=== PATIENT | female | born 1955 | race Caucasian/White ===

== ENCOUNTER 2017-09-12 16:19 | Inpatient (IN) | payer MEDICARE, SELFPAY ==
[2017-09-12] MEDS: Menthol/Lanolin/Calamine/Znox 113 GM Tube 1 APPLIC TOPICAL (16:20)
[2017-09-12 16:21] VITALS: BP 127/67; PULSE 88; RESP 16; TEMP 36.6; O2SAT 98; BMI 50.8
[2017-09-12 17:16] LABS: Absolute Lymphocyte Count 1.17 X10^3/ul (0.83-4.51); Basophil# 0.05 X10^3/uL; Basophil% 0.5 % (0-1); Eosinophil# 0.85 X10^3/uL; Eosinophils% 8.3 % (0-5); Hematocrit 28.7 % (37-47); Lymphocyte # 1.17 X10^3/ul (4.0); Lymphocyte % 11.4 % (19-41); Mean Corp Hgb Conc 31.4 g/gl (32-36); Mean Corpuscular Hgb 26.2 pg (27.0-32.0); Mean Corpuscular Volume 83.4 fL (81-99); Mean Platelet Vol. 9.5 fl (6.2-12.0); Monocyte# 1.15 X10^3/uL; Monocyte% 11.2 % (0-10); Neutrophil # 7.02 X10^3/uL (2.7-7.7); Neutrophil % 68.4 % (47-70); POSITIVE COUNT NO; POSITIVE DIFFERENTIAL NO; POSITIVE MORPHOLOGY NO; Platelet Count 289 K/mm3 (150-450); RBC Distribution Width CV 14.9 % (11.6-14.6); RBC Distribution Width SD 44.1 fl (35.1-43.9); Red Blood Count 3.44 M/mm3 (4.2-5.4); White Blood Count 10.3 K/mm3 (4.4-11.0)
--- NOTE | 2017-09-12 17:20 | RAD_ITS ---
STUDY: X-RAY - RIGHT FOOT CLINICAL: Female, 61 years old. Diabetic foot ulcer. TECHNIQUE: 3 view(s) of the foot. COMPARISON: 03/20/2017 FINDINGS: The patient is status post amputation of the first toe. There is no evidence of fracture or dislocation. There are no definite radiographic findings of osteomyelitis. There is a stable plantar calcaneal spur. There is mild soft tissue swelling. RAD/Foot min 3 Views IMPRESSION: Status post amputation of the right first toe. No fracture or dislocation. No definite radiographic findings of osteomyelitis. If concern persists, consider further evaluation with MRI. Soft tissue swelling. Electronically Signed: Sonny Weber, at 17:39 EDT Tel , Service support ,
[2017-09-12 17:24] LABS: Anion Gap 9 (5-15); BUN 75 mg/dL (7-18); BUN/Creat Ratio 22.1 RATIO (10-20); Calcium,Total 9.7 mg/dL (8.5-10.1); Chloride 105 mmol/L (98-107); EST Glomerular Filtration Rate 15 mL/min (>60); Est Glom Filt Rate - Afr Amer 18 mL/min (>60); Estimated Creatinine Clearance 17.32 ml/min; Glucose 155 mg/dL (74-106); Potassium 5.6 mmol/L (3.5-5.1); Sodium Level 139 mmol/L (136-145)
[2017-09-12 18:11] LABS: Erythrocyte Sedimentation Rate 24 mm/hr (0-30)
[2017-09-12 18:25] VITALS: BP 133/59; PULSE 84; O2SAT 98
--- NOTE | 2017-09-12 18:32 | ED.VISSUMM ---
- ER Visit Summary Date of Service: 09/12/17 Chief Complaint: Right diabetic foot infection History of Present Illness: The patient is a 61 F of insulin-dependent diabetes and renal insufficiency. She has had a prior left below-knee amputation from a prior diabetic infection. She has no neuropathies. She states for the last 2 days she has had redness and swelling to the medial and underneath surface of her right foot. She has no sensation of the foot so she does not feel any pain. She denies any fever. Physical Examination: Well-appearing middle-aged female. Vital signs are stable afebrile. HEENT exam unremarkable. Lungs clear to auscultation bilaterally. Heart regular rate and rhythm no murmur. Abdomen soft and nontender no peritoneal signs. She is moving all 4 extremities. Her left lower extremity below the knee is amputated. Her right foot on the middle and underneath surface is red warm to touch boggy and swollen. She does not have any pain and has neuropathy and does not have any sensation. Her right great toe has been previously amputated. There is an open wound also to the medial aspect of the foot. There is no purulent discharge. There is no lymphangitic streaking. There is no septic joint. There is no necrotic skin. Neurologically she is awake and alert. No focal motor deficits. Test Results: CBC showed a white count 10. H&H of 9 and 28 which is her baseline chronic anemia. Her sedimentation rate was 24. Her elect lites showed a potassium of 5.6. Gap of 9. Her BUN and creatinine were 75 and 3.4 most recent creatinine was 1.7 this is acute on chronic renal insufficiency. X-ray of the right foot showed a prior amputated great toe but no obvious signs of osteomyelitis. Nor any gas gangrene. Read both by myself and radiologist. Emergency Department Course and Treatment: Patient has an obvious right foot diabetic infection. She was treated with IV Zosyn. And will need to be admitted. Treatment Plan: I spoke with the hospitalist who will admit the patient to the floor. Disposition: Admission Impression: Acute right diabetic foot infection Acute on chronic renal insufficiency History of insulin-dependent diabetes This note was generated with [employer] software. It may contain incorrect words, spelling, and punctuation that were not noted in review of the chart prior to signing ED Disposition - Plan for ED Patient: Chief Complaint: Wound Referrals: Leroy Marie MD [Primary Care Provider] -
--- NOTE | 2017-09-12 18:35 | ED.DCSUM_ITS ---
- ER Visit Summary Date of Service: 09/12/17 Chief Complaint: Right diabetic foot infection History of Present Illness: The patient is a 61 F of insulin-dependent diabetes and renal insufficiency. She has had a prior left below-knee amputation from a prior diabetic infection. She has no neuropathies. She states for the last 2 days she has had redness and swelling to the medial and underneath surface of her right foot. She has no sensation of the foot so she does not feel any pain. She denies any fever. Physical Examination: Well-appearing middle-aged female. Vital signs are stable afebrile. HEENT exam unremarkable. Lungs clear to auscultation bilaterally. Heart regular rate and rhythm no murmur. Abdomen soft and nontender no peritoneal signs. She is moving all 4 extremities. Her left lower extremity below the knee is amputated. Her right foot on the middle and underneath surface is red warm to touch boggy and swollen. She does not have any pain and has neuropathy and does not have any sensation. Her right great toe has been previously amputated. There is an open wound also to the medial aspect of the foot. There is no purulent discharge. There is no lymphangitic streaking. There is no septic joint. There is no necrotic skin. Neurologically she is awake and alert. No focal motor deficits. Test Results: CBC showed a white count 10. H&H of 9 and 28 which is her baseline chronic anemia. Her sedimentation rate was 24. Her elect lites showed a potassium of 5.6. Gap of 9. Her BUN and creatinine were 75 and 3.4 most recent creatinine was 1.7 this is acute on chronic renal insufficiency. X- ray of the right foot showed a prior amputated great toe but no obvious signs of osteomyelitis. Nor any gas gangrene. Read both by myself and radiologist. Emergency Department Course and Treatment: Patient has an obvious right foot diabetic infection. She was treated with IV Zosyn. And will need to be admitted. Treatment Plan: I spoke with the hospitalist who will admit the patient to the floor. Disposition: Admission Impression: Acute right diabetic foot infection Acute on chronic renal insufficiency History of insulin-dependent diabetes This note was generated with [employer] software. It may contain incorrect words, spelling, and punctuation that were not noted in review of the chart prior to signing ED Disposition - Plan for ED Patient: Chief Complaint: Wound Referrals: Leroy Marie MD [Primary Care Provider] -
[2017-09-12 18:43] VITALS: BP 133/59; PULSE 85; RESP 16; O2SAT 96
--- NOTE | 2017-09-12 18:48 | PCM.HP.STD ---
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 The patient is a 61 year old F with multiple medical comorbidities as mentioned above was referred from the custodial because of right foot infected ulcer with erythema and swelling. The patient had a history of peripheral neuropathies and she mentioned that over the last couple of days, the nursing staff at the custodial noticed that there is some redness and swelling at the bottom of the right foot. Today, a doctor from the wound care center saw the patient at the custodial and recommended to be transferred to emergency department for evaluation. She denied any right foot pain. She denies any fever chills. She had a history of type 2 diabetes mellitus has been on high doses of insulin and her sugar is not well controlled, most recent A1c was back in March, and it was 7.9. She had a history of stage III chronic kidney disease and her baseline creatinine has been around 1.5-2 mg/dL but her creatinine today is 3.40 which is worsened compared to her baseline. She has a history of left below-knee amputation secondary to left diabetic foot and leg infections. She was admitted back in March, for right foot cellulitis/bulla and there was no evidence of osteomyelitis at that time and she had no intervention or surgery at that time too. In the emergency department, her vital signs are stable. Her routine blood work was remarkable for chronic anemia, potassium is 5.6 and creatinine is 3.40. X-ray of the right foot showed soft tissue swelling, no acute findings, no evidence of osteomyelitis. She is being admitted for infected diabetic right foot ulcer/cellulitis acute on chronic renal failure and mild hyperkalemia. Past Medical History Past Medical History (Chronic Problems): Chronic Problems History of tobacco abuse (Chronic) HLD (hyperlipidemia) (Chronic) HTN (hypertension) (Chronic) Morbid obesity (Chronic) bmi 46 Noncompliance (Chronic) with diabetic therapy Personality disorder (Chronic) History of self-harm (Chronic) scratching and picking Self neglect (Chronic) Type 2 diabetes mellitus (Chronic) Bipolar disorder (Chronic) Anxiety (Chronic) 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 2 diabetes mellitus with diabetic polyneuropathy (Chronic) Allergies adhesive Allergy (Verified 09/12/17 16:21) Rash cefadroxil hydrate [From Duricef] Allergy (Verified 09/12/17 16:21) Rash cephalexin monohydrate [From Keflex] Allergy (Verified 09/12/17 16:21) Rash venom-honey bee [bee venom (honey bee)] Allergy (Verified 09/12/17 16:21) Rash Home Medications: Ambulatory Orders Medication Instructions Recorded Quetiapine Fumarate [Seroquel] 200 mg PO QHS 01/06/13 Ascorbic Acid [Vitamin C] 500 mg PO BIDCM #30 tablet 10/10/13 Multivitamins,Therapeutic 1 tablet PO DAILYCM #30 tablet 10/10/13 [Multivitamin] Calcium Citrate/Vitamin D3 1 each PO BID 01/21/15 [Calcium Citrate-Vit D3 Tablet] Ferrous Sulfate 65 mg PO BIDCM 01/21/15 Lisinopril [Zestril] 20 mg PO BID 03/05/16 Acetaminophen [Tylenol Tablet] 650 mg PO Q8 PRN 03/20/17 Bisacodyl 10 mg RC DAILY PRN PRN 03/20/17 Hydrocortisone [Anusol Hc] 25 mg RECTAL 4X/DAY PRN PRN 03/20/17 Insulin Glargine,Hum.rec.anlog 55 unit SC DAILY 03/20/17 [Lantus] Insulin Lispro [Humalog] See Protocol SQ ACHS 03/20/17 Magnesium Hydroxide [Milk Of 30 ml PO DAILY PRN PRN 03/20/17 Magnesia] Promethazine HCl [Promethegan] 25 mg RC Q6H PRN 03/20/17 Venlafaxine XR [Effexor Xr] 225 mg PO DAILY 03/20/17 Apixaban [Eliquis] 5 mg PO BID 09/12/17 Cholecalciferol (Vitamin D3) 2,000 unit PO DAILY 09/12/17 [Vitamin D3] Cilostazol [Pletal] 50 mg PO BIDAC 09/12/17 Cyclobenzaprine [Flexeril] 10 mg PO QHS PRN 09/12/17 Furosemide [Lasix] 20 mg PO DAILY 09/12/17 Guaifenesin [Robitussin] 10 ml PO Q6H PRN PRN 09/12/17 Hydroxyzine HCl 25 mg PO DAILY 09/12/17 Insulin Glargine,Hum.rec.anlog 40 unit SC QHS 09/12/17 [Lantus] Loperamide [Imodium] 2 mg PO PRN PRN MDD 4 tabs/day 09/12/17 Paroxetine HCl [Paxil] 20 mg PO DAILY 09/12/17 Pravastatin [Pravachol] 10 mg PO DAILY 09/12/17 Sodium Chloride [Saline Nasal 2 spray NS Q2H PRN 09/12/17 [place]] Zinc Oxide 1 applic TOPICAL TID 09/12/17 hydrOXYzine pamoate capsule 50 mg PO QHS 09/12/17 [Vistaril pamoate capsule] Surgical History: - - foot surgeries, right great toe amputation, left below the knee amputation Psychiatric History: Anxiety, Bipolar, - - Picking disorder [employer] History: No pertinent [employer] history [place]: [place] Smoking Status: Former smoker Alcohol: None Drugs: None - *Family History Maternal History Items: - - No heart disease Paternal History Items: No pertinent history Review of Systems Constitutional: Denies: Anorexia, Chills, Fever, Weakness Eyes: Denies: Blurred vision, Double vision, Drainage, Redness HEENT: Denies: Difficulty Hearing, Ear Pain, Eye Pain, Nasal Congestion, Sore Throat Cardiovascular: Denies: Chest Pain, Chest Pressure, Chest Tightness, Heaviness, Palpitations, Syncope Respiratory: Denies: Cough, Pleuritic Pain, Shortness of Breath, Sputum production, Wheezing Gastrointestinal: Denies: Abdominal Pain, Constipation, Diarrhea, Nausea, Vomiting Genitourinary: Denies: Dysuria, Frequency, Hematuria Musculoskeletal: Denies: Arm Pain, Back Pain, Foot Pain Skin: Denies: Dryness, Rash Neurological: Denies: Balance problems, Double vision, Change in Speech, Headaches, Numbness Psychiatric: Reports: Anxiety, Depression Endocrine: Denies: Change in Body Habitus, Polydipsia VTE Information - Inpt Only VTE Present on Admission: No VTE Mechan Device Prophylaxis: None VTE Pharm Prophylaxis ordered?: No - Physical Exam General: Alert, Oriented x3, Cooperative, No apparent distress HEENT: Atraumatic, PERRLA, EOMI, Normocephalic Oral: Moist Mucosa, No Gingival or Mucosal Lesions/ Ulcerations Neck: Supple, No JVD, Negative Carotid Bruits, Trachea Midline, Thyroid Normal Size and Texture Lungs: Clear to auscultation, No rhonchi, No wheeze, No rales, Diminished Cardiovascular: Regular rate, Regular Rhythm, Normal S1, Normal S2, PMI Normal Abdomen: Bowel Sounds Present, Soft, Non Tender, Non-Distended, No Hepato-splenomegaly, Obese Extremities: No clubbing, No cyanosis, Edema Skin: No rashes, Ulcer/ Wound, - - Right foot: There is and also on the plantar lateral aspect of the right foot measuring about 3 x 3 cm with exposed fat layer surrounded by erythema and swelling. Musculoskeletal: - - Status post below left knee amputation. Neurological: Cranial nerves II-XII grossly intact, Neuro grossly intact Psych/Mental Status: Normal Affect, Appropriate, Alert and oriented to time, place, person, mood and affect Vital Signs Temp Pulse Resp BP Pulse Ox 97.9 F 85 16 133/59 H 96 09/12/17 16:21 09/12/17 18:43 09/12/17 18:43 09/12/17 18:43 09/12/17 18:43 Oxygen Delivery Method Room Air Weight: 325 lb Body Mass Index (BMI) 50.8 Laboratory Tests Past 24 Hrs 09/12/17 09/12/17 16:50 16:50 WBC 10.3 RBC 3.44 L Hgb 9.0 L Hct 28.7 L MCV 83.4 MCH 26.2 L MCHC 31.4 L RDW 14.9 H RDW Differential 44.1 H Plt Count 289 MPV 9.5 Immature Gran % (Auto) 0.200 Neut % (Auto) 68.4 Lymph % (Auto) 11.4 L Payette % (Auto) 11.2 H Eos % (Auto) 8.3 H Baso % (Auto) 0.5 Absolute Neuts (auto) 7.0 Absolute Lymphs (auto) 1.17 Total Counted Not Reportable ESR 24 Sodium 139 Potassium 5.6 H Chloride 105 Carbon Dioxide 25.0 Anion Gap 9 BUN 75 H Creatinine 3.40 H Estim Creat Clear Calc 17.32 Est GFR (MDRD) Af Amer 18 L Est GFR (MDRD) Non-Af 15 L BUN/Creatinine Ratio 22.1 H Glucose 155 H Calcium 9.7 Clinical Impression(s) from Imaging Studies Foot X-Ray 09/12/17 17:20 IMPRESSION: Status post amputation of the right first toe. No fracture or dislocation. No definite radiographic findings of osteomyelitis. If concern persists, consider further evaluation with MRI. Soft tissue swelling. 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 #1 acute diabetic infected right foot ulcer/cellulitis: Vital signs are stable, no evidence of sepsis or severe sepsis. She is afebrile, no leukocytosis. Plan: Admit to MedSurg floor, cardiac monitoring, stat blood culture, wound culture, MRSA wound screen, start IV vancomycin and Zosyn, ESR and C-reactive protein, podiatry consult, repeat CBC and BMP tomorrow morning, PT OT evaluation and treatment. Patient is on Eliquis twice daily and she is not sure why she is on Eliquis, need to clarify with the custodial. #2 acute kidney injury on top of stage III chronic kidney disease: Baseline creatinine has been around 1.4-2 mg/dL. Admission creatinine is 3.40. Plan: IV fluids, input of the chart, hold Lasix and lisinopril, repeat BMP tomorrow morning. #3 mild hyperkalemia: Potassium is 5.6. Plan to perform an EKG, IV fluids with normal saline, repeat BMP tomorrow morning, hold lisinopril. #4 type 2 diabetes mellitus: ADA diet, Accu-Cheks, and systolic scale, continue home doses of Lantus. #5 hypertension: Blood pressure stable, hold Lasix and lisinopril, IV hydralazine as needed. #6 hyperlipidemia: Continue statins. #7 anxiety/bipolar disorder: Continue Paxil and Effexor. #8 chronic anemia: Baseline hemoglobin around 8-11 g/dL, admission hemoglobin is 9 g/dL, stable at baseline. #9 DVT prophylaxis: Subcu heparin. This note was generated with [employer] dictation software. It may contain incorrect words, spelling, and punctuation that were not noted in checking the note before signing. Code Visit Inpatient E&M: 01168 Init Hosp L3
--- NOTE | 2017-09-12 18:58 | HP.PCM_ITS ---
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 The patient is a 61 year old F with multiple medical comorbidities as mentioned above was referred from the snf because of right foot infected ulcer with erythema and swelling. The patient had a history of peripheral neuropathies and she mentioned that over the last couple of days, the nursing staff at the snf noticed that there is some redness and swelling at the bottom of the right foot. Today, a doctor from the wound care center saw the patient at the snf and recommended to be transferred to emergency department for evaluation. She denied any right foot pain. She denies any fever chills. She had a history of type 2 diabetes mellitus has been on high doses of insulin and her sugar is not well controlled, most recent A1c was back in March, and it was 7.9. She had a history of stage III chronic kidney disease and her baseline creatinine has been around 1.5-2 mg/dL but her creatinine today is 3.40 which is worsened compared to her baseline. She has a history of left below-knee amputation secondary to left diabetic foot and leg infections. She was admitted back in March, for right foot cellulitis/ bulla and there was no evidence of osteomyelitis at that time and she had no intervention or surgery at that time too. In the emergency department, her vital signs are stable. Her routine blood work was remarkable for chronic anemia, potassium is 5.6 and creatinine is 3.40. X-ray of the right foot showed soft tissue swelling, no acute findings, no evidence of osteomyelitis. She is being admitted for infected diabetic right foot ulcer/cellulitis acute on chronic renal failure and mild hyperkalemia. Past Medical History Past Medical History (Chronic Problems): Chronic Problems History of tobacco abuse (Chronic) HLD (hyperlipidemia) (Chronic) HTN (hypertension) (Chronic) Morbid obesity (Chronic) bmi 46 Noncompliance (Chronic) with diabetic therapy Personality disorder (Chronic) History of self-harm (Chronic) scratching and picking Self neglect (Chronic) Type 2 diabetes mellitus (Chronic) Bipolar disorder (Chronic) Anxiety (Chronic) 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 2 diabetes mellitus with diabetic polyneuropathy (Chronic) Allergies adhesive Allergy (Verified 09/12/17 16:21) Rash cefadroxil hydrate [From Duricef] Allergy (Verified 09/12/17 16:21) Rash cephalexin monohydrate [From Keflex] Allergy (Verified 09/12/17 16:21) Rash venom-honey bee [bee venom (honey bee)] Allergy (Verified 09/12/17 16:21) Rash Home Medications: Ambulatory Orders Medication Instructions Recorded Quetiapine Fumarate [Seroquel] 200 mg PO QHS 01/06/13 Ascorbic Acid [Vitamin C] 500 mg PO BIDCM #30 tablet 10/10/13 Multivitamins,Therapeutic 1 tablet PO DAILYCM #30 tablet 10/10/13 [Multivitamin] Calcium Citrate/Vitamin D3 1 each PO BID 01/21/15 [Calcium Citrate-Vit D3 Tablet] Ferrous Sulfate 65 mg PO BIDCM 01/21/15 Lisinopril [Zestril] 20 mg PO BID 03/05/16 Acetaminophen [Tylenol Tablet] 650 mg PO Q8 PRN 03/20/17 Bisacodyl 10 mg RC DAILY PRN PRN 03/20/17 Hydrocortisone [Anusol Hc] 25 mg RECTAL 4X/DAY PRN PRN 03/20/17 Insulin Glargine,Hum.rec.anlog 55 unit SC DAILY 03/20/17 [Lantus] Insulin Lispro [Humalog] See Protocol SQ ACHS 03/20/17 Magnesium Hydroxide [Milk Of 30 ml PO DAILY PRN PRN 03/20/17 Magnesia] Promethazine HCl [Promethegan] 25 mg RC Q6H PRN 03/20/17 Venlafaxine XR [Effexor Xr] 225 mg PO DAILY 03/20/17 Apixaban [Eliquis] 5 mg PO BID 09/12/17 Cholecalciferol (Vitamin D3) 2,000 unit PO DAILY 09/12/17 [Vitamin D3] Cilostazol [Pletal] 50 mg PO BIDAC 09/12/17 Cyclobenzaprine [Flexeril] 10 mg PO QHS PRN 09/12/17 Furosemide [Lasix] 20 mg PO DAILY 09/12/17 Guaifenesin [Robitussin] 10 ml PO Q6H PRN PRN 09/12/17 Hydroxyzine HCl 25 mg PO DAILY 09/12/17 Insulin Glargine,Hum.rec.anlog 40 unit SC QHS 09/12/17 [Lantus] Loperamide [Imodium] 2 mg PO PRN PRN MDD 4 tabs/day 09/12/17 Paroxetine HCl [Paxil] 20 mg PO DAILY 09/12/17 Pravastatin [Pravachol] 10 mg PO DAILY 09/12/17 Sodium Chloride [Saline Nasal 2 spray NS Q2H PRN 09/12/17 [place]] Zinc Oxide 1 applic TOPICAL TID 09/12/17 hydrOXYzine pamoate capsule 50 mg PO QHS 09/12/17 [Vistaril pamoate capsule] Surgical History: - - foot surgeries, right great toe amputation, left below the knee amputation Psychiatric History: Anxiety, Bipolar, - - Picking disorder 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 Lives: Longterm Smoking Status: Former smoker Alcohol: None Drugs: None - *Family History Maternal History Items: - - No heart disease Paternal History Items: No pertinent history Review of Systems Constitutional: Denies: Anorexia, Chills, Fever, Weakness Eyes: Denies: Blurred vision, Double vision, Drainage, Redness HEENT: Denies: Difficulty Hearing, Ear Pain, Eye Pain, Nasal Congestion, Sore Throat Cardiovascular: Denies: Chest Pain, Chest Pressure, Chest Tightness, Heaviness, Palpitations, Syncope Respiratory: Denies: Cough, Pleuritic Pain, Shortness of Breath, Sputum production, Wheezing Gastrointestinal: Denies: Abdominal Pain, Constipation, Diarrhea, Nausea, Vomiting Genitourinary: Denies: Dysuria, Frequency, Hematuria Musculoskeletal: Denies: Arm Pain, Back Pain, Foot Pain Skin: Denies: Dryness, Rash Neurological: Denies: Balance problems, Double vision, Change in Speech, Headaches, Numbness Psychiatric: Reports: Anxiety, Depression Endocrine: Denies: Change in Body Habitus, Polydipsia VTE Information - Inpt Only VTE Present on Admission: No VTE Mechan Device Prophylaxis: None VTE Pharm Prophylaxis ordered?: No - Physical Exam General: Alert, Oriented x3, Cooperative, No apparent distress HEENT: Atraumatic, PERRLA, EOMI, Normocephalic Oral: Moist Mucosa, No Gingival or Mucosal Lesions/ Ulcerations Neck: Supple, No JVD, Negative Carotid Bruits, Trachea Midline, Thyroid Normal Size and Texture Lungs: Clear to auscultation, No rhonchi, No wheeze, No rales, Diminished Cardiovascular: Regular rate, Regular Rhythm, Normal S1, Normal S2, PMI Normal Abdomen: Bowel Sounds Present, Soft, Non Tender, Non-Distended, No Hepato- splenomegaly, Obese Extremities: No clubbing, No cyanosis, Edema Skin: No rashes, Ulcer/ Wound, - - Right foot: There is and also on the plantar lateral aspect of the right foot measuring about 3 x 3 cm with exposed fat layer surrounded by erythema and swelling. Musculoskeletal: - - Status post below left knee amputation. Neurological: Cranial nerves II-XII grossly intact, Neuro grossly intact Psych/Mental Status: Normal Affect, Appropriate, Alert and oriented to time, place, person, mood and affect Vital Signs Temp Pulse Resp BP Pulse Ox 97.9 F 85 16 133/59 H 96 09/12/17 16:21 09/12/17 18:43 09/12/17 18:43 09/12/17 18:43 09/12/17 18:43 Oxygen Delivery Method Room Air Weight: 325 lb Body Mass Index (BMI) 50.8 Laboratory Tests Past 24 Hrs 09/12/17 09/12/17 16:50 16:50 WBC 10.3 RBC 3.44 L Hgb 9.0 L Hct 28.7 L MCV 83.4 MCH 26.2 L MCHC 31.4 L RDW 14.9 H RDW Differential 44.1 H Plt Count 289 MPV 9.5 Immature Gran % (Auto) 0.200 Neut % (Auto) 68.4 Lymph % (Auto) 11.4 L [place] % (Auto) 11.2 H Eos % (Auto) 8.3 H Baso % (Auto) 0.5 Absolute Neuts (auto) 7.0 Absolute Lymphs (auto) 1.17 Total Counted Not Reportable ESR 24 Sodium 139 Potassium 5.6 H Chloride 105 Carbon Dioxide 25.0 Anion Gap 9 BUN 75 H Creatinine 3.40 H Estim Creat Clear Calc 17.32 Est GFR (MDRD) Af Amer 18 L Est GFR (MDRD) Non-Af 15 L BUN/Creatinine Ratio 22.1 H Glucose 155 H Calcium 9.7 Clinical Impression(s) from Imaging Studies Foot X-Ray 09/12/17 17:20 IMPRESSION: Status post amputation of the right first toe. No fracture or dislocation. No definite radiographic findings of osteomyelitis. If concern persists, consider further evaluation with MRI. Soft tissue swelling. Electronically Signed: Sonny Weber, at 17:39 EDT Tel , Service support , Assessment/Plan All Active Problems MSSA (methicillin susceptible Staphylococcus aureus) (Resolved) Mycotic cystitis (Resolved) Osteomyelitis (Resolved) Osteomyelitis due to secondary diabetes (Resolved) This is a 61 years old female patient was referred from the snf by the wound care center for right foot diabetic infected ulcer with erythema and swelling and she is being admitted for diabetic infected right foot ulcer/ cellulitis as well as acute kidney injury double stage III chronic kidney disease and mild hyperkalemia. #1 acute diabetic infected right foot ulcer/cellulitis: Vital signs are stable, no evidence of sepsis or severe sepsis. She is afebrile, no leukocytosis. Plan : Admit to MedSurg floor, cardiac monitoring, stat blood culture, wound culture , MRSA wound screen, start IV vancomycin and Zosyn, ESR and C-reactive protein, podiatry consult, repeat CBC and BMP tomorrow morning, PT OT evaluation and treatment. Patient is on Eliquis twice daily and she is not sure why she is on Eliquis, need to clarify with the snf. #2 acute kidney injury on top of stage III chronic kidney disease: Baseline creatinine has been around 1.4-2 mg/dL. Admission creatinine is 3.40. Plan: IV fluids, input of the chart, hold Lasix and lisinopril, repeat BMP tomorrow morning. #3 mild hyperkalemia: Potassium is 5.6. Plan to perform an EKG, IV fluids with normal saline, repeat BMP tomorrow morning, hold lisinopril. #4 type 2 diabetes mellitus: ADA diet, Accu-Cheks, and systolic scale, continue home doses of Lantus. #5 hypertension: Blood pressure stable, hold Lasix and lisinopril, IV hydralazine as needed. #6 hyperlipidemia: Continue statins. #7 anxiety/bipolar disorder: Continue Paxil and Effexor. #8 chronic anemia: Baseline hemoglobin around 8-11 g/dL, admission hemoglobin is 9 g/dL, stable at baseline. #9 DVT prophylaxis: Subcu heparin. This note was generated with [employer] dictation software. It may contain incorrect words, spelling, and punctuation that were not noted in checking the note before signing. Code Visit Inpatient E&M: 23256 Init Hosp L3
--- NOTE | 2017-09-12 19:12 | EKG12_ITS ---
Test Reason : HYPERTENSION Blood Pressure : / mmHG Vent. Rate : 086 BPM Atrial Rate : 086 BPM P-R Int : 196 ms QRS Dur : 082 ms QT Int : 362 ms P-R-T Axes : 049 -01 158 degrees QTc Int : 433 ms Normal sinus rhythm Nonspecific ST and T wave abnormality Abnormal ECG When compared with ECG of 05-MAR-2016 13:46, No significant change was found Confirmed by LEONARD SHARMA ([id number]), editor index SIVA DOUGLAS ([id number]) on 09/23/2017 3:03:29 PM Referred By: LILIYA Confirmed By:LEONARD SHARMA
[2017-09-12 19:17] VITALS: BMI 53.7
[2017-09-12 19:24] VITALS: BP 117/52; PULSE 86; RESP 20; TEMP 36.7; O2SAT 100
[2017-09-12 19:34] VITALS: BMI 53.8
[2017-09-12] MEDS: 0.9% Normal Saline 1,000 ML 100 ML IV (20:26)
--- NOTE | 2017-09-12 20:46 | PCM.RX.CS ---
Consult Type of Consult: New start Suspected Infection: Skin/Soft tissue Labs: Sodium 139 mmol/L (136-145) 09/12/17 16:50 Potassium 5.6 mmol/L (3.5-5.1) H 09/12/17 16:50 Chloride 105 mmol/L (98-107) 09/12/17 16:50 Carbon Dioxide 25.0 mmol/L (21.0-32.0) 09/12/17 16:50 Anion Gap 9 (5-15) 09/12/17 16:50 BUN 75 mg/dL (7-18) H 09/12/17 16:50 Creatinine 3.40 mg/dL (0.55-1.02) H 09/12/17 16:50 Est GFR (MDRD) Af Amer 18 mL/min (>60) L 09/12/17 16:50 Est GFR (MDRD) Non-Af 15 mL/min (>60) L 09/12/17 16:50 BUN/Creatinine Ratio 22.1 RATIO (10-20) H 09/12/17 16:50 Glucose 155 mg/dL (74-106) H 09/12/17 16:50 Weight used for dosin.7 kg Estimated Creatinine Clearance: 17 ML/MIN Goal Trough: 10-15 mcg/mL Pharmacy Plan for Drug Dosing: Patient with cellulitis/ulcer of foot. Initial Cr 3.4 with CrCl ~17. Will give initial dose of 2000mg vancomycin x 1. Will follow with random vancomycin level in AM on 09.14.17 and order further vancomycin after level and renal status reviewed. Pharmacy Service will continue to monitor and adjust dosing as required. Follow-Up Labs: Trough Vancomycin - random level 0900 09.14.17
--- NOTE | 2017-09-12 21:48 | PCM.PROGNOTE ---
Patient Problems: Active and Suspected Problems Diabetic ulcer of right foot (Acute) Type 2 diabetes mellitus with diabetic polyneuropathy (Acute) Cellulitis of right foot (Acute) Subjective: This 61 year old female with multiple comorbidities was seen this evening resting bedside. She was consulted to podiatry for right lateral foot ulcer with some cellulitis. Patient has been being seen by wound care doctor at her assisted on a weekly basis and receiving daily dressing changes. She says her nurses the last couple of days have noticed some redness starting around the ulcer site and that she was sent to the ER today. She was then admitted to the floor. She has had a previous left BKA and previous amputation of her right hallux and partial amputation of her right 2nd and 3rd toes. Currently the patient denies any feelings of nausea, vomiting, fever, or chills. - Physical Exam General: Alert, Oriented x3, Cooperative, No apparent distress Extremities: Capillary Refill Less than 3 Seconds, No Calf Tenderness - negative papa and sanchez sign, Diminished Peripheral Pulses, Edema - right lower extremity edema appreciated Skin: Ulcer/ Wound - Ulcer appreciated to right lateral foot with fat layer exposed. The ulcer measures approx 2cm x 2cm. The base is mixture of fibrous and granular tissue with some surrounding hyperkeratotic tissue as well. Slight amount of adherent slough noted. There is no purulence appreciated. Scant amount of serosanguinous drainage. There is some surrounding erythema/cellulitis that is outlined. No significant increase in warmth appreciated to the area. Patient denies any pain. Musculoskeletal: - - Left BKA. Inverted right foot. Previous right hallux amp as well as partial right 2nd and 3rd toe amputations. No tenderness to ulcer site due to neuropathy Neurological: - - epicritic sensation grossly absent to lower extremity Psych/Mental Status: Normal Affect, Appropriate Vital Signs Temp Pulse Resp BP Pulse Ox 98.1 F 86 20 H 117/52 L 100 09/12/17 19:24 09/12/17 19:24 09/12/17 19:24 09/12/17 19:24 09/12/17 19:24 Oxygen Delivery Method Room Air Weight: 155.7 kg Body Mass Index (BMI) 53.7 Medical Necessity - Tobacco Use Smoking Status: Former smoker Assessment/Plan All Active Problems Diabetic ulcer of right foot (Acute) Type 2 diabetes mellitus with diabetic polyneuropathy (Acute) Cellulitis of right foot (Acute) MSSA (methicillin susceptible Staphylococcus aureus) (Resolved) Mycotic cystitis (Resolved) Osteomyelitis (Resolved) 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 Patient is afebrile. Her WBC is 10.3. ESR is 24 and CRP is 75.5. Wound cultures were taken and sent for aerobic, anaerobic, and mrsa pcr evaluation. Consider ID consult. Results are pending. Blood cultures are still pending. Right foot x-rays taken and results were read as soft tissue swelling, no definite radiographic findings of osteomyelitis and no soft tissue emphysema. Possible MRI if needed. LEAS studies were ordered and will follow for results. Ulcer site was cleansed and then dressed with aquacel ag, 4x4s, ABDs, and kerlix. Patient already has padded offloading boot with her from her assisted and this was applied. A pillow was placed under the patients ankle/calf in order to float the foot to keep pressure completely off of the ulcer site. Patient is to be non weight bearing to this foot with no pressure to the ulcer at all times. Podiatry will continue to follow while in house.
[2017-09-12 21:58] LABS: M R Staph aureus DNA By PCR Negative (Negative); Probe Check PASS; Specimen Processing Control PASS; Staph aureus DNA By PCR POSITIVE (Negative)
--- NOTE | 2017-09-12 21:58 | PN_ITS ---
Patient Problems: Active and Suspected Problems Diabetic ulcer of right foot (Acute) Type 2 diabetes mellitus with diabetic polyneuropathy (Acute) Cellulitis of right foot (Acute) Subjective: This 61 year old female with multiple comorbidities was seen this evening resting bedside. She was consulted to podiatry for right lateral foot ulcer with some cellulitis. Patient has been being seen by wound care doctor at her [facility] on a weekly basis and receiving daily dressing changes. She says her nurses the last couple of days have noticed some redness starting around the ulcer site and that she was sent to the ER today. She was then admitted to the floor. She has had a previous left BKA and previous amputation of her right hallux and partial amputation of her right 2nd and 3rd toes. Currently the patient denies any feelings of nausea, vomiting, fever, or chills. - Physical Exam General: Alert, Oriented x3, Cooperative, No apparent distress Extremities: Capillary Refill Less than 3 Seconds, No Calf Tenderness - negative papa and sanchez sign, Diminished Peripheral Pulses, Edema - right lower extremity edema appreciated Skin: Ulcer/ Wound - Ulcer appreciated to right lateral foot with fat layer exposed. The ulcer measures approx 2cm x 2cm. The base is mixture of fibrous and granular tissue with some surrounding hyperkeratotic tissue as well. Slight amount of adherent slough noted. There is no purulence appreciated. Scant amount of serosanguinous drainage. There is some surrounding erythema/ cellulitis that is outlined. No significant increase in warmth appreciated to the area. Patient denies any pain. Musculoskeletal: - - Left BKA. Inverted right foot. Previous right hallux amp as well as partial right 2nd and 3rd toe amputations. No tenderness to ulcer site due to neuropathy Neurological: - - epicritic sensation grossly absent to lower extremity Psych/Mental Status: Normal Affect, Appropriate Vital Signs Temp Pulse Resp BP Pulse Ox 98.1 F 86 20 H 117/52 L 100 09/12/17 19:24 09/12/17 19:24 09/12/17 19:24 09/12/17 19:24 09/12/17 19:24 Oxygen Delivery Method Room Air Weight: 155.7 kg Body Mass Index (BMI) 53.7 Medical Necessity - Tobacco Use Smoking Status: Former smoker Assessment/Plan All Active Problems Diabetic ulcer of right foot (Acute) Type 2 diabetes mellitus with diabetic polyneuropathy (Acute) Cellulitis of right foot (Acute) MSSA (methicillin susceptible Staphylococcus aureus) (Resolved) Mycotic cystitis (Resolved) Osteomyelitis (Resolved) 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 Patient is afebrile. Her WBC is 10.3. ESR is 24 and CRP is 75.5. Wound cultures were taken and sent for aerobic, anaerobic, and mrsa pcr evaluation. Consider ID consult. Results are pending. Blood cultures are still pending. Right foot x-rays taken and results were read as soft tissue swelling, no definite radiographic findings of osteomyelitis and no soft tissue emphysema. Possible MRI if needed. LEAS studies were ordered and will follow for results. Ulcer site was cleansed and then dressed with aquacel ag, 4x4s, ABDs, and kerlix. Patient already has padded offloading boot with her from her [facility] and this was applied. A pillow was placed under the patients ankle/calf in order to float the foot to keep pressure completely off of the ulcer site. Patient is to be non weight bearing to this foot with no pressure to the ulcer at all times. Podiatry will continue to follow while in house.
[2017-09-12 21:59] VITALS: PULSE 93
[2017-09-12] MEDS: Heparin Injection (Vial) 5,000 UNIT/ML VIAL 5000 UNIT SC (22:35)
[2017-09-12] MEDS: Pravastatin 20 MG Tablet 10 MG PO (22:41)
[2017-09-12] MEDS: QUEtiapine 100 MG Tablet 200 MG PO (22:41)
[2017-09-12] MEDS: hydrOXYzine PAM 25 MG Capsule 50 MG PO (22:42)
[2017-09-12] MEDS: Insulin Lispro 100 UNIT/ML INSULN.PEN SQ (22:47)
[2017-09-12 23:56] LABS: Potassium 5.5 mmol/L (3.5-5.1)
[2017-09-13] VITALS (12 sets, daily range): BP systolic 106–129; BP diastolic 53–67; PULSE 81–100; RESP 18; TEMP 36.8–37.1; O2SAT 92–98
[2017-09-13 05:53] LABS: Absolute Lymphocyte Count 0.61 X10^3/ul (0.83-4.51); Absolute Neutrophil Count 6.2 X10^3/uL (2.0-7.7); Basophil# 0.04 X10^3/uL; Basophil% 0.5 % (0-1); Eosinophil# 0.74 X10^3/uL; Eosinophils% 8.6 % (0-5); Hematocrit 26.1 % (37-47); Hemoglobin 8.2 g/dl (12.0-15.0); Lymphocyte # 0.61 X10^3/ul (4.0); Lymphocyte % 7.1 % (19-41); Mean Corp Hgb Conc 31.4 g/gl (32-36); Mean Corpuscular Hgb 26.4 pg (27.0-32.0); Mean Corpuscular Volume 83.9 fL (81-99); Mean Platelet Vol. 9.2 fl (6.2-12.0); Monocyte# 0.99 X10^3/uL; Monocyte% 11.6 % (0-10); Neutrophil # 6.18 X10^3/uL (2.7-7.7); Neutrophil % 72.1 % (47-70); Platelet Count 275 K/mm3 (150-450); RBC Distribution Width CV 14.8 % (11.6-14.6); RBC Distribution Width SD 43.8 fl (35.1-43.9); Red Blood Count 3.11 M/mm3 (4.2-5.4); White Blood Count 8.6 K/mm3 (4.4-11.0)
[2017-09-13 06:07] LABS: POSITIVE COUNT NO; POSITIVE DIFFERENTIAL NO; POSITIVE MORPHOLOGY NO
[2017-09-13 06:08] LABS: Anion Gap 7 (5-15); BUN 79 mg/dL (7-18); BUN/Creat Ratio 23.8 RATIO (10-20); Calcium,Total 9.1 mg/dL (8.5-10.1); Chloride 109 mmol/L (98-107); Creatinine, Serum 3.32 mg/dL (0.55-1.02); EST Glomerular Filtration Rate 15 mL/min (>60); Est Glom Filt Rate - Afr Amer 18 mL/min (>60); Estimated Creatinine Clearance 17.74 ml/min; Glucose 113 mg/dL (74-106); Potassium 5.4 mmol/L (3.5-5.1); Sodium Level 140 mmol/L (136-145)
[2017-09-13] MEDS: Heparin Injection (Vial) 5,000 UNIT/ML VIAL 5000 UNIT SC (06:25)
[2017-09-13] MEDS: Cilostazol 50 MG Tablet PO ×2 (06:27→17:33)
[2017-09-13] MEDS: Ferrous Sulfate 325 MG Tablet PO ×2 (08:15→17:33)
[2017-09-13] MEDS: 0.9% Normal Saline 1,000 ML 100 ML IV ×2 (09:29→10:00)
--- NOTE | 2017-09-13 09:34 | CASEMGMT ---
Social Work Note Pt is from [facility]. STEPHAN in to meet with pt. STEPHAN introduced self and role at [facility]. Pt is alert and orientated x4. Pt confirms that she is from [place] and her plan is to return there at discharge. STEPHAN placed a call to [facility] and spoke with Kayley ROTHMAN. 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 Kayley states that she will need to review pt's clinical information to determine if pt will need pre-cert. STEPHAN faxed available clinicals to Kayley at [facility]. Most likely, if pt requires skilled services she will need pre-cert. Plan: Return to [facility] skilled vs. nonskilled Anette Long GAS PLANT SPECIALIST, POWERTRAIN DESIGN ENGINEER
[2017-09-13] MEDS: Piperacil/Tazobactam 3.375 GM/50 ML ML IV ×2 (10:00→22:45)
[2017-09-13] MEDS: hydrOXYzine PAM 25 MG Capsule PO (10:01)
[2017-09-13] MEDS: Acetaminophen 325 MG Tablet 650 MG PO (10:10)
[2017-09-13] MEDS: Venlafaxine XR 75 MG Capsule 225 MG PO (10:10)
[2017-09-13] MEDS: Insulin Lispro 100 UNIT/ML INSULN.PEN SQ ×2 (11:41→22:43)
[2017-09-13 11:45] LABS: Bedside Glucose 178 mg/dL (70-110)
--- NOTE | 2017-09-13 11:57 | CASEMGMT ---
Social Work Note STEPHAN faxed PT/OT evaluation to Kayley ROTHMAN at [facility]. Per PT/OT evaluation no skilled therapy warranted at this time. Per Kayley, pt won't be able to return skilled due to PT/OT evaluation. Pt is able to return over the weekend, without pre-cert under pt's insurance. Green sheet on chart in the event pt is medically cleared and is able to return this weekend. Plan: Pt will return to [facility] under superintendent generating plant care Anette Long MEDICAL REFERRAL COORDINATOR, ADHESIVE BANDAGE MAKING OPERATOR
--- NOTE | 2017-09-13 16:10 | PCA ---
Pt. refused to be turned to side.
--- NOTE | 2017-09-13 16:41 | PN_ITS ---
Patient Problems: Active and Suspected Problems Cellulitis of right foot (Acute) Type 2 diabetes mellitus with diabetic polyneuropathy (Acute) Diabetic ulcer of right foot (Acute) Subjective: Patient was seen again resting bedside this evening for follow up of right lateral foot ulcer. She is alert and oriented. She has an appetite. She said she had no issues over the evening last night. She says her dressing started slipping down a little bit over the course of the day. Currently she denies any nausea, vomiting, fever, or chills. - Physical Exam General: Alert, Oriented x3, Cooperative, No apparent distress Extremities: Capillary Refill Less than 3 Seconds, No Calf Tenderness - negative papa and sanchez sign, Diminished Peripheral Pulses, Edema - right lower extremity edema noted Skin: Ulcer/ Wound - Ulcer appreciated to right lateral foot with fat layer exposed. The ulcer measures approx 2cm x 2cm. The base is mixture of fibrous and granular tissue with some surrounding hyperkeratotic tissue as well. Slight amount of adherent slough noted. Fibrotic plug to center. There is no purulence appreciated. Scant amount of serosanguinous drainage. There is some surrounding erythema/cellulitis that is outlined, this has slightly decresed since yesterday and is less intense in color as well. No significant increase in warmth appreciated to the area. Patient denies any pain. Musculoskeletal: - - Left BKA. Inverted right foot. Previous right hallux amp as well as partial right 2nd and 3rd toe amputations. No tenderness to ulcer site due to neuropathy Neurological: - - epicritic sensation grossly absent to lower extremity Psych/Mental Status: Normal Affect, Appropriate Vital Signs Temp Pulse Resp BP Pulse Ox 98.2 F 100 18 106/63 97 09/13/17 08:25 09/13/17 14:00 09/13/17 10:53 09/13/17 08:25 09/13/17 08:25 Oxygen Delivery Method Room Air Weight: 155.7 kg Body Mass Index (BMI) 53.7 Intake and Output for Last 24 Hours 09/11/17 09/12/17 09/13/17 23:59 23:59 23:59 Intake Total 3152 / 3152 Output Total 2240 / 2240 Balance 912 / 912 Laboratory Tests Past 24 Hrs 09/12/17 09/13/17 09/13/17 23:23 05:36 05:36 WBC 8.6 RBC 3.11 L Hgb 8.2 L Hct 26.1 L MCV 83.9 MCH 26.4 L MCHC 31.4 L RDW 14.8 H RDW Differential 43.8 Plt Count 275 MPV 9.2 Immature Gran % (Auto) 0.100 Neut % (Auto) 72.1 H Lymph % (Auto) 7.1 L Smyth % (Auto) 11.6 H Eos % (Auto) 8.6 H Baso % (Auto) 0.5 Absolute Neuts (auto) 6.2 Absolute Lymphs (auto) 0.61 L Total Counted Not Reportable Sodium 140 Potassium 5.5 H 5.4 H Chloride 109 H Carbon Dioxide 24.0 Anion Gap 7 BUN 79 H Creatinine 3.32 H Estim Creat Clear Calc 17.74 Est GFR (MDRD) Af Amer 18 L Est GFR (MDRD) Non-Af 15 L BUN/Creatinine Ratio 23.8 H Glucose 113 H Calcium 9.1 POC Glucose 09/13/17 11:38 POC Glucose 178 H Medical Necessity - Tobacco Use Smoking Status: Former smoker Assessment/Plan All Active Problems Cellulitis of right foot (Acute) Type 2 diabetes mellitus with diabetic polyneuropathy (Acute) Diabetic ulcer of right foot (Acute) MSSA (methicillin susceptible Staphylococcus aureus) (Resolved) Mycotic cystitis (Resolved) Osteomyelitis (Resolved) Osteomyelitis due to secondary diabetes (Resolved) Patient was carefully examined and evaluated bedside again this evening. Patient remains afebrile. Her WBC is down to 8.6 . ESR is 24 and CRP is 75.5 when checked evening. Wound cultures were taken and sent for aerobic, anaerobic, and mrsa pcr evaluation. MRSA pcr negative. Prelim wound cultures show gram negative galindo. Consider ID consult pending results. Blood cultures are still pending. Right foot x-rays taken and results were read as soft tissue swelling, no definite radiographic findings of osteomyelitis and no soft tissue emphysema. Possible MRI if needed. LEAS studies showed ARTI of 1.18 and triphasic DP and PT. Ulcer site was cleansed and then dressed with betadine to ulcer base, aquacel ag, 4x4s, ABDs, and kerlix. Patient already has padded offloading boot with her from her correction and this was applied. A pillow was placed under the patients ankle/calf in order to float the foot to keep pressure completely off of the ulcer site. Patient is to be non weight bearing to this foot with no pressure to the ulcer at all times. Podiatry will continue to follow while in house.
[2017-09-13 17:05] LABS: Bedside Glucose 120 mg/dL (70-110)
--- NOTE | 2017-09-13 17:21 | PCA ---
Took blood sugar for pts' nurse. Patient tolerated well.
--- NOTE | 2017-09-13 17:23 | PCM.PN.HOSP ---
Patient Problems: Active and Suspected Problems Cellulitis of right foot (Acute) Type 2 diabetes mellitus with diabetic polyneuropathy (Acute) Diabetic ulcer of right foot (Acute) Subjective: CC: Right diabetic foot infection. Objective: The patient denies any fever or chills , she denies pain in the right foot, acute events reported overnight. Vitals/I&O's: Vital Signs Temp Pulse Resp BP Pulse Ox 98.2 F 100 18 106/63 97 09/13/17 08:25 09/13/17 14:00 09/13/17 10:53 09/13/17 08:25 09/13/17 08:25 Oxygen Delivery Method Room Air Weight: 155.7 kg Body Mass Index (BMI) 53.7 Intake and Output for Last 24 Hours 09/11/17 09/12/17 09/13/17 23:59 23:59 23:59 Intake Total 3152 / 3152 Output Total 2240 / 2240 Balance 912 / 912 General: Alert, Oriented x3 HEENT: Atraumatic Neck: Supple Lungs: Clear to auscultation Cardiovascular: Regular rate, Normal S1 Abdomen: Bowel Sounds Present, Soft, Non Tender Musculoskeletal: - - s/p left BKA Laboratory Results 09/12/17 23:23: Potassium 5.5 H 09/13/17 05:36: WBC 8.6, RBC 3.11 L, Hgb 8.2 L, Hct 26.1 L, MCV 83.9, MCH 26.4 L, MCHC 31.4 L, RDW 14.8 H, RDW Differential 43.8, Plt Count 275, MPV 9.2, Immature Gran % (Auto) 0.100, Neut % (Auto) 72.1 H, Lymph % (Auto) 7.1 L, Schleicher % (Auto) 11.6 H, Eos % (Auto) 8.6 H, Baso % (Auto) 0.5, Absolute Neuts (auto) 6.2, Absolute Lymphs (auto) 0.61 L, Total Counted Not Reportable 09/13/17 05:36: Sodium 140, Potassium 5.4 H, Chloride 109 H, Carbon Dioxide 24.0, Anion Gap 7, BUN 79 H, Creatinine 3.32 H, Estim Creat Clear Calc 17.74, Est GFR (MDRD) Af Amer 18 L, Est GFR (MDRD) Non-Af 15 L, BUN/Creatinine Ratio 23.8 H, Glucose 113 H, Calcium 9.1 09/13/17 11:38: POC Glucose 178 H 09/13/17 17:02: POC Glucose 120 H Current Medications Acetaminophen (Tylenol) 650 mg PO Q6H PRN PRN PRN Reason: Mild Pain (scale 0-3)/T>100.7 Last Admin: 09/13/17 10:10 Dose: 650 mg Apixaban (Eliquis) 5 mg PO BID [facility] Bisacodyl (Dulcolax) 10 mg RECTAL DAILY PRN PRN PRN Reason: Constipation Cilostazol (Pletal) 50 mg PO BIDAC [facility] Last Admin: 09/13/17 06:27 Dose: 50 mg Cyclobenzaprine HCl (Flexeril) 10 mg PO QHS PRN PRN Reason: PAIN Ferrous Sulfate (Ferrous Sulfate) 325 mg PO BIDCM [facility] Last Admin: 09/13/17 08:15 Dose: 325 mg Hydroxyzine Pamoate (Vistaril Pamoate Capsule) 25 mg PO DAILY [facility] Last Admin: 09/13/17 10:01 Dose: 25 mg Hydroxyzine Pamoate (Vistaril Pamoate Capsule) 50 mg PO QHS [facility] Last Admin: 09/12/17 22:42 Dose: 50 mg Sodium Chloride () 1,000 mls @ 100 mls/hr IV .Q10H [facility] Last Admin: 09/13/17 10:00 Dose: 100 mls/hr Piperacillin Sod/Tazobactam Sod (Zosyn) 3.375 gm in 50 mls @ 12.5 mls/hr IV Q12 [facility] Last Admin: 09/13/17 10:00 Dose: 12.5 mls/hr Insulin Glargine (Lantus (Bkc)) 40 units SC QHS [facility] Last Admin: 09/12/17 22:38 Dose: 40 unit Insulin Glargine (Lantus (Bkc)) 55 units SC DAILY@0700 [facility] Insulin Human Lispro (Humalog Kwikpen (Bk)) 0 unit SQ ACHS [facility] PRN Reason: Protocol Last Admin: 09/13/17 11:41 Dose: 1 unit Magnesium Hydroxide (Milk Of Magnesia) 30 ml PO DAILY PRN PRN PRN Reason: Constipation Ondansetron HCl (Zofran) 4 mg IV Q8H PRN PRN PRN Reason: Nausea Pravastatin Sodium (Pravachol) 10 mg PO QHS [facility] Last Admin: 09/12/17 22:41 Dose: 10 mg Quetiapine Fumarate (Seroquel) 200 mg PO QHS [facility] Last Admin: 09/12/17 22:41 Dose: 200 mg Sodium Chloride () 5 - 30 ml IV UD PRN PRN Reason: SALINE FLUSH Venlafaxine HCl (Effexor Xr) 225 mg PO DAILY [facility] Last Admin: 09/13/17 10:10 Dose: 225 mg Medical Necessity - Tobacco Use Smoking Status: Former smoker Assessment/Plan All Active Problems Cellulitis of right foot (Acute) Type 2 diabetes mellitus with diabetic polyneuropathy (Acute) Diabetic ulcer of right foot (Acute) MSSA (methicillin susceptible Staphylococcus aureus) (Resolved) Mycotic cystitis (Resolved) Osteomyelitis (Resolved) 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 infected right foot ulcer/cellulitis; podiatry consulted to wound culture taken, will continue on IV vancomycin and Zosyn 2 . FARIDEH on stage III CKD; will monitor renal parameters closely and avoid potential nephrotoxic medications. 3 mild hyperkalemia; lisinopril has been discontinued, will repeat renal parameters in a.m. 4 type 2 diabetes mellitus; continue regular insulin sliding scale and Lantus. 5 hypertension; continue current medications. 6. Left BKA; secondary to left diabetic foot and leg infection 7. Chronic anticoagulation with no clear indication wound to obtain records from the detention and her PCP. 8. DVT prophylaxis; she is on Eliquis Code Visit Inpatient E&M: [id number] [facility] L3
--- NOTE | 2017-09-13 17:26 | PN_ITS ---
Patient Problems: Active and Suspected Problems Cellulitis of right foot (Acute) Type 2 diabetes mellitus with diabetic polyneuropathy (Acute) Diabetic ulcer of right foot (Acute) Subjective: CC: Right diabetic foot infection. Objective: The patient denies any fever or chills , she denies pain in the right foot, acute events reported overnight. Vitals/I&O's: Vital Signs Temp Pulse Resp BP Pulse Ox 98.2 F 100 18 106/63 97 09/13/17 08:25 09/13/17 14:00 09/13/17 10:53 09/13/17 08:25 09/13/17 08:25 Oxygen Delivery Method Room Air Weight: 155.7 kg Body Mass Index (BMI) 53.7 Intake and Output for Last 24 Hours 09/11/17 09/12/17 09/13/17 23:59 23:59 23:59 Intake Total 3152 / 3152 Output Total 2240 / 2240 Balance 912 / 912 General: Alert, Oriented x3 HEENT: Atraumatic Neck: Supple Lungs: Clear to auscultation Cardiovascular: Regular rate, Normal S1 Abdomen: Bowel Sounds Present, Soft, Non Tender Musculoskeletal: - - s/p left BKA Laboratory Results 09/12/17 23:23: Potassium 5.5 H 09/13/17 05:36: WBC 8.6, RBC 3.11 L, Hgb 8.2 L, Hct 26.1 L, MCV 83.9, MCH 26.4 L , MCHC 31.4 L, RDW 14.8 H, RDW Differential 43.8, Plt Count 275, MPV 9.2, Immature Gran % (Auto) 0.100, Neut % (Auto) 72.1 H, Lymph % (Auto) 7.1 L, Jewell % (Auto) 11.6 H, Eos % (Auto) 8.6 H, Baso % (Auto) 0.5, Absolute Neuts (auto) 6.2, Absolute Lymphs (auto) 0.61 L, Total Counted Not Reportable 09/13/17 05:36: Sodium 140, Potassium 5.4 H, Chloride 109 H, Carbon Dioxide 24.0 , Anion Gap 7, BUN 79 H, Creatinine 3.32 H, Estim Creat Clear Calc 17.74, Est GFR (MDRD) Af Amer 18 L, Est GFR (MDRD) Non-Af 15 L, BUN/Creatinine Ratio 23.8 H , Glucose 113 H, Calcium 9.1 09/13/17 11:38: POC Glucose 178 H 09/13/17 17:02: POC Glucose 120 H Current Medications Acetaminophen (Tylenol) 650 mg PO Q6H PRN PRN PRN Reason: Mild Pain (scale 0-3)/T>100.7 Last Admin: 09/13/17 10:10 Dose: 650 mg Apixaban (Eliquis) 5 mg PO BID [facility] Bisacodyl (Dulcolax) 10 mg RECTAL DAILY PRN PRN PRN Reason: Constipation Cilostazol (Pletal) 50 mg PO BIDAC [facility] Last Admin: 09/13/17 06:27 Dose: 50 mg Cyclobenzaprine HCl (Flexeril) 10 mg PO QHS PRN PRN Reason: PAIN Ferrous Sulfate (Ferrous Sulfate) 325 mg PO BIDCM [facility] Last Admin: 09/13/17 08:15 Dose: 325 mg Hydroxyzine Pamoate (Vistaril Pamoate Capsule) 25 mg PO DAILY [facility] Last Admin: 09/13/17 10:01 Dose: 25 mg Hydroxyzine Pamoate (Vistaril Pamoate Capsule) 50 mg PO QHS [facility] Last Admin: 09/12/17 22:42 Dose: 50 mg Sodium Chloride () 1,000 mls @ 100 mls/hr IV .Q10H [facility] Last Admin: 09/13/17 10:00 Dose: 100 mls/hr Piperacillin Sod/Tazobactam Sod (Zosyn) 3.375 gm in 50 mls @ 12.5 mls/hr IV Q12 [facility] Last Admin: 09/13/17 10:00 Dose: 12.5 mls/hr Insulin Glargine (Lantus (Bkc)) 40 units SC QHS [facility] Last Admin: 09/12/17 22:38 Dose: 40 unit Insulin Glargine (Lantus (Bkc)) 55 units SC DAILY@0700 [facility] Insulin Human Lispro (Humalog Kwikpen (Bk)) 0 unit SQ ACHS [facility] PRN Reason: Protocol Last Admin: 09/13/17 11:41 Dose: 1 unit Magnesium Hydroxide (Milk Of Magnesia) 30 ml PO DAILY PRN PRN PRN Reason: Constipation Ondansetron HCl (Zofran) 4 mg IV Q8H PRN PRN PRN Reason: Nausea Pravastatin Sodium (Pravachol) 10 mg PO QHS [facility] Last Admin: 09/12/17 22:41 Dose: 10 mg Quetiapine Fumarate (Seroquel) 200 mg PO QHS [facility] Last Admin: 09/12/17 22:41 Dose: 200 mg Sodium Chloride () 5 - 30 ml IV UD PRN PRN Reason: SALINE FLUSH Venlafaxine HCl (Effexor Xr) 225 mg PO DAILY [facility] Last Admin: 09/13/17 10:10 Dose: 225 mg Medical Necessity - Tobacco Use Smoking Status: Former smoker Assessment/Plan All Active Problems Cellulitis of right foot (Acute) Type 2 diabetes mellitus with diabetic polyneuropathy (Acute) Diabetic ulcer of right foot (Acute) MSSA (methicillin susceptible Staphylococcus aureus) (Resolved) Mycotic cystitis (Resolved) Osteomyelitis (Resolved) 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 infected right foot ulcer/cellulitis; podiatry consulted to wound culture taken, will continue on IV vancomycin and Zosyn 2 . FARIDEH on stage III CKD; will monitor renal parameters closely and avoid potential nephrotoxic medications. 3 mild hyperkalemia; lisinopril has been discontinued, will repeat renal parameters in a.m. 4 type 2 diabetes mellitus; continue regular insulin sliding scale and Lantus. 5 hypertension; continue current medications. 6. Left BKA; secondary to left diabetic foot and leg infection 7. Chronic anticoagulation with no clear indication wound to obtain records from the skilled nursing and her PCP. 8. DVT prophylaxis; she is on Eliquis Code Visit Inpatient E&M: [id number] [facility] L3
--- NOTE | 2017-09-13 20:37 | LEAS ---
Arterial Study - Arterial Study Arterial Study: Right lower extremity noninvasive arterial exam at rest Patient with a right foot ulceration Right PT and DP ankle-brachial indices at rest are 1.05 and 1.18 respectively. The right posterior tibial and dorsalis pedis Doppler waveforms are triphasic. Volume pulse recordings of the calf and ankle appear to be maintained. Thigh cuff could not be applied secondary to patient body habitus Patient with a history of a left below-knee amputation Impression Normal right lower extremity resting indices and waveforms ankle-brachial Doppler waveforms Rigo Edwards M.D., F.A.C.S.
[2017-09-13] MEDS: APIXABAN 5 MG TABLET PO (22:42)
[2017-09-13] MEDS: Menthol/Lanolin/Calamine/Znox 113 GM Tube 1 APPLIC TOPICAL (22:42)
[2017-09-13] MEDS: hydrOXYzine PAM 25 MG Capsule 50 MG PO (22:44)
[2017-09-13] MEDS: Pravastatin 20 MG Tablet 10 MG PO (22:44)
[2017-09-13] MEDS: QUEtiapine 100 MG Tablet 200 MG PO (22:45)
[2017-09-13 23:00] LABS: Bedside Glucose 163 mg/dL (70-110)
[2017-09-14] VITALS (7 sets, daily range): BP systolic 96–136; BP diastolic 58–80; PULSE 80–98; RESP 16–18; TEMP 36.4–37; O2SAT 93–99
[2017-09-14] MEDS: 0.9% Normal Saline 1,000 ML 100 ML IV ×3 (00:06→21:12)
[2017-09-14 08:34] LABS: Vancomycin, Random Level 14.5 ug/mL (0.0-15.0)
--- NOTE | 2017-09-14 08:45 | NURSING ---
pt requesting to have medications with breakfast- has not been delivered to patient yet. Will administer medications later with breakfast per pt request.
[2017-09-14] MEDS: Cilostazol 50 MG Tablet PO ×2 (10:15→16:49)
[2017-09-14] MEDS: Venlafaxine XR 75 MG Capsule 225 MG PO (10:15)
[2017-09-14] MEDS: Ferrous Sulfate 325 MG Tablet PO ×2 (10:15→18:38)
[2017-09-14] MEDS: hydrOXYzine PAM 25 MG Capsule PO (10:15)
[2017-09-14] MEDS: APIXABAN 5 MG TABLET PO ×2 (10:15→21:12)
[2017-09-14] MEDS: Menthol/Lanolin/Calamine/Znox 113 GM Tube 1 APPLIC TOPICAL ×3 (10:15→21:16)
[2017-09-14] MEDS: Piperacil/Tazobactam 3.375 GM/50 ML ML IV ×2 (10:26→22:30)
[2017-09-14 11:01] LABS: Bedside Glucose 107 mg/dL (70-110)
--- NOTE | 2017-09-14 11:34 | PCM.PROGNOTE ---
Patient Problems: Active and Suspected Problems Cellulitis of right foot (Acute) Type 2 diabetes mellitus with diabetic polyneuropathy (Acute) Diabetic ulcer of right foot (Acute) Subjective: Patient was seen again today resting comfortably in bed for right lateral foot ulcer. She again relates no issues over the evening. She says she still feels well and has had no complications. She was able to keep her dressing intact better this last evening. She continues to deny any feelings of nausea, vomiting, fever, chills, or shortness of breath. - Physical Exam General: Alert, Oriented x3, Cooperative, No apparent distress Extremities: Capillary Refill Less than 3 Seconds - to distal remaining digits of right foot, No Calf Tenderness - negative papa and sanchez sign, Diminished Peripheral Pulses - on palpation, Edema - lower extremity edema noted Skin: Ulcer/ Wound - Ulcer appreciated to right lateral foot with fat layer exposed. The ulcer measures approx 2cm x 2cm. The base is mixture of fibrous and granular tissue with some surrounding hyperkeratotic tissue as well. Slight amount of adherent slough noted. Fibrotic plug to center. Ulcer continues to dry up with betadine application. There is no purulence appreciated. Scant amount of serosanguinous drainage to bandage, but not appreciated to ulcer. There is some surrounding erythema/cellulitis that is outlined, this has slightly decresed since yesterday again and is less intense in color as well. No significant increase in warmth appreciated to the area. Patient denies any pain. Musculoskeletal: - - Left BKA. Inverted right foot. Previous right hallux amp as well as partial right 2nd and 3rd toe amputations. No tenderness to ulcer site due to neuropathy Neurological: - - epicritic sensation grossly absent to right lower extremity. Psych/Mental Status: Normal Affect, Appropriate Vital Signs Temp Pulse Resp BP Pulse Ox 98.2 F 81 16 96/63 99 09/14/17 08:28 09/14/17 08:28 09/14/17 08:28 09/14/17 08:28 09/14/17 08:28 Oxygen Delivery Method Room Air Weight: 155.7 kg Body Mass Index (BMI) 53.7 Intake and Output for Last 24 Hours 09/12/17 09/13/17 09/14/17 23:59 23:59 23:59 Intake Total 4152 / 4152 1590 / 1590 Output Total 2590 / 2590 1410 / 1410 Balance 1562 / 1562 180 / 180 Laboratory Tests Past 24 Hrs 09/14/17 07:32 Random Vancomycin 14.5 POC Glucose 09/14/17 09/13/17 09/13/17 10:53 22:33 17:02 POC Glucose 107 163 H 120 H 09/13/17 11:38 POC Glucose 178 H Medical Necessity - Tobacco Use Smoking Status: Former smoker Assessment/Plan All Active Problems Cellulitis of right foot (Acute) Type 2 diabetes mellitus with diabetic polyneuropathy (Acute) Diabetic ulcer of right foot (Acute) MSSA (methicillin susceptible Staphylococcus aureus) (Resolved) Mycotic cystitis (Resolved) Osteomyelitis (Resolved) Osteomyelitis due to secondary diabetes (Resolved) Ulcer with fat layer exposed to right lateral foot Cellulitis right foot-improving DM with neuropathy Patient was carefully examined and evaluated bedside again this evening. Patient remains afebrile. Her WBC is down to 8.6 yesterday . ESR is 24 and CRP is 75.5 when checked evening. Wound cultures were taken and sent for aerobic, anaerobic, and mrsa pcr evaluation. MRSA pcr negative. Prelim wound cultures show gram negative galindo, staph aureus, and possible enterococcus. Consider ID consult pending results. Blood cultures are still pending. Right foot x-rays taken and results were read as soft tissue swelling, no definite radiographic findings of osteomyelitis and no soft tissue emphysema. Possible MRI if needed. LEAS studies showed ARTI of 1.18 and triphasic DP and PT. Ulcer site was cleansed and then dressed with betadine to ulcer base, aquacel ag, 4x4s, ABDs, and kerlix. Patient already has padded offloading boot with her from her [place] [facility] and this was applied. A pillow was placed under the patients ankle/calf in order to float the foot to keep pressure completely off of the ulcer site. Patient is to be non weight bearing to this foot with no pressure to the ulcer at all times. If patient is discharged, she can return to her wound care doctor at her [place] [facility] who sees her weekly. She is also free to see our wound healing center as well if she prefers. Podiatry will continue to follow while in house.
--- NOTE | 2017-09-14 11:45 | PN_ITS ---
Patient Problems: Active and Suspected Problems Cellulitis of right foot (Acute) Type 2 diabetes mellitus with diabetic polyneuropathy (Acute) Diabetic ulcer of right foot (Acute) Subjective: Patient was seen again today resting comfortably in bed for right lateral foot ulcer. She again relates no issues over the evening. She says she still feels well and has had no complications. She was able to keep her dressing intact better this last evening. She continues to deny any feelings of nausea, vomiting , fever, chills, or shortness of breath. - Physical Exam General: Alert, Oriented x3, Cooperative, No apparent distress Extremities: Capillary Refill Less than 3 Seconds - to distal remaining digits of right foot, No Calf Tenderness - negative papa and sanchez sign, Diminished Peripheral Pulses - on palpation, Edema - lower extremity edema noted Skin: Ulcer/ Wound - Ulcer appreciated to right lateral foot with fat layer exposed. The ulcer measures approx 2cm x 2cm. The base is mixture of fibrous and granular tissue with some surrounding hyperkeratotic tissue as well. Slight amount of adherent slough noted. Fibrotic plug to center. Ulcer continues to dry up with betadine application. There is no purulence appreciated. Scant amount of serosanguinous drainage to bandage, but not appreciated to ulcer. There is some surrounding erythema/cellulitis that is outlined, this has slightly decresed since yesterday again and is less intense in color as well. No significant increase in warmth appreciated to the area. Patient denies any pain. Musculoskeletal: - - Left BKA. Inverted right foot. Previous right hallux amp as well as partial right 2nd and 3rd toe amputations. No tenderness to ulcer site due to neuropathy Neurological: - - epicritic sensation grossly absent to right lower extremity. Psych/Mental Status: Normal Affect, Appropriate Vital Signs Temp Pulse Resp BP Pulse Ox 98.2 F 81 16 96/63 99 09/14/17 08:28 09/14/17 08:28 09/14/17 08:28 09/14/17 08:28 09/14/17 08:28 Oxygen Delivery Method Room Air Weight: 155.7 kg Body Mass Index (BMI) 53.7 Intake and Output for Last 24 Hours 09/12/17 09/13/17 09/14/17 23:59 23:59 23:59 Intake Total 4152 / 4152 1590 / 1590 Output Total 2590 / 2590 1410 / 1410 Balance 1562 / 1562 180 / 180 Laboratory Tests Past 24 Hrs 09/14/17 07:32 Random Vancomycin 14.5 POC Glucose 09/14/17 09/13/17 09/13/17 10:53 22:33 17:02 POC Glucose 107 163 H 120 H 09/13/17 11:38 POC Glucose 178 H Medical Necessity - Tobacco Use Smoking Status: Former smoker Assessment/Plan All Active Problems Cellulitis of right foot (Acute) Type 2 diabetes mellitus with diabetic polyneuropathy (Acute) Diabetic ulcer of right foot (Acute) MSSA (methicillin susceptible Staphylococcus aureus) (Resolved) Mycotic cystitis (Resolved) Osteomyelitis (Resolved) Osteomyelitis due to secondary diabetes (Resolved) Ulcer with fat layer exposed to right lateral foot Cellulitis right foot-improving DM with neuropathy Patient was carefully examined and evaluated bedside again this evening. Patient remains afebrile. Her WBC is down to 8.6 yesterday . ESR is 24 and CRP is 75.5 when checked evening. Wound cultures were taken and sent for aerobic, anaerobic, and mrsa pcr evaluation. MRSA pcr negative. Prelim wound cultures show gram negative galindo, staph aureus, and possible enterococcus. Consider ID consult pending results. Blood cultures are still pending. Right foot x-rays taken and results were read as soft tissue swelling, no definite radiographic findings of osteomyelitis and no soft tissue emphysema. Possible MRI if needed. LEAS studies showed ARTI of 1.18 and triphasic DP and PT. Ulcer site was cleansed and then dressed with betadine to ulcer base, aquacel ag, 4x4s , ABDs, and kerlix. Patient already has padded offloading boot with her from her detention and this was applied. A pillow was placed under the patients ankle/calf in order to float the foot to keep pressure completely off of the ulcer site. Patient is to be non weight bearing to this foot with no pressure to the ulcer at all times. If patient is discharged, she can return to her wound care doctor at her [facility] who sees her weekly. She is also free to see our wound healing center as well if she prefers. Podiatry will continue to follow while in house.
--- NOTE | 2017-09-14 11:47 | NURSING ---
pt washed up this morning- refusing telemetry- states she doesn't have anything wrong with her heart. doctor to be notified.
--- NOTE | 2017-09-14 13:51 | PCM.PN.HOSP ---
Patient Problems: Active and Suspected Problems Cellulitis of right foot (Acute) Type 2 diabetes mellitus with diabetic polyneuropathy (Acute) Diabetic ulcer of right foot (Acute) Subjective: CC: Right diabetic foot infection. Objective: The patient denies any fever or chills , she denies pain in the right foot, acute events reported overnight. Vitals/I&O's: Vital Signs Temp Pulse Resp BP Pulse Ox 98.2 F 81 16 96/63 99 09/14/17 08:28 09/14/17 08:28 09/14/17 08:28 09/14/17 08:28 09/14/17 08:28 Oxygen Delivery Method Room Air Weight: 155.7 kg Body Mass Index (BMI) 53.7 Intake and Output for Last 24 Hours 09/12/17 09/13/17 09/14/17 23:59 23:59 23:59 Intake Total 4152 / 4152 2411 / 2411 Output Total 2590 / 2590 1860 / 1860 Balance 1562 / 1562 551 / 551 General: Alert, Oriented x3 HEENT: Atraumatic Oral: Moist Mucosa Neck: Supple Lungs: Clear to auscultation Cardiovascular: Regular rate, Normal S1 Extremities: No edema Neurological: Cranial nerves II-XII grossly intact, Motor Exam 5/5 strength throughout Laboratory Results 09/13/17 17:02: POC Glucose 120 H 09/13/17 22:33: POC Glucose 163 H 09/14/17 07:32: Random Vancomycin 14.5 09/14/17 10:53: POC Glucose 107 Current Medications Acetaminophen (Tylenol) 650 mg PO Q6H PRN PRN PRN Reason: Mild Pain (scale 0-3)/T>100.7 Last Admin: 09/13/17 10:10 Dose: 650 mg Apixaban (Eliquis) 5 mg PO BID [facility] Last Admin: 09/14/17 10:15 Dose: 5 mg Bisacodyl (Dulcolax) 10 mg RECTAL DAILY PRN PRN PRN Reason: Constipation Calamine/Phenol (Calmoseptine Ointment) 1 applic TOPICAL 4X/DAY [facility] PRN Reason: Protocol Last Admin: 09/14/17 10:15 Dose: 1 applicatio [facility] Admin: 06/16/18 10:15 Dose: 50 mg Cyclobenzaprine HCl (Flexeril) 10 mg PO QHS PRN PRN Reason: PAIN Ferrous Sulfate (Ferrous Sulfate) 325 mg PO BIDCM [facility] Last Admin: 09/14/17 10:15 Dose: 325 mg Hydroxyzine Pamoate (Vistaril Pamoate Capsule) 25 mg PO DAILY [facility] Last Admin: 09/14/17 10:15 Dose: 25 mg Hydroxyzine Pamoate (Vistaril Pamoate Capsule) 50 mg PO QHS [facility] Last Admin: 09/13/17 22:44 Dose: 50 mg Sodium Chloride () 1,000 mls @ 100 mls/hr IV .Q10H [facility] Last Admin: 09/14/17 10:26 Dose: 100 mls/hr Piperacillin Sod/Tazobactam Sod (Zosyn) 3.375 gm in 50 mls @ 12.5 mls/hr IV Q12 [facility] Last Admin: 09/14/17 10:26 Dose: 12.5 mls/hr Vancomycin HCl 2,000 mg/ (Sodium Chloride) 540 mls @ 260 mls/hr IV X1 ONE Stop: 09/14/17 23:04 Insulin Glargine (Lantus (Bkc)) 40 units SC QHS [facility] Last Admin: 09/13/17 22:43 Dose: 40 unit Insulin Glargine (Lantus (Bkc)) 55 units SC DAILY@0700 [facility] Last Admin: 09/14/17 10:16 Dose: 55 units Insulin Human Lispro (Humalog Kwikpen (Bkc)) 0 unit SQ ACHS [facility] PRN Reason: Protocol Last Admin: 09/14/17 10:54 Dose: Not Given Magnesium Hydroxide (Milk Of Magnesia) 30 ml PO DAILY PRN PRN PRN Reason: Constipation Ondansetron HCl (Zofran) 4 mg IV Q8H PRN PRN PRN Reason: Nausea Pravastatin Sodium (Pravachol) 10 mg PO QHS [facility] Last Admin: 09/13/17 22:44 Dose: 10 mg Quetiapine Fumarate (Seroquel) 200 mg PO QHS [facility] Last Admin: 09/13/17 22:45 Dose: 200 mg Sodium Chloride () 5 - 30 ml IV UD PRN PRN Reason: SALINE FLUSH Venlafaxine HCl (Effexor Xr) 225 mg PO DAILY [facility] Last Admin: 09/14/17 10:15 Dose: 225 mg Medical Necessity - Tobacco Use Smoking Status: Former smoker Assessment/Plan All Active Problems Cellulitis of right foot (Acute) Type 2 diabetes mellitus with diabetic polyneuropathy (Acute) Diabetic ulcer of right foot (Acute) MSSA (methicillin susceptible Staphylococcus aureus) (Resolved) Mycotic cystitis (Resolved) Osteomyelitis (Resolved) 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 infected right foot ulcer/cellulitis; wound culture growing negative rods, staph aureus and possible enterococcus will continue on IV vancomycin and Zosyn until final organisms identification is available. 2 . FARIDEH on stage III CKD; will monitor renal parameters closely and avoid potential nephrotoxic medications. 3 mild hyperkalemia; lisinopril has been discontinued, will repeat renal parameters in a.m. 4 type 2 diabetes mellitus; continue regular insulin sliding scale and Lantus. 5 hypertension; continue current medications. 6. Left BKA; secondary to left diabetic foot and leg infection 7. Chronic anticoagulation with no clear indication wound to obtain records from the sn[facility] and her PCP. 8. DVT prophylaxis; she is on Eliquis
--- NOTE | 2017-09-14 13:54 | PN_ITS ---
Patient Problems: Active and Suspected Problems Cellulitis of right foot (Acute) Type 2 diabetes mellitus with diabetic polyneuropathy (Acute) Diabetic ulcer of right foot (Acute) Subjective: CC: Right diabetic foot infection. Objective: The patient denies any fever or chills , she denies pain in the right foot, acute events reported overnight. Vitals/I&O's: Vital Signs Temp Pulse Resp BP Pulse Ox 98.2 F 81 16 96/63 99 09/14/17 08:28 09/14/17 08:28 09/14/17 08:28 09/14/17 08:28 09/14/17 08:28 Oxygen Delivery Method Room Air Weight: 155.7 kg Body Mass Index (BMI) 53.7 Intake and Output for Last 24 Hours 09/12/17 09/13/17 09/14/17 23:59 23:59 23:59 Intake Total 4152 / 4152 2411 / 2411 Output Total 2590 / 2590 1860 / 1860 Balance 1562 / 1562 551 / 551 General: Alert, Oriented x3 HEENT: Atraumatic Oral: Moist Mucosa Neck: Supple Lungs: Clear to auscultation Cardiovascular: Regular rate, Normal S1 Extremities: No edema Neurological: Cranial nerves II-XII grossly intact, Motor Exam 5/5 strength throughout Laboratory Results 09/13/17 17:02: POC Glucose 120 H 09/13/17 22:33: POC Glucose 163 H 09/14/17 07:32: Random Vancomycin 14.5 09/14/17 10:53: POC Glucose 107 Current Medications Acetaminophen (Tylenol) 650 mg PO Q6H PRN PRN PRN Reason: Mild Pain (scale 0-3)/T>100.7 Last Admin: 09/13/17 10:10 Dose: 650 mg Apixaban (Eliquis) 5 mg PO BID [facility] Last Admin: 09/14/17 10:15 Dose: 5 mg Bisacodyl (Dulcolax) 10 mg RECTAL DAILY PRN PRN PRN Reason: Constipation Calamine/Phenol (Calmoseptine Ointment) 1 applic TOPICAL 4X/DAY [facility] PRN Reason: Protocol Last Admin: 09/14/17 10:15 Dose: 1 applicatio [facility] Last Admin: 06/16/18 10:15 Dose: 50 mg Cyclobenzaprine HCl (Flexeril) 10 mg PO QHS PRN PRN Reason: PAIN Ferrous Sulfate (Ferrous Sulfate) 325 mg PO BIDCM [facility] Last Admin: 09/14/17 10:15 Dose: 325 mg Hydroxyzine Pamoate (Vistaril Pamoate Capsule) 25 mg PO DAILY [facility] Last Admin: 09/14/17 10:15 Dose: 25 mg Hydroxyzine Pamoate (Vistaril Pamoate Capsule) 50 mg PO QHS [facility] Last Admin: 09/13/17 22:44 Dose: 50 mg Sodium Chloride () 1,000 mls @ 100 mls/hr IV .Q10H [facility] Last Admin: 09/14/17 10:26 Dose: 100 mls/hr Piperacillin Sod/Tazobactam Sod (Zosyn) 3.375 gm in 50 mls @ 12.5 mls/hr IV Q12 [facility] Last Admin: 09/14/17 10:26 Dose: 12.5 mls/hr Vancomycin HCl 2,000 mg/ (Sodium Chloride) 540 mls @ 260 mls/hr IV X1 ONE Stop: 09/14/17 23:04 Insulin Glargine (Lantus (Bkc)) 40 units SC QHS [facility] Last Admin: 09/13/17 22:43 Dose: 40 unit Insulin Glargine (Lantus (Bkc)) 55 units SC DAILY@0700 [facility] Last Admin: 09/14/17 10:16 Dose: 55 units Insulin Human Lispro (Humalog Kwikpen (Bkc)) 0 unit SQ ACHS [facility] PRN Reason: Protocol Last Admin: 09/14/17 10:54 Dose: Not Given Magnesium Hydroxide (Milk Of Magnesia) 30 ml PO DAILY PRN PRN PRN Reason: Constipation Ondansetron HCl (Zofran) 4 mg IV Q8H PRN PRN PRN Reason: Nausea Pravastatin Sodium (Pravachol) 10 mg PO QHS [facility] Last Admin: 09/13/17 22:44 Dose: 10 mg Quetiapine Fumarate (Seroquel) 200 mg PO QHS [facility] Last Admin: 09/13/17 22:45 Dose: 200 mg Sodium Chloride () 5 - 30 ml IV UD PRN PRN Reason: SALINE FLUSH Venlafaxine HCl (Effexor Xr) 225 mg PO DAILY [facility] Last Admin: 09/14/17 10:15 Dose: 225 mg Medical Necessity - Tobacco Use Smoking Status: Former smoker Assessment/Plan All Active Problems Cellulitis of right foot (Acute) Type 2 diabetes mellitus with diabetic polyneuropathy (Acute) Diabetic ulcer of right foot (Acute) MSSA (methicillin susceptible Staphylococcus aureus) (Resolved) Mycotic cystitis (Resolved) Osteomyelitis (Resolved) 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 infected right foot ulcer/cellulitis; wound culture growing negative rods, staph aureus and possible enterococcus will continue on IV vancomycin and Zosyn until final organisms identification is available. 2 . FARIDEH on stage III CKD; will monitor renal parameters closely and avoid potential nephrotoxic medications. 3 mild hyperkalemia; lisinopril has been discontinued, will repeat renal parameters in a.m. 4 type 2 diabetes mellitus; continue regular insulin sliding scale and Lantus. 5 hypertension; continue current medications. 6. Left BKA; secondary to left diabetic foot and leg infection 7. Chronic anticoagulation with no clear indication wound to obtain records from the shelter and her PCP. 8. DVT prophylaxis; she is on Eliquis
--- NOTE | 2017-09-14 14:00 | PCM.RX.CS ---
Consult Pharmacy has been consulted to manage selected antiobiotic: Vancomycin Type of Consult: Follow-up Suspected Infection: Skin/Soft tissue Prior Doses of Antibiotics Received/Current Regimen: Patient received vancomycin 2gm iv x 1 on 09.12.17 @2099. Random level this AM 09.14.17 was 14.5 and within goal range (10-15mcg/ml) Renal function remains about same, Cr 3.3 with CrCl ~18. Will give vancomycin 2gm iv x 1 tonite at 2099 with recheck of random level 48hrs post dose. Review of random level and renal function will be done at that time with determination of further dosing. Labs: Sodium 140 mmol/L (136-145) 09/13/17 05:36 Potassium 5.4 mmol/L (3.5-5.1) H 09/13/17 05:36 Chloride 109 mmol/L (98-107) H 09/13/17 05:36 Carbon Dioxide 24.0 mmol/L (21.0-32.0) 09/13/17 05:36 Anion Gap 7 (5-15) 09/13/17 05:36 BUN 79 mg/dL (7-18) H 09/13/17 05:36 Creatinine 3.32 mg/dL (0.55-1.02) H 09/13/17 05:36 Est GFR (MDRD) Af Amer 18 mL/min (>60) L 09/13/17 05:36 Est GFR (MDRD) Non-Af 15 mL/min (>60) L 09/13/17 05:36 BUN/Creatinine Ratio 23.8 RATIO (10-20) H 09/13/17 05:36 Glucose 113 mg/dL (74-106) H 09/13/17 05:36 Random Vancomycin 14.5 ug/mL (0.0-15.0) 09/14/17 07:32 Weight used for dosin.7 kg Estimated Creatinine Clearance: 18ml/min Goal Trough: 10-15 mcg/mL Pharmacy Plan for Drug Dosing: Pharmacy Service will continue to monitor and adjust dosing as required. Follow-Up Labs: Trough Vancomycin - random level @[id number]
[2017-09-14 16:35] LABS: Bedside Glucose 73 mg/dL (70-110)
[2017-09-14] MEDS: Insulin Lispro 100 UNIT/ML INSULN.PEN SQ (16:48)
[2017-09-14 16:56] LABS: Bedside Glucose 152 mg/dL (70-110)
[2017-09-14] MEDS: Acetaminophen 325 MG Tablet 650 MG PO (21:02)
[2017-09-14] MEDS: QUEtiapine 100 MG Tablet 200 MG PO (21:10)
[2017-09-14] MEDS: hydrOXYzine PAM 25 MG Capsule 50 MG PO (21:11)
[2017-09-14] MEDS: Pravastatin 20 MG Tablet 10 MG PO (21:11)
[2017-09-14 21:26] LABS: Bedside Glucose 144 mg/dL (70-110)
[2017-09-15 02:00] VITALS: BP 92/51; PULSE 86; RESP 16; TEMP 36.4; O2SAT 94
[2017-09-15 06:29] VITALS: BP 93/53
[2017-09-15 06:35] LABS: Bedside Glucose 72 mg/dL (70-110)
[2017-09-15 07:55] VITALS: BP 92/57; PULSE 86; RESP 18; TEMP 36.5; O2SAT 95; O2SAT 98
[2017-09-15] MEDS: Cilostazol 50 MG Tablet PO ×2 (08:06→16:10)
[2017-09-15] MEDS: Ferrous Sulfate 325 MG Tablet PO ×2 (10:12→16:16)
[2017-09-15] MEDS: Menthol/Lanolin/Calamine/Znox 113 GM Tube 1 APPLIC TOPICAL ×3 (10:13→22:40)
[2017-09-15] MEDS: APIXABAN 5 MG TABLET PO ×2 (10:14→22:36)
[2017-09-15] MEDS: Piperacil/Tazobactam 3.375 GM/50 ML ML IV ×2 (10:14→22:34)
[2017-09-15] MEDS: hydrOXYzine PAM 25 MG Capsule PO (10:14)
[2017-09-15] MEDS: 0.9% Normal Saline 1,000 ML 100 ML IV (10:15)
--- NOTE | 2017-09-15 12:06 | PCM.PROGNOTE ---
Patient Problems: Active and Suspected Problems Cellulitis of right foot (Acute) Type 2 diabetes mellitus with diabetic polyneuropathy (Acute) Diabetic ulcer of right foot (Acute) Subjective: Patient was seen again today resting comfortably in bed for right lateral foot ulcer. Patient did well throughout the evening again. She says she still feels well and has had no complications again today. She continues to deny any feelings of nausea, vomiting, fever, chills, or shortness of breath. - Physical Exam General: Alert, Oriented x3, Cooperative, No apparent distress Extremities: Capillary Refill Less than 3 Seconds - to remaining distal digits of right foot, No Calf Tenderness, Diminished Peripheral Pulses, Edema - lower extremity edema Skin: Ulcer/ Wound - Ulcer appreciated to right lateral foot with fat layer exposed. The ulcer measures approx 2cm x 2cm. The base is mixture of fibrous and granular tissue. Slight amount of adherent slough noted. Fibrotic plug to center. Ulcer continues to dry up with betadine application. There is no purulence appreciated. Scant amount of serosanguinous drainage to bandage, but not appreciated to ulcer. Erythema continues to decrease in area and intensity. No significant increase in warmth appreciated to the area. Patient denies any pain. Musculoskeletal: - - Left BKA. Inverted right foot. Previous right hallux amp as well as partial right 2nd and 3rd toe amputations. No tenderness to ulcer site due to neuropathy Neurological: - - Epicritic sensation grossly absent right lower extremity Psych/Mental Status: Normal Affect, Appropriate Vital Signs Temp Pulse Resp BP Pulse Ox 97.7 F L 86 18 92/57 L 95 09/15/17 07:55 09/15/17 07:55 09/15/17 07:55 09/15/17 07:55 09/15/17 07:55 Oxygen Delivery Method Room Air Weight: 155.7 kg Body Mass Index (BMI) 53.7 Intake and Output for Last 24 Hours 09/13/17 09/14/17 09/15/17 23:59 23:59 23:59 Intake Total 4152 / 4152 2911 / 2911 3129 / 3129 Output Total 2590 / 2590 2460 / 2460 1400 / 1400 Balance 1562 / 1562 451 / 451 1729 / 1729 POC Glucose 09/15/17 09/14/17 09/14/17 06:26 21:15 16:45 POC Glucose 72 144 H 152 H 09/14/17 08:43 POC Glucose 73 Medical Necessity - Tobacco Use Smoking Status: Former smoker Assessment/Plan All Active Problems Cellulitis of right foot (Acute) Type 2 diabetes mellitus with diabetic polyneuropathy (Acute) Diabetic ulcer of right foot (Acute) MSSA (methicillin susceptible Staphylococcus aureus) (Resolved) Mycotic cystitis (Resolved) Osteomyelitis (Resolved) Osteomyelitis due to secondary diabetes (Resolved) Ulcer with fat layer exposed to right lateral foot Cellulitis right foot-improving DM with neuropathy Patient was carefully examined and evaluated bedside again this evening. Patient remains afebrile. Wound cultures were taken and sent for aerobic, anaerobic, and mrsa pcr evaluation. MRSA pcr negative. Prelim wound cultures show morganella morganii sp sobanii, staph aureus, and poss enterococcus. ID will see patient tomorrow. Blood cultures show no growth after 48 hours. Right foot x-rays taken and results were read as soft tissue swelling, no definite radiographic findings of osteomyelitis and no soft tissue emphysema. Possible MRI if needed. LEAS studies showed ARTI of 1.18 and triphasic DP and PT. Ulcer site was cleansed and then dressed with betadine to ulcer base, aquacel ag, 4x4s, ABDs, and kerlix again today. Patient already has padded offloading boot with her from her long-term and this was applied. A pillow was placed under the patients ankle/calf in order to float the foot to keep pressure completely off of the ulcer site. Patient is to be non weight bearing to this foot with no pressure to the ulcer at all times. If patient is discharged, she can return to her wound care doctor at her long-term who sees her weekly. She is also free to see our wound healing center as well if she prefers. Podiatry will continue to follow while in house.
[2017-09-15 12:11] LABS: Bedside Glucose 91 mg/dL (70-110)
--- NOTE | 2017-09-15 12:14 | PN_ITS ---
Patient Problems: Active and Suspected Problems Cellulitis of right foot (Acute) Type 2 diabetes mellitus with diabetic polyneuropathy (Acute) Diabetic ulcer of right foot (Acute) Subjective: Patient was seen again today resting comfortably in bed for right lateral foot ulcer. Patient did well throughout the evening again. She says she still feels well and has had no complications again today. She continues to deny any feelings of nausea, vomiting, fever, chills, or shortness of breath. - Physical Exam General: Alert, Oriented x3, Cooperative, No apparent distress Extremities: Capillary Refill Less than 3 Seconds - to remaining distal digits of right foot, No Calf Tenderness, Diminished Peripheral Pulses, Edema - lower extremity edema Skin: Ulcer/ Wound - Ulcer appreciated to right lateral foot with fat layer exposed. The ulcer measures approx 2cm x 2cm. The base is mixture of fibrous and granular tissue. Slight amount of adherent slough noted. Fibrotic plug to center. Ulcer continues to dry up with betadine application. There is no purulence appreciated. Scant amount of serosanguinous drainage to bandage, but not appreciated to ulcer. Erythema continues to decrease in area and intensity. No significant increase in warmth appreciated to the area. Patient denies any pain. Musculoskeletal: - - Left BKA. Inverted right foot. Previous right hallux amp as well as partial right 2nd and 3rd toe amputations. No tenderness to ulcer site due to neuropathy Neurological: - - Epicritic sensation grossly absent right lower extremity Psych/Mental Status: Normal Affect, Appropriate Vital Signs Temp Pulse Resp BP Pulse Ox 97.7 F L 86 18 92/57 L 95 09/15/17 07:55 09/15/17 07:55 09/15/17 07:55 09/15/17 07:55 09/15/17 07:55 Oxygen Delivery Method Room Air Weight: 155.7 kg Body Mass Index (BMI) 53.7 Intake and Output for Last 24 Hours 09/13/17 09/14/17 09/15/17 23:59 23:59 23:59 Intake Total 4152 / 4152 2911 / 2911 3129 / 3129 Output Total 2590 / 2590 2460 / 2460 1400 / 1400 Balance 1562 / 1562 451 / 451 1729 / 1729 POC Glucose 09/15/17 09/14/17 09/14/17 06:26 21:15 16:45 POC Glucose 72 144 H 152 H 09/14/17 08:43 POC Glucose 73 Medical Necessity - Tobacco Use Smoking Status: Former smoker Assessment/Plan All Active Problems Cellulitis of right foot (Acute) Type 2 diabetes mellitus with diabetic polyneuropathy (Acute) Diabetic ulcer of right foot (Acute) MSSA (methicillin susceptible Staphylococcus aureus) (Resolved) Mycotic cystitis (Resolved) Osteomyelitis (Resolved) Osteomyelitis due to secondary diabetes (Resolved) Ulcer with fat layer exposed to right lateral foot Cellulitis right foot-improving DM with neuropathy Patient was carefully examined and evaluated bedside again this evening. Patient remains afebrile. Wound cultures were taken and sent for aerobic, anaerobic, and mrsa pcr evaluation. MRSA pcr negative. Prelim wound cultures show morganella morganii sp sobanii, staph aureus, and poss enterococcus. ID will see patient tomorrow. Blood cultures show no growth after 48 hours. Right foot x-rays taken and results were read as soft tissue swelling, no definite radiographic findings of osteomyelitis and no soft tissue emphysema. Possible MRI if needed. LEAS studies showed ARTI of 1.18 and triphasic DP and PT. Ulcer site was cleansed and then dressed with betadine to ulcer base, aquacel ag, 4x4s , ABDs, and kerlix again today. Patient already has padded offloading boot with her from her care home and this was applied. A pillow was placed under the patients ankle/calf in order to float the foot to keep pressure completely off of the ulcer site. Patient is to be non weight bearing to this foot with no pressure to the ulcer at all times. If patient is discharged, she can return to her wound care doctor at her care home who sees her weekly. She is also free to see our wound healing center as well if she prefers. Podiatry will continue to follow while in house.
--- NOTE | 2017-09-15 12:43 | PN_ITS ---
Patient Problems: Active and Suspected Problems Cellulitis of right foot (Acute) Type 2 diabetes mellitus with diabetic polyneuropathy (Acute) Diabetic ulcer of right foot (Acute) Subjective: CC: Follow-up on infected right foot ulcer Objective: She is a 61 years old female shelter resident who was referred from wound center for infected right foot diabetic ulcer, she is found to have significant erythema and swelling , wound cultures grew staph aureus, Morganella Morgani and enterococcus. Today the patient denies any fever or chills. Vitals/I&O's: Vital Signs Temp Pulse Resp BP Pulse Ox 97.7 F L 86 18 92/57 L 95 09/15/17 07:55 09/15/17 07:55 09/15/17 07:55 09/15/17 07:55 09/15/17 07:55 Oxygen Delivery Method Room Air Weight: 155.7 kg Body Mass Index (BMI) 53.7 Intake and Output for Last 24 Hours 09/13/17 09/14/17 09/15/17 23:59 23:59 23:59 Intake Total 4152 / 4152 2911 / 2911 3129 / 3129 Output Total 2590 / 2590 2460 / 2460 1400 / 1400 Balance 1562 / 1562 451 / 451 1729 / 1729 General: Alert HEENT: Atraumatic Neck: Supple Lungs: Clear to auscultation Cardiovascular: Regular rate, Normal S1, Normal S2 Abdomen: Bowel Sounds Present, Soft, Non Tender Neurological: Cranial nerves II-XII grossly intact Psych/Mental Status: Normal Affect Laboratory Results 09/14/17 08:43: POC Glucose 73 09/14/17 16:45: POC Glucose 152 H 09/14/17 21:15: POC Glucose 144 H 09/15/17 06:26: POC Glucose 72 09/15/17 11:59: POC Glucose 91 Current Medications Acetaminophen (Tylenol) 650 mg PO Q6H PRN PRN PRN Reason: Mild Pain (scale 0-3)/T>100.7 Last Admin: 09/14/17 21:02 Dose: 650 mg Apixaban (Eliquis) 5 mg PO BID [facility] Last Admin: 09/15/17 10:14 Dose: 5 mg Bisacodyl (Dulcolax) 10 mg RECTAL DAILY PRN PRN PRN Reason: Constipation Calamine/Phenol (Calmoseptine Ointment) 1 applic TOPICAL 4X/DAY [facility] PRN Reason: Protocol Last Admin: 09/15/17 10:13 Dose: 1 applicatio Cilostazol (Pletal) 50 mg PO BIDAC [facility] Last Admin: 09/15/17 08:06 Dose: 50 mg Cyclobenzaprine HCl (Flexeril) 10 mg PO QHS PRN PRN Reason: PAIN Ferrous Sulfate (Ferrous Sulfate) 325 mg PO BIDCM [facility] Last Admin: 09/15/17 10:12 Dose: 325 mg Hydroxyzine Pamoate (Vistaril Pamoate Capsule) 25 mg PO DAILY [facility] Last Admin: 09/15/17 10:14 Dose: 25 mg Hydroxyzine Pamoate (Vistaril Pamoate Capsule) 50 mg PO QHS [facility] Last Admin: 09/14/17 21:11 Dose: 50 mg Sodium Chloride () 1,000 mls @ 100 mls/hr IV .Q10H [facility] Last Admin: 09/15/17 10:15 Dose: 100 mls/hr Piperacillin Sod/Tazobactam Sod (Zosyn) 3.375 gm in 50 mls @ 12.5 mls/hr IV Q12 [facility] Last Admin: 09/15/17 10:14 Dose: 12.5 mls/hr Insulin Glargine (Lantus (Bkc)) 40 units SC QHS [facility] Last Admin: 09/14/17 21:16 Dose: 40 unit Insulin Glargine (Lantus (Bkc)) 55 units SC DAILY@0700 [facility] Last Admin: 09/15/17 10:12 Dose: 55 units Insulin Human Lispro (Humalog Kwikpen (Bkc)) 0 unit SQ ACHS [facility] PRN Reason: Protocol Last Admin: 09/15/17 12:02 Dose: Not Given Magnesium Hydroxide (Milk Of Magnesia) 30 ml PO DAILY PRN PRN PRN Reason: Constipation Ondansetron HCl (Zofran) 4 mg IV Q8H PRN PRN PRN Reason: Nausea Pravastatin Sodium (Pravachol) 10 mg PO QHS [facility] Last Admin: 09/14/17 21:11 Dose: 10 mg Quetiapine Fumarate (Seroquel) 200 mg PO QHS [facility] Last Admin: 09/14/17 21:10 Dose: 200 mg Sodium Chloride () 5 - 30 ml IV UD PRN PRN Reason: SALINE FLUSH Venlafaxine HCl (Effexor Xr) 225 mg PO DAILY [facility] Last Admin: 09/14/17 10:15 Dose: 225 mg Medical Necessity - Tobacco Use Smoking Status: Former smoker Assessment/Plan All Active Problems Cellulitis of right foot (Acute) Type 2 diabetes mellitus with diabetic polyneuropathy (Acute) Diabetic ulcer of right foot (Acute) MSSA (methicillin susceptible Staphylococcus aureus) (Resolved) Mycotic cystitis (Resolved) Osteomyelitis (Resolved) Osteomyelitis due to secondary diabetes (Resolved) Microbiology Past 72 Hours 09/12/17 15:50 Wound Drainage - Toe Wound Culture - Preliminary Morganella morganii sp sibonii Staphylococcus aureus GPC Poss Enterococcus sp Foot X-Ray 09/12/17 17:20 IMPRESSION: Status post amputation of the right first toe. No fracture or dislocation. No definite radiographic findings of osteomyelitis. If concern persists, consider further evaluation with MRI. Soft tissue swelling. 1. Infected right foot ulcer/cellulitis; polymicrobial cultures with Morganella morganii, enterococcus and staphylococcal aureus, we will continue IV Zosyn and Vancomycin. 2 . FARIDEH on stage III CKD; will monitor renal parameters closely and avoid potential nephrotoxic medications. 3 mild hyperkalemia; lisinopril has been discontinued, will repeat renal parameters in a.m. 4 type 2 diabetes mellitus; continue regular insulin sliding scale and Lantus. 5 hypertension; continue current medications. 6. Left BKA; secondary to left diabetic foot and leg infection 7. Chronic anticoagulation with no clear indication will obtain records from the shelter and her PCP. 8. DVT prophylaxis; she is on Eliquis Code Visit Inpatient E&M: 26746 Subs Hosp L2
[2017-09-15 13:50] VITALS: BP 112/54; PULSE 81; RESP 16; TEMP 36.6; O2SAT 98
[2017-09-15 14:07] LABS: Anion Gap 9 (5-15); BUN 73 mg/dL (7-18); BUN/Creat Ratio 22.8 RATIO (10-20); Calcium,Total 8.4 mg/dL (8.5-10.1); Chloride 110 mmol/L (98-107); EST Glomerular Filtration Rate 16 mL/min (>60); Est Glom Filt Rate - Afr Amer 19 mL/min (>60); Estimated Creatinine Clearance 18.41 ml/min; Glucose 100 mg/dL (74-106); Potassium 5.1 mmol/L (3.5-5.1); Sodium Level 139 mmol/L (136-145)
[2017-09-15] MEDS: Venlafaxine XR 75 MG Capsule 225 MG PO (16:09)
[2017-09-15 16:26] LABS: Bedside Glucose 85 mg/dL (70-110)
[2017-09-15 20:30] VITALS: BP 128/70; PULSE 98; RESP 18; TEMP 36.9; O2SAT 98
[2017-09-15] MEDS: QUEtiapine 100 MG Tablet 200 MG PO (22:35)
[2017-09-15] MEDS: hydrOXYzine PAM 25 MG Capsule 50 MG PO (22:35)
[2017-09-15] MEDS: Pravastatin 20 MG Tablet 10 MG PO (22:36)
[2017-09-15 23:11] LABS: Bedside Glucose 133 mg/dL (70-110)
[2017-09-16 02:40] VITALS: BP 98/55; PULSE 86; RESP 16; TEMP 36.7; O2SAT 95
[2017-09-16 06:28] LABS: Anion Gap 9 (5-15); BUN 71 mg/dL (7-18); BUN/Creat Ratio 22.8 RATIO (10-20); Calcium,Total 8.3 mg/dL (8.5-10.1); Chloride 111 mmol/L (98-107); Creatinine, Serum 3.11 mg/dL (0.55-1.02); EST Glomerular Filtration Rate 16 mL/min (>60); Est Glom Filt Rate - Afr Amer 20 mL/min (>60); Estimated Creatinine Clearance 18.94 ml/min; Glucose 55 mg/dL (74-106); Potassium 4.9 mmol/L (3.5-5.1); Sodium Level 138 mmol/L (136-145)
[2017-09-16 06:48] VITALS: O2SAT 96
[2017-09-16 08:00] VITALS: BP 113/80; PULSE 85; RESP 16; TEMP 36.4; O2SAT 96
[2017-09-16] MEDS: Ferrous Sulfate 325 MG Tablet PO ×2 (08:05→16:43)
[2017-09-16] MEDS: Cilostazol 50 MG Tablet PO ×2 (08:06→16:43)
--- NOTE | 2017-09-16 08:14 | PCM.PN.HOSP ---
Subjective: Patient is a 61 year old lady with history of diabetes mellitus type 2, hypertension resident at an [facility] who presented with right foot erythema with swelling and assessment of infected right foot cellulitis made admitted to regular nursing floor for further management 09/16/2017: Patient had hypoglycemic episode this a.m. 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 SKIN: As described above Vitals/I&O's: Vital Signs Temp Pulse Resp BP Pulse Ox 97.6 F L 85 16 113/80 96 09/16/17 08:00 09/16/17 08:00 09/16/17 08:00 09/16/17 08:00 09/16/17 08:00 Oxygen Delivery Method Room Air Weight: 155.7 kg Body Mass Index (BMI) 53.7 Intake and Output for Last 24 Hours 09/14/17 09/15/17 09/16/17 23:59 23:59 23:59 Intake Total 2911 / 2911 3551.5 / 3551.5 698.1 / 698.1 Output Total 2460 / 2460 2525 / 2525 1450 / 1450 Balance 451 / 451 1026.5 / 1026.5 -751.9 / -751.9 Laboratory Results 09/15/17 11:59: POC Glucose 91 09/15/17 13:42: Sodium 139, Potassium 5.1, Chloride 110 H, Carbon Dioxide 20.0 L, Anion Gap 9, BUN 73 H, Creatinine 3.20 H, Estim Creat Clear Calc 18.41, Est GFR (MDRD) Af Amer 19 L, Est GFR (MDRD) Non-Af 16 L, BUN/Creatinine Ratio 22.8 H, Glucose 100, Calcium 8.4 L 09/15/17 16:14: POC Glucose 85 09/15/17 22:32: POC Glucose 133 H 09/16/17 05:40: Sodium 138, Potassium 4.9, Chloride 111 H, Carbon Dioxide 18.0 L, Anion Gap 9, BUN 71 H, Creatinine 3.11 H, Estim Creat Clear Calc 18.94, Est GFR (MDRD) Af Amer 20 L, Est GFR (MDRD) Non-Af 16 L, BUN/Creatinine Ratio 22.8 H, Glucose 55 L, Calcium 8.3 L Current Medications Acetaminophen (Tylenol) 650 mg PO Q6H PRN PRN PRN Reason: Mild Pain (scale 0-3)/T>100.7 Last Admin: 09/14/17 21:02 Dose: 650 mg Apixaban (Eliquis) 5 mg PO BID [facility] Last Admin: 09/15/17 22:36 Dose: 5 mg Bisacodyl (Dulcolax) 10 mg RECTAL DAILY PRN PRN PRN Reason: Constipation Calamine/Phenol (Calmoseptine Ointment) 1 applic TOPICAL 4X/DAY [facility] PRN Reason: Protocol Last Admin: 09/15/17 22:40 Dose: 1 applicatio Cilostazol (Pletal) 50 mg PO BIDAC [facility] Last Admin: 09/16/17 08:06 Dose: 50 mg Cyclobenzaprine HCl (Flexeril) 10 mg PO QHS PRN PRN Reason: PAIN Ferrous Sulfate (Ferrous Sulfate) 325 mg PO BIDCM [facility] Last Admin: 09/16/17 08:05 Dose: 325 mg Hydroxyzine Pamoate (Vistaril Pamoate Capsule) 25 mg PO DAILY [facility] Last Admin: 09/15/17 10:14 Dose: 25 mg Hydroxyzine Pamoate (Vistaril Pamoate Capsule) 50 mg PO QHS [facility] Last Admin: 09/15/17 22:35 Dose: 50 mg Piperacillin Sod/Tazobactam Sod (Zosyn) 3.375 gm in 50 mls @ 12.5 mls/hr IV Q12 [facility] Last Admin: 09/15/17 22:34 Dose: 12.5 mls/hr Insulin Glargine (Lantus (Bkc)) 40 units SC QHS [facility] Last Admin: 09/15/17 22:36 Dose: 40 unit Insulin Glargine (Lantus (Bkc)) 55 units SC DAILY@0700 [facility] Last Admin: 09/15/17 10:12 Dose: 55 units Insulin Human Lispro (Humalog Kwikpen (Bkc)) 0 unit SQ ACHS [facility] PRN Reason: Protocol Last Admin: 09/16/17 08:04 Dose: Not Given Magnesium Hydroxide (Milk Of Magnesia) 30 ml PO DAILY PRN PRN PRN Reason: Constipation Ondansetron HCl (Zofran) 4 mg IV Q8H PRN PRN PRN Reason: Nausea Pravastatin Sodium (Pravachol) 10 mg PO QHS [facility] Last Admin: 09/15/17 22:36 Dose: 10 mg Quetiapine Fumarate (Seroquel) 200 mg PO QHS [facility] Last Admin: 09/15/17 22:35 Dose: 200 mg Sodium Chloride () 5 - 30 ml IV UD PRN PRN Reason: SALINE FLUSH Venlafaxine HCl (Effexor Xr) 225 mg PO DAILY [facility] Last Admin: 09/15/17 16:09 Dose: 225 mg Medical Necessity - Tobacco Use Smoking Status: Former smoker Assessment/Plan All Active Problems Cellulitis of right foot (Acute) Type 2 diabetes mellitus with diabetic polyneuropathy (Acute) Diabetic ulcer of right foot (Acute) MSSA (methicillin susceptible Staphylococcus aureus) (Resolved) Mycotic cystitis (Resolved) Osteomyelitis (Resolved) Osteomyelitis due to secondary diabetes (Resolved) Patient is a 61 year old lady with history of diabetes mellitus type 2, hypertension resident at an [facility] who presented with right foot erythema with swelling and assessment of infected right foot cellulitis made admitted to regular nursing floor for further management 1. Polymicrobial(Morganella morganii, enterococcus and staphylococcal aureus final identification and sensitivities pending,)infected right foot ulcer/cellulitis; managed with IV Zosyn and Vancomycin. Consultation was placed to podiatry. Also did place consultation to infectious disease 2. Acute kidney injury secondary to above on fluids with monitoring of electrolytes and avoidance of nephrotoxic agents 3. Diabetes mellitus type 2 with complications including diabetic nephropathy and episodes of hypoglycemia did adjust patient insulin dose 4. Chronic kidney disease stage III baseline creatinine on the average 1.8. On admission was 3.4 ; did consult nephrology 5. Hypertension-blood pressure controlled, home medications continued with dose adjustment as needed 6. Anemia secondary to anemia of chronic disorder; monitoring H&H 7. Morbid obesity: With a BMI of 53.8 patient was counseled on weight reduction 8. Dyslipidemia-patient is on statin therapy, continued at home dose 9. History of left BKA 10. Right lower extremity DVT patient is on systemic anticoagulation with Eliquis 11. DVT Prophylaxis patient is on Eliquis 12. Depression patient is on SSRI Active Medications Acetaminophen (Tylenol) 650 mg PO Q6H PRN PRN PRN Reason: Mild Pain (scale 0-3)/T>100.7 Last Admin: 09/14/17 21:02 Dose: 650 mg Apixaban (Eliquis) 5 mg PO BID [facility] Last Admin: 09/15/17 22:36 Dose: 5 mg Bisacodyl (Dulcolax) 10 mg RECTAL DAILY PRN PRN PRN Reason: Constipation Calamine/Phenol (Calmoseptine Ointment) 1 applic TOPICAL 4X/DAY [facility] PRN Reason: Protocol Last Admin: 09/15/17 22:40 Dose: 1 applicatio Cilostazol (Pletal) 50 mg PO BIDAC [facility] Last Admin: 09/16/17 08:06 Dose: 50 mg Cyclobenzaprine HCl (Flexeril) 10 mg PO QHS PRN PRN Reason: PAIN Ferrous Sulfate (Ferrous Sulfate) 325 mg PO BIDCM [facility] Last Admin: 09/16/17 08:05 Dose: 325 mg Hydroxyzine Pamoate (Vistaril Pamoate Capsule) 25 mg PO DAILY [facility] Last Admin: 09/15/17 10:14 Dose: 25 mg Hydroxyzine Pamoate (Vistaril Pamoate Capsule) 50 mg PO QHS [facility] Last Admin: 09/15/17 22:35 Dose: 50 mg Piperacillin Sod/Tazobactam Sod (Zosyn) 3.375 gm in 50 mls @ 12.5 mls/hr IV Q12 [facility] Last Admin: 09/15/17 22:34 Dose: 12.5 mls/hr Insulin Glargine (Lantus (Bkc)) 40 units SC QHS [facility] Last Admin: 09/15/17 22:36 Dose: 40 unit Insulin Glargine (Lantus (Bkc)) 55 units SC DAILY@0700 [facility] Last Admin: 09/15/17 10:12 Dose: 55 units Insulin Human Lispro (Humalog Kwikpen (Bkc)) 0 unit SQ ACHS [facility] PRN Reason: Protocol Last Admin: 09/16/17 08:04 Dose: Not Given Magnesium Hydroxide (Milk Of Magnesia) 30 ml PO DAILY PRN PRN PRN Reason: Constipation Ondansetron HCl (Zofran) 4 mg IV Q8H PRN PRN PRN Reason: Nausea Pravastatin Sodium (Pravachol) 10 mg PO QHS [facility] Last Admin: 09/15/17 22:36 Dose: 10 mg Quetiapine Fumarate (Seroquel) 200 mg PO QHS [facility] Last Admin: 09/15/17 22:35 Dose: 200 mg Sodium Chloride () 5 - 30 ml IV UD PRN PRN Reason: SALINE FLUSH Venlafaxine HCl (Effexor Xr) 225 mg PO DAILY [facility] Last Admin: 09/15/17 16:09 Dose: 225 mg Clinical Impression(s) from Imaging Studies Foot X-Ray 09/12/17 17:20 IMPRESSION: Status post amputation of the right first toe. No fracture or dislocation. No definite radiographic findings of osteomyelitis. If concern persists, consider further evaluation with MRI. Soft tissue swelling. Electronically Signed: Sonny Weber, at 17:39 EDT Tel , Service support , Code Visit Inpatient E&M: 97451 Subs Hosp L3
[2017-09-16 08:25] LABS: Bedside Glucose 61 mg/dL (70-110)
[2017-09-16 08:26] LABS: Bedside Glucose 69 mg/dL (70-110)
[2017-09-16 08:26] LABS: Bedside Glucose 88 mg/dL (70-110)
[2017-09-16] MEDS: hydrOXYzine PAM 25 MG Capsule PO (10:15)
[2017-09-16] MEDS: Venlafaxine XR 75 MG Capsule 225 MG PO (10:15)
[2017-09-16] MEDS: APIXABAN 5 MG TABLET PO ×2 (10:16→22:57)
[2017-09-16] MEDS: Piperacil/Tazobactam 3.375 GM/50 ML ML IV ×2 (10:18→23:06)
[2017-09-16] MEDS: Menthol/Lanolin/Calamine/Znox 113 GM Tube 1 APPLIC TOPICAL ×3 (10:19→23:07)
[2017-09-16 11:30] LABS: Bedside Glucose 94 mg/dL (70-110)
--- NOTE | 2017-09-16 12:40 | PCA ---
Obtained blood sugar for nurse at 11am.
--- NOTE | 2017-09-16 13:31 | MRI_ITS ---
STUDY: MRI RIGHT FOOT REASON FOR EXAM: Infected right foot ulcer at the lateral foot, evaluate for osteomyelitis. TECHNIQUE: Standardized fat and water weighted pulse sequences were obtained in all 3 orthogonal planes. COMPARISON: Radiographs 09/12/2017 and MRI images 03/20/2017. FINDINGS: Normal talonavicular articulation. Normal calcaneocuboid articulation. Normal navicular-cuneiform articulations. Normal intercuneiform articulations. Normal first tarsometatarsal articulation. Normal Lisfranc ligament. Normal second and third tarsometatarsal articulations. Normal cuboid fourth and cuboid fifth tarsometatarsal articulation. There is amputation of the first digit at the level of the metatarsal diaphysis. There is bone edema of the head and distal half of the diaphysis of the fifth metatarsal (inversion recovery sagittal image 7) with mild decreased T1 bone marrow signal in the fifth metatarsal head and a small erosion of the plantar aspect of the metatarsal head (T1 sagittal image 7) suggestive of osteomyelitis. There is also bone edema of the base of the fifth proximal phalanx (inversion recovery sagittal image 9) with mild decreased T1 bone marrow signal (T1 sagittal image 9) also suggestive of osteomyelitis. There is a skin ulcer adjacent to the fifth metatarsophalangeal joint. There is edema and fluid in the dorsal subcutis adipose space with an ill-defined fluid collection in the dorsal subcutis adipose space of the forefoot (T2 coronal series 4 images 12-17), possibly representing a phlegmon. There is atrophy of the intrinsic muscles of the foot suggestive of peripheral neuropathy. MRI/Lower Ext/No Jt/w/o IMPRESSION: Signal alteration of the distal fifth metatarsal and fifth proximal phalangeal base, suggestive of osteomyelitis. Ill-defined fluid collection in the dorsal subcutis adipose space of the forefoot, possibly representing a phlegmon. Electronically Signed: Carlos Hairston MD at 8:29 EDT Tel , Service support ,
--- NOTE | 2017-09-16 13:56 | PCM.HP.ID ---
Problem List (1) Cellulitis of right foot Status: Acute Reason for Consult: R foot infection Consulted by: Dr. Lam History of Present Illness: The patient is a 61 year old F with DM neuropathy, CKD, and prior L BKA due to infection who presented with several days of R foot worsening ulceration and redness. No fever or chills. Some nausea. Redness was contained to her foot. Has had blisters on foot since 03/2017 but had been improving until the past week. Came to ED, started on vanc/zosyn, podiatry consulted. Overall feeling better. Cx (+) mssa. Vanc has been stopped. Full ROS performed and neg except as noted above. - Medical History Past Medical History (Chronic Problems): Chronic Problems History of tobacco abuse (Chronic) HLD (hyperlipidemia) (Chronic) HTN (hypertension) (Chronic) Morbid obesity (Chronic) bmi 46 Noncompliance (Chronic) with diabetic therapy Personality disorder (Chronic) History of self-harm (Chronic) scratching and picking Self neglect (Chronic) Type 2 diabetes mellitus (Chronic) Bipolar disorder (Chronic) Anxiety (Chronic) 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 2 diabetes mellitus with diabetic polyneuropathy (Chronic) Allergies/Adverse Reactions: Allergies adhesive Allergy (Verified 09/12/17 16:21) Rash cefadroxil hydrate [From Duricef] Allergy (Verified 09/12/17 16:21) Rash cephalexin monohydrate [From Keflex] Allergy (Verified 09/12/17 16:21) Rash venom-honey bee [bee venom (honey bee)] Allergy (Verified 09/12/17 16:21) Rash Home Medications: Ambulatory Orders Medication Instructions Recorded Quetiapine Fumarate [Seroquel] 200 mg PO QHS 01/06/13 Ascorbic Acid [Vitamin C] 500 mg PO BIDCM #30 tablet 10/10/13 Calcium Citrate/Vitamin D3 1 each PO BID 01/21/15 [Calcium Citrate-Vit D3 Tablet] Ferrous Sulfate 325 mg PO BIDCM 01/21/15 Acetaminophen [Tylenol Tablet] 650 mg PO Q4H PRN 03/20/17 Bisacodyl 10 mg RC DAILY PRN PRN 03/20/17 Hydrocortisone [Anusol Hc] 25 mg RECTAL 4X/DAY PRN PRN 03/20/17 Insulin Glargine,Hum.rec.anlog 55 unit SC DAILY 03/20/17 [Lantus] Insulin Lispro [Humalog] See Protocol SQ ACHS 03/20/17 Magnesium Hydroxide [Milk Of 30 ml PO DAILY PRN PRN 03/20/17 Magnesia] Promethazine HCl [Promethegan] 25 mg PO Q6H PRN 03/20/17 Venlafaxine XR [Effexor Xr] 225 mg PO DAILY 03/20/17 Acetaminophen [Tylenol Extra 500 mg PO Q8H PRN 09/12/17 Strength] Apixaban [Eliquis] 5 mg PO BID 09/12/17 Cholecalciferol (Vitamin D3) 2,000 unit PO DAILY 09/12/17 [Vitamin D3] Cilostazol [Pletal] 50 mg PO BIDAC 09/12/17 Cyclobenzaprine [Flexeril] 10 mg PO QHS PRN 09/12/17 Furosemide [Lasix] 20 mg PO DAILY 09/12/17 Guaifenesin Dm [Robitussin Dm] 10 ml PO Q6H PRN 09/12/17 Hydroxyzine HCl 25 mg PO DAILY 09/12/17 Insulin Glargine,Hum.rec.anlog 40 unit SC QHS 09/12/17 [Lantus] Loperamide [Imodium] 2 mg PO PRN PRN MDD 4 tabs/day 09/12/17 Metoprolol Tartrate [Lopressor 100 mg PO BID 09/12/17 (Beta Chary)] Multivitamins,Therapeutic 1 tablet PO DAILY 09/12/17 [Multivitamin] Paroxetine HCl [Paxil] 20 mg PO DAILY 09/12/17 Pravastatin [Pravachol] 10 mg PO DAILY 09/12/17 Sodium Chloride [Saline Nasal 2 spray NS Q2H PRN 09/12/17 [place]] Zinc Oxide 1 applic TOPICAL TID 09/12/17 hydrOXYzine pamoate capsule 50 mg PO QHS 09/12/17 [Vistaril pamoate capsule] - Social History SMOKING STATUS:: Former smoker Vital Signs Temp Pulse Resp BP Pulse Ox 97.6 F L 85 16 113/80 96 09/16/17 08:00 09/16/17 08:00 09/16/17 08:00 09/16/17 08:00 09/16/17 08:00 Oxygen Delivery Method Room Air Weight: 155.7 kg Body Mass Index (BMI) 53.7 Laboratory Tests Past 24 Hrs 09/15/17 09/16/17 13:42 05:40 Sodium 139 138 Potassium 5.1 4.9 Chloride 110 H 111 H Carbon Dioxide 20.0 L 18.0 L Anion Gap 9 9 BUN 73 H 71 H Creatinine 3.20 H 3.11 H Estim Creat Clear Calc 18.41 18.94 Est GFR (MDRD) Af Amer 19 L 20 L Est GFR (MDRD) Non-Af 16 L 16 L BUN/Creatinine Ratio 22.8 H 22.8 H Glucose 100 55 L Calcium 8.4 L 8.3 L - Other Studies Radiology: [] reviewed Other Studies: [] Route of nutrition/ use of supplements: [] Nutritional Intake: [] IV Site: [] Shay Catheter: [] - Physical Exam General: Alert, Oriented x3, Cooperative, No apparent distress HEENT: Atraumatic, PERRLA, EOMI Neck: Supple, No Nodes Lungs: Clear to auscultation, Normal air movement Cardiovascular: Regular rate, Regular Rhythm, No murmurs Abdomen: Bowel Sounds Present, Soft, Non Tender, Non-Distended Extremities: - - L BKA Skin: Ulcer/ Wound - R foot wrapped IV Site: Peripheral, without redness Musculoskeletal: No Tenderness to Palpation of Joints or Extremities Neurological: Cranial nerves II-XII grossly intact - Assessment/Plan Antibiotics: [] Assessment/Plan: [] R DM foot infection due to MSSA - h/o peripheral neuropathy and prior L BKA. Continue zosyn. Cxs with mssa, enterococcus, and morganella. Will order MRI noncontrast to look for osteo. Podiatry following. Will follow, thank you.
[2017-09-16 14:00] VITALS: BP 126/73; PULSE 90; RESP 18; TEMP 36.2; O2SAT 100
--- NOTE | 2017-09-16 15:43 | PCM.CONS.R ---
Consultation - Renal 09/16/17 PCP/ Referring MD: Requesting physician: Reynaldo Lam Primary care physician: Leroy Marie Reason for Consultation:: FARIDEH on CKD stage 3 - History of Present Illness History of Present Illness: The patient is a 61 year old morbidly obese F resident of [facility] with multiple medical comorbidities admitted on 09/12 for right lateral foot infection with erythema and swelling past several days noted by [facility] staff and wound doctor last . The patient has peripheral neuropathy with decreased sensation in her right foot. She denied any right foot pain. She states that her boot was twisted in bed. She is sedentary, bedridden requiring [facility] at the shelter. She is nonweightbearing since her last hospitalization for right foot infection March 2017. She denies any fever or chills. She did have nausea, vomiting, diarrhea prior to last week. She had a history of poorly controlled type 2 diabetes mellitus on high doses of insulin status post left BKA around 4 years ago due to infection. Her A1c in March, was 7.9. She had a history of chronic kidney disease stage III likely due to diabetes with urinalysis showing proteinuria in the past. She had a baseline creatinine of 1.5-1.8 mg/dL in 2015 and 2016. Creatinine on admit was 3.40 potassium of 5.6. Creatinine is down to 3.1 today with potassium 4.9. She has been requiring Salgado catheter to continuous drainage for the past several weeks after seen by urology for diabetic bladder with urinary frequency, urgency, incontinence. She denied any recent urinary tract infections. She has not been seen by nephrology in the past. X-ray of the right foot showed soft tissue swelling, no acute findings, no evidence of osteomyelitis. She has been treated with IV Zosyn. She has no fever or chills. White count was unremarkable. Blood pressure is low normal. She is not on antihypertensive medications. Her Lasix has been discontinued since admission. There is no IV contrast exposure during hospitalization. She denied heart disease, stroke, [place]. FH significant for diabetes in her mother, brother, sister, maternal uncle, paternal uncle and GF. CAD in mother, maternal aunt. Cancer of the spleen and ovary in grandmother. No FH for renal failure. - Allergies Allergies: Allergies adhesive Allergy (Verified 09/12/17 16:21) Rash cefadroxil hydrate [From Duricef] Allergy (Verified 09/12/17 16:21) Rash cephalexin monohydrate [From Keflex] Allergy (Verified 09/12/17 16:21) Rash venom-honey bee [bee venom (honey bee)] Allergy (Verified 09/12/17 16:21) Rash - Current Medications Current Medications: Current Medications Acetaminophen (Tylenol) 650 mg PO Q6H PRN PRN PRN Reason: Mild Pain (scale 0-3)/T>100.7 Last Admin: 09/14/17 21:02 Dose: 650 mg Apixaban (Eliquis) 5 mg PO BID [facility] Last Admin: 09/16/17 10:16 Dose: 5 mg Bisacodyl (Dulcolax) 10 mg RECTAL DAILY PRN PRN PRN Reason: Constipation Calamine/Phenol (Calmoseptine Ointment) 1 applic TOPICAL 4X/DAY [facility] PRN Reason: Protocol Last Admin: 09/16/17 10:19 Dose: 1 applicatio Cilostazol (Pletal) 50 mg PO BIDAC [facility] Last Admin: 09/16/17 08:06 Dose: 50 mg Cyclobenzaprine HCl (Flexeril) 10 mg PO QHS PRN PRN Reason: PAIN Ferrous Sulfate (Ferrous Sulfate) 325 mg PO BIDCM [facility] Last Admin: 09/16/17 08:05 Dose: 325 mg Hydroxyzine Pamoate (Vistaril Pamoate Capsule) 25 mg PO DAILY [facility] Last Admin: 09/16/17 10:15 Dose: 25 mg Hydroxyzine Pamoate (Vistaril Pamoate Capsule) 50 mg PO QHS [facility] Last Admin: 09/15/17 22:35 Dose: 50 mg Piperacillin Sod/Tazobactam Sod (Zosyn) 3.375 gm in 50 mls @ 12.5 mls/hr IV Q12 [facility] Last Admin: 09/16/17 10:18 Dose: 12.5 mls/hr Insulin Glargine (Lantus (Bkc)) 25 units SC DAILY@0700 [facility] Insulin Glargine (Lantus (Bkc)) 25 units SC QHS [facility] Insulin Human Lispro (Humalog Kwikpen (Bkc)) 0 unit SQ ACHS [facility] PRN Reason: Protocol Last Admin: 09/16/17 12:55 Dose: Not Given Magnesium Hydroxide (Milk Of Magnesia) 30 ml PO DAILY PRN PRN PRN Reason: Constipation Ondansetron HCl (Zofran) 4 mg IV Q8H PRN PRN PRN Reason: Nausea Pravastatin Sodium (Pravachol) 10 mg PO QHS [facility] Last Admin: 09/15/17 22:36 Dose: 10 mg Quetiapine Fumarate (Seroquel) 200 mg PO QHS [facility] Last Admin: 09/15/17 22:35 Dose: 200 mg Sodium Chloride () 5 - 30 ml IV UD PRN PRN Reason: SALINE FLUSH Venlafaxine HCl (Effexor Xr) 225 mg PO DAILY [facility] Last Admin: 09/16/17 10:15 Dose: 225 mg - Past Medical History Past Medical History (Chronic Problems): Chronic Problems History of tobacco abuse (Chronic) HLD (hyperlipidemia) (Chronic) HTN (hypertension) (Chronic) Morbid obesity (Chronic) bmi 46 Noncompliance (Chronic) with diabetic therapy Personality disorder (Chronic) History of self-harm (Chronic) scratching and picking Self neglect (Chronic) Type 2 diabetes mellitus (Chronic) Bipolar disorder (Chronic) Anxiety (Chronic) 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 2 diabetes mellitus with diabetic polyneuropathy (Chronic) - Past Surgical History Surgical History: - - foot surgeries, right great toe, partial 2nd, 3rd toe amputation, left below the knee amputation - Social History Smoking Status: Former smoker Alcohol: None Drugs: None - Family History Maternal History Items: Diabetes, Heart Disease, Hypertension Paternal History Items: No pertinent history Sibling History Items: Diabetes Review of Systems Constitutional: Reports: Weakness. Denies: Anorexia, Chills, Fever Eyes: Denies: Vision Change HEENT: Denies: Head Aches Cardiovascular: Reports: Edema - history on lasix. Denies: Chest Pain Respiratory: Denies: Cough, Shortness of Breath Gastrointestinal: Denies: Abdominal Pain, Constipation, Diarrhea, Nausea, Vomiting Genitourinary: Reports: Frequency, Incontinence, Urgency, - - indwelling salgado catheter. Denies: Dysuria Musculoskeletal: Reports: - - left BKA Skin: Reports: Lesions - on arm, poultry picker, Wounds - right lateral foot Neurological: Reports: - - nonwt bearing, generalized weakness Psychiatric: Reports: Anxiety, - - bipolar disease Endocrine: Reports: Polyuria. Denies: Heat/ Cold Intolerance, Polydipsia Hematologic/ Lymphatic: Reports: Anemia. Denies: Hx of blood clot - Physical Exam General: Alert, Oriented x3, Cooperative, No apparent distress, - - morbidly obese HEENT: Atraumatic, PERRLA, EOMI Oral: Moist Mucosa Neck: Supple Lungs: Clear to auscultation Cardiovascular: Regular rate Abdomen: Bowel Sounds Present, Soft, Non Tender, Non-Distended, Obese - super, - - suboptimal exam Extremities: No edema, - - left BKA, rt great toe amputation, partial 2nd, 3rd toe amputation. Rt foot wrapped Skin: Ulcer/ Wound - right foot, wrapped, - - dime sized coin lesions on lateral arm from picking Musculoskeletal: No Tenderness to Palpation of Joints or Extremities Neurological: Cranial nerves II-XII grossly intact Psych/Mental Status: Normal Affect, Appropriate, Alert and oriented to time, place, person, mood and affect Vital Signs Temp Pulse Resp BP Pulse Ox 97.6 F L 85 16 113/80 96 09/16/17 08:00 09/16/17 08:00 09/16/17 08:00 09/16/17 08:00 09/16/17 08:00 Oxygen Delivery Method Room Air Weight: 155.7 kg Body Mass Index (BMI) 53.7 Intake and Output for Last 24 Hours 09/14/17 09/15/17 09/16/17 23:59 23:59 23:59 Intake Total 2911 / 2911 3551.5 / 3551.5 698.1 / 698.1 Output Total 2460 / 2460 2525 / 2525 1450 / 1450 Balance 451 / 451 1026.5 / 1026.5 -751.9 / -751.9 Laboratory Tests Past 24 Hrs 09/16/17 05:40 Sodium 138 Potassium 4.9 Chloride 111 H Carbon Dioxide 18.0 L Anion Gap 9 BUN 71 H Creatinine 3.11 H Estim Creat Clear Calc 18.94 Est GFR (MDRD) Af Amer 20 L Est GFR (MDRD) Non-Af 16 L BUN/Creatinine Ratio 22.8 H Glucose 55 L Calcium 8.3 L POC Glucose 09/16/17 09/16/17 09/16/17 11:23 08:01 07:15 POC Glucose 94 88 69 L 09/16/17 09/15/1709/15/18 06:57 22:32 16:14 POC Glucose 61 L 133 H 85 Clinical Impression(s) from Imaging Studies Foot X-Ray 09/12/17 17:20 IMPRESSION: Status post amputation of the right first toe. No fracture or dislocation. No definite radiographic findings of osteomyelitis. If concern persists, consider further evaluation with MRI. Soft tissue swelling. Electronically Signed: Sonny Weber, at 17:39 EDT Tel , Service support , Assessment/Plan All Active Problems Cellulitis of right foot (Acute) Type 2 diabetes mellitus with diabetic polyneuropathy (Acute) Diabetic ulcer of right foot (Acute) MSSA (methicillin susceptible Staphylococcus aureus) (Resolved) Mycotic cystitis (Resolved) Osteomyelitis (Resolved) 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 Acute on chronic kidney disease stage III. Baseline creatinine 1.5-1.8 in 2015, 2017. Creatinine 1.73 during last hospitalization in March 2017. Creatinine on admission 3.4 improved to 3.1 eGFR 16cc/min today. No urgency to initiate dialysis. Agree with discontinuation of Lasix since she does not have significant edema. Acute kidney component likely due to recent hospitalization for cellulitis and hypotension. No recent IV contrast exposure. Check renal ultrasound. Recently seen by urology who suggested indwelling Salgado catheter for urinary incontinence. Avoid nephrotoxins, eg NSAIDs, iv contrast. Renal dose antibx. 2. CKD stage 3 due to Diabetic nephropathy with urinalysis showing proteinuria in 2016. Check renal ultrasound, urine protein creatinine ratio. Check FENA 3. DM2 with neuropathy, left BKA for infection. Hx noncompliance. Check hgbA1C 4. Rt foot cellulitis on iv antibx. Afebrile without leukocytosis. CRP 75.5 ESR 24. Follow vanco levels while on vanco. Last vanco 14.5 on 09/14. 5. Hyperkalemia resolved. Discussed high potassium foods to avoid. Follow low K diet 6. Super morbid obesity/sedentary 7. Bipolar disease primary service mgmt
--- NOTE | 2017-09-16 15:46 | CASEMGMT ---
Social Work Note SW faxed updated clinicals to Kayley at [facility]. Plan: Return to [facility] when medically cleared Anette Long PNEUMATIC TESTER MECHANIC, PLASTER PATTERN CASTER
--- NOTE | 2017-09-16 15:47 | PN_ITS ---
Subjective: Patient seen today for follow up on right foot. He has no new complaints. She just got back from MRI on the right foot. No fever or chills. - Physical Exam General: Alert, Oriented x3, Cooperative, No apparent distress Extremities: Capillary Refill Less than 3 Seconds, No Calf Tenderness, - - Ulceration plantar lateral 5th metatarsal head with fibrotic tissue, close to the bone, margins viable and intact, no undermining, cellulitis around the area is resolving and improving, there is no maloder, no visible abscess, no crepitus , no fluctuance present. Peripheral neuropathy present to the right foot, no evidence of acute ischemia - reviewed LEAS and patient with good arterial flow to right foot. Right hallux absent from previous surgery. Left BKA. Vital Signs Temp Pulse Resp BP Pulse Ox 97.6 F L 85 16 113/80 96 09/16/17 08:00 09/16/17 08:00 09/16/17 08:00 09/16/17 08:00 09/16/17 08:00 Oxygen Delivery Method Room Air Weight: 155.7 kg Body Mass Index (BMI) 53.7 Intake and Output for Last 24 Hours 09/14/17 09/15/17 09/16/17 23:59 23:59 23:59 Intake Total 2911 / 2911 3551.5 / 3551.5 698.1 / 698.1 Output Total 2460 / 2460 2525 / 2525 1450 / 1450 Balance 451 / 451 1026.5 / 1026.5 -751.9 / -751.9 Laboratory Tests Past 24 Hrs 09/16/17 05:40 Sodium 138 Potassium 4.9 Chloride 111 H Carbon Dioxide 18.0 L Anion Gap 9 BUN 71 H Creatinine 3.11 H Estim Creat Clear Calc 18.94 Est GFR (MDRD) Af Amer 20 L Est GFR (MDRD) Non-Af 16 L BUN/Creatinine Ratio 22.8 H Glucose 55 L Calcium 8.3 L POC Glucose 09/16/17 09/16/17 09/16/17 11:23 08:01 07:15 POC Glucose 94 88 69 L 09/16/17 09/15/17 09/15/17 06:57 22:32 16:14 POC Glucose 61 L 133 H 85 Medical Necessity - Tobacco Use Smoking Status: Former smoker Assessment/Plan All Active Problems Cellulitis of right foot (Acute) Type 2 diabetes mellitus with diabetic polyneuropathy (Acute) Diabetic ulcer of right foot (Acute) MSSA (methicillin susceptible Staphylococcus aureus) (Resolved) Mycotic cystitis (Resolved) Osteomyelitis (Resolved) Osteomyelitis due to secondary diabetes (Resolved) Ulcer with fat layer exposed to right lateral foot Cellulitis right foot-improving DM with neuropathy Cellulitis is improving. Continue with antibiotic therapy, ID following. MRI pending to assess for underlying osteomyelitis. Continue with local wound care - daily dressing changes with aquacel ag, 4x4s, ABDs, and kerlix. Continue with offloading at all times - continue with her padded offloading boot with her from her fpc. No weight to right foot. Will follow up on MRI. Podiatry will continue to follow.
--- NOTE | 2017-09-16 15:51 | CON.PCM_ITS ---
Consultation - Renal 09/16/17 PCP/ Referring MD: Requesting physician: Reynaldo Lam Primary care physician: Leroy Marie Reason for Consultation:: FARIDEH on CKD stage 3 - History of Present Illness History of Present Illness: The patient is a 61 year old morbidly obese F resident of [facility] with multiple medical comorbidities admitted on 09/12 for right lateral foot infection with erythema and swelling past several days noted by [facility] staff and wound doctor last . The patient has peripheral neuropathy with decreased sensation in her right foot. She denied any right foot pain. She states that her boot was twisted in bed. She is sedentary, bedridden requiring Tenzin lift at the correction. She is nonweightbearing since her last hospitalization for right foot infection March 2017. She denies any fever or chills. She did have nausea, vomiting, diarrhea prior to last week. She had a history of poorly controlled type 2 diabetes mellitus on high doses of insulin status post left BKA around 4 years ago due to infection. Her A1c in March, was 7.9. She had a history of chronic kidney disease stage III likely due to diabetes with urinalysis showing proteinuria in the past. She had a baseline creatinine of 1.5-1.8 mg/dL in 2015 and 2016. Creatinine on admit was 3.40 potassium of 5.6. Creatinine is down to 3.1 today with potassium 4.9. She has been requiring Salgado catheter to continuous drainage for the past several weeks after seen by urology for diabetic bladder with urinary frequency, urgency, incontinence. She denied any recent urinary tract infections. She has not been seen by nephrology in the past. X-ray of the right foot showed soft tissue swelling, no acute findings, no evidence of osteomyelitis. She has been treated with IV Zosyn. She has no fever or chills. White count was unremarkable. Blood pressure is low normal. She is not on antihypertensive medications. Her Lasix has been discontinued since admission. There is no IV contrast exposure during hospitalization. She denied heart disease, stroke, [place]. FH significant for diabetes in her mother , brother, sister, maternal uncle, paternal uncle and GF. CAD in mother, maternal aunt. Cancer of the spleen and ovary in grandmother. No FH for renal failure. - Allergies Allergies: Allergies adhesive Allergy (Verified 09/12/17 16:21) Rash cefadroxil hydrate [From Duricef] Allergy (Verified 09/12/17 16:21) Rash cephalexin monohydrate [From Keflex] Allergy (Verified 09/12/17 16:21) Rash venom-honey bee [bee venom (honey bee)] Allergy (Verified 09/12/17 16:21) Rash - Current Medications Current Medications: Current Medications Acetaminophen (Tylenol) 650 mg PO Q6H PRN PRN PRN Reason: Mild Pain (scale 0-3)/T>100.7 Last Admin: 09/14/17 21:02 Dose: 650 mg Apixaban (Eliquis) 5 mg PO BID [facility] Last Admin: 09/16/17 10:16 Dose: 5 mg Bisacodyl (Dulcolax) 10 mg RECTAL DAILY PRN PRN PRN Reason: Constipation Calamine/Phenol (Calmoseptine Ointment) 1 applic TOPICAL 4X/DAY [facility] PRN Reason: Protocol Last Admin: 09/16/17 10:19 Dose: 1 applicatio Cilostazol (Pletal) 50 mg PO BIDAC [facility] Last Admin: 09/16/17 08:06 Dose: 50 mg Cyclobenzaprine HCl (Flexeril) 10 mg PO QHS PRN PRN Reason: PAIN Ferrous Sulfate (Ferrous Sulfate) 325 mg PO BIDCM [facility] Last Admin: 09/16/17 08:05 Dose: 325 mg Hydroxyzine Pamoate (Vistaril Pamoate Capsule) 25 mg PO DAILY [facility] Last Admin: 09/16/17 10:15 Dose: 25 mg Hydroxyzine Pamoate (Vistaril Pamoate Capsule) 50 mg PO QHS [facility] Last Admin: 09/15/17 22:35 Dose: 50 mg Piperacillin Sod/Tazobactam Sod (Zosyn) 3.375 gm in 50 mls @ 12.5 mls/hr IV Q12 [facility] Last Admin: 09/16/17 10:18 Dose: 12.5 mls/hr Insulin Glargine (Lantus (Bkc)) 25 units SC DAILY@0700 [facility] Insulin Glargine (Lantus (Bkc)) 25 units SC QHS [facility] Insulin Human Lispro (Humalog Kwikpen (Bkc)) 0 unit SQ ACHS [facility] PRN Reason: Protocol Last Admin: 09/16/17 12:55 Dose: Not Given Magnesium Hydroxide (Milk Of Magnesia) 30 ml PO DAILY PRN PRN PRN Reason: Constipation Ondansetron HCl (Zofran) 4 mg IV Q8H PRN PRN PRN Reason: Nausea Pravastatin Sodium (Pravachol) 10 mg PO QHS [facility] Last Admin: 09/15/17 22:36 Dose: 10 mg Quetiapine Fumarate (Seroquel) 200 mg PO QHS [facility] Last Admin: 09/15/17 22:35 Dose: 200 mg Sodium Chloride () 5 - 30 ml IV UD PRN PRN Reason: SALINE FLUSH Venlafaxine HCl (Effexor Xr) 225 mg PO DAILY [facility] Last Admin: 09/16/17 10:15 Dose: 225 mg - Past Medical History Past Medical History (Chronic Problems): Chronic Problems History of tobacco abuse (Chronic) HLD (hyperlipidemia) (Chronic) HTN (hypertension) (Chronic) Morbid obesity (Chronic) bmi 46 Noncompliance (Chronic) with diabetic therapy Personality disorder (Chronic) History of self-harm (Chronic) scratching and picking Self neglect (Chronic) Type 2 diabetes mellitus (Chronic) Bipolar disorder (Chronic) Anxiety (Chronic) 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 2 diabetes mellitus with diabetic polyneuropathy (Chronic) - Past Surgical History Surgical History: - - foot surgeries, right great toe, partial 2nd, 3rd toe amputation, left below the knee amputation - Social History Smoking Status: Former smoker Alcohol: None Drugs: None - Family History Maternal History Items: Diabetes, Heart Disease, Hypertension Paternal History Items: No pertinent history Sibling History Items: Diabetes Review of Systems Constitutional: Reports: Weakness. Denies: Anorexia, Chills, Fever Eyes: Denies: Vision Change HEENT: Denies: Head Aches Cardiovascular: Reports: Edema - history on lasix. Denies: Chest Pain Respiratory: Denies: Cough, Shortness of Breath Gastrointestinal: Denies: Abdominal Pain, Constipation, Diarrhea, Nausea, Vomiting Genitourinary: Reports: Frequency, Incontinence, Urgency, - - indwelling salgado catheter. Denies: Dysuria Musculoskeletal: Reports: - - left BKA Skin: Reports: Lesions - on arm, poultry picker, Wounds - right lateral foot Neurological: Reports: - - nonwt bearing, generalized weakness Psychiatric: Reports: Anxiety, - - bipolar disease Endocrine: Reports: Polyuria. Denies: Heat/ Cold Intolerance, Polydipsia Hematologic/ Lymphatic: Reports: Anemia. Denies: Hx of blood clot - Physical Exam General: Alert, Oriented x3, Cooperative, No apparent distress, - - morbidly obese HEENT: Atraumatic, PERRLA, EOMI Oral: Moist Mucosa Neck: Supple Lungs: Clear to auscultation Cardiovascular: Regular rate Abdomen: Bowel Sounds Present, Soft, Non Tender, Non-Distended, Obese - super, - - suboptimal exam Extremities: No edema, - - left BKA, rt great toe amputation, partial 2nd, 3rd toe amputation. Rt foot wrapped Skin: Ulcer/ Wound - right foot, wrapped, - - dime sized coin lesions on lateral arm from picking Musculoskeletal: No Tenderness to Palpation of Joints or Extremities Neurological: Cranial nerves II-XII grossly intact Psych/Mental Status: Normal Affect, Appropriate, Alert and oriented to time, place, person, mood and affect Vital Signs Temp Pulse Resp BP Pulse Ox 97.6 F L 85 16 113/80 96 09/16/17 08:00 09/16/17 08:00 09/16/17 08:00 09/16/17 08:00 09/16/17 08:00 Oxygen Delivery Method Room Air Weight: 155.7 kg Body Mass Index (BMI) 53.7 Intake and Output for Last 24 Hours 09/14/17 09/15/17 09/16/17 23:59 23:59 23:59 Intake Total 2911 / 2911 3551.5 / 3551.5 698.1 / 698.1 Output Total 2460 / 2460 2525 / 2525 1450 / 1450 Balance 451 / 451 1026.5 / 1026.5 -751.9 / -751.9 Laboratory Tests Past 24 Hrs 09/16/17 05:40 Sodium 138 Potassium 4.9 Chloride 111 H Carbon Dioxide 18.0 L Anion Gap 9 BUN 71 H Creatinine 3.11 H Estim Creat Clear Calc 18.94 Est GFR (MDRD) Af Amer 20 L Est GFR (MDRD) Non-Af 16 L BUN/Creatinine Ratio 22.8 H Glucose 55 L Calcium 8.3 L POC Glucose 09/16/17 09/16/17 09/16/17 11:23 08:01 07:15 POC Glucose 94 88 69 L 09/16/17 09/15/1709/15/18 06:57 22:32 16:14 POC Glucose 61 L 133 H 85 Clinical Impression(s) from Imaging Studies Foot X-Ray 09/12/17 17:20 IMPRESSION: Status post amputation of the right first toe. No fracture or dislocation. No definite radiographic findings of osteomyelitis. If concern persists, consider further evaluation with MRI. Soft tissue swelling. Electronically Signed: Sonny Weber, at 17:39 EDT Tel , Service support , Assessment/Plan All Active Problems Cellulitis of right foot (Acute) Type 2 diabetes mellitus with diabetic polyneuropathy (Acute) Diabetic ulcer of right foot (Acute) MSSA (methicillin susceptible Staphylococcus aureus) (Resolved) Mycotic cystitis (Resolved) Osteomyelitis (Resolved) 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 Acute on chronic kidney disease stage III. Baseline creatinine 1.5-1.8 in 2015, 2017. Creatinine 1.73 during last hospitalization in March 2017. Creatinine on admission 3.4 improved to 3.1 eGFR 16cc/min today. No urgency to initiate dialysis. Agree with discontinuation of Lasix since she does not have significant edema. Acute kidney component likely due to recent hospitalization for cellulitis and hypotension. No recent IV contrast exposure. Check renal ultrasound. Recently seen by urology who suggested indwelling Salgado catheter for urinary incontinence. Avoid nephrotoxins, eg NSAIDs, iv contrast. Renal dose antibx. 2. CKD stage 3 due to Diabetic nephropathy with urinalysis showing proteinuria in 2016. Check renal ultrasound, urine protein creatinine ratio. Check FENA 3. DM2 with neuropathy, left BKA for infection. Hx noncompliance. Check hgbA1C 4. Rt foot cellulitis on iv antibx. Afebrile without leukocytosis. CRP 75.5 ESR 24. Follow vanco levels while on vanco. Last vanco 14.5 on 09/14. 5. Hyperkalemia resolved. Discussed high potassium foods to avoid. Follow low K diet 6. Super morbid obesity/sedentary 7. Bipolar disease primary service mgmt
--- NOTE | 2017-09-16 15:52 | US_ITS ---
STUDY: RENAL ULTRASOUND - COMPLETE REASON FOR EXAM: Female, 61 years old. Acute renal failure TECHNIQUE: Ultrasound evaluation of the kidneys was performed with real-time and static gill-scale imaging. COMPARISON: None. FINDINGS: Study is limited due to patient condition and body habitus. RIGHT KIDNEY: Normal location of the right kidney, which is normal in size. The right kidney measures 11.1 x 6.0 x 6.7 cm. There is a normal cortex of the right kidney. The renal cortex measures 1.5 cm. There is no right renal mass or cyst. There are no right renal calculi. There is no right hydronephrosis. DISTAL RIGHT URETER: There is non-visualization of the distal right ureter. There is no demonstrated right ureterovesical junction calculus. There is no demonstrated right ureteral jet. LEFT KIDNEY: Normal location of the left kidney, which is normal in size. The left kidney measures 12.1 x 5.2 x 6.1 cm. There is a normal cortex of the left kidney. The renal cortex measures 1.6 cm. There is no left renal mass. There is a 3.3 cm lateral simple renal cyst. There are no left renal calculi. There is no left hydronephrosis. DISTAL LEFT URETER: There is non-visualization of the distal left ureter. There is no demonstrated left ureterovesical junction calculus. There is no demonstrated left ureteral jet. BLADDER: There is a Shay catheter in place. Bladder is collapsed and not evaluated. US/Kidney and Bladder IMPRESSION: Exophytic left renal cyst. No renal stones or hydronephrosis. No cortical thinning. Electronically Signed: Luisito Ramirez DO at 21:09 EDT , Service support ,
[2017-09-16 16:25] LABS: Bedside Glucose 129 mg/dL (70-110)
[2017-09-16 17:28] LABS: Urine Sodium 95 mmol/L (Not Establ.)
[2017-09-16 17:36] LABS: Color, Urine Yellow (Yellow); Glucose, Dipstick Normal (Normal); Ketone-Dipstick Negative (Negative); Leukocyte Esterase-Dipstick 500 /ul (Negative); Nitrite-Dipstick Negative (Negative); Occult Blood-Urine 50 /ul (Negative); Protein-Dipstick 100 mg/dl (Negative); Specific Gravity, Urine 1.015 (1.002-1.030); Urine Bilirubin Dipstick Negative (Negative); Urine Clarity Sl. Cloudy (Clear); Urine Urobilinogen Normal (Normal)
[2017-09-16 18:29] LABS: Red Blood Cells-Urine 5-10 SEEN /hpf (0-5); White Blood Cells 25-50 SEEN /hpf (0-5)
[2017-09-16 18:34] LABS: Squamous Epithelial Cells - UA 5-10 SEEN /hpf (5-10)
[2017-09-16 18:42] LABS: Bacteria 2+ /hpf (None Seen)
[2017-09-16 18:43] LABS: Fine Granular Cast- Urine 0-5 SEEN /lpf (0-5); Hyaline Cast 0-5 SEEN /lpf (0-5); Mucous, Urine 1+ /hpf (<or=2+)
[2017-09-16 20:56] VITALS: BP 144/78; PULSE 91; RESP 18; TEMP 36.8; O2SAT 96
[2017-09-16 22:05] LABS: Vancomycin, Random Level 20.4 ug/mL (0.0-15.0)
--- NOTE | 2017-09-16 22:14 | PCM.RX.CS ---
Consult Pharmacy has been consulted to manage selected antiobiotic: Vancomycin Type of Consult: Follow-up Suspected Infection: Skin/Soft tissue Labs: Sodium 138 mmol/L (136-145) 09/16/17 05:40 Potassium 4.9 mmol/L (3.5-5.1) 09/16/17 05:40 Chloride 111 mmol/L (98-107) H 09/16/17 05:40 Carbon Dioxide 18.0 mmol/L (21.0-32.0) L 09/16/17 05:40 Anion Gap 9 (5-15) 09/16/17 05:40 BUN 71 mg/dL (7-18) H 09/16/17 05:40 Creatinine 3.11 mg/dL (0.55-1.02) H 09/16/17 05:40 Est GFR (MDRD) Af Amer 20 mL/min (>60) L 09/16/17 05:40 Est GFR (MDRD) Non-Af 16 mL/min (>60) L 09/16/17 05:40 BUN/Creatinine Ratio 22.8 RATIO (10-20) H 09/16/17 05:40 Glucose 55 mg/dL (74-106) L 09/16/17 05:40 Random Vancomycin 20.4 ug/mL (0.0-15.0) H 09/16/17 20:40 Weight used for dosin.7 kg Estimated Creatinine Clearance: 18.9 Goal Trough: 10-15 mcg/mL Pharmacy Plan for Drug Dosing: Random level drawn 09/16/17 @2040 was 20.4, therefore no additional dose given. Follow up random level to be drawn in am. Pharmacy Service will continue to monitor and adjust dosing as required. Follow-Up Labs: Trough Vancomycin Labs to be done on [date and time ordered]: 09/17/17 @0600
[2017-09-16] MEDS: hydrOXYzine PAM 25 MG Capsule 50 MG PO (22:56)
[2017-09-16] MEDS: 0.9% NaCl Peripheral Flush Adult/Peds IV (22:56)
[2017-09-16] MEDS: Pravastatin 20 MG Tablet 10 MG PO (22:57)
[2017-09-16] MEDS: QUEtiapine 100 MG Tablet 200 MG PO (22:57)
[2017-09-16 23:10] LABS: Bedside Glucose 129 mg/dL (70-110)
[2017-09-16 23:24] LABS: Protein, Urine (Random) 114.6 mg/dL (<11.9)
[2017-09-17 03:00] VITALS: BP 96/55; PULSE 70; RESP 16; TEMP 36.4; O2SAT 95
[2017-09-17 06:12] LABS: Hematocrit 24.6 % (37-47); Hemoglobin 7.9 g/dl (12.0-15.0); Mean Corp Hgb Conc 32.1 g/gl (32-36); Mean Corpuscular Hgb 26.9 pg (27.0-32.0); Mean Corpuscular Volume 83.7 fL (81-99); Mean Platelet Vol. 9.2 fl (6.2-12.0); Platelet Count 312 K/mm3 (150-450); RBC Distribution Width CV 14.9 % (11.6-14.6); RBC Distribution Width SD 44.3 fl (35.1-43.9); Red Blood Count 2.94 M/mm3 (4.2-5.4)
[2017-09-17 06:15] LABS: Scan Indicated on CBC? Y/N NO
[2017-09-17 06:20] LABS: Anion Gap 9 (5-15); BUN 71 mg/dL (7-18); BUN/Creat Ratio 23.4 RATIO (10-20); Calcium,Total 8.1 mg/dL (8.5-10.1); Chloride 113 mmol/L (98-107); Creatinine, Serum 3.04 mg/dL (0.55-1.02); EST Glomerular Filtration Rate 17 mL/min (>60); Est Glom Filt Rate - Afr Amer 20 mL/min (>60); Estimated Creatinine Clearance 19.38 ml/min; Glucose 123 mg/dL (74-106); Magnesium 2.1 mg/dL (1.6-2.6); Sodium Level 141 mmol/L (136-145)
[2017-09-17 06:23] LABS: Vancomycin, Random Level 19.3 ug/mL (0.0-15.0)
[2017-09-17 06:46] LABS: Bedside Glucose 81 mg/dL (70-110)
--- NOTE | 2017-09-17 07:23 | PCM.RX.CS ---
Consult Pharmacy has been consulted to manage selected antiobiotic: Vancomycin Type of Consult: Follow-up Suspected Infection: Skin/Soft tissue Prior Doses of Antibiotics Received/Current Regimen: Vancomycin 2000mg IV x1 on 09/12/17 at 2050, and 2000mg on 09/14/17 at 2100. Labs: Sodium 141 mmol/L (136-145) 09/17/17 05:25 Potassium 5.0 mmol/L (3.5-5.1) 09/17/17 05:25 Chloride 113 mmol/L (98-107) H 09/17/17 05:25 Carbon Dioxide 19.0 mmol/L (21.0-32.0) L 09/17/17 05:25 Anion Gap 9 (5-15) 09/17/17 05:25 BUN 71 mg/dL (7-18) H 09/17/17 05:25 Creatinine 3.04 mg/dL (0.55-1.02) H 09/17/17 05:25 Est GFR (MDRD) Af Amer 20 mL/min (>60) L 09/17/17 05:25 Est GFR (MDRD) Non-Af 17 mL/min (>60) L 09/17/17 05:25 BUN/Creatinine Ratio 23.4 RATIO (10-20) H 09/17/17 05:25 Glucose 123 mg/dL (74-106) H 09/17/17 05:25 Random Vancomycin 19.3 ug/mL (0.0-15.0) H 09/17/17 05:25 Weight used for dosin kg Estimated Creatinine Clearance: 19ml/min Goal Trough: 10-15 mcg/mL Pharmacy Plan for Drug Dosing: Pt's random level came back at 19.3 on 09/17/17 at 0525. Recommend holding Vancomycin for 09/17/17 and drawing another random level 09/18/17 at 0600 Pharmacy Service will continue to monitor and adjust dosing as required. Follow-Up Labs: Trough Vancomycin - random level 09/18/17 at 0600 Labs to be done on [date and time ordered]: random level 09/18/17 at 0600
[2017-09-17 07:52] LABS: Hemoglobin A1c 7.2 % (4.2-6.3)
[2017-09-17] MEDS: Cilostazol 50 MG Tablet PO ×2 (08:26→17:28)
[2017-09-17] MEDS: Ferrous Sulfate 325 MG Tablet PO ×2 (08:27→17:29)
--- NOTE | 2017-09-17 08:29 | PCM.PROGNOTE ---
Subjective: Patient seen today for follow up right foot ulceration, cellulitis, and possible osteomyelitis. Patient with no new complaints. No fever or chills. - Physical Exam General: Alert, Oriented x3, Cooperative, No apparent distress Extremities: Capillary Refill Less than 3 Seconds, No Calf Tenderness, - - Ulceration plantar lateral 5th metatarsal head with fibrotic tissue, close to the bone, margins viable and intact, no undermining, cellulitis around the area is resolving and improving, there is no maloder, no visible abscess, no crepitus, no fluctuance present. Peripheral neuropathy present to the right foot, no evidence of acute ischemia - reviewed LEAS and patient with good arterial flow to right foot. Right hallux absent from previous surgery. Left BKA. Vital Signs Temp Pulse Resp BP Pulse Ox 97.5 F L 70 16 96/55 L 95 09/17/17 03:00 09/17/17 03:00 09/17/17 03:00 09/17/17 03:00 09/17/17 03:00 Oxygen Delivery Method Room Air Weight: 155.7 kg Body Mass Index (BMI) 53.7 Intake and Output for Last 24 Hours 09/15/17 09/16/17 09/17/17 23:59 23:59 23:59 Intake Total 3551.5 / 3551.5 698.1 / 698.1 200 / 200 Output Total 2525 / 2525 1450 / 1450 1700 / 1700 Balance 1026.5 / 1026.5 -751.9 / -751.9 -1500 / -1500 Laboratory Tests Past 24 Hrs 09/16/17 09/16/17 09/16/17 16:40 16:40 16:40 WBC RBC Hgb Hct MCV MCH MCHC RDW RDW Differential Plt Count MPV Sodium Potassium Chloride Carbon Dioxide Anion Gap BUN Creatinine Estim Creat Clear Calc Est GFR (MDRD) Af Amer Est GFR (MDRD) Non-Af BUN/Creatinine Ratio Glucose Hemoglobin A1c Calcium Magnesium Urine Color Urine Clarity Urine pH Ur Specific [place] Urine Protein Urine Glucose (UA) Urine Ketones Urine Occult Blood Urine Nitrite Urine Bilirubin Urine Urobilinogen Ur Leukocyte Esterase Urine RBC Urine WBC Ur Squamous Epith Cells Urine Bacteria Hyaline Casts Fine Granular Casts Urine Mucus U Random Total Protein 114.6 H Ur Random Sodium 95 Urine Creatinine 32.00 Random Vancomycin 06/09/16/17 09/17/17 16:40 20:40 05:25 WBC RBC Hgb Hct MCV MCH MCHC RDW RDW Differential Plt Count MPV Sodium 141 Potassium 5.0 Chloride 113 H Carbon Dioxide 19.0 L Anion Gap 9 BUN 71 H Creatinine 3.04 H Estim Creat Clear Calc 19.38 Est GFR (MDRD) Af Amer 20 L Est GFR (MDRD) Non-Af 17 L BUN/Creatinine Ratio 23.4 H Glucose 123 H Hemoglobin A1c Calcium 8.1 L Magnesium 2.1 Urine Color Yellow Urine Clarity Sl. Cloudy Urine pH 5.0 Ur Specific [place] 1.015 Urine Protein 100 H Urine Glucose (UA) Normal Urine Ketones Negative Urine Occult Blood 50 H Urine Nitrite Negative Urine Bilirubin Negative Urine Urobilinogen Normal Ur Leukocyte Esterase 500 H Urine RBC 5-10 SEEN Urine WBC 25-50 SEEN Ur Squamous Epith Cells 5-10 SEEN Urine Bacteria 2+ Hyaline Casts 0-5 SEEN Fine Granular Casts 0-5 SEEN Urine Mucus 1+ U Random Total Protein Ur Random Sodium Urine Creatinine Random Vancomycin 20.4 H 09/17/17 09/17/17 09/17/17 05:25 05:25 05:25 WBC 9.0 RBC 2.94 L Hgb 7.9 L Hct 24.6 L MCV 83.7 MCH 26.9 L MCHC 32.1 RDW 14.9 H RDW Differential 44.3 H Plt Count 312 MPV 9.2 Sodium Potassium Chloride Carbon Dioxide Anion Gap BUN Creatinine Estim Creat Clear Calc Est GFR (MDRD) Af Amer Est GFR (MDRD) Non-Af BUN/Creatinine Ratio Glucose Hemoglobin A1c 7.2 H Calcium Magnesium Urine Color Urine Clarity Urine pH Ur Specific [place] Urine Protein Urine Glucose (UA) Urine Ketones Urine Occult Blood Urine Nitrite Urine Bilirubin Urine Urobilinogen Ur Leukocyte Esterase Urine RBC Urine WBC Ur Squamous Epith Cells Urine Bacteria Hyaline Casts Fine Granular Casts Urine Mucus U Random Total Protein Ur Random Sodium Urine Creatinine Random Vancomycin 19.3 H POC Glucose 09/17/17 09/16/17 09/16/17 06:36 22:52 16:19 POC Glucose 81 129 H 129 H 09/16/17 11:23 POC Glucose 94 Medical Necessity - Tobacco Use Smoking Status: Former smoker Assessment/Plan All Active Problems Cellulitis of right foot (Acute) Type 2 diabetes mellitus with diabetic polyneuropathy (Acute) Diabetic ulcer of right foot (Acute) MSSA (methicillin susceptible Staphylococcus aureus) (Resolved) Mycotic cystitis (Resolved) Osteomyelitis (Resolved) Osteomyelitis due to secondary diabetes (Resolved) Ulcer with fat layer exposed to right lateral foot Cellulitis right foot-improving - possible osteomyelitis DM with neuropathy Patient received right foot MRI yesterday afternoon. I did review the images and concern osteomyelitis 5th metatarsal, radiology also confirms findings a suggestive of osteomyelitis. Discussed options with patient, discussed surgical options vs nonsurgical. Will review with Infectious Disease. Continue with local wound care - dressing changes with aquacel ag, 4x4s, kerlix, and bere dressing. Continue with offloading at all times - continue with her padded offloading boot with her from her residential. No weight to right foot. Podiatry will continue to follow.
--- NOTE | 2017-09-17 08:32 | PN_ITS ---
Subjective: Patient seen today for follow up right foot ulceration, cellulitis, and possible osteomyelitis. Patient with no new complaints. No fever or chills. - Physical Exam General: Alert, Oriented x3, Cooperative, No apparent distress Extremities: Capillary Refill Less than 3 Seconds, No Calf Tenderness, - - Ulceration plantar lateral 5th metatarsal head with fibrotic tissue, close to the bone, margins viable and intact, no undermining, cellulitis around the area is resolving and improving, there is no maloder, no visible abscess, no crepitus , no fluctuance present. Peripheral neuropathy present to the right foot, no evidence of acute ischemia - reviewed LEAS and patient with good arterial flow to right foot. Right hallux absent from previous surgery. Left BKA. Vital Signs Temp Pulse Resp BP Pulse Ox 97.5 F L 70 16 96/55 L 95 09/17/17 03:00 09/17/17 03:00 09/17/17 03:00 09/17/17 03:00 09/17/17 03:00 Oxygen Delivery Method Room Air Weight: 155.7 kg Body Mass Index (BMI) 53.7 Intake and Output for Last 24 Hours 09/15/17 09/16/17 09/17/17 23:59 23:59 23:59 Intake Total 3551.5 / 3551.5 698.1 / 698.1 200 / 200 Output Total 2525 / 2525 1450 / 1450 1700 / 1700 Balance 1026.5 / 1026.5 -751.9 / -751.9 -1500 / -1500 Laboratory Tests Past 24 Hrs 09/16/17 09/16/17 09/16/17 16:40 16:40 16:40 WBC RBC Hgb Hct MCV MCH MCHC RDW RDW Differential Plt Count MPV Sodium Potassium Chloride Carbon Dioxide Anion Gap BUN Creatinine Estim Creat Clear Calc Est GFR (MDRD) Af Amer Est GFR (MDRD) Non-Af BUN/Creatinine Ratio Glucose Hemoglobin A1c Calcium Magnesium Urine Color Urine Clarity Urine pH Ur Specific [place] Urine Protein Urine Glucose (UA) Urine Ketones Urine Occult Blood Urine Nitrite Urine Bilirubin Urine Urobilinogen Ur Leukocyte Esterase Urine RBC Urine WBC Ur Squamous Epith Cells Urine Bacteria Hyaline Casts Fine Granular Casts Urine Mucus U Random Total Protein 114.6 H Ur Random Sodium 95 Urine Creatinine 32.00 Random Vancomycin 06/09/16/17 09/17/17 16:40 20:40 05:25 WBC RBC Hgb Hct MCV MCH MCHC RDW RDW Differential Plt Count MPV Sodium 141 Potassium 5.0 Chloride 113 H Carbon Dioxide 19.0 L Anion Gap 9 BUN 71 H Creatinine 3.04 H Estim Creat Clear Calc 19.38 Est GFR (MDRD) Af Amer 20 L Est GFR (MDRD) Non-Af 17 L BUN/Creatinine Ratio 23.4 H Glucose 123 H Hemoglobin A1c Calcium 8.1 L Magnesium 2.1 Urine Color Yellow Urine Clarity Sl. Cloudy Urine pH 5.0 Ur Specific [place] 1.015 Urine Protein 100 H Urine Glucose (UA) Normal Urine Ketones Negative Urine Occult Blood 50 H Urine Nitrite Negative Urine Bilirubin Negative Urine Urobilinogen Normal Ur Leukocyte Esterase 500 H Urine RBC 5-10 SEEN Urine WBC 25-50 SEEN Ur Squamous Epith Cells 5-10 SEEN Urine Bacteria 2+ Hyaline Casts 0-5 SEEN Fine Granular Casts 0-5 SEEN Urine Mucus 1+ U Random Total Protein Ur Random Sodium Urine Creatinine Random Vancomycin 20.4 H 09/17/17 09/17/17 09/17/17 05:25 05:25 05:25 WBC 9.0 RBC 2.94 L Hgb 7.9 L Hct 24.6 L MCV 83.7 MCH 26.9 L MCHC 32.1 RDW 14.9 H RDW Differential 44.3 H Plt Count 312 MPV 9.2 Sodium Potassium Chloride Carbon Dioxide Anion Gap BUN Creatinine Estim Creat Clear Calc Est GFR (MDRD) Af Amer Est GFR (MDRD) Non-Af BUN/Creatinine Ratio Glucose Hemoglobin A1c 7.2 H Calcium Magnesium Urine Color Urine Clarity Urine pH Ur Specific [place] Urine Protein Urine Glucose (UA) Urine Ketones Urine Occult Blood Urine Nitrite Urine Bilirubin Urine Urobilinogen Ur Leukocyte Esterase Urine RBC Urine WBC Ur Squamous Epith Cells Urine Bacteria Hyaline Casts Fine Granular Casts Urine Mucus U Random Total Protein Ur Random Sodium Urine Creatinine Random Vancomycin 19.3 H POC Glucose 09/17/17 09/16/17 09/16/17 06:36 22:52 16:19 POC Glucose 81 129 H 129 H 09/16/17 11:23 POC Glucose 94 Medical Necessity - Tobacco Use Smoking Status: Former smoker Assessment/Plan All Active Problems Cellulitis of right foot (Acute) Type 2 diabetes mellitus with diabetic polyneuropathy (Acute) Diabetic ulcer of right foot (Acute) MSSA (methicillin susceptible Staphylococcus aureus) (Resolved) Mycotic cystitis (Resolved) Osteomyelitis (Resolved) Osteomyelitis due to secondary diabetes (Resolved) Ulcer with fat layer exposed to right lateral foot Cellulitis right foot-improving - possible osteomyelitis DM with neuropathy Patient received right foot MRI yesterday afternoon. I did review the images and concern osteomyelitis 5th metatarsal, radiology also confirms findings a suggestive of osteomyelitis. Discussed options with patient, discussed surgical options vs nonsurgical. Will review with Infectious Disease. Continue with local wound care - dressing changes with aquacel ag, 4x4s, kerlix , and bere dressing. Continue with offloading at all times - continue with her padded offloading boot with her from her correction. No weight to right foot. Podiatry will continue to follow.
[2017-09-17 09:00] VITALS: BP 107/68; PULSE 81; RESP 18; TEMP 36.8; O2SAT 98
[2017-09-17] MEDS: Piperacil/Tazobactam 3.375 GM/50 ML ML IV ×2 (10:38→22:41)
[2017-09-17] MEDS: Venlafaxine XR 75 MG Capsule 225 MG PO (10:40)
[2017-09-17] MEDS: hydrOXYzine PAM 25 MG Capsule PO (10:40)
[2017-09-17] MEDS: Menthol/Lanolin/Calamine/Znox 113 GM Tube 1 APPLIC TOPICAL ×4 (10:41→20:49)
[2017-09-17] MEDS: APIXABAN 5 MG TABLET PO ×2 (10:41→20:48)
--- NOTE | 2017-09-17 10:44 | PCM.PN.ID ---
Subjective: No fever, feeling ok, no n/v/d. - Physical Exam General: Alert, Cooperative, No apparent distress Lungs: Clear to auscultation, Normal air movement Cardiovascular: Regular rate, Regular Rhythm Abdomen: Soft, Non Tender, Non-Distended Skin: Ulcer/ Wound - R foot wrapped Vital Signs Temp Pulse Resp BP Pulse Ox 97.5 F L 70 16 96/55 L 95 09/17/17 03:00 09/17/17 03:00 09/17/17 03:00 09/17/17 03:00 09/17/17 03:00 Oxygen Delivery Method Room Air Weight: 155.7 kg Body Mass Index (BMI) 53.7 Intake and Output for Last 24 Hours 09/15/17 09/16/17 09/17/17 23:59 23:59 23:59 Intake Total 3551.5 / 3551.5 698.1 / 698.1 200 / 200 Output Total 2525 / 2525 1450 / 1450 1700 / 1700 Balance 1026.5 / 1026.5 -751.9 / -751.9 -1500 / -1500 Laboratory Tests Past 24 Hrs 09/16/17 09/16/17 09/16/17 16:40 16:40 16:40 WBC RBC Hgb Hct MCV MCH MCHC RDW RDW Differential Plt Count MPV Sodium Potassium Chloride Carbon Dioxide Anion Gap BUN Creatinine Estim Creat Clear Calc Est GFR (MDRD) Af Amer Est GFR (MDRD) Non-Af BUN/Creatinine Ratio Glucose Hemoglobin A1c Calcium Magnesium Urine Color Urine Clarity Urine pH Ur Specific [place] Urine Protein Urine Glucose (UA) Urine Ketones Urine Occult Blood Urine Nitrite Urine Bilirubin Urine Urobilinogen Ur Leukocyte Esterase Urine RBC Urine WBC Ur Squamous Epith Cells Urine Bacteria Hyaline Casts Fine Granular Casts Urine Mucus U Random Total Protein 114.6 H Ur Random Sodium 95 Urine Creatinine 32.00 Random Vancomycin 09/16/17 09/16/17 09/17/17 16:40 20:40 05:25 WBC RBC Hgb Hct MCV MCH MCHC RDW RDW Differential Plt Count MPV Sodium 141 Potassium 5.0 Chloride 113 H Carbon Dioxide 19.0 L Anion Gap 9 BUN 71 H Creatinine 3.04 H Estim Creat Clear Calc 19.38 Est GFR (MDRD) Af Amer 20 L Est GFR (MDRD) Non-Af 17 L BUN/Creatinine Ratio 23.4 H Glucose 123 H Hemoglobin A1c Calcium 8.1 L Magnesium 2.1 Urine Color Yellow Urine Clarity Sl. Cloudy Urine pH 5.0 Ur Specific [place] 1.015 Urine Protein 100 H Urine Glucose (UA) Normal Urine Ketones Negative Urine Occult Blood 50 H Urine Nitrite Negative Urine Bilirubin Negative Urine Urobilinogen Normal Ur Leukocyte Esterase 500 H Urine RBC 5-10 SEEN Urine WBC 25-50 SEEN Ur Squamous Epith Cells 5-10 SEEN Urine Bacteria 2+ Hyaline Casts 0-5 SEEN Fine Granular Casts 0-5 SEEN Urine Mucus 1+ U Random Total Protein Ur Random Sodium Urine Creatinine Random Vancomycin 20.4 H 09/17/17 09/17/17 09/17/17 05:25 05:25 05:25 WBC 9.0 RBC 2.94 L Hgb 7.9 L Hct 24.6 L MCV 83.7 MCH 26.9 L MCHC 32.1 RDW 14.9 H RDW Differential 44.3 H Plt Count 312 MPV 9.2 Sodium Potassium Chloride Carbon Dioxide Anion Gap BUN Creatinine Estim Creat Clear Calc Est GFR (MDRD) Af Amer Est GFR (MDRD) Non-Af BUN/Creatinine Ratio Glucose Hemoglobin A1c 7.2 H Calcium Magnesium Urine Color Urine Clarity Urine pH Ur Specific [place] Urine Protein Urine Glucose (UA) Urine Ketones Urine Occult Blood Urine Nitrite Urine Bilirubin Urine Urobilinogen Ur Leukocyte Esterase Urine RBC Urine WBC Ur Squamous Epith Cells Urine Bacteria Hyaline Casts Fine Granular Casts Urine Mucus U Random Total Protein Ur Random Sodium Urine Creatinine Random Vancomycin 19.3 H POC Glucose 09/17/17 09/16/17 09/16/17 06:36 22:52 16:19 POC Glucose 81 129 H 129 H 09/16/17 11:23 POC Glucose 94 Medical Necessity - Tobacco Use Smoking Status: Former smoker Route of nutrition/ use of supplements: [] Nutritional Intake: [] IV Site: [] Shay Catheter: [] - Assessment/Plan Antibiotics: [] Assessment/Plan: [] R DM foot osteo due to MSSA - h/o peripheral neuropathy and prior L BKA. Continue zosyn. Cxs with mssa, enterococcus, and morganella. Will need 6-8 week course of iv abx. Given FARIDEH on CKD, would recommend central senior living catheter instead of a picc. Will follow, d/w Dr. Conde
[2017-09-17 12:26] LABS: Bedside Glucose 140 mg/dL (70-110)
[2017-09-17 12:33] LABS: Bedside Glucose 190 mg/dL (70-110)
--- NOTE | 2017-09-17 14:50 | PCM.PN.REN ---
Subjective: no nausea, vomiting, shortness of breath. Continued off lasix. Creatinine slightly improved. No uremic symptoms - Physical Exam General: Alert, Oriented x3, Cooperative, No apparent distress Lungs: Clear to auscultation Cardiovascular: Regular rate Abdomen: Bowel Sounds Present, Soft, Non Tender, Non-Distended, Obese Extremities: No edema, - - left BKA Skin: Ulcer/ Wound - rt foot Musculoskeletal: No Muscle Wasting Neurological: Cranial nerves II-XII grossly intact, - - no tremors Psych/Mental Status: Normal Affect, Appropriate, Alert and oriented to time, place, person, mood and affect Vital Signs Temp Pulse Resp BP Pulse Ox 98.3 F 81 18 107/68 98 09/17/17 09:00 09/17/17 09:00 09/17/17 09:00 09/17/17 09:00 09/17/17 09:00 Oxygen Delivery Method Room Air Weight: 155.7 kg Body Mass Index (BMI) 53.7 Intake and Output for Last 24 Hours 09/15/17 09/16/17 09/17/17 23:59 23:59 23:59 Intake Total 3551.5 / 3551.5 698.1 / 698.1 800 / 800 Output Total 2525 / 2525 1450 / 1450 2100 / 2100 Balance 1026.5 / 1026.5 -751.9 / -751.9 -1300 / -1300 Laboratory Tests Past 24 Hrs 09/16/17 09/16/17 09/16/17 16:40 16:40 16:40 WBC RBC Hgb Hct MCV MCH MCHC RDW RDW Differential Plt Count MPV Sodium Potassium Chloride Carbon Dioxide Anion Gap BUN Creatinine Estim Creat Clear Calc Est GFR (MDRD) Af Amer Est GFR (MDRD) Non-Af BUN/Creatinine Ratio Glucose Hemoglobin A1c Calcium Magnesium Urine Color Urine Clarity Urine pH Ur Specific [place] Urine Protein Urine Glucose (UA) Urine Ketones Urine Occult Blood Urine Nitrite Urine Bilirubin Urine Urobilinogen Ur Leukocyte Esterase Urine RBC Urine WBC Ur Squamous Epith Cells Urine Bacteria Hyaline Casts Fine Granular Casts Urine Mucus U Random Total Protein 114.6 H Ur Random Sodium 95 Urine Creatinine 32.00 Random Vancomycin 09/16/17 09/16/17 09/17/17 16:40 20:40 05:25 WBC RBC Hgb Hct MCV MCH MCHC RDW RDW Differential Plt Count MPV Sodium 141 Potassium 5.0 Chloride 113 H Carbon Dioxide 19.0 L Anion Gap 9 BUN 71 H Creatinine 3.04 H Estim Creat Clear Calc 19.38 Est GFR (MDRD) Af Amer 20 L Est GFR (MDRD) Non-Af 17 L BUN/Creatinine Ratio 23.4 H Glucose 123 H Hemoglobin A1c Calcium 8.1 L Magnesium 2.1 Urine Color Yellow Urine Clarity Sl. Cloudy Urine pH 5.0 Ur Specific [place] 1.015 Urine Protein 100 H Urine Glucose (UA) Normal Urine Ketones Negative Urine Occult Blood 50 H Urine Nitrite Negative Urine Bilirubin Negative Urine Urobilinogen Normal Ur Leukocyte Esterase 500 H Urine RBC 5-10 SEEN Urine WBC 25-50 SEEN Ur Squamous Epith Cells 5-10 SEEN Urine Bacteria 2+ Hyaline Casts 0-5 SEEN Fine Granular Casts 0-5 SEEN Urine Mucus 1+ U Random Total Protein Ur Random Sodium Urine Creatinine Random Vancomycin 20.4 H 09/17/17 09/17/17 09/17/17 05:25 05:25 05:25 WBC 9.0 RBC 2.94 L Hgb 7.9 L Hct 24.6 L MCV 83.7 MCH 26.9 L MCHC 32.1 RDW 14.9 H RDW Differential 44.3 H Plt Count 312 MPV 9.2 Sodium Potassium Chloride Carbon Dioxide Anion Gap BUN Creatinine Estim Creat Clear Calc Est GFR (MDRD) Af Amer Est GFR (MDRD) Non-Af BUN/Creatinine Ratio Glucose Hemoglobin A1c 7.2 H Calcium Magnesium Urine Color Urine Clarity Urine pH Ur Specific [place] Urine Protein Urine Glucose (UA) Urine Ketones Urine Occult Blood Urine Nitrite Urine Bilirubin Urine Urobilinogen Ur Leukocyte Esterase Urine RBC Urine WBC Ur Squamous Epith Cells Urine Bacteria Hyaline Casts Fine Granular Casts Urine Mucus U Random Total Protein Ur Random Sodium Urine Creatinine Random Vancomycin 19.3 H POC Glucose 09/17/17 09/17/17 09/16/17 12:19 06:36 22:52 POC Glucose 140 H 81 129 H 09/16/17 09/12/17 16:19 22:47 POC Glucose 129 H 190 H Medical Necessity - Tobacco Use Smoking Status: Former smoker Assessment/Plan All Active Problems Cellulitis of right foot (Acute) Type 2 diabetes mellitus with diabetic polyneuropathy (Acute) Diabetic ulcer of right foot (Acute) MSSA (methicillin susceptible Staphylococcus aureus) (Resolved) Mycotic cystitis (Resolved) Osteomyelitis (Resolved) 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 Acute on chronic kidney disease stage III. Baseline creatinine 1.5-1.8 in 2016, 2017. Creatinine 1.73 during last hospitalization in March 2017. Creatinine on admission 3.4 improved to 3.2 eGFR 17cc/min today. No urgency to initiate dialysis. Agree with discontinuation of Lasix. Has chronic indwelling Shay catheter for urinary incontinence. 2. CKD stage 3 due to Diabetic nephropathy with urinalysis showing proteinuria in 2016. renal ultrasound no hydro. urine protein creatinine ratio 3.56. suggest ARB when renal fxn back to baseline. FENA >1 3. DM2 with neuropathy, left BKA for infection. Hx noncompliance. Check hgbA1C 4. Rt foot cellulitis on iv antibx. Afebrile without leukocytosis. CRP 75.5 ESR 24. Ok for peripheral PICC. Prefer tunneled picc line but not available here. 5. Hyperkalemia resolved. Discussed high potassium foods to avoid. Follow low K diet 6. Super morbid obesity/sedentary 7. Bipolar disease primary service mgmt
[2017-09-17 15:25] VITALS: BP 123/73; PULSE 90; RESP 18; TEMP 37.2; O2SAT 98
[2017-09-17] MEDS: Insulin Lispro 100 UNIT/ML INSULN.PEN SQ ×2 (17:28→20:48)
[2017-09-17 17:35] LABS: Bedside Glucose 159 mg/dL (70-110)
--- NOTE | 2017-09-17 20:25 | PCM.PROGNOTE ---
Subjective: She is seen and examined today, the PICC line was inserted after I talked with nephrology concerning this procedure, infectious diseases recommended either a central line or PICC line today, I believe that it is not in the patient's best interest to go to a group home with a central line in place. Nephrology agreed that it was okay for PICC line placement. Patient will need to be on antibiotics for a minimum of 4 weeks according to ID for osteomyelitis of her right foot. - Physical Exam General: Alert, Oriented x3, Cooperative, No apparent distress, Well developed, Well nourished HEENT: Atraumatic, PERRLA, EOMI, Normocephalic Oral: Moist Mucosa Neck: Supple, No JVD, Negative Carotid Bruits, No Nuchal Rigidity, Trachea Midline, Thyroid Normal Size and Texture Lungs: Clear to auscultation, Normal air movement, No rhonchi, No wheeze Cardiovascular: Regular rate, Regular Rhythm, Normal S1, Normal S2, No murmurs, No Ectopic Activity, PMI Normal, No rub noted, No Gallop Abdomen: Bowel Sounds Present, Soft, Non Tender, Non-Distended, Obese Skin: Ulcer/ Wound - There is no ulceration noted on the plantar lateral aspect of the fifth metatarsal head with fibrotic tissue Neurological: Cranial nerves II-XII grossly intact, Neuro grossly intact Psych/Mental Status: Normal Affect, Appropriate, Alert and oriented to time, place, person, mood and affect Vital Signs Temp Pulse Resp BP Pulse Ox 98.9 F 90 18 123/73 H 98 09/17/17 15:25 09/17/17 15:25 09/17/17 15:25 09/17/17 15:25 09/17/17 15:25 Oxygen Delivery Method Room Air Weight: 155.7 kg Body Mass Index (BMI) 53.7 Intake and Output for Last 24 Hours 09/15/17 09/16/17 09/17/17 23:59 23:59 23:59 Intake Total 3551.5 / 3551.5 698.1 / 698.1 1550 / 1550 Output Total 2525 / 2525 1450 / 1450 3050 / 3050 Balance 1026.5 / 1026.5 -751.9 / -751.9 -1500 / -1500 Laboratory Tests Past 24 Hrs 09/16/17 09/16/17 09/17/17 16:40 20:40 05:25 WBC RBC Hgb Hct MCV MCH MCHC RDW RDW Differential Plt Count MPV Sodium 141 Potassium 5.0 Chloride 113 H Carbon Dioxide 19.0 L Anion Gap 9 BUN 71 H Creatinine 3.04 H Estim Creat Clear Calc 19.38 Est GFR (MDRD) Af Amer 20 L Est GFR (MDRD) Non-Af 17 L BUN/Creatinine Ratio 23.4 H Glucose 123 H Hemoglobin A1c Calcium 8.1 L Magnesium 2.1 U Random Total Protein 114.6 H Random Vancomycin 20.4 H 09/17/17 09/17/17 09/17/17 05:25 05:25 05:25 WBC 9.0 RBC 2.94 L Hgb 7.9 L Hct 24.6 L MCV 83.7 MCH 26.9 L MCHC 32.1 RDW 14.9 H RDW Differential 44.3 H Plt Count 312 MPV 9.2 Sodium Potassium Chloride Carbon Dioxide Anion Gap BUN Creatinine Estim Creat Clear Calc Est GFR (MDRD) Af Amer Est GFR (MDRD) Non-Af BUN/Creatinine Ratio Glucose Hemoglobin A1c 7.2 H Calcium Magnesium U Random Total Protein Random Vancomycin 19.3 H POC Glucose 09/17/17 09/17/17 09/17/17 17:25 12:19 06:36 POC Glucose 159 H 140 H 81 09/16/17 09/12/17 22:52 22:47 POC Glucose 129 H 190 H Medical Necessity - Tobacco Use Smoking Status: Former smoker Assessment/Plan All Active Problems Osteomyelitis of foot, right, acute (Acute) Cellulitis of right foot (Acute) Type 2 diabetes mellitus with diabetic polyneuropathy (Acute) Diabetic ulcer of right foot (Acute) MSSA (methicillin susceptible Staphylococcus aureus) (Resolved) Mycotic cystitis (Resolved) Osteomyelitis (Resolved) Osteomyelitis due to secondary diabetes (Resolved) #1 right foot osteomyelitis due to MSSA - patient had PICC line inserted today, antibiotics per infectious diseases #2 peripheral neuropathy secondary to type 2 diabetes #3 acute on chronic kidney failure #4 bipolar disorder #5 type 2 diabetes #6 morbid obesity #7 hypertension Code Visit Inpatient E&M: 46081 Subs Hosp L2
[2017-09-17 20:30] VITALS: BP 130/69; PULSE 94; RESP 18; TEMP 36.9; O2SAT 99
[2017-09-17] MEDS: hydrOXYzine PAM 25 MG Capsule 50 MG PO (20:48)
[2017-09-17] MEDS: Pravastatin 20 MG Tablet 10 MG PO (20:48)
[2017-09-17] MEDS: 0.9% NaCl Peripheral Flush Adult/Peds IV (22:41)
[2017-09-17] MEDS: QUEtiapine 100 MG Tablet 200 MG PO (22:41)
[2017-09-17 23:00] VITALS: BP 142/81; PULSE 92; RESP 18; TEMP 36.7; O2SAT 97
[2017-09-17 23:11] LABS: Bedside Glucose 188 mg/dL (70-110)
[2017-09-18 02:00] VITALS: RESP 18
--- NOTE | 2017-09-18 02:55 | NURSING ---
Noticed that pt had random Vanc level for this am. Pt is no longer on Vanc. I contacted Ernie in Pharmacy and he verified that pt is no longer receiving Vanc and will discontinue order for Vanc level.
[2017-09-18 05:14] LABS: Hematocrit 24.7 % (37-47); Hemoglobin 7.8 g/dl (12.0-15.0); Mean Corp Hgb Conc 31.6 g/gl (32-36); Mean Corpuscular Hgb 26.4 pg (27.0-32.0); Mean Corpuscular Volume 83.7 fL (81-99); Mean Platelet Vol. 8.8 fl (6.2-12.0); Platelet Count 316 K/mm3 (150-450); RBC Distribution Width CV 14.9 % (11.6-14.6); RBC Distribution Width SD 43.8 fl (35.1-43.9); Red Blood Count 2.95 M/mm3 (4.2-5.4); White Blood Count 10.1 K/mm3 (4.4-11.0)
[2017-09-18 05:17] LABS: Scan Indicated on CBC? Y/N NO
[2017-09-18 05:30] VITALS: BP 95/48; PULSE 86; RESP 18; TEMP 36.7; O2SAT 97
[2017-09-18] MEDS: 0.9% NaCl Peripheral Flush Adult/Peds IV ×3 (05:36→10:45)
[2017-09-18 05:40] LABS: Anion Gap 9 (5-15); BUN 75 mg/dL (7-18); BUN/Creat Ratio 25.2 RATIO (10-20); Chloride 112 mmol/L (98-107); Creatinine, Serum 2.98 mg/dL (0.55-1.02); EST Glomerular Filtration Rate 17 mL/min (>60); Est Glom Filt Rate - Afr Amer 21 mL/min (>60); Estimated Creatinine Clearance 19.77 ml/min; Glucose 150 mg/dL (74-106); Potassium 4.9 mmol/L (3.5-5.1); Sodium Level 141 mmol/L (136-145)
[2017-09-18 06:41] LABS: Bedside Glucose 133 mg/dL (70-110)
[2017-09-18 08:15] VITALS: BP 106/68; PULSE 82; RESP 16; TEMP 36.4; O2SAT 96
[2017-09-18] MEDS: Ferrous Sulfate 325 MG Tablet PO ×2 (08:28→16:53)
[2017-09-18] MEDS: Venlafaxine XR 75 MG Capsule 225 MG PO (08:29)
[2017-09-18] MEDS: hydrOXYzine PAM 25 MG Capsule PO (08:29)
[2017-09-18] MEDS: Cilostazol 50 MG Tablet PO ×2 (08:29→16:53)
[2017-09-18] MEDS: APIXABAN 5 MG TABLET PO (08:30)
[2017-09-18] MEDS: Menthol/Lanolin/Calamine/Znox 113 GM Tube 1 APPLIC TOPICAL (08:32)
--- NOTE | 2017-09-18 09:02 | CASEMGMT ---
Social Work Note STEPHAN spoke with Dr. Riley. Dr. Riley states that he will be discharging pt today. STEPHAN placed a call to Kayley ROTHMAN at [facility] and updated her that pt will be discharged today. Kayley asked this worker for updated clinicals on pt. STEPHAN faxed updated clinicals. STEPHAN will fax discharge paperwork when completed and set up transportation. Plan: Discharge to [facility] today Anette Long ORNAMENTAL METALWORK DESIGNER, PASTER OPERATOR
--- NOTE | 2017-09-18 09:09 | PCM.PN.REN ---
Subjective: denies foot pain, rt foot wrapped. No SOB - Physical Exam General: Alert, Oriented x3, Cooperative, No apparent distress Neck: Supple Lungs: Clear to auscultation Cardiovascular: Regular rate Abdomen: Bowel Sounds Present, Soft, Non Tender, Obese Extremities: Edema - trace Musculoskeletal: - - left BKA Psych/Mental Status: Alert and oriented to time, place, person, mood and affect Vital Signs Temp Pulse Resp BP Pulse Ox 97.6 F L 82 16 106/68 96 09/18/17 08:15 09/18/17 08:15 09/18/17 08:15 09/18/17 08:15 09/18/17 08:15 Oxygen Delivery Method Room Air Weight: 155.7 kg Body Mass Index (BMI) 53.7 Intake and Output for Last 24 Hours 09/16/17 09/17/17 09/18/17 23:59 23:59 23:59 Intake Total 698.1 / 698.1 2049 / 2049 Output Total 1450 / 1450 3900 / 3900 550 / 550 Balance -751.9 / -751.9 -1850 / -1850 -550 / -550 Laboratory Tests Past 24 Hrs 09/18/17 09/18/17 04:55 04:55 WBC 10.1 RBC 2.95 L Hgb 7.8 L Hct 24.7 L MCV 83.7 MCH 26.4 L MCHC 31.6 L RDW 14.9 H RDW Differential 43.8 Plt Count 316 MPV 8.8 Sodium 141 Potassium 4.9 Chloride 112 H Carbon Dioxide 20.0 L Anion Gap 9 BUN 75 H Creatinine 2.98 H Estim Creat Clear Calc 19.77 Est GFR (MDRD) Af Amer 21 L Est GFR (MDRD) Non-Af 17 L BUN/Creatinine Ratio 25.2 H Glucose 150 H Calcium 8.0 L POC Glucose 09/18/17 09/17/17 09/17/17 06:35 20:45 17:25 POC Glucose 133 H 188 H 159 H 09/17/17 09/12/17 12:19 22:47 POC Glucose 140 H 190 H Medical Necessity - Tobacco Use Smoking Status: Former smoker Assessment/Plan All Active Problems Cellulitis of right foot (Acute) Type 2 diabetes mellitus with diabetic polyneuropathy (Acute) Diabetic ulcer of right foot (Acute) MSSA (methicillin susceptible Staphylococcus aureus) (Resolved) Mycotic cystitis (Resolved) Osteomyelitis (Resolved) 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 Acute on chronic kidney disease stage III likely due to infection/ATN. Baseline creatinine 1.5-1.8 in 2016, 2017. Creatinine 1.73 during last hospitalization in March 2017. Creatinine on admission 3.4 improved to 2.98 today. No urgency to initiate dialysis. Has chronic indwelling Shay catheter for urinary incontinence. 2. CKD stage 3 due to Diabetic nephropathy with urinalysis showing proteinuria in 2016. urine protein creatinine ratio 3.56. suggest ARB when renal fxn back to baseline. 3. DM2 with neuropathy, left BKA for infection. Hx noncompliance. hgbA1C 7.2 4. Rt foot cellulitis on iv antibx. Afebrile without leukocytosis. CRP 75.5 ESR 24. Ok for peripheral PICC. Prefer tunneled picc line but not available here. 5. Hyperkalemia resolved. Follow low K diet 6. Super morbid obesity/sedentary
--- NOTE | 2017-09-18 09:23 | NURSING ---
pt given CT contrast and instructions on it reinforced. pt verbalized i can't i'm constantly puking discussed nausea medications given as well as reason for ct contrast. encouraged pt to attempt to drink as instructions. david richards needs. call light within reach.
--- NOTE | 2017-09-18 09:24 | PCA ---
PT REFUSED TURN PT STATED SHE KEEPS TELLING EVERYONE NO SHE DOES NOT WANT TO TURN, SHE IS FINE THE WAY SHE IS
--- NOTE | 2017-09-18 10:39 | CASEMGMT ---
Social Work Note SW received call from Edwina employee benefits administrator at [facility] stating that pt was approved for skilled at [facility]. Plan: Return to [facility] skilled Anette Long TECHNICAL ASSISTANCE CONSULTANT, ADVERTISEMENT COMPOSITOR
[2017-09-18] MEDS: Piperacil/Tazobactam 3.375 GM/50 ML ML IV (10:45)
[2017-09-18] MEDS: Insulin Lispro 100 UNIT/ML INSULN.PEN SQ ×2 (12:12→16:53)
[2017-09-18 12:21] LABS: Bedside Glucose 158 mg/dL (70-110)
--- NOTE | 2017-09-18 13:02 | PCA ---
pt refused turn
--- NOTE | 2017-09-18 13:48 | PCM.PN.ID ---
- Physical Exam General: Alert, Cooperative Lungs: Clear to auscultation, Normal air movement Cardiovascular: Regular rate, Regular Rhythm Abdomen: Soft, Non Tender, Non-Distended Skin: Ulcer/ Wound - R foot wrapped Vital Signs Temp Pulse Resp BP Pulse Ox 97.6 F L 82 16 106/68 96 09/18/17 08:15 09/18/17 08:15 09/18/17 08:15 09/18/17 08:15 09/18/17 08:15 Oxygen Delivery Method Room Air Weight: 155.7 kg Body Mass Index (BMI) 53.7 Intake and Output for Last 24 Hours 09/16/17 09/17/17 09/18/17 23:59 23:59 23:59 Intake Total 698.1 / 698.1 2049 Output Total 1450 / 1450 3900 / 3900 550 / 550 Balance -751.9 / -751.9 -1850 / -1850 -550 / -550 Laboratory Tests Past 24 Hrs 09/18/17 09/18/17 04:55 04:55 WBC 10.1 RBC 2.95 L Hgb 7.8 L Hct 24.7 L MCV 83.7 MCH 26.4 L MCHC 31.6 L RDW 14.9 H RDW Differential 43.8 Plt Count 316 MPV 8.8 Sodium 141 Potassium 4.9 Chloride 112 H Carbon Dioxide 20.0 L Anion Gap 9 BUN 75 H Creatinine 2.98 H Estim Creat Clear Calc 19.77 Est GFR (MDRD) Af Amer 21 L Est GFR (MDRD) Non-Af 17 L BUN/Creatinine Ratio 25.2 H Glucose 150 H Calcium 8.0 L POC Glucose 09/18/17 09/18/17 09/17/17 12:11 06:35 20:45 POC Glucose 158 H 133 H 188 H 09/17/17 17:25 POC Glucose 159 H Medical Necessity - Tobacco Use Smoking Status: Former smoker Route of nutrition/ use of supplements: [] Nutritional Intake: [] IV Site: [] Shay Catheter: [] - Assessment/Plan Antibiotics: [] Assessment/Plan: [] R DM foot osteo due to MSSA - h/o peripheral neuropathy and prior L BKA. Continue zosyn. Cxs with mssa, VRE, and morganella. Ok for d/c on 6 weeks of unasyn with stop date 10/24/17, weekly bmp, cbc, and esr. Will follow in 2-3 weeks at wound clinic if she is seeing podiatry there. Will follow, d/w Dr. Riley. Rx written.
[2017-09-18 15:14] VITALS: BP 124/70; PULSE 89; RESP 18; TEMP 36.1; O2SAT 99
--- NOTE | 2017-09-18 15:35 | CASEMGMT ---
Addendum entered by Anette Long 09/18/17 16:11: SW updated Inspector Balance Truing Sera that once Dr. Riley completes discharge paperwork they will need faxed to [facility]. Sera states understanding. Original Note: Addendum entered by Anette Long 09/18/17 15:41: Green sheet on pt's chart. Original Note: Social Work Note SW spoke with Dr. Riley who confirms that he will be discharging pt today. STEPHAN updated RN Merry that pt should be discharging today. STEPHAN set up transportation via cot through [place] for 6:00pm as this will allow Dr. Riley time to complete discharge paperwork. Transportation form in pt's chart. STEPHAN waiting for completed discharge paperwork. STEPHAN received call from Edwina at [facility] inquiring about discharge paperwork. STEPHAN informed Edwina that the doctor has confirmed that he will be discharging pt and that this worker or another staff member from [facility] will fax completed discharge paperwork when available. STEPHAN updated Edwina of transportation time. Edwina states understanding. STEPHAN completed convalescent 7000 in [place] with original in pt's chart. STEPHAN updated RN Merry of transportation time and Charge Nurse Eboni. Plan: Pt to discharge to [facility] under skilled with [facility] transporting via cot at 6:00pm. Completed discharge paperwork will be faxed to [facility] when available Anette Long EARLY INTERVENTION SPECIALIST, SPRAY STAINER
--- NOTE | 2017-09-18 16:10 | TREXTCAR_ITS ---
- Diet 09/12/17 18:42 Diet: 2000 loida Food consistency:: Regular Liquid Consistency:: Regular/Thin - Routine Orders/Code Status Routine Lab Work: BMP - in one week-send results to Dr. Gutierrez, - - fingerstick blood sugars ACQHS, coverage with Humalog SQ per protocol: 200-250: 5 units; 251 -300: 8 units; 301-350: 12 units; 351-400: 15 units - Wound(s) RIGHT FOOT Wound Type: Neuropathic/Diabetic Foot Ulcer Dressing Change: cleanse area with normal saline, apply Santyl to wound, cover with guaze and Kerlix, cover with VIRAL wrap daily right elbow Wound Type: Skin Tear left upper forearm Wound Type: Skin Tear abdomen Wound Type: picking right forearm Wound Type: Skin Tear underneath panis Wound Type: Pressure Injury right buttock Wound Type: Pressure Injury right buttock, distal Wound Type: Pressure Injury bilateral buttocks Wound Type: Pressure Injury - Therapies Weight Bearing: Non weight bearing Physical Therapy: Eval and Treat Occupational Therapy: Eval and Treat - Problem/Diagnosis (1) Osteomyelitis of foot, right, acute Status: Acute Current Visit: Yes (2) HLD (hyperlipidemia) Status: Chronic Current Visit: No (3) HTN (hypertension) Status: Chronic Current Visit: No (4) Morbid obesity Status: Chronic Comment: bmi 46 Current Visit: No (5) Bipolar disorder Status: Chronic Current Visit: No (6) CKD stage 3 secondary to diabetes Status: Chronic Current Visit: No (7) Type 2 diabetes mellitus with diabetic polyneuropathy Status: Chronic Current Visit: No - Allergies/Procedures Done in Hospital Allergies/Adverse Reactions: Allergies adhesive Allergy (Verified 09/12/17 16:21) Rash cefadroxil hydrate [From Duricef] Allergy (Verified 09/12/17 16:21) Rash cephalexin monohydrate [From Keflex] Allergy (Verified 09/12/17 16:21) Rash venom-honey bee [bee venom (honey bee)] Allergy (Verified 09/12/17 16:21) Rash Procedures: PICC line placement - Type of Care/Length of Stay Estimated LOS: Convalescent Care Less Than 30 days Type of Care Needed: Skilled Rehab Potential: Fair Prognosis: Fair - Additional Orders/Day of Discharge Additional Orders: stop date on antibiotics: 10/24/17 H&P will serve as current which was dated: 09/12/17 Day of Discharge: 09/18/17 - Dietary and Speech Recommendations Dietitian Recommendations/Changes: Recommend 2000 calorie-cardiac diet. Will continue to provide 1 scoop of beneprotein at meals for additional nutrients to aid in wound healing. - Follow Up Care Primary Care Physician: Leroy Marie MD [Primary Care Provider] - Please Follow Up With: Marisol Vail DPM When: in one week at wound center Please Follow Up With: Rigo Edwards MD When: at wound center in 2-3 weeks Please Follow Up With: Virginia Gutierrez DO When: in 1-2 weeks
[2017-09-18 17:01] LABS: Bedside Glucose 159 mg/dL (70-110)
--- NOTE | 2017-09-21 17:42 | PCM.DC.SUM ---
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 ( methicillin sensitive staph aureus) #2 Acute on chronic renal failure #3 hyperkalemia #4 type 2 diabetes #5 diabetic neuropathy #6 bipolar disorder #7 hypertension #8 anemia of chronic renal disease #9 chronic kidney disease stage III secondary to type 2 diabetes - Secondary Discharge Diagnosis Chronic Problems History of tobacco abuse (Chronic) HLD (hyperlipidemia) (Chronic) HTN (hypertension) (Chronic) Morbid obesity (Chronic) bmi 46 Noncompliance (Chronic) with diabetic therapy Personality disorder (Chronic) History of self-harm (Chronic) scratching and picking Self neglect (Chronic) Type 2 diabetes mellitus (Chronic) Bipolar disorder (Chronic) Anxiety (Chronic) 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 2 diabetes mellitus with diabetic polyneuropathy (Chronic) Hospital Course and Treatment Consultations 09/12/17 20:02 Consult: Onc/Wound/honey processor Routine Comment: Reason for Consult:: diabetic foot wound Operations: None Procedures: None Summary of Care Provided: The patient is a 61 year old F seen in the emergency room at [facility] with complaints of right foot redness and swelling. Patient has a long history of neuropathy from diabetes and type 2 diabetes. Examination in the ER showed her white count to be normal, hemoglobin was low at 9, potassium was elevated at 5.6, BUN and creatinine were 75 and 3.4 respectively. Patient had a history of chronic renal insufficiency but her creatinine in the emergency room was highly elevated over her baseline. X-ray of the right foot showed no obvious signs of osteomyelitis. Patient was admitted to [facility] 3 4 cellulitis of the right foot, she was placed on IV antibiotics and seen by infectious diseases, podiatry, the wound care nurse, and nephrology. Patient's labs were monitored, her creatinine declined during her hospital stay and her potassium corrected. Patient was felt to have osteomyelitis however in the right foot and a PICC line had to be inserted and arrangements were made for the patient to go to a correction facility for further care. On 09/18/17, patient was seen and examined felt in stable condition for discharge to an extended care facility. Home Medications: Medications to take at Discharge Quetiapine Fumarate [Seroquel] 200 mg PO QHS 01/06/13 Ascorbic Acid [Vitamin C] 500 mg PO BIDCM #30 tablet 10/10/13 Calcium Citrate/Vitamin D3 [Calcium Citrate-Vit D3 Tablet] 1 each PO BID 01/21/15 Ferrous Sulfate 325 mg PO BIDCM 01/21/15 Acetaminophen [Tylenol Tablet] 650 mg PO Q4H PRN 03/20/17 Bisacodyl 10 mg RC DAILY PRN PRN 03/20/17 Venlafaxine XR [Effexor Xr] 225 mg PO DAILY 03/20/17 Apixaban [Eliquis] 5 mg PO BID 09/12/17 Cholecalciferol (Vitamin D3) [Vitamin D3] 2,000 unit PO DAILY 09/12/17 Cilostazol [Pletal] 50 mg PO BIDAC 09/12/17 Cyclobenzaprine [Flexeril] 10 mg PO QHS PRN 09/12/17 Hydroxyzine HCl 25 mg PO DAILY 09/12/17 Multivitamins,Therapeutic [Multivitamin] 1 tablet PO DAILY 09/12/17 Pravastatin [Pravachol] 10 mg PO DAILY 09/12/17 hydrOXYzine pamoate capsule [Vistaril pamoate capsule] 50 mg PO QHS 09/12/17 Ampicillin/Sulbactam [Unasyn] 3 gm IV Q12 vial 09/18/17 Apixaban [Eliquis] 5 mg PO BID tablet 09/18/17 Collagenase [Santyl] 1 applic TOPICAL DAILY tube 09/18/17 Insulin Glargine [Lantus SoloStar Pen] 25 units SC DAILY@0700 pen 09/18/17 Insulin Glargine [Lantus SoloStar Pen] 25 units SC QHS pen 09/18/17 Menthol/Lanolin/Calamine/Znox [Calmoseptine Ointment] 1 applic TOPICAL 4X/DAY tube 09/18/17 hydrOXYzine pamoate capsule [Vistaril pamoate capsule] 25 mg PO DAILY capsule 09/18/17 hydrOXYzine pamoate capsule [Vistaril pamoate capsule] 50 mg PO QHS capsule 09/18/17 Primary Care Physician: Leroy Marie MD [Primary Care Provider] - Please Follow Up With: Marisol Vail DPM When: in one week at wound center Please Follow Up With: Rigo Edwards MD When: at wound center in 2-3 weeks Please Follow Up With: Virginia Gutierrez DO When: in 1-2 weeks Disposition: Group Home facility Minutes spent on discharge:: 32 Patient Condition:: Stable Medical Necessity - Tobacco Use Smoking Status: Former smoker Meaningful Use Info Meaningful Use Diagnoses (Choose all that apply): None applicable Code Visit Inpatient E&M: 63538 Disch Hosp
--- NOTE | 2017-09-21 17:48 | DS.PCM_ITS ---
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 ( methicillin sensitive staph aureus) #2 Acute on chronic renal failure #3 hyperkalemia #4 type 2 diabetes #5 diabetic neuropathy #6 bipolar disorder #7 hypertension #8 anemia of chronic renal disease #9 chronic kidney disease stage III secondary to type 2 diabetes - Secondary Discharge Diagnosis Chronic Problems History of tobacco abuse (Chronic) HLD (hyperlipidemia) (Chronic) HTN (hypertension) (Chronic) Morbid obesity (Chronic) bmi 46 Noncompliance (Chronic) with diabetic therapy Personality disorder (Chronic) History of self-harm (Chronic) scratching and picking Self neglect (Chronic) Type 2 diabetes mellitus (Chronic) Bipolar disorder (Chronic) Anxiety (Chronic) 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 2 diabetes mellitus with diabetic polyneuropathy (Chronic) Hospital Course and Treatment Consultations 09/12/17 20:02 Consult: Onc/Wound/girls swimming coach Routine Comment: Reason for Consult:: diabetic foot wound Operations: None Procedures: None Summary of Care Provided: The patient is a 61 year old F seen in the emergency room at [facility] with complaints of right foot redness and swelling. Patient has a long history of neuropathy from diabetes and type 2 diabetes. Examination in the ER showed her white count to be normal, hemoglobin was low at 9, potassium was elevated at 5.6, BUN and creatinine were 75 and 3.4 respectively. Patient had a history of chronic renal insufficiency but her creatinine in the emergency room was highly elevated over her baseline. X-ray of the right foot showed no obvious signs of osteomyelitis. Patient was admitted to [facility] 3 4 cellulitis of the right foot, she was placed on IV antibiotics and seen by infectious diseases, podiatry, the wound care nurse, and nephrology. Patient's labs were monitored, her creatinine declined during her hospital stay and her potassium corrected. Patient was felt to have osteomyelitis however in the right foot and a PICC line had to be inserted and arrangements were made for the patient to go to a long-term facility for further care. On 09/18/17, patient was seen and examined felt in stable condition for discharge to an extended care facility. Home Medications: Medications to take at Discharge Quetiapine Fumarate [Seroquel] 200 mg PO QHS 01/06/13 Ascorbic Acid [Vitamin C] 500 mg PO BIDCM #30 tablet 10/10/13 Calcium Citrate/Vitamin D3 [Calcium Citrate-Vit D3 Tablet] 1 each PO BID Ferrous Sulfate 325 mg PO BIDCM 01/21/15 Acetaminophen [Tylenol Tablet] 650 mg PO Q4H PRN 03/20/17 Bisacodyl 10 mg RC DAILY PRN PRN 03/20/17 Venlafaxine XR [Effexor Xr] 225 mg PO DAILY 03/20/17 Apixaban [Eliquis] 5 mg PO BID 09/12/17 Cholecalciferol (Vitamin D3) [Vitamin D3] 2,000 unit PO DAILY 09/12/17 Cilostazol [Pletal] 50 mg PO BIDAC 09/12/17 Cyclobenzaprine [Flexeril] 10 mg PO QHS PRN 09/12/17 Hydroxyzine HCl 25 mg PO DAILY 09/12/17 Multivitamins,Therapeutic [Multivitamin] 1 tablet PO DAILY 09/12/17 Pravastatin [Pravachol] 10 mg PO DAILY 09/12/17 hydrOXYzine pamoate capsule [Vistaril pamoate capsule] 50 mg PO QHS 09/12/17 Ampicillin/Sulbactam [Unasyn] 3 gm IV Q12 vial 09/18/17 Apixaban [Eliquis] 5 mg PO BID tablet 09/18/17 Collagenase [Santyl] 1 applic TOPICAL DAILY tube 09/18/17 Insulin Glargine [Lantus SoloStar Pen] 25 units SC DAILY@0700 pen 09/18/17 Insulin Glargine [Lantus SoloStar Pen] 25 units SC QHS pen 09/18/17 Menthol/Lanolin/Calamine/Znox [Calmoseptine Ointment] 1 applic TOPICAL 4X/DAY tube 09/18/17 hydrOXYzine pamoate capsule [Vistaril pamoate capsule] 25 mg PO DAILY capsule 09/18/17 hydrOXYzine pamoate capsule [Vistaril pamoate capsule] 50 mg PO QHS capsule Primary Care Physician: Leroy Marie MD [Primary Care Provider] - Please Follow Up With: Marisol Vail DPM When: in one week at wound center Please Follow Up With: Rigo Edwards MD When: at wound center in 2-3 weeks Please Follow Up With: Virginia Gutierrez DO When: in 1-2 weeks Disposition: Group Home facility Minutes spent on discharge:: 32 Patient Condition:: Stable Medical Necessity - Tobacco Use Smoking Status: Former smoker Meaningful Use Info Meaningful Use Diagnoses (Choose all that apply): None applicable Code Visit Inpatient E&M: 27874 Disch Hosp
== END 2017-09-18 19:20 | disposition skilled nursing facility (03) | DRG 638 ==
LOC: ED 17:19 → MS3 18:50
PROVIDERS: Internal Medicine; Internal Medicine Nephrology; Admitting Provider Hospitalist; Emergency Provider Emergency Medicine; Family Provider Family Medicine; PCP Family Medicine; Visit Provider Internal Medicine
DX: E11.621 Type 2 diabetes mellitus with foot ulcer (principal); L03.115 Cellulitis of right lower limb; Z68.43 Body mass index [BMI] 50.0-59.9, adult; M86.8X7 Other osteomyelitis, ankle and foot; L97.512 Non-pressure chronic ulcer of other part of right foot with fat layer exposed; E11.65 Type 2 diabetes mellitus with hyperglycemia; I12.9 Hypertensive chronic kidney disease with stage 1 through stage 4 chronic kidney disease, or unspecified chronic kidney disease; E11.22 Type 2 diabetes mellitus with diabetic chronic kidney disease; N18.3 Chronic kidney disease, stage 3 (moderate); Z89.512 Acquired absence of left leg below knee; E87.5 Hyperkalemia; Z79.4 Long term (current) use of insulin; E11.628 Type 2 diabetes mellitus with other skin complications; E78.5 Hyperlipidemia, unspecified; E11.42 Type 2 diabetes mellitus with diabetic polyneuropathy; Z89.411 Acquired absence of right great toe; Z89.421 Acquired absence of other right toe(s); Z87.891 Personal history of nicotine dependence; B95.2 Enterococcus as the cause of diseases classified elsewhere; B95.61 Methicillin susceptible Staphylococcus aureus infection as the cause of diseases classified elsewhere; E66.01 Morbid (severe) obesity due to excess calories; B96.89 Other specified bacterial agents as the cause of diseases classified elsewhere; F31.9 Bipolar disorder, unspecified; E11.69 Type 2 diabetes mellitus with other specified complication; N17.0 Acute kidney failure with tubular necrosis
CPT/HCPCS: 36415; 36569; 73630; 73718; 76770; 80048; 80202; 81001; 82570; 82962; 83036; 83735; 84132; 84156; 84300; 85025; 85027; 85652; 86140; 87040; 87070; 87075; 87077; 87186; 87205; 87640; 93005; 93923; 97802; 99285; J7030; J7040; A4216

== ENCOUNTER 2017-12-06 12:44 | Inpatient (IN) | payer MEDICARE, SELFPAY ==
[2017-12-06] VITALS (9 sets, daily range): BP systolic 115–129; BP diastolic 56–79; PULSE 101–105; RESP 13–20; TEMP 36.8–37.3; O2SAT 96–100; BMI 59.3; BMI 57.7; BMI 57.8
--- NOTE | 2017-12-06 13:01 | EKG12_ITS ---
Test Reason : MENTAL CHANGE Blood Pressure : / mmHG Vent. Rate : 102 BPM Atrial Rate : 102 BPM P-R Int : 162 ms QRS Dur : 086 ms QT Int : 332 ms P-R-T Axes : 042 004 165 degrees QTc Int : 432 ms Sinus tachycardia Nonspecific ST and T wave abnormality Abnormal ECG Confirmed by LEONARD SHARMA ([id number]), scientific publications editor VITOR OSULLIVAN ([id number]) on 12/10/2017 2:28:14 PM Referred By: MADELYN Confirmed By:LEONARD SHARMA
[2017-12-06 14:02] LABS: Absolute Lymphocyte Count 1.74 X10^3/ul (0.83-4.51); Absolute Neutrophil Count 25.6 X10^3/uL (2.0-7.7); Basophil# 0.02 X10^3/uL; Basophil% 0.1 % (0-1); Eosinophil# 0.22 X10^3/uL; Eosinophils% 0.8 % (0-5); Hematocrit 27.6 % (37-47); Hemoglobin 8.9 g/dl (12.0-15.0); International Normalized Ratio 2.5; Lymphocyte # 1.74 X10^3/ul (4.0); Lymphocyte % 6.2 % (19-41); Mean Corp Hgb Conc 32.2 g/gl (32-36); Mean Corpuscular Hgb 25.6 pg (27.0-32.0); Mean Corpuscular Volume 79.5 fL (81-99); Mean Platelet Vol. 9.1 fl (6.2-12.0); Monocyte# 0.26 X10^3/uL; Monocyte% 0.9 % (0-10); Neutrophil # 25.64 X10^3/uL (2.7-7.7); Neutrophil % 91.7 % (47-70); Platelet Count 231 K/mm3 (150-450); RBC Distribution Width CV 14.5 % (11.6-14.6); RBC Distribution Width SD 41.9 fl (35.1-43.9); Red Blood Count 3.47 M/mm3 (4.2-5.4)
[2017-12-06 14:03] LABS: Partial Thromboplast Time 64.2 Seconds (24.1-36.2)
[2017-12-06 14:04] LABS: Differential Indicated SCAN CRITERIA MET; POSITIVE COUNT NO; POSITIVE DIFFERENTIAL YES; POSITIVE MORPHOLOGY NO
[2017-12-06 14:11] LABS: ALB/GLOB Ratio 0.4 RATIO (0.9-2.4); AST(SGOT) 25 U/L (15-37); Alanine Aminotransfer ALT/SGPT 35 U/L (13-56); Albumin, Serum 1.8 g/dL (3.2-5.0); Alkaline Phosphatase 146 U/L (45-117); Anion Gap 11 (5-15); BUN 61 mg/dL (7-18); BUN/Creat Ratio 24.1 RATIO (10-20); Calcium,Total 8.7 mg/dL (8.5-10.1); Chloride 102 mmol/L (98-107); Creatinine, Serum 2.53 mg/dL (0.55-1.02); EST Glomerular Filtration Rate 21 mL/min (>60); Est Glom Filt Rate - Afr Amer 25 mL/min (>60); Globulin 4.8 g/dL (2.2-4.2); Glucose 109 mg/dL (74-106); Potassium 4.3 mmol/L (3.5-5.1); Protein, Total 6.6 g/dL (6.4-8.2); Sodium Level 133 mmol/L (136-145)
[2017-12-06 14:13] LABS: Color, Urine Yellow (Yellow); Glucose, Dipstick Normal (Normal); Ketone-Dipstick Negative (Negative); Leukocyte Esterase-Dipstick 500 /ul (Negative); Nitrite-Dipstick Negative (Negative); Occult Blood-Urine 250 /ul (Negative); Protein-Dipstick 100 mg/dl (Negative); Specific Gravity, Urine 1.015 (1.002-1.030); Urine Bilirubin Dipstick Negative (Negative); Urine Clarity Sl. Cloudy (Clear); Urine Urobilinogen Normal (Normal)
[2017-12-06 14:16] LABS: Lactic Acid 0.9 mmol/L (0.4-2.0)
[2017-12-06 14:22] LABS: Red Blood Cells-Urine 5-10 SEEN /hpf (0-5); White Blood Cells 10-25 SEEN /hpf (0-5)
[2017-12-06 14:24] LABS: Bacteria 2+ /hpf (None Seen); Mucous, Urine 1+ /hpf (<or=2+); Squamous Epithelial Cells - UA 0-5 SEEN /hpf (5-10)
--- NOTE | 2017-12-06 15:17 | NURSING ---
MED SURG UTI, SEPSIS SLOAN
[2017-12-06] MEDS: Ciprofloxacin 400 MG/200 ML BAG 200 MG IV (15:24)
--- NOTE | 2017-12-06 16:03 | CASEMGMT ---
Addendum entered by Amber Zambrano 12/07/17 10:22: Green sheet is on chart with instructions if patient is discharged back to [facility] over the weekend. Plan: d/c back to [facility] under intermediate level of care. Amber PILLAI Original Note: Patient is from [facility]. STEPHAN called Edwina at [facility] and if patient is ready over the weekend she can return. Amber COLEMAN MSW
[2017-12-06] MEDS: 0.9% Normal Saline 1,000 ML 125 ML IV (16:30)
[2017-12-06 16:41] LABS: Bedside Glucose 103 mg/dL (70-110)
--- NOTE | 2017-12-06 16:43 | PCM.HP.STD ---
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 She states that she just doesn't feel well. She is very tearful. She states that she aches all over and has had intermittent fevers and chills all week. She thinks that she was started on an antibiotic as an outpatient but does not know what she took. She has a salgado that was changed on 12/01/2017. In the ER she appears to have a UTI and sepsis. She is unsure how long she has had foleys in. She has severe pain in the perineal region and anything that touches this area morgan. Urine contaminates this area and causes severe burning. She does not think the salgado is causing any discomfort at all. She has chronic wounds from self picking all over her body. She does not have sob or cough. No abdominal pain. She is bedbound an unable to get up on her own. [] Past Medical History Past Medical History (Chronic Problems): Chronic Problems Type 2 diabetes mellitus with diabetic polyneuropathy (Chronic) History of tobacco abuse (Chronic) HLD (hyperlipidemia) (Chronic) HTN (hypertension) (Chronic) Morbid obesity (Chronic) bmi 46 Noncompliance (Chronic) with diabetic therapy Personality disorder (Chronic) History of self-harm (Chronic) scratching and picking Self neglect (Chronic) Type 2 diabetes mellitus (Chronic) Bipolar disorder (Chronic) Anxiety (Chronic) 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 2 diabetes mellitus with diabetic polyneuropathy (Chronic) Allergies adhesive Allergy (Verified 12/06/17 12:50) Rash cefadroxil hydrate [From Duricef] Allergy (Verified 12/06/17 12:50) Rash cephalexin monohydrate [From Keflex] Allergy (Verified 12/06/17 12:50) Rash venom-honey bee [bee venom (honey bee)] Allergy (Verified 12/06/17 12:50) Rash Home Medications: Ambulatory Orders Medication Instructions Recorded Ascorbic Acid [Vitamin C] 500 mg PO BIDCM #30 tablet 10/10/13 Ferrous Sulfate 325 mg PO BIDCM 01/21/15 Acetaminophen [Tylenol Tablet] 650 mg PO Q4H PRN 03/20/17 Bisacodyl 10 mg RC DAILY PRN PRN 03/20/17 Cholecalciferol (Vitamin D3) 2,000 unit PO DAILY 09/12/17 [Vitamin D3] Cilostazol [Pletal] 50 mg PO BIDAC 09/12/17 Hydroxyzine HCl 25 mg PO DAILY 09/12/17 Multivitamins,Therapeutic 1 tablet PO DAILY 09/12/17 [Multivitamin] Apixaban [Eliquis] 5 mg PO BID tablet 09/18/17 Calcium Carbonate/Vitamin D3 1 tab PO BID 12/06/17 [Calcium 600-Vit D3 200 Tablet] Epoetin Carlos Eduardo [Procrit] 10,000 unit SQ QWEEK PRN 12/06/17 Guaifenesin Dm [Robitussin Dm] 10 ml PO Q6H PRN PRN 12/06/17 Hydroxyzine Pamoate [Vistaril] 50 mg PO QHS 12/06/17 Insulin Glargine,Hum.rec.anlog 40 unit SQ QHS 12/06/17 [Basaglar Kwikpen U-100] Insulin Glargine,Hum.rec.anlog 55 unit SQ DAILY 12/06/17 [Basaglar Kwikpen U-100] L. Acidophilus/Pectin, Campbell 1 cap PO DAILY 12/06/17 [Acidophilus Capsule] Magnesium Hydroxide [Milk Of 30 ml PO DAILY PRN PRN 12/06/17 Magnesia] Nystatin Powder [Mycostatin Powder] 1 applic TOPICAL BID 12/06/17 Paroxetine HCl [Paxil] 20 mg PO DAILY 12/06/17 Pravastatin Sodium [Pravachol] 10 mg PO QHS 12/06/17 Pyridoxine HCl [Vitamin B-6] 100 mg PO DAILY 12/06/17 Quetiapine Fumarate [Seroquel] 200 mg PO DAILY 12/06/17 Venlafaxine HCl [Venlafaxine HCl 225 mg PO DAILY 12/06/17 ER] Surgical History: no surgical history, - - foot surgeries, right great toe, partial 2nd, 3rd toe amputation, left below the knee amputation Psychiatric History: No pertinent psych hx 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 Denies: Weight Change HEENT: Denies: Head Aches, Sinus Congestion, Sinus Drainage Cardiovascular: Denies: Chest Pain, Palpitations Respiratory: Denies: Cough, Shortness of Breath, Shortness of breath at rest, Shortness of breath upon exertion, Sputum production Gastrointestinal: Denies: Abdominal Pain, Diarrhea, Nausea, Vomiting Genitourinary: Denies: Dysuria, Hesitancy, Urgency Musculoskeletal: Denies: Joint Pain, Joint Tenderness Skin: Reports: Rash, Wounds Neurological: Denies: Numbness, Tingling, Focal weakness Psychiatric: Reports: Anxiety, Depression. Denies: Homicidal Ideations, Suicidal Ideations Hematologic/ Lymphatic: Denies: Easy Bruising, Easy Bleeding VTE Information - Inpt Only VTE Present on Admission: No VTE Mechan Device Prophylaxis: None VTE Pharm Prophylaxis ordered?: Yes Patient Problems: Active and Suspected Problems UTI (urinary tract infection) (Acute) Sepsis (Acute) - Physical Exam General: Alert, Oriented x3, Cooperative HEENT: Atraumatic, PERRLA, EOMI, Normocephalic Neck: Supple, No JVD, Negative Carotid Bruits Lungs: Clear to auscultation, Normal air movement Cardiovascular: Regular rate, No murmurs Abdomen: Bowel Sounds Present, Soft, Non Tender, Obese Extremities: No edema, Capillary Refill Less than 3 Seconds, - - s/p left bka, right foot dressed Skin: No rashes, No breakdown, - Musculoskeletal: No Tenderness to Palpation of Joints or Extremities Neurological: Cranial nerves II-XII grossly intact Psych/Mental Status: Anxious, Alert and oriented to time, place, person, mood and affect Vital Signs Temp Pulse Resp BP Pulse Ox 98.3 F 101 H 17 129/79 H 96 12/06/17 15:23 12/06/17 15:06 12/06/17 15:06 12/06/17 14:13 12/06/17 14:13 Weight: 368 lb 13.334 oz Body Mass Index (BMI) 57.7 POC Glucose 12/06/17 16:16 POC Glucose 103 Assessment/Plan All Active Problems Osteomyelitis of foot, right, acute (Acute) UTI (urinary tract infection) (Acute) Sepsis (Acute) Cellulitis of right foot (Acute) Diabetic ulcer of right foot (Acute) MSSA (methicillin susceptible Staphylococcus aureus) (Resolved) Mycotic cystitis (Resolved) Osteomyelitis (Resolved) 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 Acute sepsis 2/2 UTI 2/2 chronic indwelling salgado - + leukocytosis, tachy, afebrile, lactate negative. Salgado last changed 12/01. Change salgado. Start cipro and wait for cultures. 2. Chronic wounds - wound care consult. Some self inflicted. Perineal wounds worsened with urinary contamination. 3. CKDIV - does not appear to be above baseline 4. DMt2 - continue insulin + SSI 5. PVD - on pletal. 6. Bipolar disorder - continue home meds DVT ppx: on eliquis DC planning: return to snf when appropriate This patient was seen by Adolfo Duong PA-C under the supervision of Doctor May. <Milo Olvera F - Last Filed: 12/06/17 21:40> History of Present Illness The patient is a 62 year old F [] Past Medical History Allergies adhesive Allergy (Verified 12/06/17 12:50) Rash cefadroxil hydrate [From Duricef] Allergy (Verified 12/06/17 12:50) Rash cephalexin monohydrate [From Keflex] Allergy (Verified 12/06/17 12:50) Rash venom-honey bee [bee venom (honey bee)] Allergy (Verified 12/06/17 12:50) Rash - Physical Exam Vital Signs Temp Pulse Resp BP Pulse Ox 99.1 F 105 H 18 115/69 97 12/06/17 16:20 12/06/17 16:20 12/06/17 16:20 12/06/17 16:20 12/06/17 16:20 Oxygen Delivery Method Room Air Weight: 368 lb 13.334 oz Body Mass Index (BMI) 57.7 Intake and Output for Last 24 Hours 12/04/17 12/05/17 12/06/17 23:59 23:59 23:59 Intake Total 623 / 623 Output Total 360 / 360 Balance 263 / 263 POC Glucose 12/06/17 16:16 POC Glucose 103 Assessment/Plan Addendum: Dr. Olvera I personally examined the patient and reviewed the chart. I agree with the above. Mrs. Delgado is a 8-year-old female with a history of chronic wounds due to her picking, CKD 4, diabetes, PVD, bipolar disorder, who presents with a few day history of not feeling well. She has a chronic Salgado that was last changed on December 01. In the ER she was found to have an elevated white count and was tachycardic however she was also afebrile and a lactic acid was negative. Her UA was significant for a UTI and given her allergies she was started on Cipro twice daily in the ER. General: Alert, Oriented x3, Cooperative HEENT: Atraumatic, EOMI, Normocephalic Neck: Supple, No JVD, Negative Carotid Bruits Lungs: Clear to auscultation, Normal air movement Cardiovascular: Regular rate, No murmurs Abdomen: Bowel Sounds Present, Soft, Non Tender, Obese Extremities: No edema, Capillary Refill Less than 3 Seconds, - - s/p left bka, right foot dressed Skin: multiple areas of excoriations that are bleeding or scabbed. Musculoskeletal: No Tenderness to Palpation of Joints or Extremities Neurological: Cranial nerves II-XII grossly intact Psych/Mental Status: Anxious, Alert and oriented to time, place, person, mood and affect 1. Sepsis secondary to UTI - IVF@125 and c/w the cipro BID - Monitor QT with seroquel and cipro - Await sensitivities - She did have her salgado changed today - UTI is complicated by her uncontrolled DM, will try for a tighter controlled blood glucose Code Visit Inpatient E&M: 41953 Init Hosp L3
--- NOTE | 2017-12-06 16:58 | ED.VISSUMM ---
- ER Visit Summary Date of Service: 12/06/17 Chief Complaint: Questionable sepsis History of Present Illness: The patient is a 62 F who states she was sent here from her halfway to rule out sepsis. For the past 4 days she has been dealing with sweats and chills. She was diagnosed with a UTI at the halfway. She has no had no documented fevers. Mental status was changed according to the halfway. Patient does not believe that she has had an altered mental status. She has an indwelling Shay catheter due to decreased mobilization. Physical Examination: Vital signs are reviewed. HEENT exam unremarkable. Heart is tachycardic and regular rhythm without murmurs. Lungs are clear to auscultation. Abdomen soft nontender. She does have a Shay catheter in place. She has a left lower extremity below-knee amputation. Neurologic exam is normal. Test Results: EKG is sinus rhythm with no ST changes. Chest x-ray reveals cardiomegaly. White blood cell count 28,000, hemoglobin 8.9. INR 2.5. She has 10-25 white blood cells in her urine. Emergency Department Course and Treatment: Patient is normotensive. Her lactate was 0.9 which is normal. Patient was started on IV ciprofloxacin for the UTI and sepsis. She will be admitted to the hospital Treatment Plan: [] Disposition: Admit Impression: UTI, sepsis This note was generated with [employer] dictation software. It may contain incorrect words, spelling, and punctuation that were not noted in review of the chart prior to signing ED Disposition - Plan for ED Patient: Disposition: Acute Care Hospital [facility] Chief Complaint: Mental Status Change
[2017-12-06 23:51] LABS: Bedside Glucose 113 mg/dL (70-110)
--- NOTE | 2017-12-07 01:20 | NURSING ---
Walked into pts room to find her 'picking'/digging into her open abdominal wounds. Visible scabs underneath her finger nails. Blood dripping on the right side of bed. Pts dressing, which covered this area, was placed on the bedside table. When asked about pts actions she irritably stated I'm a fiber picker. This nurse, along with three other nurses proceeded to clean and reposition pt. ABD dressing with paper tape place over lower abdomen. Topped with a chux pad tucked underneath abd. Left pt in bed covered with blankets. Will continue to monitor.
[2017-12-07 03:50] VITALS: BP 98/52; PULSE 97; RESP 16; TEMP 36.6; O2SAT 100
[2017-12-07] MEDS: Acetaminophen 325 MG Tablet 650 MG PO (03:58)
[2017-12-07] MEDS: 0.9% Normal Saline 1,000 ML 125 ML IV (03:59)
[2017-12-07 07:06] LABS: Bedside Glucose 95 mg/dL (70-110)
[2017-12-07 07:31] LABS: Anion Gap 14 (5-15); BUN 61 mg/dL (7-18); BUN/Creat Ratio 23.7 RATIO (10-20); Calcium,Total 8.3 mg/dL (8.5-10.1); Chloride 102 mmol/L (98-107); Creatinine, Serum 2.57 mg/dL (0.55-1.02); EST Glomerular Filtration Rate 20 mL/min (>60); Est Glom Filt Rate - Afr Amer 25 mL/min (>60); Estimated Creatinine Clearance 22.64 ml/min; Glucose 83 mg/dL (74-106); Potassium 3.9 mmol/L (3.5-5.1); Sodium Level 132 mmol/L (136-145)
[2017-12-07 07:32] LABS: Absolute Lymphocyte Count 2.43 X10^3/ul (0.83-4.51); Absolute Neutrophil Count 27.2 X10^3/uL (2.0-7.7); Basophil# 0.02 X10^3/uL; Basophil% 0.1 % (0-1); Eosinophils% 0.7 % (0-5); Hematocrit 25.3 % (37-47); Hemoglobin 8.2 g/dl (12.0-15.0); Lymphocyte # 2.43 X10^3/ul (4.0); Mean Corp Hgb Conc 32.4 g/gl (32-36); Mean Corpuscular Hgb 25.5 pg (27.0-32.0); Mean Corpuscular Volume 78.8 fL (81-99); Mean Platelet Vol. 9.4 fl (6.2-12.0); Monocyte# 0.26 X10^3/uL; Monocyte% 0.9 % (0-10); Neutrophil # 27.24 X10^3/uL (2.7-7.7); Neutrophil % 89.9 % (47-70); Platelet Count 235 K/mm3 (150-450); RBC Distribution Width CV 14.6 % (11.6-14.6); RBC Distribution Width SD 42.1 fl (35.1-43.9); Red Blood Count 3.21 M/mm3 (4.2-5.4)
[2017-12-07 07:34] LABS: POSITIVE COUNT YES; POSITIVE DIFFERENTIAL YES; POSITIVE MORPHOLOGY YES
[2017-12-07 07:35] VITALS: O2SAT 98
[2017-12-07 07:35] LABS: Differential Indicated SCAN CRITERIA MET; White Blood Count 30.3 K/mm3 (4.4-11.0)
[2017-12-07] MEDS: Multivitamins,Therapeutic Tablet 1 TABLET PO (08:57)
[2017-12-07] MEDS: Calcium Carb/Vitamin D 1 TABLET Tablet PO (08:57)
[2017-12-07] MEDS: Ascorbic Acid 500 MG Tablet PO (08:57)
[2017-12-07] MEDS: Cilostazol 50 MG Tablet PO ×2 (08:57→16:37)
[2017-12-07] MEDS: Ferrous Sulfate 325 MG Tablet PO (08:57)
[2017-12-07 09:56] VITALS: BP 107/62; PULSE 93; RESP 16; TEMP 36.4; O2SAT 100
[2017-12-07] MEDS: proCHLORPERazine 5 MG Tablet PO (11:24)
[2017-12-07] MEDS: Venlafaxine XR 75 MG Capsule 225 MG PO (11:28)
[2017-12-07] MEDS: hydrOXYzine PAM 25 MG Capsule PO (11:28)
[2017-12-07] MEDS: APIXABAN 5 MG TABLET PO ×2 (11:28→22:47)
[2017-12-07] MEDS: QUEtiapine 100 MG Tablet 200 MG PO (11:28)
[2017-12-07] MEDS: Nystatin Powder 15gm Bottle 1 APPLIC TOPICAL ×2 (11:29→22:43)
[2017-12-07 11:51] LABS: Bedside Glucose 90 mg/dL (70-110)
--- NOTE | 2017-12-07 12:40 | PN_ITS ---
<Adolfo Duong - Last Filed: 12/07/17 12:37> Patient Problems: Active and Suspected Problems UTI (urinary tract infection) (Acute) Sepsis (Acute) Subjective: Pt complaining of nausea without vomiting this AM. No fever or chills overnight. No abdominal pain. Salgado cath changed yesterday. No dizziness/LH. - Physical Exam General: Alert, Oriented x3, Cooperative HEENT: Atraumatic, PERRLA, EOMI, Normocephalic Neck: Supple, No JVD, Negative Carotid Bruits Lungs: Clear to auscultation, Normal air movement Cardiovascular: Regular rate, No murmurs Abdomen: Bowel Sounds Present, Soft, Non Tender, - - chronic wounds unchanged Extremities: No edema, Capillary Refill Less than 3 Seconds Skin: No rashes, No breakdown Musculoskeletal: No Tenderness to Palpation of Joints or Extremities Neurological: Cranial nerves II-XII grossly intact Psych/Mental Status: Normal Affect, Appropriate, Alert and oriented to time, place, person, mood and affect Vital Signs Temp Pulse Resp BP Pulse Ox 97.6 F L 93 16 107/62 100 12/07/17 09:56 12/07/17 09:56 12/07/17 09:56 12/07/17 09:56 12/07/17 09:56 Oxygen Flow Rate (L/min) 2 Oxygen Delivery Method Nasal Cannula Weight: 368 lb 13.334 oz Body Mass Index (BMI) 57.7 Intake and Output for Last 24 Hours 12/05/17 12/06/17 12/07/17 23:59 23:59 23:59 Intake Total 623 / 623 1619 / 1619 Output Total 360 / 360 175 / 175 Balance 263 / 263 1444 / 1444 Laboratory Tests Past 24 Hrs 12/07/17 12/07/17 06:15 06:15 WBC 30.3 H* RBC 3.21 L Hgb 8.2 L Hct 25.3 L MCV 78.8 L MCH 25.5 L MCHC 32.4 RDW 14.6 RDW Differential 42.1 Plt Count 235 MPV 9.4 Immature Gran % (Auto) 0.400 Neut % (Auto) 89.9 H Lymph % (Auto) 8.0 L Weakley % (Auto) 0.9 Eos % (Auto) 0.7 Baso % (Auto) 0.1 Absolute Neuts (auto) 27.2 H Absolute Lymphs (auto) 2.43 Total Counted Not Reportable Differential Comment Pending Diff Path Review May foll Sodium 132 L Potassium 3.9 Chloride 102 Carbon Dioxide 16.0 L Anion Gap 14 BUN 61 H Creatinine 2.57 H Estim Creat Clear Calc 22.64 Est GFR (MDRD) Af Amer 25 L Est GFR (MDRD) Non-Af 20 L BUN/Creatinine Ratio 23.7 H Glucose 83 Calcium 8.3 L POC Glucose 12/07/17 12/07/17 12/06/17 11:23 06:53 23:43 POC Glucose 90 95 113 H 12/06/17 16:16 POC Glucose 103 Medical Necessity - Tobacco Use Smoking Status: Former smoker Tobacco Use: Non-smoker Assessment/Plan All Active Problems Osteomyelitis of foot, right, acute (Acute) UTI (urinary tract infection) (Acute) Sepsis (Acute) Cellulitis of right foot (Acute) Diabetic ulcer of right foot (Acute) MSSA (methicillin susceptible Staphylococcus aureus) (Resolved) Mycotic cystitis (Resolved) Osteomyelitis (Resolved) 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 Acute sepsis 2/2 UTI 2/2 chronic indwelling salgado - prelim culture possibly enterococcus. Continue cipro and wait for final. Afebrile, + leukocytosis. Salgado changed yesterday. 2. Chronic wounds - wound care consulted. Some self inflicted. Perineal wounds worsened with urinary contamination. 3. CKDIV - does not appear to be above baseline 4. DMt2 - continue insulin + SSI 5. PVD - on pletal. 6. Bipolar disorder - continue home meds DVT ppx: on eliquis DC planning: return to snf when appropriate This patient was seen by Adolfo Duong PA-C under the supervision of Doctor Luca. <Isac Segovia - Last Filed: 12/07/17 15:08> Subjective: I agree with above note. Patient had nausea but no vomiting. No fever after admission - Physical Exam General: Alert, Oriented x3, Cooperative HEENT: Atraumatic, PERRLA, EOMI, Normocephalic Neck: Supple, No JVD, Negative Carotid Bruits Lungs: Clear to auscultation, Normal air movement Cardiovascular: Regular rate, No murmurs Abdomen: Bowel Sounds Present, Soft, Non Tender, - Extremities: No edema, Capillary Refill Less than 3 Seconds Skin: No rashes, No breakdown Musculoskeletal: No Tenderness to Palpation of Joints or Extremities Neurological: Cranial nerves II-XII grossly intact Psych/Mental Status: Normal Affect, Appropriate Vital Signs Temp Pulse Resp BP Pulse Ox 97.6 F L 93 16 107/62 100 12/07/17 09:56 12/07/17 09:56 12/07/17 09:56 12/07/17 09:56 12/07/17 09:56 Oxygen Flow Rate (L/min) 2 Oxygen Delivery Method Nasal Cannula Weight: 368 lb 13.334 oz Body Mass Index (BMI) 57.7 Intake and Output for Last 24 Hours 12/05/17 12/06/17 12/07/17 23:59 23:59 23:59 Intake Total 623 / 623 2324 / 2324 Output Total 360 / 360 350 / 350 Balance 263 / 263 1973 / 1973 Laboratory Tests Past 24 Hrs 12/07/17 12/07/17 06:15 06:15 WBC 30.3 H* RBC 3.21 L Hgb 8.2 L Hct 25.3 L MCV 78.8 L MCH 25.5 L MCHC 32.4 RDW 14.6 RDW Differential 42.1 Plt Count 235 MPV 9.4 Immature Gran % (Auto) 0.400 Neut % (Auto) 89.9 H Lymph % (Auto) 8.0 L Weakley % (Auto) 0.9 Eos % (Auto) 0.7 Baso % (Auto) 0.1 Absolute Neuts (auto) 27.2 H Absolute Lymphs (auto) 2.43 Total Counted Not Reportable Differential Comment SCANNED Diff Path Review July Sodium 132 L Potassium 3.9 Chloride 102 Carbon Dioxide 16.0 L Anion Gap 14 BUN 61 H Creatinine 2.57 H Estim Creat Clear Calc 22.64 Est GFR (MDRD) Af Amer 25 L Est GFR (MDRD) Non-Af 20 L BUN/Creatinine Ratio 23.7 H Glucose 83 Calcium 8.3 L POC Glucose 12/07/17 12/07/17 12/06/17 11:23 06:53 23:43 POC Glucose 90 95 113 H 12/06/17 16:16 POC Glucose 103 Assessment/Plan This patient was seen in conjunction with Adolfo AGUILERA. I have independently interviewed and examined the patient and reviewed pertinent history, examination findings, laboratory and plan of management. I have reviewed the note and agree with the documented findings with the few additional points. In brief, patient is admitted for sepsis secondary to complicated UTI with chronic indwelling Salgado catheter. Urine culture shows gram-positive cocci 11, 000-25,000 most probably contaminated or partially treated range. Previous urine culture of 09/12/2017 shows VRE, staph aureus and Morganella morganii. Based on [facility] antibiogram started on vancomycin. I have discussed my assessment with Adolfo AGUILERA and orders have been reviewed. Code Visit Inpatient E&M: 01007 Subs Hosp L3
[2017-12-07 14:10] LABS: Differential Comment SCANNED
--- NOTE | 2017-12-07 16:12 | NURSING ---
mepilex x2 replaced to coccyx after pericare provided as incont. stool and repositioned x3-4 assist w/ squirrel worker
[2017-12-07 16:27] VITALS: BP 118/61; PULSE 93; RESP 20; TEMP 36.6; O2SAT 98
[2017-12-07] MEDS: 0.9% NaCl IVPB Med Flush (250 mL) 15 ML IV (16:31)
[2017-12-07] MEDS: 0.9% NaCl Peripheral Flush Adult/Peds IV (16:32)
[2017-12-07 16:45] LABS: Bedside Glucose 85 mg/dL (70-110)
[2017-12-07 22:00] VITALS: BP 103/58; PULSE 103; RESP 16; TEMP 36.9; O2SAT 100
[2017-12-07] MEDS: Glucerna Shake 120 ML LIQUID PO (22:47)
[2017-12-07] MEDS: Pravastatin 20 MG Tablet 10 MG PO (22:49)
[2017-12-07] MEDS: hydrOXYzine PAM 25 MG Capsule 50 MG PO (22:50)
[2017-12-07 23:00] VITALS: PULSE 103; O2SAT 100
[2017-12-07 23:01] LABS: Bedside Glucose 111 mg/dL (70-110)
[2017-12-08 04:00] VITALS: BP 101/55; PULSE 68; RESP 16; TEMP 37; O2SAT 100
[2017-12-08 06:42] LABS: Anion Gap 14 (5-15); BUN 66 mg/dL (7-18); BUN/Creat Ratio 25.9 RATIO (10-20); Calcium,Total 8.3 mg/dL (8.5-10.1); Chloride 102 mmol/L (98-107); Creatinine, Serum 2.55 mg/dL (0.55-1.02); EST Glomerular Filtration Rate 20 mL/min (>60); Est Glom Filt Rate - Afr Amer 25 mL/min (>60); Estimated Creatinine Clearance 22.81 ml/min; Glucose 94 mg/dL (74-106); Potassium 4.3 mmol/L (3.5-5.1); Sodium Level 134 mmol/L (136-145)
[2017-12-08 07:11] LABS: Bedside Glucose 106 mg/dL (70-110)
[2017-12-08 07:18] LABS: Absolute Lymphocyte Count 0.86 X10^3/ul (0.83-4.51); Basophil# 0.04 X10^3/uL; Basophil% 0.1 % (0-1); Eosinophil# 0.36 X10^3/uL; Eosinophils% 1.1 % (0-5); Hematocrit 26.3 % (37-47); Hemoglobin 8.4 g/dl (12.0-15.0); Lymphocyte # 0.86 X10^3/ul (4.0); Lymphocyte % 2.5 % (19-41); Mean Corp Hgb Conc 31.9 g/gl (32-36); Mean Corpuscular Hgb 25.5 pg (27.0-32.0); Mean Corpuscular Volume 79.7 fL (81-99); Mean Platelet Vol. 9.2 fl (6.2-12.0); Monocyte# 1.58 X10^3/uL; Monocyte% 4.6 % (0-10); Neutrophil # 30.96 X10^3/uL (2.7-7.7); Neutrophil % 90.9 % (47-70); Platelet Count 279 K/mm3 (150-450); RBC Distribution Width CV 14.9 % (11.6-14.6); RBC Distribution Width SD 43.5 fl (35.1-43.9); White Blood Count 34.1 K/mm3 (4.4-11.0)
[2017-12-08 07:23] LABS: Differential Indicated SCAN CRITERIA MET; POSITIVE COUNT YES; POSITIVE DIFFERENTIAL YES; POSITIVE MORPHOLOGY YES
[2017-12-08 07:48] VITALS: O2SAT 100
[2017-12-08] MEDS: Cilostazol 50 MG Tablet PO ×2 (08:38→16:51)
[2017-12-08] MEDS: Ferrous Sulfate 325 MG Tablet PO ×2 (08:39→16:51)
[2017-12-08] MEDS: Venlafaxine XR 75 MG Capsule 225 MG PO (08:40)
[2017-12-08] MEDS: QUEtiapine 100 MG Tablet 200 MG PO (08:40)
[2017-12-08] MEDS: hydrOXYzine PAM 25 MG Capsule PO (08:41)
[2017-12-08] MEDS: Pyridoxine HCl 100 MG Tablet PO (08:41)
[2017-12-08] MEDS: APIXABAN 5 MG TABLET PO ×2 (08:42→23:18)
[2017-12-08 08:49] VITALS: BP 113/61; PULSE 106; RESP 20; TEMP 37.1; O2SAT 98
[2017-12-08] MEDS: Nystatin Powder 15gm Bottle 1 APPLIC TOPICAL ×2 (10:40→23:18)
[2017-12-08 11:40] LABS: Bedside Glucose 115 mg/dL (70-110)
--- NOTE | 2017-12-08 12:49 | PCM.PROGNOTE ---
<Adolfo Duong - Last Filed: 12/08/17 12:49> Patient Problems: Active and Suspected Problems UTI (urinary tract infection) (Acute) Sepsis (Acute) Subjective: pt overall not improved. She has continued to pick at her chronic wounds. she feels weak/tired. She denies fever/chills. No SOB, cough. - Physical Exam General: Alert, Oriented x3, Cooperative HEENT: Atraumatic, PERRLA, EOMI, Normocephalic Neck: Supple, No JVD, Negative Carotid Bruits Lungs: Clear to auscultation, Normal air movement Cardiovascular: Regular rate, No murmurs Abdomen: Bowel Sounds Present, Soft, Non Tender, Obese Extremities: No edema, Capillary Refill Less than 3 Seconds, - - all over excoriations, picking. Do not appear infected. LLE s/p BKA does not look infected. Right charcot foot examined, no infectious process appreciated. Skin: No rashes, No breakdown Musculoskeletal: No Tenderness to Palpation of Joints or Extremities Neurological: Cranial nerves II-XII grossly intact Psych/Mental Status: Normal Affect, Appropriate, Alert and oriented to time, place, person, mood and affect Vital Signs Temp Pulse Resp BP Pulse Ox 98.7 F 106 H 20 H 113/61 98 12/08/17 08:49 12/08/17 08:49 12/08/17 08:49 12/08/17 08:49 12/08/17 08:49 Oxygen Flow Rate (L/min) 2 Oxygen Delivery Method Nasal Cannula Weight: 368 lb 13.334 oz Body Mass Index (BMI) 57.7 Intake and Output for Last 24 Hours 12/06/17 12/07/17 12/08/17 23:59 23:59 23:59 Intake Total 623 / 623 2544 / 2544 240 / 240 Output Total 360 / 360 450 / 450 250 / 250 Balance 263 / 263 2094 / 2094 -10 / -10 Laboratory Tests Past 24 Hrs 12/07/17 12/08/17 12/08/17 06:15 05:25 05:25 WBC 34.1 H* RBC 3.30 L Hgb 8.4 L Hct 26.3 L MCV 79.7 L MCH 25.5 L MCHC 31.9 L RDW 14.9 H RDW Differential 43.5 Plt Count 279 MPV 9.2 Immature Gran % (Auto) 0.800 Neut % (Auto) 90.9 H Lymph % (Auto) 2.5 L [place] % (Auto) 4.6 Eos % (Auto) 1.1 Baso % (Auto) 0.1 Absolute Neuts (auto) 31.0 H Absolute Lymphs (auto) 0.86 Total Counted Not Reportable Differential Comment SCANNED Diff Path Review May foll Sodium 134 L Potassium 4.3 Chloride 102 Carbon Dioxide 18.0 L Anion Gap 14 BUN 66 H Creatinine 2.55 H Estim Creat Clear Calc 22.81 Est GFR (MDRD) Af Amer 25 L Est GFR (MDRD) Non-Af 20 L BUN/Creatinine Ratio 25.9 H Glucose 94 Calcium 8.3 L POC Glucose 12/08/17 12/08/17 12/07/17 11:25 07:07 22:46 POC Glucose 115 H 106 111 H 12/07/17 16:21 POC Glucose 85 Medical Necessity - Tobacco Use Smoking Status: Former smoker Tobacco Use: Non-smoker Assessment/Plan All Active Problems Osteomyelitis of foot, right, acute (Acute) UTI (urinary tract infection) (Acute) Sepsis (Acute) Cellulitis of right foot (Acute) Diabetic ulcer of right foot (Acute) MSSA (methicillin susceptible Staphylococcus aureus) (Resolved) Mycotic cystitis (Resolved) Osteomyelitis (Resolved) 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 Acute sepsis 2/2 UTI 2/2 chronic indwelling salgado - culture with Enterococcus, not VRE, on unasyn - pt tolerating. Leukocytosis continues to rise despite antibiotic therapy. -follow blood cultures -ID consulted -Oncology consulted as their is concern that there may be a noninfectious etiology complicating this. -inspected other wounds, they do not appear acutely inflamed, however we could not get to her back, she is unable to roll. 2. Chronic wounds - wound care consulted. Some self inflicted. Perineal wounds worsened with urinary contamination. -these do not appear infected 3. CKDIV - does not appear to be above baseline 4. DMt2 - continue insulin + SSI 5. PVD - on pletal. 6. Bipolar disorder - continue home meds 7. Severe debility, deconditioning - pt refused PT. She has had a prior panniculectomy. May need to see plastics again for severe obesity and chronic wounds. DVT ppx: on eliquis DC planning: return to snf when appropriate This patient was seen by Adolfo Duong PA-C under the supervision of Doctor Luca. <Isac Segovia - Last Filed: 12/08/17 13:52> Subjective: Seen and examined with Adolfo AGUILERA. Agree with above documentation. She has continual speaking habit and she has follow-up wound on abdomen, and chest and thigh. - Physical Exam General: Alert, Oriented x3, Cooperative HEENT: Atraumatic, PERRLA, EOMI, Normocephalic Neck: Supple, No JVD, Negative Carotid Bruits Lungs: Clear to auscultation, Diminished Cardiovascular: Regular rate, Normal S1, Normal S2, No murmurs Abdomen: Bowel Sounds Present, Soft, Non Tender Extremities: No edema, Capillary Refill Less than 3 Seconds, - Skin: No rashes, No breakdown Musculoskeletal: No Tenderness to Palpation of Joints or Extremities, Arthritic Changes, Muscle Wasting, - - Extremities and abdomen has fat panniculus. Muscle atrophy of shoulder and pelvic girdle. Neurological: Cranial nerves II-XII grossly intact Psych/Mental Status: Normal Affect, Appropriate Vital Signs Temp Pulse Resp BP Pulse Ox 98.7 F 106 H 20 H 113/61 98 12/08/17 08:49 12/08/17 08:49 12/08/17 08:49 12/08/17 08:49 12/08/17 08:49 Oxygen Flow Rate (L/min) 2 Oxygen Delivery Method Nasal Cannula Weight: 368 lb 13.334 oz Body Mass Index (BMI) 57.7 Intake and Output for Last 24 Hours 12/06/17 12/07/17 12/08/17 23:59 23:59 23:59 Intake Total 623 / 623 2544 / 2544 240 / 240 Output Total 360 / 360 450 / 450 250 / 250 Balance 263 / 263 2094 / 2094 -10 / -10 Laboratory Tests Past 24 Hrs 12/07/17 12/08/17 12/08/17 06:15 05:25 05:25 WBC 34.1 H* RBC 3.30 L Hgb 8.4 L Hct 26.3 L MCV 79.7 L MCH 25.5 L MCHC 31.9 L RDW 14.9 H RDW Differential 43.5 Plt Count 279 MPV 9.2 Immature Gran % (Auto) 0.800 Neut % (Auto) 90.9 H Lymph % (Auto) 2.5 L [place] % (Auto) 4.6 Eos % (Auto) 1.1 Baso % (Auto) 0.1 Absolute Neuts (auto) 31.0 H Absolute Lymphs (auto) 0.86 Total Counted Not Reportable Differential Comment SCANNED Diff Path Review May foll Sodium 134 L Potassium 4.3 Chloride 102 Carbon Dioxide 18.0 L Anion Gap 14 BUN 66 H Creatinine 2.55 H Estim Creat Clear Calc 22.81 Est GFR (MDRD) Af Amer 25 L Est GFR (MDRD) Non-Af 20 L BUN/Creatinine Ratio 25.9 H Glucose 94 Calcium 8.3 L POC Glucose 12/08/17 12/08/17 12/07/17 11:25 07:07 22:46 POC Glucose 115 H 106 111 H 12/07/17 16:21 POC Glucose 85 Assessment/Plan This patient was seen in conjunction with Adolfo AGUILERA. I have independently interviewed and examined the patient and reviewed pertinent history, examination findings, laboratory and plan of management. I have reviewed the note and agree with the documented findings with the few additional points. In brief, patient is admitted for sepsis secondary to complicated UTI with chronic indwelling Salgado catheter. Urine culture shows gram-positive cocci 11,000-25,000 most probably contaminated or partially treated range. Previous urine culture of 09/12/2017 shows VRE, staph aureus and Morganella morganii. Into best on antibiotic sensitivity, patient started on Unasyn. Patient is tolerating well. Later on it can be switched to amoxicillin. Patient continues to have leukocytosis and is getting worse even though she is on broad-spectrum antibiotic Unasyn, suspect noninfectious cause. Patient needs wound care, therefore wound care nurse consult, ID consult and hematology consult. I have discussed my assessment with Adolfo AGUILERA and orders have been reviewed. Code Visit Inpatient E&M: 40186 Subs Hosp L3
[2017-12-08 16:43] VITALS: BP 115/61; PULSE 101; RESP 18; TEMP 37.1; O2SAT 100
[2017-12-08] MEDS: Insulin Lispro 100 UNIT/ML INSULN.PEN SQ (16:56)
[2017-12-08 17:06] LABS: Bedside Glucose 152 mg/dL (70-110)
[2017-12-08 22:00] VITALS: BP 117/68; PULSE 98; RESP 16; TEMP 37.1; O2SAT 100
[2017-12-08] MEDS: Pravastatin 20 MG Tablet 10 MG PO (23:18)
[2017-12-08] MEDS: hydrOXYzine PAM 25 MG Capsule 50 MG PO (23:18)
[2017-12-08] MEDS: Glucerna Shake 120 ML LIQUID PO (23:19)
[2017-12-08 23:46] LABS: Bedside Glucose 149 mg/dL (70-110)
[2017-12-09 04:00] VITALS: BP 109/71; PULSE 95; RESP 16; TEMP 37.1; O2SAT 100
[2017-12-09 06:38] LABS: Absolute Lymphocyte Count 1.11 X10^3/ul (0.83-4.51); Absolute Neutrophil Count 34.6 X10^3/uL (2.0-7.7); Basophil# 0.05 X10^3/uL; Basophil% 0.1 % (0-1); Eosinophils% 1.5 % (0-5); Hematocrit 24.7 % (37-47); Lymphocyte # 1.11 X10^3/ul (4.0); Lymphocyte % 2.8 % (19-41); Mean Corp Hgb Conc 32.4 g/gl (32-36); Mean Corpuscular Hgb 25.7 pg (27.0-32.0); Mean Corpuscular Volume 79.4 fL (81-99); Mean Platelet Vol. 9.2 fl (6.2-12.0); Monocyte# 2.35 X10^3/uL; Neutrophil # 34.59 X10^3/uL (2.7-7.7); Neutrophil % 88.6 % (47-70); Platelet Count 329 K/mm3 (150-450); RBC Distribution Width CV 15.2 % (11.6-14.6); RBC Distribution Width SD 44.6 fl (35.1-43.9); Red Blood Count 3.11 M/mm3 (4.2-5.4)
[2017-12-09 06:43] LABS: Anion Gap 14 (5-15); BUN 73 mg/dL (7-18); BUN/Creat Ratio 25.2 RATIO (10-20); Calcium,Total 8.4 mg/dL (8.5-10.1); Chloride 102 mmol/L (98-107); EST Glomerular Filtration Rate 18 mL/min (>60); Est Glom Filt Rate - Afr Amer 21 mL/min (>60); Estimated Creatinine Clearance 20.06 ml/min; Glucose 136 mg/dL (74-106); Potassium 4.2 mmol/L (3.5-5.1); Sodium Level 133 mmol/L (136-145)
[2017-12-09 06:57] LABS: Differential Indicated SCAN CRITERIA MET; POSITIVE COUNT YES; POSITIVE DIFFERENTIAL YES; POSITIVE MORPHOLOGY YES; White Blood Count 39.1 K/mm3 (4.4-11.0)
[2017-12-09 07:25] LABS: Differential Comment SCANNED
[2017-12-09 07:51] LABS: Bedside Glucose 135 mg/dL (70-110)
[2017-12-09 07:57] VITALS: O2SAT 97
[2017-12-09] MEDS: Ferrous Sulfate 325 MG Tablet PO ×2 (08:41→17:01)
[2017-12-09] MEDS: Cilostazol 50 MG Tablet PO ×2 (08:41→20:32)
[2017-12-09] MEDS: Calcium Carb/Vitamin D 1 TABLET Tablet PO ×2 (08:42→17:01)
[2017-12-09] MEDS: Multivitamins,Therapeutic Tablet 1 TABLET PO (08:42)
[2017-12-09] MEDS: Ascorbic Acid 500 MG Tablet PO ×2 (08:43→17:01)
[2017-12-09] MEDS: Nystatin Powder 15gm Bottle 1 APPLIC TOPICAL ×2 (09:01→23:39)
[2017-12-09] MEDS: Glucerna Shake 120 ML LIQUID PO ×3 (09:01→17:01)
[2017-12-09] MEDS: QUEtiapine 100 MG Tablet 200 MG PO (09:02)
[2017-12-09] MEDS: Venlafaxine XR 75 MG Capsule 225 MG PO (09:02)
[2017-12-09] MEDS: APIXABAN 5 MG TABLET PO ×2 (09:02→23:43)
[2017-12-09] MEDS: Pyridoxine HCl 100 MG Tablet PO (09:03)
[2017-12-09] MEDS: hydrOXYzine PAM 25 MG Capsule PO (09:03)
[2017-12-09] MEDS: 0.9% Normal Saline 1,000 ML 100 ML IV ×2 (09:07→20:10)
--- NOTE | 2017-12-09 10:08 | NURSING ---
wound photo: abdomen
--- NOTE | 2017-12-09 10:34 | CASEMGMT ---
Addendum entered by Anette Long 12/09/17 11:28: SW updated Edwina at [facility] of this. Original Note: Social Work Note Physician states that pt is not ready for discharge today. Pt is able to return to [facility] when medically cleared. Green sheet is on chart. Plan: Return to [facility] when medically cleared Anette Long VACUUM TECHNICIAN, PRINT W[employer]
--- NOTE | 2017-12-09 11:05 | RAD_ITS ---
STUDY: X-RAY CHEST REASON FOR EXAM: Female, 62 years old. Increased short of breath TECHNIQUE: Single AP portable view of the chest. COMPARISON: December 06, 2017 FINDINGS: There is an elevated right hemidiaphragm. The lungs are clear and expanded. There is no demonstrated pleural abnormality. There is mild cardiac enlargement. Normal mediastinum and dayana. Normal visualized pulmonary arteries. Normal visualized aortic arch and descending thoracic aorta. Normal visualized thoracic spine. Normal visualized ribs, clavicles, and shoulders. There is no demonstrated abnormality of the visualized soft tissue structures of the upper abdomen. RAD/Chest 1 View (Portable) IMPRESSION: There has been no change since the prior study. Electronically Signed: Pb Vazquez MD at 16:47 EDT , Service support ,
[2017-12-09 11:55] VITALS: BP 108/68; PULSE 94; RESP 16; TEMP 36.9
[2017-12-09 12:07] VITALS: BP 110/73; PULSE 94; RESP 16; TEMP 37
[2017-12-09 12:16] LABS: Bedside Glucose 132 mg/dL (70-110)
--- NOTE | 2017-12-09 13:39 | CON.PCM_ITS ---
Reason for Consult: Marked leukocytosis Consulted by: Dr. Zheng History of Present Illness: The patient is a 62 year old F [] This is a 62-year-old white female with multiple comorbidities including morbid obesity, chronic skin disorder with some skin breakdown in her groin area as well as a chronic Shay catheter who was admitted from an extended care facility. She is currently alert but generally weak denies any cardiopulmonary distress. She is somewhat of a vague historian, she was placed on Unasyn for concern a urinary tract infection. Blood cultures were obtained as well as a urine culture blood cultures so far remain negative. Urine culture grew Enterococcus faecalis. She states that she recently was diagnosed with C. difficile disease but unfortunately cannot get that information through the records from the extended care facility. She states that she has loose stools. Interestingly she does have a marked leukocytosis. 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) Allergies/Adverse Reactions: Allergies adhesive Allergy (Verified 12/06/17 12:50) Rash cefadroxil hydrate [From Duricef] Allergy (Verified 12/06/17 12:50) Rash cephalexin monohydrate [From Keflex] Allergy (Verified 12/06/17 12:50) Rash venom-honey bee [bee venom (honey bee)] Allergy (Verified 12/06/17 12:50) Rash Home Medications: Ambulatory Orders Medication Instructions Recorded Ascorbic Acid [Vitamin C] 500 mg PO BIDCM #30 tablet 10/10/13 Ferrous Sulfate 325 mg PO BIDCM 01/21/15 Acetaminophen [Tylenol Tablet] 650 mg PO Q4H PRN 03/20/17 Bisacodyl 10 mg RC DAILY PRN PRN 03/20/17 Cholecalciferol (Vitamin D3) 2,000 unit PO DAILY 09/12/17 [Vitamin D3] Cilostazol [Pletal] 50 mg PO BIDAC 09/12/17 Hydroxyzine HCl 25 mg PO DAILY 09/12/17 Multivitamins,Therapeutic 1 tablet PO DAILY 09/12/17 [Multivitamin] Apixaban [Eliquis] 5 mg PO BID tablet 09/18/17 Calcium Carbonate/Vitamin D3 1 tab PO BID 12/06/17 [Calcium 600-Vit D3 200 Tablet] Epoetin Carlos Eduardo [Procrit] 10,000 unit SQ QWEEK PRN 12/06/17 Guaifenesin Dm [Robitussin Dm] 10 ml PO Q6H PRN PRN 12/06/17 Hydroxyzine Pamoate [Vistaril] 50 mg PO QHS 12/06/17 Insulin Glargine,Hum.rec.anlog 40 unit SQ QHS 12/06/17 [Basaglar Kwikpen U-100] Insulin Glargine,Hum.rec.anlog 55 unit SQ DAILY 12/06/17 [Basaglar Kwikpen U-100] L. Acidophilus/Pectin, [place] 1 cap PO DAILY 12/06/17 [Acidophilus Capsule] Magnesium Hydroxide [Milk Of 30 ml PO DAILY PRN PRN 12/06/17 Magnesia] Nystatin Powder [Mycostatin Powder] 1 applic TOPICAL BID 12/06/17 Paroxetine HCl [Paxil] 20 mg PO DAILY 12/06/17 Pravastatin Sodium [Pravachol] 10 mg PO QHS 12/06/17 Pyridoxine HCl [Vitamin B-6] 100 mg PO DAILY 12/06/17 Quetiapine Fumarate [Seroquel] 200 mg PO DAILY 12/06/17 Venlafaxine HCl [Venlafaxine HCl 225 mg PO DAILY 12/06/17 ER] - Social History SMOKING STATUS:: Former smoker Vital Signs Temp Pulse Resp BP Pulse Ox 98.6 F 94 16 110/73 97 12/09/17 12:07 12/09/17 12:07 12/09/17 12:07 12/09/17 12:07 12/09/17 07:57 Oxygen Flow Rate (L/min) 2 Oxygen Delivery Method Nasal Cannula Weight: 167.3 kg Body Mass Index (BMI) 57.7 Laboratory Tests Past 24 Hrs 12/09/17 12/09/17 05:50 05:50 WBC 39.1 H* RBC 3.11 L Hgb 8.0 L Hct 24.7 L MCV 79.4 L MCH 25.7 L MCHC 32.4 RDW 15.2 H RDW Differential 44.6 H Plt Count 329 MPV 9.2 Immature Gran % (Auto) 1.000 H Neut % (Auto) 88.6 H Lymph % (Auto) 2.8 L [place] % (Auto) 6.0 Eos % (Auto) 1.5 Baso % (Auto) 0.1 Absolute Neuts (auto) 34.6 H Absolute Lymphs (auto) 1.11 Total Counted Not Reportable Differential Comment SCANNED Diff Path Review May foll Sodium 133 L Potassium 4.2 Chloride 102 Carbon Dioxide 17.0 L Anion Gap 14 BUN 73 H Creatinine 2.90 H Estim Creat Clear Calc 20.06 Est GFR (MDRD) Af Amer 21 L Est GFR (MDRD) Non-Af 18 L BUN/Creatinine Ratio 25.2 H Glucose 136 H Calcium 8.4 L - Other Studies Radiology: [] Other Studies: [] Route of nutrition/ use of supplements: [] Nutritional Intake: [] IV Site: [] Shay Catheter: [] Alert chronically ill-appearing lungs are clear heart exam S1-S2 abdomen is obese but soft Shay catheter in place she does have some skin changes chronic skin changes in her abdominal area as well as in her arms - Assessment/Plan Antibiotics: [] Assessment/Plan: [] Active and Suspected Problems UTI (urinary tract infection) (Acute) Sepsis (Acute) Marked leukocytosis. Of concern is C. difficile disease she is from an extended care facility. At this point I would empirically start oral vancomycin 125 mg 4 times daily obtain a stool study for C. difficile and also obtain blood work for tomorrow. She does have evidence of renal disease.
[2017-12-09 13:44] LABS: Pathologist Review Reviewed
[2017-12-09 13:57] LABS: Pathologist Review Reviewed
[2017-12-09 14:03] LABS: Pathologist Review Reviewed
--- NOTE | 2017-12-09 14:14 | PN_ITS ---
<Adolfo Duong - Last Filed: 12/09/17 14:10> Patient Problems: Active and Suspected Problems UTI (urinary tract infection) (Acute) Sepsis (Acute) Neutrophilic leukocytosis (Acute) Subjective: Pt resting comfortably in bed. She complains of pain in her chronic scratching wounds. She denies back pain. She denies fever or chills. Denies SOB/Cough/ salgado discomfort/abdominal pain/nausea/vomiting. - Physical Exam General: Alert, Oriented x3, Cooperative HEENT: Atraumatic, PERRLA, EOMI, Normocephalic Neck: Supple, No JVD, Negative Carotid Bruits Lungs: Clear to auscultation, Normal air movement Cardiovascular: Regular rate, No murmurs Abdomen: Bowel Sounds Present, Soft, Non Tender Extremities: No edema, Capillary Refill Less than 3 Seconds Skin: No rashes, No breakdown Musculoskeletal: No Tenderness to Palpation of Joints or Extremities Neurological: Cranial nerves II-XII grossly intact Psych/Mental Status: Normal Affect, Appropriate, Alert and oriented to time, place, person, mood and affect Vital Signs Temp Pulse Resp BP Pulse Ox 98.6 F 94 16 110/73 97 12/09/17 12:07 12/09/17 12:07 12/09/17 12:07 12/09/17 12:07 12/09/17 07:57 Oxygen Flow Rate (L/min) 2 Oxygen Delivery Method Nasal Cannula Weight: 368 lb 13.334 oz Body Mass Index (BMI) 57.7 Intake and Output for Last 24 Hours 12/07/17 12/08/17 12/09/17 23:59 23:59 23:59 Intake Total 2544 / 2544 1099 / 1099 Output Total 450 / 450 525 / 525 340 / 340 Balance 2094 / 2094 574 / 574 -340 / -340 Laboratory Tests Past 24 Hrs 12/07/17 12/08/17 12/09/17 06:15 05:25 05:50 WBC 39.1 H* RBC 3.11 L Hgb 8.0 L Hct 24.7 L MCV 79.4 L MCH 25.7 L MCHC 32.4 RDW 15.2 H RDW Differential 44.6 H Plt Count 329 MPV 9.2 Immature Gran % (Auto) 1.000 H Neut % (Auto) 88.6 H Lymph % (Auto) 2.8 L [place] % (Auto) 6.0 Eos % (Auto) 1.5 Baso % (Auto) 0.1 Absolute Neuts (auto) 34.6 H Absolute Lymphs (auto) 1.11 Total Counted Not Reportable Differential Comment SCANNED Diff Path Review Reviewed Reviewed Reviewed Sodium Potassium Chloride Carbon Dioxide Anion Gap BUN Creatinine Estim Creat Clear Calc Est GFR (MDRD) Af Amer Est GFR (MDRD) Non-Af BUN/Creatinine Ratio Glucose Calcium 12/09/17 05:50 WBC RBC Hgb Hct MCV MCH MCHC RDW RDW Differential Plt Count MPV Immature Gran % (Auto) Neut % (Auto) Lymph % (Auto) [place] % (Auto) Eos % (Auto) Baso % (Auto) Absolute Neuts (auto) Absolute Lymphs (auto) Total Counted Differential Comment Diff Path Review Sodium 133 L Potassium 4.2 Chloride 102 Carbon Dioxide 17.0 L Anion Gap 14 BUN 73 H Creatinine 2.90 H Estim Creat Clear Calc 20.06 Est GFR (MDRD) Af Amer 21 L Est GFR (MDRD) Non-Af 18 L BUN/Creatinine Ratio 25.2 H Glucose 136 H Calcium 8.4 L POC Glucose 12/09/17 12/09/17 12/08/17 12:12 07:02 23:31 POC Glucose 132 H 135 H 149 H 12/08/17 16:38 POC Glucose 152 H Medical Necessity - Tobacco Use Smoking Status: Former smoker Tobacco Use: Non-smoker Assessment/Plan All Active Problems Osteomyelitis of foot, right, acute (Acute) UTI (urinary tract infection) (Acute) Sepsis (Acute) Neutrophilic leukocytosis (Acute) Cellulitis of right foot (Acute) Diabetic ulcer of right foot (Acute) MSSA (methicillin susceptible Staphylococcus aureus) (Resolved) Mycotic cystitis (Resolved) Osteomyelitis (Resolved) 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 Acute sepsis 2/2 UTI 2/2 chronic indwelling salgado - culture with Enterococcus , not VRE, on unasyn - pt tolerating. Leukocytosis continues to rise despite antibiotic therapy. -follow blood cultures -ID consulted, will wait for final recommendation. -Oncology consult - d/w Dr. Garcia - leukocytosis likely reactive. -inspected other wounds, they do not appear acutely inflamed, however we could not get to her back, she is unable to roll. 2. Chronic wounds - wound care consulted. Some self inflicted. Perineal wounds worsened with urinary contamination. -these do not appear infected 3. CKDIV - may be somewhat above baseline will provide gentle IV fluids with normal saline. Monitor sodium. 4. DMt2 - continue insulin + SSI. Controlled. 5. PVD - on pletal. 6. Bipolar disorder - continue home meds 7. Severe debility, deconditioning - pt refused PT. She has had a prior panniculectomy. May need to see plastics again for severe obesity and chronic wounds. DVT ppx: on eliquis DC planning: return to snf when appropriate This patient was seen by Adolfo Duong PA-C under the supervision of Doctor May. <Milo Olvera F - Last Filed: 12/09/17 15:46> - Physical Exam Vital Signs Temp Pulse Resp BP Pulse Ox 98.6 F 94 16 110/73 97 12/09/17 12:07 12/09/17 12:07 12/09/17 12:07 12/09/17 12:07 12/09/17 07:57 Oxygen Flow Rate (L/min) 2 Oxygen Delivery Method Nasal Cannula Weight: 368 lb 13.334 oz Body Mass Index (BMI) 57.7 Intake and Output for Last 24 Hours 12/07/17 12/08/17 12/09/17 23:59 23:59 23:59 Intake Total 2544 / 2544 1099 / 1099 Output Total 450 / 450 525 / 525 340 / 340 Balance 2094 / 2094 574 / 574 -340 / -340 Laboratory Tests Past 24 Hrs 12/07/17 12/08/17 12/09/17 06:15 05:25 05:50 WBC 39.1 H* RBC 3.11 L Hgb 8.0 L Hct 24.7 L MCV 79.4 L MCH 25.7 L MCHC 32.4 RDW 15.2 H RDW Differential 44.6 H Plt Count 329 MPV 9.2 Immature Gran % (Auto) 1.000 H Neut % (Auto) 88.6 H Lymph % (Auto) 2.8 L [place] % (Auto) 6.0 Eos % (Auto) 1.5 Baso % (Auto) 0.1 Absolute Neuts (auto) 34.6 H Absolute Lymphs (auto) 1.11 Total Counted Not Reportable Differential Comment SCANNED Diff Path Review Reviewed Reviewed Reviewed Sodium Potassium Chloride Carbon Dioxide Anion Gap BUN Creatinine Estim Creat Clear Calc Est GFR (MDRD) Af Amer Est GFR (MDRD) Non-Af BUN/Creatinine Ratio Glucose Calcium 12/09/17 05:50 WBC RBC Hgb Hct MCV MCH MCHC RDW RDW Differential Plt Count MPV Immature Gran % (Auto) Neut % (Auto) Lymph % (Auto) [place] % (Auto) Eos % (Auto) Baso % (Auto) Absolute Neuts (auto) Absolute Lymphs (auto) Total Counted Differential Comment Diff Path Review Sodium 133 L Potassium 4.2 Chloride 102 Carbon Dioxide 17.0 L Anion Gap 14 BUN 73 H Creatinine 2.90 H Estim Creat Clear Calc 20.06 Est GFR (MDRD) Af Amer 21 L Est GFR (MDRD) Non-Af 18 L BUN/Creatinine Ratio 25.2 H Glucose 136 H Calcium 8.4 L POC Glucose 12/09/17 12/09/17 12/08/17 12:12 07:02 23:31 POC Glucose 132 H 135 H 149 H 12/08/17 16:38 POC Glucose 152 H Assessment/Plan Addendum: Dr. Olvera I personally examined the patient and reviewed the chart. I agree with the above.Her UTI is very likely secondary to her chronic salgado. C/w unasyn and ID gave a dose of PO vanc for the possibility of C. diff and PCR was ordered if she has a loose stool. Her other chronic wounds appear normal and not infected. appreciate both oncology and ID recs. F/u iron studies. Code Visit Inpatient E&M: 37516 Subs Hosp L2
--- NOTE | 2017-12-09 14:21 | ONC.CONS.INP ---
Subjective Date of Service:: 12/09/17 Chief Complaint: Leukocytosis History of Present Illness: Ms. Dianne Delgado is a 62-year-old white female with multiple comorbidities including morbid obesity,poorly controlled DM, bipolar disorder, and chronic skin disorder with some skin breakdown in her groin area as well as a chronic Shay catheter who was admitted 12/06/17 from an [facility], [place] for management of UTI (enterococcus faecalis), sepsis. Blood cultures were obtained and thus far remain negative. Consult requested as she does exhibit marked leukocytosis. Upon interview, patient denies any pain at this time. Further denies dysphagia, night sweats, lumps/bumps under her arms, groin, breast masses she may have noted while bathing. C/o chronic non productive cough, although is laying nearly supine. Hesitant to let me examine her as the nurses just changed her dressings and she doesn't want anything messed up. To her knowledge, she has not used lithium in the management of bipolar disorder. Smoked 2 packs/day from age [age]. Cannot recall if she has ever undergone routine screenings such as mammograms or colonoscopy. Family history positive for maternal aunt with a form of leukemia. 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 2 diabetes mellitus with diabetic polyneuropathy (Chronic) Past Medical/Surgical History: Past Medical History - Most Recent Inpatient Visit Past Medical History Start: 12/06/17 15:38 Text: Status: Complete Freq: ONCE Protocol: Document 12/06/17 17:55 [facility] (Rec: 12/06/17 17:58 [facility] [id number]) BMI Required to complete PMH What is Patient's BMI 57.8 Past Medical History Unable History Recalled Yes Query Text:Pt Unable/Family Not Present Neurologic Medical History Hx Stroke/TIA No Hx Dementia/Alzheimer's No Hx Parkinson's Disease No Hx Seizures No Hx Multiple Sclerosis No Hx Migraines Yes: IN THE PAST Cardiac Medical History VTE Present on Admission No Hx of Deep Vein Thrombosis/VTE/PE No Hx Hypertension Yes: ON LISINOPRIL Hx Chest Pain/Angina No Hx Heart Attack No Hx Cardiac Surgery/Stents/Etc. No Hx Heart Failure No Hx Pacemaker/AICD No Hx Irregular Heartbeat and/or Afib No Hx Anticoagulant Therapy Yes: Eliquis Query Text:(Coumadin, Aspirin, Plavix, Xarelto, etc.) Hx Pain in Legs when Walking/Leg Cramps No Respiratory Medical History Hx COPD No Hx Emphysema No Hx Smoking Yes Smoking Status Former smoker Tobacco Use Non-smoker Hx Smoking Cessation Counseling No Hx Smoking Exposure No Hx Tobacco Use in last 12 months No Hx of Pipe Smoking No Hx Sleep Apnea No CPAP No BIPAP No Do you snore loudly (louder than talking No or can be heard through closed doors)? Do you often feel tired/ fatigued/ No sleepy during daytime? Has anyone observed you stop breathing No during sleep? STOP Results Negative GI Medical History Hx Ulcer No Hx Hepatitis No Hx Cirrhosis No Hx GI Bleed No Hx Unplanned Weight Loss No Genitourinary Medical History Indwelling Catheter in Place on Arrival/ Yes Admission Hx Renal Disease Yes: CKD stage 3 Hx Dialysis No Musculoskeletal History Hx Arthritis Yes Hx Rheumatoid Arthritis No Endocrine Medical History Hx Diabetes Yes: ON INSULIN Hx Thyroid Disease No Hematologic Medical History Patient unable to answer at this time ( Yes ie. confused, unresponsive etc...) Psycho/Social Medical History Hx Depression Yes Hx Anxiety Yes Hx Behavior Disorder Yes: bipolar depression, personality disorder Hx Alcohol Use No Hx Substance Use No Other Medical History Hx Blood Disorders No Hx Anemia Yes Hx Cancer No Hx Drug Resistant Organism No Wound/Pressure Injury Present on Arrival Yes /Admission Query Text:If yes, chart assessment in Shift/Clinical Findings Central Line/PICC/VAD Present on Arrival No /Admission Methicillin Resistant Staphylococcus aureus Screening Active MRSA No Risk for Readmission Number of Risk Factors 6 At Risk for Readmission Patient is At Risk For Readmission Patient is eligible for Call Back Y Maternal Family History: Diabetes, Heart Disease, Hypertension Paternal Family History: - - epilepsy Sibling Family History: Diabetes - Social History Lives: Alone Smoking Status: Former smoker Tobacco Use: Non-smoker Alcohol: None Drugs: None Allergies/Adverse Reactions: Allergy/AdvReac Type Severity Reaction Status Date / Time adhesive Allergy Rash Verified 12/06/17 12:50 cefadroxil hydrate Allergy Rash Verified 12/06/17 12:50 [From Duricef] cephalexin monohydrate Allergy Rash Verified 12/06/17 12:50 [From Keflex] venom-honey bee Allergy Rash Verified 12/06/17 12:50 [bee venom (honey bee)] Review of Systems Constitutional:: Denies: Fever, Sweats, Weight loss, Appetite change, Chills Cardiovascular:: Reports: Shortness of breath. Denies: Chest pain, Palpitations, Orthopnea, PND Respiratory: Reports: Cough. Denies: Hemoptysis, Shortness of Breath, Wheezing Gastrointestinal:: Denies: Abdominal pain, Nausea, Vomiting, Diarrhea, Constipation, Melena, Hematochezia Genitourinary: Denies: Dysuria, Hematuria, Urinary frequency, Flank pain Musculoskeletal:: Denies: Back pain, Myalgia, Arthralgia Skin: Reports: Wounds. Denies: Rash, Skin Changes Neurological:: Denies: Headache, Dizziness, Visual changes, Tinnitus, Hearing loss Psychiatric: Denies: Anxiety, Depression, Homicidal Ideations, Suicidal Ideations Vital Signs Height 5 ft 7 in Weight: 368 lb 13.334 oz Weight in Pounds 368.8 lbs Pulse Ox 97 Temperature 98.6 F Pulse Rate 94 Respiratory Rate 16 Blood Pressure [BP] 110/73 Blood Pressure 109/71 Blood Pressure Position Semi-Fowlers - Physical Exam General: Alert, Oriented x3, No apparent distress, Non-Cooperative HEENT: Atraumatic, Normocephalic Oropharynx:: Negative for: Dry mucosa, Ulcerated lesions Neck:: Supple, Trachea midline. Negative for: JVD, bilateral Cardiac:: Regular rate, Regular rhythm, Normal S1, Normal S2. Negative for: Murmur Lungs: Clear to auscultation, Excusion symmetrical. Negative for: Rhonchi, Wheezes Abdomen:: Bowel sounds x 4, Soft, Non-tender, Non-distended, Obese. Negative for: Hepatosplenomegaly - difficult to discern d/t large body habitus Extremities:: - - LLE BKA. Negative for: Cyanosis, Edema Neurological: Neuro grossly intact Skin:: Lesions - Multiple lesions in various stages of healing scattered BUE Lower abdomen covered with multiple ABDs. Negative for: Rash, Petechiae, Ecchymosis Psychiatric:: Appropriate affect, Euthymic Lymphatics:: Negative for: Cervical lymphadenopathy, Supraclavicular lymphadenopathy, Axillary lymphadenopathy Breast:: No abnormalities noted Laboratory Data: Laboratory Tests 12/09/17 12/09/17 12/09/17 Range/Units 12:12 07:02 05:50 WBC (4.4-11.0) K/mm3 RBC (4.2-5.4) M/mm3 Hgb (12.0-15.0) g/dl Hct (37-47) % MCV (81-99) fL MCH (27.0-32.0) pg MCHC (32-36) g/gl RDW (11.6-14.6) % RDW Differential (35.1-43.9) fl Plt Count (150-450) K/mm3 MPV (6.2-12.0) fl Immature Gran % (Auto) (0.0-0.9) % Neut % (Auto) (47-70) % Lymph % (Auto) (19-41) % [place] % (Auto) (0-10) % Eos % (Auto) (0-5) % Baso % (Auto) (0-1) % Absolute Neuts (auto) (2.0-7.7) X10^3/uL Absolute Lymphs (auto) (0.83-4.51) X10^3/ul Total Counted Differential Comment Diff Path Review Sodium 133 L (136-145) mmol/L Potassium 4.2 (3.5-5.1) mmol/L Chloride 102 (98-107) mmol/L Carbon Dioxide 17.0 L (21.0-32.0) mmol/L Anion Gap 14 (5-15) BUN 73 H (7-18) mg/dL Creatinine 2.90 H (0.55-1.02) mg/dL Estim Creat Clear Calc 20.06 ml/min Est GFR (MDRD) Af Amer 21 L (>60) mL/min Est GFR (MDRD) Non-Af 18 L (>60) mL/min BUN/Creatinine Ratio 25.2 H (10-20) RATIO Glucose 136 H (74-106) mg/dL Calcium 8.4 L (8.5-10.1) mg/dL POC Glucose 132 H 135 H (70-110) mg/dL 12/09/17 12/08/17 12/08/17 Range/Units 05:50 23:31 16:38 WBC 39.1 H* (4.4-11.0) K/mm3 RBC 3.11 L (4.2-5.4) M/mm3 Hgb 8.0 L (12.0-15.0) g/dl Hct 24.7 L (37-47) % MCV 79.4 L (81-99) fL MCH 25.7 L (27.0-32.0) pg MCHC 32.4 (32-36) g/gl RDW 15.2 H (11.6-14.6) % RDW Differential 44.6 H (35.1-43.9) fl Plt Count 329 (150-450) K/mm3 MPV 9.2 (6.2-12.0) fl Immature Gran % (Auto) 1.000 H (0.0-0.9) % Neut % (Auto) 88.6 H (47-70) % Lymph % (Auto) 2.8 L (19-41) % [place] % (Auto) 6.0 (0-10) % Eos % (Auto) 1.5 (0-5) % Baso % (Auto) 0.1 (0-1) % Absolute Neuts (auto) 34.6 H (2.0-7.7) X10^3/uL Absolute Lymphs (auto) 1.11 (0.83-4.51) X10^3/ul Total Counted Not Reportable Differential Comment SCANNED Diff Path Review Reviewed Sodium (136-145) mmol/L Potassium (3.5-5.1) mmol/L Chloride (98-107) mmol/L Carbon Dioxide (21.0-32.0) mmol/L Anion Gap (5-15) BUN (7-18) mg/dL Creatinine (0.55-1.02) mg/dL Estim Creat Clear Calc ml/min Est GFR (MDRD) Af Amer (>60) mL/min Est GFR (MDRD) Non-Af (>60) mL/min BUN/Creatinine Ratio (10-20) RATIO Glucose (74-106) mg/dL Calcium (8.5-10.1) mg/dL POC Glucose 149 H 152 H (70-110) mg/dL 12/08/17 12/07/17 Range/Units 05:25 06:15 WBC (4.4-11.0) K/mm3 RBC (4.2-5.4) M/mm3 Hgb (12.0-15.0) g/dl Hct (37-47) % MCV (81-99) fL MCH (27.0-32.0) pg MCHC (32-36) g/gl RDW (11.6-14.6) % RDW Differential (35.1-43.9) fl Plt Count (150-450) K/mm3 MPV (6.2-12.0) fl Immature Gran % (Auto) (0.0-0.9) % Neut % (Auto) (47-70) % Lymph % (Auto) (19-41) % [place] % (Auto) (0-10) % Eos % (Auto) (0-5) % Baso % (Auto) (0-1) % Absolute Neuts (auto) (2.0-7.7) X10^3/uL Absolute Lymphs (auto) (0.83-4.51) X10^3/ul Total Counted Differential Comment Diff Path Review Reviewed Reviewed Sodium (136-145) mmol/L Potassium (3.5-5.1) mmol/L Chloride (98-107) mmol/L Carbon Dioxide (21.0-32.0) mmol/L Anion Gap (5-15) BUN (7-18) mg/dL Creatinine (0.55-1.02) mg/dL Estim Creat Clear Calc ml/min Est GFR (MDRD) Af Amer (>60) mL/min Est GFR (MDRD) Non-Af (>60) mL/min BUN/Creatinine Ratio (10-20) RATIO Glucose (74-106) mg/dL Calcium (8.5-10.1) mg/dL POC Glucose (70-110) mg/dL Diagnostic Data: 12/06/17 STUDY: X-RAY CHEST REASON FOR EXAM: Female, 62 years old. Mental status changes. TECHNIQUE: Single AP portable view of the chest. COMPARISON: Comparison is made with prior study dated December 05, 2015. FINDINGS: The lungs are clear and expanded. There is no demonstrated pleural abnormality. Cardiomegaly. Normal mediastinum and dayana. Normal visualized pulmonary arteries. Normal visualized aortic arch and descending thoracic aorta. Normal visualized thoracic spine. Normal visualized ribs, clavicles, and shoulders. There is no demonstrated abnormality of the visualized soft tissue structures of the upper abdomen. RAD/Chest 1 View (Portable) IMPRESSION: Cardiomegaly. Assessment and Plan 1. Leukocytosis, neutrophilic- as evidenced by WBC 39.1, ANC 34.6. Likely reactive as WBC were WNL until this acute episode of infection beginning November 2017. Would not plan further work up until active infection is resolved. Although will continue to follow CBC. 2. Anemia of chronic kidney disease- Cr 2.9. Hgb 8. Iron studies ordered. In the event she is deficient, she may benefit from dose of Venofer. 3. Chronic cough- CXR obtained 12/06/17 showed no mediastinal adenopathy or pleural abnormality otherwise. Sary Randolph, MSN, [employer], AOCNP Medications: Prescriptions This Visit Medication Instructions Recorded Calcium Carbonate/Vitamin D3 1 tab PO BID 12/06/17 [Calcium 600-Vit D3 200 Tablet] Epoetin Carlos Eduardo [Procrit] 10,000 unit SQ QWEEK PRN 12/06/17 Guaifenesin Dm [Robitussin Dm] 10 ml PO Q6H PRN PRN 12/06/17 Hydroxyzine Pamoate [Vistaril] 50 mg PO QHS 12/06/17 Insulin Glargine,Hum.rec.anlog 40 unit SQ QHS 12/06/17 [Basaglar Kwikpen U-100] Insulin Glargine,Hum.rec.anlog 55 unit SQ DAILY 12/06/17 [Basaglar Kwikpen U-100] L. Acidophilus/Pectin, Shepherd 1 cap PO DAILY 12/06/17 [Acidophilus Capsule] Magnesium Hydroxide [Milk Of 30 ml PO DAILY PRN PRN 12/06/17 Magnesia] Nystatin Powder [Mycostatin Powder] 1 applic TOPICAL BID 12/06/17 Paroxetine HCl [Paxil] 20 mg PO DAILY 12/06/17 Pravastatin Sodium [Pravachol] 10 mg PO QHS 12/06/17 Pyridoxine HCl [Vitamin B-6] 100 mg PO DAILY 12/06/17 Quetiapine Fumarate [Seroquel] 200 mg PO DAILY 12/06/17 Venlafaxine HCl [Venlafaxine HCl 225 mg PO DAILY 12/06/17 ER] Medications Added to Medication List This Visit Category Date Time Status 0.9% Normal Saline 1,000 ml Med 12/09/17 08:45 Active IV 100 mls/hr Primary Care Provider: Leroy Marie Referring Provider: - Problem List (1) Neutrophilic leukocytosis Status: Acute
--- NOTE | 2017-12-09 14:28 | CON.PCM_ITS ---
Subjective Date of Service:: 12/09/17 Chief Complaint: Leukocytosis History of Present Illness: Ms. Dianne Delgado is a 62-year-old white female with multiple comorbidities including morbid obesity,poorly controlled DM, bipolar disorder, and chronic skin disorder with some skin breakdown in her groin area as well as a chronic Shay catheter who was [facility] 12/06/17 [facility] [place] for management of UTI (enterococcus faecalis), sepsis. Blood cultures were obtained and thus far remain negative. Consult requested as she does exhibit marked leukocytosis. Upon interview, patient denies any pain at this time. Further denies dysphagia, night sweats, lumps/bumps under her arms, groin, breast masses she may have noted while bathing. C/o chronic non productive cough, although is laying nearly supine. Hesitant to let me examine her as the nurses just changed her dressings and she doesn't want anything messed up. To her knowledge, she has not used lithium in the management of bipolar disorder. Smoked 2 packs/day from age [age]. Cannot recall if she has ever undergone routine screenings such as mammograms or colonoscopy. Family history positive for maternal aunt with a form of leukemia. 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 2 diabetes mellitus with diabetic polyneuropathy (Chronic) Past Medical/Surgical History: Past Medical History - Most Recent Inpatient Visit Past Medical History Start: 12/06/17 15: 38 Text: Status: Complete Freq: ONCE Protocol: Document 12/06/17 17:55 [facility] (Rec: 12/06/17 17:58 [facility] [id number]) BMI Required to complete PMH What is Patient's BMI 57.8 Past Medical History Unable History Recalled Yes Query Text:Pt Unable/Family Not Present Neurologic Medical History Hx Stroke/TIA No Hx Dementia/Alzheimer's No Hx Parkinson's Disease No Hx Seizures No Hx Multiple Sclerosis No Hx Migraines Yes: IN THE PAST Cardiac Medical History VTE Present on Admission No Hx of Deep Vein Thrombosis/VTE/PE No Hx Hypertension Yes: ON LISINOPRIL Hx Chest Pain/Angina No Hx Heart Attack No Hx Cardiac Surgery/Stents/Etc. No Hx Heart Failure No Hx Pacemaker/AICD No Hx Irregular Heartbeat and/or Afib No Hx Anticoagulant Therapy Yes: Eliquis Query Text:(Coumadin, Aspirin, Plavix, Xarelto, etc.) Hx Pain in Legs when Walking/Leg Cramps No Respiratory Medical History Hx COPD No Hx Emphysema No Hx Smoking Yes Smoking Status Former smoker Tobacco Use Non-smoker Hx Smoking Cessation Counseling No Hx Smoking Exposure No Hx Tobacco Use in last 12 months No Hx of Pipe Smoking No Hx Sleep Apnea No CPAP No BIPAP No Do you snore loudly (louder than talking No or can be heard through closed doors)? Do you often feel tired/ fatigued/ No sleepy during daytime? Has anyone observed you stop breathing No during sleep? STOP Results Negative GI Medical History Hx Ulcer No Hx Hepatitis No Hx Cirrhosis No Hx GI Bleed No Hx Unplanned Weight Loss No Genitourinary Medical History Indwelling Catheter in Place on Arrival/ Yes Admission Hx Renal Disease Yes: CKD stage 3 Hx Dialysis No Musculoskeletal History Hx Arthritis Yes Hx Rheumatoid Arthritis No Endocrine Medical History Hx Diabetes Yes: ON INSULIN Hx Thyroid Disease No Hematologic Medical History Patient unable to answer at this time ( Yes ie. confused, unresponsive etc...) Psycho/Social Medical History Hx Depression Yes Hx Anxiety Yes Hx Behavior Disorder Yes: bipolar depression, personality disorder Hx Alcohol Use No Hx Substance Use No Other Medical History Hx Blood Disorders No Hx Anemia Yes Hx Cancer No Hx Drug Resistant Organism No Wound/Pressure Injury Present on Arrival Yes /Admission Query Text:If yes, chart assessment in Shift/Clinical Findings Central Line/PICC/VAD Present on Arrival No /Admission Methicillin Resistant Staphylococcus aureus Screening Active MRSA No Risk for Readmission Number of Risk Factors 6 At Risk for Readmission Patient is At Risk For Readmission Patient is eligible for Call Back Y Maternal Family History: Diabetes, Heart Disease, Hypertension Paternal Family History: - - epilepsy Sibling Family History: Diabetes - Social History Lives: Alone Smoking Status: Former smoker Tobacco Use: Non-smoker Alcohol: None Drugs: None Allergies/Adverse Reactions: Allergy/AdvReac Type Severity Reaction Status Date / Time adhesive Allergy Rash Verified 12/06/17 12:50 cefadroxil hydrate Allergy Rash Verified 12/06/17 12:50 [From Duricef] cephalexin monohydrate Allergy Rash Verified 12/06/17 12:50 [From Keflex] venom-honey bee Allergy Rash Verified 12/06/17 12:50 [bee venom (honey bee)] Review of Systems Constitutional:: Denies: Fever, Sweats, Weight loss, Appetite change, Chills Cardiovascular:: Reports: Shortness of breath. Denies: Chest pain, Palpitations , Orthopnea, PND Respiratory: Reports: Cough. Denies: Hemoptysis, Shortness of Breath, Wheezing Gastrointestinal:: Denies: Abdominal pain, Nausea, Vomiting, Diarrhea, Constipation, Melena, Hematochezia Genitourinary: Denies: Dysuria, Hematuria, Urinary frequency, Flank pain Musculoskeletal:: Denies: Back pain, Myalgia, Arthralgia Skin: Reports: Wounds. Denies: Rash, Skin Changes Neurological:: Denies: Headache, Dizziness, Visual changes, Tinnitus, Hearing loss Psychiatric: Denies: Anxiety, Depression, Homicidal Ideations, Suicidal Ideations Vital Signs Height 5 ft 7 in Weight: 368 lb 13.334 oz Weight in Pounds 368.8 lbs Pulse Ox 97 Temperature 98.6 F Pulse Rate 94 Respiratory Rate 16 Blood Pressure [BP] 110/73 Blood Pressure 109/71 Blood Pressure Position Semi-Fowlers - Physical Exam General: Alert, Oriented x3, No apparent distress, Non-Cooperative HEENT: Atraumatic, Normocephalic Oropharynx:: Negative for: Dry mucosa, Ulcerated lesions Neck:: Supple, Trachea midline. Negative for: JVD, bilateral Cardiac:: Regular rate, Regular rhythm, Normal S1, Normal S2. Negative for: Murmur Lungs: Clear to auscultation, Excusion symmetrical. Negative for: Rhonchi, Wheezes Abdomen:: Bowel sounds x 4, Soft, Non-tender, Non-distended, Obese. Negative for: Hepatosplenomegaly - difficult to discern d/t large body habitus Extremities:: - - LLE BKA. Negative for: Cyanosis, Edema Neurological: Neuro grossly intact Skin:: Lesions - Multiple lesions in various stages of healing scattered BUE Lower abdomen covered with multiple ABDs. Negative for: Rash, Petechiae, Ecchymosis Psychiatric:: Appropriate affect, Euthymic Lymphatics:: Negative for: Cervical lymphadenopathy, Supraclavicular lymphadenopathy, Axillary lymphadenopathy Breast:: No abnormalities noted Laboratory Data: Laboratory Tests 3 12/09/17 12/09/17 12/09/17 Range/Units 12:12 07:02 05:50 WBC (4.4-11.0) K/mm3 RBC (4.2-5.4) M/mm3 Hgb (12.0-15.0) g/dl Hct (37-47) % MCV (81-99) fL MCH (27.0-32.0) pg MCHC (32-36) g/gl RDW (11.6-14.6) % RDW Differential (35.1-43.9) fl Plt Count (150-450) K/mm3 MPV (6.2-12.0) fl Immature Gran % (Auto) (0.0-0.9) % Neut % (Auto) (47-70) % Lymph % (Auto) (19-41) % [place] % (Auto) (0-10) % Eos % (Auto) (0-5) % Baso % (Auto) (0-1) % Absolute Neuts (auto) (2.0-7.7) X10^3/uL Absolute Lymphs (auto) (0.83-4.51) X10^3/ul Total Counted Differential Comment Diff Path Review Sodium 133 L (136-145) mmol/L Potassium 4.2 (3.5-5.1) mmol/L Chloride 102 (98-107) mmol/L Carbon Dioxide 17.0 L (21.0-32.0) mmol/L Anion Gap 14 (5-15) BUN 73 H (7-18) mg/dL Creatinine 2.90 H (0.55-1.02) mg/dL Estim Creat Clear Calc 20.06 ml/min Est GFR (MDRD) Af Amer 21 L (>60) mL/min Est GFR (MDRD) Non-Af 18 L (>60) mL/min BUN/Creatinine Ratio 25.2 H (10-20) RATIO Glucose 136 H (74-106) mg/dL Calcium 8.4 L (8.5-10.1) mg/dL POC Glucose 132 H 135 H (70-110) mg/dL 3 12/09/17 12/08/17 12/08/17 Range/Units 05:50 23:31 16:38 WBC 39.1 H* (4.4-11.0) K/mm3 RBC 3.11 L (4.2-5.4) M/mm3 Hgb 8.0 L (12.0-15.0) g/dl Hct 24.7 L (37-47) % MCV 79.4 L (81-99) fL MCH 25.7 L (27.0-32.0) pg MCHC 32.4 (32-36) g/gl RDW 15.2 H (11.6-14.6) % RDW Differential 44.6 H (35.1-43.9) fl Plt Count 329 (150-450) K/mm3 MPV 9.2 (6.2-12.0) fl Immature Gran % (Auto) 1.000 H (0.0-0.9) % Neut % (Auto) 88.6 H (47-70) % Lymph % (Auto) 2.8 L (19-41) % [place] % (Auto) 6.0 (0-10) % Eos % (Auto) 1.5 (0-5) % Baso % (Auto) 0.1 (0-1) % Absolute Neuts (auto) 34.6 H (2.0-7.7) X10^3/uL Absolute Lymphs (auto) 1.11 (0.83-4.51) X10^3/ul Total Counted Not Reportable Differential Comment SCANNED Diff Path Review Reviewed Sodium (136-145) mmol/L Potassium (3.5-5.1) mmol/L Chloride (98-107) mmol/L Carbon Dioxide (21.0-32.0) mmol/L Anion Gap (5-15) BUN (7-18) mg/dL Creatinine (0.55-1.02) mg/dL Estim Creat Clear Calc ml/min Est GFR (MDRD) Af Amer (>60) mL/min Est GFR (MDRD) Non-Af (>60) mL/min BUN/Creatinine Ratio (10-20) RATIO Glucose (74-106) mg/dL Calcium (8.5-10.1) mg/dL POC Glucose 149 H 152 H (70-110) mg/dL 3 12/08/17 12/07/17 Range/Units 05:25 06:15 WBC (4.4-11.0) K/mm3 RBC (4.2-5.4) M/mm3 Hgb (12.0-15.0) g/dl Hct (37-47) % MCV (81-99) fL MCH (27.0-32.0) pg MCHC (32-36) g/gl RDW (11.6-14.6) % RDW Differential (35.1-43.9) fl Plt Count (150-450) K/mm3 MPV (6.2-12.0) fl Immature Gran % (Auto) (0.0-0.9) % Neut % (Auto) (47-70) % Lymph % (Auto) (19-41) % [place] % (Auto) (0-10) % Eos % (Auto) (0-5) % Baso % (Auto) (0-1) % Absolute Neuts (auto) (2.0-7.7) X10^3/uL Absolute Lymphs (auto) (0.83-4.51) X10^3/ul Total Counted Differential Comment Diff Path Review Reviewed Reviewed Sodium (136-145) mmol/L Potassium (3.5-5.1) mmol/L Chloride (98-107) mmol/L Carbon Dioxide (21.0-32.0) mmol/L Anion Gap (5-15) BUN (7-18) mg/dL Creatinine (0.55-1.02) mg/dL Estim Creat Clear Calc ml/min Est GFR (MDRD) Af Amer (>60) mL/min Est GFR (MDRD) Non-Af (>60) mL/min BUN/Creatinine Ratio (10-20) RATIO Glucose (74-106) mg/dL Calcium (8.5-10.1) mg/dL POC Glucose (70-110) mg/dL Diagnostic Data: 12/06/17 STUDY: X-RAY CHEST REASON FOR EXAM: Female, 62 years old. Mental status changes. TECHNIQUE: Single AP portable view of the chest. COMPARISON: Comparison is made with prior study dated December 05, 2015. FINDINGS: The lungs are clear and expanded. There is no demonstrated pleural abnormality. Cardiomegaly. Normal mediastinum and dayana. Normal visualized pulmonary arteries. Normal visualized aortic arch and descending thoracic aorta. Normal visualized thoracic spine. Normal visualized ribs, clavicles, and shoulders. There is no demonstrated abnormality of the visualized soft tissue structures of the upper abdomen. RAD/Chest 1 View (Portable) IMPRESSION: Cardiomegaly. Assessment and Plan 1. Leukocytosis, neutrophilic- as evidenced by WBC 39.1, ANC 34.6. Likely reactive as WBC were WNL until this acute episode of infection beginning November 2017. Would not plan further work up until active infection is resolved. Although will continue to follow CBC. 2. Anemia of chronic kidney disease- Cr 2.9. Hgb 8. Iron studies ordered. In the event she is deficient, she may benefit from dose of Venofer. 3. Chronic cough- CXR obtained 12/06/17 showed no mediastinal adenopathy or pleural abnormality otherwise. Sary Randolph, MSN, [employer], AOCNP Medications: Prescriptions This Visit Medication Instructions Recorded Calcium Carbonate/Vitamin D3 1 tab PO BID 12/06/17 [Calcium 600-Vit D3 200 Tablet] Epoetin Carlos Eduardo [Procrit] 10,000 unit SQ QWEEK PRN 12/06/17 Guaifenesin Dm [Robitussin Dm] 10 ml PO Q6H PRN PRN 12/06/17 Hydroxyzine Pamoate [Vistaril] 50 mg PO QHS 12/06/17 Insulin Glargine,Hum.rec.anlog 40 unit SQ QHS 12/06/17 [Basaglar Kwikpen U-100] Insulin Glargine,Hum.rec.anlog 55 unit SQ DAILY 12/06/17 [Basaglar Kwikpen U-100] L. Acidophilus/Pectin, [place] 1 cap PO DAILY 12/06/17 [Acidophilus Capsule] Magnesium Hydroxide [Milk Of 30 ml PO DAILY PRN PRN 12/06/17 Magnesia] Nystatin Powder [Mycostatin Powder] 1 applic TOPICAL BID 12/06/17 Paroxetine HCl [Paxil] 20 mg PO DAILY 12/06/17 Pravastatin Sodium [Pravachol] 10 mg PO QHS 12/06/17 Pyridoxine HCl [Vitamin B-6] 100 mg PO DAILY 12/06/17 Quetiapine Fumarate [Seroquel] 200 mg PO DAILY 12/06/17 Venlafaxine HCl [Venlafaxine HCl 225 mg PO DAILY 12/06/17 ER] Medications Added to Medication List This Visit Category Date Time Status 0.9% Normal Saline 1,000 ml Med 12/09/17 08:45 Active IV 100 mls/hr Primary Care Provider: Leroy Marie Referring Provider: - Problem List (1) Neutrophilic leukocytosis Status: Acute
[2017-12-09 15:50] VITALS: BP 110/70; PULSE 96; RESP 16; TEMP 36.7; O2SAT 98
[2017-12-09 16:01] LABS: Bedside Glucose 146 mg/dL (70-110)
[2017-12-09 16:47] LABS: Ferritin 1003 ng/mL (8-252); Iron 35 ug/dL (50-170); Iron Binding Capacity,Total 287 ug/dL (250-450); PERCENT IRON SATURATION 12.2 % (15.0-55.0)
[2017-12-09 21:18] VITALS: BP 112/58; PULSE 100; RESP 20; TEMP 37.1; O2SAT 97
[2017-12-09] MEDS: hydrOXYzine PAM 25 MG Capsule 50 MG PO (23:42)
[2017-12-09] MEDS: Pravastatin 20 MG Tablet 10 MG PO (23:42)
[2017-12-10 02:26] LABS: Bedside Glucose 148 mg/dL (70-110)
[2017-12-10 03:50] VITALS: BP 110/56; PULSE 98; RESP 18; TEMP 36.6; O2SAT 94
[2017-12-10 06:07] LABS: Hematocrit 24.8 % (37-47); Mean Corp Hgb Conc 32.3 g/gl (32-36); Mean Corpuscular Hgb 25.5 pg (27.0-32.0); Mean Platelet Vol. 8.8 fl (6.2-12.0); Platelet Count 363 K/mm3 (150-450); RBC Distribution Width CV 15.4 % (11.6-14.6); RBC Distribution Width SD 44.4 fl (35.1-43.9); Red Blood Count 3.14 M/mm3 (4.2-5.4)
[2017-12-10 06:12] LABS: ALB/GLOB Ratio 0.3 RATIO (0.9-2.4); AST(SGOT) 89 U/L (15-37); Alanine Aminotransfer ALT/SGPT 83 U/L (13-56); Albumin, Serum 1.5 g/dL (3.2-5.0); Alkaline Phosphatase 681 U/L (45-117); Anion Gap 13 (5-15); BUN 81 mg/dL (7-18); BUN/Creat Ratio 27.2 RATIO (10-20); Calcium,Total 8.3 mg/dL (8.5-10.1); Chloride 104 mmol/L (98-107); Creatinine, Serum 2.98 mg/dL (0.55-1.02); Differential Indicated MANUAL DIFF; EST Glomerular Filtration Rate 17 mL/min (>60); Est Glom Filt Rate - Afr Amer 21 mL/min (>60); Estimated Creatinine Clearance 19.52 ml/min; Glucose 104 mg/dL (74-106); POSITIVE COUNT YES; POSITIVE DIFFERENTIAL NO; POSITIVE MORPHOLOGY YES; Potassium 4.3 mmol/L (3.5-5.1); Protein, Total 6.5 g/dL (6.4-8.2); Sodium Level 135 mmol/L (136-145)
[2017-12-10 06:14] LABS: White Blood Count 38.9 K/mm3 (4.4-11.0)
[2017-12-10 06:52] VITALS: BP 119/67; PULSE 105; RESP 20; TEMP 37.2; O2SAT 95
[2017-12-10 07:10] LABS: Bedside Glucose 97 mg/dL (70-110)
[2017-12-10 07:25] LABS: Anisocytosis 1+; Eosinophil 1 % (0-5); Hypochromasia 1+; Lymphocyte 2 % (19-41); Microcytosis 1+; Monocyte 4 % (0-10); Neutrophil-Band 3 % (0-5); Neutrophil-Segmented 90 % (47-70); Platelet Estimate ADEQUATE (ADEQ); Platelet Morphology LARGE; Total Cells Counted 100 (MANUAL DIFF)
[2017-12-10 07:27] LABS: Absolute Lymphocyte Count 0.78 X10^3/ul (0.83-4.51); Absolute Neutrophil Count 36.2 X10^3/uL (2.0-7.7)
[2017-12-10] MEDS: 0.9% Normal Saline 1,000 ML 100 ML IV ×2 (08:15→19:20)
[2017-12-10] MEDS: Cilostazol 50 MG Tablet PO ×2 (08:15→17:45)
[2017-12-10] MEDS: Multivitamins,Therapeutic Tablet 1 TABLET PO (08:16)
[2017-12-10] MEDS: Ascorbic Acid 500 MG Tablet PO ×2 (08:17→17:46)
[2017-12-10] MEDS: Calcium Carb/Vitamin D 1 TABLET Tablet PO ×2 (08:17→17:45)
[2017-12-10] MEDS: Ferrous Sulfate 325 MG Tablet PO ×2 (08:19→17:45)
--- NOTE | 2017-12-10 08:50 | NURSING ---
wound photo: buttocks
[2017-12-10] MEDS: hydrOXYzine PAM 25 MG Capsule PO (10:35)
[2017-12-10] MEDS: Pyridoxine HCl 100 MG Tablet PO (10:35)
[2017-12-10] MEDS: QUEtiapine 100 MG Tablet 200 MG PO (10:35)
[2017-12-10] MEDS: Venlafaxine XR 75 MG Capsule 225 MG PO (10:35)
[2017-12-10] MEDS: APIXABAN 5 MG TABLET PO ×2 (10:35→22:37)
[2017-12-10] MEDS: Glucerna Shake 120 ML LIQUID PO ×2 (10:36→17:46)
[2017-12-10] MEDS: Nystatin Powder 15gm Bottle 1 APPLIC TOPICAL ×2 (10:37→22:37)
[2017-12-10 11:20] VITALS: O2SAT 95
[2017-12-10 12:00] VITALS: BP 114/67; PULSE 94; RESP 20; TEMP 36.8; O2SAT 95
[2017-12-10 12:25] LABS: Bedside Glucose 72 mg/dL (70-110)
--- NOTE | 2017-12-10 12:48 | ONC.PN.INPT ---
- Problem List (1) Neutrophilic leukocytosis Status: Acute (2) Anemia in chronic kidney disease Status: Acute Qualifiers: Chronic kidney disease stage: unspecified stage Qualified Code(s): N18.9 - Chronic kidney disease, unspecified; D63.1 - Anemia in chronic kidney disease Subjective Date of Service:: 12/10/17 Leukocytosis, anemia of chronic kidney disease Ms. Dianne Delgado is a 62-year-old white female with multiple comorbidities including morbid obesity,poorly controlled DM, bipolar disorder, and chronic skin disorder with some skin breakdown in her groin area as well as a chronic Shay catheter who was admitted 12/06/17 from an [facility] care facility, [place] for management of UTI (enterococcus faecalis), sepsis. Blood cultures were obtained and thus far remain negative. Consult requested as she exhibited marked leukocytosis. To her knowledge, she has not used lithium in the management of bipolar disorder. Smoked 2 packs/day from age [age]. Cannot recall if she has ever undergone routine screenings such as mammograms or colonoscopy. Family history positive for maternal aunt with a form of leukemia. Patient verbalizes she does not want to be examined nor interviewed. She c/o being tired and requests to be left alone. 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 2 diabetes mellitus with diabetic polyneuropathy (Chronic) Past Medical History - Most Recent Inpatient Visit Past Medical History Start: 12/06/17 15:38 Text: Status: Complete Freq: ONCE Protocol: Document 12/06/17 17:55 [facility] (Rec: 12/06/17 17:58 [facility] [id number]) BMI Required to complete PMH What is Patient's BMI 57.8 Past Medical History Unable History Recalled Yes Query Text:Pt Unable/Family Not Present Neurologic Medical History Hx Stroke/TIA No Hx Dementia/Alzheimer's No Hx Parkinson's Disease No Hx Seizures No Hx Multiple Sclerosis No Hx Migraines Yes: IN THE PAST Cardiac Medical History VTE Present on Admission No Hx of Deep Vein Thrombosis/VTE/PE No Hx Hypertension Yes: ON LISINOPRIL Hx Chest Pain/Angina No Hx Heart Attack No Hx Cardiac Surgery/Stents/Etc. No Hx Heart Failure No Hx Pacemaker/AICD No Hx Irregular Heartbeat and/or Afib No Hx Anticoagulant Therapy Yes: Eliquis Query Text:(Coumadin, Aspirin, Plavix, Xarelto, etc.) Hx Pain in Legs when Walking/Leg Cramps No Respiratory Medical History Hx COPD No Hx Emphysema No Hx Smoking Yes Smoking Status Former smoker Tobacco Use Non-smoker Hx Smoking Cessation Counseling No Hx Smoking Exposure No Hx Tobacco Use in last 12 months No Hx of Pipe Smoking No Hx Sleep Apnea No CPAP No BIPAP No Do you snore loudly (louder than talking No or can be heard through closed doors)? Do you often feel tired/ fatigued/ No sleepy during daytime? Has anyone observed you stop breathing No during sleep? STOP Results Negative GI Medical History Hx Ulcer No Hx Hepatitis No Hx Cirrhosis No Hx GI Bleed No Hx Unplanned Weight Loss No Genitourinary Medical History Indwelling Catheter in Place on Arrival/ Yes Admission Hx Renal Disease Yes: CKD stage 3 Hx Dialysis No Musculoskeletal History Hx Arthritis Yes Hx Rheumatoid Arthritis No Endocrine Medical History Hx Diabetes Yes: ON INSULIN Hx Thyroid Disease No Hematologic Medical History Patient unable to answer at this time ( Yes ie. confused, unresponsive etc...) Psycho/Social Medical History Hx Depression Yes Hx Anxiety Yes Hx Behavior Disorder Yes: bipolar depression, personality disorder Hx Alcohol Use No Hx Substance Use No Other Medical History Hx Blood Disorders No Hx Anemia Yes Hx Cancer No Hx Drug Resistant Organism No Wound/Pressure Injury Present on Arrival Yes /Admission Query Text:If yes, chart assessment in Shift/Clinical Findings Central Line/PICC/VAD Present on Arrival No /Admission Methicillin Resistant Staphylococcus aureus Screening Active MRSA No Risk for Readmission Number of Risk Factors 6 At Risk for Readmission Patient is At Risk For Readmission Patient is eligible for Call Back Y Maternal Family History: Diabetes, Heart Disease, Hypertension Paternal Family History: - - epilepsy Sibling Family History: Diabetes - Social History Lives: Alone Smoking Status: Former smoker Tobacco Use: Non-smoker Alcohol: None Drugs: None Review of Systems Constitutional:: Reports: - - Refused ROS Vital Signs Height 5 ft 7 in Weight: 368 lb 13.334 oz Weight in Pounds 368.8 lbs Pulse Ox 95 Temperature 99.0 F Pulse Rate 105 Respiratory Rate 20 Blood Pressure [BP] 110/73 Blood Pressure 119/67 Blood Pressure Position Semi-Fowlers - Physical Exam General: - - Refused exam Laboratory Data: Laboratory Tests 12/10/17 12/10/17 12/10/17 Range/Units 12:00 06:47 05:04 WBC 38.9 H* (4.4-11.0) K/mm3 RBC 3.14 L (4.2-5.4) M/mm3 Hgb 8.0 L (12.0-15.0) g/dl Hct 24.8 L (37-47) % MCV 79.0 L (81-99) fL MCH 25.5 L (27.0-32.0) pg MCHC 32.3 (32-36) g/gl RDW 15.4 H (11.6-14.6) % RDW Differential 44.4 H (35.1-43.9) fl Plt Count 363 (150-450) K/mm3 MPV 8.8 (6.2-12.0) fl Neut % (Auto) Not Reportable Absolute Neuts (auto) 36.2 H (2.0-7.7) X10^3/uL Absolute Lymphs (auto) 0.78 L (0.83-4.51) X10^3/ul Total Counted 100 (MANUAL DIFF) Neutrophils % (Manual) 90 H (47-70) % Band Neutrophils % 3 (0-5) % Lymphocytes % (Manual) 2 L (19-41) % Monocytes % (Manual) 4 (0-10) % Eosinophils % (Manual) 1 (0-5) % Diff Path Review May foll Platelet Estimate ADEQUATE (ADEQ) Plt Morphology Comment LARGE Hypochromasia 1+ Anisocytosis 1+ Microcytosis 1+ Sodium (136-145) mmol/L Potassium (3.5-5.1) mmol/L Chloride (98-107) mmol/L Carbon Dioxide (21.0-32.0) mmol/L Anion Gap (5-15) BUN (7-18) mg/dL Creatinine (0.55-1.02) mg/dL Estim Creat Clear Calc ml/min Est GFR (MDRD) Af Amer (>60) mL/min Est GFR (MDRD) Non-Af (>60) mL/min BUN/Creatinine Ratio (10-20) RATIO Glucose (74-106) mg/dL Calcium (8.5-10.1) mg/dL Iron (50-170) ug/dL TIBC (250-450) ug/dL Iron Saturation (15.0-55.0) % Ferritin (8-252) ng/mL Total Bilirubin (0.20-1.00) mg/dL AST (15-37) U/L ALT (13-56) U/L Alkaline Phosphatase (45-117) U/L Total Protein (6.4-8.2) g/dL Albumin (3.2-5.0) g/dL Globulin (2.2-4.2) g/dL Albumin/Globulin Ratio (0.9-2.4) RATIO POC Glucose 72 97 (70-110) mg/dL 12/10/17 12/09/17 12/09/17 Range/Units 05:04 23:35 15:42 WBC (4.4-11.0) K/mm3 RBC (4.2-5.4) M/mm3 Hgb (12.0-15.0) g/dl Hct (37-47) % MCV (81-99) fL MCH (27.0-32.0) pg MCHC (32-36) g/gl RDW (11.6-14.6) % RDW Differential (35.1-43.9) fl Plt Count (150-450) K/mm3 MPV (6.2-12.0) fl Neut % (Auto) Absolute Neuts (auto) (2.0-7.7) X10^3/uL Absolute Lymphs (auto) (0.83-4.51) X10^3/ul Total Counted (MANUAL DIFF) Neutrophils % (Manual) (47-70) % Band Neutrophils % (0-5) % Lymphocytes % (Manual) (19-41) % Monocytes % (Manual) (0-10) % Eosinophils % (Manual) (0-5) % Diff Path Review Platelet Estimate (ADEQ) Plt Morphology Comment Hypochromasia Anisocytosis Microcytosis Sodium 135 L (136-145) mmol/L Potassium 4.3 (3.5-5.1) mmol/L Chloride 104 (98-107) mmol/L Carbon Dioxide 18.0 L (21.0-32.0) mmol/L Anion Gap 13 (5-15) BUN 81 H (7-18) mg/dL Creatinine 2.98 H (0.55-1.02) mg/dL Estim Creat Clear Calc 19.52 ml/min Est GFR (MDRD) Af Amer 21 L (>60) mL/min Est GFR (MDRD) Non-Af 17 L (>60) mL/min BUN/Creatinine Ratio 27.2 H (10-20) RATIO Glucose 104 (74-106) mg/dL Calcium 8.3 L (8.5-10.1) mg/dL Iron (50-170) ug/dL TIBC (250-450) ug/dL Iron Saturation (15.0-55.0) % Ferritin (8-252) ng/mL Total Bilirubin 0.40 (0.20-1.00) mg/dL AST 89 H (15-37) U/L ALT 83 H (13-56) U/L Alkaline Phosphatase 681 H (45-117) U/L Total Protein 6.5 (6.4-8.2) g/dL Albumin 1.5 L (3.2-5.0) g/dL Globulin 5.0 H (2.2-4.2) g/dL Albumin/Globulin Ratio 0.3 L (0.9-2.4) RATIO POC Glucose 148 H 146 H (70-110) mg/dL 12/09/17 12/09/17 12/08/17 Range/Units 05:50 05:50 05:25 WBC (4.4-11.0) K/mm3 RBC (4.2-5.4) M/mm3 Hgb (12.0-15.0) g/dl Hct (37-47) % MCV (81-99) fL MCH (27.0-32.0) pg MCHC (32-36) g/gl RDW (11.6-14.6) % RDW Differential (35.1-43.9) fl Plt Count (150-450) K/mm3 MPV (6.2-12.0) fl Neut % (Auto) Absolute Neuts (auto) (2.0-7.7) X10^3/uL Absolute Lymphs (auto) (0.83-4.51) X10^3/ul Total Counted (MANUAL DIFF) Neutrophils % (Manual) (47-70) % Band Neutrophils % (0-5) % Lymphocytes % (Manual) (19-41) % Monocytes % (Manual) (0-10) % Eosinophils % (Manual) (0-5) % Diff Path Review Reviewed Reviewed Platelet Estimate (ADEQ) Plt Morphology Comment Hypochromasia Anisocytosis Microcytosis Sodium (136-145) mmol/L Potassium (3.5-5.1) mmol/L Chloride (98-107) mmol/L Carbon Dioxide (21.0-32.0) mmol/L Anion Gap (5-15) BUN (7-18) mg/dL Creatinine (0.55-1.02) mg/dL Estim Creat Clear Calc ml/min Est GFR (MDRD) Af Amer (>60) mL/min Est GFR (MDRD) Non-Af (>60) mL/min BUN/Creatinine Ratio (10-20) RATIO Glucose (74-106) mg/dL Calcium (8.5-10.1) mg/dL Iron 35 L (50-170) ug/dL TIBC 287 (250-450) ug/dL Iron Saturation 12.2 L (15.0-55.0) % Ferritin 1003 H (8-252) ng/mL Total Bilirubin (0.20-1.00) mg/dL AST (15-37) U/L ALT (13-56) U/L Alkaline Phosphatase (45-117) U/L Total Protein (6.4-8.2) g/dL Albumin (3.2-5.0) g/dL Globulin (2.2-4.2) g/dL Albumin/Globulin Ratio (0.9-2.4) RATIO POC Glucose (70-110) mg/dL 12/07/17 Range/Units 06:15 WBC (4.4-11.0) K/mm3 RBC (4.2-5.4) M/mm3 Hgb (12.0-15.0) g/dl Hct (37-47) % MCV (81-99) fL MCH (27.0-32.0) pg MCHC (32-36) g/gl RDW (11.6-14.6) % RDW Differential (35.1-43.9) fl Plt Count (150-450) K/mm3 MPV (6.2-12.0) fl Neut % (Auto) Absolute Neuts (auto) (2.0-7.7) X10^3/uL Absolute Lymphs (auto) (0.83-4.51) X10^3/ul Total Counted (MANUAL DIFF) Neutrophils % (Manual) (47-70) % Band Neutrophils % (0-5) % Lymphocytes % (Manual) (19-41) % Monocytes % (Manual) (0-10) % Eosinophils % (Manual) (0-5) % Diff Path Review Reviewed Platelet Estimate (ADEQ) Plt Morphology Comment Hypochromasia Anisocytosis Microcytosis Sodium (136-145) mmol/L Potassium (3.5-5.1) mmol/L Chloride (98-107) mmol/L Carbon Dioxide (21.0-32.0) mmol/L Anion Gap (5-15) BUN (7-18) mg/dL Creatinine (0.55-1.02) mg/dL Estim Creat Clear Calc ml/min Est GFR (MDRD) Af Amer (>60) mL/min Est GFR (MDRD) Non-Af (>60) mL/min BUN/Creatinine Ratio (10-20) RATIO Glucose (74-106) mg/dL Calcium (8.5-10.1) mg/dL Iron (50-170) ug/dL TIBC (250-450) ug/dL Iron Saturation (15.0-55.0) % Ferritin (8-252) ng/mL Total Bilirubin (0.20-1.00) mg/dL AST (15-37) U/L ALT (13-56) U/L Alkaline Phosphatase (45-117) U/L Total Protein (6.4-8.2) g/dL Albumin (3.2-5.0) g/dL Globulin (2.2-4.2) g/dL Albumin/Globulin Ratio (0.9-2.4) RATIO POC Glucose (70-110) mg/dL Diagnostic Data: Diagnostic Data Chest X-Ray 12/09/17 11:05 IMPRESSION: There has been no change since the prior study. Electronically Signed: Pb Vazquez MD at 16:47 EDT , Service support , Assessment and Plan 1. Leukocytosis, neutrophilic- as evidenced by WBC 38.9, today. Likely reactive as WBC were WNL until this acute episode of infection beginning November 2017. Would not plan further work up until active infection is resolved. 2. Anemia of chronic kidney disease- Cr 2.98. Hgb 8. Iron studies show she is deficient as evidenced by saturation of 12.2%. Ferritin >1000 although this too is likely reactive. Patient would potentially benefit from IV Venofer. However, patient refused stating I don't want any more tubes. I explained to her Venofer could obviate the need for PRBC transfusion, improve her current state of fatigue, would be administered via the IV she already has in place and would not involve more tubes to which she responded How many times do I have to tell you I don't want it? 3. Chronic cough- CXR obtained 12/06/17 showed no mediastinal adenopathy or pleural abnormality otherwise. Plan to sign off case as patient is disinterested in interventions proposed by hematology at this time. Thank you for including [facility] in her care. If leukocytosis worsens outside the context of present infection or there are new hematologic issues to address, we will be happy to attend to them in the future. Sary Randolph, FREDDIE, CLEARANCE COORDINATOR-C, AOCNP Medications: Prescriptions This Visit Medication Instructions Recorded Calcium Carbonate/Vitamin D3 1 tab PO BID 12/06/17 [Calcium 600-Vit D3 200 Tablet] Epoetin Carlos Eduardo [Procrit] 10,000 unit SQ QWEEK PRN 12/06/17 Guaifenesin Dm [Robitussin Dm] 10 ml PO Q6H PRN PRN 12/06/17 Hydroxyzine Pamoate [Vistaril] 50 mg PO QHS 12/06/17 Insulin Glargine,Hum.rec.anlog 40 unit SQ QHS 12/06/17 [Basaglar Kwikpen U-100] Insulin Glargine,Hum.rec.anlog 55 unit SQ DAILY 12/06/17 [Basaglar Kwikpen U-100] L. Acidophilus/Pectin, Sandy 1 cap PO DAILY 12/06/17 [Acidophilus Capsule] Magnesium Hydroxide [Milk Of 30 ml PO DAILY PRN PRN 12/06/17 Magnesia] Nystatin Powder [Mycostatin Powder] 1 applic TOPICAL BID 12/06/17 Paroxetine HCl [Paxil] 20 mg PO DAILY 12/06/17 Pravastatin Sodium [Pravachol] 10 mg PO QHS 12/06/17 Pyridoxine HCl [Vitamin B-6] 100 mg PO DAILY 12/06/17 Quetiapine Fumarate [Seroquel] 200 mg PO DAILY 12/06/17 Venlafaxine HCl [Venlafaxine HCl 225 mg PO DAILY 12/06/17 ER] Primary Care Provider: Leroy Marie Referring Provider:
--- NOTE | 2017-12-10 12:52 | PN_ITS ---
- Problem List (1) Neutrophilic leukocytosis Status: Acute (2) Anemia in chronic kidney disease Status: Acute Qualifiers: Chronic kidney disease stage: unspecified stage Qualified Code(s): N18.9 - Chronic kidney disease, unspecified; D63.1 - Anemia in chronic kidney disease Subjective Date of Service:: 12/10/17 Leukocytosis, anemia of chronic kidney disease Ms. Dianne Delgado is a 62-year-old white female with multiple comorbidities including morbid obesity,poorly controlled DM, bipolar disorder, and chronic skin disorder with some skin breakdown in her groin area as well as a chronic Shay catheter who was admitted 12/06/17 from an [facility] care facility, [place] for management of UTI (enterococcus faecalis), sepsis. Blood cultures were obtained and thus far remain negative. Consult requested as she exhibited marked leukocytosis. To her knowledge, she has not used lithium in the management of bipolar disorder. Smoked 2 packs/day from age [age]. Cannot recall if she has ever undergone routine screenings such as mammograms or colonoscopy. Family history positive for maternal aunt with a form of leukemia. Patient verbalizes she does not want to be examined nor interviewed. She c/o being tired and requests to be left alone. 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 2 diabetes mellitus with diabetic polyneuropathy (Chronic) Past Medical History - Most Recent Inpatient Visit Past Medical History Start: 12/06/17 15: 38 Text: Status: Complete Freq: ONCE Protocol: Document 12/06/17 17:55 [facility] (Rec: 12/06/17 17:58 [facility] [id number]) BMI Required to complete PMH What is Patient's BMI 57.8 Past Medical History Unable History Recalled Yes Query Text:Pt Unable/Family Not Present Neurologic Medical History Hx Stroke/TIA No Hx Dementia/Alzheimer's No Hx Parkinson's Disease No Hx Seizures No Hx Multiple Sclerosis No Hx Migraines Yes: IN THE PAST Cardiac Medical History VTE Present on Admission No Hx of Deep Vein Thrombosis/VTE/PE No Hx Hypertension Yes: ON LISINOPRIL Hx Chest Pain/Angina No Hx Heart Attack No Hx Cardiac Surgery/Stents/Etc. No Hx Heart Failure No Hx Pacemaker/AICD No Hx Irregular Heartbeat and/or Afib No Hx Anticoagulant Therapy Yes: Eliquis Query Text:(Coumadin, Aspirin, Plavix, Xarelto, etc.) Hx Pain in Legs when Walking/Leg Cramps No Respiratory Medical History Hx COPD No Hx Emphysema No Hx Smoking Yes Smoking Status Former smoker Tobacco Use Non-smoker Hx Smoking Cessation Counseling No Hx Smoking Exposure No Hx Tobacco Use in last 12 months No Hx of Pipe Smoking No Hx Sleep Apnea No CPAP No BIPAP No Do you snore loudly (louder than talking No or can be heard through closed doors)? Do you often feel tired/ fatigued/ No sleepy during daytime? Has anyone observed you stop breathing No during sleep? STOP Results Negative GI Medical History Hx Ulcer No Hx Hepatitis No Hx Cirrhosis No Hx GI Bleed No Hx Unplanned Weight Loss No Genitourinary Medical History Indwelling Catheter in Place on Arrival/ Yes Admission Hx Renal Disease Yes: CKD stage 3 Hx Dialysis No Musculoskeletal History Hx Arthritis Yes Hx Rheumatoid Arthritis No Endocrine Medical History Hx Diabetes Yes: ON INSULIN Hx Thyroid Disease No Hematologic Medical History Patient unable to answer at this time ( Yes ie. confused, unresponsive etc...) Psycho/Social Medical History Hx Depression Yes Hx Anxiety Yes Hx Behavior Disorder Yes: bipolar depression, personality disorder Hx Alcohol Use No Hx Substance Use No Other Medical History Hx Blood Disorders No Hx Anemia Yes Hx Cancer No Hx Drug Resistant Organism No Wound/Pressure Injury Present on Arrival Yes /Admission Query Text:If yes, chart assessment in Shift/Clinical Findings Central Line/PICC/VAD Present on Arrival No /Admission Methicillin Resistant Staphylococcus aureus Screening Active MRSA No Risk for Readmission Number of Risk Factors 6 At Risk for Readmission Patient is At Risk For Readmission Patient is eligible for Call Back Y Maternal Family History: Diabetes, Heart Disease, Hypertension Paternal Family History: - - epilepsy Sibling Family History: Diabetes - Social History Lives: Alone Smoking Status: Former smoker Tobacco Use: Non-smoker Alcohol: None Drugs: None Review of Systems Constitutional:: Reports: - - Refused ROS Vital Signs Height 5 ft 7 in Weight: 368 lb 13.334 oz Weight in Pounds 368.8 lbs Pulse Ox 95 Temperature 99.0 F Pulse Rate 105 Respiratory Rate 20 Blood Pressure [BP] 110/73 Blood Pressure 119/67 Blood Pressure Position Semi-Fowlers - Physical Exam General: - - Refused exam Laboratory Data: Laboratory Tests 3 12/10/17 12/10/17 12/10/17 Range/Units 12:00 06:47 05:04 WBC 38.9 H* (4.4-11.0) K/mm3 RBC 3.14 L (4.2-5.4) M/mm3 Hgb 8.0 L (12.0-15.0) g/dl Hct 24.8 L (37-47) % MCV 79.0 L (81-99) fL MCH 25.5 L (27.0-32.0) pg MCHC 32.3 (32-36) g/gl RDW 15.4 H (11.6-14.6) % RDW Differential 44.4 H (35.1-43.9) fl Plt Count 363 (150-450) K/mm3 MPV 8.8 (6.2-12.0) fl Neut % (Auto) Not Reportable Absolute Neuts (auto) 36.2 H (2.0-7.7) X10^3/uL Absolute Lymphs (auto) 0.78 L (0.83-4.51) X10^3/ul Total Counted 100 (MANUAL DIFF) Neutrophils % (Manual) 90 H (47-70) % Band Neutrophils % 3 (0-5) % Lymphocytes % (Manual) 2 L (19-41) % Monocytes % (Manual) 4 (0-10) % Eosinophils % (Manual) 1 (0-5) % Diff Path Review May foll Platelet Estimate ADEQUATE (ADEQ) Plt Morphology Comment LARGE Hypochromasia 1+ Anisocytosis 1+ Microcytosis 1+ Sodium (136-145) mmol/L Potassium (3.5-5.1) mmol/L Chloride (98-107) mmol/L Carbon Dioxide (21.0-32.0) mmol/L Anion Gap (5-15) BUN (7-18) mg/dL Creatinine (0.55-1.02) mg/dL Estim Creat Clear Calc ml/min Est GFR (MDRD) Af Amer (>60) mL/min Est GFR (MDRD) Non-Af (>60) mL/min BUN/Creatinine Ratio (10-20) RATIO Glucose (74-106) mg/dL Calcium (8.5-10.1) mg/dL Iron (50-170) ug/dL TIBC (250-450) ug/dL Iron Saturation (15.0-55.0) % Ferritin (8-252) ng/mL Total Bilirubin (0.20-1.00) mg/dL AST (15-37) U/L ALT (13-56) U/L Alkaline Phosphatase (45-117) U/L Total Protein (6.4-8.2) g/dL Albumin (3.2-5.0) g/dL Globulin (2.2-4.2) g/dL Albumin/Globulin Ratio (0.9-2.4) RATIO POC Glucose 72 97 (70-110) mg/dL 3 12/10/17 12/09/17 12/09/17 Range/Units 05:04 23:35 15:42 WBC (4.4-11.0) K/mm3 RBC (4.2-5.4) M/mm3 Hgb (12.0-15.0) g/dl Hct (37-47) % MCV (81-99) fL MCH (27.0-32.0) pg MCHC (32-36) g/gl RDW (11.6-14.6) % RDW Differential (35.1-43.9) fl Plt Count (150-450) K/mm3 MPV (6.2-12.0) fl Neut % (Auto) Absolute Neuts (auto) (2.0-7.7) X10^3/uL Absolute Lymphs (auto) (0.83-4.51) X10^3/ul Total Counted (MANUAL DIFF) Neutrophils % (Manual) (47-70) % Band Neutrophils % (0-5) % Lymphocytes % (Manual) (19-41) % Monocytes % (Manual) (0-10) % Eosinophils % (Manual) (0-5) % Diff Path Review Platelet Estimate (ADEQ) Plt Morphology Comment Hypochromasia Anisocytosis Microcytosis Sodium 135 L (136-145) mmol/L Potassium 4.3 (3.5-5.1) mmol/L Chloride 104 (98-107) mmol/L Carbon Dioxide 18.0 L (21.0-32.0) mmol/L Anion Gap 13 (5-15) BUN 81 H (7-18) mg/dL Creatinine 2.98 H (0.55-1.02) mg/dL Estim Creat Clear Calc 19.52 ml/min Est GFR (MDRD) Af Amer 21 L (>60) mL/min Est GFR (MDRD) Non-Af 17 L (>60) mL/min BUN/Creatinine Ratio 27.2 H (10-20) RATIO Glucose 104 (74-106) mg/dL Calcium 8.3 L (8.5-10.1) mg/dL Iron (50-170) ug/dL TIBC (250-450) ug/dL Iron Saturation (15.0-55.0) % Ferritin (8-252) ng/mL Total Bilirubin 0.40 (0.20-1.00) mg/dL AST 89 H (15-37) U/L ALT 83 H (13-56) U/L Alkaline Phosphatase 681 H (45-117) U/L Total Protein 6.5 (6.4-8.2) g/dL Albumin 1.5 L (3.2-5.0) g/dL Globulin 5.0 H (2.2-4.2) g/dL Albumin/Globulin Ratio 0.3 L (0.9-2.4) RATIO POC Glucose 148 H 146 H (70-110) mg/dL 3 12/09/17 12/09/17 12/08/17 Range/Units 05:50 05:50 05:25 WBC (4.4-11.0) K/mm3 RBC (4.2-5.4) M/mm3 Hgb (12.0-15.0) g/dl Hct (37-47) % MCV (81-99) fL MCH (27.0-32.0) pg MCHC (32-36) g/gl RDW (11.6-14.6) % RDW Differential (35.1-43.9) fl Plt Count (150-450) K/mm3 MPV (6.2-12.0) fl Neut % (Auto) Absolute Neuts (auto) (2.0-7.7) X10^3/uL Absolute Lymphs (auto) (0.83-4.51) X10^3/ul Total Counted (MANUAL DIFF) Neutrophils % (Manual) (47-70) % Band Neutrophils % (0-5) % Lymphocytes % (Manual) (19-41) % Monocytes % (Manual) (0-10) % Eosinophils % (Manual) (0-5) % Diff Path Review Reviewed Reviewed Platelet Estimate (ADEQ) Plt Morphology Comment Hypochromasia Anisocytosis Microcytosis Sodium (136-145) mmol/L Potassium (3.5-5.1) mmol/L Chloride (98-107) mmol/L Carbon Dioxide (21.0-32.0) mmol/L Anion Gap (5-15) BUN (7-18) mg/dL Creatinine (0.55-1.02) mg/dL Estim Creat Clear Calc ml/min Est GFR (MDRD) Af Amer (>60) mL/min Est GFR (MDRD) Non-Af (>60) mL/min BUN/Creatinine Ratio (10-20) RATIO Glucose (74-106) mg/dL Calcium (8.5-10.1) mg/dL Iron 35 L (50-170) ug/dL TIBC 287 (250-450) ug/dL Iron Saturation 12.2 L (15.0-55.0) % Ferritin 1003 H (8-252) ng/mL Total Bilirubin (0.20-1.00) mg/dL AST (15-37) U/L ALT (13-56) U/L Alkaline Phosphatase (45-117) U/L Total Protein (6.4-8.2) g/dL Albumin (3.2-5.0) g/dL Globulin (2.2-4.2) g/dL Albumin/Globulin Ratio (0.9-2.4) RATIO POC Glucose (70-110) mg/dL 3 12/07/17 Range/Units 06:15 WBC (4.4-11.0) K/mm3 RBC (4.2-5.4) M/mm3 Hgb (12.0-15.0) g/dl Hct (37-47) % MCV (81-99) fL MCH (27.0-32.0) pg MCHC (32-36) g/gl RDW (11.6-14.6) % RDW Differential (35.1-43.9) fl Plt Count (150-450) K/mm3 MPV (6.2-12.0) fl Neut % (Auto) Absolute Neuts (auto) (2.0-7.7) X10^3/uL Absolute Lymphs (auto) (0.83-4.51) X10^3/ul Total Counted (MANUAL DIFF) Neutrophils % (Manual) (47-70) % Band Neutrophils % (0-5) % Lymphocytes % (Manual) (19-41) % Monocytes % (Manual) (0-10) % Eosinophils % (Manual) (0-5) % Diff Path Review Reviewed Platelet Estimate (ADEQ) Plt Morphology Comment Hypochromasia Anisocytosis Microcytosis Sodium (136-145) mmol/L Potassium (3.5-5.1) mmol/L Chloride (98-107) mmol/L Carbon Dioxide (21.0-32.0) mmol/L Anion Gap (5-15) BUN (7-18) mg/dL Creatinine (0.55-1.02) mg/dL Estim Creat Clear Calc ml/min Est GFR (MDRD) Af Amer (>60) mL/min Est GFR (MDRD) Non-Af (>60) mL/min BUN/Creatinine Ratio (10-20) RATIO Glucose (74-106) mg/dL Calcium (8.5-10.1) mg/dL Iron (50-170) ug/dL TIBC (250-450) ug/dL Iron Saturation (15.0-55.0) % Ferritin (8-252) ng/mL Total Bilirubin (0.20-1.00) mg/dL AST (15-37) U/L ALT (13-56) U/L Alkaline Phosphatase (45-117) U/L Total Protein (6.4-8.2) g/dL Albumin (3.2-5.0) g/dL Globulin (2.2-4.2) g/dL Albumin/Globulin Ratio (0.9-2.4) RATIO POC Glucose (70-110) mg/dL Diagnostic Data: Diagnostic Data Chest X-Ray 12/09/17 11:05 IMPRESSION: There has been no change since the prior study. Electronically Signed: Pb Vazquez MD at 16:47 EDT , Service support , Assessment and Plan 1. Leukocytosis, neutrophilic- as evidenced by WBC 38.9, today. Likely reactive as WBC were WNL until this acute episode of infection beginning November 2017. Would not plan further work up until active infection is resolved. 2. Anemia of chronic kidney disease- Cr 2.98. Hgb 8. Iron studies show she is deficient as evidenced by saturation of 12.2%. Ferritin >1000 although this too is likely reactive. Patient would potentially benefit from IV Venofer. However, patient refused stating I don't want any more tubes. I explained to her Venofer could obviate the need for PRBC transfusion, improve her current state of fatigue, would be administered via the IV she already has in place and would not involve more tubes to which she responded How many times do I have to tell you I don't want it? 3. Chronic cough- CXR obtained 12/06/17 showed no mediastinal adenopathy or pleural abnormality otherwise. Plan to sign off case as patient is disinterested in interventions proposed by hematology at this time. Thank you for including [facility] in her care. If leukocytosis worsens outside the context of present infection or there are new hematologic issues to address, we will be happy to attend to them in the future. Sary Randolph, FREDDIE, WELDING INSTRUCTOR-C, AOCNP Medications: Prescriptions This Visit Medication Instructions Recorded Calcium Carbonate/Vitamin D3 1 tab PO BID 12/06/17 [Calcium 600-Vit D3 200 Tablet] Epoetin Carlos Eduardo [Procrit] 10,000 unit SQ QWEEK PRN 12/06/17 Guaifenesin Dm [Robitussin Dm] 10 ml PO Q6H PRN PRN 12/06/17 Hydroxyzine Pamoate [Vistaril] 50 mg PO QHS 12/06/17 Insulin Glargine,Hum.rec.anlog 40 unit SQ QHS 12/06/17 [Basaglar Kwikpen U-100] Insulin Glargine,Hum.rec.anlog 55 unit SQ DAILY 12/06/17 [Basaglar Kwikpen U-100] L. Acidophilus/Pectin, [place] 1 cap PO DAILY 12/06/17 [Acidophilus Capsule] Magnesium Hydroxide [Milk Of 30 ml PO DAILY PRN PRN 12/06/17 Magnesia] Nystatin Powder [Mycostatin Powder] 1 applic TOPICAL BID 12/06/17 Paroxetine HCl [Paxil] 20 mg PO DAILY 12/06/17 Pravastatin Sodium [Pravachol] 10 mg PO QHS 12/06/17 Pyridoxine HCl [Vitamin B-6] 100 mg PO DAILY 12/06/17 Quetiapine Fumarate [Seroquel] 200 mg PO DAILY 12/06/17 Venlafaxine HCl [Venlafaxine HCl 225 mg PO DAILY 12/06/17 ER] Primary Care Provider: Leroy Marie Referring Provider:
--- NOTE | 2017-12-10 13:19 | US_ITS ---
STUDY: ABDOMINAL ULTRASOUND - RIGHT UPPER QUADRANT REASON FOR VISIT: Female, 62 years old. Elevated LFTs TECHNIQUE: Ultrasound evaluation of the right upper quadrant was performed with real-time and static weiss-scale imaging. TECHNICAL QUALITY: Adequate. COMPARISON: None. FINDINGS: Liver: The liver measures 19.2 cm. There is fatty echogenicity of the liver. The bile ducts are within normal limits. There is hepatic color flow. The direction of portal flow is hepatopetal. There is no demonstrated mass lesion. Gallbladder: Normal distended gallbladder. The gallbladder wall measures 3 mm. There is a negative sonographic Frazier's sign. There is trace pericholecystic fluid. There are no gallstones. Gallbladder sludge. Common Bile Duct (C.B.D.): The common bile duct measures 7 mm. Pancreas: Negative visualization of the pancreas. Right Kidney: Normal size of the right kidney. The right kidney measures 11.7 x 6.3 x 6.8 cm. Normal renal cortex. The right cortex measures 1.1 cm. There is no demonstrated renal mass or cyst. There is no right hydronephrosis. US/Abdomen Limited IMPRESSION: Fatty enlarged liver. Gallbladder sludge and trace pericholecystic fluid. Borderline common bile duct. Electronically Signed: Chad Bolton DO at 21:23 EDT Tel [phone], Service support ,
--- NOTE | 2017-12-10 13:23 | PCM.PN.ID ---
Patient Problems: Active and Suspected Problems UTI (urinary tract infection) (Acute) Sepsis (Acute) Neutrophilic leukocytosis (Acute) Subjective: Patient states of nausea when taken some of her medications. No abdominal pain. States of loose stools but no diarrhea. Cardiopulmonary status stable. No fevers. Currently on Unasyn and oral vancomycin. Objective: Alert does not appear toxic lungs are clear heart exam S1-S2 abdomen is obese but soft no focal tenderness. Shay catheter is in place - Physical Exam Vital Signs Temp Pulse Resp BP Pulse Ox 99.0 F 105 H 20 H 119/67 95 12/10/17 06:52 12/10/17 06:52 12/10/17 06:52 12/10/17 06:52 12/10/17 11:20 Oxygen Flow Rate (L/min) 2 Oxygen Delivery Method Nasal Cannula Weight: 167.3 kg Body Mass Index (BMI) 57.7 Intake and Output for Last 24 Hours 12/08/17 12/09/17 12/10/17 23:59 23:59 23:59 Intake Total 1099 / 1099 1456 / 1456 700 / 700 Output Total 525 / 525 540 / 540 125 / 125 Balance 574 / 574 916 / 916 575 / 575 Laboratory Tests Past 24 Hrs 12/07/17 12/08/17 12/09/17 06:15 05:25 05:50 WBC RBC Hgb Hct MCV MCH MCHC RDW RDW Differential Plt Count MPV Neut % (Auto) Absolute Neuts (auto) Absolute Lymphs (auto) Total Counted Neutrophils % (Manual) Band Neutrophils % Lymphocytes % (Manual) Monocytes % (Manual) Eosinophils % (Manual) Diff Path Review Reviewed Reviewed Reviewed Platelet Estimate Plt Morphology Comment Hypochromasia Anisocytosis Microcytosis Sodium Potassium Chloride Carbon Dioxide Anion Gap BUN Creatinine Estim Creat Clear Calc Est GFR (MDRD) Af Amer Est GFR (MDRD) Non-Af BUN/Creatinine Ratio Glucose Calcium Iron TIBC Iron Saturation Ferritin Total Bilirubin AST ALT Alkaline Phosphatase Total Protein Albumin Globulin Albumin/Globulin Ratio 12/09/17 12/10/17 12/10/17 05:50 05:04 05:04 WBC 38.9 H* RBC 3.14 L Hgb 8.0 L Hct 24.8 L MCV 79.0 L MCH 25.5 L MCHC 32.3 RDW 15.4 H RDW Differential 44.4 H Plt Count 363 MPV 8.8 Neut % (Auto) Not Reportable Absolute Neuts (auto) 36.2 H Absolute Lymphs (auto) 0.78 L Total Counted 100 Neutrophils % (Manual) 90 H Band Neutrophils % 3 Lymphocytes % (Manual) 2 L Monocytes % (Manual) 4 Eosinophils % (Manual) 1 Diff Path Review May foll Platelet Estimate ADEQUATE Plt Morphology Comment LARGE Hypochromasia 1+ Anisocytosis 1+ Microcytosis 1+ Sodium 135 L Potassium 4.3 Chloride 104 Carbon Dioxide 18.0 L Anion Gap 13 BUN 81 H Creatinine 2.98 H Estim Creat Clear Calc 19.52 Est GFR (MDRD) Af Amer 21 L Est GFR (MDRD) Non-Af 17 L BUN/Creatinine Ratio 27.2 H Glucose 104 Calcium 8.3 L Iron 35 L TIBC 287 Iron Saturation 12.2 L Ferritin 1003 H Total Bilirubin 0.40 AST 89 H ALT 83 H Alkaline Phosphatase 681 H Total Protein 6.5 Albumin 1.5 L Globulin 5.0 H Albumin/Globulin Ratio 0.3 L POC Glucose 12/10/17 12/10/17 12/09/17 12:00 06:47 23:35 POC Glucose 72 97 148 H 12/09/17 15:42 POC Glucose 146 H Medical Necessity - Tobacco Use Smoking Status: Former smoker Tobacco Use: Non-smoker Route of nutrition/ use of supplements: [] Nutritional Intake: [] IV Site: [] Shay Catheter: [] - Assessment/Plan Marked leukocytosis with renal insufficiency. Etiology of her marked leukocytosis unclear. Her blood cultures remain negative. Of concern is her elevated liver function tests and alkaline phosphatase. I will order right upper quadrant ultrasound and also repeat blood work for the morning.
[2017-12-10 15:16] LABS: Pathologist Review Reviewed
--- NOTE | 2017-12-10 15:16 | PN_ITS ---
<Adolfo Duong - Last Filed: 12/10/17 15:12> Patient Problems: Active and Suspected Problems UTI (urinary tract infection) (Acute) Sepsis (Acute) Neutrophilic leukocytosis (Acute) Subjective: Pts only complaint today is her chronic wounds hurting, but states overall these have improved since admission. No fever/chills. No diarrhea. No WILLIS, dizziness. No discomfort with cath. - Physical Exam General: Alert, Oriented x3, Cooperative HEENT: Atraumatic, PERRLA, EOMI, Normocephalic Neck: Supple, No JVD, Negative Carotid Bruits Lungs: Clear to auscultation, Normal air movement Cardiovascular: Regular rate, No murmurs Abdomen: Bowel Sounds Present, Soft, Non Tender, Obese Extremities: No edema, Capillary Refill Less than 3 Seconds Skin: No rashes, No breakdown Musculoskeletal: No Tenderness to Palpation of Joints or Extremities Neurological: Cranial nerves II-XII grossly intact Psych/Mental Status: Normal Affect, Appropriate, Alert and oriented to time, place, person, mood and affect Vital Signs Temp Pulse Resp BP Pulse Ox 98.2 F 94 20 H 114/67 95 12/10/17 12:00 12/10/17 12:00 12/10/17 12:00 12/10/17 12:00 12/10/17 12:00 Oxygen Flow Rate (L/min) 2 Oxygen Delivery Method Nasal Cannula Weight: 368 lb 13.334 oz Body Mass Index (BMI) 57.7 Intake and Output for Last 24 Hours 12/08/17 12/09/17 12/10/17 23:59 23:59 23:59 Intake Total 1099 / 1099 1456 / 1456 1869 / 1869 Output Total 525 / 525 540 / 540 325 / 325 Balance 574 / 574 916 / 916 1544 / 1544 Laboratory Tests Past 24 Hrs 12/09/17 12/10/17 12/10/17 05:50 05:04 05:04 WBC 38.9 H* RBC 3.14 L Hgb 8.0 L Hct 24.8 L MCV 79.0 L MCH 25.5 L MCHC 32.3 RDW 15.4 H RDW Differential 44.4 H Plt Count 363 MPV 8.8 Neut % (Auto) Not Reportable Absolute Neuts (auto) 36.2 H Absolute Lymphs (auto) 0.78 L Total Counted 100 Neutrophils % (Manual) 90 H Band Neutrophils % 3 Lymphocytes % (Manual) 2 L Monocytes % (Manual) 4 Eosinophils % (Manual) 1 Diff Path Review May foll Platelet Estimate ADEQUATE Plt Morphology Comment LARGE Hypochromasia 1+ Anisocytosis 1+ Microcytosis 1+ Sodium 135 L Potassium 4.3 Chloride 104 Carbon Dioxide 18.0 L Anion Gap 13 BUN 81 H Creatinine 2.98 H Estim Creat Clear Calc 19.52 Est GFR (MDRD) Af Amer 21 L Est GFR (MDRD) Non-Af 17 L BUN/Creatinine Ratio 27.2 H Glucose 104 Calcium 8.3 L Iron 35 L TIBC 287 Iron Saturation 12.2 L Ferritin 1003 H Total Bilirubin 0.40 AST 89 H ALT 83 H Alkaline Phosphatase 681 H Total Protein 6.5 Albumin 1.5 L Globulin 5.0 H Albumin/Globulin Ratio 0.3 L POC Glucose 12/10/17 12/10/17 12/09/17 12:00 06:47 23:35 POC Glucose 72 97 148 H 12/09/17 15:42 POC Glucose 146 H Medical Necessity - Tobacco Use Smoking Status: Former smoker Tobacco Use: Non-smoker Assessment/Plan All Active Problems Anemia in chronic kidney disease (Acute) Osteomyelitis of foot, right, acute (Acute) UTI (urinary tract infection) (Acute) Sepsis (Acute) Neutrophilic leukocytosis (Acute) Cellulitis of right foot (Acute) Diabetic ulcer of right foot (Acute) MSSA (methicillin susceptible Staphylococcus aureus) (Resolved) Mycotic cystitis (Resolved) Osteomyelitis (Resolved) 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 Acute sepsis 2/2 UTI 2/2 chronic indwelling salgado - culture with Enterococcus , not VRE, on unasyn - pt tolerating. Leukocytosis continues to rise despite antibiotic therapy. -blood cultures negative. -ID consulted, will wait for final recommendation. -Oncology consult - leukocytosis likely reactive. Onc signing off. -Check Stool for Cdiff, hx of cdiff. Empiric po vanco 2. Chronic wounds - wound care consulted. Some self inflicted. Perineal wounds worsened with urinary contamination. -these do not appear infected 3. CKDIV - may be somewhat above baseline will provide gentle IV fluids with normal saline. Monitor sodium. 4. DMt2 - continue insulin + SSI. Controlled. 5. PVD - on pletal. 6. Bipolar disorder - continue home meds 7. Severe debility, deconditioning - pt refused PT. She has had a prior panniculectomy. May need to see plastics again for severe obesity and chronic wounds. 8. Chronic anemia - stable. Iron/sat low, normal TIBC, high ferritin (?acute reactant). Pt refused venofer unfortunately. DVT ppx: on eliquis DC planning: return to snf when appropriate This patient was seen by Adolfo Duong PA-C under the supervision of Doctor May. <Milo Olvera F - Last Filed: 12/10/17 15:41> - Physical Exam Vital Signs Temp Pulse Resp BP Pulse Ox 98.2 F 94 20 H 114/67 95 12/10/17 12:00 12/10/17 12:00 12/10/17 12:00 12/10/17 12:00 12/10/17 12:00 Oxygen Flow Rate (L/min) 2 Oxygen Delivery Method Nasal Cannula Weight: 368 lb 13.334 oz Body Mass Index (BMI) 57.7 Intake and Output for Last 24 Hours 12/08/17 12/09/17 12/10/17 23:59 23:59 23:59 Intake Total 1099 / 1099 1456 / 1456 1869 / 1869 Output Total 525 / 525 540 / 540 325 / 325 Balance 574 / 574 916 / 916 1544 / 1544 Laboratory Tests Past 24 Hrs 12/09/17 12/10/17 12/10/17 05:50 05:04 05:04 WBC 38.9 H* RBC 3.14 L Hgb 8.0 L Hct 24.8 L MCV 79.0 L MCH 25.5 L MCHC 32.3 RDW 15.4 H RDW Differential 44.4 H Plt Count 363 MPV 8.8 Neut % (Auto) Not Reportable Absolute Neuts (auto) 36.2 H Absolute Lymphs (auto) 0.78 L Total Counted 100 Neutrophils % (Manual) 90 H Band Neutrophils % 3 Lymphocytes % (Manual) 2 L Monocytes % (Manual) 4 Eosinophils % (Manual) 1 Diff Path Review Reviewed Platelet Estimate ADEQUATE Plt Morphology Comment LARGE Hypochromasia 1+ Anisocytosis 1+ Microcytosis 1+ Sodium 135 L Potassium 4.3 Chloride 104 Carbon Dioxide 18.0 L Anion Gap 13 BUN 81 H Creatinine 2.98 H Estim Creat Clear Calc 19.52 Est GFR (MDRD) Af Amer 21 L Est GFR (MDRD) Non-Af 17 L BUN/Creatinine Ratio 27.2 H Glucose 104 Calcium 8.3 L Iron 35 L TIBC 287 Iron Saturation 12.2 L Ferritin 1003 H Total Bilirubin 0.40 AST 89 H ALT 83 H Alkaline Phosphatase 681 H Total Protein 6.5 Albumin 1.5 L Globulin 5.0 H Albumin/Globulin Ratio 0.3 L POC Glucose 12/10/17 12/10/17 12/09/17 12:00 06:47 23:35 POC Glucose 72 97 148 H 12/09/17 15:42 POC Glucose 146 H Code Visit Addendum: Dr. Olvera I personally examined the patient and reviewed the chart. I agree with the above. Unsure as to why her WBC continues to rise. Appreciate ID recommendations. C. diff pending but given institutionalization, empirically treated with PO vanc. WBC is down slightly today, hopefully can DC to SNF soon. Inpatient E&M: 43092 Subs Hosp L2
[2017-12-10 17:50] LABS: Bedside Glucose 63 mg/dL (70-110)
[2017-12-10 18:02] VITALS: BP 115/55; PULSE 98; RESP 20; TEMP 36.8; O2SAT 92
[2017-12-10 18:35] LABS: Bedside Glucose 83 mg/dL (70-110)
[2017-12-10] MEDS: Pravastatin 20 MG Tablet 10 MG PO (22:36)
[2017-12-10] MEDS: hydrOXYzine PAM 25 MG Capsule 50 MG PO (22:37)
[2017-12-10] MEDS: NYSTATIN 500,000 UNIT/5 ML UDC 500000 UNIT PO (22:37)
[2017-12-10 22:50] VITALS: BP 139/84; PULSE 99; RESP 20; TEMP 36.5; O2SAT 99
[2017-12-10 23:15] LABS: Bedside Glucose 76 mg/dL (70-110)
[2017-12-10 23:40] LABS: Bedside Glucose 76 mg/dL (70-110)
--- NOTE | 2017-12-11 03:02 | NURSING ---
While rounding found patient's gown bloody, nurse asked patient why her gown was bloody. Patient replied, I picked my scabs, and you can't stop me, I have been doing it since I was [age] years old. Nurse found the whole abdominal dressing pulled off, the wounds were bleeding. Fingers bloody.
[2017-12-11 03:06] LABS: Bedside Glucose 102 mg/dL (70-110)
[2017-12-11 04:44] VITALS: BP 115/64; PULSE 97; RESP 18; TEMP 36.8; O2SAT 94
[2017-12-11 06:41] LABS: ALB/GLOB Ratio 0.2 RATIO (0.9-2.4); AST(SGOT) 116 U/L (15-37); Alanine Aminotransfer ALT/SGPT 91 U/L (13-56); Albumin, Serum 1.3 g/dL (3.2-5.0); Alkaline Phosphatase 751 U/L (45-117); Anion Gap 15 (5-15); BUN 79 mg/dL (7-18); BUN/Creat Ratio 27.5 RATIO (10-20); Calcium,Total 8.1 mg/dL (8.5-10.1); Chloride 106 mmol/L (98-107); Creatinine, Serum 2.87 mg/dL (0.55-1.02); EST Glomerular Filtration Rate 18 mL/min (>60); Est Glom Filt Rate - Afr Amer 22 mL/min (>60); Estimated Creatinine Clearance 20.27 ml/min; Globulin 5.4 g/dL (2.2-4.2); Glucose 81 mg/dL (74-106); Potassium 4.1 mmol/L (3.5-5.1); Protein, Total 6.7 g/dL (6.4-8.2); Sodium Level 135 mmol/L (136-145)
[2017-12-11 06:50] LABS: Absolute Lymphocyte Count 1.67 X10^3/ul (0.83-4.51); Absolute Neutrophil Count 27.1 X10^3/uL (2.0-7.7); Basophil# 0.07 X10^3/uL; Basophil% 0.2 % (0-1); Eosinophils% 1.3 % (0-5); Hematocrit 25.4 % (37-47); Lymphocyte # 1.67 X10^3/ul (4.0); Lymphocyte % 5.4 % (19-41); Mean Corp Hgb Conc 31.5 g/gl (32-36); Mean Corpuscular Hgb 25.5 pg (27.0-32.0); Mean Corpuscular Volume 80.9 fL (81-99); Mean Platelet Vol. 8.8 fl (6.2-12.0); Monocyte# 1.12 X10^3/uL; Monocyte% 3.6 % (0-10); Neutrophil # 27.14 X10^3/uL (2.7-7.7); Neutrophil % 87.5 % (47-70); Platelet Count 351 K/mm3 (150-450); RBC Distribution Width CV 15.6 % (11.6-14.6); RBC Distribution Width SD 46.7 fl (35.1-43.9); Red Blood Count 3.14 M/mm3 (4.2-5.4)
[2017-12-11 06:54] LABS: Differential Indicated SCAN CRITERIA MET; POSITIVE COUNT YES; POSITIVE DIFFERENTIAL YES; POSITIVE MORPHOLOGY YES
[2017-12-11 07:10] LABS: Differential Comment SCAN; Platelet Estimate ADEQUATE (ADEQ); Platelet Morphology LARGE
[2017-12-11 07:21] LABS: Bedside Glucose 76 mg/dL (70-110)
[2017-12-11 10:13] VITALS: BP 120/64; PULSE 94; RESP 18; TEMP 36.8; O2SAT 99
[2017-12-11 11:00] LABS: Bedside Glucose 77 mg/dL (70-110)
--- NOTE | 2017-12-11 11:03 | PCM.TXEXTCAR ---
- Routine Orders/Code Status Suppository Type: Dulcolax 10mg Suppository Frequency: Daily PRN O2 Frequency: PRN Routine Lab Work: CBC - 3 days, BMP - 3 days Code Status: Full Code - Wound(s) generalized Wound Type: scabs coccyx and buttocks Wound Type: combination of moisture related open areas/shearing Dressing Change: Mepilex abdomen picking scabs Wound Type: non healing wounds from picking Dressing Change: Adaptic - Therapies Physical Therapy: Eval and Treat Occupational Therapy: Eval and Treat - Problem/Diagnosis (1) UTI (urinary tract infection) Status: Acute Current Visit: Yes (2) Sepsis Status: Acute Current Visit: Yes (3) Type 2 diabetes mellitus with diabetic polyneuropathy Status: Chronic Current Visit: No (4) History of tobacco abuse Status: Chronic Current Visit: No (5) HLD (hyperlipidemia) Status: Chronic Current Visit: No (6) HTN (hypertension) Status: Chronic Current Visit: No (7) Morbid obesity Status: Chronic Comment: bmi 46 Current Visit: No (8) History of self-harm Status: Chronic Comment: scratching and picking Current Visit: No (9) Type 2 diabetes mellitus Status: Chronic Current Visit: No (10) Bipolar disorder Status: Chronic Current Visit: No (11) Anxiety Status: Chronic Current Visit: No (12) CKD stage 3 secondary to diabetes Status: Chronic Current Visit: No (13) Iron deficiency anemia Status: Chronic Current Visit: Yes - Allergies/Procedures Done in Hospital Allergies/Adverse Reactions: Allergies adhesive Allergy (Verified 12/06/17 12:50) Rash cefadroxil hydrate [From Duricef] Allergy (Verified 12/06/17 12:50) Rash cephalexin monohydrate [From Keflex] Allergy (Verified 12/06/17 12:50) Rash venom-honey bee [bee venom (honey bee)] Allergy (Verified 12/06/17 12:50) Rash Procedures: None - Type of Care/Length of Stay Estimated LOS: Convalescent Care Less Than 30 days Type of Care Needed: Skilled Rehab Potential: Fair Prognosis: Fair - Additional Orders/Day of Discharge Additional Orders: daily wound care. routine salgado changes. Day of Discharge: 12/11/17 - Dietary and Speech Recommendations Dietitian Recommendations/Changes: Rec diet change to 1800 calorie controlled, cardiac, low sodium. Rec Yunier BID for wound healing. Suspect pt will refuse Glucerna ONS as she has during previous admissions; will leave ordered and provide 1 scoop Beneprotein w/ meals as pt is usually more accepting of. - Follow Up Care Primary Care Physician: Leroy Marie MD [Primary Care Provider] - Please follow up with your Primary Care Physician in: 1-2 weeks
--- NOTE | 2017-12-11 11:34 | PCM.DC.SUM ---
Discharge Date and Diagnosis - Problem List Patient Problems: Active and Suspected Problems UTI (urinary tract infection) (Acute) Sepsis (Acute) Neutrophilic leukocytosis (Acute) Date of Admission: 12/06/17 Date of Discharge: 12/11/17 - Primary Discharge Diagnosis Active and Suspected Problems Acute sepsis 2/2 Acute CAUTI Chronic nonhealing wounds, self inflicted Morbid obesity Debility with inability to ambulate Iron deficiency anemia Elevated LFTs, likely 2/2 fatty liver disease CKD stage IV with normal anion gap metabolic acidosis Bipolar disorder - Secondary Discharge Diagnosis Chronic Problems Iron deficiency anemia (Chronic) Type 2 diabetes mellitus with diabetic polyneuropathy (Chronic) History of tobacco abuse (Chronic) HLD (hyperlipidemia) (Chronic) HTN (hypertension) (Chronic) Morbid obesity (Chronic) bmi 46 Noncompliance (Chronic) with diabetic therapy Personality disorder (Chronic) History of self-harm (Chronic) scratching and picking Self neglect (Chronic) Type 2 diabetes mellitus (Chronic) Bipolar disorder (Chronic) Anxiety (Chronic) 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 2 diabetes mellitus with diabetic polyneuropathy (Chronic) Hospital Course and Treatment Imaging Results: RAD/Chest 1 View (Portable) IMPRESSION: Cardiomegaly. RAD/Chest 1 View (Portable) IMPRESSION: There has been no change since the prior study. US/Abdomen Limited IMPRESSION: Fatty enlarged liver. Gallbladder sludge and trace pericholecystic fluid. Borderline common bile duct. Consultations 12/06/17 16:57 Consult: Onc/Wound/automation technologist Routine Comment: Operations: None Procedures: None Summary of Care Provided: Physical exam on day of discharge: General: Resting comfortably NAD Psych: A/Ox3 normal affect HEENT: PEARRLA AT NC Neck: Supple NT CV: RRR no m/t/r/g/h Resp: CTA no adventitious sounds appreciated Abd: [id number] Soft NT no guarding or rigidity, abdominal wounds are dressed appropriately. Morbid obesity. Ext: DP2+= no edema Skin: W/D normal turgor Lymph/Heme: No active bleeding or adenopathy Neuro: CN2-12 intact Salgado, draining clear yellow Hospital course: The patient is a 62 year old F with a hx of CKDIV, debility, SNF resident, Morbid obesity, DMt2, bipolar disorder, anxiety, tobacco abuse, HTN, Chronic wounds, prior osteo with prior amputations hx VRE, who presented to the ER from SNF with generalized malaise. She had taken an unspecified abx for uti with no relief. In the ER she appeared to be septic with UTI. She has a chronic salgado for the purpose of keeping urine out of her perineal wounds. This was changed at admission. She was started on Rocephin and admitted to [facility]. She had a dramatic elevation in her WBC count and ID and oncology were consulted. This was presumed to be 2/2 reactive change from infection. Blood cultures were negative. Urine showed enterococcus, not VRE. She was placed on unasyn. She had recently been dx'd with cdiff so ID placed on her vancomycin empirically to cover for this. Discontinued by attending. She began to have improvement in her WBC count. Oncology recommended Venofer in addition to her oral iron for iron deficiency anemia, however she declined this. She had some elevations in her LFTs, ultrasound showed fatty liver changes. Nonspecific gallbladder changes and symptoms were not significant for acute cholecystitis. Her gap was trending up so she was placed on oral bicarb. She will need to see a patriot missile air defense artillery as an outpatient in 1-2 weeks, rec dr. Gutierrez unless patient has already established care elsewhere. Please also follow up with PCP in 1-2 weeks. She requires 3 more days of oral amoxicillin, 6 doses. Continue routine Salgado care and Salgado changes as directed. Continue wound care as directed. She needs aggressive physical therapy. This patient was seen by Adolfo Duong PA-C under the supervision of Doctor Dolores. [] Discharge Diet: Low fat/ Low Cholesterol, 1800 Calorie Control Diet, 2000 mg Sodium Diet Discharge Activity: Return to Normal Activity Home Medications: Medications to take at Discharge Ascorbic Acid [Vitamin C] 500 mg PO BIDCM #30 tablet 10/10/13 Ferrous Sulfate 325 mg PO BIDCM 01/21/15 Acetaminophen [Tylenol Tablet] 650 mg PO Q4H PRN 03/20/17 Bisacodyl 10 mg RC DAILY PRN PRN 03/20/17 Cholecalciferol (Vitamin D3) [Vitamin D3] 2,000 unit PO DAILY 09/12/17 Cilostazol [Pletal] 50 mg PO BIDAC 09/12/17 Hydroxyzine HCl 25 mg PO DAILY 09/12/17 Multivitamins,Therapeutic [Multivitamin] 1 tablet PO DAILY 09/12/17 Apixaban [Eliquis] 5 mg PO BID tablet 09/18/17 Calcium Carbonate/Vitamin D3 [Calcium 600-Vit D3 200 Tablet] 1 tab PO BID 12/06/17 Epoetin Carlos Eduardo [Procrit] 10,000 unit SQ QWEEK PRN 12/06/17 Guaifenesin Dm [Robitussin Dm] 10 ml PO Q6H PRN PRN 12/06/17 Hydroxyzine Pamoate [Vistaril] 50 mg PO QHS 12/06/17 Insulin Glargine,Hum.rec.anlog [Basaglar Kwikpen U-100] 40 unit SQ QHS 12/06/17 Insulin Glargine,Hum.rec.anlog [Basaglar Kwikpen U-100] 55 unit SQ DAILY 12/06/17 L. Acidophilus/Pectin, Teller [Acidophilus Capsule] 1 cap PO DAILY 12/06/17 Magnesium Hydroxide [Milk Of Magnesia] 30 ml PO DAILY PRN PRN 12/06/17 Nystatin Powder [Mycostatin Powder] 1 applic TOPICAL BID 12/06/17 Paroxetine HCl [Paxil] 20 mg PO DAILY 12/06/17 Pravastatin Sodium [Pravachol] 10 mg PO QHS 12/06/17 Pyridoxine HCl [Vitamin B-6] 100 mg PO DAILY 12/06/17 Quetiapine Fumarate [Seroquel] 200 mg PO DAILY 12/06/17 Venlafaxine HCl [Venlafaxine HCl ER] 225 mg PO DAILY 12/06/17 Amoxicillin 500 mg PO BID #6 tab 12/11/17 Menthol/Lanolin/Calamine/Znox [Calmoseptine Ointment] 1 applic TOPICAL TID PRN PRN tube 12/11/17 Nystatin 500,000 unit PO 4X/DAY udc 12/11/17 Vancomcyin 125mg/5mL PO Liquid 125 mg PO Q6 14 Days po.syringe 12/11/17 Following Prescrptions Were Given to Patient: Amoxicillin 500 mg PO BID #6 tab Vancomcyin 125mg/5mL PO Liquid 125 mg PO Q6 14 Days po.syringe Primary Care Physician: Leroy Marie MD [Primary Care Provider] - Please follow up with your Primary Care Physician in: 1-2 weeks Disposition: [facility] facility Minutes spent on discharge:: 35 Patient Condition:: Stable Medical Necessity - Tobacco Use Smoking Status: Former smoker Tobacco Use: Non-smoker Meaningful Use Info Meaningful Use Diagnoses (Choose all that apply): None applicable
--- NOTE | 2017-12-11 11:47 | DS.PCM_ITS ---
Discharge Date and Diagnosis - Problem List Patient Problems: Active and Suspected Problems UTI (urinary tract infection) (Acute) Sepsis (Acute) Neutrophilic leukocytosis (Acute) Date of Admission: 12/06/17 Date of Discharge: 12/11/17 - Primary Discharge Diagnosis Active and Suspected Problems Acute sepsis 2/2 Acute CAUTI Chronic nonhealing wounds, self inflicted Morbid obesity Debility with inability to ambulate Iron deficiency anemia Elevated LFTs, likely 2/2 fatty liver disease CKD stage IV with normal anion gap metabolic acidosis Bipolar disorder - Secondary Discharge Diagnosis Chronic Problems Iron deficiency anemia (Chronic) Type 2 diabetes mellitus with diabetic polyneuropathy (Chronic) History of tobacco abuse (Chronic) HLD (hyperlipidemia) (Chronic) HTN (hypertension) (Chronic) Morbid obesity (Chronic) bmi 46 Noncompliance (Chronic) with diabetic therapy Personality disorder (Chronic) History of self-harm (Chronic) scratching and picking Self neglect (Chronic) Type 2 diabetes mellitus (Chronic) Bipolar disorder (Chronic) Anxiety (Chronic) 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 2 diabetes mellitus with diabetic polyneuropathy (Chronic) Hospital Course and Treatment Imaging Results: RAD/Chest 1 View (Portable) IMPRESSION: Cardiomegaly. RAD/Chest 1 View (Portable) IMPRESSION: There has been no change since the prior study. US/Abdomen Limited IMPRESSION: Fatty enlarged liver. Gallbladder sludge and trace pericholecystic fluid. Borderline common bile duct. Consultations 12/06/17 16:57 Consult: Onc/Wound/gate cutter Routine Comment: Operations: None Procedures: None Summary of Care Provided: Physical exam on day of discharge: General: Resting comfortably NAD Psych: A/Ox3 normal affect HEENT: PEARRLA AT NC Neck: Supple NT CV: RRR no m/t/r/g/h Resp: CTA no adventitious sounds appreciated Abd: [id number] Soft NT no guarding or rigidity, abdominal wounds are dressed appropriately. Morbid obesity. Ext: DP2+= no edema Skin: W/D normal turgor Lymph/Heme: No active bleeding or adenopathy Neuro: CN2-12 intact Salgado, draining clear yellow Hospital course: The patient is a 62 year old F with a hx of CKDIV, debility, SNF resident, Morbid obesity, DMt2, bipolar disorder, anxiety, tobacco abuse, HTN, Chronic wounds, prior osteo with prior amputations hx VRE, who presented to the ER from SNF with generalized malaise. She had taken an unspecified abx for uti with no relief. In the ER she appeared to be septic with UTI. She has a chronic salgado for the purpose of keeping urine out of her perineal wounds. This was changed at admission. She was started on Rocephin and admitted to [facility]. She had a dramatic elevation in her WBC count and ID and oncology were consulted. This was presumed to be 2/2 reactive change from infection. Blood cultures were negative. Urine showed enterococcus, not VRE. She was placed on unasyn. She had recently been dx'd with cdiff so ID placed on her vancomycin empirically to cover for this. Discontinued by attending. She began to have improvement in her WBC count. Oncology recommended Venofer in addition to her oral iron for iron deficiency anemia, however she declined this. She had some elevations in her LFTs, ultrasound showed fatty liver changes. Nonspecific gallbladder changes and symptoms were not significant for acute cholecystitis. Her gap was trending up so she was placed on oral bicarb. She will need to see a capsule machine operator as an outpatient in 1-2 weeks, rec dr. Gutierrez unless patient has already established care elsewhere. Please also follow up with PCP in 1-2 weeks. She requires 3 more days of oral amoxicillin, 6 doses. Continue routine Salgado care and Salgado changes as directed. Continue wound care as directed. She needs aggressive physical therapy. This patient was seen by Adolfo Duong PA-C under the supervision of Doctor Dolores. [] Discharge Diet: Low fat/ Low Cholesterol, 1800 Calorie Control Diet, 2000 mg Sodium Diet Discharge Activity: Return to Normal Activity Home Medications: Medications to take at Discharge Ascorbic Acid [Vitamin C] 500 mg PO BIDCM #30 tablet 10/10/13 Ferrous Sulfate 325 mg PO BIDCM 01/21/15 Acetaminophen [Tylenol Tablet] 650 mg PO Q4H PRN 03/20/17 Bisacodyl 10 mg RC DAILY PRN PRN 03/20/17 Cholecalciferol (Vitamin D3) [Vitamin D3] 2,000 unit PO DAILY 09/12/17 Cilostazol [Pletal] 50 mg PO BIDAC 09/12/17 Hydroxyzine HCl 25 mg PO DAILY 09/12/17 Multivitamins,Therapeutic [Multivitamin] 1 tablet PO DAILY 09/12/17 Apixaban [Eliquis] 5 mg PO BID tablet 09/18/17 Calcium Carbonate/Vitamin D3 [Calcium 600-Vit D3 200 Tablet] 1 tab PO BID Epoetin Carlos Eduardo [Procrit] 10,000 unit SQ QWEEK PRN 12/06/17 Guaifenesin Dm [Robitussin Dm] 10 ml PO Q6H PRN PRN 12/06/17 Hydroxyzine Pamoate [Vistaril] 50 mg PO QHS 12/06/17 Insulin Glargine,Hum.rec.anlog [Basaglar Kwikpen U-100] 40 unit SQ QHS 12/06/17 Insulin Glargine,Hum.rec.anlog [Basaglar Kwikpen U-100] 55 unit SQ DAILY L. Acidophilus/Pectin, Kleberg [Acidophilus Capsule] 1 cap PO DAILY 12/06/17 Magnesium Hydroxide [Milk Of Magnesia] 30 ml PO DAILY PRN PRN 12/06/17 Nystatin Powder [Mycostatin Powder] 1 applic TOPICAL BID 12/06/17 Paroxetine HCl [Paxil] 20 mg PO DAILY 12/06/17 Pravastatin Sodium [Pravachol] 10 mg PO QHS 12/06/17 Pyridoxine HCl [Vitamin B-6] 100 mg PO DAILY 12/06/17 Quetiapine Fumarate [Seroquel] 200 mg PO DAILY 12/06/17 Venlafaxine HCl [Venlafaxine HCl ER] 225 mg PO DAILY 12/06/17 Amoxicillin 500 mg PO BID #6 tab 12/11/17 Menthol/Lanolin/Calamine/Znox [Calmoseptine Ointment] 1 applic TOPICAL TID PRN PRN tube 12/11/17 Nystatin 500,000 unit PO 4X/DAY udc 12/11/17 Vancomcyin 125mg/5mL PO Liquid 125 mg PO Q6 14 Days po.syringe 12/11/17 Following Prescrptions Were Given to Patient: Amoxicillin 500 mg PO BID #6 tab Vancomcyin 125mg/5mL PO Liquid 125 mg PO Q6 14 Days po.syringe Primary Care Physician: Leroy Marie MD [Primary Care Provider] - Please follow up with your Primary Care Physician in: 1-2 weeks Disposition: Intermediate facility Minutes spent on discharge:: 35 Patient Condition:: Stable Medical Necessity - Tobacco Use Smoking Status: Former smoker Tobacco Use: Non-smoker Meaningful Use Info Meaningful Use Diagnoses (Choose all that apply): None applicable
[2017-12-11] MEDS: Ferrous Sulfate 325 MG Tablet PO ×2 (11:58→18:04)
[2017-12-11] MEDS: AMOXICILLIN 500 MG CAPSULE PO (11:58)
[2017-12-11] MEDS: QUEtiapine 100 MG Tablet 200 MG PO (11:58)
[2017-12-11] MEDS: Venlafaxine XR 75 MG Capsule 225 MG PO (11:59)
[2017-12-11] MEDS: APIXABAN 5 MG TABLET PO (11:59)
[2017-12-11] MEDS: Nystatin Powder 15gm Bottle 1 APPLIC TOPICAL (12:00)
--- NOTE | 2017-12-11 12:21 | PCM.PN.ID ---
Patient Problems: Active and Suspected Problems UTI (urinary tract infection) (Acute) Sepsis (Acute) Neutrophilic leukocytosis (Acute) Subjective: Feeling ok, no fever, mild abd soreness, no new rash - Physical Exam General: Alert, Cooperative, No apparent distress Lungs: Clear to auscultation, Normal air movement Cardiovascular: Regular rate, Regular Rhythm Abdomen: Soft, Non Tender, Non-Distended Extremities: Edema Skin: Rash Present Vital Signs Temp Pulse Resp BP Pulse Ox 98.2 F 94 18 120/64 99 12/11/17 10:13 12/11/17 10:13 12/11/17 10:13 12/11/17 10:13 12/11/17 10:13 Oxygen Flow Rate (L/min) 2 Oxygen Delivery Method Room Air Weight: 167.3 kg Body Mass Index (BMI) 57.7 Intake and Output for Last 24 Hours 12/09/17 12/10/17 12/11/17 23:59 23:59 23:59 Intake Total 1456 / 1456 3203 / 3203 1332 / 1332 Output Total 540 / 540 625 / 625 575 / 575 Balance 916 / 916 2578 / 2578 757 / 757 Laboratory Tests Past 24 Hrs 12/10/17 12/11/17 12/11/17 05:04 05:16 05:16 WBC 31.0 H* RBC 3.14 L Hgb 8.0 L Hct 25.4 L MCV 80.9 L MCH 25.5 L MCHC 31.5 L RDW 15.6 H RDW Differential 46.7 H Plt Count 351 MPV 8.8 Immature Gran % (Auto) 2.000 H Neut % (Auto) 87.5 H Lymph % (Auto) 5.4 L [place] % (Auto) 3.6 Eos % (Auto) 1.3 Baso % (Auto) 0.2 Absolute Neuts (auto) 27.1 H Absolute Lymphs (auto) 1.67 Total Counted Not Reportable Differential Comment SCAN Diff Path Review Reviewed May foll Platelet Estimate ADEQUATE Plt Morphology Comment LARGE Sodium 135 L Potassium 4.1 Chloride 106 Carbon Dioxide 14.0 L Anion Gap 15 BUN 79 H Creatinine 2.87 H Estim Creat Clear Calc 20.27 Est GFR (MDRD) Af Amer 22 L Est GFR (MDRD) Non-Af 18 L BUN/Creatinine Ratio 27.5 H Glucose 81 Calcium 8.1 L Phosphorus Total Bilirubin 0.40 AST 116 H ALT 91 H Alkaline Phosphatase 751 H Total Protein 6.7 Albumin 1.3 L Globulin 5.4 H Albumin/Globulin Ratio 0.2 L PTH Intact 12/11/17 12/11/17 05:16 05:16 WBC RBC Hgb Hct MCV MCH MCHC RDW RDW Differential Plt Count MPV Immature Gran % (Auto) Neut % (Auto) Lymph % (Auto) [place] % (Auto) Eos % (Auto) Baso % (Auto) Absolute Neuts (auto) Absolute Lymphs (auto) Total Counted Differential Comment Diff Path Review Platelet Estimate Plt Morphology Comment Sodium Potassium Chloride Carbon Dioxide Anion Gap BUN Creatinine Estim Creat Clear Calc Est GFR (MDRD) Af Amer Est GFR (MDRD) Non-Af BUN/Creatinine Ratio Glucose Calcium Phosphorus Pending Total Bilirubin AST ALT Alkaline Phosphatase Total Protein Albumin Globulin Albumin/Globulin Ratio PTH Intact Pending POC Glucose 12/11/17 12/11/17 12/11/17 10:52 07:08 02:52 POC Glucose 77 76 102 12/10/17 12/10/17 12/10/17 23:14 20:29 18:33 POC Glucose 76 76 83 12/10/17 12/10/17 17:40 12:00 POC Glucose 63 L 72 Medical Necessity - Tobacco Use Smoking Status: Former smoker Tobacco Use: Non-smoker Route of nutrition/ use of supplements: [] Nutritional Intake: [] IV Site: [] Shay Catheter: [] - Assessment/Plan Antibiotics: [] Assessment/Plan: [] Active and Suspected Problems UTI (urinary tract infection) (Acute) Sepsis (Acute) Neutrophilic leukocytosis (Acute) enterococcal complicated uti - amoxicillin for 3 more days cdiff diarrhea - po vanc for 14 more days Will follow, ok for d/c to facility, d/w primary team
[2017-12-11 12:29] LABS: Phosphorus 2.2 mg/dL (2.5-4.9)
[2017-12-11 12:31] LABS: PTHIN 60.5 pg/mL (18.4-80.1)
--- NOTE | 2017-12-11 15:54 | NURSING ---
Report called to [facility] at this time- notified of 1829 departure from [facility]. Also notified of order for f/u with nephrology in 1-2 weeks- understanding verbalized.
[2017-12-11 16:15] VITALS: BP 103/58; PULSE 93; RESP 18; TEMP 36.6; O2SAT 98
[2017-12-11] MEDS: Cilostazol 50 MG Tablet PO (16:31)
--- NOTE | 2017-12-11 16:50 | PCM.DC ---
- Discharge Diagnoses Current Active Problems: Current Active and Chronic Problems Iron deficiency anemia (Chronic) UTI (urinary tract infection) (Acute) Sepsis (Acute) Neutrophilic leukocytosis (Acute) Discharge Activity: Return to Normal Activity Allergies/Adverse Reactions: Allergies adhesive Allergy (Verified 12/06/17 12:50) Rash cefadroxil hydrate [From Duricef] Allergy (Verified 12/06/17 12:50) Rash cephalexin monohydrate [From Keflex] Allergy (Verified 12/06/17 12:50) Rash venom-honey bee [bee venom (honey bee)] Allergy (Verified 12/06/17 12:50) Rash Medications to take at Discharge Ascorbic Acid [Vitamin C] 500 mg PO BIDCM #30 tablet 10/10/13 Ferrous Sulfate 325 mg PO BIDCM 01/21/15 Acetaminophen [Tylenol Tablet] 650 mg PO Q4H PRN 03/20/17 Bisacodyl 10 mg RC DAILY PRN PRN 03/20/17 Cilostazol [Pletal] 50 mg PO BIDAC 09/12/17 Multivitamins,Therapeutic [Multivitamin] 1 tablet PO DAILY 09/12/17 Apixaban [Eliquis] 5 mg PO BID tablet 09/18/17 Epoetin Carlos Eduardo [Procrit] 10,000 unit SQ QWEEK PRN 12/06/17 Insulin Glargine,Hum.rec.anlog [Basaglar Kwikpen U-100] 40 unit SQ QHS 12/06/17 Insulin Glargine,Hum.rec.anlog [Basaglar Kwikpen U-100] 55 unit SQ DAILY 12/06/17 L. Acidophilus/Pectin, [place] [Acidophilus Capsule] 1 cap PO DAILY 12/06/17 Magnesium Hydroxide [Milk Of Magnesia] 30 ml PO DAILY PRN PRN 12/06/17 Nystatin Powder [Mycostatin Powder] 1 applic TOPICAL BID 12/06/17 Pravastatin Sodium [Pravachol] 10 mg PO QHS 12/06/17 Pyridoxine HCl [Vitamin B-6] 100 mg PO DAILY 12/06/17 Quetiapine Fumarate [Seroquel] 200 mg PO DAILY 12/06/17 Venlafaxine HCl [Venlafaxine HCl ER] 225 mg PO DAILY 12/06/17 Amoxicillin 500 mg PO BID #6 tab 12/11/17 Calcitriol [Rocaltrol] 0.25 mcg PO DAILY 30 Days capsule 12/11/17 Calcium Carbonate [Tums] 500 mg PO TIDCM 30 Days tablet 12/11/17 Insulin Lispro [Humalog KwikPen] See Protocol SQ ACHS insuln.pen 12/11/17 Menthol/Lanolin/Calamine/Znox [Calmoseptine Ointment] 1 applic TOPICAL TID PRN PRN tube 12/11/17 Sodium Bicarbonate 1,300 mg PO TID 30 Days tablet 12/11/17 Vancomcyin 125mg/5mL PO Liquid 125 mg PO Q6 14 Days po.syringe 12/11/17 The following prescriptions were given: Calcitriol [Rocaltrol] 0.25 mcg PO DAILY 30 Days capsule Vancomcyin 125mg/5mL PO Liquid 125 mg PO Q6 14 Days po.syringe Amoxicillin 500 mg PO BID #6 tab Calcium Carbonate [Tums] 500 mg PO TIDCM 30 Days tablet Sodium Bicarbonate 1,300 mg PO TID 30 Days tablet Primary Care Physician: Leroy Marie MD [Primary Care Provider] - Please follow up with your Primary Care Physician in: 1-2 weeks Test Results: Test results from this visit will be discussed in further detail at your follow-up appointment, if applicable. Proposed Discharge Date: 12/11/17
--- NOTE | 2017-12-11 16:57 | CASEMGMT ---
Social Work Note Pt is being discharged today. STEPHAN faxed completed discharge paperwork to [facility] including transfer to extended care facility, signed medication list and any scripts. Originals on SNF folder and copy on pt's chart. STEPHAN set up transportation through [facility] via bariatric cot for 6:30pm. Transportation form on SNF folder and copy on pt's chart. [facility] in [place] is not needed to be completed as pt is from nursing home side at [facility] and is returning to nursing home side. STEPHAN updated JALIL Rhodes, litigation legal secretary and placed a call to [facility] to update on transportation time. Plan: Pt to discharge to [facility] today via bariatric cot through [facility] at 6:30pm Anette Long BRAILLE TEACHER, GRANULATOR MACHINE OPERATOR
[2017-12-11 17:01] LABS: Bedside Glucose 82 mg/dL (70-110)
[2017-12-11] MEDS: Sodium Bicarbonate 650 MG Tablet 1300 MG PO (18:04)
[2017-12-11] MEDS: Calcium Carbonate 500 MG Tablet PO (18:04)
[2017-12-12 14:18] LABS: Pathologist Review Reviewed
== END 2017-12-11 19:31 | disposition intermediate care facility (04) | DRG 699 ==
LOC: ED 13:02 → MS3 15:31
PROVIDERS: Internal Medicine; Internal Medicine Infectious Disease; Nurse Practitioner Family; Physician Assistant; Admitting Provider Family Medicine; Emergency Provider Emergency Medicine; Family Provider Family Medicine; PCP Family Medicine; Visit Provider Internal Medicine
DX: T83.511A Infection and inflammatory reaction due to indwelling urethral catheter, initial encounter (principal); Z68.43 Body mass index [BMI] 50.0-59.9, adult; N18.4 Chronic kidney disease, stage 4 (severe); N39.0 Urinary tract infection, site not specified; E11.42 Type 2 diabetes mellitus with diabetic polyneuropathy; E78.5 Hyperlipidemia, unspecified; E66.01 Morbid (severe) obesity due to excess calories; Y84.6 Urinary catheterization as the cause of abnormal reaction of the patient, or of later complication, without mention of misadventure at the time of the procedure; F31.9 Bipolar disorder, unspecified; E11.22 Type 2 diabetes mellitus with diabetic chronic kidney disease; D50.9 Iron deficiency anemia, unspecified; B95.2 Enterococcus as the cause of diseases classified elsewhere; Z89.512 Acquired absence of left leg below knee; Z79.4 Long term (current) use of insulin; Z87.891 Personal history of nicotine dependence; Z91.5 Personal history of self-harm; I12.9 Hypertensive chronic kidney disease with stage 1 through stage 4 chronic kidney disease, or unspecified chronic kidney disease
CPT/HCPCS: 36415; 71045; 76705; 80048; 80053; 81001; 82728; 82962; 83540; 83550; 83605; 83970; 84100; 85025; 85610; 85730; 87040; 87077; 87086; 87088; 87186; 93005; 97802; 99284; J7030; J7050; A4216; J0295; J0744

== ENCOUNTER → 2017-12-19 09:25 | Outpatient (CLI) | payer MEDICARE, SELFPAY ==
[2017-12-19 09:32] VITALS: BP 105/61; PULSE 95; RESP 16; TEMP 36.4; O2SAT 98; BMI 54.8
[2017-12-19 10:31] VITALS: BP 103/57; PULSE 87; RESP 16; TEMP 37.1; O2SAT 91
[2017-12-19 11:31] VITALS: BP 103/68; PULSE 85; RESP 16; TEMP 35.5; O2SAT 96
[2017-12-19 13:08] VITALS: BP 121/66; PULSE 87; RESP 18; TEMP 36.1; O2SAT 97
--- NOTE | 2017-12-19 14:44 | NURSING ---
PT SLEEPING IN BED, REPORT CALLED TO MICHAEL NURSE AT [facility]. WAITING ON TRANSPORTATION BACK TO [facility].
== END ==
PROVIDERS: Family Provider Family Medicine; PCP Family Medicine
DX: D64.9 Anemia, unspecified (principal)
CPT/HCPCS: 36430; 86850; 86900; 86920; 86922; J7040; P9016; A4216

== ENCOUNTER 2018-01-27 01:35 | Emergency (ER) | payer MEDICARE, SELFPAY ==
[2018-01-27 01:37] VITALS: BP 104/65; PULSE 103; RESP 20; TEMP 37.3; O2SAT 84; BMI 55.7
--- NOTE | 2018-01-27 01:51 | EKG12_ITS ---
Test Reason : EKG CHANGES Blood Pressure : / mmHG Vent. Rate : 103 BPM Atrial Rate : 103 BPM P-R Int : 170 ms QRS Dur : 084 ms QT Int : 304 ms P-R-T Axes : 035 -01 167 degrees QTc Int : [address] & T wave abnormality, consider lateral ischemia Poor R wave progression Abnormal ECG Confirmed by CONY SAN, ANNA MARIE ([id number]), graphic editor VITOR OSULLIVAN ([id number] on 01/28/2018 10:30:31 AM Referred By: DR PINO Confirmed By:ANNA MARIE DONNELLY MD
--- NOTE | 2018-01-27 01:54 | ED.VISSUMM ---
- ER Visit Summary Date of Service: 01/27/18 Chief Complaint: Per care home facility patient was combative History of Present Illness: The patient is a 62 F history of diabetes, hypertension, anemia, chronic renal insufficiency, obesity, OCD and bipolar disorder. Prior left below the knee amputation. Patient is currently being treated for urinary tract infection. Is on IV antibiotics at the care home. Reportedly tonight she has had hallucinations and they want her sent in for evaluation. They will assist and she was combative. Per the squad they said the patient was cooperative the entire time and had stable vital signs. Physical Examination: Well-appearing older female. Vital signs are currently stable except for hypoxia.. She is afebrile. Her pulse ox is reportedly 84% on nasal cannula O2. Consistent with hypoxia. She currently is in no distress. She is awake and alert. She answers questions and follows commands. Currently she is calm and not combative. HEENT exam unremarkable. Moist mucous membranes. Neck nontender. Lungs clear to auscultation bilaterally. Heart regular rhythm rate about 100-105 no murmur. Abdomen is obese but soft. She has excoriations on her abdominal wall. She is moving all 4 extremities. She has a left below the knee amputation. Right heel is well-padded. Neurologically she is awake. She does answer questions and follows commands. All 4 extremities. She does know the month, year and president. Her speech is not slurred. Test Results: Chest x-ray shows chronic changes no acute process. Cardiomegaly. Read both by myself and the radiologist. EKG shows a sinus tachycardia rate of 103. No change from her prior EKG in November. CBC showed a white count 11.4. Hemoglobin 7.5. For the last month that hemoglobin is been running between 7.5 and 8.4. Chemistries are unremarkable gap of 9. BUN of 40 creatinine 2.15. Previously the creatinine was 2.8. Emergency Department Course and Treatment: Elderly female with multiple chronic conditions currently being treated for UTI. She will receive IV fluids. Treatment Plan: Patient is doing well on repeat exam at 03 20 6 AM. She is comfortable being discharged back to the care home. She has not had any melena. She denies any black stool. I spoke to [facility] staff about discharging back to their facility. Disposition: Discharge Impression: Combative at the care home resolved History of UTI currently being treated with IV antibiotics Chronic anemia with a hemoglobin of 7.5 History of renal insufficiency This note was generated with [employer] dictation software. It may contain incorrect words, spelling, and punctuation that were not noted in review of the chart prior to signing ED Disposition - Plan for ED Patient: Chief Complaint: General Illness Referrals: Leroy Marie MD [Primary Care Provider] -
--- NOTE | 2018-01-27 01:58 | ED.DCSUM_ITS ---
- ER Visit Summary Date of Service: 01/27/18 Chief Complaint: Per [facility] facility patient was combative History of Present Illness: The patient is a 62 F history of diabetes, hypertension, anemia, chronic renal insufficiency, obesity, OCD and bipolar disorder. Prior left below the knee amputation. Patient is currently being treated for urinary tract infection. [facility]. Reportedly tonight she has had hallucinations and they want her sent in for evaluation. They will assist and she was combative. Per the squad they said the patient was cooperative the entire time and had stable vital signs. Physical Examination: Well-appearing older female. Vital signs are currently stable except for hypoxia.. She is afebrile. Her pulse ox is reportedly 84% on nasal cannula O2. Consistent with hypoxia. She currently is in no distress. She is awake and alert. She answers questions and follows commands. Currently she is calm and not combative. HEENT exam unremarkable. Moist mucous membranes. Neck nontender. Lungs clear to auscultation bilaterally. Heart regular rhythm rate about 100-105 no murmur. Abdomen is obese but soft. She has excoriations on her abdominal wall. She is moving all 4 extremities. She has a left below the knee amputation. Right heel is well-padded. Neurologically she is awake. She does answer questions and follows commands. All 4 extremities. She does know the month, year and president. Her speech is not slurred. Test Results: Chest x-ray shows chronic changes no acute process. Cardiomegaly. Read both by myself and the radiologist. EKG shows a sinus tachycardia rate of 103. No change from her prior EKG in November. CBC showed a white count 11.4. Hemoglobin 7.5. For the last month that hemoglobin is been running between 7.5 and 8.4. Chemistries are unremarkable gap of 9. BUN of 40 creatinine 2.15. Previously the creatinine was 2.8. Emergency Department Course and Treatment: Elderly female with multiple chronic conditions currently being treated for UTI. She will receive IV fluids. Treatment Plan: Patient is doing well on repeat exam at 03 20 6 AM. She is comfortable [facility]. She has not had any melena. She denies any black stool. I spoke to [facility] staff about discharging back to their facility. Disposition: Discharge Impression: Combative at the [facility] resolved History of UTI currently being treated with IV antibiotics Chronic anemia with a hemoglobin of 7.5 History of renal insufficiency This note was generated with [employer] dictation software. It may contain incorrect words, spelling, and punctuation that were not noted in review of the chart prior to signing ED Disposition - Plan for ED Patient: Chief Complaint: General Illness Referrals: Leroy Marie MD [Primary Care Provider] -
--- NOTE | 2018-01-27 02:00 | RAD_ITS ---
STUDY: X-RAY CHEST REASON FOR EXAM: Female, 62 years old. MS changes, generalized illness, cough TECHNIQUE: Single AP portable view of the chest. 2 images Limited penetration and positioning. There is obesity, the entirety of soft tissue is not imaged. COMPARISON: 12/09/2017 FINDINGS: Continued low lung volume, cardiac enlargement, right mediastinum as on previous examination. Increase of opacification/interstitial prominent in the left lung compared to the previous exam. There is no demonstrated pleural abnormality. Normal size heart. Normal mediastinum and dayana. Normal visualized pulmonary arteries. Normal visualized aortic arch and descending thoracic aorta. The spine and upper abdominal soft tissues are obscured. RAD/Chest 1 View (Portable) IMPRESSION: Infiltrating the left lung possible. Stable cardiomegaly and widened mediastinum, morbid obesity and low lung volume. Electronically Signed: Marie Pozo MD at 2:52 EDT , Service support ,
[2018-01-27 02:14] VITALS: PULSE 103; RESP 18; O2SAT 94
[2018-01-27] MEDS: 0.9% Normal Saline 1,000 ML 1000 ML IV (02:15)
[2018-01-27 02:18] LABS: Anion Gap 9 (5-15); BUN 40 mg/dL (7-18); BUN/Creat Ratio 18.6 RATIO (10-20); Calcium,Total 9.9 mg/dL (8.5-10.1); Chloride 101 mmol/L (98-107); Creatinine, Serum 2.15 mg/dL (0.55-1.02); EST Glomerular Filtration Rate 25 mL/min (>60); Est Glom Filt Rate - Afr Amer 30 mL/min (>60); Estimated Creatinine Clearance 27.06 ml/min; Glucose 185 mg/dL (74-106); Sodium Level 136 mmol/L (136-145)
[2018-01-27 02:21] LABS: Absolute Lymphocyte Count 0.82 X10^3/ul (0.83-4.51); Absolute Neutrophil Count 9.1 X10^3/uL (2.0-7.7); Basophil# 0.05 X10^3/uL; Basophil% 0.4 % (0-1); Eosinophil# 0.42 X10^3/uL; Eosinophils% 3.7 % (0-5); Hematocrit 24.4 % (37-47); Hemoglobin 7.5 g/dl (12.0-15.0); Lymphocyte # 0.82 X10^3/ul (4.0); Lymphocyte % 7.2 % (19-41); Mean Corp Hgb Conc 30.7 g/gl (32-36); Mean Corpuscular Hgb 25.3 pg (27.0-32.0); Mean Corpuscular Volume 82.4 fL (81-99); Mean Platelet Vol. 8.8 fl (6.2-12.0); Monocyte# 0.93 X10^3/uL; Monocyte% 8.2 % (0-10); Neutrophil # 9.11 X10^3/uL (2.7-7.7); Platelet Count 383 K/mm3 (150-450); RBC Distribution Width SD 43.7 fl (35.1-43.9); Red Blood Count 2.96 M/mm3 (4.2-5.4); White Blood Count 11.4 K/mm3 (4.4-11.0)
[2018-01-27 02:22] LABS: POSITIVE COUNT NO; POSITIVE DIFFERENTIAL NO; POSITIVE MORPHOLOGY NO
[2018-01-27 03:21] LABS: Bacteria 0 SEEN /hpf (None Seen); Mucous, Urine 0 SEEN /hpf (<or=2+); Squamous Epithelial Cells - UA 0 SEEN /hpf (5-10)
[2018-01-27 03:30] VITALS: BP 122/62; PULSE 98; RESP 18; O2SAT 98
--- NOTE | 2018-01-27 03:31 | ED.DEP ---
ED Disposition - Plan for ED Patient: Disposition: Home or Assisted Living Chief Complaint: General Illness Referrals: Leroy Marie MD [Primary Care Provider] - 1 Day Additional Instructions: Continue current therapy for her UTI. Follow-up with Dr. Leroy Marie about her anemia. For the last month her hemoglobin has been running between 7.5 and 8.4. Currently it is 7.5
--- NOTE | 2018-01-27 03:39 | ED.RN ---
pt presented with a 22g iv in right wrist. pt is being discharged and will leave with right wrist iv in place.
[2018-01-27 03:47] LABS: Color, Urine Brown (Yellow); Glucose, Dipstick Normal (Normal); Ketone-Dipstick 5 mg/dl (Negative); Leukocyte Esterase-Dipstick 500 /ul (Negative); Nitrite-Dipstick Positive (Negative); Occult Blood-Urine 250 /ul (Negative); Protein-Dipstick 100 mg/dl (Negative); Specific Gravity, Urine 1.025 (1.002-1.030); Urine Bilirubin Dipstick Negative (Negative); Urine Clarity Cloudy (Clear); Urine Urobilinogen 1 mg/dl (Normal)
[2018-01-27 03:48] LABS: Fine Granular Cast- Urine 0-5 SEEN /lpf (0-5); Red Blood Cells-Urine > 100 SEEN /hpf (0-5); White Blood Cells >100 SEEN /hpf (0-5)
[2018-01-27 03:49] LABS: Calcium Oxalate Crystals Ur 1+ /hpf (<or=2+); Hyaline Cast 0-5 SEEN /lpf (0-5)
[2018-01-27 04:20] VITALS: BP 94/68; PULSE 98; RESP 20; O2SAT 96
--- NOTE | 2018-01-27 04:28 | ED.RN ---
Dr. Hood already spoke with danyel about pt's discharge. this rn called danyel to notify then the pt will not be transported until 9am.
[2018-01-27 06:46] VITALS: BP 107/65; PULSE 96; RESP 19; O2SAT 100
[2018-01-27 09:29] VITALS: BP 105/69; PULSE 95; RESP 18; TEMP 36.7; O2SAT 100
== END 2018-01-27 09:30 | disposition skilled nursing facility (03) ==
PROVIDERS: Emergency Provider Emergency Medicine; Family Provider Family Medicine; PCP Family Medicine
DX: N39.0 Urinary tract infection, site not specified (principal); R44.3 Hallucinations, unspecified; R09.02 Hypoxemia; D64.9 Anemia, unspecified; I12.9 Hypertensive chronic kidney disease with stage 1 through stage 4 chronic kidney disease, or unspecified chronic kidney disease; E11.22 Type 2 diabetes mellitus with diabetic chronic kidney disease; N18.9 Chronic kidney disease, unspecified; F42.9 Obsessive-compulsive disorder, unspecified; F31.9 Bipolar disorder, unspecified; E66.9 Obesity, unspecified; Z79.01 Long term (current) use of anticoagulants; Z79.4 Long term (current) use of insulin; Z79.899 Other long term (current) drug therapy; Z89.512 Acquired absence of left leg below knee
CPT/HCPCS: 71045; 80048; 81001; 85025; 93005; 99285; J7030; A4216

== ENCOUNTER → 2018-01-28 08:58 | Outpatient (CLI) | payer MEDICARE, SELFPAY ==
[2018-01-28] VITALS (7 sets, daily range): BP systolic 118–148; BP diastolic 64–87; PULSE 61–106; RESP 16–18; TEMP 35.8–36.9; O2SAT 98–99
[2018-01-28] MEDS: Furosemide 20 MG/2 ML VIAL IV (11:59)
== END ==
PROVIDERS: Family Provider Family Medicine; PCP Family Medicine; Referring Provider Nurse Practitioner Adult Health; Visit Provider Nurse Practitioner Adult Health
DX: D64.9 Anemia, unspecified (principal); N18.9 Chronic kidney disease, unspecified
CPT/HCPCS: 36415; 36430; 86850; 86900; 86920; 86922; J7040; P9016; A4216; J1940

== ENCOUNTER → 2018-04-15 15:02 | Outpatient (CLI) | payer MEDICARE, SELFPAY ==
[2018-04-15 15:07] VITALS: BP 148/94; PULSE 90; RESP 16; TEMP 35.9; O2SAT 93
== END ==
PROVIDERS: Family Provider Family Medicine; PCP Family Medicine; Referring Provider Internal Medicine Hematology & Oncology; Visit Provider Internal Medicine Hematology & Oncology
DX: D50.9 Iron deficiency anemia, unspecified (principal); K90.9 Intestinal malabsorption, unspecified
CPT/HCPCS: 96365; J1756; J7050; A4216

== ENCOUNTER → 2018-04-18 14:45 | Outpatient (CLI) | payer MEDICARE, SELFPAY ==
[2018-04-18 14:56] VITALS: BP 119/90; PULSE 93; RESP 18; TEMP 36.6; O2SAT 98; BMI 47.0
== END ==
PROVIDERS: Family Provider Family Medicine; PCP Family Medicine; Referring Provider Internal Medicine Hematology & Oncology; Visit Provider Internal Medicine Hematology & Oncology
DX: D50.9 Iron deficiency anemia, unspecified (principal); K90.9 Intestinal malabsorption, unspecified
CPT/HCPCS: 96365; J1756; J7050; A4216

== ENCOUNTER → 2018-04-22 14:17 | Outpatient (CLI) | payer MEDICARE, SELFPAY ==
[2018-04-18 14:56] VITALS: BMI 47.0
[2018-04-22 15:07] VITALS: BP 116/59; PULSE 89; RESP 16; TEMP 36.4; O2SAT 96
[2018-04-22 15:08] VITALS: BP 116/59; PULSE 89; RESP 16; TEMP 36.4; O2SAT 96; BMI 47.0
== END ==
PROVIDERS: Family Provider Family Medicine; PCP Family Medicine; Referring Provider Internal Medicine Hematology & Oncology; Visit Provider Internal Medicine Hematology & Oncology
DX: D50.9 Iron deficiency anemia, unspecified (principal); K90.9 Intestinal malabsorption, unspecified
CPT/HCPCS: 96365; J1756; J7050

== ENCOUNTER → 2018-04-25 14:08 | Outpatient (CLI) | payer MEDICARE, SELFPAY ==
[2018-04-22 15:08] VITALS: BMI 47.0
[2018-04-25 14:20] VITALS: BP 114/71; PULSE 93; RESP 16; TEMP 36.2; O2SAT 97; BMI 47.0
== END ==
PROVIDERS: Family Provider Family Medicine; PCP Family Medicine; Referring Provider Internal Medicine Hematology & Oncology; Visit Provider Internal Medicine Hematology & Oncology
DX: D50.9 Iron deficiency anemia, unspecified (principal); K90.9 Intestinal malabsorption, unspecified
CPT/HCPCS: 96365; J1756; J7050; A4216

== ENCOUNTER → 2018-04-29 13:58 | Outpatient (CLI) | payer MEDICARE, SELFPAY ==
[2018-04-25 14:20] VITALS: BMI 47.0
[2018-04-29 14:57] VITALS: BP 113/64; PULSE 93; RESP 18; TEMP 36.8; O2SAT 98; BMI 47.0
== END ==
PROVIDERS: Family Provider Family Medicine; PCP Family Medicine; Referring Provider Internal Medicine Hematology & Oncology; Visit Provider Internal Medicine Hematology & Oncology
DX: D50.9 Iron deficiency anemia, unspecified (principal); K90.9 Intestinal malabsorption, unspecified
CPT/HCPCS: 96365; J1756; J7050; A4216

== ENCOUNTER → 2018-05-23 12:54 | Outpatient (CLI) | payer MEDICARE, SELFPAY ==
[2018-04-29 14:57] VITALS: BMI 47.0
[2018-05-23 13:14] VITALS: BP 123/73; PULSE 88; RESP 16; TEMP 36.1; O2SAT 98; BMI 47.0
== END ==
PROVIDERS: Family Provider Family Medicine; PCP Family Medicine; Referring Provider Internal Medicine Hematology & Oncology; Visit Provider Internal Medicine Hematology & Oncology
DX: D50.9 Iron deficiency anemia, unspecified (principal); N18.4 Chronic kidney disease, stage 4 (severe); K90.9 Intestinal malabsorption, unspecified
CPT/HCPCS: 96365; J1756; J7050; A4216

== ENCOUNTER 2018-05-28 12:42 | Inpatient (IN) | payer MEDICARE, SELFPAY ==
[2018-05-23 13:14] VITALS: BMI 47.0
[2018-05-28] VITALS (8 sets, daily range): BP systolic 93–120; BP diastolic 57–70; PULSE 86–90; RESP 14–22; TEMP 36.3–36.7; O2SAT 99–100; BMI 46.2; BMI 43.8; BMI 43.9
--- NOTE | 2018-05-28 12:58 | EKG12_ITS ---
Test Reason : DYSRHYTHMIA Blood Pressure : / mmHG Vent. Rate : 087 BPM Atrial Rate : 087 BPM P-R Int : 144 ms QRS Dur : 086 ms QT Int : 360 ms P-R-T Axes : 031 014 182 degrees QTc Int : 433 ms Normal sinus rhythm with sinus arrhythmia Nonspecific ST and T wave abnormality Abnormal ECG Confirmed by SANDY SAN, THIEN ([id number]), clinical editor SIVA DOUGLAS ([id number] on 05/29/2018 3:40:38 PM Referred By: Lexii Abdi Confirmed By:THIEN DELGADO MD
[2018-05-28 14:19] LABS: Absolute Lymphocyte Count 1.11 X10^3/ul (0.83-4.51); Absolute Neutrophil Count 7.7 X10^3/uL (2.0-7.7); Basophil# 0.05 X10^3/uL; Basophil% 0.5 % (0-1); Eosinophil# 0.36 X10^3/uL; Eosinophils% 3.6 % (0-5); Hematocrit 28.8 % (37-47); Hemoglobin 8.6 g/dl (12.0-15.0); Lymphocyte # 1.11 X10^3/ul (4.0); Lymphocyte % 10.9 % (19-41); Mean Corp Hgb Conc 29.9 g/gl (32-36); Mean Corpuscular Hgb 24.9 pg (27.0-32.0); Mean Corpuscular Volume 83.2 fL (81-99); Mean Platelet Vol. 8.6 fl (6.2-12.0); Monocyte# 0.94 X10^3/uL; Monocyte% 9.3 % (0-10); Neutrophil # 7.66 X10^3/uL (2.7-7.7); Neutrophil % 75.5 % (47-70); Platelet Count 313 K/mm3 (150-450); RBC Distribution Width CV 16.2 % (11.6-14.6); RBC Distribution Width SD 49.1 fl (35.1-43.9); Red Blood Count 3.46 M/mm3 (4.2-5.4); White Blood Count 10.1 K/mm3 (4.4-11.0)
[2018-05-28] MEDS: 0.9% Normal Saline 1,000 ML 150 ML IV (14:19)
[2018-05-28 14:20] LABS: POSITIVE COUNT NO; POSITIVE DIFFERENTIAL NO; POSITIVE MORPHOLOGY NO
[2018-05-28 14:35] LABS: ALB/GLOB Ratio 0.4 RATIO (0.9-2.4); AST(SGOT) 10 U/L (15-37); Alanine Aminotransfer ALT/SGPT 18 U/L (13-56); Albumin, Serum 1.9 g/dL (3.2-5.0); Alkaline Phosphatase 96 U/L (45-117); Anion Gap 7 (5-15); BUN 43 mg/dL (7-18); BUN/Creat Ratio 15.9 RATIO (10-20); Chloride 106 mmol/L (98-107); EST Glomerular Filtration Rate 19 mL/min (>60); Est Glom Filt Rate - Afr Amer 23 mL/min (>60); Estimated Creatinine Clearance 21.55 ml/min; Globulin 4.5 g/dL (2.2-4.2); Glucose 69 mg/dL (74-106); Lipase 36 U/L (73-393); Potassium 3.9 mmol/L (3.5-5.1); Protein, Total 6.4 g/dL (6.4-8.2); Sodium Level 140 mmol/L (136-145)
[2018-05-28 14:41] LABS: Lactic Acid 0.7 mmol/L (0.4-2.0)
[2018-05-28 15:06] LABS: Mucous, Urine 0 SEEN /hpf (<or=2+); Red Blood Cells-Urine 0 SEEN /hpf (0-5); Squamous Epithelial Cells - UA 0 SEEN /hpf (5-10)
[2018-05-28 15:08] LABS: Color, Urine Yellow (Yellow); Glucose, Dipstick Normal (Normal); Ketone-Dipstick Negative (Negative); Leukocyte Esterase-Dipstick 500 /ul (Negative); Nitrite-Dipstick Negative (Negative); Occult Blood-Urine 150 /ul (Negative); Protein-Dipstick 30 mg/dl (Negative); Specific Gravity, Urine 1.015 (1.002-1.030); Urine Bilirubin Dipstick Negative (Negative); Urine Clarity Cloudy (Clear); Urine Urobilinogen Normal (Normal)
[2018-05-28 15:14] LABS: White Blood Cells 50-100 SEEN /hpf (0-5)
[2018-05-28 15:15] LABS: Amorphous Sediment 3+; Bacteria 2+ /hpf (None Seen)
--- NOTE | 2018-05-28 15:50 | ED.VISSUMM ---
- ER Visit Summary Date of Service: 05/28/18 Chief Complaint: [Nausea vomiting and diarrhea] History of Present Illness: The patient is a 62 F [[facility] with complaint of vomiting and diarrhea for last 3 days. Patient also complaining of feeling lightheaded and dizzy. Patient does have a history of anemia however she missed her last iron infusion. Patient has an indwelling Shay catheter. Patient denies any fevers. She denies any abdominal pain. She denies any chest pain or shortness of breath. Patient has a history of diabetes, hypertension, high cholesterol, UTIs and sepsis, bipolar disorder, and chronic kidney disease.] Physical Examination: [HEENT-PERRLA, EOMI. Cranial nerves II through XII grossly intact. TMs clear. Mucous membranes dry. No adenopathy. Cardiovascular-regular rate and rhythm without murmur or ectopy Lungs-clear to auscultation, chest wall stable without crepitus or subcu emphysema Abdomen-normoactive bowel sounds, soft, nontender, no rebound or rigidity, no peritoneal signs. Evaluation of the skin on the abdomen reveals multiple excoriated areas of skin were patient has been scratching. No significant cellulitis noted. Extremities-intact ?4, normal range of motion, normal pulses, atraumatic] Test Results: [EKG obtained on arrival shows sinus rhythm with a ventricular rate of [address] changes noted. When compared with prior EKG from December 2017 no significant changes were noted. CBC with differential obtained showed a white count of 10.1, hemoglobin 8.6, hematocrit 29, platelets 313. History is were unremarkable. BUN was 43 and creatinine 2.7. Troponin was less than 0.015. Urinalysis was positive for 500 leukocyte esterase with +3 bacteria and 50-100 WBCs.] Emergency Department Course and Treatment: Culture of the urine was sent and patient was started on ciprofloxacin IV as she has allergies to cephalosporins. Patient was given antiemetics and a liter normal same fluid bolus] Treatment Plan: [Admit for IV fluids antiemetics and antibiotics.] Disposition: [Admit] Impression: [Gastroenteritis UTI Dehydration] This note was generated with [employer] dictation software. It may contain incorrect words, spelling, and punctuation that were not noted in review of the chart prior to signing ED Disposition - Plan for ED Patient: Referrals: Leroy Marie MD [Primary Care Provider] -
--- NOTE | 2018-05-28 15:53 | ED.RN ---
PT WITH MULTIPLE ABDOMINAL WOUNDS, FROM PICKING AT HER SKIN. WOUND ON PELVIS FROM DRIANED ABSCESS. FOUL SMELLING SKIN.
--- NOTE | 2018-05-28 15:55 | ED.DCSUM_ITS ---
- ER Visit Summary Date of Service: 05/28/18 Chief Complaint: [Nausea vomiting and diarrhea] History of Present Illness: The patient is a 62 F [[facility] with complaint of vomiting and diarrhea for last 3 days. Patient also complaining of feeling lightheaded and dizzy. Patient does have a history of anemia however she missed her last iron infusion. Patient has an indwelling Shay catheter. Patient denies any fevers. She denies any abdominal pain. She denies any chest pain or shortness of breath. Patient has a history of diabetes, hypertension, high cholesterol, UTIs and sepsis, bipolar disorder, and chronic kidney disease.] Physical Examination: [HEENT-PERRLA, EOMI. Cranial nerves II through XII grossly intact. TMs clear. Mucous membranes dry. No adenopathy. Cardiovascular-regular rate and rhythm without murmur or ectopy Lungs-clear to auscultation, chest wall stable without crepitus or subcu emphysema Abdomen-normoactive bowel sounds, soft, nontender, no rebound or rigidity, no peritoneal signs. Evaluation of the skin on the abdomen reveals multiple excoriated areas of skin were patient has been scratching. No significant cellulitis noted. Extremities-intact ?4, normal range of motion, normal pulses, atraumatic] Test Results: [EKG obtained on arrival shows sinus rhythm with a ventricular rate of [address] changes noted. When compared with prior EKG from December 2017 no significant changes were noted. CBC with differential obtained showed a white count of 10.1, hemoglobin 8.6, hematocrit 29, platelets 313. History is were unremarkable. BUN was 43 and creatinine 2.7. Troponin was less than 0.015. Urinalysis was positive for 500 leukocyte esterase with +3 bacteria and 50-100 WBCs.] Emergency Department Course and Treatment: Culture of the urine was sent and patient was started on ciprofloxacin IV as she has allergies to cephalosporins. Patient was given antiemetics and a liter normal same fluid bolus] Treatment Plan: [Admit for IV fluids antiemetics and antibiotics.] Disposition: [Admit] Impression: [Gastroenteritis UTI Dehydration] This note was generated with [employer] dictation software. It may contain incorrect words, spelling, and punctuation that were not noted in review of the chart prior to signing ED Disposition - Plan for ED Patient: Referrals: Leroy Marie MD [Primary Care Provider] -
[2018-05-28] MEDS: Ciprofloxacin 400 MG/200 ML BAG 200 MG IV (16:04)
--- NOTE | 2018-05-28 16:37 | PCM.HP.STD ---
Problem List (1) Gastroenteritis Status: Acute (2) UTI (urinary tract infection) Status: Acute (3) Anxiety Status: Chronic (4) Bipolar disorder Status: Chronic (5) CKD stage 3 secondary to diabetes Status: Chronic (6) HLD (hyperlipidemia) Status: Chronic (7) HTN (hypertension) Status: Chronic (8) History of self-harm Status: Chronic Comment: scratching and picking (9) History of tobacco abuse Status: Chronic (10) Iron deficiency anemia Status: Chronic (11) Morbid obesity Status: Chronic Comment: bmi 46 (12) Personality disorder Status: Chronic (13) Self neglect Status: Chronic (14) Type 2 diabetes mellitus with diabetic polyneuropathy Status: Chronic (15) Chronic respiratory failure with hypoxia Status: Chronic History of Present Illness Date of Admission: 05/28/18 Chief Complaint: N/V/D/Adbominal pain The patient is a 62 year old F with pmhx of multidrug resistant UTI, DMt2, chronic iron def. 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 She was recently here for a UTI at that time with multiple resistances, she was treated with Unasyn per ID with transition to augmentin at [place]. She has had N/V/D multiple times daily since saturday. She feels vertigo described as the room spinning. She has a chronic catheter as noted above, she cannot remember when it was last changed. She does appear to have a UTI per her UA also suprapubic abdominal pain. No fevers or chills. No cough or SOB. On chronic O2 with no increased demand. She was given cipro in the ER however noting past resistance to it will switch to unasyn at admission and wait for cultures. [] Past Medical History Past Medical History (Chronic Problems): Chronic Problems Iron deficiency anemia (Chronic) Chronic respiratory failure with hypoxia (Chronic) Type 2 diabetes mellitus with diabetic polyneuropathy (Chronic) History of tobacco abuse (Chronic) HLD (hyperlipidemia) (Chronic) HTN (hypertension) (Chronic) Morbid obesity (Chronic) bmi 46 Noncompliance (Chronic) with diabetic therapy Personality disorder (Chronic) History of self-harm (Chronic) scratching and picking Self neglect (Chronic) Type 2 diabetes mellitus (Chronic) Bipolar disorder (Chronic) Anxiety (Chronic) 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 2 diabetes mellitus with diabetic polyneuropathy (Chronic) Allergies adhesive Allergy (Verified 05/28/18 12:50) Rash cefadroxil hydrate [From Duricef] Allergy (Verified 05/28/18 12:50) Rash cephalexin monohydrate [From Keflex] Allergy (Verified 05/28/18 12:50) Rash venom-honey bee [bee venom (honey bee)] Allergy (Verified 05/28/18 12:50) Rash Home Medications: Ambulatory Orders Medication Instructions Recorded Apixaban [Eliquis] 5 mg PO BID 05/28/18 Ascorbic Acid [Vitamin C] 500 mg PO BID 05/28/18 Bisacodyl [Biscolax] 10 mg RC DAILY PRN PRN 05/28/18 Calcium Carbonate [Tums] 500 mg PO TIDCM 05/28/18 Calcium Carbonate/Vitamin D3 1 each PO DAILY 05/28/18 [Calcium 600-Vit D3 200 Tablet] Cholecalciferol (Vitamin D3) 2,000 unit PO DAILY 05/28/18 [Vitamin D3] Cilostazol [Pletal] 50 mg PO BIDAC 05/28/18 Ferrous Sulfate 325 mg PO BID 05/28/18 Hydroxyzine Pamoate [Vistaril] 25 mg PO DAILY 05/28/18 Hydroxyzine Pamoate [Vistaril] 50 mg PO QHS 05/28/18 Insulin Glargine [Lantus (BKC)] 30 units SC DAILY 05/28/18 Insulin Glargine [Lantus (BKC)] 30 units SC QHS 05/28/18 Lactobacillus Acidophilus 1 each PO DAILY 05/28/18 [Acidophilus] Multivitamin [Multivitamins] 1 each PO DAILY 05/28/18 Nystatin Powder [Mycostatin Powder] 1 applic TOPICAL BID 05/28/18 Paroxetine HCl [Paxil] 40 mg PO DAILY 05/28/18 Pravastatin [Pravachol] 10 mg PO QHS 05/28/18 Pyridoxine HCl [Vitamin B-6] 100 mg PO DAILY 05/28/18 Quetiapine Fumarate [Seroquel] 200 mg PO DAILY 05/28/18 Venlafaxine XR [Effexor Xr] 225 mg PO DAILY 05/28/18 Surgical History: no surgical history, - - foot surgeries, right great toe, partial 2nd, 3rd toe amputation, left below the knee amputation Psychiatric History: No pertinent psych hx APPLE CHECKER History: No pertinent APPLE CHECKER history Smoking Status: Former smoker - *Family History Maternal History Items: Diabetes, Heart Disease, Hypertension Paternal History Items: - - epilepsy Sibling History Items: Diabetes Review of Systems Constitutional: Denies: Chills, Fever, Weight Change HEENT: Denies: Head Aches, Sinus Congestion, Sinus Drainage Cardiovascular: Denies: Chest Pain, Palpitations Respiratory: Denies: Cough, Shortness of breath at rest, Sputum production Gastrointestinal: Reports: Abdominal Pain, Diarrhea, Nausea, Vomiting Genitourinary: Denies: Dysuria Musculoskeletal: Denies: Joint Pain, Joint Tenderness Skin: Denies: Rash, Wounds Neurological: Denies: Numbness, Tingling, Focal weakness Psychiatric: Denies: Anxiety, Depression, Homicidal Ideations, Suicidal Ideations Hematologic/ Lymphatic: Denies: Easy Bruising, Easy Bleeding VTE Information - Inpt Only VTE Present on Admission: No VTE Mechan Device Prophylaxis: None VTE Pharm Prophylaxis ordered?: Yes Patient Problems: Active and Suspected Problems Gastroenteritis (Acute) - Physical Exam General: Alert, Oriented x3, Cooperative HEENT: Atraumatic, PERRLA, EOMI, Normocephalic Neck: Supple, No JVD, Negative Carotid Bruits Lungs: Clear to auscultation, Normal air movement Cardiovascular: Regular rate, No murmurs Abdomen: Bowel Sounds Present, Soft, Obese, Tender - suprapubic Extremities: No edema, Capillary Refill Less than 3 Seconds Skin: - - chronic wounds noted. Musculoskeletal: No Tenderness to Palpation of Joints or Extremities Neurological: Cranial nerves II-XII grossly intact Psych/Mental Status: Normal Affect, Appropriate Vital Signs Temp Pulse Resp BP Pulse Ox 97.9 F 89 22 H 118/69 99 05/28/18 16:04 05/28/18 16:04 05/28/18 16:04 05/28/18 16:04 05/28/18 16:04 Oxygen Flow Rate (L/min) 3 Oxygen Delivery Method Room Air Weight: 294 lb 15.656 oz Body Mass Index (BMI) 46.2 Microbiology Past 72 Hours 05/28/18 13:30 C. difficile DNA Amplification - Final Stool Laboratory Tests Past 24 Hrs 05/28/18 05/28/18 05/28/18 14:07 14:07 14:07 WBC 10.1 RBC 3.46 L Hgb 8.6 L Hct 28.8 L MCV 83.2 MCH 24.9 L MCHC 29.9 L RDW 16.2 H RDW Differential 49.1 H Plt Count 313 MPV 8.6 Immature Gran % (Auto) 0.200 Neut % (Auto) 75.5 H Lymph % (Auto) 10.9 L [place] % (Auto) 9.3 Eos % (Auto) 3.6 Baso % (Auto) 0.5 Absolute Neuts (auto) 7.7 Absolute Lymphs (auto) 1.11 Total Counted Not Reportable Sodium 140 Potassium 3.9 Chloride 106 Carbon Dioxide 27.0 Anion Gap 7 BUN 43 H Creatinine 2.70 H Estim Creat Clear Calc 21.55 Est GFR (MDRD) Af Amer 23 L Est GFR (MDRD) Non-Af 19 L BUN/Creatinine Ratio 15.9 Glucose 69 L Lactic Acid 0.7 Calcium 10.0 Total Bilirubin 0.30 AST 10 L ALT 18 Alkaline Phosphatase 96 Troponin I < 0.015 Total Protein 6.4 Albumin 1.9 L Globulin 4.5 H Albumin/Globulin Ratio 0.4 L Lipase 36 L Urine Color Urine Clarity Urine pH Ur Specific [place] Urine Protein Urine Glucose (UA) Urine Ketones Urine Occult Blood Urine Nitrite Urine Bilirubin Urine Urobilinogen Ur Leukocyte Esterase Urine RBC Urine WBC Ur Squamous Epith Cells Amorphous Sediment Urine Bacteria Urine Mucus 05/28/18 14:55 WBC RBC Hgb Hct MCV MCH MCHC RDW RDW Differential Plt Count MPV Immature Gran % (Auto) Neut % (Auto) Lymph % (Auto) [place] % (Auto) Eos % (Auto) Baso % (Auto) Absolute Neuts (auto) Absolute Lymphs (auto) Total Counted Sodium Potassium Chloride Carbon Dioxide Anion Gap BUN Creatinine Estim Creat Clear Calc Est GFR (MDRD) Af Amer Est GFR (MDRD) Non-Af BUN/Creatinine Ratio Glucose Lactic Acid Calcium Total Bilirubin AST ALT Alkaline Phosphatase Troponin I Total Protein Albumin Globulin Albumin/Globulin Ratio Lipase Urine Color Yellow Urine Clarity Cloudy Urine pH 8.0 Ur Specific [place] 1.015 Urine Protein 30 H Urine Glucose (UA) Normal Urine Ketones Negative Urine Occult Blood 150 H Urine Nitrite Negative Urine Bilirubin Negative Urine Urobilinogen Normal Ur Leukocyte Esterase 500 H Urine RBC 0 SEEN Urine WBC 50-100 SEEN Ur Squamous Epith Cells 0 SEEN Amorphous Sediment 3+ Urine Bacteria 2+ Urine Mucus 0 SEEN Assessment/Plan All Active Problems Gastroenteritis (Acute) Anemia in chronic kidney disease (Acute) Osteomyelitis of foot, right, acute (Acute) UTI (urinary tract infection) (Acute) Sepsis (Acute) Neutrophilic leukocytosis (Acute) Cellulitis of right foot (Acute) Diabetic ulcer of right foot (Acute) MSSA (methicillin susceptible Staphylococcus aureus) (Resolved) Mycotic cystitis (Resolved) Osteomyelitis (Resolved) 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 Acute gastroenteritis - hx cdiff - supportive care, send stool for cdiff check is negative, pending enteric panel. IV fluids. 2. Acute CAUTI - + UA and chronic catheter for chronic incontinence. Change catheter. Provide unasyn, as noted prior cultures enterococcus faecalis resistant to cipro susceptible to unasyn, and wait for repeat cultures. 3. DMt2 with Morbid Obesity - dietary eval, SSI + lantus BID 4. Chronic wounds 2/2 picking / self harm - wound care consult 5. Bipolar disorder - home meds 6. PVD - pletal 7. Severe debility - bedbound permanenent SNF member. PTOT. 8. Chronic anemia - iron def. On outpatient venofer infusions. DVT ppx: yony PATTERSON planning : return to [facility] This patient was seen by Adolfo Duong PA-C under the supervision of Doctor Trinidad.
--- NOTE | 2018-05-28 16:50 | ED.RN ---
[facility] NOTIFIED OF PT ADMISSION.
--- NOTE | 2018-05-28 17:17 | CASEMGMT ---
RN CM Assessment Introduced role of RN CM to patient. Patient is alert, oriented but forgetful and able to participate in RN CM Assessment. Care providers, pharmacy, and demographics verified. Presentation: Admitted for UTI, Gastroenteritis. CC: N/V/D, Abd Pain. PCP: Dr Leroy Pimentel, LIME VAT TENDER- Milli Lakhani Preferred Pharmacy: Gets meds filled at facility, Cannot recall pharmacy name they use. [facility] [facility] Prescription Benefit: Yes LNOK: Allie Delgado Living Arrangements: Lives at [facility] for the past couple years. Bed Bound and Total Care. Transportation: Ambulance DME: Bedbound DC PLAN: Back to [facility]. No anticipated additional needs identified. Luisito Desai RNCM
[2018-05-28 17:45] LABS: Bedside Glucose 59 mg/dL (70-110)
[2018-05-28 20:26] LABS: Bedside Glucose 171 mg/dL (70-110)
[2018-05-28] MEDS: APIXABAN 5 MG TABLET PO (21:33)
[2018-05-28 21:50] LABS: Bedside Glucose 154 mg/dL (70-110)
[2018-05-28] MEDS: 0.9% Normal Saline 1,000 ML 125 ML IV (22:36)
--- NOTE | 2018-05-29 02:05 | NURSING ---
Pt. refusing to have chronic Shay Catheter changed. This nurse spoke to Franki the pt's nurse at [facility] and he said the last documented Shay Cath change was 05/08/2018.
[2018-05-29] MEDS: Ondansetron ODT 4 MG Tablet PO (03:14)
[2018-05-29 03:19] VITALS: BP 109/61; PULSE 89; RESP 18; TEMP 36.6; O2SAT 98
[2018-05-29 03:51] LABS: Bedside Glucose 77 mg/dL (70-110)
[2018-05-29 03:51] LABS: Bedside Glucose 58 mg/dL (70-110)
[2018-05-29 03:51] LABS: Bedside Glucose 102 mg/dL (70-110)
[2018-05-29] MEDS: 0.9% Normal Saline 1,000 ML 125 ML IV (06:27)
[2018-05-29 06:37] LABS: Absolute Lymphocyte Count 0.89 X10^3/ul (0.83-4.51); Basophil# 0.05 X10^3/uL; Basophil% 0.5 % (0-1); Eosinophil# 0.36 X10^3/uL; Eosinophils% 3.9 % (0-5); Hematocrit 29.3 % (37-47); Hemoglobin 8.5 g/dl (12.0-15.0); Lymphocyte # 0.89 X10^3/ul (4.0); Lymphocyte % 9.5 % (19-41); Mean Corpuscular Hgb 24.7 pg (27.0-32.0); Mean Corpuscular Volume 85.2 fL (81-99); Mean Platelet Vol. 9.3 fl (6.2-12.0); Monocyte# 1.02 X10^3/uL; Monocyte% 10.9 % (0-10); Platelet Count 366 K/mm3 (150-450); RBC Distribution Width SD 48.2 fl (35.1-43.9); Red Blood Count 3.44 M/mm3 (4.2-5.4); White Blood Count 9.3 K/mm3 (4.4-11.0)
[2018-05-29 06:38] LABS: POSITIVE COUNT NO; POSITIVE DIFFERENTIAL NO; POSITIVE MORPHOLOGY NO
[2018-05-29 06:46] LABS: Bedside Glucose 70 mg/dL (70-110)
[2018-05-29 07:07] LABS: Anion Gap 6 (5-15); BUN 43 mg/dL (7-18); BUN/Creat Ratio 16.8 RATIO (10-20); Calcium,Total 9.4 mg/dL (8.5-10.1); Chloride 108 mmol/L (98-107); Creatinine, Serum 2.56 mg/dL (0.55-1.02); EST Glomerular Filtration Rate 20 mL/min (>60); Est Glom Filt Rate - Afr Amer 25 mL/min (>60); Estimated Creatinine Clearance 22.73 ml/min; Glucose 63 mg/dL (74-106); Potassium 4.2 mmol/L (3.5-5.1); Sodium Level 142 mmol/L (136-145)
[2018-05-29 08:00] VITALS: BP 113/68; PULSE 90; RESP 16; TEMP 36.4; O2SAT 99
[2018-05-29] MEDS: APIXABAN 5 MG TABLET PO ×2 (09:07→22:11)
[2018-05-29] MEDS: QUEtiapine 100 MG Tablet 200 MG PO (09:07)
[2018-05-29] MEDS: Paroxetine 20 MG Tablet 40 MG PO (09:07)
[2018-05-29] MEDS: Venlafaxine XR 75 MG Capsule 225 MG PO (09:07)
[2018-05-29] MEDS: hydrOXYzine PAM 25 MG Capsule PO (09:08)
--- NOTE | 2018-05-29 09:41 | CASEMGMT ---
SW called [facility], spoke w/Salome. She confirms pt is a mailing jogger resident, will let this SW know if precert is needed prior to pt returning. STEPHAN faxed clinical updates to [facility]. RAMY Montelongo, CHAMPION OF SUSTAINABLE DESIGN
--- NOTE | 2018-05-29 09:42 | CASEMGMT ---
Addendum entered by Taniya Miranda 05/29/18 09:55: Salome at [facility] faxed over POA for Health Care form for pt, that included the missing page stating pt's sister Trish is POA. SW placed in paper chart to be scanned in at discharge. RAMY Montelongo, HOTEL NIGHT AUDITOR Original Note: LW/POA for finances and POA for medical all in the echart. SW printed, one page is missing for medical POA that states pt's sister as POA--pt had reported to admitting RN her sister is POA. SW called [facility] and asked for them to fax over any documentation they may have in their charts for medical POA. SW place LW and financial POA in e-chart. RAMY Montelongo, HOTEL NIGHT AUDITOR
--- NOTE | 2018-05-29 09:54 | NURSING ---
wound photo: abdomen
--- NOTE | 2018-05-29 09:55 | NURSING ---
wound photo: abdomen
--- NOTE | 2018-05-29 10:01 | PN_ITS ---
Patient Problems: Active and Suspected Problems Gastroenteritis (Acute) Subjective: Unasyn day #2 Flagyl day #2 The patient is a 62-year-old female with a past medical history of chronic renal failure stage III, hyperlipidemia, iron deficiency anemia, positive history of Clostridium difficile colitis, tobacco dependence, morbid obesity, history of self-inflicted injuries, diabetic peripheral polyneuropathy, hypertension, chronic debility, self-neglect, diabetes mellitus type 2, personality disorder and anxiety who presented to the emergency department at [facility] on 05/28/2018 complaining of nausea/vomiting/diarrhea with abdominal and suprapubic pain. Vital signs of presentation to the emergency room were temperature 97.7, pulse rate 90, blood pressure 105/66, respiratory rate 14 and she was 100% saturated on a 3 L nasal cannula. White blood cell count was 10.1 with 75.5% neutrophils. Hemoglobin is 8.6 with an MCV of 83.2 and an RDW of 16.2. Electrolytes are unremarkable and the BUN is 43 with a creatinine of 2.7 which is within her baseline. The estimated creatinine clearance is 21.55 which now classifies her stage IV chronic renal failure. Lactic acid was 0.7. LFTs were unremarkable. Albumin is low at 1.9. UA had 50-100 WBCs per high-power field with 2+ bacteria...catheterized specimen. Clostridium difficile was negative. She was admitted to the hospital with a CAUTI and started on Unasyn. The salgado was changed. ] All events of the past 24 hours of been reviewed. She has been afebrile since admission. Vital signs are stable. All lab was personally reviewed. The white blood cell count today is 9.3 with 75% neutrophils. Hemoglobin is stable at 8.5 and the platelets are within normal limits. The creatinine today is 2.56, down from 2.7 at admission. Urine culture is pending. Blood sugars have been on the low side since admission. - Physical Exam General: Alert, Oriented x3, Cooperative, No apparent distress HEENT: Atraumatic, PERRLA Oral: Dry Mucosa Lungs: Clear to auscultation - anterior and lateral Cardiovascular: Regular rate, Regular Rhythm, Normal S1, Normal S2 Abdomen: Soft, Non Tender, Non-Distended, Obese, - - non-healing wounds of the abdominal wall......greenish, malodorous DC, no periowund erythema, no purulent DC....suspect pseudomonas colonization Extremities: No cyanosis Skin: Ulcer/ Wound - see the pictures of the abdominal wall wounds in [place] Lauren note Neurological: Cranial nerves II-XII grossly intact, Neuro grossly intact Psych/Mental Status: Normal Affect, Appropriate Vital Signs Temp Pulse Resp BP Pulse Ox 98 F 89 18 109/61 98 05/29/18 03:19 05/29/18 03:19 05/29/18 03:19 05/29/18 03:19 05/29/18 03:19 Oxygen Flow Rate (L/min) 2 Oxygen Delivery Method Nasal Cannula Weight: 279 lb 15.793 oz Body Mass Index (BMI) 43.8 Intake and Output for Last 24 Hours 05/27/18 05/28/18 05/29/18 23:59 23:59 23:59 Intake Total 365 / 365 2353 / 2353 Output Total 650 / 650 Balance 365 / 365 1703 / 1703 Microbiology Past 72 Hours 05/28/18 13:30 C. difficile DNA Amplification - Final Stool Laboratory Tests Past 24 Hrs 05/28/18 05/28/18 05/28/18 14:07 14:07 14:07 WBC 10.1 RBC 3.46 L Hgb 8.6 L Hct 28.8 L MCV 83.2 MCH 24.9 L MCHC 29.9 L RDW 16.2 H RDW Differential 49.1 H Plt Count 313 MPV 8.6 Immature Gran % (Auto) 0.200 Neut % (Auto) 75.5 H Lymph % (Auto) 10.9 L [place] % (Auto) 9.3 Eos % (Auto) 3.6 Baso % (Auto) 0.5 Absolute Neuts (auto) 7.7 Absolute Lymphs (auto) 1.11 Total Counted Not Reportable Sodium 140 Potassium 3.9 Chloride 106 Carbon Dioxide 27.0 Anion Gap 7 BUN 43 H Creatinine 2.70 H Estim Creat Clear Calc 21.55 Est GFR (MDRD) Af Amer 23 L Est GFR (MDRD) Non-Af 19 L BUN/Creatinine Ratio 15.9 Glucose 69 L Lactic Acid 0.7 Calcium 10.0 Total Bilirubin 0.30 AST 10 L ALT 18 Alkaline Phosphatase 96 Troponin I < 0.015 Total Protein 6.4 Albumin 1.9 L Globulin 4.5 H Albumin/Globulin Ratio 0.4 L Lipase 36 L Urine Color Urine Clarity Urine pH Ur Specific [place] Urine Protein Urine Glucose (UA) Urine Ketones Urine Occult Blood Urine Nitrite Urine Bilirubin Urine Urobilinogen Ur Leukocyte Esterase Urine RBC Urine WBC Ur Squamous Epith Cells Amorphous Sediment Urine Bacteria Urine Mucus 05/28/18 05/29/18 05/29/18 14:55 06:10 06:10 WBC 9.3 RBC 3.44 L Hgb 8.5 L Hct 29.3 L MCV 85.2 MCH 24.7 L MCHC 29.0 L RDW 16.0 H RDW Differential 48.2 H Plt Count 366 MPV 9.3 Immature Gran % (Auto) 0.200 Neut % (Auto) 75.0 H Lymph % (Auto) 9.5 L [place] % (Auto) 10.9 H Eos % (Auto) 3.9 Baso % (Auto) 0.5 Absolute Neuts (auto) 7.0 Absolute Lymphs (auto) 0.89 Total Counted Not Reportable Sodium 142 Potassium 4.2 Chloride 108 H Carbon Dioxide 28.0 Anion Gap 6 BUN 43 H Creatinine 2.56 H Estim Creat Clear Calc 22.73 Est GFR (MDRD) Af Amer 25 L Est GFR (MDRD) Non-Af 20 L BUN/Creatinine Ratio 16.8 Glucose 63 L Lactic Acid Calcium 9.4 Total Bilirubin AST ALT Alkaline Phosphatase Troponin I Total Protein Albumin Globulin Albumin/Globulin Ratio Lipase Urine Color Yellow Urine Clarity Cloudy Urine pH 8.0 Ur Specific [place] 1.015 Urine Protein 30 H Urine Glucose (UA) Normal Urine Ketones Negative Urine Occult Blood 150 H Urine Nitrite Negative Urine Bilirubin Negative Urine Urobilinogen Normal Ur Leukocyte Esterase 500 H Urine RBC 0 SEEN Urine WBC 50-100 SEEN Ur Squamous Epith Cells 0 SEEN Amorphous Sediment 3+ Urine Bacteria 2+ Urine Mucus 0 SEEN POC Glucose 05/29/18 05/29/18 05/29/18 06:31 03:46 03:27 POC Glucose 70 102 77 05/29/18 05/28/18 05/28/18 03:10 21:35 20:08 POC Glucose 58 L 154 H 171 H 05/28/18 17:38 POC Glucose 59 L Medical Necessity - Tobacco Use Smoking Status: Former smoker Tobacco Use: Cigarettes Assessment/Plan All Active Problems Gastroenteritis (Acute) Anemia in chronic kidney disease (Acute) Osteomyelitis of foot, right, acute (Acute) UTI (urinary tract infection) (Acute) Sepsis (Acute) Neutrophilic leukocytosis (Acute) Cellulitis of right foot (Acute) Diabetic ulcer of right foot (Acute) MSSA (methicillin susceptible Staphylococcus aureus) (Resolved) Mycotic cystitis (Resolved) Osteomyelitis (Resolved) Osteomyelitis due to secondary diabetes (Resolved) Impressions 1. complicated UTI - chronic salgado 2. non-healing wounds of the abdominal wall 3. morbid obesity 4. Stage 4 CRF 5. HTN 6. Diabetes mellitus type 2 7. Hyperlipidemia 8. Self-inflicted injury 9. History of iron deficiency anemia -has required iron infusions in the past and the MCV is down to 83 and the RDW is increasing. 10. Anxiety/depression/bipolar disorder/personality disorder 11. Nausea and diarrhea-positive history of Clostridium difficile but the C. difficile on the stool is negative. Enteric pathogen panel is pending. Discontinue Flagyl-the C. difficile is negative Change the Lantus to 22 units subcu twice daily and continue the sliding insulin scale. Check a magnesium, phosphorus, hemoglobin A1c Continue Unasyn pending results of the urine culture No blood cultures were drawn at admission. Enteric pathogen panel is pending. Wound culture and PCR for MRSA Start quarter percent acetic acid wet-to-dry dressings twice daily Start D5 half-normal saline at 75 cc/h Recheck lab in the a.m. Iron sucrose 200 mg IV today. Yunier BID MV daily and Vitamin C for wound healing Code Visit Inpatient E&M: [id number] [facility] Hosp L3
[2018-05-29 10:17] LABS: Magnesium 2.2 mg/dL (1.6-2.6); Phosphorus 3.8 mg/dL (2.5-4.9)
[2018-05-29] MEDS: Dext 5%-0.45% NS 1,000 ML 100 ML IV ×2 (11:52→22:12)
[2018-05-29 12:00] LABS: Bedside Glucose 72 mg/dL (70-110)
[2018-05-29] MEDS: Glucerna Shake 120 ML LIQUID PO ×2 (14:54→17:50)
[2018-05-29 14:55] VITALS: BP 89/47; PULSE 80; RESP 16; TEMP 36.3; O2SAT 99
--- NOTE | 2018-05-29 16:07 | CHAPLAIN ---
patient is sleeping and this senior portfolio manager did not waken her
[2018-05-29 16:45] VITALS: BP 95/58
[2018-05-29 16:51] LABS: Bedside Glucose 120 mg/dL (70-110)
[2018-05-29 17:07] LABS: M R Staph aureus DNA By PCR Negative (Negative); Probe Check PASS; Specimen Processing Control PASS; Staph aureus DNA By PCR NEGATIVE (Negative)
[2018-05-29] MEDS: Cilostazol 50 MG Tablet PO (17:50)
[2018-05-29] MEDS: Ferrous Sulfate 325 MG Tablet PO (17:50)
[2018-05-29 22:04] VITALS: BP 95/52; PULSE 89; RESP 16; TEMP 36.6; O2SAT 98
[2018-05-29] MEDS: hydrOXYzine PAM 25 MG Capsule 50 MG PO (22:11)
[2018-05-29] MEDS: Ascorbic Acid 500 MG Tablet PO (22:11)
[2018-05-29] MEDS: Pravastatin 20 MG Tablet 10 MG PO (22:11)
[2018-05-29] MEDS: ACETIC ACID 1,000 ML IRRIG.SOLN IR (22:13)
[2018-05-29 22:40] LABS: Bedside Glucose 143 mg/dL (70-110)
[2018-05-30 03:46] VITALS: BP 91/59; PULSE 86; RESP 16; TEMP 36.4; O2SAT 100
[2018-05-30 05:40] LABS: Hematocrit 30.1 % (37-47); Hemoglobin 8.9 g/dl (12.0-15.0); Mean Corp Hgb Conc 29.6 g/gl (32-36); Mean Corpuscular Volume 84.6 fL (81-99); Mean Platelet Vol. 9.3 fl (6.2-12.0); Platelet Count 354 K/mm3 (150-450); RBC Distribution Width CV 16.1 % (11.6-14.6); RBC Distribution Width SD 48.2 fl (35.1-43.9); Red Blood Count 3.56 M/mm3 (4.2-5.4); White Blood Count 7.1 K/mm3 (4.4-11.0)
[2018-05-30 05:44] LABS: Anion Gap 8 (5-15); BUN 47 mg/dL (7-18); BUN/Creat Ratio 17.6 RATIO (10-20); Calcium,Total 9.1 mg/dL (8.5-10.1); Chloride 109 mmol/L (98-107); Creatinine, Serum 2.67 mg/dL (0.55-1.02); EST Glomerular Filtration Rate 19 mL/min (>60); Est Glom Filt Rate - Afr Amer 23 mL/min (>60); Estimated Creatinine Clearance 21.79 ml/min; Glucose 72 mg/dL (74-106); Magnesium 2.1 mg/dL (1.6-2.6); Phosphorus 3.6 mg/dL (2.5-4.9); Potassium 4.1 mmol/L (3.5-5.1); Sodium Level 140 mmol/L (136-145)
[2018-05-30 05:55] LABS: Scan Indicated on CBC? Y/N NO
[2018-05-30] MEDS: Cilostazol 50 MG Tablet PO ×2 (06:31→17:16)
[2018-05-30] MEDS: Dext 5%-0.45% NS 1,000 ML 100 ML IV (06:32)
[2018-05-30 07:26] LABS: Bedside Glucose 128 mg/dL (70-110)
[2018-05-30 07:26] LABS: Bedside Glucose 64 mg/dL (70-110)
--- NOTE | 2018-05-30 07:37 | PCM.PROGNOTE ---
Patient Problems: Active and Suspected Problems Gastroenteritis (Acute) Subjective: Day #3 Unasyn All events of the past 24 hours have been reviewed. Blood pressures have been on the low side and over the past 24 hours have ranged from 89/47 to 120/70. Pulse ox is 98-100% on 2 L. Fluid balance since admission is positive for thousand 564. All lab was personally reviewed. White blood cell count today is 7.1, down from 9.3 yesterday. Hemoglobin is stable at 8.9 and platelets are within normal limits. The creatinine is 2.67, up from 2.56 yesterday. Mag and fossa are within normal limits. PCR on the wound drainage from yesterday is negative for staph aureus and negative for MRSA. Fasting blood sugar today was 64. Urine culture is growing 3 different gram-negative rods. Enteric pathogen panel was negative. Wound culture is pending. The Gram stain on the wound culture showed 3+ white blood cells and preliminary culture is positive for 2 different gram-negative galindo. She states she gets lightheaded if she turns over in bed but otherwise she has no complaints today. Objective: - Physical Exam General: Alert, Oriented x3, Cooperative, No apparent distress, pale HEENT: Atraumatic, PERRLA Oral: Dry Mucosa Lungs: Clear to auscultation - anterior and lateral, not tachypneic, no conversational dyspnea Cardiovascular: Regular rate, Regular Rhythm, Normal S1, Normal S2 Abdomen: Soft, Non Tender, Non-Distended, Obese, - - non-healing wounds of the abdominal wall......greenish, malodorous DC, no periowund erythema, no purulent DC....suspect pseudomonas colonization Extremities: No cyanosis Skin: Ulcer/ Wound - see the pictures of the abdominal wall wounds in [place] Lauren note Neurological: Cranial nerves II-XII grossly intact, Neuro grossly intact Psych/Mental Status: Normal Affect, Appropriate - Physical Exam Vital Signs Temp Pulse Resp BP Pulse Ox 97.6 F L 86 16 91/59 L 100 05/30/18 03:46 05/30/18 03:46 05/30/18 03:46 05/30/18 03:46 05/30/18 03:46 Oxygen Flow Rate (L/min) 2 Oxygen Delivery Method Nasal Cannula Weight: 279 lb 15.793 oz Body Mass Index (BMI) 43.8 Intake and Output for Last 24 Hours 05/28/18 05/29/18 05/30/18 23:59 23:59 23:59 Intake Total 365 / 365 4455 / 4455 1694 / 1694 Output Total 1150 / 1150 800 / 800 Balance 365 / 365 3305 / 3305 894 / 894 Microbiology Past 72 Hours 05/29/18 09:35 Gram Stain - Final Wound Drainage - Aerobic & Anaerobic Swabs 05/28/18 14:55 Urine Culture - Preliminary Urine Catheter - Catheter Gram negative galindo Gram negative galindo#2 GNR lactose medical transcription 05/28/18 13:30 Enteric Bacteriology - Final Stool 05/28/18 13:30 C. difficile DNA Amplification - Final Stool Laboratory Tests Past 24 Hrs 05/29/18 05/29/18 05/29/18 06:10 06:10 09:35 WBC RBC Hgb Hct MCV MCH MCHC RDW RDW Differential Plt Count MPV Sodium Potassium Chloride Carbon Dioxide Anion Gap BUN Creatinine Estim Creat Clear Calc Est GFR (MDRD) Af Amer Est GFR (MDRD) Non-Af BUN/Creatinine Ratio Glucose Hemoglobin A1c 6.0 Calcium Phosphorus 3.8 Magnesium 2.2 S.aureus Protein A PCR NEGATIVE MRSA (PCR) Negative 05/30/18 05/30/18 05:16 05:16 WBC 7.1 RBC 3.56 L Hgb 8.9 L Hct 30.1 L MCV 84.6 MCH 25.0 L MCHC 29.6 L RDW 16.1 H RDW Differential 48.2 H Plt Count 354 MPV 9.3 Sodium 140 Potassium 4.1 Chloride 109 H Carbon Dioxide 23.0 Anion Gap 8 BUN 47 H Creatinine 2.67 H Estim Creat Clear Calc 21.79 Est GFR (MDRD) Af Amer 23 L Est GFR (MDRD) Non-Af 19 L BUN/Creatinine Ratio 17.6 Glucose 72 L Hemoglobin A1c Calcium 9.1 Phosphorus 3.6 Magnesium 2.1 S.aureus Protein A PCR MRSA (PCR) POC Glucose 05/30/18 05/30/18 05/29/18 06:43 06:28 22:08 POC Glucose 128 H 64 L 143 H 05/29/18 05/29/18 16:45 11:49 POC Glucose 120 H 72 Medical Necessity - Tobacco Use Smoking Status: Former smoker Tobacco Use: Cigarettes Assessment/Plan All Active Problems Gastroenteritis (Acute) Anemia in chronic kidney disease (Acute) Osteomyelitis of foot, right, acute (Acute) UTI (urinary tract infection) (Acute) Sepsis (Acute) Neutrophilic leukocytosis (Acute) Cellulitis of right foot (Acute) Diabetic ulcer of right foot (Acute) MSSA (methicillin susceptible Staphylococcus aureus) (Resolved) Mycotic cystitis (Resolved) Osteomyelitis (Resolved) Osteomyelitis due to secondary diabetes (Resolved) Impressions 1. complicated UTI - chronic salgado 2. non-healing wounds of the abdominal wall 3. morbid obesity 4. Stage 4 CRF 5. HTN 6. Diabetes mellitus type 2 7. Hyperlipidemia 8. Self-inflicted injury 9. History of iron deficiency anemia -has required iron infusions in the past and the MCV is down to 83 and the RDW is increasing. - given 200 mg iron Sucrose.......she was to get Iron Infusion by Dr. Newton this week but was in the hospital so we gave it to her here yesterday.....talked with Dr. Newton's office and explained we gave the dose 10. Anxiety/depression/bipolar disorder/personality disorder 11. Nausea and diarrhea-positive history of Clostridium difficile but the C. difficile on the stool is negative. Enteric pathogen panel is pending. Change the insulin to 20 units in the AM and 18 units at HS DC the IV fluids Continue sliding scale insulin coverage-medium scale Code Visit Inpatient E&M: 67460 Subs Hosp L2
[2018-05-30] MEDS: ACETIC ACID 1,000 ML IRRIG.SOLN IR ×2 (08:57→22:43)
[2018-05-30] MEDS: 0.9% NaCl Peripheral Flush Adult/Peds IV ×3 (08:58→22:44)
[2018-05-30] MEDS: Multivitamins,Therapeutic Tablet 1 TABLET PO (08:58)
[2018-05-30] MEDS: Calcium Carb/Vitamin D 1 TABLET Tablet PO (08:58)
[2018-05-30] MEDS: Ferrous Sulfate 325 MG Tablet PO ×2 (08:58→17:16)
[2018-05-30 09:03] VITALS: BP 98/57; PULSE 86; RESP 18; TEMP 36.7; O2SAT 100
[2018-05-30] MEDS: Pyridoxine HCl 50 MG Tablet 100 MG PO (09:56)
[2018-05-30] MEDS: Ascorbic Acid 500 MG Tablet PO ×2 (09:56→22:43)
[2018-05-30] MEDS: Glucerna Shake 120 ML LIQUID PO ×4 (09:56→22:42)
[2018-05-30] MEDS: Paroxetine 20 MG Tablet 40 MG PO (09:56)
[2018-05-30] MEDS: QUEtiapine 100 MG Tablet 200 MG PO (09:56)
[2018-05-30] MEDS: Venlafaxine XR 75 MG Capsule 225 MG PO (09:56)
[2018-05-30] MEDS: APIXABAN 5 MG TABLET PO ×2 (09:57→22:43)
--- NOTE | 2018-05-30 10:21 | CASEMGMT ---
Addendum entered by Taniya Miranda 05/30/18 12:53: SW spoke w/PT and OT, pt declined to participated. STEPHAN let Salome at [facility] know that pt declined to participate in therapy at this time. They will not be able to try to skill her without therapy evaluations. Pt can still return on the weekend if able however. RAMY Montelongo, STRUCTURAL MANAGER Original Note: Addendum entered by Taniya Miranda 05/30/18 10:58: SW spoke w/Salome from [facility], she states pt can come back any time on the weekend. They will try to skill pt when she returns, so SW will fax PT/OT evaluations once completed. This will not hold up the discharge however. SW asked for an alternate number for sister, Salome passed on a second number. SW attempted to call, it is a wrong number. SW did try to call pt's sister again on the original number ([phone]), however still not able to leave a voice mail. SW placed green sheet on chart with transport form in event pt can be discharged on the weekend. RAMY Montelongo, STRUCTURAL MANAGER Original Note: Addendum entered by Taniya Miranda 05/30/18 10:36: SW did speak w/pt, pt explained to SW she has been bed bound at the assisted and has not been getting therapy recently. SW explained that therapy will be coming in to see her today. SW asked if she has spoken w/her sister, she states she has not since being here and does not have her number. SW explained can call and if SW reaches her will transfer her to pt's room. STEPHAN called pt's sister, however her voice mail is not set up. SW let pt know this, and did write down the number for pt's sister and her friend, gave the numbers to her. RAMY Montelongo, STRUCTURAL MANAGER Original Note: It does not appear that pt will be ready for discharge today. STEPHAN called Salome at [facility] to ask if pt can return on the weekend. She will call this SW back, updates faxed. RAMY Montelongo, STRUCTURAL MANAGER
[2018-05-30] MEDS: hydrOXYzine PAM 25 MG Capsule PO (12:13)
[2018-05-30 12:25] LABS: Bedside Glucose 112 mg/dL (70-110)
[2018-05-30 13:46] VITALS: BP 107/61; PULSE 92; RESP 16; TEMP 36.7; O2SAT 99
[2018-05-30 18:46] LABS: Bedside Glucose 156 mg/dL (70-110)
[2018-05-30 22:40] VITALS: BP 119/65; PULSE 99; RESP 18; TEMP 36.7; O2SAT 100
[2018-05-30] MEDS: Pravastatin 20 MG Tablet 10 MG PO (22:42)
[2018-05-30] MEDS: hydrOXYzine PAM 25 MG Capsule 50 MG PO (22:42)
[2018-05-30 23:01] LABS: Bedside Glucose 105 mg/dL (70-110)
[2018-05-30 23:20] VITALS: RESP 18
[2018-05-31 06:31] VITALS: BP 115/68; PULSE 96; RESP 16; TEMP 36.4; O2SAT 100
--- NOTE | 2018-05-31 06:32 | NURSING ---
BG 51 AT THIS TIME, CRANBERRY JUICE GIVEN- PATIENT DID NOT WANT OJ. BREAKFAST ORDERED.
[2018-05-31] MEDS: Cilostazol 50 MG Tablet PO ×2 (06:33→18:03)
[2018-05-31 06:55] LABS: Bedside Glucose 94 mg/dL (70-110)
[2018-05-31 06:55] LABS: Bedside Glucose 51 mg/dL (70-110)
[2018-05-31 07:45] VITALS: O2SAT 99
[2018-05-31 07:53] VITALS: BP 112/56; PULSE 90; RESP 18; TEMP 36.6; O2SAT 100
[2018-05-31] MEDS: Calcium Carbonate 500 MG Tablet PO ×3 (08:00→18:02)
[2018-05-31] MEDS: Calcium Carb/Vitamin D 1 TABLET Tablet PO (08:00)
[2018-05-31] MEDS: Ascorbic Acid 500 MG Tablet PO (08:01)
[2018-05-31] MEDS: Multivitamins,Therapeutic Tablet 1 TABLET PO (08:14)
[2018-05-31] MEDS: Ferrous Sulfate 325 MG Tablet PO ×2 (08:14→18:02)
[2018-05-31] MEDS: QUEtiapine 100 MG Tablet 200 MG PO (08:15)
[2018-05-31] MEDS: Venlafaxine XR 75 MG Capsule 225 MG PO (08:15)
[2018-05-31] MEDS: Glucerna Shake 120 ML LIQUID PO ×4 (08:15→21:41)
[2018-05-31] MEDS: Paroxetine 20 MG Tablet 40 MG PO (08:15)
[2018-05-31] MEDS: APIXABAN 5 MG TABLET PO ×2 (08:15→21:38)
[2018-05-31] MEDS: Pyridoxine HCl 50 MG Tablet 100 MG PO (08:16)
[2018-05-31] MEDS: hydrOXYzine PAM 25 MG Capsule PO (08:16)
[2018-05-31] MEDS: ACETIC ACID 1,000 ML IRRIG.SOLN IR ×2 (10:54→21:46)
[2018-05-31] MEDS: 0.9% NaCl Peripheral Flush Adult/Peds IV ×2 (11:05→21:39)
--- NOTE | 2018-05-31 11:06 | PN_ITS ---
Patient Problems: Active and Suspected Problems Gastroenteritis (Acute) Subjective: Day #4 Unasyn All events of the past 24 hours of been reviewed. Afebrile since admission Vital signs are stable 100% saturated on a 2 L nasal cannula Good oral intake. Fluid balance on 05/30/2018 was +1384. Fasting blood sugar was once again low. Culture of the urine grew Proteus mirabilis, Providencia stuartii and E. coli. The Proteus is resistant to bacillin, Unasyn, cefazolin, fluoroquinolones. It is sensitive to cefepime, imipenem and Zosyn. [place] she is susceptible to Unasyn but resistant to ampicillin, cefazolin, gentamicin and intermediately sensitive to francisco quinolones. It is susceptible to Zosyn as well. The E. coli is pansensitive. The wound culture is still pending and is growing 2 different gram-negative rods-I suspect she is colonized with Pseudomonas and I do not believe the wounds are infected. She is currently doing acetic acid wet-to-dry dressings. Objective: - Physical Exam General: Alert, Oriented x3, Cooperative, No apparent distress, pale HEENT: Atraumatic, PERRLA Oral: Dry Mucosa Lungs: Clear to auscultation - anterior and lateral, not tachypneic, no con versational dyspnea Cardiovascular: Regular rate, Regular Rhythm, Normal S1, Normal S2 Abdomen: Soft, Non Tender, Non-Distended, Obese, - - non-healing wounds of the abdominal wall......greenish, malodorous DC, no periwound erythema, no purulent DC. of the abdominal wall but, there is an abscess on the left side of the mons pubis that tunnels and has gill green purulent DC ...suspect pseudomonas colonization/infection Extremities: No cyanosis Skin: Ulcer/ Wound - see the pictures of the abdominal wall wounds in [place] Xin note Neurological: Cranial nerves II-XII grossly intact, Neuro grossly intact Psych/Mental Status: Normal Affect, Appropriate - Physical Exam Vital Signs Temp Pulse Resp BP Pulse Ox 97.9 F 90 18 112/56 L 100 05/31/18 07:53 05/31/18 07:53 05/31/18 07:53 05/31/18 07:53 05/31/18 07:53 Oxygen Flow Rate (L/min) 2 Oxygen Delivery Method Nasal Cannula Weight: 279 lb 15.793 oz Body Mass Index (BMI) 43.8 Intake and Output for Last 24 Hours 05/29/18 05/30/18 05/31/18 23:59 23:59 23:59 Intake Total 4455 / 4455 3534 / 3534 120 / 120 Output Total 1150 / 1150 2150 / 2150 550 / 550 Balance 3305 / 3305 1384 / 1384 -430 / -430 Microbiology Past 72 Hours 05/29/18 09:35 Gram Stain - Final Wound Drainage - Aerobic & Anaerobic Swabs Wound Culture - Preliminary Gram negative galindo Gram negative galindo#2 Anaerobic Culture - Preliminary Checking for anaerobes, further studies to follow. 05/28/18 14:55 Urine Culture - Final Urine Catheter - Catheter Proteus mirabilis Providencia stuartii Escherichia coli 05/28/18 13:30 Enteric Bacteriology - Final Stool 05/28/18 13:30 C. difficile DNA Amplification - Final Stool POC Glucose 05/31/18 05/31/18 05/30/18 06:49 06:27 22:45 POC Glucose 94 51 L 105 05/30/18 05/30/18 17:13 12:10 POC Glucose 156 H 112 H Medical Necessity - Tobacco Use Smoking Status: Former smoker Tobacco Use: Cigarettes Assessment/Plan All Active Problems Gastroenteritis (Acute) Anemia in chronic kidney disease (Acute) Osteomyelitis of foot, right, acute (Acute) UTI (urinary tract infection) (Acute) Sepsis (Acute) Neutrophilic leukocytosis (Acute) Cellulitis of right foot (Acute) Diabetic ulcer of right foot (Acute) MSSA (methicillin susceptible Staphylococcus aureus) (Resolved) Mycotic cystitis (Resolved) Osteomyelitis (Resolved) Osteomyelitis due to secondary diabetes (Resolved) Impressions 1. complicated UTI - chronic salgado 2. non-healing wounds of the abdominal wall 3. morbid obesity 4. Stage 4 CRF 5. HTN 6. Diabetes mellitus type 2 7. Hyperlipidemia 8. Self-inflicted injury 9. History of iron deficiency anemia -has required iron infusions in the past and the MCV is down to 83 and the RDW is increasing. - given 200 mg iron Sucrose.......she was to get Iron Infusion by Dr. Newton this week but was in the hospital so we gave it to her here yesterday.....talked with Dr. Newton's office and explained we gave the dose 10. Anxiety/depression/bipolar disorder/personality disorder 11. Nausea and diarrhea-positive history of Clostridium difficile but the C. difficile on the stool is negative. Enteric pathogen panel is pending. Adjust the insulin Continue Zosyn await the results of the wound culture continue the acetic acid W-D dressings Recheck lab in the AM Code Visit Inpatient E&M: 35199 Subs Hosp L2
[2018-05-31 11:21] LABS: Bedside Glucose 117 mg/dL (70-110)
[2018-05-31 14:00] VITALS: BP 90/40; PULSE 88; RESP 18; TEMP 36.6; O2SAT 97
[2018-05-31 16:25] LABS: Bedside Glucose 113 mg/dL (70-110)
[2018-05-31 20:00] VITALS: BP 109/56; PULSE 95; RESP 16; TEMP 36.4; O2SAT 97
[2018-05-31] MEDS: Pravastatin 20 MG Tablet 10 MG PO (21:38)
[2018-05-31] MEDS: hydrOXYzine PAM 25 MG Capsule 50 MG PO (21:38)
[2018-05-31 22:25] LABS: Bedside Glucose 140 mg/dL (70-110)
--- NOTE | 2018-06-01 02:59 | NURSING ---
rounded on pt to take v/s. pt removed drsg to abdomen and picked her wounds. found adaptic and tissue with blood on the floor. educated pt regarding risk for getting more infection. pt states she cant help it. picking her wounds calms her down and helping her sleep. changed drsg to abdomen.
[2018-06-01 05:52] LABS: Absolute Lymphocyte Count 0.77 X10^3/ul (0.83-4.51); Absolute Neutrophil Count 7.2 X10^3/uL (2.0-7.7); Basophil# 0.05 X10^3/uL; Basophil% 0.5 % (0-1); Eosinophil# 0.44 X10^3/uL; Eosinophils% 4.7 % (0-5); Hemoglobin 8.1 g/dl (12.0-15.0); Lymphocyte # 0.77 X10^3/ul (4.0); Lymphocyte % 8.2 % (19-41); Mean Corpuscular Hgb 25.5 pg (27.0-32.0); Mean Corpuscular Volume 84.9 fL (81-99); Mean Platelet Vol. 9.4 fl (6.2-12.0); Monocyte# 0.93 X10^3/uL; Monocyte% 9.9 % (0-10); Neutrophil # 7.19 X10^3/uL (2.7-7.7); Neutrophil % 76.5 % (47-70); Platelet Count 355 K/mm3 (150-450); RBC Distribution Width CV 16.1 % (11.6-14.6); RBC Distribution Width SD 48.1 fl (35.1-43.9); Red Blood Count 3.18 M/mm3 (4.2-5.4); White Blood Count 9.4 K/mm3 (4.4-11.0)
[2018-06-01 06:09] LABS: Anion Gap 9 (5-15); BUN 69 mg/dL (7-18); BUN/Creat Ratio 24.3 RATIO (10-20); Calcium,Total 8.6 mg/dL (8.5-10.1); Chloride 109 mmol/L (98-107); Creatinine, Serum 2.84 mg/dL (0.55-1.02); EST Glomerular Filtration Rate 18 mL/min (>60); Est Glom Filt Rate - Afr Amer 22 mL/min (>60); Estimated Creatinine Clearance 20.49 ml/min; Glucose 96 mg/dL (74-106); Potassium 4.5 mmol/L (3.5-5.1); Sodium Level 143 mmol/L (136-145)
[2018-06-01 06:36] LABS: POSITIVE COUNT NO; POSITIVE DIFFERENTIAL NO; POSITIVE MORPHOLOGY NO
[2018-06-01] MEDS: Cilostazol 50 MG Tablet PO ×2 (06:38→16:45)
[2018-06-01 06:45] LABS: Bedside Glucose 89 mg/dL (70-110)
[2018-06-01 07:42] VITALS: O2SAT 97
--- NOTE | 2018-06-01 07:57 | PCM.PROGNOTE ---
Patient Problems: Active and Suspected Problems Gastroenteritis (Acute) Subjective: Day #2 Zosyn-day #5 antibiotics but until 06-17 she was on an antibiotic that the urine bacteria is resistant to. The patient is a 62-year-old female with a past medical history of chronic renal failure stage III, hyperlipidemia, iron deficiency anemia, positive history of Clostridium difficile colitis, tobacco dependence, morbid obesity, history of self-inflicted injuries, diabetic peripheral polyneuropathy, hypertension, chronic debility, self-neglect, diabetes mellitus type 2, personality disorder and anxiety who presented to the emergency department at [facility] on 05/28[facility]2018 complaining of nausea/vomiting/diarrhea with abdominal and suprapubic pain. Workup in the emergency room was positive for a catheter associated UTI and she was started on Unasyn. The Salgado catheter was changed. She also has chronic wounds on her abdomen which are colonized with no sign of infection. The urine culture grew Proteus mirabilis, Providencia stuartii and E. coli. the wound culture is growing 2 different strains of Providencia. All events of the past 24 hours been reviewed. Afebrile since admission. Blood pressures have improved She is 97% saturated on 1 L nasal cannula with a respiratory rate of 16-18. Fluid balance on 05/31/2018 was -445. Fluid balance overnight was -600. Fluid balance since admission is positive for thousand. Lab: White blood cell count today is 9.4 with 76% neutrophils. Hemoglobin is 8.1 and platelets are 355,000. MCV is 84.9 and she is known to have iron deficiency anemia and receives intravenous iron from Dr. Topete as an outpatient. She was given iron sucrose 200 mg during this admission. BMP today shows sodium of 143, potassium 4.5, BUN is 69 and her creatinine is 2.84 which is up from 2.7 at admission but is still within her baseline. Continues to c/o vertigo associated with nausea......on hydroxyzine twice daily with no relief. Denies abd pain now. No nausea and oral intake is good. - Physical Exam General: Alert, Cooperative, - - keeping her eyes closed to stop the spinning......gets vertigo associated with nausea whenever she is turned in bed HEENT: Atraumatic, PERRLA, EOMI, Normocephalic Oral: Moist Mucosa Neck: Supple Lungs: Clear to auscultation, Diminished Cardiovascular: Regular rate, Regular Rhythm, Normal S1, Normal S2, No Gallop Abdomen: Bowel Sounds Present, Soft, Non Tender, Obese Extremities: No cyanosis, - - Status post left lower extremity amputation Skin: Ulcer/ Wound - the wounds over the anterior abd wall are superficial and have no amarilis-wound erythema and no purulent DC.....no evidence infection. The wound over the left mons pubis is large and it tracks superior and down 4.8 cm....when I inserted the Q tip into the tract a large amount of gill green pus malodorous pus came out., - Psych/Mental Status: Appropriate Vital Signs Temp Pulse Resp BP Pulse Ox 97.6 F L 95 16 109/56 L 97 05/31/18 20:00 05/31/18 20:00 05/31/18 20:00 05/31/18 20:00 05/31/18 20:00 Oxygen Flow Rate (L/min) 1 Oxygen Delivery Method Nasal Cannula Weight: 279 lb 15.793 oz Body Mass Index (BMI) 43.8 Intake and Output for Last 24 Hours 05/30/18 05/31/18 06/01/18 23:59 23:59 23:59 Intake Total 3534 / 3534 1480 / 1480 300 / 300 Output Total 2150 / 2150 1925 / 1925 900 / 900 Balance 1384 / 1384 -445 / -445 -600 / -600 Microbiology Past 72 Hours 05/29/18 09:35 Gram Stain - Final Wound Drainage - Aerobic & Anaerobic Swabs Wound Culture - Preliminary Gram negative galindo Gram negative galindo#2 Anaerobic Culture - Preliminary Checking for anaerobes, further studies to follow. 05/28/18 14:55 Urine Culture - Final Urine Catheter - Catheter Proteus mirabilis Providencia stuartii Escherichia coli 05/28/18 13:30 Enteric Bacteriology - Final Stool Laboratory Tests Past 24 Hrs 06/01/18 06/01/18 05:05 05:05 WBC 9.4 RBC 3.18 L Hgb 8.1 L Hct 27.0 L MCV 84.9 MCH 25.5 L MCHC 30.0 L RDW 16.1 H RDW Differential 48.1 H Plt Count 355 MPV 9.4 Immature Gran % (Auto) 0.200 Neut % (Auto) 76.5 H Lymph % (Auto) 8.2 L [place] % (Auto) 9.9 Eos % (Auto) 4.7 Baso % (Auto) 0.5 Absolute Neuts (auto) 7.2 Absolute Lymphs (auto) 0.77 L Total Counted Not Reportable Sodium 143 Potassium 4.5 Chloride 109 H Carbon Dioxide 25.0 Anion Gap 9 BUN 69 H Creatinine 2.84 H Estim Creat Clear Calc 20.49 Est GFR (MDRD) Af Amer 22 L Est GFR (MDRD) Non-Af 18 L BUN/Creatinine Ratio 24.3 H Glucose 96 Calcium 8.6 POC Glucose 06/01/18 05/31/18 05/31/18 06:35 21:36 16:18 POC Glucose 89 140 H 113 H 05/31/18 11:02 POC Glucose 117 H Medical Necessity - Tobacco Use Smoking Status: Former smoker Tobacco Use: Cigarettes Assessment/Plan All Active Problems Gastroenteritis (Acute) Anemia in chronic kidney disease (Acute) Osteomyelitis of foot, right, acute (Acute) UTI (urinary tract infection) (Acute) Sepsis (Acute) Neutrophilic leukocytosis (Acute) Cellulitis of right foot (Acute) Diabetic ulcer of right foot (Acute) MSSA (methicillin susceptible Staphylococcus aureus) (Resolved) Mycotic cystitis (Resolved) Osteomyelitis (Resolved) Osteomyelitis due to secondary diabetes (Resolved) Impressions 1. complicated UTI - chronic salgado 2. non-healing wounds of the abdominal wall and an abscess of the left mons pubis 3. morbid obesity 4. Stage 4 CRF 5. HTN 6. Diabetes mellitus type 2 7. Hyperlipidemia 8. Self-inflicted injury 9. History of iron deficiency anemia -has required iron infusions in the past and the MCV is down to 83 and the RDW is increasing. - given 200 mg iron Sucrose.......she was to get Iron Infusion by Dr. Newton this week but was in the hospital so we gave it to her here yesterday.....talked with Dr. Newton's office and explained we gave the dose 10. Anxiety/depression/bipolar disorder/personality disorder 11. Nausea and diarrhea-positive history of Clostridium difficile but the C. difficile on the stool is negative. Enteric pathogen panel is negative. Diarrhea has resolved. 12. Vertigo with nausea BS's are now well controlled with no hypoglycemia Continue Zosyn. I am concerned they may be a fistulous tract from the abscess over the mons pubis to the bladder since she is growing the same strain of Providencia stuartii. they are both multidrug-resistant but sensitive to Zosyn. Start Lasix 40 mg p.o. daily due to chronic renal failure and she is 4 L up since admission Consult Dr. Peters regarding abscess over the mons pubis and possible fistulous tract to the bladder Continue wound care with quarter percent acetic acid wet-to-dry dressings on the abscess Maintain good blood sugar control DC Vistaril and try Valium 2 mg p.o. every 8 hours for vertigo. If the vertigo fails to improve will consider CT scan of the brain to rule out CVA. no other neurologic complaints Code Visit Inpatient E&M: 56492 Subs Hosp L2
[2018-06-01 08:21] VITALS: BP 106/62; PULSE 96; RESP 18; TEMP 36.4; O2SAT 97
[2018-06-01] MEDS: Ferrous Sulfate 325 MG Tablet PO ×2 (08:50→16:45)
[2018-06-01] MEDS: Calcium Carb/Vitamin D 1 TABLET Tablet PO (08:51)
[2018-06-01] MEDS: APIXABAN 5 MG TABLET PO ×2 (08:51→21:23)
[2018-06-01] MEDS: Multivitamins,Therapeutic Tablet 1 TABLET PO (08:51)
[2018-06-01] MEDS: Calcium Carbonate 500 MG Tablet PO ×2 (08:51→16:45)
[2018-06-01] MEDS: Venlafaxine XR 75 MG Capsule 225 MG PO (08:51)
[2018-06-01] MEDS: Glucerna Shake 120 ML LIQUID PO ×3 (08:51→21:26)
[2018-06-01] MEDS: Paroxetine 20 MG Tablet 40 MG PO (08:52)
[2018-06-01] MEDS: Pyridoxine HCl 50 MG Tablet 100 MG PO (08:53)
[2018-06-01] MEDS: QUEtiapine 100 MG Tablet 200 MG PO (08:53)
[2018-06-01] MEDS: Ascorbic Acid 500 MG Tablet PO ×2 (08:53→21:23)
[2018-06-01] MEDS: hydrOXYzine PAM 25 MG Capsule PO (08:53)
[2018-06-01] MEDS: Furosemide 40 MG Tablet PO (08:57)
[2018-06-01 11:35] LABS: Bedside Glucose 160 mg/dL (70-110)
[2018-06-01] MEDS: diazePAM 2 MG Tablet PO ×3 (11:35→21:23)
[2018-06-01] MEDS: Ondansetron ODT 4 MG Tablet PO (11:35)
[2018-06-01] MEDS: ACETIC ACID 1,000 ML IRRIG.SOLN IR ×2 (11:36→21:24)
[2018-06-01] MEDS: Insulin Lispro 100 UNIT/ML INSULN.PEN SC ×2 (11:40→16:44)
--- NOTE | 2018-06-01 11:46 | CT_ITS ---
STUDY: CT ABDOMEN AND PELVIS WITHOUT CONTRAST REASON FOR EXAM: Female, 62 years old. Suprapubic abdominal pain, chronic kidney disease RADIATION DOSAGE (If Supplied By Facility): CTDIvol = ( 34.45 ) mGy, DLP = ( 2144.49 ) mGycm TECHNIQUE: Transaxial images were obtained from the dome of the diaphragm to the symphysis pubis without oral contrast, and without intravenous contrast. Sagittal and coronal images were reconstructed. Individualized dose optimization techniques were used for this CT. COMPARISON: 04/27/2016 FINDINGS: Mild atelectasis in the lung bases. The visualized portions of the heart are within normal limits. Normal liver. Normal gallbladder and extrahepatic biliary system. Normal spleen. Normal pancreas. Normal bilateral adrenal glands. Bilateral renal calcifications are new since the prior study, larger and more numerous on the right side of the left. The largest calcification on the right side measures up to 1.2 cm and fills a posterior mid calyx with extension of calculi through the infundibulum into the renal pelvis. No cony calyceal dilation/hydronephrosis. However, there is mild degree of hydroureter (mid and distal) with several calculi measuring up to 6 mm (axial image [id number]) extending to just above the UVJ. There are also multiple calculi of the right dependent portion of the urinary urinary bladder measuring up to 4 mm. The left kidney is nondilated with only a few scattered small calcifications measuring 2 and 3 mm. There is a simple cyst of the inferior, posterior left kidney. Normal visualized stomach. Normal small intestine. No colon wall thickening. There is moderate fecal retention including the rectal vault. There is non-visualization of the appendix. There is diffuse atherosclerotic calcification of the abdominal aorta, without a demonstrated aneurysm. Normal inferior vena cava. Normal retroperitoneum. Shay catheter is noted within the urinary bladder. Normal visualized uterus. There are surgical clips in the lower anterior abdominal wall. Nonspecific body wall edema of the upper lateral abdomen noted. There are diffuse degenerative changes of the visualized lumbar spine. CT/Abdomen/Pel W ORAL Cont Only IMPRESSION: 1. Extensive right urinary tract calculi (central right kidney/near [place], distal right ureter, urinary bladder) with mild hydroureter. 2. Nonobstructing left renal calculi. 3. Simple left renal cyst. 4. Fecal retention including rectal vault. 5. Atelectasis in the lung bases. Electronically Signed: Rogelio Scott MD at 16:10 EST , Service support ,
[2018-06-01 13:50] VITALS: BP 103/58; PULSE 91; RESP 18; TEMP 36.4; O2SAT 97
[2018-06-01 16:56] LABS: Bedside Glucose 185 mg/dL (70-110)
[2018-06-01 21:00] VITALS: BP 116/61; PULSE 67; RESP 18; TEMP 36.7
[2018-06-01] MEDS: Pravastatin 20 MG Tablet 10 MG PO (21:23)
[2018-06-01 22:45] LABS: Bedside Glucose 171 mg/dL (70-110)
[2018-06-02 04:00] VITALS: BP 114/68; PULSE 95; RESP 18; TEMP 36.6; O2SAT 99
--- NOTE | 2018-06-02 05:55 | US_ITS ---
STUDY: SUPERFICIAL ULTRASOUND - ABSCESS OF LT MONS PUBIS REASON FOR EXAM: Female, 62 years old. ABSCESS OF LT MONS PUBIS TECHNIQUE: A superficial ultrasound was performed with real-time and static weiss-scale imaging. COMPARISON: CT scan of 06/01/2018. FINDINGS: Exam is significantly limited because of patient size. Ultrasound was performed in the area of the skin wound, and of the sinus tract was noted, but no focal fluid collection or definite abscess. US/Other Unlisted US Procedure IMPRESSION: Exam limited by patient size. No definite abscess or focal fluid collection. Note that the CT scan also does not show focal fluid collection. Electronically Signed: Kendall Carolina MD at 14:39 EST , Service support ,
[2018-06-02] MEDS: diazePAM 2 MG Tablet PO ×3 (06:23→21:29)
[2018-06-02 06:36] LABS: Bedside Glucose 99 mg/dL (70-110)
[2018-06-02] MEDS: Cilostazol 50 MG Tablet PO ×2 (06:38→17:40)
[2018-06-02 08:13] VITALS: O2SAT 99
[2018-06-02 10:00] VITALS: BP 94/51; PULSE 97; RESP 16; TEMP 36.8; O2SAT 100
--- NOTE | 2018-06-02 10:07 | NURSING ---
wound photo: abdomen
--- NOTE | 2018-06-02 10:08 | NURSING ---
wound photo: left lower abdomen
[2018-06-02] MEDS: Glucerna Shake 120 ML LIQUID PO ×3 (10:16→21:28)
[2018-06-02] MEDS: Ascorbic Acid 500 MG Tablet PO ×2 (10:17→21:29)
[2018-06-02] MEDS: Paroxetine 20 MG Tablet 40 MG PO (10:17)
[2018-06-02] MEDS: Ferrous Sulfate 325 MG Tablet PO ×2 (10:17→17:40)
[2018-06-02] MEDS: Pyridoxine HCl 50 MG Tablet 100 MG PO (10:17)
[2018-06-02] MEDS: Venlafaxine XR 75 MG Capsule 225 MG PO (10:17)
[2018-06-02] MEDS: Calcium Carbonate 500 MG Tablet PO ×3 (10:18→17:40)
[2018-06-02] MEDS: QUEtiapine 100 MG Tablet 200 MG PO (10:18)
[2018-06-02] MEDS: Multivitamins,Therapeutic Tablet 1 TABLET PO (10:18)
[2018-06-02] MEDS: ACETIC ACID 1,000 ML IRRIG.SOLN IR ×2 (10:19→22:05)
[2018-06-02] MEDS: APIXABAN 5 MG TABLET PO (10:19)
--- NOTE | 2018-06-02 10:25 | PCM.PN.HOSP ---
Patient Problems: Active and Suspected Problems Gastroenteritis (Acute) Subjective: Doing better than when she came in, wound is feeling better since it has been drained Vitals/I&O's: Vital Signs Temp Pulse Resp BP Pulse Ox 98.2 F 97 16 94/51 L 100 06/02/18 10:00 06/02/18 10:00 06/02/18 10:00 06/02/18 10:00 06/02/18 10:00 Oxygen Flow Rate (L/min) 1 Oxygen Delivery Method Nasal Cannula Weight: 279 lb 15.793 oz Body Mass Index (BMI) 43.8 Intake and Output for Last 24 Hours 05/31/18 06/01/18 06/02/18 23:59 23:59 23:59 Intake Total 1480 / 1480 1860 / 1860 894 / 894 Output Total 1925 / 1925 2200 / 2200 1600 / 1600 Balance -445 / -445 -340 / -340 -706 / -706 General: Alert, Oriented x3, Cooperative, No apparent distress HEENT: Atraumatic, EOMI, Normocephalic Oral: Moist Mucosa Neck: Supple, No JVD, Trachea Midline Lungs: Clear to auscultation, Normal air movement, No rhonchi, No wheeze, Diminished Cardiovascular: Regular rate, Regular Rhythm, Normal S1, Normal S2, No murmurs Abdomen: Soft, Non Tender, Non-Distended, No Hepato-splenomegaly Extremities: Edema Skin: - - Multiple areas of picking wounds as well as excoriations, packed abscess in her left pubis Neurological: Neuro grossly intact, Sensory exam intact to light touch and pain Psych/Mental Status: Normal Affect, Appropriate Microbiology Past 72 Hours 05/29/18 09:35 Wound Drainage - Aerobic & Anaerobic Swabs Gram Stain - Final 05/29/18 09:35 Wound Drainage - Aerobic & Anaerobic Swabs Wound Culture - Preliminary Proteus mirabilis Proteus mirabilis#2 05/29/18 09:35 Wound Drainage - Aerobic & Anaerobic Swabs Anaerobic Culture - Preliminary Checking for anaerobes, further studies to follow. 05/28/18 14:55 Urine Catheter - Catheter Urine Culture - Final Proteus mirabilis Providencia stuartii Escherichia coli Laboratory Results 06/01/18 11:32: POC Glucose 160 H 06/01/18 16:43: POC Glucose 185 H 06/01/18 21:20: POC Glucose 171 H 06/02/18 06:21: POC Glucose 99 Current Medications Acetaminophen (Tylenol) 650 mg PO Q6H PRN PRN PRN Reason: PAIN Acetic Acid (Acetic Acid) 0 ml IR BID [facility] Last Admin: 06/02/18 10:19 Dose: 1,000 ml Albuterol Sulfate (Ventolin Aerosols) 2.5 mg INHALATION Q6H PRN PRN PRN Reason: SOB &/OR WHEEZING Apixaban (Eliquis) 5 mg PO BID [facility] Last Admin: 06/02/18 10:19 Dose: 5 mg Ascorbic Acid (Vitamin C) 500 mg PO BID [facility] Last Admin: 06/02/18 10:17 Dose: 500 mg Bisacodyl (Dulcolax) 10 mg RECTAL DAILY PRN PRN PRN Reason: Constipation Calcium Carbonate (Tums) 500 mg PO TIDCM [facility] Last Admin: 06/02/18 10:18 Dose: 500 mg Calcium/Vitamin D (Os-Ha 500mg + D) [facility] Last Admin: 06/01/18 08:51 Dose: 1 tablet Cholecalciferol (Vitamin D) 1,000 unit PO DAILY [facility] Last Admin: 06/02/18 10:18 Dose: 1,000 unit Cilostazol (Pletal) 50 mg PO BIDAC [facility] Last Admin: 06/02/18 06:38 Dose: 50 mg Diazepam (Valium) 2 mg PO Q8H [facility] Stop: 06/07/18 14:01 Last Admin: 06/02/18 06:23 Dose: 2 mg Ferrous Sulfate (Ferrous Sulfate) 325 mg PO BIDCM [facility] Last Admin: 06/02/18 10:17 Dose: 325 mg Furosemide (Lasix) 40 mg PO DAILY [facility] Last Admin: 06/01/18 08:57 Dose: 40 mg Sodium Chloride () 250 mls @ 15 mls/hr IV .[id number] PRN PRN Reason: SALINE FLUSH Piperacillin Sod/Tazobactam (Sod 3.375 gm/ Sodium Chloride) 50 mls @ 12.5 mls/hr IV Q8 [facility] Last Admin: 06/02/18 06:24 Dose: 12.5 mls/hr Insulin Glargine (Lantus (Bkc)) 15 units SC QHS [facility] Last Admin: 06/01/18 21:23 Dose: 15 u Insulin Glargine (Lantus (Bkc)) 15 units SC QAM [facility] Last Admin: 06/02/18 10:19 Dose: 15 units Insulin Human Lispro (Humalog Kwikpen (Bkc)) 0 unit SC TIDAC [facility]; Protocol Last Admin: 06/02/18 06:25 Dose: Not Given Lactobacillus Acidophilus (Acidophilus) 1 tablet PO TID [facility] Last Admin: 06/02/18 06:24 Dose: 1 tablet Multivitamins ([facility]ivitamin) [facility] Last Admin: 06/02/18 10:18 Dose: 1 tablet Nutritional Formula (Yunier - [place] Flavor) 1 packet PO BIDCM [facility] Last Admin: 06/02/18 10:18 Dose: 1 packet Nutritional Formula (Lactose Free) (Glucerna Shake) 120 ml PO 4X/DAY [facility] Last Admin: 06/02/18 10:16 Dose: 120 ml Nystatin (Mycostatin Powder) 1 applic TOPICAL BID [facility]; Protocol Last Admin: 06/02/18 10:15 Dose: Not Given Ondansetron HCl (Zofran Odt) 4 mg PO Q6H PRN PRN PRN Reason: NAUSEA Last Admin: 06/01/18 11:35 Dose: 4 mg Paroxetine HCl (Paxil) 40 mg PO DAILY [facility] Last Admin: 06/02/18 10:17 Dose: 40 mg Pravastatin Sodium (Pravachol) 10 mg PO QHS [facility] Last Admin: 06/01/18 21:23 Dose: 10 mg Pyridoxine HCl (Vitamin B-6) 100 mg PO DAILY [facility] Last Admin: 06/02/18 10:17 Dose: 100 mg Quetiapine Fumarate (Seroquel) 200 mg PO DAILY [facility] Last Admin: 06/02/18 10:18 Dose: 200 mg Sodium Chloride () 5 - 15 ml IV UD PRN PRN Reason: SALINE FLUSH Last Admin: 05/31/18 21:39 Dose: 10 ml Venlafaxine HCl (Effexor Xr) 225 mg PO DAILY [facility] Last Admin: 06/02/18 10:17 Dose: 225 mg Medical Necessity - Tobacco Use Smoking Status: Former smoker Tobacco Use: Cigarettes Assessment/Plan All Active Problems Gastroenteritis (Acute) Anemia in chronic kidney disease (Acute) Osteomyelitis of foot, right, acute (Acute) UTI (urinary tract infection) (Acute) Sepsis (Acute) Neutrophilic leukocytosis (Acute) Cellulitis of right foot (Acute) Diabetic ulcer of right foot (Acute) MSSA (methicillin susceptible Staphylococcus aureus) (Resolved) Mycotic cystitis (Resolved) Osteomyelitis (Resolved) 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 Nonhealing wound of abdominal wall with an abscess of the left pubis/chronic wounds -Bacterial cultures with Proteus and E. coli sensitive to Zosyn, will continue -Dr. 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 HTN/HLD/CKD 4/chronic Shay/PVD/iron deficiency anemia -Urine culture with multiple drugs as well though this is anticipated given she has a chronic Shay -We will continue with Lasix 40 mg p.o. for edema in the setting of her CKD -Blood pressures are controlled and stable -Continue with pravastatin -Continue with Pletal -Has needed blood transfusions and iron transfusions in the past, will continue with p.o. iron supplementation. 3. IDDM 2/morbid obesity -Continue with home insulin regimen as well as sliding scale insulin will monitor blood sugars -Counseled on diet and exercise for obesity 4. Anxiety/depression/personality disorder/bipolar -Currently stable -continue with Seroquel, Effexor, Valium, Paxil DVT: Will hold Eliquis in the face of possible surgery, c/w heparin Code Visit Inpatient E&M: [id number] Subs Hosp L2
--- NOTE | 2018-06-02 10:29 | PN_ITS ---
Patient Problems: Active and Suspected Problems Gastroenteritis (Acute) Subjective: Doing better than when she came in, wound is feeling better since it has been drained Vitals/I&O's: Vital Signs Temp Pulse Resp BP Pulse Ox 98.2 F 97 16 94/51 L 100 06/02/18 10:00 06/02/18 10:00 06/02/18 10:00 06/02/18 10:00 06/02/18 10:00 Oxygen Flow Rate (L/min) 1 Oxygen Delivery Method Nasal Cannula Weight: 279 lb 15.793 oz Body Mass Index (BMI) 43.8 Intake and Output for Last 24 Hours 05/31/18 06/01/18 06/02/18 23:59 23:59 23:59 Intake Total 1480 / 1480 1860 / 1860 894 / 894 Output Total 1925 / 1925 2200 / 2200 1600 / 1600 Balance -445 / -445 -340 / -340 -706 / -706 General: Alert, Oriented x3, Cooperative, No apparent distress HEENT: Atraumatic, EOMI, Normocephalic Oral: Moist Mucosa Neck: Supple, No JVD, Trachea Midline Lungs: Clear to auscultation, Normal air movement, No rhonchi, No wheeze, Diminished Cardiovascular: Regular rate, Regular Rhythm, Normal S1, Normal S2, No murmurs Abdomen: Soft, Non Tender, Non-Distended, No Hepato-splenomegaly Extremities: Edema Skin: - - Multiple areas of picking wounds as well as excoriations, packed abscess in her left pubis Neurological: Neuro grossly intact, Sensory exam intact to light touch and pain Psych/Mental Status: Normal Affect, Appropriate Microbiology Past 72 Hours 05/29/18 09:35 Wound Drainage - Aerobic & Anaerobic Swabs Gram Stain - Final 05/29/18 09:35 Wound Drainage - Aerobic & Anaerobic Swabs Wound Culture - Preliminary Proteus mirabilis Proteus mirabilis#2 05/29/18 09:35 Wound Drainage - Aerobic & Anaerobic Swabs Anaerobic Culture - Preliminary Checking for anaerobes, further studies to follow. 05/28/18 14:55 Urine Catheter - Catheter Urine Culture - Final Proteus mirabilis Providencia stuartii Escherichia coli Laboratory Results 06/01/18 11:32: POC Glucose 160 H 06/01/18 16:43: POC Glucose 185 H 06/01/18 21:20: POC Glucose 171 H 06/02/18 06:21: POC Glucose 99 Current Medications Acetaminophen (Tylenol) 650 mg PO Q6H PRN PRN PRN Reason: PAIN Acetic Acid (Acetic Acid) 0 ml IR BID [facility] Last Admin: 06/02/18 10:19 Dose: 1,000 ml Albuterol Sulfate (Ventolin Aerosols) 2.5 mg INHALATION Q6H PRN PRN PRN Reason: SOB &/OR WHEEZING Apixaban (Eliquis) 5 mg PO BID [facility] Last Admin: 06/02/18 10:19 Dose: 5 mg Ascorbic Acid (Vitamin C) 500 mg PO BID [facility] Last Admin: 06/02/18 10:17 Dose: 500 mg Bisacodyl (Dulcolax) 10 mg RECTAL DAILY PRN PRN PRN Reason: Constipation Calcium Carbonate (Tums) 500 mg PO TIDCM [facility] Last Admin: 06/02/18 10:18 Dose: 500 mg Calcium/Vitamin D (Os-Ha 500mg + D) [facility] Last Admin: 06/01/18 08:51 Dose: 1 tablet Cholecalciferol (Vitamin D) 1,000 unit PO DAILY [facility] Last Admin: 06/02/18 10:18 Dose: 1,000 unit Cilostazol (Pletal) 50 mg PO BIDAC [facility] Last Admin: 06/02/18 06:38 Dose: 50 mg Diazepam (Valium) 2 mg PO Q8H [facility] Stop: 06/07/18 14:01 Last Admin: 06/02/18 06:23 Dose: 2 mg Ferrous Sulfate (Ferrous Sulfate) 325 mg PO BIDCM [facility] Last Admin: 06/02/18 10:17 Dose: 325 mg Furosemide (Lasix) 40 mg PO DAILY [facility] Last Admin: 06/01/18 08:57 Dose: 40 mg Sodium Chloride () 250 mls @ 15 mls/hr IV .[id number] PRN PRN Reason: SALINE FLUSH Piperacillin Sod/Tazobactam (Sod 3.375 gm/ Sodium Chloride) 50 mls @ 12.5 mls/hr IV Q8 [facility] Last Admin: 06/02/18 06:24 Dose: 12.5 mls/hr Insulin Glargine (Lantus (Bkc)) 15 units SC QHS [facility] Last Admin: 06/01/18 21:23 Dose: 15 u Insulin Glargine (Lantus (Bkc)) 15 units SC QAM [facility] Last Admin: 06/02/18 10:19 Dose: 15 units Insulin Human Lispro (Humalog Kwikpen (Bkc)) 0 unit SC TIDAC [facility]; Protocol Last Admin: 06/02/18 06:25 Dose: Not Given Lactobacillus Acidophilus (Acidophilus) 1 tablet PO TID [facility] Last Admin: 06/02/18 06:24 Dose: 1 tablet Multivitamins (Multivitamin) [facility] Last Admin: 06/02/18 10:18 Dose: 1 tablet Nutritional Formula (Yunier - [place] Flavor) 1 packet PO BIDCM [facility] Last Admin: 06/02/18 10:18 Dose: 1 packet Nutritional Formula (Lactose Free) (Glucerna Shake) 120 ml PO 4X/DAY [facility] Last Admin: 06/02/18 10:16 Dose: 120 ml Nystatin (Mycostatin Powder) 1 applic TOPICAL BID [facility]; Protocol Last Admin: 06/02/18 10:15 Dose: Not Given Ondansetron HCl (Zofran Odt) 4 mg PO Q6H PRN PRN PRN Reason: NAUSEA Last Admin: 06/01/18 11:35 Dose: 4 mg Paroxetine HCl (Paxil) 40 mg PO DAILY [facility] Last Admin: 06/02/18 10:17 Dose: 40 mg Pravastatin Sodium (Pravachol) 10 mg PO QHS [facility] Last Admin: 06/01/18 21:23 Dose: 10 mg Pyridoxine HCl (Vitamin B-6) 100 mg PO DAILY [facility] Last Admin: 06/02/18 10:17 Dose: 100 mg Quetiapine Fumarate (Seroquel) 200 mg PO DAILY [facility] Last Admin: 06/02/18 10:18 Dose: 200 mg Sodium Chloride () 5 - 15 ml IV UD PRN PRN Reason: SALINE FLUSH Last Admin: 05/31/18 21:39 Dose: 10 ml Venlafaxine HCl (Effexor Xr) 225 mg PO DAILY [facility] Last Admin: 06/02/18 10:17 Dose: 225 mg Medical Necessity - Tobacco Use Smoking Status: Former smoker Tobacco Use: Cigarettes Assessment/Plan All Active Problems Gastroenteritis (Acute) Anemia in chronic kidney disease (Acute) Osteomyelitis of foot, right, acute (Acute) UTI (urinary tract infection) (Acute) Sepsis (Acute) Neutrophilic leukocytosis (Acute) Cellulitis of right foot (Acute) Diabetic ulcer of right foot (Acute) MSSA (methicillin susceptible Staphylococcus aureus) (Resolved) Mycotic cystitis (Resolved) Osteomyelitis (Resolved) 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 Nonhealing wound of abdominal wall with an abscess of the left pubis/chronic wounds -Bacterial cultures with Proteus and E. coli sensitive to Zosyn, will continue -Dr. 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 HTN/HLD/CKD 4/chronic Shay/PVD/iron deficiency anemia -Urine culture with multiple drugs as well though this is anticipated given she has a chronic Shay -We will continue with Lasix 40 mg p.o. for edema in the setting of her CKD -Blood pressures are controlled and stable -Continue with pravastatin -Continue with Pletal -Has needed blood transfusions and iron transfusions in the past, will continue with p.o. iron supplementation. 3. IDDM 2/morbid obesity -Continue with home insulin regimen as well as sliding scale insulin will monitor blood sugars -Counseled on diet and exercise for obesity 4. Anxiety/depression/personality disorder/bipolar -Currently stable -continue with Seroquel, Effexor, Valium, Paxil DVT: Will hold Eliquis in the face of possible surgery, c/w heparin Code Visit Inpatient E&M: [id number] Subs Hosp L2
[2018-06-02 11:23] VITALS: BP 92/49; PULSE 96; RESP 18; TEMP 36.9; O2SAT 99
[2018-06-02] MEDS: Calcium Carb/Vitamin D 1 TABLET Tablet PO (11:25)
[2018-06-02] MEDS: Ondansetron ODT 4 MG Tablet PO ×2 (11:28→22:12)
[2018-06-02 11:55] LABS: Bedside Glucose 132 mg/dL (70-110)
--- NOTE | 2018-06-02 12:13 | NURSING ---
1130: patient's blood sugar 50. gave 4 oz oj at this time. 1200 patient's blood sugar still low at 58. patient requests sprite. Will send physician a message regarding recurrent hypoglycemia.
--- NOTE | 2018-06-02 13:00 | NURSING ---
patient off unit for u/s.
--- NOTE | 2018-06-02 13:24 | CHAPLAIN ---
Type of Pastoral Visit _x__ Initial Visit ___ Follow-up Visit ___ On-call Visit ___ General Patient Visit ___ Spiritual Assessment ___ Family Conference ___ Bereavement ___ Rapid Response ___ Code Blue ___ Other (describe below) Pastoral Care Referral From ___ Patient ___ Family ___ Nurse ___ Physician ___ Board Operator ___ Cooling Tower Operator ___ Other (describe below) Sacrament/Intervention ___ Active listening ___ Anointing ___ Restorationist ___ Bereavement ___ Communion ___ Diana exploration ___ ___ Life review ___ Prayer ___ Reconciliation ___ Sacrament of Sick ___ Supportive presence ___ Wedding ___ Other (describe below) Pastoral Comments patient declined having a visit at this time; pt said just say a prayer for me
--- NOTE | 2018-06-02 13:30 | CASEMGMT ---
Social Work Note Pt is not discharging today. SW faxed updated clinicals to [facility]. SW placed a call to Edwina at [facility] and updated her. 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
[2018-06-02] MEDS: 0.9% NaCl Peripheral Flush Adult/Peds IV (13:53)
--- NOTE | 2018-06-02 13:54 | CON.PCM_ITS ---
Reason for Consult Date of Consultation: 06/02/18 Reason for Consultation: Nonhealing abdominal wall and pubic abscess ulcers. REFERRING PHYSICIAN: Dr. Olvera. PEDIATRIC CARE COORDINATOR: Dr. Dillard. History of Present Illness: The patient is a 62 year old F who presented to the ED on 05/28/18 because of nausea, vomiting, and diarrhea. She was started on Ciprofloxacin as she was noted to have a UTI. Initial WBC was 10.1 and is now 9.4. Initial Hgb was 8.6 and is now 8.1. Initial BUN/Creat was 43/2.7 and is now 69/2.84. Urine culture showed Proteus mirabilis, Providencia stuartii, and E. coli. She was noted to have nonhealing abdominal wall and pubic area abscess ulcers that were cultured. It showed Proteus mirabilis, Bacteroides, vulgatus, and Bacteroides ovatus. Her antibiotics have since been changed to Zosyn. Wound care was started with Acetic Acid dressing changes. CT Abdomen was done which showed kidney stones. Patient is diabetic and has a large abdominal panniculus with panniculitis that is complicating her nonhealing abscess ulcers. I was asked to evaluate this patient for surgical options for treatment. Of note is the patient has a history of chronic picking of her skin which aggravates her skin ulcers and leads to recurrent infections. Her HgbA1c was 6.0. Past Medical History Past Medical History (Chronic Problems): Chronic Problems Intertrigo (Chronic) abdominal wall skin crease intertrigo Panniculitis (Chronic) Abdominal panniculus (Chronic) Iron deficiency anemia (Chronic) Chronic respiratory failure with hypoxia (Chronic) Type 2 diabetes mellitus with diabetic polyneuropathy (Chronic) History of tobacco abuse (Chronic) HLD (hyperlipidemia) (Chronic) HTN (hypertension) (Chronic) Morbid obesity (Chronic) bmi 46 Noncompliance (Chronic) with diabetic therapy Personality disorder (Chronic) History of self-harm (Chronic) scratching and picking Self neglect (Chronic) Type 2 diabetes mellitus (Chronic) Bipolar disorder (Chronic) Anxiety (Chronic) 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 2 diabetes mellitus with diabetic polyneuropathy (Chronic) Allergies adhesive Allergy (Verified 05/28/18 12:50) Rash cefadroxil hydrate [From Duricef] Allergy (Verified 05/28/18 12:50) Rash cephalexin monohydrate [From Keflex] Allergy (Verified 05/28/18 12:50) Rash venom-honey bee [bee venom (honey bee)] Allergy (Verified 05/28/18 12:50) Rash Current Medications Acetaminophen (Tylenol) 650 mg PO Q6H PRN Acetic Acid (Acetic Acid) 0 ml IR BID [facility] Albuterol Sulfate (Ventolin Aerosols) 2.5 mg INHALATION Q6H PRN Ascorbic Acid (Vitamin C) 500 mg PO BID [facility] Bisacodyl (Dulcolax) 10 mg RECTAL DAILY PRN Calcium Carbonate (Tums) 500 mg PO TIDCM [facility] Calcium/Vitamin D (Os-Ha 500mg + D) 1 tablet PO DAILYCM [facility] Cholecalciferol (Vitamin D) 1,000 unit PO DAILY [facility] Cilostazol (Pletal) 50 mg PO BIDAC [facility] Diazepam (Valium) 2 mg PO Q8H [facility] Ferrous Sulfate (Ferrous Sulfate) 325 mg PO BIDCM [facility] Furosemide (Lasix) 40 mg PO DAILY [facility] Heparin Sodium (Porcine) (Heparin Na) 5,000 unit SC Q12 [facility] Piperacillin Sod/Tazobactam (Sod 3.375 gm/ Sodium Chloride) 50 mls @ 12.5 mls/hr IV Q8 [facility] Insulin Glargine (Lantus (Bkc)) 15 units SC QHS [facility] Insulin Glargine (Lantus (Bkc)) 15 units SC QAM [facility] Insulin Human Lispro (Humalog Kwikpen (Bkc)) 0 unit SC TIDAC [facility]; Protocol Lactobacillus Acidophilus (Acidophilus) 1 tablet PO TID [facility] Multivitamins (Multivitamin) 1 tablet PO DAILYCM [facility] Nutritional Formula (Yunier - [place] Flavor) 1 packet PO BIDCM [facility] Nutritional Formula (Lactose Free) (Glucerna Shake) 120 ml PO 4X/DAY [facility] Nystatin (Mycostatin Powder) 1 applic TOPICAL BID [facility]; Protocol Ondansetron HCl (Zofran Odt) 4 mg PO Q6H PRN Paroxetine HCl (Paxil) 40 mg PO DAILY [facility] Pravastatin Sodium (Pravachol) 10 mg PO QHS [facility] Pyridoxine HCl (Vitamin B-6) 100 mg PO DAILY [facility] Quetiapine Fumarate (Seroquel) 200 mg PO DAILY [facility] Venlafaxine HCl (Effexor Xr) 225 mg PO DAILY [facility] Home Medications: Ambulatory Orders Medication Instructions Recorded Apixaban [Eliquis] 5 mg PO BID 05/28/18 Ascorbic Acid [Vitamin C] 500 mg PO BID 05/28/18 Calcium Carbonate [Tums] 500 mg PO TIDCM 05/28/18 Calcium Carbonate/Vitamin D3 1 each PO BID 05/28/18 [Calcium 600-Vit D3 200 Tablet] Cholecalciferol (VIT D3) [Vitamin 2,000 unit PO DAILY 05/28/18 D3] Cilostazol [Pletal] 50 mg PO BIDAC 05/28/18 Ferrous Sulfate 325 mg PO BID 05/28/18 Hydroxyzine Pamoate [Vistaril] 50 mg PO QHS 05/28/18 Insulin Glargine,Hum.rec.anlog 30 unit SQ BID 05/28/18 [Basaglar Kwikpen U-100] Lactobacillus Acidophilus 1 each PO DAILY 05/28/18 [Acidophilus] Loperamide HCl [Imodium A-D] 4 mg PO PRN PRN 05/28/18 Meclizine HCl 25 mg PO PRN PRN 05/28/18 Multivitamin [Multivitamins] 1 each PO DAILY 05/28/18 Paroxetine HCl [Paxil] 40 mg PO DAILY 05/28/18 Pravastatin Sodium 10 mg PO DAILY 05/28/18 Pyridoxine HCl [Vitamin B6] 100 mg PO DAILY 05/28/18 Quetiapine Fumarate [Seroquel] 200 mg PO DAILY 05/28/18 Venlafaxine HCl [Venlafaxine HCl 225 mg PO DAILY 05/28/18 ER] hydrOXYzine pamoate capsule 25 mg PO DAILY 05/28/18 [Vistaril pamoate capsule] Bisacodyl [Dulcolax] 10 mg RECTAL DAILY PRN PRN suppos. 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 HEENT: Eyes: + LH/vertigious. No visual loss, blurred vision, double vision or yellow sclerae. Ears, Nose, Throat: No hearing loss, sneezing, congestion, runny nose or sore throat. SKIN: No rash or itching, lesions, wounds. CARDIOVASCULAR: No chest pain, chest pressure or chest discomfort, palpitations, edema, orthopnea, syncopal events. RESPIRATORY: No shortness of breath, cough or sputum, wheezing, hemoptysis. GASTROINTESTINAL: + anorexia, nausea, vomiting, diarrhea, abdominal pain, No melena, BRBPR. GENITOURINARY: + Suprapubic TTP, chronic suprapubic in place. Unable to discern dysuria, frequency, urgency or retention. NEUROLOGICAL: No headache, dizziness, syncope, paralysis, ataxia, numbness or tingling in the extremities, focal weakness, change in bowel or bladder control, seizure. MUSCULOSKELETAL: + muscle, back pain, joint pain/stiffness. HEMATOLOGIC: + anemia, bleeding or bruising. LYMPHATICS: No enlarged nodes. No history of splenectomy. PSYCHIATRIC: + history of depression or anxiety. ENDOCRINOLOGIC: No reports of sweating, cold or heat intolerance. No polyuria or polydipsia. ALLERGIES: No history of asthma, hives, eczema or rhinitis. - Physical Exam General: awake, alert, oriented x 3. Skin: normal color, turgor, no icterus, cyanosis, chronic skin wounds with picking history. HEENT: EOMI, PERRLA. Lungs: Breath sounds, diminished bilaterally. No wheezing. Heart: Regular rate and rhythm. Abdomen: soft, morbidly obese. Large abdominal panniculus present. Some abdominal wall skin crease intertrigo noted. Nondistended. Multiple ulcerations noted on her abdominal wall from chronic picking. Has a draining abscess in the pubic area. Areas are tender to palpation. Extremities: no cyanosis, clubbing, Bilateral lower extremity edema. chronic picking wounds present. Neurological: cranial nerves II-XII grossly normal. Psychiatric: affect appears fatigued, mildly lethargic, no acute evidence of depressive or anxiety feelings. Vital Signs Temp Pulse Resp BP Pulse Ox 98.4 F 96 18 92/49 L 99 06/02/18 11:23 06/02/18 11:23 06/02/18 11:23 06/02/18 11:23 06/02/18 11:23 Oxygen Flow Rate (L/min) 1 Oxygen Delivery Method Nasal Cannula Weight: 279 lb 15.793 oz Body Mass Index (BMI) 43.8 Intake and Output for Last 24 Hours 05/31/18 06/01/18 06/02/18 23:59 23:59 23:59 Intake Total 1480 / 1480 1860 / 1860 1167 / 1167 Output Total 1925 / 1925 2200 / 2200 2150 / 2150 Balance -445 / -445 -340 / -340 -983 / -983 Microbiology Past 72 Hours 05/29/18 09:35 Gram Stain - Final Wound Drainage - Aerobic & Anaerobic Swabs Wound Culture - Preliminary Proteus mirabilis Proteus mirabilis#2 Gram positive galindo Anaerobic Culture - Preliminary Checking for anaerobes, further studies to follow. 05/28/18 14:55 Urine Culture - Final Urine Catheter - Catheter Proteus mirabilis Providencia stuartii Escherichia coli POC Glucose 06/02/18 06/02/18 06/01/18 11:20 06:21 21:20 POC Glucose 132 H 99 171 H 06/01/18 16:43 POC Glucose 185 H Assessment/Plan All Active Problems Ulcer of abdomen wall with fat layer exposed (Acute) Abdominal wall abscess (Acute) Ulceration, vulva (Acute) Vulvar abscess (Acute) Gastroenteritis (Acute) Anemia in chronic kidney disease (Acute) Osteomyelitis of foot, right, acute (Acute) UTI (urinary tract infection) (Acute) Sepsis (Acute) Neutrophilic leukocytosis (Acute) Cellulitis of right foot (Acute) Diabetic ulcer of right foot (Acute) MSSA (methicillin susceptible Staphylococcus aureus) (Resolved) Mycotic cystitis (Resolved) Osteomyelitis (Resolved) 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 Nonhealing abdominal wall and pubic abscess ulcers. 2. Diabetes mellitus. 3. Abdominal panniculus with panniculitis. 4. Obesity. 5. Abdominal wall skin crease intertrigo. 6. UTI. 7. Anemia of chronic disease. CT reviewed. Abdominal wall and pubic abscesses do not appear to have intra- abdominal involvement. Recent wound culture shows Proteus mirabilis, Bacteroides vulgatus, and Bacteroides ovatus. Recent urine culture shows Proteus mirabilis, Providencia stuartii, and E. coli. She is currently on Zosyn. With her diabetes mellitus, obesity and large abdominal panniculus and associated panniculitis, she is at increased risk for developing a necrotizing soft tissue infection. Recommend incision and drainage of these abscess ulcers with debridement of skin and subcutaneous tissue and possible fascia for necrotizing soft tissue infection. With the involvement of the mons pubis area, a partial vulvectomy may be necessary as well. Will leave the wounds open initially and proceed with wound care with the VAC. Will send tissue to Pathology for analysis to rule out carcinoma and to Microbiology for culture. A positive culture may necessitate antibiotic modification. She came from [place] so at discharge she will return there. She can [facility]. If there is a plateau in the healing process, can proceed with delayed closure with skin grafting. Her HgbA1c is 6.0 so would be able to proceed with the elective skin grafting if necessary. Anticipate increased metabolic demands from the infection and from the surgery. Will check a Prealbumin and encourage nutritional supplementation with protein to help the healing process. Ultimately she will need a large portion of her abdominal panniculus excised. Difficult to do all at once because of the degree of bleeding that is usually present. Also the patient has chronic issues with picking at her skin which only aggravates the recurrent infections. So too large of a wound initially in this patient may be problematic. So a more limited debridement would be test to see how well she can tolerate the wound care before proceeding with additional debridement. Patient was informed of the risks and complications of the procedure including alternatives to surgery. These were discussed with the patient personally. Patient voices understanding and wishes to proceed. Surgery will be done under general anesthesia. Her Hgb is 8.1. Will type and cross for PRBC for surgery. Will transfuse perioperatively as I anticipate a moderate amount of blood loss with the surgery. Code Visit Inpatient E&M: 89539 Init Hosp L2 - ICD-10 - L02.11, N76.4, L98.492, N76.6, E11.9, E65, M79.3, E66.01, L30.4, N39.0, N18.9
[2018-06-02 13:58] VITALS: BP 103/55; PULSE 96; RESP 18; TEMP 36.7; O2SAT 97
[2018-06-02 17:35] LABS: Bedside Glucose 152 mg/dL (70-110)
[2018-06-02] MEDS: Insulin Lispro 100 UNIT/ML INSULN.PEN SC (17:41)
[2018-06-02] MEDS: Heparin Injection (Vial) 5,000 UNIT/ML VIAL 5000 UNIT SC (21:28)
[2018-06-02] MEDS: Pravastatin 20 MG Tablet 10 MG PO (21:28)
[2018-06-02 22:00] VITALS: BP 106/53; PULSE 95; RESP 18; TEMP 36.4; O2SAT 100
[2018-06-02 23:10] LABS: Bedside Glucose 169 mg/dL (70-110)
[2018-06-03] VITALS (21 sets, daily range): BP systolic 107–133; BP diastolic 56–85; PULSE 84–99; RESP 16–20; TEMP 36.2–37; O2SAT 93–100; BMI 43.8
[2018-06-03] MEDS: diazePAM 2 MG Tablet PO ×2 (06:39→21:43)
[2018-06-03] MEDS: Cilostazol 50 MG Tablet PO (06:40)
[2018-06-03 06:55] LABS: Bedside Glucose 137 mg/dL (70-110)
--- NOTE | 2018-06-03 08:34 | NURSING ---
Plan is for patient to go to surgery today with Dr Dillard for surgical debridement of the abdomen. Pt will most likely need a wound VAC post op. will continue to follow. will leave dressing in place since patient is going to surgery.
[2018-06-03 08:55] LABS: Absolute Lymphocyte Count 0.93 X10^3/ul (0.83-4.51); Absolute Neutrophil Count 8.3 X10^3/uL (2.0-7.7); Basophil# 0.06 X10^3/uL; Basophil% 0.6 % (0-1); Eosinophil# 0.39 X10^3/uL; Eosinophils% 3.7 % (0-5); Hematocrit 32.4 % (37-47); Hemoglobin 10.2 g/dl (12.0-15.0); International Normalized Ratio 1.4; Lymphocyte # 0.93 X10^3/ul (4.0); Lymphocyte % 8.7 % (19-41); Mean Corp Hgb Conc 31.5 g/gl (32-36); Mean Corpuscular Volume 82.4 fL (81-99); Monocyte# 0.97 X10^3/uL; Monocyte% 9.1 % (0-10); Neutrophil # 8.26 X10^3/uL (2.7-7.7); Neutrophil % 77.6 % (47-70); Partial Thromboplast Time 31.8 Seconds (24.1-36.2); Platelet Count 300 K/mm3 (150-450); Prothrombin Time (Protime)PT. 16.7 SECONDS (11.7-14.9); RBC Distribution Width CV 16.4 % (11.6-14.6); RBC Distribution Width SD 49.5 fl (35.1-43.9); Red Blood Count 3.93 M/mm3 (4.2-5.4); White Blood Count 10.6 K/mm3 (4.4-11.0)
[2018-06-03 08:58] LABS: POSITIVE COUNT NO; POSITIVE DIFFERENTIAL NO; POSITIVE MORPHOLOGY NO
[2018-06-03 09:10] LABS: Anion Gap 10 (5-15); BUN 73 mg/dL (7-18); BUN/Creat Ratio 30.2 RATIO (10-20); Calcium,Total 8.9 mg/dL (8.5-10.1); Chloride 105 mmol/L (98-107); Creatinine, Serum 2.42 mg/dL (0.55-1.02); EST Glomerular Filtration Rate 22 mL/min (>60); Est Glom Filt Rate - Afr Amer 26 mL/min (>60); Estimated Creatinine Clearance 24.04 ml/min; Glucose 127 mg/dL (74-106); Potassium 4.5 mmol/L (3.5-5.1); Prealbumin 18.2 mg/dL (20.0-40.0); Sodium Level 138 mmol/L (136-145)
--- NOTE | 2018-06-03 09:58 | PCM.PN.HOSP ---
Patient Problems: Active and Suspected Problems Gastroenteritis (Acute) Subjective: Complaining of abdominal cramping pain, and says that she feels like she is severely constipated even though she had a bowel movement overnight and this morning. Vitals/I&O's: Vital Signs Temp Pulse Resp BP Pulse Ox 97.8 F 97 20 H 121/66 H 93 06/03/18 07:49 06/03/18 07:49 06/03/18 07:49 06/03/18 07:49 06/03/18 08:12 Oxygen Flow Rate (L/min) 1 Oxygen Delivery Method Nasal Cannula Weight: 279 lb 15.793 oz Body Mass Index (BMI) 43.8 Intake and Output for Last 24 Hours 06/01/18 06/02/18 06/03/18 23:59 23:59 23:59 Intake Total 1860 / 1860 2043.6 / 2043.6 1477 / 1477 Output Total 2200 / 2200 2800 / 2800 1300 / 1300 Balance -340 / -340 -756.4 / -756.4 177 / 177 General: Alert, Oriented x3, Cooperative, No apparent distress HEENT: Atraumatic, EOMI, Normocephalic Oral: Moist Mucosa Neck: Supple, No JVD, Trachea Midline Lungs: Clear to auscultation, Normal air movement, No rhonchi, No wheeze, Diminished Cardiovascular: Regular rate, Regular Rhythm, Normal S1, Normal S2, No murmurs Abdomen: Soft, Non Tender, Non-Distended, No Hepato-splenomegaly Extremities: Edema Skin: - - Multiple areas of picking wounds as well as excoriations, packed abscess in her left pubis Neurological: Neuro grossly intact, Sensory exam intact to light touch and pain Psych/Mental Status: Normal Affect, Appropriate Microbiology Past 72 Hours 05/29/18 09:35 Wound Drainage - Aerobic & Anaerobic Swabs Gram Stain - Final 05/29/18 09:35 Wound Drainage - Aerobic & Anaerobic Swabs Wound Culture - Final Proteus mirabilis Proteus mirabilis#2 Corynebacterium striatum 05/29/18 09:35 Wound Drainage - Aerobic & Anaerobic Swabs Anaerobic Culture - Final Bacteroides vulgatus Bacteroides ovatus 05/28/18 14:55 Urine Catheter - Catheter Urine Culture - Final Proteus mirabilis Providencia stuartii Escherichia coli Laboratory Results 06/02/18 11:20: POC Glucose 132 H 06/02/18 17:29: POC Glucose 152 H 06/02/18 21:27: POC Glucose 169 H 06/02/18 22:45: Blood Type O POSITIVE, Antibody Screen NEGATIVE, Crossmatch See Detail 06/03/18 06:42: POC Glucose 137 H 06/03/18 08:26: WBC 10.6, RBC 3.93 L, Hgb 10.2 L, Hct 32.4 L, MCV 82.4, MCH 26.0 L, MCHC 31.5 L, RDW 16.4 H, RDW Differential 49.5 H, Plt Count 300, MPV 9.0, Immature Gran % (Auto) 0.300, Neut % (Auto) 77.6 H, Lymph % (Auto) 8.7 L, [place] % (Auto) 9.1, Eos % (Auto) 3.7, Baso % (Auto) 0.6, Absolute Neuts (auto) 8.3 H, Absolute Lymphs (auto) 0.93, Total Counted Not Reportable 06/03/18 08:26: Sodium 138, Potassium 4.5, Chloride 105, Carbon Dioxide 23.0, Anion Gap 10, BUN 73 H, Creatinine 2.42 H, Estim Creat Clear Calc 24.04, Est GFR (MDRD) Af Amer 26 L, Est GFR (MDRD) Non-Af 22 L, BUN/Creatinine Ratio 30.2 H, Glucose 127 H, Calcium 8.9, Prealbumin 18.2 L 06/03/18 08:26: PT 16.7 H, INR 1.4, APTT 31.8 Current Medications Acetaminophen (Tylenol) 650 mg PO Q6H PRN PRN PRN Reason: PAIN Acetic Acid (Acetic Acid) 0 ml IR BID [facility] Last Admin: 06/02/18 22:05 Dose: 1,000 ml Albuterol Sulfate (Ventolin Aerosols) 2.5 mg INHALATION Q6H PRN PRN PRN Reason: SOB &/OR WHEEZING Ascorbic Acid (Vitamin C) 500 mg PO BID [facility] Last Admin: 06/02/18 21:29 Dose: 500 mg Bisacodyl (Dulcolax) 10 mg RECTAL DAILY PRN PRN PRN Reason: Constipation Calcium Carbonate (Tums) 500 mg PO TIDCM [facility] Last Admin: 06/02/18 17:40 Dose: 500 mg Calcium/Vitamin D (Os-Ha 500mg + D) 1 tablet PO DAILYCM [facility] Last Admin: 06/02/18 11:25 Dose: 1 tablet Cholecalciferol (Vitamin D) 1,000 unit PO DAILY [facility] Last Admin: 06/02/18 10:18 Dose: 1,000 unit Cilostazol (Pletal) 50 mg PO BIDAC [facility] Last Admin: 06/03/18 06:40 Dose: 50 mg Diazepam (Valium) 2 mg PO Q8H [facility] Stop: 06/07/18 14:01 Last Admin: 06/03/18 06:39 Dose: 2 mg Ferrous Sulfate (Ferrous Sulfate) 325 mg PO BIDCM [facility] Last Admin: 06/02/18 17:40 Dose: 325 mg Furosemide (Lasix) 40 mg PO DAILY [facility] Last Admin: 06/02/18 11:42 Dose: Not Given Sodium Chloride () 250 mls @ 15 mls/hr IV .[id number] PRN PRN Reason: SALINE FLUSH Piperacillin Sod/Tazobactam (Sod 3.375 gm/ Sodium Chloride) 50 mls @ 12.5 mls/hr IV Q8 [facility] Last Admin: 06/03/18 07:48 Dose: 12.5 mls/hr Insulin Glargine (Lantus (Bkc)) 15 units SC QHS [facility] Last Admin: 06/02/18 21:28 Dose: 15 u Insulin Glargine (Lantus (Bkc)) 15 units SC QAM [facility] Last Admin: 06/02/18 10:19 Dose: 15 units Insulin Human Lispro (Humalog Kwikpen (Bkc)) 0 unit SC TIDAC [facility]; Protocol Last Admin: 06/03/18 06:43 Dose: Not Given Lactobacillus Acidophilus (Acidophilus) 1 tablet PO TID [facility] Last Admin: 06/03/18 06:40 Dose: 1 tablet Multivitamins ([facility]amin) [facility] Last Admin: 06/02/18 10:18 Dose: 1 tablet Nutritional Formula (Yunier - [place] Flavor) 1 packet PO BIDCM [facility] Last Admin: 06/02/18 17:40 Dose: 1 packet Nutritional Formula (Lactose Free) (Glucerna Shake) 120 ml PO 4X/DAY [facility] Last Admin: 06/02/18 21:28 Dose: 120 ml Nystatin (Mycostatin Powder) 1 applic TOPICAL BID [facility]; Protocol Last Admin: 06/02/18 22:22 Dose: Not Given Ondansetron HCl (Zofran Odt) 4 mg PO Q6H PRN PRN PRN Reason: NAUSEA Last Admin: 06/02/18 22:12 Dose: 4 mg Paroxetine HCl (Paxil) 40 mg PO DAILY [facility] Last Admin: 06/02/18 10:17 Dose: 40 mg Pravastatin Sodium (Pravachol) 10 mg PO QHS [facility] Last Admin: 06/02/18 21:28 Dose: 10 mg Pyridoxine HCl (Vitamin B-6) 100 mg PO DAILY [facility] Last Admin: 06/02/18 10:17 Dose: 100 mg Quetiapine Fumarate (Seroquel) 200 mg PO DAILY [facility] Last Admin: 06/02/18 10:18 Dose: 200 mg Sodium Chloride () 5 - 15 ml IV UD PRN PRN Reason: SALINE FLUSH Last Admin: 06/02/18 13:53 Dose: 10 ml Venlafaxine HCl (Effexor Xr) 225 mg PO DAILY [facility] Last Admin: 06/02/18 10:17 Dose: 225 mg Medical Necessity - Tobacco Use Smoking Status: Former smoker Tobacco Use: Cigarettes Assessment/Plan All Active Problems Gastroenteritis (Acute) Anemia in chronic kidney disease (Acute) Osteomyelitis of foot, right, acute (Acute) UTI (urinary tract infection) (Acute) Sepsis (Acute) Neutrophilic leukocytosis (Acute) Cellulitis of right foot (Acute) Diabetic ulcer of right foot (Acute) MSSA (methicillin susceptible Staphylococcus aureus) (Resolved) Mycotic cystitis (Resolved) Osteomyelitis (Resolved) 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 Nonhealing wound of abdominal wall with an abscess of the left pubis/chronic wounds/diarrhea -Bacterial cultures with Proteus and E. coli sensitive to Zosyn, will continue -Dr. 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 difficile given antibiotic use 2. HTN/HLD/CKD 4/chronic Shay/PVD/iron deficiency anemia -Urine culture with multiple drugs as well though this is anticipated given she has a chronic Shay -We will continue with Lasix 40 mg p.o. for edema -Blood pressures are controlled and stable -Continue with pravastatin -Continue with Pletal -Has needed blood transfusions and iron transfusions in the past, will continue with p.o. iron supplementation. 3. IDDM 2/morbid obesity -Continue with home insulin regimen as well as sliding scale insulin will monitor blood sugars -Counseled on diet and exercise for obesity 4. Anxiety/depression/personality disorder/bipolar -Currently stable -continue with Seroquel, Effexor, Valium, Paxil DVT: Will hold Eliquis in the face of possible surgery, c/w heparin Code Visit Inpatient E&M: 85200 Subs Hosp L2
--- NOTE | 2018-06-03 11:59 | CASEMGMT ---
Social Work Note Per notes, pt is scheduled to have surgery with Dr. Dillard today. Pt is not discharging today. SW placed a call to Salome at [facility] and updated her on this. SW faxed updated clinicals. Plan: Return to [facility] once medically cleared Anette Long TELEPHONE ORDER DISPATCHER, DYE BOARDING MACHINE OPERATOR
[2018-06-03 13:31] LABS: Bedside Glucose 134 mg/dL (70-110)
--- NOTE | 2018-06-03 14:30 | TISS_PTH ---
PATIENT: ALKA JENSEN LOC: [facility]3 U#:[id number] AGE/SX: 62/F ROOM: MS317 RE05/28/[address]: Dr. Milo Olvera MD : [id number] BED: 1 DIS: 06/04/2018 SPEC #: [id number] RECD: 06/04/18 09:29 STATUS: SARAH MANASA #: [id number] LAZARA: 06/03/18 14:[address]: Sb Dillard DEPT: SURGICAL PATHOLOGY RECD BY: Juvenal Velazquez ENTERED: 06/04/18 12:52 SP TYPE: Tissue Bx [facility] DR: MD Dr. Dany Sandra MD Dr. Nicholas F Kotsonis, MD Dr. Paul Nielsen, MD Tissues: Abdomen, NOS Procedures: Surgery Specimen Level IV HEADER OPERATION: Debridement abdominal wall, pubic abscess PRE-OP DIAGNOSIS: Nonhealing abdominal wall and pubic abscesses TISSUE SUBMITTED: Abdominal wall and mons pubis MICROSCOPIC DIAGNOSIS Skin and soft tissue of abdominal wall and mons pubis, excision: Ulceration with associated acute and chronic inflammation and granulation. Abscess of subcutaneous tissue with abundant bacterial colonies. AM:cherise 06/06/18 MICROSCOPIC DESCRIPTION Slides are reviewed. GROSS DESCRIPTION Received in fixative is one container labeled with the patient's name and designated abdominal wall and mons pubis. The specimen consists of an irregular fragment of elliott-pink skin with attached yellow fatty tissue measuring 18 x 14 x 5.5 cm. The cutaneous surface displays three areas of ulceration ranging in size form 3 cm to 7.5 cm. Serial sections do not reveal mass lesion. Mild Disabilities Teacher sections are submitted in three cassettes. / AM:cherise 06/05/18 TC:2 [facility]: [id number]
--- NOTE | 2018-06-03 16:22 | PCM.OPRPT ---
Report of Operation Date of Procedure: 06/03/18 Pre-Operative Diagnosis: 1. Nonhealing abdominal wall and pubic abscess ulcers. 2. Diabetes mellitus. 3. Abdominal panniculus with panniculitis. 4. Obesity. 5. Abdominal wall skin crease intertrigo. 6. UTI. 7. Anemia of chronic disease. Post-Operative Diagnosis: Same. Surgery/Procedure Performed:: 1. Surgical preparation lower anterior abdominal wall with incision and drainage and excisional debridement nonhealing abscess ulcer and skin and subcutaneous tissue for necrotizing soft tissue infection (450 cm2). 2. Surgical preparation vulva (mons pubis, left genitocrural area up to labia) with partial vulvectomy including deep subcutaneous tissue. Description of Surgical Findings:: The patient is a 62 year old F who presented to the ED on 05/28/18 because of nausea, vomiting, and diarrhea. She was started on Ciprofloxacin as she was noted to have a UTI. Initial WBC was 10.1 and is now 9.4. Initial Hgb was 8.6 and is now 8.1. Initial BUN/Creat was 43/2.7 and is now 69/2.84. Urine culture showed Proteus mirabilis, Providencia stuartii, and E. coli. She was noted to have nonhealing abdominal wall and pubic area abscess ulcers that were cultured. It showed Proteus mirabilis, Bacteroides, vulgatus, and Bacteroides ovatus. Her antibiotics have since been changed to Zosyn. Wound care was started with Acetic Acid dressing changes. CT Abdomen was done which showed kidney stones. Patient is diabetic and has a large abdominal panniculus with panniculitis that is complicating her nonhealing abscess ulcers. I was asked to evaluate this patient for surgical options for treatment. Of note is the patient has a history of chronic picking of her skin which aggravates her skin ulcers and leads to recurrent infections. Her HgbA1c was 6.0. Patient was informed of the risks and complications of the procedure including alternatives to surgery. These were discussed with the patient personally. Patient voices understanding and wishes to proceed. Size of defect lower anterior abdominal wall and mons pubis with left labial extension - 30 x 15 x 4 cm. subassembly assembler: None Type of Anesthesia:: General Specimen's removed: Nonhealing abscess ulcers lower anterior abdominal wall and mons pubis with labial extension to Pathology and Microbiology. Drains: None. Estimated Blood Loss (mL): 350 ml. Description of Procedure: Patient was taken to OR in supine position and was placed under general anesthesia. The lower anterior abdominal wall and vulval areas were prepped and draped in the usual fashion. SCD's were placed for DVT prophylaxis. Perioperative antibiotics were given intravenously. I started out in the mons pubis area where the abscess ulcer was located with incision and drainage. Some pus was seen. A lot of fat necrosis was present. The necrotizing soft tissue extended into the left genitocrural area extending up to the labial area. This necrotizing soft tissue was excised as a partial vulvectomy down into the deep subcutaneous tissue. Hemostasis was obtained with electrocautery. The wound was irrigated with saline. I then proceeded with incision and drainage of the abscess ulcer in the lower anterior abdominal wall. Some pus was seen. A lot of fat necrosis was present. The necrotizing soft tissue extended to the fascia. This necrotizing soft tissue infection in the lower anterior abdominal wall was excised. Hemostasis was obtained with electrocautery. The wound was irrigated with saline. Both wounds were combined into one larger wound as the intervening skin bridge was also excised to make the wound care a little easier with the VAC. Some of the tissue was sent to Microbiology for culture and to Pathology for analysis to rule out carcinoma. A positive culture may necessitate antibiotic modification. The size of the defect after excision of these necrotizing soft tissue infections was 30 x 15 x 4 cm. There was a fair amount of blood loss from the excision, approximately 350 ml. Will check a Hgb postop. The wound was dressed with Mepitel nonadherent dressing followed by Kerlix gauze and Betadine followed by dry Kerlix gauze and ABD pads for a compression dressing. Patient tolerated the procedure well and was sent to PACU in satisfactory condition. Patient will be sent upstairs for continued postop care. The VAC will be applied tomorrow. Grafts/Implants Used: None. - Complications None. - Admit VTE Documentation VTE Present on Admission: No VTE Mechan Device Prophylaxis: SCD's VTE Pharm Prophylaxis ordered?: Yes Code Visit Surgery Charges CPT - 64683 ICD-10 - L02.11, L98.492, M79.89, E11.9, E65, M79.3, E66.01, L30.4 91658 N76.4, N76.6, M79.89, E11.9, E66.01
--- NOTE | 2018-06-03 16:25 | OP.PCM_ITS ---
Report of Operation Date of Procedure: 06/03/18 Pre-Operative Diagnosis: 1. Nonhealing abdominal wall and pubic abscess ulcers. 2. Diabetes mellitus. 3. Abdominal panniculus with panniculitis. 4. Obesity. 5. Abdominal wall skin crease intertrigo. 6. UTI. 7. Anemia of chronic disease. Post-Operative Diagnosis: Same. Surgery/Procedure Performed:: 1. Surgical preparation lower anterior abdominal wall with incision and drainage and excisional debridement nonhealing abscess ulcer and skin and subcutaneous tissue for necrotizing soft tissue infection (450 cm2). 2. Surgical preparation vulva (mons pubis, left genitocrural area up to labia) with partial vulvectomy including deep subcutaneous tissue. Description of Surgical Findings:: The patient is a 62 year old F who presented to the ED on 05/28/18 because of nausea, vomiting, and diarrhea. She was started on Ciprofloxacin as she was noted to have a UTI. Initial WBC was 10.1 and is now 9.4. Initial Hgb was 8.6 and is now 8.1. Initial BUN/Creat was 43/2.7 and is now 69/2.84. Urine culture showed Proteus mirabilis, Providencia stuartii, and E. coli. She was noted to have nonhealing abdominal wall and pubic area abscess ulcers that were cultured. It showed Proteus mirabilis, Bacteroides, vulgatus, and Bacteroides ovatus. Her antibiotics have since been changed to Zosyn. Wound care was started with Acetic Acid dressing changes. CT Abdomen was done which showed kidney stones. Patient is diabetic and has a large abdominal panniculus with panniculitis that is complicating her nonhealing abscess ulcers. I was asked to evaluate this patient for surgical options for treatment. Of note is the patient has a history of chronic picking of her skin which aggravates her skin ulcers and leads to recurrent infections. Her HgbA1c was 6.0. Patient was informed of the risks and complications of the procedure including alternatives to surgery. These were discussed with the patient personally. Patient voices understanding and wishes to proceed. Size of defect lower anterior abdominal wall and mons pubis with left labial extension - 30 x 15 x 4 cm. tabular typist: None Type of Anesthesia:: General Specimen's removed: Nonhealing abscess ulcers lower anterior abdominal wall and mons pubis with labial extension to Pathology and Microbiology. Drains: None. Estimated Blood Loss (mL): 350 ml. Description of Procedure: Patient was taken to OR in supine position and was placed under general an esthesia. The lower anterior abdominal wall and vulval areas were prepped and draped in the usual fashion. SCD's were placed for DVT prophylaxis. Perioperative antibiotics were given intravenously. I started out in the mons pubis area where the abscess ulcer was located with incision and drainage. Some pus was seen. A lot of fat necrosis was present. The necrotizing soft tissue extended into the left genitocrural area extending up to the labial area. This necrotizing soft tissue was excised as a partial vulvectomy down into the deep subcutaneous tissue. Hemostasis was obtained with electrocautery. The wound was irrigated with saline. I then proceeded with incision and drainage of the abscess ulcer in the lower anterior abdominal wall. Some pus was seen. A lot of fat necrosis was present. The necrotizing soft tissue extended to the fascia. This necrotizing soft tissue infection in the lower anterior abdominal wall was excised. Hemostasis was obtained with electrocautery. The wound was irrigated with saline. Both wounds were combined into one larger wound as the intervening skin bridge was also excised to make the wound care a little easier with the VAC. Some of the tissue was sent to Microbiology for culture and to Pathology for analysis to rule out carcinoma. A positive culture may necessitate antibiotic modification. The size of the defect after excision of these necrotizing soft tissue infections was 30 x 15 x 4 cm. There was a fair amount of blood loss from the excision, approximately 350 ml. Will check a Hgb postop. The wound was dressed with Mepitel nonadherent dressing followed by Kerlix gauze and Betadine followed by dry Kerlix gauze and ABD pads for a compression dressing. Patient tolerated the procedure well and was sent to PACU in satisfactory condition. Patient will be sent upstairs for continued postop care. The VAC will be applied tomorrow. Grafts/Implants Used: None. - Complications None. - Admit VTE Documentation VTE Present on Admission: No VTE Mechan Device Prophylaxis: SCD's VTE Pharm Prophylaxis ordered?: Yes Code Visit Surgery Charges CPT - 53371 ICD-10 - L02.11, L98.492, M79.89, E11.9, E65, M79.3, E66.01, L30.4 19013 N76.4, N76.6, M79.89, E11.9, E66.01
[2018-06-03 16:35] LABS: Bedside Glucose 122 mg/dL (70-110)
[2018-06-03] MEDS: HYDROmorphone 1 MG/ML Syringe IV (21:43)
[2018-06-03] MEDS: Ondansetron ODT 4 MG Tablet PO (21:43)
[2018-06-03] MEDS: Pravastatin 20 MG Tablet 10 MG PO (21:43)
[2018-06-03] MEDS: Ascorbic Acid 500 MG Tablet PO (21:44)
[2018-06-03] MEDS: Glucerna Shake 120 ML LIQUID PO (21:44)
[2018-06-03] MEDS: Nystatin Powder 15gm Bottle 1 APPLIC TOPICAL (21:54)
--- NOTE | 2018-06-04 00:05 | NURSING ---
pt inc of a large amt of loose stool, abd dressing pulled off on the left side of the wound, also abd's saturaed with serous drainage wound reinforced w abd's and retaped
[2018-06-04 00:11] LABS: Bedside Glucose 232 mg/dL (70-110)
[2018-06-04 04:00] VITALS: PULSE 83; RESP 16; O2SAT 98
[2018-06-04] MEDS: diazePAM 2 MG Tablet PO ×2 (06:19→14:36)
--- NOTE | 2018-06-04 06:41 | NURSING ---
dressing fell out of the pts abd wound when turning during inc care, inc of loose stool, buttocks red and sore, excoriated open area packed with kerlex wet to dry and covered w abd pads
[2018-06-04 06:56] VITALS: O2SAT 97
[2018-06-04 07:36] LABS: Bedside Glucose 78 mg/dL (70-110)
[2018-06-04 08:10] VITALS: BP 108/69; PULSE 73; RESP 16; TEMP 36.7; O2SAT 100
[2018-06-04] MEDS: Cilostazol 50 MG Tablet PO (08:20)
[2018-06-04] MEDS: Multivitamins,Therapeutic Tablet 1 TABLET PO (08:20)
[2018-06-04] MEDS: Ferrous Sulfate 325 MG Tablet PO (08:20)
[2018-06-04] MEDS: Calcium Carb/Vitamin D 1 TABLET Tablet PO (08:21)
[2018-06-04] MEDS: Venlafaxine XR 75 MG Capsule 225 MG PO (08:22)
--- NOTE | 2018-06-04 09:26 | PCM.TXEXTCAR ---
- Diet 06/03/18 16:40 Diet: Regular Diet Is pt able to select menu?: No - Routine Orders/Code Status Code Status: Full Code - Wound(s) Left Lower abdomen Wound Type: open wound s/p I&D cyst Dressing Change: acetic acid moistened gauze left lower abodomen #2 Wound Type: scabbed over wound from picking Left ABD fold Wound Type: Scabbed over ABD fold with small open area Right ABD Wound Type: Several scabbed and open areas abdomen (generalized) Wound Type: scattered open areas from chronic picking Dressing Change: Adaptic abdomen/pubis Wound Type: Surgical Incision - Therapies Physical Therapy: Eval and Treat Occupational Therapy: Eval and Treat - Allergies/Procedures Done in Hospital Allergies/Adverse Reactions: Allergies adhesive Allergy (Verified 05/28/18 12:50) Rash cefadroxil hydrate [From Duricef] Allergy (Verified 05/28/18 12:50) Rash cephalexin monohydrate [From Keflex] Allergy (Verified 05/28/18 12:50) Rash venom-honey bee [bee venom (honey bee)] Allergy (Verified 05/28/18 12:50) Rash - Type of Care/Length of Stay Estimated LOS: More Than 30 Days Type of Care Needed: Skilled Rehab Potential: Good Prognosis: Good - Additional Orders/Day of Discharge Day of Discharge: 06/04/18 - Dietary and Speech Recommendations Dietitian Recommendations/Changes: Continue 1800 calorie, cardiac diet. Continue Yunier 1 packet BID and ONS medpass for wound healing. - Follow Up Care Primary Care Physician: Leroy Marie MD [Primary Care Provider] - Please follow up with your Primary Care Physician in: 3-5 days
--- NOTE | 2018-06-04 09:30 | PCM.DC.SUM ---
Discharge Date and Diagnosis - Problem List Patient Problems: Active and Suspected Problems Gastroenteritis (Acute) Date of Admission: 05/28/18 Date of Discharge: 06/04/18 - Primary Discharge Diagnosis Active and Suspected Problems Gastroenteritis (Acute) - Secondary Discharge Diagnosis Chronic Problems Iron deficiency anemia (Chronic) Chronic respiratory failure with hypoxia (Chronic) Type 2 diabetes mellitus with diabetic polyneuropathy (Chronic) History of tobacco abuse (Chronic) HLD (hyperlipidemia) (Chronic) HTN (hypertension) (Chronic) Morbid obesity (Chronic) bmi 46 Noncompliance (Chronic) with diabetic therapy Personality disorder (Chronic) History of self-harm (Chronic) scratching and picking Self neglect (Chronic) Type 2 diabetes mellitus (Chronic) Bipolar disorder (Chronic) Anxiety (Chronic) 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 Extensive right urinary tract calculi (central right kidney/near staghorn, distal right ureter, urinary bladder) with mild hydroureter. 2. Nonobstructing left renal calculi. 3. Simple left renal cyst. 4. Fecal retention including rectal vault. 5. Atelectasis in the lung bases. Soft Tissue US: IMPRESSION: Exam limited by patient size. No definite abscess or focal fluid collection. Note that the CT scan also does not show focal fluid collection. Consultations 05/28/18 16:27 Consult: Onc/Wound/head of sales and marketing Routine Comment: Surgery Operations: None Procedures: None Summary of Care Provided: Per HPI: The patient is a 62 year old F with pmhx of multidrug resistant UTI, DMt2, chronic iron def. 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 She was recently here for a UTI at that time with multiple resistances, she was treated with Unasyn per ID with transition to augmentin at [place]. She has had N/V/D multiple times daily since saturday. She feels vertigo described as the room spinning. She has a chronic catheter as noted above, she cannot remember when it was last changed. She does appear to have a UTI per her UA also suprapubic abdominal pain. No fevers or chills. No cough or SOB. On chronic O2 with no increased demand. She was given cipro in the ER however noting past resistance to it will switch to unasyn at admission and wait for cultures. Hospital Course: 1. Viral gastroenteritis/nonhealing wound of abdominal wall with an abscess of the left pubis/chronic [id number]-old female who is a resident at home presenting with initially nausea, vomiting and diarrhea. She was found to have multiple excoriations over her arms legs and abdomen secondary to her picking. But she was also found to have an area of redness in her left pubis was evaluated by surgery and she was taken to the operating room yesterday for debridement and washout. She will need to have a wound VAC placed. Of note she is has a history of multiple urinary tract infections with multidrug-resistant, her Salgado is chronic and therefore not necessarily needing to be treated and when she is symptomatic. However she is growing similar organisms in her pubic abscess as she is in her urine and is unsure as to which one colonized the other. She was initially started on Unasyn and Cipro though 1 of the organisms that she is growing is found to be resistant to both of those antibiotics therefore she was transitioned to Zosyn and will need another 6 days of IV Zosyn to complete therapy. She will have a PICC line placed today prior to discharge to the facility. 2. HTN/HLD/CKD 4/chronic Salgado/PVD/iron deficiency anemia-she was continued on all of her home medications during her stay, she was started on Lasix because of edema given the IV fluids she had received. She is currently only 3 L positive and denies any shortness of breath therefore her Lasix was discontinued given her renal failure and can be restarted at the intermediate as needed. She also has a history of iron deficiency anemia and she was given a dose of iron sucrose while she was here, generally she is to go to Dr. Bill office where she gets it however they were notified that it was given here so any further doses should be confirmed with Dr. Topete's office. 3. Her other medical diagnoses were evaluated and her home medications were continued where appropriate Patient Problems: Active and Suspected Problems Gastroenteritis (Acute) Objective: General: Alert, Oriented x3, Cooperative, No apparent distress HEENT: Atraumatic, EOMI, Normocephalic Oral: Moist Mucosa Neck: Supple, No JVD, Trachea Midline Lungs: Clear to auscultation, Normal air movement, No rhonchi, No wheeze, Diminished Cardiovascular: Regular rate, Regular Rhythm, Normal S1, Normal S2, No murmurs Abdomen: Soft, Non Tender, Non-Distended, No Hepato-splenomegaly Extremities: Edema Skin: - - Multiple areas of picking wounds as well as excoriations, Incision dressing in place Neurological: Neuro grossly intact, Sensory exam intact to light touch and pain Psych/Mental Status: Normal Affect, Appropriate - Physical Exam Vital Signs Temp Pulse Resp BP Pulse Ox 98.6 F 83 16 108/60 97 06/03/18 21:27 06/04/18 04:00 06/04/18 04:00 06/03/18 21:27 06/04/18 06:56 Oxygen Flow Rate (L/min) 2 Oxygen Delivery Method Nasal Cannula Weight: 279 lb 15.793 oz Body Mass Index (BMI) 43.8 Finger Stick Blood Glucose 122 Intake and Output for Last 24 Hours 06/02/18 06/03/18 06/04/18 23:59 23:59 23:59 Intake Total 2043.6 / 2043.6 2197 / 2197 Output Total 2800 / 2800 1999 / 1999 550 / 550 Balance -756.4 / -756.4 197 / 197 -550 / -550 Microbiology Past 72 Hours 05/29/18 09:35 Gram Stain - Final Wound Drainage - Aerobic & Anaerobic Swabs Wound Culture - Final Proteus mirabilis Proteus mirabilis#2 Corynebacterium striatum Anaerobic Culture - Final Bacteroides vulgatus Bacteroides ovatus POC Glucose 06/04/18 06/03/18 06/03/18 07:18 21:54 16:30 POC Glucose 78 232 H 122 H 06/03/18 13:25 POC Glucose 134 H Home Medications: Medications to take at Discharge Apixaban [Eliquis] 5 mg PO BID 05/28/18 Ascorbic Acid [Vitamin C] 500 mg PO BID 05/28/18 Calcium Carbonate [Tums] 500 mg PO TIDCM 05/28/18 Calcium Carbonate/Vitamin D3 [Calcium 600-Vit D3 200 Tablet] 1 each PO BID 05/28/18 Cholecalciferol (VIT D3) [Vitamin D3] 2,000 unit PO DAILY 05/28/18 Cilostazol [Pletal] 50 mg PO BIDAC 05/28/18 Ferrous Sulfate 325 mg PO BID 05/28/18 Hydroxyzine Pamoate [Vistaril] 50 mg PO QHS 05/28/18 Insulin Glargine,Hum.rec.anlog [Basaglar Kwikpen U-100] 30 unit SQ BID 05/28/18 Lactobacillus Acidophilus [Acidophilus] 1 each PO DAILY 05/28/18 Loperamide HCl [Imodium A-D] 4 mg PO PRN PRN 05/28/18 Meclizine HCl 25 mg PO PRN PRN 05/28/18 Multivitamin [Multivitamins] 1 each PO DAILY 05/28/18 Paroxetine HCl [Paxil] 40 mg PO DAILY 05/28/18 Pravastatin Sodium 10 mg PO DAILY 05/28/18 Pyridoxine HCl [Vitamin B6] 100 mg PO DAILY 05/28/18 Quetiapine Fumarate [Seroquel] 200 mg PO DAILY 05/28/18 Venlafaxine HCl [Venlafaxine HCl ER] 225 mg PO DAILY 05/28/18 hydrOXYzine pamoate capsule [Vistaril pamoate capsule] 25 mg PO DAILY 05/28/18 Bisacodyl [Dulcolax] 10 mg RECTAL DAILY PRN PRN suppos. 06/04/18 Piperacil/Tazobactam [Zosyn] 3.375 gm IV Q8 6 Days vial 06/04/18 Primary Care Physician: Leroy Marie MD [Primary Care Provider] - Please follow up with your Primary Care Physician in: 3-5 days Disposition: Care Home facility Minutes spent on discharge:: 35 Patient Condition:: Stable Medical Necessity - Tobacco Use Smoking Status: Former smoker Tobacco Use: Cigarettes Meaningful Use Info Meaningful Use Diagnoses (Choose all that apply): None applicable Code Visit Inpatient E&M: 29518 Disch Hosp
--- NOTE | 2018-06-04 09:43 | DS.PCM_ITS ---
Discharge Date and Diagnosis - Problem List Patient Problems: Active and Suspected Problems Gastroenteritis (Acute) Date of Admission: 05/28/18 Date of Discharge: 06/04/18 - Primary Discharge Diagnosis Active and Suspected Problems Gastroenteritis (Acute) - Secondary Discharge Diagnosis Chronic Problems Iron deficiency anemia (Chronic) Chronic respiratory failure with hypoxia (Chronic) Type 2 diabetes mellitus with diabetic polyneuropathy (Chronic) History of tobacco abuse (Chronic) HLD (hyperlipidemia) (Chronic) HTN (hypertension) (Chronic) Morbid obesity (Chronic) bmi 46 Noncompliance (Chronic) with diabetic therapy Personality disorder (Chronic) History of self-harm (Chronic) scratching and picking Self neglect (Chronic) Type 2 diabetes mellitus (Chronic) Bipolar disorder (Chronic) Anxiety (Chronic) 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 Extensive right urinary tract calculi (central right kidney/near staghorn, distal right ureter, urinary bladder) with mild hydroureter. 2. Nonobstructing left renal calculi. 3. Simple left renal cyst. 4. Fecal retention including rectal vault. 5. Atelectasis in the lung bases. Soft Tissue US: IMPRESSION: Exam limited by patient size. No definite abscess or focal fluid collection. Note that the CT scan also does not show focal fluid collection. Consultations 05/28/18 16:27 Consult: Onc/Wound/dock clerk Routine Comment: Surgery Operations: None Procedures: None Summary of Care Provided: Per HPI: The patient is a 62 year old F with pmhx of multidrug resistant UTI, DMt2, chronic iron def. 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 She was recently here for a UTI at that time with multiple resistances, she was treated with Unasyn per ID with transition to augmentin at [place]. She has had N/V/D multiple times daily since saturday. She feels vertigo described as the room spinning. She has a chronic catheter as noted above, she cannot remember when it was last changed. She does appear to have a UTI per her UA also suprapubic abdominal pain. No fevers or chills. No cough or SOB. On chronic O2 with no increased demand. She was given cipro in the ER however noting past resistance to it will switch to unasyn at admission and wait for cultures. Hospital Course: 1. Viral gastroenteritis/nonhealing wound of abdominal wall with an abscess of the left pubis/chronic [id number]-old female who is a resident at home presenting with initially nausea, vomiting and diarrhea. She was found to have multiple excoriations over her arms legs and abdomen secondary to her picking. But she was also found to have an area of redness in her left pubis was evaluated by surgery and she was taken to the operating room yesterday for debridement and washout. She will need to have a wound VAC placed. Of note she is has a history of multiple urinary tract infections with multidrug-resistant, her Salgado is chronic and therefore not necessarily needing to be treated and when she is symptomatic. However she is growing similar organisms in her pubic abscess as she is in her urine and is unsure as to which one colonized the other. She was initially started on Unasyn and Cipro though 1 of the organisms that she is growing is found to be resistant to both of those antibiotics therefore she was transitioned to Zosyn and will need another 6 days of IV Zosyn to complete therapy. She will have a PICC line placed today prior to discharge to the facility. 2. HTN/HLD/CKD 4/chronic Salgado/PVD/iron deficiency anemia-she was continued on all of her home medications during her stay, she was started on Lasix because of edema given the IV fluids she had received. She is currently only 3 L positive and denies any shortness of breath therefore her Lasix was discontinued given her renal failure and can be restarted at the long term as needed. She also has a history of iron deficiency anemia and she was given a dose of iron sucrose while she was here, generally she is to go to Dr. Bill office where she gets it however they were notified that it was given here so any further doses should be confirmed with Dr. Topete's office. 3. Her other medical diagnoses were evaluated and her home medications were continued where appropriate Patient Problems: Active and Suspected Problems Gastroenteritis (Acute) Objective: General: Alert, Oriented x3, Cooperative, No apparent distress HEENT: Atraumatic, EOMI, Normocephalic Oral: Moist Mucosa Neck: Supple, No JVD, Trachea Midline Lungs: Clear to auscultation, Normal air movement, No rhonchi, No wheeze, Diminished Cardiovascular: Regular rate, Regular Rhythm, Normal S1, Normal S2, No murmurs Abdomen: Soft, Non Tender, Non-Distended, No Hepato-splenomegaly Extremities: Edema Skin: - - Multiple areas of picking wounds as well as excoriations, Incision dressing in place Neurological: Neuro grossly intact, Sensory exam intact to light touch and pain Psych/Mental Status: Normal Affect, Appropriate - Physical Exam Vital Signs Temp Pulse Resp BP Pulse Ox 98.6 F 83 16 108/60 97 06/03/18 21:27 06/04/18 04:00 06/04/18 04:00 06/03/18 21:27 06/04/18 06:56 Oxygen Flow Rate (L/min) 2 Oxygen Delivery Method Nasal Cannula Weight: 279 lb 15.793 oz Body Mass Index (BMI) 43.8 Finger Stick Blood Glucose 122 Intake and Output for Last 24 Hours 06/02/18 06/03/18 06/04/18 23:59 23:59 23:59 Intake Total 2043.6 / 2043.6 2197 / 2197 Output Total 2800 / 2800 1999 / 1999 550 / 550 Balance -756.4 / -756.4 197 / 197 -550 / -550 Microbiology Past 72 Hours 05/29/18 09:35 Gram Stain - Final Wound Drainage - Aerobic & Anaerobic Swabs Wound Culture - Final Proteus mirabilis Proteus mirabilis#2 Corynebacterium striatum Anaerobic Culture - Final Bacteroides vulgatus Bacteroides ovatus POC Glucose 06/04/18 06/03/18 06/03/18 07:18 21:54 16:30 POC Glucose 78 232 H 122 H 06/03/18 13:25 POC Glucose 134 H Home Medications: Medications to take at Discharge Apixaban [Eliquis] 5 mg PO BID 05/28/18 Ascorbic Acid [Vitamin C] 500 mg PO BID 05/28/18 Calcium Carbonate [Tums] 500 mg PO TIDCM 05/28/18 Calcium Carbonate/Vitamin D3 [Calcium 600-Vit D3 200 Tablet] 1 each PO BID 05/28/18 Cholecalciferol (VIT D3) [Vitamin D3] 2,000 unit PO DAILY 05/28/18 Cilostazol [Pletal] 50 mg PO BIDAC 05/28/18 Ferrous Sulfate 325 mg PO BID 05/28/18 Hydroxyzine Pamoate [Vistaril] 50 mg PO QHS 05/28/18 Insulin Glargine,Hum.rec.anlog [Basaglar Kwikpen U-100] 30 unit SQ BID 05/28/18 Lactobacillus Acidophilus [Acidophilus] 1 each PO DAILY 05/28/18 Loperamide HCl [Imodium A-D] 4 mg PO PRN PRN 05/28/18 Meclizine HCl 25 mg PO PRN PRN 05/28/18 Multivitamin [Multivitamins] 1 each PO DAILY 05/28/18 Paroxetine HCl [Paxil] 40 mg PO DAILY 05/28/18 Pravastatin Sodium 10 mg PO DAILY 05/28/18 Pyridoxine HCl [Vitamin B6] 100 mg PO DAILY 05/28/18 Quetiapine Fumarate [Seroquel] 200 mg PO DAILY 05/28/18 Venlafaxine HCl [Venlafaxine HCl ER] 225 mg PO DAILY 05/28/18 hydrOXYzine pamoate capsule [Vistaril pamoate capsule] 25 mg PO DAILY 05/28/18 Bisacodyl [Dulcolax] 10 mg RECTAL DAILY PRN PRN suppos. 06/04/18 Piperacil/Tazobactam [Zosyn] 3.375 gm IV Q8 6 Days vial 06/04/18 Primary Care Physician: Leroy Marie MD [Primary Care Provider] - Please follow up with your Primary Care Physician in: 3-5 days Disposition: Long-Term facility Minutes spent on discharge:: 35 Patient Condition:: Stable Medical Necessity - Tobacco Use Smoking Status: Former smoker Tobacco Use: Cigarettes Meaningful Use Info Meaningful Use Diagnoses (Choose all that apply): None applicable Code Visit Inpatient E&M: 38893 Disch Hosp
[2018-06-04] MEDS: QUEtiapine 100 MG Tablet 200 MG PO (10:38)
[2018-06-04] MEDS: Pyridoxine HCl 50 MG Tablet 100 MG PO (10:38)
[2018-06-04] MEDS: Ascorbic Acid 500 MG Tablet PO (10:39)
[2018-06-04] MEDS: Furosemide 40 MG Tablet PO (10:39)
[2018-06-04] MEDS: Paroxetine 20 MG Tablet 40 MG PO (10:40)
[2018-06-04] MEDS: Glucerna Shake 120 ML LIQUID PO ×2 (10:41→14:36)
--- NOTE | 2018-06-04 11:04 | CASEMGMT ---
Social Work Note Pt is able to discharge today. Pt is scheduled to have PICC line placed today and will be able to discharge once PICC line is placed. SW placed a call to Salome at [facility] and updated her that pt will be getting wound vac, PICC Line and IV Zosyn at discharge and will be discharged today once PICC line is placed. SW to arrange for discharge once PICC Line is placed. Plan: Discharge to [facility] today Anette Long CARTON CATCHER, HOOKER LASTER
--- NOTE | 2018-06-04 11:50 | NURSING ---
manager biologics called, RN will be here between [phone] for PICC line placement.
--- NOTE | 2018-06-04 12:06 | NURSING ---
wound photo: left lower abdomen
--- NOTE | 2018-06-04 12:07 | NURSING ---
wound photo: abdomen
[2018-06-04 12:26] LABS: Bedside Glucose 116 mg/dL (70-110)
--- NOTE | 2018-06-04 13:48 | CASEMGMT ---
Social Work Note SW faxed Wound vac information, DR. Dillard operative report and Wound Nurse documentation to [facility]. STEPHAN will fax PICC line information when available. Anette Long EDUCATIONAL ADVISER, FIRER WATERTENDER
[2018-06-04 14:13] LABS: Hematocrit 30.3 % (37-47); Hemoglobin 9.3 g/dl (12.0-15.0); Mean Corp Hgb Conc 30.7 g/gl (32-36); Mean Corpuscular Hgb 26.1 pg (27.0-32.0); Mean Corpuscular Volume 85.1 fL (81-99); Mean Platelet Vol. 9.4 fl (6.2-12.0); Platelet Count 292 K/mm3 (150-450); RBC Distribution Width CV 16.6 % (11.6-14.6); Red Blood Count 3.56 M/mm3 (4.2-5.4)
[2018-06-04 14:16] LABS: Scan Indicated on CBC? Y/N NO
[2018-06-04 14:30] VITALS: BP 99/55; PULSE 95; RESP 18; TEMP 36.6; O2SAT 96
--- NOTE | 2018-06-04 14:30 | CASEMGMT ---
Social Work Note PICC Line has been placed. STEPHAN spoke with RN who confirms pt is medically able to discharge. STEHPAN faxed completed discharge paperwork to Salome at [facility] including transfer to extended care facility, signed medication list and any scripts. Originals in SNF folder and copy on pt's chart. STEPHAN completed [facility] in [place]. Original in SNF folder and copy on pt's chart. STEPHAN arranged transportation through [facility] via cot for 15:30pm. Transportation form on SNF folder and copy on pt's chart. This worker did inform [facility] that pt is 279 pounds when arranging transportation. RN, pt and Salome at [facility] updated on discharge time. Pt denied wanting this worker to call any family or friends of her discharge. At 15:00 this worker received call from Vargas at [facility] stating he wasn't made aware that pt is 300+ pounds. STEPHAN informed Vargas that when this worker arranged for transportation, this worker informed the dispatcher of pt's weight. Vargas states that pt will need bariatric cot and will need additional grapple crew leader and won't be able to hop picker pt till around 18:00. RN, pt and Salome at [facility] updated on different transportation time. Plan: Pt to discharge to [facility] with [facility] transportation via cot at 18:00 Anette Long MSW, SHOE STICKS REPAIRER
[2018-06-04] MEDS: Menthol/Lanolin/Calamine/Znox 113 GM Tube 1 APPLIC TOPICAL (14:36)
--- NOTE | 2018-06-04 15:23 | NURSING ---
report called to Lucy Hermosillo
[2018-06-04 18:06] LABS: Bedside Glucose 149 mg/dL (70-110)
== END 2018-06-04 18:04 | disposition skilled nursing facility (03) | DRG 357 ==
LOC: ED 14:02 → MS2 16:31 → MS3 06-03 16:40
PROVIDERS: Anesthesiology; Internal Medicine; Physician Assistant; Surgery; Admitting Provider Family Medicine; Emergency Provider Emergency Medicine; Family Provider Family Medicine; PCP Family Medicine; Referring Provider Family Medicine; Visit Provider Family Medicine
PROC: 0JB80ZZ Excision of Abdomen Subcutaneous Tissue and Fascia, Open Approach (ICD-10-PCS; principal; 2018-06-03 14:20)
DX: A08.4 Viral intestinal infection, unspecified (principal); T83.511A Infection and inflammatory reaction due to indwelling urethral catheter, initial encounter; L02.215 Cutaneous abscess of perineum; L02.211 Cutaneous abscess of abdominal wall; J96.11 Chronic respiratory failure with hypoxia; Z68.41 Body mass index [BMI] 40.0-44.9, adult; N39.0 Urinary tract infection, site not specified; N18.4 Chronic kidney disease, stage 4 (severe); Z74.01 Bed confinement status; D50.9 Iron deficiency anemia, unspecified; E66.01 Morbid (severe) obesity due to excess calories; E11.42 Type 2 diabetes mellitus with diabetic polyneuropathy; R53.81 Other malaise; F31.9 Bipolar disorder, unspecified; Z99.81 Dependence on supplemental oxygen; M79.3 Panniculitis, unspecified; L30.4 Erythema intertrigo; I12.9 Hypertensive chronic kidney disease with stage 1 through stage 4 chronic kidney disease, or unspecified chronic kidney disease; E11.22 Type 2 diabetes mellitus with diabetic chronic kidney disease; I73.9 Peripheral vascular disease, unspecified; E78.5 Hyperlipidemia, unspecified; Z79.4 Long term (current) use of insulin; Z87.891 Personal history of nicotine dependence; Z87.440 Personal history of urinary (tract) infections; Z91.5 Personal history of self-harm; F41.9 Anxiety disorder, unspecified
CPT/HCPCS: 36415; 36569; 74176; 76999; 80048; 80053; 81001; 82962; 83036; 83605; 83690; 83735; 84100; 84134; 84484; 85025; 85027; 85610; 85730; 86850; 86900; 86920; 86921; 86922; 87070; 87075; 87077; 87086; 87102; 87186; 87205; 87206; 87493; 87506; 87640; 88305; 93005; 97802; 99285; J1756; J7030; J7040; P9016; P9040; A4216; J0290; J0744; J2405; J7799

== ENCOUNTER 2018-06-10 09:21 | Inpatient (IN) | payer MEDICARE, MEDICAID, SELFPAY ==
[2018-06-03 11:38] VITALS: BMI 43.8
[2018-06-10] VITALS (9 sets, daily range): BP systolic 113–127; BP diastolic 72–88; PULSE 89–100; RESP 15–224; TEMP 36.1–36.9; O2SAT 92–99; BMI 52.6; BMI 52.7
--- NOTE | 2018-06-10 09:33 | RAD_ITS ---
STUDY: X-RAY - ABDOMEN/PELVIS REASON FOR EXAM: Female, 62 years old. NG tube placement. TECHNIQUE: Two AP supine views of the abdomen and pelvis. COMPARISON: None. FINDINGS: Normal visualized lung bases. The tip of the nasogastric tube is in the distal portion of the stomach. RAD/Abdomen Single View (Portable) IMPRESSION: The tip of the nasogastric tube is in the distal portion of the stomach. Electronically Signed: Abdirizak Courtney, at 11:54 EDT , Service support ,
--- NOTE | 2018-06-10 09:43 | ED.VISSUMM ---
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 She presents from a group home facility today after vomiting coffee-ground emesis multiple times and having diarrhea as well. Physical Examination: She is in moderate distress. Mucous membranes are dry. There is dried dark emesis on her face. Neck is supple. She is tachycardic. Abdomen reveals multiple scars and excoriations but is nontender. Test Results: Her hemoglobin has dropped since her last visit. Thick acid within normal limits. Chemistries fairly unremarkable Emergency Department Course and Treatment: She is having coffee-ground emesis. Hemoglobin has dropped slightly. She did not take any of her anxiety medications so she did ask for anxiety medication here. She was given 2 mg of Versed intravenously. NG tube was placed. She had 4-500 cc of dark emesis in the suction canister that was Gastroccult positive. She has no localized abdominal tenderness and no evidence of necrotizing fasciitis. I discussed the case with Dr. Cueva who recommended holding her anticoagulants for 24-48 hours prior to endoscopy. Vital signs have remained within normal limits. I do feel she meets criteria for full admission. I spoke with the hospitalist and she was admitted to the PCU. Treatment Plan: Admit to PCU Disposition: Full admission Impression: Initial encounter acute upper GI bleed This note was generated with [employer] dictation software. It may contain incorrect words, spelling, and punctuation that were not noted in review of the chart prior to signing ED Disposition - Plan for ED Patient:
[2018-06-10] MEDS: 0.9% Normal Saline 1,000 ML 1000 ML IV (10:10)
[2018-06-10] MEDS: Ondansetron 4 MG/2 ML Vial IV (10:10)
[2018-06-10] MEDS: Midazolam 2 MG/2 ML Syringe IV (10:15)
[2018-06-10 10:42] LABS: Absolute Lymphocyte Count 0.69 X10^3/ul (0.83-4.51); Absolute Neutrophil Count 19.8 X10^3/uL (2.0-7.7); Basophil# 0.05 X10^3/uL; Basophil% 0.2 % (0-1); Eosinophil# 0.03 X10^3/uL; Eosinophils% 0.1 % (0-5); Hematocrit 27.2 % (37-47); Hemoglobin 8.6 g/dl (12.0-15.0); Lymphocyte # 0.69 X10^3/ul (4.0); Lymphocyte % 3.2 % (19-41); Mean Corp Hgb Conc 31.6 g/gl (32-36); Mean Corpuscular Hgb 26.3 pg (27.0-32.0); Mean Corpuscular Volume 83.2 fL (81-99); Mean Platelet Vol. 9.2 fl (6.2-12.0); Monocyte# 0.69 X10^3/uL; Monocyte% 3.2 % (0-10); Neutrophil % 92.9 % (47-70); Platelet Count 332 K/mm3 (150-450); RBC Distribution Width CV 17.4 % (11.6-14.6); RBC Distribution Width SD 53.3 fl (35.1-43.9); Red Blood Count 3.27 M/mm3 (4.2-5.4); White Blood Count 21.3 K/mm3 (4.4-11.0)
[2018-06-10 10:43] LABS: POSITIVE COUNT NO; POSITIVE DIFFERENTIAL NO; POSITIVE MORPHOLOGY NO
[2018-06-10 10:46] LABS: Mucous, Urine 0 SEEN /hpf (<or=2+)
[2018-06-10 10:51] LABS: International Normalized Ratio 1.6; Prothrombin Time (Protime)PT. 18.9 SECONDS (11.7-14.9)
[2018-06-10 10:54] LABS: AST(SGOT) 14 U/L (15-37); Alanine Aminotransfer ALT/SGPT 23 U/L (13-56); Albumin, Serum 1.9 g/dL (3.2-5.0); Alkaline Phosphatase 114 U/L (45-117); Anion Gap 16 (5-15); BUN 44 mg/dL (7-18); Bilirubin, Direct 0.13 mg/dL (0.00-0.30); Calcium,Total 8.6 mg/dL (8.5-10.1); Chloride 107 mmol/L (98-107); EST Glomerular Filtration Rate 24 mL/min (>60); Est Glom Filt Rate - Afr Amer 29 mL/min (>60); Estimated Creatinine Clearance 22.49 ml/min; Globulin 4.8 g/dL (2.2-4.2); Glucose 191 mg/dL (74-106); Lipase 45 U/L (73-393); Potassium 3.6 mmol/L (3.5-5.1); Protein, Total 6.7 g/dL (6.4-8.2); Sodium Level 142 mmol/L (136-145)
[2018-06-10 10:56] LABS: Color, Urine Yellow (Yellow); Glucose, Dipstick Normal (Normal); Ketone-Dipstick 15 mg/dl (Negative); Leukocyte Esterase-Dipstick 500 /ul (Negative); Nitrite-Dipstick Negative (Negative); Occult Blood-Urine 50 /ul (Negative); Protein-Dipstick 100 mg/dl (Negative); Specific Gravity, Urine 1.025 (1.002-1.030); Urine Bilirubin Dipstick Negative (Negative); Urine Clarity Sl. Cloudy (Clear); Urine Urobilinogen Normal (Normal)
[2018-06-10 11:13] LABS: Amorphous Sediment 1+; Bacteria 1+ /hpf (None Seen); Red Blood Cells-Urine 0-5 SEEN /hpf (0-5); White Blood Cells 25-50 SEEN /hpf (0-5)
[2018-06-10 11:14] LABS: Squamous Epithelial Cells - UA 0-5 SEEN /hpf (5-10)
[2018-06-10] MEDS: Morphine 4 MG/ML Syringe IV (11:59)
[2018-06-10 12:29] LABS: Lactic Acid 1.2 mmol/L (0.4-2.0)
--- NOTE | 2018-06-10 13:35 | CM.ED ---
Social Work Note Attempted to see pt twice. Staff in providing care. Pt to be sent to floor shortly and requesting that admitting physician hurry up so she can go to my room. Pt is from [facility] locally. SW on assigned unit to assist with discharge planning. Kayley Cruz, WRINGER OPERATOR, [place]
--- NOTE | 2018-06-10 14:02 | HP.PCM_ITS ---
Problem List (1) GI bleed Status: Acute (2) Necrotizing soft tissue infection Status: Acute (3) Intertrigo Status: Chronic Comment: abdominal wall skin crease intertrigo (4) Panniculitis Status: Chronic (5) Abdominal panniculus Status: Chronic (6) Ulcer of abdomen wall with fat layer exposed Status: Acute (7) Abdominal wall abscess Status: Acute (8) Ulceration, vulva Status: Acute (9) Vulvar abscess Status: Acute (10) Iron deficiency anemia Status: Chronic (11) Chronic respiratory failure with hypoxia Status: Chronic (12) Gastroenteritis Status: Acute (13) Anemia in chronic kidney disease Status: Acute Qualifiers: (14) Osteomyelitis of foot, right, acute Status: Acute (15) UTI (urinary tract infection) Status: Acute (16) Sepsis Status: Acute (17) Neutrophilic leukocytosis Status: Acute (18) Cellulitis of right foot Status: Acute (19) Type 2 diabetes mellitus with diabetic polyneuropathy Status: Chronic (20) Diabetic ulcer of right foot Status: Acute (21) History of tobacco abuse Status: Chronic (22) HLD (hyperlipidemia) Status: Chronic (23) HTN (hypertension) Status: Chronic (24) Morbid obesity Status: Chronic Comment: bmi 46 (25) Noncompliance Status: Chronic Comment: with diabetic therapy (26) Personality disorder Status: Chronic (27) History of self-harm Status: Chronic Comment: scratching and picking (28) Self neglect Status: Chronic (29) Type 2 diabetes mellitus Status: Chronic (30) Bipolar disorder Status: Chronic (31) Anxiety Status: Chronic (32) CKD stage 3 secondary to diabetes Status: Chronic (33) Type 2 diabetes mellitus with diabetic polyneuropathy Status: Chronic History of Present Illness Date of Admission: 06/10/18 Chief Complaint: GI bleed The patient is a 62 year old F with multiple comorbidities with recent hospitalization from 05/28/2018 to 06/04/2018 for nonhealing wound infection of abdominal wall with abscess of mons pubis and vulva status post abdominal wound debridement and partial vulvectomy was sent from half-way for coffee ground emesis multiple times and diarrhea for few days. Patient does not remember her color of the stool but she is on iron tablet. She has been vomiting for a few days and her H&H was low in [facility]. H&H 7.7/24.1 from 05/05/2018 until 05/12/2018. As per the patient, she was transfused PRBC and had iron infusion there. In ED, heart rate was 100/min, blood pressure 116/88, pulse ox 96% on room air. NG tube was placed. There is also dried dark emesis formed on the face. NG tube was placed. H&H are 8.6/27.2. Patient has leukocytosis 21.3 thousand, last 1 11,000 on 06/04. Patient is on IV Zosyn every 8 hourly at the time of discharge on 06/04 and and completion date today 06/10. Patient has a scar in the abdominal wall of chronic nonhealing wound and dressing in mid abdomen pelvic region. Patient also has chronic indwelling Salgado catheter with pus flecks. She has left BKA. Patient is also on Eliquis. [] Past Medical History Past Medical History (Chronic Problems): Chronic Problems Intertrigo (Chronic) abdominal wall skin crease intertrigo Panniculitis (Chronic) Abdominal panniculus (Chronic) Iron deficiency anemia (Chronic) Chronic respiratory failure with hypoxia (Chronic) Type 2 diabetes mellitus with diabetic polyneuropathy (Chronic) History of tobacco abuse (Chronic) HLD (hyperlipidemia) (Chronic) HTN (hypertension) (Chronic) Morbid obesity (Chronic) bmi 46 Noncompliance (Chronic) with diabetic therapy Personality disorder (Chronic) History of self-harm (Chronic) scratching and picking Self neglect (Chronic) Type 2 diabetes mellitus (Chronic) Bipolar disorder (Chronic) Anxiety (Chronic) 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 2 diabetes mellitus with diabetic polyneuropathy (Chronic) Allergies adhesive Allergy (Verified 06/10/18 10:52) Rash cefadroxil hydrate [From Duricef] Allergy (Verified 06/10/18 10:52) Rash cephalexin monohydrate [From Keflex] Allergy (Verified 06/10/18 10:52) Rash venom-honey bee [bee venom (honey bee)] Allergy (Verified 06/10/18 10:52) Rash Home Medications: Ambulatory Orders Medication Instructions Recorded Apixaban [Eliquis] 5 mg PO BID 05/28/18 Ascorbic Acid [Vitamin C] 500 mg PO BID 05/28/18 Calcium Carbonate [Tums] 500 mg PO TIDCM 05/28/18 Calcium Carbonate/Vitamin D3 1 each PO BID 05/28/18 [Calcium 600-Vit D3 200 Tablet] Cholecalciferol (VIT D3) [Vitamin 2,000 unit PO DAILY 05/28/18 D3] Cilostazol [Pletal] 50 mg PO BIDAC 05/28/18 Ferrous Sulfate 325 mg PO BID 05/28/18 Hydroxyzine Pamoate [Vistaril] 50 mg PO QHS 05/28/18 Insulin Glargine,Hum.rec.anlog 30 unit SQ BID 05/28/18 [Basaglar Kwikpen U-100] Lactobacillus Acidophilus 1 each PO DAILY 05/28/18 [Acidophilus] Loperamide HCl [Imodium A-D] 4 mg PO PRN PRN 05/28/18 Meclizine HCl 25 mg PO PRN PRN 05/28/18 Multivitamin [Multivitamins] 1 each PO DAILY 05/28/18 Paroxetine HCl [Paxil] 40 mg PO DAILY 05/28/18 Pravastatin Sodium 10 mg PO DAILY 05/28/18 Pyridoxine HCl [Vitamin B6] 100 mg PO DAILY 05/28/18 Quetiapine Fumarate [Seroquel] 200 mg PO DAILY 05/28/18 Venlafaxine HCl [Venlafaxine HCl 225 mg PO DAILY 05/28/18 ER] hydrOXYzine pamoate capsule 25 mg PO DAILY 05/28/18 [Vistaril pamoate capsule] Bisacodyl [Dulcolax] 10 mg RECTAL DAILY PRN PRN suppos. 06/04/18 Acetaminophen 1,000 mg PO Q8H PRN PRN 06/10/18 Acetaminophen 650 mg PO Q6H PRN PRN 06/10/18 Argin/Glut/Cahmb/Collag/Mv-Min 1 each PO BID 06/10/18 [Yunier Packet] Guaifenesin Dm [Robitussin Dm] 10 ml PO Q6H PRN PRN 06/10/18 Magnesium Hydroxide [Milk Of 30 ml PO DAILY PRN PRN 06/10/18 Magnesia] Nystatin Powder [Mycostatin Powder] 1 applic TOPICAL BID 06/10/18 Ondansetron [Zofran Odt] 4 mg PO Q6H PRN PRN 06/10/18 Piperacillin Sodium/Tazobactam 3.375 gm IV TID 06/10/18 [Zosyn 3.375 Gram Vial] Sodium Phosphate,Gray-Dibasic 133 ml RC PRN PRN 06/10/18 [Enema Ready To Use] Surgical History: no surgical history, - - foot surgeries, right great toe, partial 2nd, 3rd toe amputation, left below the knee amputation Psychiatric History: No pertinent psych hx [employer] History: No pertinent [employer] history Smoking Status: Former smoker - *Family History Maternal History Items: Diabetes, Heart Disease, Hypertension Paternal History Items: - - epilepsy Sibling History Items: Diabetes Review of Systems Constitutional: Denies: Chills, Fever, Weight Change HEENT: Denies: Head Aches, Sinus Congestion, Sinus Drainage Cardiovascular: Denies: Chest Pain, Palpitations Respiratory: Reports: Shortness of breath upon exertion. Denies: Cough, Shor tness of breath at rest, Sputum production Gastrointestinal: Reports: Nausea. Denies: Abdominal Pain, Vomiting Genitourinary: Reports: Incontinence, - - indwelling salgado catheter. Denies: Dysuria Musculoskeletal: Reports: Joint Pain, Joint swelling, Muscle pain. Denies: Joint Tenderness Skin: Denies: Rash, Wounds Neurological: Reports: Balance problems, Incoordination. Denies: Focal weakness, Numbness, Tingling Psychiatric: Reports: Anxiety, Depression. Denies: Homicidal Ideations, Suicidal Ideations Hematologic/ Lymphatic: Denies: Easy Bruising, Easy Bleeding Unable to obtain accurate/complete ROS d/t: Patient smoked confused and has bipolar disorder VTE Information - Inpt Only VTE Present on Admission: No VTE Mechan Device Prophylaxis: SCD's Reason prophylaxis not ordered:: Medical Contraindication - GI bleed Patient Problems: Active and Suspected Problems GI bleed (Acute) - Physical Exam General: Oriented x3, Lethargic, - - No apparent pain HEENT: Atraumatic, PERRLA, EOMI, Normocephalic Oral: Dry Mucosa Neck: Supple, No JVD, Trachea Midline Lungs: No rhonchi, No wheeze, No rales, Diminished - Air entry is diminished in both lungs Cardiovascular: Regular rate, Regular Rhythm, Normal S1, Normal S2, No murmurs Abdomen: Bowel Sounds Present, Soft, Non Tender, Non-Distended, - - Indwelling Salgado catheter present with pus flecks. Extremities: Capillary Refill Less than 3 Seconds, Edema Skin: Ulcer/ Wound - Multiple chronic wounds over abdominal wall. Musculoskeletal: Arthritic Changes, Muscle Wasting Lymphatic: No Cervical, Supraclavicular, or Inguinal Adenopathy Neurological: Cranial nerves II-XII grossly intact, Neuro grossly intact, - - Diabetic neuropathy. Left BKA Vital Signs Temp Pulse Resp BP Pulse Ox 98.5 F 93 19 H 127/72 H 97 06/10/18 09:41 06/10/18 13:49 06/10/18 13:49 06/10/18 13:49 06/10/18 13:49 Weight: 297 lb Body Mass Index (BMI) 52.6 Finger Stick Blood Glucose 122 Microbiology Past 72 Hours 06/10/18 10:35 Gastric Occult Blood - Final Vomitus Occult Blood Positive Laboratory Tests Past 24 Hrs 06/10/18 06/10/18 06/10/18 10:30 10:30 10:30 WBC 21.3 H RBC 3.27 L Hgb 8.6 L Hct 27.2 L MCV 83.2 MCH 26.3 L MCHC 31.6 L RDW 17.4 H RDW Differential 53.3 H Plt Count 332 MPV 9.2 Immature Gran % (Auto) 0.400 Neut % (Auto) 92.9 H Lymph % (Auto) 3.2 L Gray % (Auto) 3.2 Eos % (Auto) 0.1 Baso % (Auto) 0.2 Absolute Neuts (auto) 19.8 H Absolute Lymphs (auto) 0.69 L Total Counted Not Reportable PT 18.9 H INR 1.6 Sodium 142 Potassium 3.6 Chloride 107 Carbon Dioxide 19.0 L Anion Gap 16 H BUN 44 H Creatinine 2.20 H Estim Creat Clear Calc 22.49 Est GFR (MDRD) Af Amer 29 L Est GFR (MDRD) Non-Af 24 L BUN/Creatinine Ratio 20.0 Glucose 191 H Lactic Acid Calcium 8.6 Total Bilirubin 0.50 Direct Bilirubin 0.13 AST 14 L ALT 23 Alkaline Phosphatase 114 Total Protein 6.7 Albumin 1.9 L Globulin 4.8 H Lipase 45 L Urine Color Urine Clarity Urine pH Ur Specific [place] Urine Protein Urine Glucose (UA) Urine Ketones Urine Occult Blood Urine Nitrite Urine Bilirubin Urine Urobilinogen Ur Leukocyte Esterase Urine RBC Urine WBC Ur Squamous Epith Cells Amorphous Sediment Urine Bacteria Urine Mucus 06/10/18 06/10/18 10:35 11:38 WBC RBC Hgb Hct MCV MCH MCHC RDW RDW Differential Plt Count MPV Immature Gran % (Auto) Neut % (Auto) Lymph % (Auto) Gray % (Auto) Eos % (Auto) Baso % (Auto) Absolute Neuts (auto) Absolute Lymphs (auto) Total Counted PT INR Sodium Potassium Chloride Carbon Dioxide Anion Gap BUN Creatinine Estim Creat Clear Calc Est GFR (MDRD) Af Amer Est GFR (MDRD) Non-Af BUN/Creatinine Ratio Glucose Lactic Acid 1.2 Calcium Total Bilirubin Direct Bilirubin AST ALT Alkaline Phosphatase Total Protein Albumin Globulin Lipase Urine Color Yellow Urine Clarity Sl. Cloudy Urine pH 6.0 Ur Specific [place] 1.025 Urine Protein 100 H Urine Glucose (UA) Normal Urine Ketones 15 H Urine Occult Blood 50 H Urine Nitrite Negative Urine Bilirubin Negative Urine Urobilinogen Normal Ur Leukocyte Esterase 500 H Urine RBC 0-5 SEEN Urine WBC 25-50 SEEN Ur Squamous Epith Cells 0-5 SEEN Amorphous Sediment 1+ Urine Bacteria 1+ Urine Mucus 0 SEEN Assessment/Plan All Active Problems GI bleed (Acute) Necrotizing soft tissue infection (Acute) Ulcer of abdomen wall with fat layer exposed (Acute) Abdominal wall abscess (Acute) Ulceration, vulva (Acute) Vulvar abscess (Acute) Gastroenteritis (Acute) Anemia in chronic kidney disease (Acute) Osteomyelitis of foot, right, acute (Acute) UTI (urinary tract infection) (Acute) Sepsis (Acute) Neutrophilic leukocytosis (Acute) Cellulitis of right foot (Acute) Diabetic ulcer of right foot (Acute) MSSA (methicillin susceptible Staphylococcus aureus) (Resolved) Mycotic cystitis (Resolved) Osteomyelitis (Resolved) Osteomyelitis due to secondary diabetes (Resolved) The patient is a 62 year old F with multiple comorbidities with recent hospitalization from 05/28/2018 to 06/04/2018 for nonhealing wound infection of abdominal wall with abscess of mons pubis and vulva status post abdominal wound debridement and partial vulvectomy was sent from half-way for coffee ground emesis multiple times, nausea and diarrhea for few days. Patient does not remember her color of the stool but she is on iron tablet. She has been vomiting for a few days and her H&H was low in [facility]. H&H 7.7/24.1 from 05/05/2018 until 05/12/2018. As per the patient, she was transfused PRBC and had iron infusion there. Patient complain of mild epigastric discomfort but no deep pain. In ED, heart rate was 100/min, blood pressure 116/88, pulse ox 96% on room air. NG tube was placed. There is also dried dark emesis formed on the face. NG tube was placed. H&H are 8.6/27.2. Patient has leukocytosis 21.3 thousand, last 1 11,000 on 06/04. Patient is on IV Zosyn every 8 hourly at the time of discharge on 06/04 and and completion date today 06/10. Patient has a scar in the abdominal wall of chronic nonhealing wound and dressing in mid abdomen pelvic region. Patient also has chronic indwelling Salgado catheter with pus flecks. She has left BKA. Patient is also on Eliquis although exact etiology unclear; most probably DVT prophylaxis but she is on 5 mg twice daily therapeutic dose patient denies previous history of DVT/PE. Previous EKG shows normal sinus rhythm.; 1. Acute anemia of blood loss from GI bleed probably from Eliquis or GI lesion/gastritis/ ulcer: Patient is being admitted in PCU. H&H every 6 hourly. IV fluid normal saline to maintain blood pressure. Started on Protonix IV drip after total of 80 mg IV bolus. Stop Eliquis. ER physician consulted Dr. Cueva and advised to hold Eliquis for at least 24 hours before scope. 2. Acute anemia of blood loss on chronic anemia: Group and crossmatch. IV iron infusion ordered. 3. Chronic abdominal wound infection and mons pubis/vulvar ulcer status post partial vulvectomy on 06/03/2018: Continue the antibiotic. We will check a stool for C. difficile. 4. Diabetes mellitus type 2: Accu-Chek before meals and at bedtime and cover with NovoLog sliding scale. Last A1c was 6.5 on 05/14 as per the half-way pa per Multiple comorbidities including CKD stage IV, chronic recurrent UTI with Proteus mirabilis, wound infection including MRSA, Proteus mirabilis, bacteroids, diabetic nephropathy, neuropathy and peripheral arterial disease, diabetic ulcer with osteomyelitis status post left BKA 5. Chronic hypoxic respiratory failure: Continue oxygen to keep pulse ox 90%. Psychiatric comorbidities: Bipolar disorder, anxiety and depression and personality disorder: Home medication reconciliation done. End of life goals/advance directive: Patient is discussed about different options including full code, DNR CCA and DNR CC in the presence of her sister. As per the sister and patient she does not want artificial life support including intubation, ventilator and/chest compression. Patient is DNR CC Arrest. Total time spent in [id number] encounter in discussion of advanced directive 18 minutes. Code Visit Inpatient E&M: 37808 Init Hosp L3
--- NOTE | 2018-06-10 14:38 | EKG12_ITS ---
Test Reason : CP ADMIT Blood Pressure : / mmHG Vent. Rate : 089 BPM Atrial Rate : 089 BPM P-R Int : 174 ms QRS Dur : 092 ms QT Int : 340 ms P-R-T Axes : 008 -04 168 degrees QTc Int : 413 ms Normal sinus rhythm with sinus arrhythmia Possible Anterolateral infarct , age undetermined Abnormal ECG When compared with ECG of 28-MAY-2018 13:08, Borderline criteria for Anterior infarct are now Present Borderline criteria for Anterolateral infarct are now Present Confirmed by LEONARD SHARMA ([id number]), editor sound SIVA DOUGLAS ([id number]) on 06/16/2018 5:11:57 PM Referred By: Isac Segovia Confirmed By:LEONARD SHARMA
[2018-06-10] MEDS: 0.9% Normal Saline 1,000 ML 100 ML IV (15:00)
[2018-06-10 15:30] LABS: Hematocrit 27.8 % (37-47); Hemoglobin 8.4 g/dl (12.0-15.0)
[2018-06-10 18:45] LABS: Bedside Glucose 158 mg/dL (70-110)
[2018-06-10 21:06] LABS: Hematocrit 25.8 % (37-47); Hemoglobin 8.3 g/dl (12.0-15.0)
[2018-06-10] MEDS: Nystatin Powder 15gm Bottle 1 APPLIC TOPICAL (23:14)
[2018-06-11] VITALS (11 sets, daily range): BP systolic 108–126; BP diastolic 66–77; PULSE 91–96; RESP 15–18; TEMP 36.6–37.2; O2SAT 92–100
[2018-06-11 00:25] LABS: Bedside Glucose 132 mg/dL (70-110)
[2018-06-11 02:30] LABS: Bedside Glucose 141 mg/dL (70-110)
[2018-06-11 03:34] LABS: Absolute Lymphocyte Count 1.21 X10^3/ul (0.83-4.51); Absolute Neutrophil Count 17.7 X10^3/uL (2.0-7.7); Basophil# 0.11 X10^3/uL; Basophil% 0.5 % (0-1); Eosinophil# 0.19 X10^3/uL; Eosinophils% 0.9 % (0-5); Hematocrit 30.1 % (37-47); Hemoglobin 9.3 g/dl (12.0-15.0); Lymphocyte # 1.21 X10^3/ul (4.0); Lymphocyte % 5.8 % (19-41); Mean Corp Hgb Conc 30.9 g/gl (32-36); Mean Corpuscular Hgb 26.1 pg (27.0-32.0); Mean Corpuscular Volume 84.6 fL (81-99); Mean Platelet Vol. 9.5 fl (6.2-12.0); Monocyte# 1.47 X10^3/uL; Monocyte% 7.1 % (0-10); Neutrophil # 17.72 X10^3/uL (2.7-7.7); Neutrophil % 85.3 % (47-70); Platelet Count 404 K/mm3 (150-450); RBC Distribution Width CV 17.4 % (11.6-14.6); RBC Distribution Width SD 52.4 fl (35.1-43.9); Red Blood Count 3.56 M/mm3 (4.2-5.4); White Blood Count 20.8 K/mm3 (4.4-11.0)
[2018-06-11 03:47] LABS: Anion Gap 14 (5-15); BUN 41 mg/dL (7-18); BUN/Creat Ratio 19.5 RATIO (10-20); Calcium,Total 8.8 mg/dL (8.5-10.1); Chloride 111 mmol/L (98-107); EST Glomerular Filtration Rate 26 mL/min (>60); Est Glom Filt Rate - Afr Amer 31 mL/min (>60); Estimated Creatinine Clearance 22.53 ml/min; Glucose 143 mg/dL (74-106); Potassium 3.5 mmol/L (3.5-5.1); Sodium Level 143 mmol/L (136-145)
[2018-06-11 03:48] LABS: POSITIVE COUNT NO; POSITIVE DIFFERENTIAL NO; POSITIVE MORPHOLOGY NO
[2018-06-11 06:55] LABS: Bedside Glucose 132 mg/dL (70-110)
--- NOTE | 2018-06-11 09:04 | PCM.CONS.GEN ---
Problem List (1) GI bleed Status: Acute Qualifiers: GI bleed type/associated pathology: gastrointestinal hemorrhage with hematemesis Qualified Code(s): K92.0 - Hematemesis Reason for Consult Date of Consultation: 06/11/18 Reason for Consultation: GI bleed History of Present Illness: The patient is a 62 year old F admitted with upper GI bleed. The patient reports that she always has dark stools because she is on iron supplementation but yesterday but a few days ago she began to have vomiting and vomited coffee-ground emesis. She presented to the emergency room yesterday and placed and there was dark coffee-ground material aspirated from the stomach. She is not complaining of any abdominal pain this morning only nausea. Past Medical History Past Medical History (Chronic Problems): Chronic Problems Intertrigo (Chronic) abdominal wall skin crease intertrigo Panniculitis (Chronic) Abdominal panniculus (Chronic) Iron deficiency anemia (Chronic) Chronic respiratory failure with hypoxia (Chronic) Type 2 diabetes mellitus with diabetic polyneuropathy (Chronic) History of tobacco abuse (Chronic) HLD (hyperlipidemia) (Chronic) HTN (hypertension) (Chronic) Morbid obesity (Chronic) bmi 46 Noncompliance (Chronic) with diabetic therapy Personality disorder (Chronic) History of self-harm (Chronic) scratching and picking Self neglect (Chronic) Type 2 diabetes mellitus (Chronic) Bipolar disorder (Chronic) Anxiety (Chronic) 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 2 diabetes mellitus with diabetic polyneuropathy (Chronic) Allergies adhesive Allergy (Verified 06/10/18 10:52) Rash cefadroxil hydrate [From Duricef] Allergy (Verified 06/10/18 10:52) Rash cephalexin monohydrate [From Keflex] Allergy (Verified 06/10/18 10:52) Rash venom-honey bee [bee venom (honey bee)] Allergy (Verified 06/10/18 10:52) Rash Home Medications: Ambulatory Orders Medication Instructions Recorded Apixaban [Eliquis] 5 mg PO BID 05/28/18 Ascorbic Acid [Vitamin C] 500 mg PO BID 05/28/18 Calcium Carbonate [Tums] 500 mg PO TIDCM 05/28/18 Calcium Carbonate/Vitamin D3 1 each PO BID 05/28/18 [Calcium 600-Vit D3 200 Tablet] Cholecalciferol (VIT D3) [Vitamin 2,000 unit PO DAILY 05/28/18 D3] Cilostazol [Pletal] 50 mg PO BIDAC 05/28/18 Ferrous Sulfate 325 mg PO BID 05/28/18 Hydroxyzine Pamoate [Vistaril] 50 mg PO QHS 05/28/18 Insulin Glargine,Hum.rec.anlog 30 unit SQ BID 05/28/18 [Basaglar Kwikpen U-100] Lactobacillus Acidophilus 1 each PO DAILY 05/28/18 [Acidophilus] Loperamide HCl [Imodium A-D] 4 mg PO PRN PRN 05/28/18 Meclizine HCl 25 mg PO PRN PRN 05/28/18 Multivitamin [Multivitamins] 1 each PO DAILY 05/28/18 Paroxetine HCl [Paxil] 40 mg PO DAILY 05/28/18 Pravastatin Sodium 10 mg PO DAILY 05/28/18 Pyridoxine HCl [Vitamin B6] 100 mg PO DAILY 05/28/18 Quetiapine Fumarate [Seroquel] 200 mg PO DAILY 05/28/18 Venlafaxine HCl [Venlafaxine HCl 225 mg PO DAILY 05/28/18 ER] hydrOXYzine pamoate capsule 25 mg PO DAILY 05/28/18 [Vistaril pamoate capsule] Bisacodyl [Dulcolax] 10 mg RECTAL DAILY PRN PRN suppos. 06/04/18 Acetaminophen 1,000 mg PO Q8H PRN PRN 06/10/18 Acetaminophen 650 mg PO Q6H PRN PRN 06/10/18 Argin/Glut/Cahmb/Collag/Mv-Min 1 each PO BID 06/10/18 [Yunier Packet] Guaifenesin Dm [Robitussin Dm] 10 ml PO Q6H PRN PRN 06/10/18 Magnesium Hydroxide [Milk Of 30 ml PO DAILY PRN PRN 06/10/18 Magnesia] Nystatin Powder [Mycostatin Powder] 1 applic TOPICAL BID 06/10/18 Ondansetron [Zofran Odt] 4 mg PO Q6H PRN PRN 06/10/18 Piperacillin Sodium/Tazobactam 3.375 gm IV TID 06/10/18 [Zosyn 3.375 Gram Vial] Sodium Phosphate,[place]-Dibasic 133 ml RC PRN PRN 06/10/18 [Enema Ready To Use] Surgical History: - - Multiple panniculectomy is for necrotizing soft tissue infection Psychiatric History: No pertinent psych hx INDIAN NANNY History: No pertinent INDIAN NANNY history Smoking Status: Former smoker - *Family History Maternal History Items: Diabetes, Heart Disease, Hypertension Paternal History Items: - - epilepsy Sibling History Items: Diabetes Review of Systems Constitutional: Denies: Fever HEENT: Denies: Difficulty Swallowing Respiratory: Denies: Cough Gastrointestinal: Reports: Hematemesis, Nausea, Melena, Vomiting. Denies: Abdominal Pain Genitourinary: Reports: - - Indwelling Shay Patient Problems: Active and Suspected Problems GI bleed (Acute) - Physical Exam General: Alert, Cooperative Neck: No JVD Lungs: Normal air movement Abdomen: Soft, - - Patient has a large dressing in place from panniculectomy Neurological: Cranial nerves II-XII grossly intact Psych/Mental Status: Normal Affect Vital Signs Temp Pulse Resp BP Pulse Ox 97.9 F 96 18 121/77 H 94 06/11/18 02:11 06/11/18 07:37 06/11/18 02:11 06/11/18 02:11 06/11/18 02:11 Oxygen Delivery Method Room Air Weight: 297 lb 2.93 oz Body Mass Index (BMI) 52.6 Finger Stick Blood Glucose 122 Intake and Output for Last 24 Hours 06/09/18 06/10/18 06/11/18 23:59 23:59 23:59 Intake Total 838 / 838 Output Total 750 / 750 525 / 525 Balance -750 / -750 313 / 313 Microbiology Past 72 Hours 06/10/18 10:35 Gastric Occult Blood - Final Vomitus Occult Blood Positive Laboratory Tests Past 24 Hrs 06/10/18 06/10/18 06/10/18 10:30 10:30 10:30 WBC 21.3 H RBC 3.27 L Hgb 8.6 L Hct 27.2 L MCV 83.2 MCH 26.3 L MCHC 31.6 L RDW 17.4 H RDW Differential 53.3 H Plt Count 332 MPV 9.2 Immature Gran % (Auto) 0.400 Neut % (Auto) 92.9 H Lymph % (Auto) 3.2 L [place] % (Auto) 3.2 Eos % (Auto) 0.1 Baso % (Auto) 0.2 Absolute Neuts (auto) 19.8 H Absolute Lymphs (auto) 0.69 L Total Counted Not Reportable PT 18.9 H INR 1.6 Sodium 142 Potassium 3.6 Chloride 107 Carbon Dioxide 19.0 L Anion Gap 16 H BUN 44 H Creatinine 2.20 H Estim Creat Clear Calc 22.49 Est GFR (MDRD) Af Amer 29 L Est GFR (MDRD) Non-Af 24 L BUN/Creatinine Ratio 20.0 Glucose 191 H Lactic Acid Calcium 8.6 Total Bilirubin 0.50 Direct Bilirubin 0.13 AST 14 L ALT 23 Alkaline Phosphatase 114 Total Protein 6.7 Albumin 1.9 L Globulin 4.8 H Lipase 45 L Urine Color Urine Clarity Urine pH Ur Specific [place] Urine Protein Urine Glucose (UA) Urine Ketones Urine Occult Blood Urine Nitrite Urine Bilirubin Urine Urobilinogen Ur Leukocyte Esterase Urine RBC Urine WBC Ur Squamous Epith Cells Amorphous Sediment Urine Bacteria Urine Mucus 06/10/18 06/10/18 06/10/18 10:35 11:38 15:15 WBC RBC Hgb 8.4 L Hct 27.8 L MCV MCH MCHC RDW RDW Differential Plt Count MPV Immature Gran % (Auto) Neut % (Auto) Lymph % (Auto) [place] % (Auto) Eos % (Auto) Baso % (Auto) Absolute Neuts (auto) Absolute Lymphs (auto) Total Counted PT INR Sodium Potassium Chloride Carbon Dioxide Anion Gap BUN Creatinine Estim Creat Clear Calc Est GFR (MDRD) Af Amer Est GFR (MDRD) Non-Af BUN/Creatinine Ratio Glucose Lactic Acid 1.2 Calcium Total Bilirubin Direct Bilirubin AST ALT Alkaline Phosphatase Total Protein Albumin Globulin Lipase Urine Color Yellow Urine Clarity Sl. Cloudy Urine pH 6.0 Ur Specific [place] 1.025 Urine Protein 100 H Urine Glucose (UA) Normal Urine Ketones 15 H Urine Occult Blood 50 H Urine Nitrite Negative Urine Bilirubin Negative Urine Urobilinogen Normal Ur Leukocyte Esterase 500 H Urine RBC 0-5 SEEN Urine WBC 25-50 SEEN Ur Squamous Epith Cells 0-5 SEEN Amorphous Sediment 1+ Urine Bacteria 1+ Urine Mucus 0 SEEN 06/10/18 06/11/18 06/11/18 20:50 03:24 03:24 WBC 20.8 H RBC 3.56 L Hgb 8.3 L 9.3 L Hct 25.8 L 30.1 L MCV 84.6 MCH 26.1 L MCHC 30.9 L RDW 17.4 H RDW Differential 52.4 H Plt Count 404 MPV 9.5 Immature Gran % (Auto) 0.400 Neut % (Auto) 85.3 H Lymph % (Auto) 5.8 L [place] % (Auto) 7.1 Eos % (Auto) 0.9 Baso % (Auto) 0.5 Absolute Neuts (auto) 17.7 H Absolute Lymphs (auto) 1.21 Total Counted Not Reportable PT INR Sodium 143 Potassium 3.5 Chloride 111 H Carbon Dioxide 18.0 L Anion Gap 14 BUN 41 H Creatinine 2.10 H Estim Creat Clear Calc 22.53 Est GFR (MDRD) Af Amer 31 L Est GFR (MDRD) Non-Af 26 L BUN/Creatinine Ratio 19.5 Glucose 143 H Lactic Acid Calcium 8.8 Total Bilirubin Direct Bilirubin AST ALT Alkaline Phosphatase Total Protein Albumin Globulin Lipase Urine Color Urine Clarity Urine pH Ur Specific [place] Urine Protein Urine Glucose (UA) Urine Ketones Urine Occult Blood Urine Nitrite Urine Bilirubin Urine Urobilinogen Ur Leukocyte Esterase Urine RBC Urine WBC Ur Squamous Epith Cells Amorphous Sediment Urine Bacteria Urine Mucus POC Glucose 06/11/18 06/11/18 06/10/18 06:03 02:27 23:26 POC Glucose 132 H 141 H 132 H 06/10/18 18:39 POC Glucose 158 H Clinical Impression(s) from Imaging Studies KUB X-Ray 06/10/18 09:33 IMPRESSION: The tip of the nasogastric tube is in the distal portion of the stomach. Electronically Signed: Abdirizak Courtney, at 11:54 EDT , Service support , Assessment/Plan All Active Problems GI bleed (Acute) Necrotizing soft tissue infection (Acute) Ulcer of abdomen wall with fat layer exposed (Acute) Abdominal wall abscess (Acute) Ulceration, vulva (Acute) Vulvar abscess (Acute) Gastroenteritis (Acute) Anemia in chronic kidney disease (Acute) Osteomyelitis of foot, right, acute (Acute) UTI (urinary tract infection) (Acute) Sepsis (Acute) Neutrophilic leukocytosis (Acute) Cellulitis of right foot (Acute) Diabetic ulcer of right foot (Acute) MSSA (methicillin susceptible Staphylococcus aureus) (Resolved) Mycotic cystitis (Resolved) Osteomyelitis (Resolved) Osteomyelitis due to secondary diabetes (Resolved) 62-year-old female with upper GI bleed 1. Patient has NG in place with coffee-ground aspirate. Continue PPI and n.p.o. with NG tube suction. Continue to hold anticoagulation. The Eliquis has been held for 24 hours and I will take her tomorrow for EGD to evaluate for upper GI bleeding. If this does not show source of bleeding I will take her for colonoscopy the next day. Alfonzo Cueva MD Pager: [facility] [address] [place] [address], [address] [place] [address] Office:
--- NOTE | 2018-06-11 09:07 | CON.PCM_ITS ---
Problem List (1) GI bleed Status: Acute Qualifiers: GI bleed type/associated pathology: gastrointestinal hemorrhage with hematemesis Qualified Code(s): K92.0 - Hematemesis Reason for Consult Date of Consultation: 06/11/18 Reason for Consultation: GI bleed History of Present Illness: The patient is a 62 year old F admitted with upper GI bleed. The patient reports that she always has dark stools because she is on iron supplementation but yesterday but a few days ago she began to have vomiting and vomited coffee- ground emesis. She presented to the emergency room yesterday and placed and there was dark coffee-ground material aspirated from the stomach. She is not complaining of any abdominal pain this morning only nausea. Past Medical History Past Medical History (Chronic Problems): Chronic Problems Intertrigo (Chronic) abdominal wall skin crease intertrigo Panniculitis (Chronic) Abdominal panniculus (Chronic) Iron deficiency anemia (Chronic) Chronic respiratory failure with hypoxia (Chronic) Type 2 diabetes mellitus with diabetic polyneuropathy (Chronic) History of tobacco abuse (Chronic) HLD (hyperlipidemia) (Chronic) HTN (hypertension) (Chronic) Morbid obesity (Chronic) bmi 46 Noncompliance (Chronic) with diabetic therapy Personality disorder (Chronic) History of self-harm (Chronic) scratching and picking Self neglect (Chronic) Type 2 diabetes mellitus (Chronic) Bipolar disorder (Chronic) Anxiety (Chronic) 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 2 diabetes mellitus with diabetic polyneuropathy (Chronic) Allergies adhesive Allergy (Verified 06/10/18 10:52) Rash cefadroxil hydrate [From Duricef] Allergy (Verified 06/10/18 10:52) Rash cephalexin monohydrate [From Keflex] Allergy (Verified 06/10/18 10:52) Rash venom-honey bee [bee venom (honey bee)] Allergy (Verified 06/10/18 10:52) Rash Home Medications: Ambulatory Orders Medication Instructions Recorded Apixaban [Eliquis] 5 mg PO BID 05/28/18 Ascorbic Acid [Vitamin C] 500 mg PO BID 05/28/18 Calcium Carbonate [Tums] 500 mg PO TIDCM 05/28/18 Calcium Carbonate/Vitamin D3 1 each PO BID 05/28/18 [Calcium 600-Vit D3 200 Tablet] Cholecalciferol (VIT D3) [Vitamin 2,000 unit PO DAILY 05/28/18 D3] Cilostazol [Pletal] 50 mg PO BIDAC 05/28/18 Ferrous Sulfate 325 mg PO BID 05/28/18 Hydroxyzine Pamoate [Vistaril] 50 mg PO QHS 05/28/18 Insulin Glargine,Hum.rec.anlog 30 unit SQ BID 05/28/18 [Basaglar Kwikpen U-100] Lactobacillus Acidophilus 1 each PO DAILY 05/28/18 [Acidophilus] Loperamide HCl [Imodium A-D] 4 mg PO PRN PRN 05/28/18 Meclizine HCl 25 mg PO PRN PRN 05/28/18 Multivitamin [Multivitamins] 1 each PO DAILY 05/28/18 Paroxetine HCl [Paxil] 40 mg PO DAILY 05/28/18 Pravastatin Sodium 10 mg PO DAILY 05/28/18 Pyridoxine HCl [Vitamin B6] 100 mg PO DAILY 05/28/18 Quetiapine Fumarate [Seroquel] 200 mg PO DAILY 05/28/18 Venlafaxine HCl [Venlafaxine HCl 225 mg PO DAILY 05/28/18 ER] hydrOXYzine pamoate capsule 25 mg PO DAILY 05/28/18 [Vistaril pamoate capsule] Bisacodyl [Dulcolax] 10 mg RECTAL DAILY PRN PRN suppos. 06/04/18 Acetaminophen 1,000 mg PO Q8H PRN PRN 06/10/18 Acetaminophen 650 mg PO Q6H PRN PRN 06/10/18 Argin/Glut/Cahmb/Collag/Mv-Min 1 each PO BID 06/10/18 [Yunier Packet] Guaifenesin Dm [Robitussin Dm] 10 ml PO Q6H PRN PRN 06/10/18 Magnesium Hydroxide [Milk Of 30 ml PO DAILY PRN PRN 06/10/18 Magnesia] Nystatin Powder [Mycostatin Powder] 1 applic TOPICAL BID 06/10/18 Ondansetron [Zofran Odt] 4 mg PO Q6H PRN PRN 06/10/18 Piperacillin Sodium/Tazobactam 3.375 gm IV TID 06/10/18 [Zosyn 3.375 Gram Vial] Sodium Phosphate,[place]-Dibasic 133 ml RC PRN PRN 06/10/18 [Enema Ready To Use] Surgical History: - - Multiple panniculectomy is for necrotizing soft tissue infection Psychiatric History: No pertinent psych hx 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 Denies: Abdominal Pain Genitourinary: Reports: - - Indwelling Shay Patient Problems: Active and Suspected Problems GI bleed (Acute) - Physical Exam General: Alert, Cooperative Neck: No JVD Lungs: Normal air movement Abdomen: Soft, - - Patient has a large dressing in place from panniculectomy Neurological: Cranial nerves II-XII grossly intact Psych/Mental Status: Normal Affect Vital Signs Temp Pulse Resp BP Pulse Ox 97.9 F 96 18 121/77 H 94 06/11/18 02:11 06/11/18 07:37 06/11/18 02:11 06/11/18 02:11 06/11/18 02:11 Oxygen Delivery Method Room Air Weight: 297 lb 2.93 oz Body Mass Index (BMI) 52.6 Finger Stick Blood Glucose 122 Intake and Output for Last 24 Hours 06/09/18 06/10/18 06/11/18 23:59 23:59 23:59 Intake Total 838 / 838 Output Total 750 / 750 525 / 525 Balance -750 / -750 313 / 313 Microbiology Past 72 Hours 06/10/18 10:35 Gastric Occult Blood - Final Vomitus Occult Blood Positive Laboratory Tests Past 24 Hrs 06/10/18 06/10/18 06/10/18 10:30 10:30 10:30 WBC 21.3 H RBC 3.27 L Hgb 8.6 L Hct 27.2 L MCV 83.2 MCH 26.3 L MCHC 31.6 L RDW 17.4 H RDW Differential 53.3 H Plt Count 332 MPV 9.2 Immature Gran % (Auto) 0.400 Neut % (Auto) 92.9 H Lymph % (Auto) 3.2 L [place] % (Auto) 3.2 Eos % (Auto) 0.1 Baso % (Auto) 0.2 Absolute Neuts (auto) 19.8 H Absolute Lymphs (auto) 0.69 L Total Counted Not Reportable PT 18.9 H INR 1.6 Sodium 142 Potassium 3.6 Chloride 107 Carbon Dioxide 19.0 L Anion Gap 16 H BUN 44 H Creatinine 2.20 H Estim Creat Clear Calc 22.49 Est GFR (MDRD) Af Amer 29 L Est GFR (MDRD) Non-Af 24 L BUN/Creatinine Ratio 20.0 Glucose 191 H Lactic Acid Calcium 8.6 Total Bilirubin 0.50 Direct Bilirubin 0.13 AST 14 L ALT 23 Alkaline Phosphatase 114 Total Protein 6.7 Albumin 1.9 L Globulin 4.8 H Lipase 45 L Urine Color Urine Clarity Urine pH Ur Specific [place] Urine Protein Urine Glucose (UA) Urine Ketones Urine Occult Blood Urine Nitrite Urine Bilirubin Urine Urobilinogen Ur Leukocyte Esterase Urine RBC Urine WBC Ur Squamous Epith Cells Amorphous Sediment Urine Bacteria Urine Mucus 06/10/18 06/10/18 06/10/18 10:35 11:38 15:15 WBC RBC Hgb 8.4 L Hct 27.8 L MCV MCH MCHC RDW RDW Differential Plt Count MPV Immature Gran % (Auto) Neut % (Auto) Lymph % (Auto) [place] % (Auto) Eos % (Auto) Baso % (Auto) Absolute Neuts (auto) Absolute Lymphs (auto) Total Counted PT INR Sodium Potassium Chloride Carbon Dioxide Anion Gap BUN Creatinine Estim Creat Clear Calc Est GFR (MDRD) Af Amer Est GFR (MDRD) Non-Af BUN/Creatinine Ratio Glucose Lactic Acid 1.2 Calcium Total Bilirubin Direct Bilirubin AST ALT Alkaline Phosphatase Total Protein Albumin Globulin Lipase Urine Color Yellow Urine Clarity Sl. Cloudy Urine pH 6.0 Ur Specific [place] 1.025 Urine Protein 100 H Urine Glucose (UA) Normal Urine Ketones 15 H Urine Occult Blood 50 H Urine Nitrite Negative Urine Bilirubin Negative Urine Urobilinogen Normal Ur Leukocyte Esterase 500 H Urine RBC 0-5 SEEN Urine WBC 25-50 SEEN Ur Squamous Epith Cells 0-5 SEEN Amorphous Sediment 1+ Urine Bacteria 1+ Urine Mucus 0 SEEN 06/10/18 06/11/18 06/11/18 20:50 03:24 03:24 WBC 20.8 H RBC 3.56 L Hgb 8.3 L 9.3 L Hct 25.8 L 30.1 L MCV 84.6 MCH 26.1 L MCHC 30.9 L RDW 17.4 H RDW Differential 52.4 H Plt Count 404 MPV 9.5 Immature Gran % (Auto) 0.400 Neut % (Auto) 85.3 H Lymph % (Auto) 5.8 L [place] % (Auto) 7.1 Eos % (Auto) 0.9 Baso % (Auto) 0.5 Absolute Neuts (auto) 17.7 H Absolute Lymphs (auto) 1.21 Total Counted Not Reportable PT INR Sodium 143 Potassium 3.5 Chloride 111 H Carbon Dioxide 18.0 L Anion Gap 14 BUN 41 H Creatinine 2.10 H Estim Creat Clear Calc 22.53 Est GFR (MDRD) Af Amer 31 L Est GFR (MDRD) Non-Af 26 L BUN/Creatinine Ratio 19.5 Glucose 143 H Lactic Acid Calcium 8.8 Total Bilirubin Direct Bilirubin AST ALT Alkaline Phosphatase Total Protein Albumin Globulin Lipase Urine Color Urine Clarity Urine pH Ur Specific [place] Urine Protein Urine Glucose (UA) Urine Ketones Urine Occult Blood Urine Nitrite Urine Bilirubin Urine Urobilinogen Ur Leukocyte Esterase Urine RBC Urine WBC Ur Squamous Epith Cells Amorphous Sediment Urine Bacteria Urine Mucus POC Glucose 06/11/18 06/11/18 06/10/18 06:03 02:27 23:26 POC Glucose 132 H 141 H 132 H 06/10/18 18:39 POC Glucose 158 H Clinical Impression(s) from Imaging Studies KUB X-Ray 06/10/18 09:33 IMPRESSION: The tip of the nasogastric tube is in the distal portion of the stomach. Electronically Signed: Abdirizak Courtney, at 11:54 EDT , Service support , Assessment/Plan All Active Problems GI bleed (Acute) Necrotizing soft tissue infection (Acute) Ulcer of abdomen wall with fat layer exposed (Acute) Abdominal wall abscess (Acute) Ulceration, vulva (Acute) Vulvar abscess (Acute) Gastroenteritis (Acute) Anemia in chronic kidney disease (Acute) Osteomyelitis of foot, right, acute (Acute) UTI (urinary tract infection) (Acute) Sepsis (Acute) Neutrophilic leukocytosis (Acute) Cellulitis of right foot (Acute) Diabetic ulcer of right foot (Acute) MSSA (methicillin susceptible Staphylococcus aureus) (Resolved) Mycotic cystitis (Resolved) Osteomyelitis (Resolved) Osteomyelitis due to secondary diabetes (Resolved) 62-year-old female with upper GI bleed 1. Patient has NG in place with coffee-ground aspirate. Continue PPI and n.p.o. with NG tube suction. Continue to hold anticoagulation. The Eliquis has been held for 24 hours and I will take her tomorrow for EGD to evaluate for upper GI bleeding. If this does not show source of bleeding I will take her for colonoscopy the next day. Alfonzo Cueva MD Pager: [facility] [address] [place] [address], [address] [place] [address] Office:
[2018-06-11] MEDS: Ondansetron 4 MG/2 ML Vial IV (09:48)
[2018-06-11] MEDS: 0.9% Normal Saline 1,000 ML 100 ML IV ×2 (09:48→20:00)
[2018-06-11] MEDS: Nystatin Powder 15gm Bottle 1 APPLIC TOPICAL ×2 (09:49→22:44)
--- NOTE | 2018-06-11 10:15 | NURSING ---
Was asked to see patient for wounds to abdomen. pt is known to this nurse. was just discharged from Med Surg last week. Pt is nauseated at this time and does not want this nurse to assess abdomen at this time. informed patient that this nurse will come back later and assess wounds and most likely apply a wound VAC to the left lower abdominal wound. pt very agitated at this time.
[2018-06-11 11:01] LABS: Bedside Glucose 133 mg/dL (70-110)
--- NOTE | 2018-06-11 13:37 | PCM.PN.HOSP ---
Patient Problems: Active and Suspected Problems GI bleed (Acute) Subjective: Patient seen and examined. She was admitted with a complaint of coffee-ground emesis and diarrhea. Hemoglobin was noted to be 7.7 in her half-way and she says she was transfused with blood and had an transfusion there. She has been admitted for upper GI bleed. Patient was very upset this morning because she said she was still vomiting and had severe nausea and went to the EGD to be done today instead of tomorrow. She was generally very upset at how ill she had pain for the past few months, with her having had cellulitis needing debridement and she thinks it has not been healing well. Review of systems otherwise negative. Labs and vitals reviewed. Vitals/I&O's: Vital Signs Temp Pulse Resp BP Pulse Ox 98 F 94 15 108/72 100 06/11/18 09:35 06/11/18 12:22 06/11/18 09:35 06/11/18 09:35 06/11/18 11:58 Oxygen Delivery Method Room Air Weight: 297 lb 2.93 oz Body Mass Index (BMI) 52.6 Finger Stick Blood Glucose 122 Intake and Output for Last 24 Hours 06/09/18 06/10/18 06/11/18 23:59 23:59 23:59 Intake Total 1696 / 1696 Output Total 750 / 750 800 / 800 Balance -750 / -750 896 / 896 General: Alert, Oriented x3, Cooperative, - - very distressed and tearful HEENT: Atraumatic, PERRLA, EOMI, Normocephalic, - - NG tube in place draining bilious fluid Oral: Dry Mucosa Neck: Supple, No JVD, Negative Carotid Bruits Lungs: Clear to auscultation, Normal air movement, No rhonchi, No wheeze, No rales Cardiovascular: Regular rate, Regular Rhythm, Normal S1, Normal S2, No murmurs Abdomen: Bowel Sounds Present, Soft, Non-Distended, - - mild tenderness in lower abdomen, where over area of wound dressing. Extremities: No clubbing, No cyanosis, No edema, - - left BKA. Skin: - - clean dressing over lower abdominal wall and suprapubic area. Musculoskeletal: No Tenderness to Palpation of Joints or Extremities Lymphatic: No Cervical, Supraclavicular, or Inguinal Adenopathy Neurological: Cranial nerves II-XII grossly intact Psych/Mental Status: Agitated, Alert and oriented to time, place, person, mood and affect Microbiology Past 72 Hours 06/10/18 10:35 Vomitus Gastric Occult Blood - Final Occult Blood Positive Laboratory Results 06/10/18 15:15: Hgb 8.4 L, Hct 27.8 L 06/10/18 18:39: POC Glucose 158 H 06/10/18 20:50: Hgb 8.3 L, Hct 25.8 L 06/10/18 23:26: POC Glucose 132 H 06/11/18 02:27: POC Glucose 141 H 06/11/18 03:24: WBC 20.8 H, RBC 3.56 L, Hgb 9.3 L, Hct 30.1 L, MCV 84.6, MCH 26.1 L, MCHC 30.9 L, RDW 17.4 H, RDW Differential 52.4 H, Plt Count 404, MPV 9.5, Immature Gran % (Auto) 0.400, Neut % (Auto) 85.3 H, Lymph % (Auto) 5.8 L, [place] % (Auto) 7.1, Eos % (Auto) 0.9, Baso % (Auto) 0.5, Absolute Neuts (auto) 17.7 H, Absolute Lymphs (auto) 1.21, Total Counted Not Reportable 06/11/18 03:24: Sodium 143, Potassium 3.5, Chloride 111 H, Carbon Dioxide 18.0 L, Anion Gap 14, BUN 41 H, Creatinine 2.10 H, Estim Creat Clear Calc 22.53, Est GFR (MDRD) Af Amer 31 L, Est GFR (MDRD) Non-Af 26 L, BUN/Creatinine Ratio 19.5, Glucose 143 H, Calcium 8.8 06/11/18 06:03: POC Glucose 132 H 06/11/18 09:50: POC Glucose 133 H Diagnostic Data KUB X-Ray 06/10/18 09:33 IMPRESSION: The tip of the nasogastric tube is in the distal portion of the stomach. Electronically Signed: Abdirizak Courtney, at 11:54 EDT , Service support , Current Medications Acetaminophen (Tylenol) 650 mg PO Q6H PRN PRN PRN Reason: FEVER Bisacodyl (Dulcolax) 10 mg RECTAL DAILY PRN PRN PRN Reason: Constipation Dextrose (D50w Syringe) 0 gm IV X1 PRN; Protocol PRN Reason: Hypoglycemia Glucagon () 1 mg IM .X1 PRN PRN Reason: Hypoglycemia Sodium Chloride () 1,000 mls @ 100 mls/hr IV .Q10H [facility] Last Admin: 06/11/18 09:48 Dose: 100 mls/hr Pantoprazole Sodium 80 mg/ (Sodium Chloride) 100 mls @ 10 mls/hr CONT INF Q10H [facility] Last Admin: 06/11/18 02:21 Dose: 10 mls/hr Piperacillin Sod/Tazobactam (Sod 3.375 gm/ Sodium Chloride) 50 mls @ 12.5 mls/hr IV Q8 [facility] Last Admin: 06/11/18 06:06 Dose: 12.5 mls/hr Insulin Human Lispro (Humalog Kwikpen (Bkc)) 0 unit SQ Q4 [facility]; Protocol Last Admin: 06/11/18 09:51 Dose: Not Given Morphine Sulfate () 2 mg IV Q3H PRN PRN PRN Reason: SEVERE PAIN (6-10/10) Nystatin (Mycostatin Powder) 1 applic TOPICAL BID [facility]; Protocol Last Admin: 06/11/18 09:49 Dose: 1 applicatio Ondansetron HCl (Zofran) 4 mg IV Q8H PRN PRN PRN Reason: NAUSEA Last Admin: 06/11/18 09:48 Dose: 4 mg Sodium Chloride () 5 - 15 ml IV UD PRN PRN Reason: SALINE FLUSH Medical Necessity - Tobacco Use Smoking Status: Former smoker Assessment/Plan All Active Problems GI bleed (Acute) Necrotizing soft tissue infection (Acute) Ulcer of abdomen wall with fat layer exposed (Acute) Abdominal wall abscess (Acute) Ulceration, vulva (Acute) Vulvar abscess (Acute) Gastroenteritis (Acute) Anemia in chronic kidney disease (Acute) Osteomyelitis of foot, right, acute (Acute) UTI (urinary tract infection) (Acute) Sepsis (Acute) Neutrophilic leukocytosis (Acute) Cellulitis of right foot (Acute) Diabetic ulcer of right foot (Acute) MSSA (methicillin susceptible Staphylococcus aureus) (Resolved) Mycotic cystitis (Resolved) Osteomyelitis (Resolved) Osteomyelitis due to secondary diabetes (Resolved) a. Acute blood loss anemia due to UGI bleed admitted with coffee ground emesis Hb today is 9.3. Still complains of nausea nd vomiting on IV protonix drip eliquis on hold currently. Has NG tube in place General surgery on board. For EGD tomorrow on account of her having been on Eliquis. 2. Upper GI bleed possibly from Eliquis or peptic ulcer disease as under 1. 3. Chronic abdominal wound infection s/p partial vulvectomy adn debridement Currently on antibiotics. Will continue.\ 4. Diabetes mellitus with diabetes neuropathy: Accu-Cheks AC at bedtime. Insulin sliding scale. s/p left BKA o.a of diabetic foot ulcer with osteomyelitis 5. CKD stage 3: Creatinine is 2.1 with a GFR of 31. Will monitor. 6. Chronic hypoxic respiratory failure: Titrate oxygen to maintain saturation above 92%. 7. Bipolar disorder, anxiety and depression: on Venlafaxine and seroquel DVT prophylaxis; SCDs CODE STATUS: DNR CCA Code Visit Inpatient E&M: 31291 Subs Hosp L3
--- NOTE | 2018-06-11 13:42 | PN_ITS ---
Patient Problems: Active and Suspected Problems GI bleed (Acute) Subjective: Patient seen and examined. She was admitted with a complaint of coffee-ground emesis and diarrhea. Hemoglobin was noted to be 7.7 in her [facility] and she says she was transfused with blood and had an transfusion there. She has been admitted for upper GI bleed. Patient was very upset this morning because she said she was still vomiting and had severe nausea and went to the EGD to be done today instead of tomorrow. She was generally very upset at how ill she had pain for the past few months, with her having had cellulitis needing debridement and she thinks it has not been healing well. Review of systems otherwise negative. Labs and vitals reviewed. Vitals/I&O's: Vital Signs Temp Pulse Resp BP Pulse Ox 98 F 94 15 108/72 100 06/11/18 09:35 06/11/18 12:22 06/11/18 09:35 06/11/18 09:35 06/11/18 11:58 Oxygen Delivery Method Room Air Weight: 297 lb 2.93 oz Body Mass Index (BMI) 52.6 Finger Stick Blood Glucose 122 Intake and Output for Last 24 Hours 06/09/18 06/10/18 06/11/18 23:59 23:59 23:59 Intake Total 1696 / 1696 Output Total 750 / 750 800 / 800 Balance -750 / -750 896 / 896 General: Alert, Oriented x3, Cooperative, - - very distressed and tearful HEENT: Atraumatic, PERRLA, EOMI, Normocephalic, - - NG tube in place draining bilious fluid Oral: Dry Mucosa Neck: Supple, No JVD, Negative Carotid Bruits Lungs: Clear to auscultation, Normal air movement, No rhonchi, No wheeze, No rales Cardiovascular: Regular rate, Regular Rhythm, Normal S1, Normal S2, No murmurs Abdomen: Bowel Sounds Present, Soft, Non-Distended, - - mild tenderness in lower abdomen, where over area of wound dressing. Extremities: No clubbing, No cyanosis, No edema, - - left BKA. Skin: - - clean dressing over lower abdominal wall and suprapubic area. Musculoskeletal: No Tenderness to Palpation of Joints or Extremities Lymphatic: No Cervical, Supraclavicular, or Inguinal Adenopathy Neurological: Cranial nerves II-XII grossly intact Psych/Mental Status: Agitated, Alert and oriented to time, place, person, mood and affect Microbiology Past 72 Hours 06/10/18 10:35 Vomitus Gastric Occult Blood - Final Occult Blood Positive Laboratory Results 06/10/18 15:15: Hgb 8.4 L, Hct 27.8 L 06/10/18 18:39: POC Glucose 158 H 06/10/18 20:50: Hgb 8.3 L, Hct 25.8 L 06/10/18 23:26: POC Glucose 132 H 06/11/18 02:27: POC Glucose 141 H 06/11/18 03:24: WBC 20.8 H, RBC 3.56 L, Hgb 9.3 L, Hct 30.1 L, MCV 84.6, MCH 26.1 L, MCHC 30.9 L, RDW 17.4 H, RDW Differential 52.4 H, Plt Count 404, MPV 9.5, Immature Gran % (Auto) 0.400, Neut % (Auto) 85.3 H, Lymph % (Auto) 5.8 L, [place] % (Auto) 7.1, Eos % (Auto) 0.9, Baso % (Auto) 0.5, Absolute Neuts (auto) 17.7 H, Absolute Lymphs (auto) 1.21, Total Counted Not Reportable 06/11/18 03:24: Sodium 143, Potassium 3.5, Chloride 111 H, Carbon Dioxide 18.0 L , Anion Gap 14, BUN 41 H, Creatinine 2.10 H, Estim Creat Clear Calc 22.53, Est GFR (MDRD) Af Amer 31 L, Est GFR (MDRD) Non-Af 26 L, BUN/Creatinine Ratio 19.5, Glucose 143 H, Calcium 8.8 06/11/18 06:03: POC Glucose 132 H 06/11/18 09:50: POC Glucose 133 H Diagnostic Data KUB X-Ray 06/10/18 09:33 IMPRESSION: The tip of the nasogastric tube is in the distal portion of the stomach. Electronically Signed: Abdirizak Courtney, at 11:54 EDT , Service support , Current Medications Acetaminophen (Tylenol) 650 mg PO Q6H PRN PRN PRN Reason: FEVER Bisacodyl (Dulcolax) 10 mg RECTAL DAILY PRN PRN PRN Reason: Constipation Dextrose (D50w Syringe) 0 gm IV X1 PRN; Protocol PRN Reason: Hypoglycemia Glucagon () 1 mg IM .X1 PRN PRN Reason: Hypoglycemia Sodium Chloride () 1,000 mls @ 100 mls/hr IV .Q10H [facility] Last Admin: 06/11/18 09:48 Dose: 100 mls/hr Pantoprazole Sodium 80 mg/ (Sodium Chloride) 100 mls @ 10 mls/hr CONT INF Q10H [facility] Last Admin: 06/11/18 02:21 Dose: 10 mls/hr Piperacillin Sod/Tazobactam (Sod 3.375 gm/ Sodium Chloride) 50 mls @ 12.5 mls/hr IV Q8 [facility] Last Admin: 06/11/18 06:06 Dose: 12.5 mls/hr Insulin Human Lispro (Humalog Kwikpen (Bkc)) 0 unit SQ Q4 [facility]; Protocol Last Admin: 06/11/18 09:51 Dose: Not Given Morphine Sulfate () 2 mg IV Q3H PRN PRN PRN Reason: SEVERE PAIN (6-10/10) Nystatin (Mycostatin Powder) 1 applic TOPICAL BID [facility]; Protocol Last Admin: 06/11/18 09:49 Dose: 1 applicatio Ondansetron HCl (Zofran) 4 mg IV Q8H PRN PRN PRN Reason: NAUSEA Last Admin: 06/11/18 09:48 Dose: 4 mg Sodium Chloride () 5 - 15 ml IV UD PRN PRN Reason: SALINE FLUSH Medical Necessity - Tobacco Use Smoking Status: Former smoker Assessment/Plan All Active Problems GI bleed (Acute) Necrotizing soft tissue infection (Acute) Ulcer of abdomen wall with fat layer exposed (Acute) Abdominal wall abscess (Acute) Ulceration, vulva (Acute) Vulvar abscess (Acute) Gastroenteritis (Acute) Anemia in chronic kidney disease (Acute) Osteomyelitis of foot, right, acute (Acute) UTI (urinary tract infection) (Acute) Sepsis (Acute) Neutrophilic leukocytosis (Acute) Cellulitis of right foot (Acute) Diabetic ulcer of right foot (Acute) MSSA (methicillin susceptible Staphylococcus aureus) (Resolved) Mycotic cystitis (Resolved) Osteomyelitis (Resolved) Osteomyelitis due to secondary diabetes (Resolved) a. Acute blood loss anemia due to UGI bleed * admitted with coffee ground emesis * Hb today is 9.3. Still complains of nausea nd vomiting * on IV protonix drip * eliquis on hold currently. Has NG tube in place * General surgery on board. For EGD tomorrow on account of her having been on Eliquis. * 2. Upper GI bleed possibly from Eliquis or peptic ulcer disease * as under 1. * 3. Chronic abdominal wound infection s/p partial vulvectomy adn debridement * Currently on antibiotics. Will continue.\ * * 4. Diabetes mellitus with diabetes neuropathy: * Accu-Cheks AC at bedtime. Insulin sliding scale. * s/p left BKA o.a of diabetic foot ulcer with osteomyelitis 5. CKD stage 3: Creatinine is 2.1 with a GFR of 31. Will monitor. 6. Chronic hypoxic respiratory failure: Titrate oxygen to maintain saturation above 92%. 7. Bipolar disorder, anxiety and depression: on Venlafaxine and seroquel DVT prophylaxis; SCDs CODE STATUS: DNR CCA Code Visit Inpatient E&M: 26322 Subs Hosp L3
[2018-06-11] MEDS: 0.9% NaCl Peripheral Flush Adult/Peds IV (14:02)
[2018-06-11] MEDS: Morphine 2 MG/ML Syringe IV (14:03)
[2018-06-11 14:20] LABS: Bedside Glucose 116 mg/dL (70-110)
--- NOTE | 2018-06-11 15:13 | CASEMGMT ---
STEPHAN faxed updates to [facility]. Amber [employer]NAGEMENT
--- NOTE | 2018-06-11 15:45 | NURSING ---
wound photo: left lower abdomen
--- NOTE | 2018-06-11 15:46 | NURSING ---
wound photo: abdomen
[2018-06-11 18:31] LABS: Bedside Glucose 108 mg/dL (70-110)
[2018-06-11 23:06] LABS: Bedside Glucose 117 mg/dL (70-110)
[2018-06-12] VITALS (15 sets, daily range): BP systolic 106–137; BP diastolic 52–83; PULSE 70–98; RESP 16–20; TEMP 36–36.7; O2SAT 92–100
[2018-06-12 03:36] LABS: Bedside Glucose 118 mg/dL (70-110)
[2018-06-12] MEDS: Ondansetron 4 MG/2 ML Vial IV (06:01)
[2018-06-12] MEDS: 0.9% Normal Saline 1,000 ML 100 ML IV ×2 (06:05→13:20)
[2018-06-12 06:13] LABS: Absolute Lymphocyte Count 1.24 X10^3/ul (0.83-4.51); Absolute Neutrophil Count 11.5 X10^3/uL (2.0-7.7); Basophil# 0.09 X10^3/uL; Basophil% 0.6 % (0-1); Eosinophil# 0.44 X10^3/uL; Eosinophils% 3.1 % (0-5); Lymphocyte # 1.24 X10^3/ul (4.0); Lymphocyte % 8.7 % (19-41); Mean Corp Hgb Conc 29.6 g/gl (32-36); Mean Corpuscular Hgb 25.5 pg (27.0-32.0); Mean Platelet Vol. 9.1 fl (6.2-12.0); Monocyte# 0.97 X10^3/uL; Monocyte% 6.8 % (0-10); Neutrophil # 11.48 X10^3/uL (2.7-7.7); Neutrophil % 80.5 % (47-70); Platelet Count 402 K/mm3 (150-450); RBC Distribution Width CV 17.5 % (11.6-14.6); RBC Distribution Width SD 53.4 fl (35.1-43.9); Red Blood Count 3.14 M/mm3 (4.2-5.4); White Blood Count 14.3 K/mm3 (4.4-11.0)
[2018-06-12 06:19] LABS: POSITIVE COUNT NO; POSITIVE DIFFERENTIAL NO; POSITIVE MORPHOLOGY NO
[2018-06-12 06:30] LABS: Anion Gap 10 (5-15); BUN 39 mg/dL (7-18); BUN/Creat Ratio 18.5 RATIO (10-20); Calcium,Total 8.6 mg/dL (8.5-10.1); Chloride 115 mmol/L (98-107); Creatinine, Serum 2.11 mg/dL (0.55-1.02); EST Glomerular Filtration Rate 25 mL/min (>60); Est Glom Filt Rate - Afr Amer 31 mL/min (>60); Estimated Creatinine Clearance 23.45 ml/min; Glucose 125 mg/dL (74-106); Potassium 4.1 mmol/L (3.5-5.1); Sodium Level 145 mmol/L (136-145)
[2018-06-12 06:40] LABS: Bedside Glucose 113 mg/dL (70-110)
--- NOTE | 2018-06-12 10:00 | EGD_PTH ---
PATIENT: ALKA JENSEN LOC: PCU U#:[id number] AGE/SX: 62/F ROOM: [facility] RE06/10/[address]: Dr. Inés Colunga MD : [id number] BED: 1 DIS: 06/14/2018 SPEC #: [id number] RECD: 06/12/18 11:45 STATUS: SARAH MANASA #: [id number] LAZARA: 06/12/18 10:[address]: Alfonzo Cueva DEPT: SURGICAL PATHOLOGY RECD BY: Juvenal Velazquez ENTERED: 06/12/18 13:25 SP TYPE: EGD BIOPSY OTHR DR: MD Dr. Isac Kelley MD Dr. Paul Nielsen, MD Tissues: Gastric mucous membrane Procedures: PAS Fungus (control) Special Stain Group II Special Stain Group I Surgery Specimen Level IV Alcian Blue/PAS (control) HEADER OPERATION: EGD (MAC) PRE-OP DIAGNOSIS: Upper GI bleed TISSUE SUBMITTED: GE junction biopsy MICROSCOPIC DIAGNOSIS GE junction, biopsy: Fragments of gastroesophageal mucosa with acute and chronic inflammation, changes consistent with gastroesophageal disease. Intestinal metaplasia (goblet cell metaplasia) is not identified. Special stain for fungi is negative for organisms; matched control is appropriate. BETH:cherise 06/13/18 COMMENT Alcian blue/PAS stain with matched control is used in the evaluation of the specimen. MICROSCOPIC DESCRIPTION Slides are reviewed. GROSS DESCRIPTION Received in fixative is one container labeled with the patient's name and designated GE junction. The specimen consists of multiple irregular fragments of light elliott soft tissue that in aggregate measure 1 x 0.3 x 0.1 cm. The specimen is totally submitted in one cassette. / AM:cherise 06/12/18 TC:2 CPT: 88972, 70771, 98556
--- NOTE | 2018-06-12 10:00 | NURSING ---
report called to jelly gerber rn
--- NOTE | 2018-06-12 11:05 | PCM.PN.HOSP ---
Patient Problems: Active and Suspected Problems GI bleed (Acute) Subjective: Patient seen and examined. She had an uneventful night. Review of systems otherwise negative. Labs and vitals reviewed. She is to have EGD today. She did not have any coffee-ground emesis overnight. NG tube draining clear fluid today. Vitals/I&O's: Vital Signs Temp Pulse Resp BP Pulse Ox 98.1 F 92 18 118/61 99 06/12/18 06:13 06/12/18 07:31 06/12/18 06:13 06/12/18 06:13 06/12/18 06:13 Oxygen Delivery Method Room Air Weight: 297 lb 2.93 oz Body Mass Index (BMI) 52.6 Finger Stick Blood Glucose 122 Intake and Output for Last 24 Hours 06/10/18 06/11/18 06/12/18 23:59 23:59 23:59 Intake Total 3131 / 3131 879 / 879 Output Total 750 / 750 1260 / 1260 225 / 225 Balance -750 / -750 1871 / 1871 654 / 654 General: Alert, Oriented x3, Cooperative, HEENT: Atraumatic, PERRLA, EOMI, Normocephalic, - - NG tube in place draining bilious fluid Oral: Dry Mucosa Neck: Supple, No JVD, Negative Carotid Bruits Lungs: Clear to auscultation, Normal air movement, No rhonchi, No wheeze, No rales Cardiovascular: Regular rate, Regular Rhythm, Normal S1, Normal S2, No murmurs Abdomen: Bowel Sounds Present, Soft, Non-Distended, - - mild tenderness in lower abdomen, where over area of wound dressing. Extremities: No clubbing, No cyanosis, No edema, - - left BKA. Skin: - - clean dressing over lower abdominal wall and suprapubic area. Musculoskeletal: No Tenderness to Palpation of Joints or Extremities Lymphatic: No Cervical, Supraclavicular, or Inguinal Adenopathy Neurological: Cranial nerves II-XII grossly intact Psych/Mental Status: Agitated, Alert and oriented to time, place, person, mood and affect Microbiology Past 72 Hours 06/10/18 10:35 Vomitus Gastric Occult Blood - Final Occult Blood Positive Laboratory Results 06/11/18 14:02: POC Glucose 116 H 06/11/18 18:25: POC Glucose 108 06/11/18 22:48: POC Glucose 117 H 06/12/18 03:32: POC Glucose 118 H 06/12/18 05:45: WBC 14.3 H, RBC 3.14 L, Hgb 8.0 L, Hct 27.0 L, MCV 86.0, MCH 25.5 L, MCHC 29.6 L, RDW 17.5 H, RDW Differential 53.4 H, Plt Count 402, MPV 9.1, Immature Gran % (Auto) 0.300, Neut % (Auto) 80.5 H, Lymph % (Auto) 8.7 L, [place] % (Auto) 6.8, Eos % (Auto) 3.1, Baso % (Auto) 0.6, Absolute Neuts (auto) 11.5 H, Absolute Lymphs (auto) 1.24, Total Counted Not Reportable 06/12/18 05:45: Sodium 145, Potassium 4.1, Chloride 115 H, Carbon Dioxide 20.0 L, Anion Gap 10, BUN 39 H, Creatinine 2.11 H, Estim Creat Clear Calc 23.45, Est GFR (MDRD) Af Amer 31 L, Est GFR (MDRD) Non-Af 25 L, BUN/Creatinine Ratio 18.5, Glucose 125 H, Calcium 8.6 06/12/18 05:58: POC Glucose 113 H Current Medications Acetaminophen (Tylenol) 650 mg PO Q6H PRN PRN PRN Reason: FEVER Bisacodyl (Dulcolax) 10 mg RECTAL DAILY PRN PRN PRN Reason: Constipation Dextrose (D50w Syringe) 0 gm IV X1 PRN; Protocol PRN Reason: Hypoglycemia Glucagon () 1 mg IM .X1 PRN PRN Reason: Hypoglycemia Sodium Chloride () 1,000 mls @ 100 mls/hr IV .Q10H [facility] Last Admin: 06/12/18 06:05 Dose: 100 mls/hr Piperacillin Sod/Tazobactam (Sod 3.375 gm/ Sodium Chloride) 50 mls @ 12.5 mls/hr IV Q8 [facility] Last Admin: 06/12/18 06:06 Dose: 12.5 mls/hr Pantoprazole Sodium 40 mg/ (Sodium Chloride) 110 mls @ 330 mls/hr IV Q12 [facility] Insulin Human Lispro (Humalog Kwikpen (Bkc)) 0 unit SQ Q4 [facility]; Protocol Last Admin: 06/12/18 06:19 Dose: Not Given Morphine Sulfate () 2 mg IV Q3H PRN PRN PRN Reason: SEVERE PAIN (6-10/10) Last Admin: 06/11/18 14:03 Dose: 2 mg Nystatin (Mycostatin Powder) 1 applic TOPICAL BID [facility]; Protocol Last Admin: 06/11/18 22:44 Dose: 1 applicatio Ondansetron HCl (Zofran) 4 mg IV Q8H PRN PRN PRN Reason: NAUSEA Last Admin: 06/12/18 06:01 Dose: 4 mg Sodium Chloride () 5 - 15 ml IV UD PRN PRN Reason: SALINE FLUSH Last Admin: 06/11/18 14:02 Dose: 10 ml Medical Necessity - Tobacco Use Smoking Status: Former smoker Assessment/Plan All Active Problems GI bleed (Acute) Necrotizing soft tissue infection (Acute) Ulcer of abdomen wall with fat layer exposed (Acute) Abdominal wall abscess (Acute) Ulceration, vulva (Acute) Vulvar abscess (Acute) Gastroenteritis (Acute) Anemia in chronic kidney disease (Acute) Osteomyelitis of foot, right, acute (Acute) UTI (urinary tract infection) (Acute) Sepsis (Acute) Neutrophilic leukocytosis (Acute) Cellulitis of right foot (Acute) Diabetic ulcer of right foot (Acute) MSSA (methicillin susceptible Staphylococcus aureus) (Resolved) Mycotic cystitis (Resolved) Osteomyelitis (Resolved) 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 Acute blood loss anemia due to UGI bleed admitted with coffee ground emesis Hb today is 8. on IV protonix drip; will switch to PO protonix 40mg bid. eliquis on hold currently. for EGD today- showed lesion at the GE junction. Biopsies done. to keep off blood thinners for now until pathology report is back for further management to be determined. 2. Upper GI bleed possibly from Eliquis or peptic ulcer disease as under 1. 3. Chronic abdominal wound infection s/p partial vulvectomy and debridement Currently on antibiotics. Will continue. white cell count is down to 14.3 today. 4. Diabetes mellitus with diabetes neuropathy: Accu-Cheks AC at bedtime. Insulin sliding scale. s/p left BKA o.a of diabetic foot ulcer with osteomyelitis 5. CKD stage 3: Creatinine is 2.11 with a GFR of 31. Will monitor. 6. Chronic hypoxic respiratory failure: Titrate oxygen to maintain saturation above 92%. 7. Non anion gap metabolic acidosis anion gap today is 10, bicarb is 20. likely due to CKD. WIll monitor 8. Bipolar disorder, anxiety and depression: on Venlafaxine and seroquel DVT prophylaxis; SCDs CODE STATUS: DNR CCA Code Visit Inpatient E&M: 13706 Subs Hosp L3
--- NOTE | 2018-06-12 11:11 | PN_ITS ---
Patient Problems: Active and Suspected Problems GI bleed (Acute) Subjective: Patient seen and examined. She had an uneventful night. Review of systems otherwise negative. Labs and vitals reviewed. She is to have EGD today. She did not have any coffee-ground emesis overnight. NG tube draining clear fluid today. Vitals/I&O's: Vital Signs Temp Pulse Resp BP Pulse Ox 98.1 F 92 18 118/61 99 06/12/18 06:13 06/12/18 07:31 06/12/18 06:13 06/12/18 06:13 06/12/18 06:13 Oxygen Delivery Method Room Air Weight: 297 lb 2.93 oz Body Mass Index (BMI) 52.6 Finger Stick Blood Glucose 122 Intake and Output for Last 24 Hours 06/10/18 06/11/18 06/12/18 23:59 23:59 23:59 Intake Total 3131 / 3131 879 / 879 Output Total 750 / 750 1260 / 1260 225 / 225 Balance -750 / -750 1871 / 1871 654 / 654 General: Alert, Oriented x3, Cooperative, HEENT: Atraumatic, PERRLA, EOMI, Normocephalic, - - NG tube in place draining bilious fluid Oral: Dry Mucosa Neck: Supple, No JVD, Negative Carotid Bruits Lungs: Clear to auscultation, Normal air movement, No rhonchi, No wheeze, No rales Cardiovascular: Regular rate, Regular Rhythm, Normal S1, Normal S2, No murmurs Abdomen: Bowel Sounds Present, Soft, Non-Distended, - - mild tenderness in lower abdomen, where over area of wound dressing. Extremities: No clubbing, No cyanosis, No edema, - - left BKA. Skin: - - clean dressing over lower abdominal wall and suprapubic area. Musculoskeletal: No Tenderness to Palpation of Joints or Extremities Lymphatic: No Cervical, Supraclavicular, or Inguinal Adenopathy Neurological: Cranial nerves II-XII grossly intact Psych/Mental Status: Agitated, Alert and oriented to time, place, person, mood and affect Microbiology Past 72 Hours 06/10/18 10:35 Vomitus Gastric Occult Blood - Final Occult Blood Positive Laboratory Results 06/11/18 14:02: POC Glucose 116 H 06/11/18 18:25: POC Glucose 108 06/11/18 22:48: POC Glucose 117 H 06/12/18 03:32: POC Glucose 118 H 06/12/18 05:45: WBC 14.3 H, RBC 3.14 L, Hgb 8.0 L, Hct 27.0 L, MCV 86.0, MCH 25.5 L, MCHC 29.6 L, RDW 17.5 H, RDW Differential 53.4 H, Plt Count 402, MPV 9.1, Immature Gran % (Auto) 0.300, Neut % (Auto) 80.5 H, Lymph % (Auto) 8.7 L, [place] % (Auto) 6.8, Eos % (Auto) 3.1, Baso % (Auto) 0.6, Absolute Neuts (auto) 11.5 H, Absolute Lymphs (auto) 1.24, Total Counted Not Reportable 06/12/18 05:45: Sodium 145, Potassium 4.1, Chloride 115 H, Carbon Dioxide 20.0 L , Anion Gap 10, BUN 39 H, Creatinine 2.11 H, Estim Creat Clear Calc 23.45, Est GFR (MDRD) Af Amer 31 L, Est GFR (MDRD) Non-Af 25 L, BUN/Creatinine Ratio 18.5, Glucose 125 H, Calcium 8.6 06/12/18 05:58: POC Glucose 113 H Current Medications Acetaminophen (Tylenol) 650 mg PO Q6H PRN PRN PRN Reason: FEVER Bisacodyl (Dulcolax) 10 mg RECTAL DAILY PRN PRN PRN Reason: Constipation Dextrose (D50w Syringe) 0 gm IV X1 PRN; Protocol PRN Reason: Hypoglycemia Glucagon () 1 mg IM .X1 PRN PRN Reason: Hypoglycemia Sodium Chloride () 1,000 mls @ 100 mls/hr IV .Q10H [facility] Last Admin: 06/12/18 06:05 Dose: 100 mls/hr Piperacillin Sod/Tazobactam (Sod 3.375 gm/ Sodium Chloride) 50 mls @ 12.5 mls/hr IV Q8 [facility] Last Admin: 06/12/18 06:06 Dose: 12.5 mls/hr Pantoprazole Sodium 40 mg/ (Sodium Chloride) 110 mls @ 330 mls/hr IV Q12 [facility] Insulin Human Lispro (Humalog Kwikpen (Bkc)) 0 unit SQ Q4 [facility]; Protocol Last Admin: 06/12/18 06:19 Dose: Not Given Morphine Sulfate () 2 mg IV Q3H PRN PRN PRN Reason: SEVERE PAIN (6-10/10) Last Admin: 06/11/18 14:03 Dose: 2 mg Nystatin (Mycostatin Powder) 1 applic TOPICAL BID [facility]; Protocol Last Admin: 06/11/18 22:44 Dose: 1 applicatio Ondansetron HCl (Zofran) 4 mg IV Q8H PRN PRN PRN Reason: NAUSEA Last Admin: 06/12/18 06:01 Dose: 4 mg Sodium Chloride () 5 - 15 ml IV UD PRN PRN Reason: SALINE FLUSH Last Admin: 06/11/18 14:02 Dose: 10 ml Medical Necessity - Tobacco Use Smoking Status: Former smoker Assessment/Plan All Active Problems GI bleed (Acute) Necrotizing soft tissue infection (Acute) Ulcer of abdomen wall with fat layer exposed (Acute) Abdominal wall abscess (Acute) Ulceration, vulva (Acute) Vulvar abscess (Acute) Gastroenteritis (Acute) Anemia in chronic kidney disease (Acute) Osteomyelitis of foot, right, acute (Acute) UTI (urinary tract infection) (Acute) Sepsis (Acute) Neutrophilic leukocytosis (Acute) Cellulitis of right foot (Acute) Diabetic ulcer of right foot (Acute) MSSA (methicillin susceptible Staphylococcus aureus) (Resolved) Mycotic cystitis (Resolved) Osteomyelitis (Resolved) 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 Acute blood loss anemia due to UGI bleed * admitted with coffee ground emesis * Hb today is 8. * on IV protonix drip; will switch to PO protonix 40mg bid. * eliquis on hold currently. * for EGD today- showed lesion at the GE junction. Biopsies done. * to keep off blood thinners for now until pathology report is back for further management to be determined. * 2. Upper GI bleed possibly from Eliquis or peptic ulcer disease * as under 1. * 3. Chronic abdominal wound infection s/p partial vulvectomy and debridement * Currently on antibiotics. Will continue. * white cell count is down to 14.3 today. * 4. Diabetes mellitus with diabetes neuropathy: * Accu-Cheks AC at bedtime. Insulin sliding scale. * s/p left BKA o.a of diabetic foot ulcer with osteomyelitis 5. CKD stage 3: * Creatinine is 2.11 with a GFR of 31. Will monitor. 6. Chronic hypoxic respiratory failure: Titrate oxygen to maintain saturation above 92%. 7. Non anion gap metabolic acidosis * anion gap today is 10, bicarb is 20. * likely due to CKD. WIll monitor * 8. Bipolar disorder, anxiety and depression: on Venlafaxine and seroquel DVT prophylaxis; SCDs CODE STATUS: DNR CCA Code Visit Inpatient E&M: 12223 Subs Hosp L3
--- NOTE | 2018-06-12 11:23 | OP.ENDO_ITS ---
06/12/2018 Leroy Marie MD [address] [id number] Re : Upper GI endoscopy procedure for Dianne Delgado Dear Dr. Marie This procedure was performed on May. My impressions and recommendations are as follows: Impressions : - Normal stomach. - Normal examined duodenum. - Esophageal mucosal variant. Biopsied. Recommendations : - Await pathology results. - Return patient to [facility] for ongoing care. - Clear liquid diet and advance - Continue to hold blood thinners - Continue present medications. My findings are described in the full procedure note, which is enclosed. If I can be of further assistance, please feel free to contact me at Doctor phone number(s): , Work: . Sincerely, Alfonzo Cueva MD 06/12/2018 11:22:47 AM This report has been signed electronically.
--- NOTE | 2018-06-12 11:24 | PN_ITS ---
Progress Note Patient had EGD this morning. NG was removed. Patient had a friable soft tissue lesion at the GE junction. This was biopsied with cold forceps. Oozing seemed to settle down at the end of the case and there was minimal active bleeding at the end of the surgery. I would start her on a clear liquid diet and she can advance to a soft diet today. I would not start her blood thinners back up. Await pathology. Patient had no ulcers or duodenal blood. Alfonzo Cueva MD Pager: [facility] [address] [place] [address] [address] [place] [address] Office:
[2018-06-12] MEDS: Nystatin Powder 15gm Bottle 1 APPLIC TOPICAL ×2 (13:18→21:23)
[2018-06-12 13:40] LABS: Bedside Glucose 107 mg/dL (70-110)
[2018-06-12 18:36] LABS: Bedside Glucose 154 mg/dL (70-110)
[2018-06-12] MEDS: Morphine 2 MG/ML Syringe IV (21:34)
[2018-06-12] MEDS: 0.9% NaCl Peripheral Flush Adult/Peds IV (21:34)
[2018-06-12] MEDS: Insulin Lispro 100 UNIT/ML INSULN.PEN SQ (21:35)
[2018-06-12 21:55] LABS: Bedside Glucose 199 mg/dL (70-110)
[2018-06-13] VITALS (12 sets, daily range): BP systolic 116–118; BP diastolic 65–79; PULSE 76–142; RESP 16–18; TEMP 36.3–36.9; O2SAT 95–98
[2018-06-13] MEDS: 0.9% Normal Saline 1,000 ML 100 ML IV (00:02)
[2018-06-13] MEDS: Insulin Lispro 100 UNIT/ML INSULN.PEN SQ ×5 (02:46→21:03)
[2018-06-13 03:01] LABS: Bedside Glucose 151 mg/dL (70-110)
[2018-06-13] MEDS: 0.9% NaCl Peripheral Flush Adult/Peds IV ×2 (04:59→05:00)
[2018-06-13 05:26] LABS: Absolute Lymphocyte Count 1.24 X10^3/ul (0.83-4.51); Absolute Neutrophil Count 11.3 X10^3/uL (2.0-7.7); Basophil# 0.11 X10^3/uL; Basophil% 0.8 % (0-1); Eosinophil# 0.47 X10^3/uL; Eosinophils% 3.3 % (0-5); Hematocrit 25.7 % (37-47); Lymphocyte # 1.24 X10^3/ul (4.0); Lymphocyte % 8.7 % (19-41); Mean Corp Hgb Conc 31.1 g/gl (32-36); Mean Corpuscular Volume 83.4 fL (81-99); Mean Platelet Vol. 8.7 fl (6.2-12.0); Monocyte# 1.05 X10^3/uL; Monocyte% 7.4 % (0-10); Neutrophil # 11.32 X10^3/uL (2.7-7.7); Neutrophil % 79.2 % (47-70); Platelet Count 390 K/mm3 (150-450); RBC Distribution Width CV 17.9 % (11.6-14.6); RBC Distribution Width SD 54.6 fl (35.1-43.9); Red Blood Count 3.08 M/mm3 (4.2-5.4); White Blood Count 14.3 K/mm3 (4.4-11.0)
[2018-06-13 05:29] LABS: Anion Gap 10 (5-15); BUN 34 mg/dL (7-18); Calcium,Total 8.2 mg/dL (8.5-10.1); Chloride 117 mmol/L (98-107); Creatinine, Serum 2.13 mg/dL (0.55-1.02); EST Glomerular Filtration Rate 25 mL/min (>60); Est Glom Filt Rate - Afr Amer 30 mL/min (>60); Estimated Creatinine Clearance 23.23 ml/min; Glucose 158 mg/dL (74-106); Sodium Level 147 mmol/L (136-145)
[2018-06-13 05:32] LABS: POSITIVE COUNT NO; POSITIVE DIFFERENTIAL NO; POSITIVE MORPHOLOGY NO
[2018-06-13 05:56] LABS: Bedside Glucose 152 mg/dL (70-110)
--- NOTE | 2018-06-13 07:46 | PCM.PN.SRG ---
Patient Problems: Active and Suspected Problems GI bleed (Acute) Subjective: Patient had no bloody emesis overnight. - Physical Exam General: Alert, Oriented x3 Cardiovascular: Regular rate, Regular Rhythm Abdomen: Soft, Non-Distended, Tender Vital Signs Temp Pulse Resp BP Pulse Ox 98.4 F 89 18 118/65 95 06/13/18 03:00 06/13/18 03:23 06/13/18 03:00 06/13/18 03:00 06/13/18 07:31 Oxygen Delivery Method Room Air Weight: 307 lb 5.19 oz Body Mass Index (BMI) 52.6 Finger Stick Blood Glucose 122 Intake and Output for Last 24 Hours 06/11/18 06/12/18 06/13/18 23:59 23:59 23:59 Intake Total 3131 / 3131 3776 / 3776 1378 / 1378 Output Total 1260 / 1260 850 / 850 200 / 200 Balance 1871 / 1871 2926 / 2926 1178 / 1178 Microbiology Past 72 Hours 06/10/18 11:45 Blood Culture - Preliminary Blood Culture (Wb) #2 - Anticubital Right No growth in 48 hours. 06/10/18 11:38 Blood Culture - Preliminary Blood Culture (Wb) #2 - Anticubital Left No growth in 48 hours. 06/10/18 10:35 Gastric Occult Blood - Final Vomitus Occult Blood Positive Laboratory Tests Past 24 Hrs 06/13/18 06/13/18 04:55 04:55 WBC 14.3 H RBC 3.08 L Hgb 8.0 L Hct 25.7 L MCV 83.4 MCH 26.0 L MCHC 31.1 L RDW 17.9 H RDW Differential 54.6 H Plt Count 390 MPV 8.7 Immature Gran % (Auto) 0.600 Neut % (Auto) 79.2 H Lymph % (Auto) 8.7 L [place] % (Auto) 7.4 Eos % (Auto) 3.3 Baso % (Auto) 0.8 Absolute Neuts (auto) 11.3 H Absolute Lymphs (auto) 1.24 Total Counted Not Reportable Sodium 147 H Potassium 3.0 L Chloride 117 H Carbon Dioxide 20.0 L Anion Gap 10 BUN 34 H Creatinine 2.13 H Estim Creat Clear Calc 23.23 Est GFR (MDRD) Af Amer 30 L Est GFR (MDRD) Non-Af 25 L BUN/Creatinine Ratio 16.0 Glucose 158 H Calcium 8.2 L POC Glucose 06/13/18 06/13/18 06/12/18 05:40 02:44 21:19 POC Glucose 152 H 151 H 199 H 06/12/18 06/12/18 18:22 13:27 POC Glucose 154 H 107 Medical Necessity - Tobacco Use Smoking Status: Former smoker Assessment/Plan All Active Problems GI bleed (Acute) Necrotizing soft tissue infection (Acute) Ulcer of abdomen wall with fat layer exposed (Acute) Abdominal wall abscess (Acute) Ulceration, vulva (Acute) Vulvar abscess (Acute) Gastroenteritis (Acute) Anemia in chronic kidney disease (Acute) Osteomyelitis of foot, right, acute (Acute) UTI (urinary tract infection) (Acute) Sepsis (Acute) Neutrophilic leukocytosis (Acute) Cellulitis of right foot (Acute) Diabetic ulcer of right foot (Acute) MSSA (methicillin susceptible Staphylococcus aureus) (Resolved) Mycotic cystitis (Resolved) Osteomyelitis (Resolved) Osteomyelitis due to secondary diabetes (Resolved) 62-year-old female upper GI bleed 1. Patient had a small soft tissue mass at the GE junction which is likely the cause of her upper GI bleed. I would advance her diet to a soft diet but keep her off of her blood thinners. 2. Await pathology Alfonzo Cueva MD Pager: [facility] [address] [place] [address], [address] [place] [phone] Office:
[2018-06-13 10:36] LABS: Bedside Glucose 159 mg/dL (70-110)
--- NOTE | 2018-06-13 14:04 | PCM.PN.HOSP ---
Patient Problems: Active and Suspected Problems GI bleed (Acute) Subjective: Patient seen and examined. She complains of feeling tired and wanting to sleep. She denies any chest pain, palpitations or dizziness, abdominal pain, diarrhea vomiting. She denies any coffee-ground emesis overnight. Labs and vitals reviewed. Dysphagia junction for which biopsies were taken. Vitals/I&O's: Vital Signs Temp Pulse Resp BP Pulse Ox 98.1 F 76 17 118/75 97 06/13/18 09:00 06/13/18 09:00 06/13/18 09:00 06/13/18 09:00 06/13/18 09:00 Oxygen Delivery Method Room Air Weight: 307 lb 5.19 oz Body Mass Index (BMI) 52.6 Finger Stick Blood Glucose 122 Intake and Output for Last 24 Hours 06/11/18 06/12/18 06/13/18 23:59 23:59 23:59 Intake Total 3131 / 3131 3776 / 3776 2388.3 / 2388.3 Output Total 1260 / 1260 850 / 850 300 / 300 Balance 1871 / 1871 2926 / 2926 2088.3 / 2088.3 General: Alert, Oriented x3, Cooperative, HEENT: Atraumatic, PERRLA, EOMI, Normocephalic, NG tube is out. Oral: Dry Mucosa Neck: Supple, No JVD, Negative Carotid Bruits Lungs: Clear to auscultation, Normal air movement, No rhonchi, No wheeze, No rales Cardiovascular: Regular rate, Regular Rhythm, Normal S1, Normal S2, No murmurs Abdomen: Bowel Sounds Present, Soft, Non-Distended, - - mild tenderness in lower abdomen, where over area of wound dressing. Extremities: No clubbing, No cyanosis, No edema, - - left BKA. Skin: - - clean dressing over lower abdominal wall and suprapubic area. Musculoskeletal: No Tenderness to Palpation of Joints or Extremities Lymphatic: No Cervical, Supraclavicular, or Inguinal Adenopathy Neurological: Cranial nerves II-XII grossly intact Psych/Mental Status: Agitated, Alert and oriented to time, place, person, mood and affect Microbiology Past 72 Hours 06/13/18 07:50 Stool Stool Lactoferrin - Final 06/10/18 11:45 Blood Culture (Wb) #2 - Anticubital Right Blood Culture - Preliminary No growth in 48 hours. 06/10/18 11:38 Blood Culture (Wb) #2 - Anticubital Left Blood Culture - Preliminary No growth in 48 hours. 06/10/18 10:35 Vomitus Gastric Occult Blood - Final Occult Blood Positive Laboratory Results 06/12/18 18:22: POC Glucose 154 H 06/12/18 21:19: POC Glucose 199 H 06/13/18 02:44: POC Glucose 151 H 06/13/18 04:55: WBC 14.3 H, RBC 3.08 L, Hgb 8.0 L, Hct 25.7 L, MCV 83.4, MCH 26.0 L, MCHC 31.1 L, RDW 17.9 H, RDW Differential 54.6 H, Plt Count 390, MPV 8.7, Immature Gran % (Auto) 0.600, Neut % (Auto) 79.2 H, Lymph % (Auto) 8.7 L, [place] % (Auto) 7.4, Eos % (Auto) 3.3, Baso % (Auto) 0.8, Absolute Neuts (auto) 11.3 H, Absolute Lymphs (auto) 1.24, Total Counted Not Reportable 06/13/18 04:55: Sodium 147 H, Potassium 3.0 L, Chloride 117 H, Carbon Dioxide 20.0 L, Anion Gap 10, BUN 34 H, Creatinine 2.13 H, Estim Creat Clear Calc 23.23, Est GFR (MDRD) Af Amer 30 L, Est GFR (MDRD) Non-Af 25 L, BUN/Creatinine Ratio 16.0, Glucose 158 H, Calcium 8.2 L 06/13/18 05:40: POC Glucose 152 H 06/13/18 10:22: POC Glucose 159 H Current Medications Acetaminophen (Tylenol) 650 mg PO Q6H PRN PRN PRN Reason: FEVER Bisacodyl (Dulcolax) 10 mg RECTAL DAILY PRN PRN PRN Reason: Constipation Dextrose (D50w Syringe) 0 gm IV X1 PRN; Protocol PRN Reason: Hypoglycemia Glucagon () 1 mg IM .X1 PRN PRN Reason: Hypoglycemia Piperacillin Sod/Tazobactam (Sod 3.375 gm/ Sodium Chloride) 50 mls @ 12.5 mls/hr IV Q8 [facility] Last Admin: 06/13/18 05:41 Dose: 12.5 mls/hr Pantoprazole Sodium 40 mg/ (Sodium Chloride) 110 mls @ 330 mls/hr IV Q12 [facility] Last Admin: 06/13/18 10:14 Dose: 330 mls/hr Insulin Human Lispro (Humalog Kwikpen (Bkc)) 0 unit SQ Q4 [facility]; Protocol Last Admin: 06/13/18 10:23 Dose: 2 u Morphine Sulfate () 2 mg IV Q3H PRN PRN PRN Reason: SEVERE PAIN (6-10/10) Last Admin: 06/12/18 21:34 Dose: 2 mg Nystatin (Mycostatin Powder) 1 applic TOPICAL BID [facility]; Protocol Last Admin: 06/13/18 10:13 Dose: Not Given Ondansetron HCl (Zofran) 4 mg IV Q8H PRN PRN PRN Reason: NAUSEA Last Admin: 06/12/18 06:01 Dose: 4 mg Sodium Chloride () 5 - 15 ml IV UD PRN PRN Reason: SALINE FLUSH Last Admin: 06/13/18 05:00 Dose: 10 ml Medical Necessity - Tobacco Use Smoking Status: Former smoker Assessment/Plan All Active Problems GI bleed (Acute) Necrotizing soft tissue infection (Acute) Ulcer of abdomen wall with fat layer exposed (Acute) Abdominal wall abscess (Acute) Ulceration, vulva (Acute) Vulvar abscess (Acute) Gastroenteritis (Acute) Anemia in chronic kidney disease (Acute) Osteomyelitis of foot, right, acute (Acute) UTI (urinary tract infection) (Acute) Sepsis (Acute) Neutrophilic leukocytosis (Acute) Cellulitis of right foot (Acute) Diabetic ulcer of right foot (Acute) MSSA (methicillin susceptible Staphylococcus aureus) (Resolved) Mycotic cystitis (Resolved) Osteomyelitis (Resolved) 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 Acute blood loss anemia due to UGI bleed Hb today is 8 s/p EGD which showed lesion in her GE junction biopsies taken on IV protonix 40mg bid eliquis remains on hold advanced to soft diet today per general surgery general surgery on board 2. Upper GI bleed as under 1. 3. Chronic abdominal wound infection s/p partial vulvectomy and debridement Currently on antibiotics- IV zosyn white cell count is stll 14.3 today. 4. [place].lem[place]: K is 3 today. Will replace and monitor. 5. Diabetes mellitus with diabetes neuropathy: Accu-Cheks AC at bedtime. Insulin sliding scale. s/p left BKA o.a of diabetic foot ulcer with osteomyelitis 6. CKD stage 3: Creatinine is 2.11 with a GFR of 31. Will monitor. 7. Chronic hypoxic respiratory failure: Titrate oxygen to maintain saturation above 92%. 8. Non anion gap metabolic acidosis anion gap today is 10, bicarb is still 20. likely due to CKD. WIll monitor 9. Bipolar disorder, anxiety and depression: on Venlafaxine and seroquel DVT prophylaxis; SCDs CODE STATUS: DNR CCA Code Visit Inpatient E&M: 20209 Subs Hosp L3
--- NOTE | 2018-06-13 14:11 | PN_ITS ---
Patient Problems: Active and Suspected Problems GI bleed (Acute) Subjective: Patient seen and examined. She complains of feeling tired and wanting to sleep. She denies any chest pain, palpitations or dizziness, abdominal pain, diarrhea vomiting. She denies any coffee-ground emesis overnight. Labs and vitals reviewed. Dysphagia junction for which biopsies were taken. Vitals/I&O's: Vital Signs Temp Pulse Resp BP Pulse Ox 98.1 F 76 17 118/75 97 06/13/18 09:00 06/13/18 09:00 06/13/18 09:00 06/13/18 09:00 06/13/18 09:00 Oxygen Delivery Method Room Air Weight: 307 lb 5.19 oz Body Mass Index (BMI) 52.6 Finger Stick Blood Glucose 122 Intake and Output for Last 24 Hours 06/11/18 06/12/18 06/13/18 23:59 23:59 23:59 Intake Total 3131 / 3131 3776 / 3776 2388.3 / 2388.3 Output Total 1260 / 1260 850 / 850 300 / 300 Balance 1871 / 1871 2926 / 2926 2088.3 / 2088.3 General: Alert, Oriented x3, Cooperative, HEENT: Atraumatic, PERRLA, EOMI, Normocephalic, NG tube is out. Oral: Dry Mucosa Neck: Supple, No JVD, Negative Carotid Bruits Lungs: Clear to auscultation, Normal air movement, No rhonchi, No wheeze, No rales Cardiovascular: Regular rate, Regular Rhythm, Normal S1, Normal S2, No murmurs Abdomen: Bowel Sounds Present, Soft, Non-Distended, - - mild tenderness in lower abdomen, where over area of wound dressing. Extremities: No clubbing, No cyanosis, No edema, - - left BKA. Skin: - - clean dressing over lower abdominal wall and suprapubic area. Musculoskeletal: No Tenderness to Palpation of Joints or Extremities Lymphatic: No Cervical, Supraclavicular, or Inguinal Adenopathy Neurological: Cranial nerves II-XII grossly intact Psych/Mental Status: Agitated, Alert and oriented to time, place, person, mood and affect Microbiology Past 72 Hours 06/13/18 07:50 Stool Stool Lactoferrin - Final 06/10/18 11:45 Blood Culture (Wb) #2 - Anticubital Right Blood Culture - Preliminary No growth in 48 hours. 06/10/18 11:38 Blood Culture (Wb) #2 - Anticubital Left Blood Culture - Preliminary No growth in 48 hours. 06/10/18 10:35 Vomitus Gastric Occult Blood - Final Occult Blood Positive Laboratory Results 06/12/18 18:22: POC Glucose 154 H 06/12/18 21:19: POC Glucose 199 H 06/13/18 02:44: POC Glucose 151 H 06/13/18 04:55: WBC 14.3 H, RBC 3.08 L, Hgb 8.0 L, Hct 25.7 L, MCV 83.4, MCH 26.0 L, MCHC 31.1 L, RDW 17.9 H, RDW Differential 54.6 H, Plt Count 390, MPV 8.7, Immature Gran % (Auto) 0.600, Neut % (Auto) 79.2 H, Lymph % (Auto) 8.7 L, [place] % (Auto) 7.4, Eos % (Auto) 3.3, Baso % (Auto) 0.8, Absolute Neuts (auto) 11.3 H, Absolute Lymphs (auto) 1.24, Total Counted Not Reportable 06/13/18 04:55: Sodium 147 H, Potassium 3.0 L, Chloride 117 H, Carbon Dioxide 20.0 L, Anion Gap 10, BUN 34 H, Creatinine 2.13 H, Estim Creat Clear Calc 23.23, Est GFR (MDRD) Af Amer 30 L, Est GFR (MDRD) Non-Af 25 L, BUN/Creatinine Ratio 16.0, Glucose 158 H, Calcium 8.2 L 06/13/18 05:40: POC Glucose 152 H 06/13/18 10:22: POC Glucose 159 H Current Medications Acetaminophen (Tylenol) 650 mg PO Q6H PRN PRN PRN Reason: FEVER Bisacodyl (Dulcolax) 10 mg RECTAL DAILY PRN PRN PRN Reason: Constipation Dextrose (D50w Syringe) 0 gm IV X1 [facility]; Protocol PRN Reason: Hypoglycemia Glucagon () 1 mg IM .X1 PRN PRN Reason: Hypoglycemia Piperacillin Sod/Tazobactam (Sod 3.375 gm/ Sodium Chloride) 50 mls @ 12.5 mls/hr IV Q8 [facility] Last Admin: 06/13/18 05:41 Dose: 12.5 mls/hr Pantoprazole Sodium 40 mg/ (Sodium Chloride) 110 mls @ 330 mls/hr IV Q12 [facility] Last Admin: 06/13/18 10:14 Dose: 330 mls/hr Insulin Human Lispro (Humalog Kwikpen (Bkc)) 0 unit SQ Q4 [facility]; Protocol Last Admin: 06/13/18 10:23 Dose: 2 u Morphine Sulfate () 2 mg IV Q3H PRN PRN PRN Reason: SEVERE PAIN (6-10/10) Last Admin: 06/12/18 21:34 Dose: 2 mg Nystatin (Mycostatin Powder) 1 applic TOPICAL BID [facility]; Protocol Last Admin: 06/13/18 10:13 Dose: Not Given Ondansetron HCl (Zofran) 4 mg IV Q8H PRN PRN PRN Reason: NAUSEA Last Admin: 06/12/18 06:01 Dose: 4 mg Sodium Chloride () 5 - 15 ml IV UD PRN PRN Reason: SALINE FLUSH Last Admin: 06/13/18 05:00 Dose: 10 ml Medical Necessity - Tobacco Use Smoking Status: Former smoker Assessment/Plan All Active Problems GI bleed (Acute) Necrotizing soft tissue infection (Acute) Ulcer of abdomen wall with fat layer exposed (Acute) Abdominal wall abscess (Acute) Ulceration, vulva (Acute) Vulvar abscess (Acute) Gastroenteritis (Acute) Anemia in chronic kidney disease (Acute) Osteomyelitis of foot, right, acute (Acute) UTI (urinary tract infection) (Acute) Sepsis (Acute) Neutrophilic leukocytosis (Acute) Cellulitis of right foot (Acute) Diabetic ulcer of right foot (Acute) MSSA (methicillin susceptible Staphylococcus aureus) (Resolved) Mycotic cystitis (Resolved) Osteomyelitis (Resolved) 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 Acute blood loss anemia due to UGI bleed * Hb today is 8 * s/p EGD which showed lesion in her GE junction * biopsies taken * on IV protonix 40mg bid * eliquis remains on hold * advanced to soft diet today per general surgery * general surgery on board * 2. Upper GI bleed * as under 1. * 3. Chronic abdominal wound infection s/p partial vulvectomy and debridement * Currently on antibiotics- IV zosyn * white cell count is stll 14.3 today. * 4. [place].lem[place]: K is 3 today. Will replace and monitor. 5. Diabetes mellitus with diabetes neuropathy: * Accu-Cheks AC at bedtime. Insulin sliding scale. * s/p left BKA o.a of diabetic foot ulcer with osteomyelitis 6. CKD stage 3: * Creatinine is 2.11 with a GFR of 31. Will monitor. 7. Chronic hypoxic respiratory failure: Titrate oxygen to maintain saturation above 92%. 8. Non anion gap metabolic acidosis * anion gap today is 10, bicarb is still 20. * likely due to CKD. WIll monitor * 9. Bipolar disorder, anxiety and depression: on Venlafaxine and seroquel DVT prophylaxis; SCDs CODE STATUS: DNR CCA Code Visit Inpatient E&M: 10423 Subs Hosp L3
--- NOTE | 2018-06-13 15:41 | NURSING ---
Called [facility] per Dr. Colunga's request to confirm when antibiotics were to be stopped. Per nurse there, patient's antibiotics were started on 06/04/2018 and were to stop on 06/10/2018.
--- NOTE | 2018-06-13 15:43 | CASEMGMT ---
Patient can return to [facility] when ready. Green sheet on chart. Amber COLEMAN MSW
[2018-06-13 16:10] LABS: Bedside Glucose 147 mg/dL (70-110)
[2018-06-13 18:36] LABS: Bedside Glucose 188 mg/dL (70-110)
[2018-06-13 19:05] LABS: Magnesium 2.1 mg/dL (1.6-2.6); Potassium 3.3 mmol/L (3.5-5.1)
[2018-06-13 21:21] LABS: Bedside Glucose 160 mg/dL (70-110)
[2018-06-14] VITALS (7 sets, daily range): BP systolic 108–113; BP diastolic 62–68; PULSE 90–99; RESP 18–20; TEMP 36.4; O2SAT 95–100
[2018-06-14 01:56] LABS: Bedside Glucose 127 mg/dL (70-110)
[2018-06-14 05:21] LABS: Bedside Glucose 132 mg/dL (70-110)
[2018-06-14] MEDS: 0.9% NaCl Peripheral Flush Adult/Peds IV (06:00)
[2018-06-14 08:19] LABS: Absolute Lymphocyte Count 1.03 X10^3/ul (0.83-4.51); Absolute Neutrophil Count 12.2 X10^3/uL (2.0-7.7); Basophil# 0.11 X10^3/uL; Basophil% 0.8 % (0-1); Eosinophil# 0.34 X10^3/uL; Eosinophils% 2.3 % (0-5); Hematocrit 27.1 % (37-47); Hemoglobin 8.4 g/dl (12.0-15.0); Lymphocyte # 1.03 X10^3/ul (4.0); Mean Corpuscular Hgb 26.3 pg (27.0-32.0); Mean Corpuscular Volume 84.7 fL (81-99); Mean Platelet Vol. 8.9 fl (6.2-12.0); Monocyte# 0.91 X10^3/uL; Monocyte% 6.2 % (0-10); Neutrophil # 12.17 X10^3/uL (2.7-7.7); Neutrophil % 83.3 % (47-70); POSITIVE COUNT NO; POSITIVE DIFFERENTIAL NO; POSITIVE MORPHOLOGY NO; Platelet Count 421 K/mm3 (150-450); RBC Distribution Width CV 18.5 % (11.6-14.6); RBC Distribution Width SD 55.8 fl (35.1-43.9); White Blood Count 14.6 K/mm3 (4.4-11.0)
[2018-06-14 08:40] LABS: Anion Gap 10 (5-15); BUN 35 mg/dL (7-18); BUN/Creat Ratio 16.4 RATIO (10-20); Calcium,Total 8.7 mg/dL (8.5-10.1); Chloride 116 mmol/L (98-107); Creatinine, Serum 2.13 mg/dL (0.55-1.02); EST Glomerular Filtration Rate 25 mL/min (>60); Est Glom Filt Rate - Afr Amer 30 mL/min (>60); Estimated Creatinine Clearance 23.23 ml/min; Glucose 143 mg/dL (74-106); Potassium 3.7 mmol/L (3.5-5.1); Sodium Level 145 mmol/L (136-145)
--- NOTE | 2018-06-14 10:06 | PCM.PN.SRG ---
Subjective: Patient's hemoglobin is stable at 8.4, patient denies any hematemesis - Physical Exam General: Alert, Oriented x3, Cooperative, No apparent distress HEENT: Atraumatic Lungs: Normal air movement Abdomen: Soft, Obese, - - Lower abdominal wound VAC in place Vital Signs Temp Pulse Resp BP Pulse Ox 97.6 F L 90 20 H 113/62 95 06/14/18 08:00 06/14/18 08:00 06/14/18 08:00 06/14/18 08:00 06/14/18 08:06 Oxygen Delivery Method Room Air Weight: 307 lb 5.19 oz Body Mass Index (BMI) 52.6 Finger Stick Blood Glucose 122 Intake and Output for Last 24 Hours 06/12/18 06/13/18 06/14/18 23:59 23:59 23:59 Intake Total 3776 / 3776 3228.3 / 3228.3 240 / 240 Output Total 850 / 850 875 / 875 150 / 150 Balance 2926 / 2926 2353.3 / 2353.3 90 / 90 Microbiology Past 72 Hours 06/13/18 07:50 Stool Lactoferrin - Final Stool 06/10/18 11:45 Blood Culture - Preliminary Blood Culture (Wb) #2 - Anticubital Right No growth in 48 hours. 06/10/18 11:38 Blood Culture - Preliminary Blood Culture (Wb) #2 - Anticubital Left No growth in 48 hours. Laboratory Tests Past 24 Hrs 06/13/18 06/14/18 06/14/18 18:40 07:00 07:00 WBC 14.6 H RBC 3.20 L Hgb 8.4 L Hct 27.1 L MCV 84.7 MCH 26.3 L MCHC 31.0 L RDW 18.5 H RDW Differential 55.8 H Plt Count 421 MPV 8.9 Immature Gran % (Auto) 0.400 Neut % (Auto) 83.3 H Lymph % (Auto) 7.0 L [place] % (Auto) 6.2 Eos % (Auto) 2.3 Baso % (Auto) 0.8 Absolute Neuts (auto) 12.2 H Absolute Lymphs (auto) 1.03 Total Counted Not Reportable Sodium 145 Potassium 3.3 L 3.7 Chloride 116 H Carbon Dioxide 19.0 L Anion Gap 10 BUN 35 H Creatinine 2.13 H Estim Creat Clear Calc 23.23 Est GFR (MDRD) Af Amer 30 L Est GFR (MDRD) Non-Af 25 L BUN/Creatinine Ratio 16.4 Glucose 143 H Calcium 8.7 Magnesium 2.1 POC Glucose 06/14/18 06/14/18 06/13/18 05:12 01:44 21:02 POC Glucose 132 H 127 H 160 H 06/13/18 06/13/18 06/13/18 18:11 15:51 10:22 POC Glucose 188 H 147 H 159 H Medical Necessity - Tobacco Use Smoking Status: Former smoker Assessment/Plan All Active Problems GI bleed (Acute) Necrotizing soft tissue infection (Acute) Ulcer of abdomen wall with fat layer exposed (Acute) Abdominal wall abscess (Acute) Ulceration, vulva (Acute) Vulvar abscess (Acute) Gastroenteritis (Acute) Anemia in chronic kidney disease (Acute) Osteomyelitis of foot, right, acute (Acute) UTI (urinary tract infection) (Acute) Sepsis (Acute) Neutrophilic leukocytosis (Acute) Cellulitis of right foot (Acute) Diabetic ulcer of right foot (Acute) MSSA (methicillin susceptible Staphylococcus aureus) (Resolved) Mycotic cystitis (Resolved) Osteomyelitis (Resolved) 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 Patient's hemoglobin is stable at 8.4 recommend continuing off anticoagulation. Patient's biopsy only showed acute and chronic inflammation patient follow-up with Dr. Cueva as an outpatient. Devi Juarez M.D. Pager: [phone] [facility] [address] [place] [address], [facility], [address] [place] [address] Office: [phone] Code Visit Inpatient E&M: 16467 Subs Hosp L1
[2018-06-14] MEDS: Venlafaxine XR 75 MG Capsule 225 MG PO (10:13)
[2018-06-14] MEDS: Paroxetine 20 MG Tablet 40 MG PO (10:14)
[2018-06-14] MEDS: QUEtiapine 100 MG Tablet 200 MG PO (10:15)
[2018-06-14] MEDS: Acetaminophen 325 MG Tablet 650 MG PO (10:25)
[2018-06-14 10:46] LABS: Bedside Glucose 166 mg/dL (70-110)
--- NOTE | 2018-06-14 11:06 | PCM.TXEXTCAR ---
- Diet 06/12/18 11:24 Diet: Clear Liquid Is pt able to select menu?: No Diet Comments: advance to soft diet. Advance to: Regular - Routine Orders/Code Status Enema Type: Fleetz Enema Frequency: Daily PRN Suppository Type: Dulcolax 10mg Suppository Frequency: Daily PRN O2 Frequency: PRN Keep PO Greater than or Equal to (%): 90 Code Status: DNRCC-A - Wound(s) Lower mid abdomen Wound Type: Abscess Right lower abdomen Wound Type: scattered open areas from picking Dressing Change: Adaptic left lower abdomen Wound Type: open surgical wound s/p I&D Dressing Change: KCI wound VAC - Therapies Weight Bearing: Weight bearing as tolerated Physical Therapy: Eval and Treat Occupational Therapy: Eval and Treat - Allergies/Procedures Done in Hospital Allergies/Adverse Reactions: Allergies adhesive Allergy (Verified 06/10/18 10:52) Rash cefadroxil hydrate [From Duricef] Allergy (Verified 06/10/18 10:52) Rash cephalexin monohydrate [From Keflex] Allergy (Verified 06/10/18 10:52) Rash venom-honey bee [bee venom (honey bee)] Allergy (Verified 06/10/18 10:52) Rash Procedures: EGD - Type of Care/Length of Stay Estimated LOS: More Than 30 Days Type of Care Needed: Skilled Rehab Potential: Fair Prognosis: Fair - Additional Orders/Day of Discharge Additional Orders: Eliquis discontinued o/a of UGI bleed Day of Discharge: 06/14/18 - Dietary and Speech Recommendations Dietitian Recommendations/Changes: Recommend advance to cardiac/1800 calorie controlled diet as medically indicated. Will monitor wt trends and make recommendations as appropriate d/t wt gain x 1 wk and poor appetite? - Follow Up Care Primary Care Physician: Leroy Marie MD [Primary Care Provider] - Please follow up with your Primary Care Physician in: one week Please Follow Up With: Alfonzo Cueva MD When: one week
--- NOTE | 2018-06-14 11:09 | PCM.DC.SUM ---
Discharge Date and Diagnosis Date of Admission: 06/10/18 Date of Discharge: 06/14/18 - Primary Discharge Diagnosis Active and Suspected Problems Upper GI bleed (Acute) acute blood loss anemia - Secondary Discharge Diagnosis Chronic Problems Intertrigo (Chronic) abdominal wall skin crease intertrigo Panniculitis (Chronic) Abdominal panniculus (Chronic) Iron deficiency anemia (Chronic) Chronic respiratory failure with hypoxia (Chronic) Type 2 diabetes mellitus with diabetic polyneuropathy (Chronic) History of tobacco abuse (Chronic) HLD (hyperlipidemia) (Chronic) HTN (hypertension) (Chronic) Morbid obesity (Chronic) bmi 46 Noncompliance (Chronic) with diabetic therapy Personality disorder (Chronic) History of self-harm (Chronic) scratching and picking Self neglect (Chronic) Type 2 diabetes mellitus (Chronic) Bipolar disorder (Chronic) Anxiety (Chronic) 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 Electronically Signed: Abdirizak Courtney, at 11:54 EDT , Service support , Consultations 06/10/18 16:45 Consult: Onc/Wound/director of officiating Routine Comment: General surgery- Dr Cueva Operations: None Procedures: EGD Summary of Care Provided: The patient is a 62 year old F with an extensive past medical history as listed. She had been recently admitted from [address] [place] [address] for nonhealing wound infection of the abdominal wall with abscess of mons pubis and vulva status post abdominal wound debridement and partial vulvectomy. She was admitted from her residential with a complaint of coffee-ground emesis multiple times as well as diarrhea. She could not tell the color of her stool. Her hemoglobin was noted to be low in the residential and states was around 7.7 so she was transfused 1 unit of blood and had blood transfusions done there as well. She was admitted and managed for upper GI bleed. General surgery was consulted. She was continued on IV Zosyn which was to be stopped on the 10 of June for the abdominal abscess. She was also managed for acute blood loss anemia. She had been on Eliquis and Eliquis was held during this admission. She had EGD on 06/12/2018 which showed a friable soft tissue lesion at the gastroesophageal junction which was biopsied. Biopsy only showed acute and chronic inflammation characteristic of gastroesophageal disease but showed no intestinal metaplasia. She remained stable. Eliquis was discontinued completely and she said that she had been on it for a clot but it turned out she never had a clot and so she was not even sure why she had still been on. She was also put on p.o. Protonix. She is to follow-up with her primary care doctor and general surgeon in 1 week. She also had wound VAC placed over the wound by the wound care nurses follow-up with her. Hb at discharge was 8.4 Patient seen and examined prior to discharge. She had no complaints and felt well. Review of systems otherwise negative. Upper GI bleed and repair. Labs and vitals reviewed. Home medication reviewed and reconciled. o/e: Vital Signs Height 5 ft 3 in Weight: 307 lb 5.19 oz Weight in Pounds 307.3 lbs Pulse Ox 95 Temperature 97.6 F Pulse Rate 99 Respiratory Rate 20 Blood Pressure 113/62 Blood Pressure Position Semi-Fowlers [] General: Alert, Oriented x3, Cooperative, HEENT: Atraumatic, PERRLA, EOMI, Normocephalic, NG tube is out. Oral: Dry Mucosa Neck: Supple, No JVD, Negative Carotid Bruits Lungs: Clear to auscultation, Normal air movement, No rhonchi, No wheeze, No rales Cardiovascular: Regular rate, Regular Rhythm, Normal S1, Normal S2, No murmurs Abdomen: Bowel Sounds Present, Soft, Non-Distended, - - wound vac over abdominal wound Extremities: No clubbing, No cyanosis, No edema, - - left BKA. Skin: - - clean dressing over lower abdominal wall and suprapubic area. Musculoskeletal: No Tenderness to Palpation of Joints or Extremities Lymphatic: No Cervical, Supraclavicular, or Inguinal Adenopathy Neurological: Cranial nerves II-XII grossly intact Psych/Mental Status: Agitated, Alert and oriented to time, place, person, mood and affect Plan as above. - Physical Exam Vital Signs Temp Pulse Resp BP Pulse Ox 97.6 F L 99 20 H 113/62 95 03/16/19 08:00 06/14/18 10:42 06/14/18 08:00 06/14/18 08:00 06/14/18 08:06 Oxygen Delivery Method Room Air Weight: 307 lb 5.19 oz Body Mass Index (BMI) 52.6 Finger Stick Blood Glucose 122 Intake and Output for Last 24 Hours 06/12/18 06/13/18 06/14/18 23:59 23:59 23:59 Intake Total 3776 / 3776 3228.3 / 3228.3 240 / 240 Output Total 850 / 850 875 / 875 150 / 150 Balance 2926 / 2926 2353.3 / 2353.3 90 / 90 Microbiology Past 72 Hours 06/13/18 07:50 Stool Lactoferrin - Final Stool 06/10/18 11:45 Blood Culture - Preliminary Blood Culture (Wb) #2 - Anticubital Right No growth in 48 hours. 06/10/18 11:38 Blood Culture - Preliminary Blood Culture (Wb) #2 - Anticubital Left No growth in 48 hours. Laboratory Tests Past 24 Hrs 06/13/18 06/14/18 06/14/18 18:40 07:00 07:00 WBC 14.6 H RBC 3.20 L Hgb 8.4 L Hct 27.1 L MCV 84.7 MCH 26.3 L MCHC 31.0 L RDW 18.5 H RDW Differential 55.8 H Plt Count 421 MPV 8.9 Immature Gran % (Auto) 0.400 Neut % (Auto) 83.3 H Lymph % (Auto) 7.0 L [place] % (Auto) 6.2 Eos % (Auto) 2.3 Baso % (Auto) 0.8 Absolute Neuts (auto) 12.2 H Absolute Lymphs (auto) 1.03 Total Counted Not Reportable Sodium 145 Potassium 3.3 L 3.7 Chloride 116 H Carbon Dioxide 19.0 L Anion Gap 10 BUN 35 H Creatinine 2.13 H Estim Creat Clear Calc 23.23 Est GFR (MDRD) Af Amer 30 L Est GFR (MDRD) Non-Af 25 L BUN/Creatinine Ratio 16.4 Glucose 143 H Calcium 8.7 Magnesium 2.1 POC Glucose 06/14/18 06/14/18 06/14/18 10:28 05:12 01:44 POC Glucose 166 H 132 H 127 H 03/15/19 03/15/19 03/15/19 21:02 18:11 15:51 POC Glucose 160 H 188 H 147 H Home Medications: Medications to take at Discharge Ascorbic Acid [Vitamin C] 500 mg PO BID 05/28/18 Calcium Carbonate [Tums] 500 mg PO TIDCM 05/28/18 Calcium Carbonate/Vitamin D3 [Calcium 600-Vit D3 200 Tablet] 1 each PO BID 05/28/18 Cholecalciferol (VIT D3) [Vitamin D3] 2,000 unit PO DAILY 05/28/18 Cilostazol [Pletal] 50 mg PO BIDAC 05/28/18 Ferrous Sulfate 325 mg PO BID 05/28/18 Hydroxyzine Pamoate [Vistaril] 50 mg PO QHS 05/28/18 Insulin Glargine,Hum.rec.anlog [Basaglar Kwikpen U-100] 30 unit SQ BID 05/28/18 Lactobacillus Acidophilus [Acidophilus] 1 each PO DAILY 05/28/18 Loperamide HCl [Imodium A-D] 4 mg PO PRN PRN 05/28/18 Meclizine HCl 25 mg PO PRN PRN 05/28/18 Multivitamin [Multivitamins] 1 each PO DAILY 05/28/18 Paroxetine HCl [Paxil] 40 mg PO DAILY 05/28/18 Pravastatin Sodium 10 mg PO DAILY 05/28/18 Pyridoxine HCl [Vitamin B6] 100 mg PO DAILY 05/28/18 Quetiapine Fumarate [Seroquel] 200 mg PO DAILY 05/28/18 Venlafaxine HCl [Venlafaxine HCl ER] 225 mg PO DAILY 05/28/18 hydrOXYzine pamoate capsule [Vistaril pamoate capsule] 25 mg PO DAILY 05/28/18 Bisacodyl [Dulcolax] 10 mg RECTAL DAILY PRN PRN suppos. 06/04/18 Acetaminophen 1,000 mg PO Q8H PRN PRN 06/10/18 Acetaminophen 650 mg PO Q6H PRN PRN 06/10/18 Argin/Glut/Cahmb/Collag/Mv-Min [Yunier Packet] 1 each PO BID 06/10/18 Guaifenesin Dm [Robitussin Dm] 10 ml PO Q6H PRN PRN 06/10/18 Magnesium Hydroxide [Milk Of Magnesia] 30 ml PO DAILY PRN PRN 06/10/18 Nystatin Powder [Mycostatin Powder] 1 applic TOPICAL BID 06/10/18 Ondansetron [Zofran Odt] 4 mg PO Q6H PRN PRN 06/10/18 Sodium Phosphate,[place]-Dibasic [Enema Ready To Use] 133 ml RC PRN PRN 06/10/18 Pantoprazole Sodium [Protonix] 40 mg PO DAILY #30 tab 06/14/18 Following Prescrptions Were Given to Patient: Pantoprazole Sodium [Protonix] 40 mg PO DAILY #30 tab Primary Care Physician: Leroy Marie MD [Primary Care Provider] - Please follow up with your Primary Care Physician in: one week Please Follow Up With: Alfonzo Cueva MD When: one week Disposition: Senior Care facility Minutes spent on discharge:: 45 Patient Condition:: Stable Medical Necessity - Tobacco Use Smoking Status: Former smoker Meaningful Use Info Meaningful Use Diagnoses (Choose all that apply): None applicable Code Visit Inpatient E&M: 71785 Disch Hosp
--- NOTE | 2018-06-14 11:38 | NURSING ---
Report called to Viv JIMENES at [facility] to be discharged today.
--- NOTE | 2018-06-14 11:50 | PCA ---
Faxed discharge paperwork to [facility]. Set up transportation with [facility]. Attempted to reach her sister Dianne several times, phone keep saying no voicemail set up and there was no answer. Notified Lucy, listed as person to notify and she stated she would text the sister and let her know of discharge plans.
--- NOTE | 2018-06-14 13:22 | NURSING ---
student nurse charting reviewed
== END 2018-06-14 13:21 | disposition skilled nursing facility (03) | DRG 378 ==
LOC: ED 10:13 → PCU 13:34
PROVIDERS: Surgery; Admitting Provider Internal Medicine; Emergency Provider Emergency Medicine; Family Provider Family Medicine; PCP Family Medicine; Referring Provider Internal Medicine; Visit Provider Student in an Organized Health Care Education/Training Program
PROC: 0DJ08ZZ Inspection of Upper Intestinal Tract, Via Natural or Artificial Opening Endoscopic (ICD-10-PCS; CPT 43235; principal; 2018-06-12 09:55)
DX: K92.2 Gastrointestinal hemorrhage, unspecified (principal); D62 Acute posthemorrhagic anemia; J96.11 Chronic respiratory failure with hypoxia; Z68.43 Body mass index [BMI] 50.0-59.9, adult; Z66 Do not resuscitate; E66.01 Morbid (severe) obesity due to excess calories; E11.42 Type 2 diabetes mellitus with diabetic polyneuropathy; I12.9 Hypertensive chronic kidney disease with stage 1 through stage 4 chronic kidney disease, or unspecified chronic kidney disease; E11.22 Type 2 diabetes mellitus with diabetic chronic kidney disease; N18.3 Chronic kidney disease, stage 3 (moderate); E78.5 Hyperlipidemia, unspecified; Z91.5 Personal history of self-harm; Z89.512 Acquired absence of left leg below knee; Z79.01 Long term (current) use of anticoagulants; Z87.891 Personal history of nicotine dependence
CPT/HCPCS: 36415; 74018; 80048; 80076; 81001; 82271; 82962; 83605; 83630; 83690; 83735; 84132; 85014; 85018; 85025; 85610; 87040; 87506; 88305; 88312; 88313; 93005; 97802; 99285; J1756; J7030; J7040; A4216; J2405

== ENCOUNTER 2018-07-21 10:37 | Outpatient (RCR) | payer MEDICARE, MEDICAID, SELFPAY ==
[2018-06-10 14:52] VITALS: BMI 52.6
--- NOTE | 2018-07-21 13:27 | WC ---
patient arrived at the wound center via private transport from [facility]. Pt arrived in a wheelchair, and complained of intense back and hip pain. Pt's wounds were unable to be assessed due to the inability to transfer patient into a bed from the wheelchair, and patient stated she was unable to transfer without a blake lift. Pt stated her pain was too much to remain at the wound center and asked her transport to take her back to the nursing facility. Pt and staff member advised to have patient arrive via cart for the next assessment.
== END 2018-07-29 23:59 ==
LOC: WC 10:37
PROVIDERS: Family Provider Family Medicine; PCP Family Medicine; Visit Provider Surgery
DX: Z09 Encounter for follow-up examination after completed treatment for conditions other than malignant neoplasm (principal)

== ENCOUNTER 2018-07-25 11:32 | Emergency (ER) | payer MEDICARE, MEDICAID, SELFPAY ==
[2018-06-10 14:52] VITALS: BMI 52.6
[2018-07-25 11:35] VITALS: BP 116/83; PULSE 96; RESP 16; TEMP 36.9; O2SAT 99; BMI 47.0
[2018-07-25 12:38] LABS: Absolute Lymphocyte Count 1.48 X10^3/ul (0.83-4.51); Absolute Neutrophil Count 8.5 X10^3/uL (2.0-7.7); Basophil# 0.04 X10^3/uL; Basophil% 0.4 % (0-1); Eosinophils% 2.6 % (0-5); Hematocrit 30.7 % (37-47); Hemoglobin 9.7 g/dl (12.0-15.0); Lymphocyte # 1.48 X10^3/ul (4.0); Mean Corp Hgb Conc 31.6 g/gl (32-36); Mean Corpuscular Hgb 26.1 pg (27.0-32.0); Mean Corpuscular Volume 82.7 fL (81-99); Monocyte# 1.03 X10^3/uL; Neutrophil # 8.54 X10^3/uL (2.7-7.7); Neutrophil % 74.9 % (47-70); POSITIVE COUNT NO; POSITIVE DIFFERENTIAL NO; POSITIVE MORPHOLOGY NO; Platelet Count 351 K/mm3 (150-450); RBC Distribution Width CV 16.8 % (11.6-14.6); RBC Distribution Width SD 51.2 fl (35.1-43.9); Red Blood Count 3.71 M/mm3 (4.2-5.4); White Blood Count 11.4 K/mm3 (4.4-11.0)
[2018-07-25 12:48] LABS: Anion Gap 5 (5-15); BUN 39 mg/dL (7-18); BUN/Creat Ratio 19.8 RATIO (10-20); Calcium,Total 9.3 mg/dL (8.5-10.1); Chloride 107 mmol/L (98-107); Creatinine, Serum 1.97 mg/dL (0.55-1.02); EST Glomerular Filtration Rate 27 mL/min (>60); Est Glom Filt Rate - Afr Amer 33 mL/min (>60); Estimated Creatinine Clearance 29.53 ml/min; Glucose 120 mg/dL (74-106); Potassium 4.2 mmol/L (3.5-5.1); Sodium Level 140 mmol/L (136-145)
[2018-07-25 13:47] VITALS: BP 109/69; PULSE 99; RESP 16; O2SAT 100
[2018-07-25 14:12] LABS: Mucous, Urine 0 SEEN /hpf (<or=2+); Squamous Epithelial Cells - UA 0 SEEN /hpf (5-10)
[2018-07-25 14:15] LABS: Color, Urine Yellow (Yellow); Glucose, Dipstick Normal (Normal); Ketone-Dipstick Negative (Negative); Leukocyte Esterase-Dipstick 500 /ul (Negative); Nitrite-Dipstick Positive (Negative); Occult Blood-Urine 50 /ul (Negative); Protein-Dipstick 100 mg/dl (Negative); Urine Bilirubin Dipstick Negative (Negative); Urine Clarity Sl. Cloudy (Clear); Urine Urobilinogen Normal (Normal); Urine pH 6.5 (5.0 - 8.0)
[2018-07-25 14:29] LABS: Bacteria 4+ /hpf (None Seen); Red Blood Cells-Urine 10-25 SEEN /hpf (0-5); White Blood Cells >100 SEEN /hpf (0-5)
[2018-07-25 14:30] LABS: Amorphous Sediment 1+
[2018-07-25 15:17] VITALS: BP 116/69; PULSE 100; RESP 16; O2SAT 99
--- NOTE | 2018-07-25 15:54 | ED.DCSUM_ITS ---
- ER Visit Summary Date of Service: 07/25/18 Chief Complaint: Low blood pressure History of Present Illness: The patient is a 62 F sent in from [place]. Patient claims of vertigo but states has been improving recently. She is a chronic lower abdominal wound and was recently seen at the wound center with patient does not remember what was said. Per nurse practitioner at the [facility] blood pressure was low this morning so she was sent to the ED. Apparently diastolic readings were in the 40s. Physical Examination: Blood pressure is 116/83, temperature 98.5, heart rate 96, respiratory rate 16, pulse ox 99% on 2 L nasal cannula. Patient is lying in bed no acute distress. Heart is regular rate and rhythm. Lung sounds are clear. Abdomen is soft with mild lower abdominal tenderness. There is a 25 x 10 cm lower abdominal wound with packing in place. Wound edges are clean with no sign of acute infection. She has multiple scabbed lesions to the abdominal wall as well without sign of acute infection. Test Results: CBC was a white count 11.4 with normal differential. Hemoglobin is 9.7 which is improved when compared to her recent hospitalization. Chemistry studies reveal BUN of 39 and creatinine 1.97. This is improved from her baseline. Urinalysis is positive for nitrites, grade 100 white cells, 4+ bacteria. Patient does have a chronic indwelling Shay catheter. Blood and urine cultures were sent. Emergency Department Course and Treatment: Patient has remained stable while here in the emergency room. Systolic blood pressures are in the 1 teens and 120s. Diastolic readings are in the 70s and 80s. I spoke with the patient's primary care physician. He advised that she can be sent back to the [facility]. We will await urine culture before treating her urine as this is likely chronic contamination from her indwelling catheter. Treatment Plan: [] Disposition: Discharge Impression: Hypotension, improved This note was generated with [employer] dictation software. It may contain incorrect words, spelling, and punctuation that were not noted in review of the chart prior to signing ED Disposition - Plan for ED Patient: Disposition: Home or Assisted Living Instructions: ED Hypotension All Causes Referrals: Leroy Marie MD [Primary Care Provider] - 3-5 Days
--- NOTE | 2018-07-25 16:11 | ED.RN ---
called report to Lucy sahu at [facility] to inform of pt's return and that urine culture was sent.
[2018-07-25 16:40] VITALS: BP 103/73
== END 2018-07-25 16:43 | disposition home or self-care (01) ==
PROVIDERS: Emergency Provider Emergency Medicine; Family Provider Family Medicine; PCP Family Medicine
DX: I95.9 Hypotension, unspecified (principal); I13.10 Hypertensive heart and chronic kidney disease without heart failure, with stage 1 through stage 4 chronic kidney disease, or unspecified chronic kidney disease; E11.22 Type 2 diabetes mellitus with diabetic chronic kidney disease; N18.9 Chronic kidney disease, unspecified; S31.109A Unspecified open wound of abdominal wall, unspecified quadrant without penetration into peritoneal cavity, initial encounter; X58.XXXA Exposure to other specified factors, initial encounter; Y93.9 Activity, unspecified; Y92.9 Unspecified place or not applicable; Y99.9 Unspecified external cause status; F31.9 Bipolar disorder, unspecified; E66.9 Obesity, unspecified; Z79.4 Long term (current) use of insulin; Z79.899 Other long term (current) drug therapy; Z87.39 Personal history of other diseases of the musculoskeletal system and connective tissue; Z87.891 Personal history of nicotine dependence
CPT/HCPCS: 36415; 80048; 81001; 85025; 87040; 87077; 87086; 87088; 87186; 99285; A4216

== ENCOUNTER → 2018-07-29 | Outpatient (CLI) | payer MEDICARE, MEDICAID, SELFPAY ==
[2018-06-10 14:52] VITALS: BMI 52.6
[2018-07-25 11:35] VITALS: BMI 47.0
[2018-07-29 13:36] VITALS: BP 100/64; PULSE 102; RESP 16; TEMP 36.2; O2SAT 97; BMI 42.3
== END | disposition home or self-care (01) ==
PROVIDERS: Family Provider Family Medicine; PCP Family Medicine; Referring Provider Nurse Practitioner Adult Health; Visit Provider Nurse Practitioner Adult Health
DX: D50.9 Iron deficiency anemia, unspecified (principal); N18.3 Chronic kidney disease, stage 3 (moderate)
CPT/HCPCS: 96365; J1756; J7050; A4216

== ENCOUNTER → 2018-08-01 13:09 | Outpatient (CLI) | payer MEDICARE, MEDICAID, SELFPAY ==
[2018-06-10 14:52] VITALS: BMI 52.6
[2018-07-30 01:56] VITALS: BMI 52.6
[2018-08-01 13:41] VITALS: BP 99/64; PULSE 86; RESP 16; TEMP 36.2; O2SAT 99; BMI 46.5
== END ==
PROVIDERS: Family Provider Family Medicine; PCP Family Medicine; Referring Provider Nurse Practitioner Adult Health; Visit Provider Nurse Practitioner Adult Health
DX: D50.9 Iron deficiency anemia, unspecified (principal); N18.3 Chronic kidney disease, stage 3 (moderate)
CPT/HCPCS: 96365; J1756; J7050; A4216

== ENCOUNTER → 2018-08-05 13:06 | Outpatient (CLI) | payer MEDICARE, MEDICAID, SELFPAY ==
[2018-06-10 14:52] VITALS: BMI 52.6
[2018-08-01 13:41] VITALS: BMI 46.5
[2018-08-05 13:26] VITALS: BP 129/73; PULSE 87; RESP 16; TEMP 36.2; O2SAT 100; BMI 46.5
== END ==
PROVIDERS: Family Provider Family Medicine; PCP Family Medicine; Referring Provider Nurse Practitioner Adult Health; Visit Provider Nurse Practitioner Adult Health
DX: N18.3 Chronic kidney disease, stage 3 (moderate) (principal); D50.9 Iron deficiency anemia, unspecified
CPT/HCPCS: 96365; J1756; J7050; A4216

== ENCOUNTER → 2018-08-08 13:23 | Outpatient (CLI) | payer MEDICARE, MEDICAID, SELFPAY ==
[2018-06-10 14:52] VITALS: BMI 52.6
[2018-08-05 13:26] VITALS: BMI 46.5
[2018-08-08 13:45] VITALS: BP 91/56; PULSE 86; RESP 18; TEMP 35.9; O2SAT 92; BMI 46.5
== END ==
PROVIDERS: Family Provider Family Medicine; PCP Family Medicine; Referring Provider Nurse Practitioner Adult Health; Visit Provider Nurse Practitioner Adult Health
DX: D50.9 Iron deficiency anemia, unspecified (principal); N18.3 Chronic kidney disease, stage 3 (moderate)
CPT/HCPCS: 96365; J1756; J7050; A4216

== ENCOUNTER 2018-08-11 09:47 | Outpatient (RCR) | payer MEDICARE, MEDICAID, SELFPAY ==
[2018-07-30 01:56] VITALS: BMI 52.6
[2018-08-08 13:45] VITALS: BMI 46.5
[2018-08-11 09:58] VITALS: BP 124/79; PULSE 91; RESP 18; TEMP 36.3; BMI 46.5
--- NOTE | 2018-08-11 12:50 | PN.PCM_ITS ---
Type of Wound Date of Service: 08/11/18 Chief Complaint: Nonhealing ulcer abdominal wall and vulval area. History of Wound: Surgery 06/03/18 - 1. Surgical preparation lower anterior abdominal wall with incision and drainage and excisional debridement nonhealing abscess ulcer and skin and subcutaneous tissue for necrotizing soft tissue infection (450 cm2). 2. Surgical preparation vulva (mons pubis, left genitocrural area up to labia) with partial vulvectomy including deep subcutaneous tissue. Wound care - VAC. Operative culture - Proteus mirabilis, MRSA, and Bacteroides fragilis. She was treated with Unasyn and Zosyn and Doxycycline and has finished them. Prealbumin from 06/03/18 was 18.2. Encourage nutritional supplementation with protein to help the healing process. Progress of Wound: Improved. - Physical Exam Vital Signs Temp Pulse Resp BP 97.3 F L 91 18 124/79 H 08/11/18 09:58 08/11/18 09:58 08/11/18 09:58 08/11/18 09:58 Wound Measurements and Assessment WC - Nurse 1 - General Ulcer Measurement Start: 08/11/18 09:57 Freq: Status: Active Protocol: Activity Type Activity Date Activity User E-Sign Co-Sign Detail Recorded Client Recorded Date Recorded By Document 08/11/18 09:58 AN [id number] 08/11/18 10:22 AN 08/11/18 09:58 Wound Center Nurse 1 [Ulcer Assessment] #3 R Abd Cluster -Current Size (cm) - Length 25.7 -Current Size (cm) - Width 11 -Current Size (cm) - Depth 0.1 -Total Square Cm 282.7 -Photo Taken Yes -Exudate Amt Small -Exudate Type Serosanguineous -Wound Margin Indistinct, Non -Visible -Granulation Amt Large (67-100%) -Granulation Quality [place] -Necrosis Amt Medium (34-66%) -Necrotic Tissue Type Adherent Slough -Structure Exposed N/A -Texture (Elsa-wound Skin Appearance) Scarring -Moisture (Elsa-wound Skin Appearance No Abnormality ) -Color (Elsa-wound Skin Appearance) Erythema Rubor -Temperature (Elsa-wound Skin No Abnormality Appearance) (Pt Warm) -Tenderness on Palpation (Elsa-wound No Skin Appearance) -Ulcer Cleansing Wound Cleanser -Foul Odor after Cleansing No -Anesthetic Used 4% Lidocaine Solution #2 Lower Abd -Current Size (cm) - Length 6 -Current Size (cm) - Width 26 -Current Size (cm) - Depth 3.2 -Total Square Cm 156 -Photo Taken Yes -Exudate Amt Medium -Exudate Type Serosanguineous -Wound Margin Distinct, Outline Attached -Granulation Amt Large (67-100%) -Granulation Quality Red -Necrosis Amt Small (1-33%) -Necrotic Tissue Type Adherent Slough -Structure Exposed N/A -Texture (Elsa-wound Skin Appearance) Excoriation Scarring -Moisture (Elsa-wound Skin Appearance No Abnormality ) -Color (Elsa-wound Skin Appearance) Rubor -Temperature (Elsa-wound Skin No Abnormality Appearance) (Pt Warm) -Tenderness on Palpation (Elsa-wound No Skin Appearance) -Ulcer Cleansing Wound Cleanser -Foul Odor after Cleansing No -Anesthetic Used 4% Lidocaine Solution WC - Nurse 2 - General Ulcer CM Notes Start: 08/11/18 09:57 Freq: Status: Active Protocol: Activity Type Activity Date Activity User E-Sign Co-Sign Detail Recorded Client Recorded Date Recorded By Document 08/11/18 10:59 [id number] 08/11/18 11:05 08/11/18 10:59 Wound Center Nurse 2 [Procedure/Treatment] #3 R Abd Cluster -Time 10:59 -Correct Patient No -Correct Side, Site, Position No -Correct Procedure No -Procedure Performed No -Wound/Ulcer Outcome Not Healed #2 Lower Abd -Time 10:59 -Correct Patient Yes -Correct Side, Site, Position Yes -Correct Procedure Yes -Procedure Performed Yes -Type of Procedure Debridement -Clinical Debridement Subcutaneous -Post Debridement Size (cm) - Length 6 -Post Debridement Size (cm) - Width 26.1 -Post Debridement Size (cm) - Depth 3.3 -Total Square Cm 156.6 -Wound/Ulcer Outcome Not Healed -Ulcer Cleansing Rinsed/ Irrigated with Saline -Foul Odor after Cleansing No -Bioengineered Tissue No -Bleeding Controlled with Pressure -Offloading No -Treatment Response Procedure Tolerated Well [See Physician Procedure note for Specifics] Pain Scale: 0-10 Numeric [Pain] -Is Patient Pain Free? Yes Debridement Note Post-Debridement Measurements/Treatment WC - Nurse 2 - General Ulcer CM Notes Start: 08/11/18 09:57 Freq: Status: Active Protocol: Activity Type Activity Date Activity User E-Sign Co-Sign Detail Recorded Client Recorded Date Recorded By Document 08/11/18 10:59 [email or web address] [id number] 08/11/18 11:05 [email or web address] 08/11/18 10:59 Wound Center Nurse 2 #3 R Abd Cluster -Time 10:59 -Correct Patient No -Correct Side, Site, Position No -Correct Procedure No -Procedure Performed No -Wound/Ulcer Outcome Not Healed #2 Lower Abd -Time 10:59 -Correct Patient Yes -Correct Side, Site, Position Yes -Correct Procedure Yes -Procedure Performed Yes -Type of Procedure Debridement -Clinical Debridement Subcutaneous -Post Debridement Size (cm) - Length 6 -Post Debridement Size (cm) - Width 26.1 -Post Debridement Size (cm) - Depth 3.3 -Total Square Cm 156.6 -Wound/Ulcer Outcome Not Healed -Ulcer Cleansing Rinsed/ Irrigated with Saline -Foul Odor after Cleansing No -Bioengineered Tissue No -Bleeding Controlled with Pressure -Offloading No -Treatment Response Procedure Tolerated Well Pain Scale: 0-10 Numeric Is Patient Pain Free? Yes Wound debrided: #2 Lower abdominal wall and vulval area. Laterality: Not Applicable Wound Grade/Stage: 3. Type of Debridement: Excisional debridement Anesthesia Used: 4% Lidocaine Solution Depth: Down to and including healthy tissue, in the subcutaneous layer Percentage of wound debrided: 100 Instrument Used: 7mm curette Tissue Removed: subcutaneous tissue. Severity: Fat Layer Exposed Amount of bleeding with debridement: Mild Bleeding Controlled with: Pressure Patient tolerated procedure well Assessment/Plan Assessment: 1. Nonhealing ulcer abdominal wall and vulval area. 2. Diabetes mellitus. 3. History of MRSA. Plan: Continue the VAC to be changed three times per week at 150 mmHg continuous suction. Ulcer shows good granulation and healing without evidence of infection at this time. Prealbumin from 06/03/18 was 18.2. Encourage nutritional supplementation with protein to help the healing process. If there is a plateau in the healing process, can proceed with delayed closure with skin grafting. Her last HgbA1c from 05/29/18 was 6.0. It needs to be less than 8 before proceeding with skin grafting. Followup 4 weeks.
== END 2018-08-29 23:59 ==
LOC: WC 09:47
PROVIDERS: Family Provider Family Medicine; PCP Family Medicine; Visit Provider Surgery
DX: E11.622 Type 2 diabetes mellitus with other skin ulcer (principal); Z86.14 Personal history of Methicillin resistant Staphylococcus aureus infection; L98.492 Non-pressure chronic ulcer of skin of other sites with fat layer exposed
CPT/HCPCS: 11042; 11045; 99213; G0463

== ENCOUNTER → 2018-08-12 12:45 | Outpatient (CLI) | payer MEDICARE, MEDICAID, SELFPAY ==
[2018-06-10 14:52] VITALS: BMI 52.6
[2018-08-11 09:58] VITALS: BMI 46.5
[2018-08-12 13:09] VITALS: BP 91/53; PULSE 85; RESP 16; TEMP 36.4; O2SAT 98; BMI 42.3
== END ==
PROVIDERS: Family Provider Family Medicine; PCP Family Medicine; Referring Provider Nurse Practitioner Adult Health; Visit Provider Nurse Practitioner Adult Health
DX: D50.9 Iron deficiency anemia, unspecified (principal); N18.3 Chronic kidney disease, stage 3 (moderate)
CPT/HCPCS: 96365; J1756; J7050; A4216

== ENCOUNTER 2018-09-15 08:25 | Outpatient (RCR) | payer MEDICARE, MEDICAID, SELFPAY ==
[2018-08-30 01:11] VITALS: BP 124/79; PULSE 91; RESP 18; TEMP 36.3; BMI 46.5
[2018-09-15 10:07] VITALS: BP 88/56; PULSE 88; RESP 18; TEMP 36.1; BMI 46.5
--- NOTE | 2018-09-15 13:06 | PCM.WC.PN ---
(1) Ulcer of abdomen wall with fat layer exposed Status: Chronic Code(s): L98.492 - Non-pressure chronic ulcer of skin of other sites with fat layer exposed (2) Panniculitis Status: Chronic Code(s): M79.3 - Panniculitis, unspecified (3) Personal history of Methicillin resistant Staphylococcus aureus infection Status: Chronic Code(s): Z86.14 - Personal history of Methicillin resistant Staphylococcus aureus infection (4) Necrotizing soft tissue infection Status: Chronic Code(s): M79.89 - Other specified soft tissue disorders (5) Personality disorder Status: Chronic Code(s): F60.9 - Personality disorder, unspecified (6) Type 2 diabetes mellitus Status: Chronic Code(s): E11.9 - Type 2 diabetes mellitus without complications Type of Wound Date of Service: 09/15/18 Chief Complaint: Nonhealing ulcer abdominal wall and vulval area. History of Wound: Surgery 06/03/18 - 1. Surgical preparation lower anterior abdominal wall with incision and drainage and excisional debridement nonhealing abscess ulcer and skin and subcutaneous tissue for necrotizing soft tissue infection (450 cm2). 2. Surgical preparation vulva (mons pubis, left genitocrural area up to labia) with partial vulvectomy including deep subcutaneous tissue. Wound care -discontinue the VAC. Start using Fibracol plus dressing daily. Operative culture - Proteus mirabilis, MRSA, and Bacteroides fragilis. She was treated with Unasyn and Zosyn and Doxycycline and has finished them. Prealbumin from 06/03/18 was 18.2. Encourage nutritional supplementation with protein to help the healing process. Progress of Wound: Improved. - Physical Exam Vital Signs Temp Pulse Resp BP 97.0 F L 88 18 88/56 L 09/15/18 10:07 09/15/18 10:07 09/15/18 10:07 09/15/18 10:07 General: Alert, Cooperative HEENT: Atraumatic Oral: Moist Mucosa Lungs: Normal air movement Cardiovascular: Regular rate Abdomen: Obese Extremities: Capillary Refill Less than 3 Seconds Skin: Ulcer/ Wound - Left abdominal ulcer, - - Patient does have issues with picking especially at her wound. Wound Measurements and Assessment WC - Nurse 1 - General Ulcer Measurement Start: 09/15/18 10:06 Freq: Status: Active Protocol: Activity Type Activity Date Activity User E-Sign Co-Sign Detail Recorded Client Recorded Date Recorded By Document 09/15/18 10:07 [email or web address] [id number] 09/15/18 10:13 09/15/18 10:07 Wound Center Nurse 1 [Ulcer Assessment] #6 Lower Abd -Combined with other wound No -Current Size (cm) - Length 5.5 -Current Size (cm) - Width 21.0 -Current Size (cm) - Depth 0.2 -Total Square Cm 115.50 -Photo Taken Yes -Epithelialization Small 1-33% -Tunneling No -Undermining/Tunneling No -Circular Undermining No -Exudate Amt Medium -Exudate Type Serosanguineous -Wound Margin Flat & Intact -Granulation Amt Large (67-100%) -Granulation Quality Red -Slough/Fibrin Yes -Necrosis Amt Small (1-33%) -Necrotic Tissue Type Adherent Slough -Structure Exposed N/A -Texture (Elsa-wound Skin Appearance) Assessed -Moisture (Elsa-wound Skin Appearance Assessed ) Dry/Scaly -Color (Elsa-wound Skin Appearance) Assessed -Temperature (Elsa-wound Skin No Abnormality Appearance) (Pt Warm) -Tenderness on Palpation (Elsa-wound No Skin Appearance) -Ulcer Cleansing Wound Cleanser -Foul Odor after Cleansing No -Anesthetic Used 4% Lidocaine Solution [Edema Assessment] -Lower Limb Edema Present NA - Nurse 2 - General Ulcer CM Notes Start: 09/15/18 10:06 Freq: Status: Active Protocol: Activity Type Activity Date Activity User E-Sign Co-Sign Detail Recorded Client Recorded Date Recorded By Document 09/15/18 10:45 [id number] 09/15/18 10:47 09/15/18 10:45 Wound Center Nurse 2 [Procedure/Treatment] #6 Lower Abd -Time 10:45 -Correct Patient Yes -Correct Side, Site, Position Yes -Correct Procedure Yes -Procedure Performed Yes -Type of Procedure Debridement -Clinical Debridement Subcutaneous -Post Debridement Size (cm) - Length 5.0 -Post Debridement Size (cm) - Width 21.0 -Post Debridement Size (cm) - Depth 0.2 -Total Square Cm 105.00 -Wound/Ulcer Outcome Not Healed -Ulcer Cleansing Rinsed/ Irrigated with Saline -Foul Odor after Cleansing No -Bioengineered Tissue No -Bleeding Controlled with Pressure -Offloading No -Treatment Response Procedure Tolerated Well [See Physician Procedure note for Specifics] Pain Scale: 0-10 Numeric [Pain] -Is Patient Pain Free? Yes Musculoskeletal: No Tenderness to Palpation of Joints or Extremities Neurological: Neuro grossly intact Psych/Mental Status: Normal Affect, Appropriate Debridement Note Post-Debridement Measurements/Treatment WC - Nurse 2 - General Ulcer CM Notes Start: 09/15/18 10:06 Freq: Status: Active Protocol: Activity Type Activity Date Activity User E-Sign Co-Sign Detail Recorded Client Recorded Date Recorded By Document 09/15/18 10:45 ESTEBAN [id number] 09/15/18 10:47 ESTEBAN 09/15/18 10:45 Wound Center Nurse 2 #6 Lower Abd -Time 10:45 -Correct Patient Yes -Correct Side, Site, Position Yes -Correct Procedure Yes -Procedure Performed Yes -Type of Procedure Debridement -Clinical Debridement Subcutaneous -Post Debridement Size (cm) - Length 5.0 -Post Debridement Size (cm) - Width 21.0 -Post Debridement Size (cm) - Depth 0.2 -Total Square Cm 105.00 -Wound/Ulcer Outcome Not Healed -Ulcer Cleansing Rinsed/ Irrigated with Saline -Foul Odor after Cleansing No -Bioengineered Tissue No -Bleeding Controlled with Pressure -Offloading No -Treatment Response Procedure Tolerated Well Pain Scale: 0-10 Numeric Is Patient Pain Free? Yes Wound debrided: Left abdominal ulcer Type of Debridement: Excisional debridement Anesthesia Used: 4% Lidocaine Solution Depth: Down to and including healthy tissue, in the subcutaneous layer Instrument Used: 7mm curette Tissue Removed: Subcutaneous tissue and slough Severity: Fat Layer Exposed Amount of bleeding with debridement: Mild Bleeding Controlled with: Pressure Patient tolerated procedure well Assessment/Plan Assessment: 1. Nonhealing ulcer abdominal wall and vulval area. 2. Diabetes mellitus. 3. History of MRSA. Plan: Will discontinue the VAC per patient request. Will start daily Fibracol plus dressing changes. Ulcer shows good granulation and healing without evidence of infection at this time. Prealbumin from 06/03/18 was 18.2. Encourage nutritional supplementation with protein to help the healing process. If there is a plateau in the healing process, can proceed with delayed closure with skin grafting. Her last HgbA1c from 05/29/18 was 6.0. It needs to be less than 8 before proceeding with skin grafting. Followup 4 weeks. Code Visit 111xxx-113xx: 70817 Susy subq tissue 20 sq cm/< Add On Codes: 99682 Susy subq tissue add-on - x5
== END 2018-09-28 23:59 ==
LOC: WC 08:25
PROVIDERS: Family Provider Family Medicine; PCP Family Medicine; Visit Provider Surgery
DX: E11.622 Type 2 diabetes mellitus with other skin ulcer (principal); L98.492 Non-pressure chronic ulcer of skin of other sites with fat layer exposed; Z86.14 Personal history of Methicillin resistant Staphylococcus aureus infection; M79.3 Panniculitis, unspecified
CPT/HCPCS: 11042; 11045

== ENCOUNTER 2018-10-21 15:08 | Outpatient (RCR) | payer MEDICARE, MEDICAID, SELFPAY ==
[2018-09-29 00:49] VITALS: BP 88/56; PULSE 88; RESP 18; TEMP 36.1; BMI 42.3
[2018-10-21 15:32] VITALS: BP 138/79; PULSE 97; RESP 18; TEMP 36.1; BMI 42.3
--- NOTE | 2018-10-21 17:55 | PN.PCM_ITS ---
(1) Ulcer of abdomen wall with fat layer exposed Status: Chronic Current Visit: Yes Code(s): L98.492 - Non-pressure chronic ulcer of skin of other sites with fat layer exposed (2) Skin ulcer of abdominal wall with fat layer exposed Status: Chronic Current Visit: Yes Code(s): L98.492 - Non-pressure chronic ulcer of skin of other sites with fat layer exposed (3) Intertrigo Status: Chronic Current Visit: Yes Code(s): L30.4 - Erythema intertrigo Comment: abdominal wall skin crease intertrigo (4) Panniculitis Status: Chronic Current Visit: Yes Code(s): M79.3 - Panniculitis, unsp ecified (5) Abdominal panniculus Status: Chronic Current Visit: Yes Code(s): E65 - Localized adiposity (6) Type 2 diabetes mellitus with diabetic polyneuropathy Status: Chronic Current Visit: Yes Code(s): E11.42 - Type 2 diabetes mellitus with diabetic polyneuropathy (7) Noncompliance Status: Chronic Current Visit: Yes Code(s): Z91.19 - Patient's noncompliance with other medical treatment and regimen Comment: with diabetic therapy (8) History of self-harm Status: Chronic Current Visit: Yes Code(s): Z91.5 - Personal history of self-harm Comment: scratching and picking (9) Personal history of Methicillin resistant Staphylococcus aureus infection Status: Chronic Current Visit: Yes Code(s): Z86.14 - Personal history of Methicillin resistant Staphylococcus aureus infection (10) History of tobacco abuse Status: Chronic Current Visit: Yes Code(s): Z87.891 - Personal history of nicotine dependence Type of Wound Date of Service: 10/21/18 Chief Complaint: Nonhealing ulcer abdominal wall and vulval area. History of Wound: Surgery 06/03/18 - 1. Surgical preparation lower anterior abdominal wall with incision and drainage and excisional debridement nonhealing abscess ulcer and skin and subcutaneous tissue for necrotizing soft tissue infection (450 cm2). 2. Surgical preparation vulva (mons pubis, left genitocrural area up to labia) with partial vulvectomy including deep subcutaneous tissue. Wound care -discontinue the VAC. Start using silver dressing daily to both the left lower abdomen and the new cluster on right abdomen. Operative culture - Proteus mirabilis, MRSA, and Bacteroides fragilis. She was treated with Unasyn and Zosyn and Doxycycline and has finished them. Prealbumin from 06/03/18 was 18.2. Encourage nutritional supplementation with protein to help the healing process. Progress of Wound: Left lower abdominal ulcer is improved. Due to the patient picking, she has multiple clusters of opened ulcers on right abdomen. - Physical Exam Vital Signs Temp Pulse Resp BP 96.9 F L 97 18 138/79 H 10/21/18 15:32 10/21/18 15:32 10/21/18 15:32 10/21/18 15:32 General: Alert, Cooperative HEENT: Atraumatic Oral: Moist Mucosa Lungs: Normal air movement Cardiovascular: Regular rate Abdomen: Obese Extremities: No edema Skin: Ulcer/ Wound - Left lower abdomen and right abdomen cluster from picking Wound Measurements and Assessment WC - Nurse 1 - General Ulcer Measurement Start: 10/21/18 15:32 Freq: Status: Active Protocol: Activity Type Activity Date Activity User E-Sign Co-Sign Detail Recorded Client Recorded Date Recorded By Document 10/21/18 15:32 DV [id number] 10/21/18 16:13 DV 10/21/18 15:32 Wound Center Nurse 1 [Ulcer Assessment] #9 LOWER RIGHT ABDOMEN CLUSTER -Combined with other wound No -Current Size (cm) - Length 16.0 -Current Size (cm) - Width 18.0 -Current Size (cm) - Depth 0.2 -Total Square Cm 288.00 -Date of Last Picture (Recall this 10/21/18 field) -Photo Taken Yes -Epithelialization None Present -Tunneling No -Undermining/Tunneling No -Circular Undermining No -Classification - Thickness Full Thickness without Exposed Support Structure -Exudate Amt Medium -Exudate Type Serosanguineous -Wound Margin Flat & Intact -Granulation Amt None Present (0 %) -Granulation Quality N/A -Slough/Fibrin Yes -Necrosis Amt Large (67-100%) -Necrotic Tissue Type Eschar -Structure Exposed None/Limited to Skin Breakdown -Texture (Elsa-wound Skin Appearance) Assessed, Scarring,Rash -Moisture (Elsa-wound Skin Appearance Assessed, ) Weeping -Color (Elsa-wound Skin Appearance) Assessed, Erythema -Temperature (Elsa-wound Skin No Abnormality Appearance) (Pt Warm) -Tenderness on Palpation (Elsa-wound No Skin Appearance) -Foul Odor after Cleansing No -Anesthetic Used 4% Lidocaine Solution #8 MID PANNIS -Combined with other wound No -Current Size (cm) - Length 21.0 -Current Size (cm) - Width 6.0 -Current Size (cm) - Depth 0.1 -Total Square Cm 126.00 -Date of Last Picture (Recall this 10/21/18 field) -Photo Taken Yes -Epithelialization Medium 34-66% -Tunneling No -Undermining/Tunneling No -Circular Undermining No -Classification - Thickness Full Thickness without Exposed Support Structure -Exudate Amt Large -Exudate Type Yellow/Green -Wound Margin Flat & Intact -Granulation Amt Medium (34-66%) -Granulation Quality Red -Slough/Fibrin Yes -Necrosis Amt Large (67-100%) -Necrotic Tissue Type Adherent Slough -Structure Exposed None/Limited to Skin Breakdown -Texture (Elsa-wound Skin Appearance) Assessed, Scarring,Rash -Moisture (Elsa-wound Skin Appearance Assessed, ) Weeping -Color (Elsa-wound Skin Appearance) Assessed, Erythema -Temperature (Elsa-wound Skin No Abnormality Appearance) (Pt Warm) -Tenderness on Palpation (Elsa-wound No Skin Appearance) -Foul Odor after Cleansing Yes -Anesthetic Used 4% Lidocaine Solution WC - Nurse 2 - General Ulcer CM Notes Start: 10/21/18 15:32 Freq: Status: Active Protocol: Activity Type Activity Date Activity User E-Sign Co-Sign Detail Recorded Client Recorded Date Recorded By Document 10/21/18 16:37 MW [id number] 10/21/18 16:48 MW 10/21/18 16:37 Wound Center Nurse 2 [Procedure/Treatment] #9 LOWER RIGHT ABDOMEN CLUSTER -Time 16:38 -Correct Patient Yes -Correct Side, Site, Position Yes -Correct Procedure Yes -Procedure Performed Yes -Type of Procedure Debridement -Clinical Debridement Subcutaneous -Post Debridement Size (cm) - Length 18.0 -Post Debridement Size (cm) - Width 26.0 -Post Debridement Size (cm) - Depth 0.2 -Total Square Cm 468.00 -Wound/Ulcer Outcome Not Healed -Ulcer Cleansing Rinsed/ Irrigated with Saline -Foul Odor after Cleansing No -Bioengineered Tissue No -Bleeding Controlled with Pressure -Offloading No -Treatment Response Procedure Tolerated Well #8 MID PANNIS -Time 16:38 -Correct Patient Yes -Correct Side, Site, Position Yes -Correct Procedure Yes -Procedure Performed Yes -Type of Procedure Debridement -Clinical Debridement Subcutaneous -Post Debridement Size (cm) - Length 3.8 -Post Debridement Size (cm) - Width 20.0 -Post Debridement Size (cm) - Depth 0.3 -Total Square Cm 76.00 -Wound/Ulcer Outcome Not Healed -Ulcer Cleansing Rinsed/ Irrigated with Saline -Foul Odor after Cleansing No -Bioengineered Tissue No -Bleeding Controlled with Pressure -Offloading No [See Physician Procedure note for Specifics] Pain Scale: 0-10 Numeric [Pain] -Is Patient Pain Free? Yes Musculoskeletal: No Tenderness to Palpation of Joints or Extremities Neurological: Neuro grossly intact Psych/Mental Status: Normal Affect, Appropriate Debridement Note Post-Debridement Measurements/Treatment WC - Nurse 2 - General Ulcer CM Notes Start: 10/21/18 15:32 Freq: Status: Active Protocol: Activity Type Activity Date Activity User E-Sign Co-Sign Detail Recorded Client Recorded Date Recorded By Document 10/21/18 16:37 MW [id number] 10/21/18 16:48 MW 10/21/18 16:37 Wound Center Nurse 2 #9 LOWER RIGHT ABDOMEN CLUSTER -Time 16:38 -Correct Patient Yes -Correct Side, Site, Position Yes -Correct Procedure Yes -Procedure Performed Yes -Type of Procedure Debridement -Clinical Debridement Subcutaneous -Post Debridement Size (cm) - Length 18.0 -Post Debridement Size (cm) - Width 26.0 -Post Debridement Size (cm) - Depth 0.2 -Total Square Cm 468.00 -Wound/Ulcer Outcome Not Healed -Ulcer Cleansing Rinsed/ Irrigated with Saline -Foul Odor after Cleansing No -Bioengineered Tissue No -Bleeding Controlled with Pressure -Offloading No -Treatment Response Procedure Tolerated Well #8 MID PANNIS -Time 16:38 -Correct Patient Yes -Correct Side, Site, Position Yes -Correct Procedure Yes -Procedure Performed Yes -Type of Procedure Debridement -Clinical Debridement Subcutaneous -Post Debridement Size (cm) - Length 3.8 -Post Debridement Size (cm) - Width 20.0 -Post Debridement Size (cm) - Depth 0.3 -Total Square Cm 76.00 -Wound/Ulcer Outcome Not Healed -Ulcer Cleansing Rinsed/ Irrigated with Saline -Foul Odor after Cleansing No -Bioengineered Tissue No -Bleeding Controlled with Pressure -Offloading No Pain Scale: 0-10 Numeric Is Patient Pain Free? Yes Wound debrided: left lower abdomen Laterality: Left Type of Debridement: Excisional debridement Anesthesia Used: 4% Lidocaine Solution Depth: Down to and including healthy tissue, in the subcutaneous layer Percentage of wound debrided: 100 Instrument Used: 7mm curette Tissue Removed: Subcutaneous tissue and slough Severity: Fat Layer Exposed Amount of bleeding with debridement: Mild Bleeding Controlled with: Compression and gauze Patient tolerated procedure well - Additional Wound Wound debrided: Right abdomen cluster Laterality: Right Type of Debridement: Excisional debridement Anesthesia Used: 5% Lidocaine Gel Depth: Down to and including healthy tissue, in the subcutaneous layer Percentage of wound debrided: 100 Instrument Used: 5mm curette Tissue Removed: Subcutaneous tissue and slough Severity: Fat Layer Exposed Amount of bleeding with debridement: Mild Bleeding Controlled with: Compression and gauze Patient tolerated procedure: Patient tolerated procedure well Assessment/Plan Active Problems (Last Reviewed 07/04/18 @ 13:28 by Angelica Basurto) Skin ulcer of abdominal wall with fat layer exposed (Chronic) Personal history of Methicillin resistant Staphylococcus aureus infection (Chronic) Intertrigo (Chronic) abdominal wall skin crease intertrigo Panniculitis (Chronic) Abdominal panniculus (Chronic) Ulcer of abdomen wall with fat layer exposed (Chronic) Abdominal wall abscess (Acute) Type 2 diabetes mellitus with diabetic polyneuropathy (Chronic) History of tobacco abuse (Chronic) Noncompliance (Chronic) with diabetic therapy History of self-harm (Chronic) scratching and picking Assessment: 1. Nonhealing ulcer abdominal wall and vulval area. 2. Right abdominal ulcer cluster. 3. Diabetes mellitus. 4. History of MRSA. Plan: Will start silver to opened ulcers daily. Instructed the area needs to be washed with soap and water daily before the dressing changes. She is starting to have increased edema in the right abdomen from it being dependent. Encouraged frequent repositioning every 2 hours. Prealbumin from 06/03/18 was 18.2. Encourage nutritional supplementation with protein to help the healing process. If there is a plateau in the healing process, can proceed with delayed closure with skin grafting. Her last HgbA1c from 05/29/18 was 6.0. It needs to be less than 8 before proceeding with skin grafting. Followup 4 weeks. Code Visit 111xxx-113xx: 78598 Susy subq tissue 20 sq cm/< Add On Codes: 57284 Susy subq tissue add-on - x27
== END 2018-10-29 23:59 ==
LOC: WC 15:08
PROVIDERS: Family Provider Family Medicine; PCP Family Medicine; Visit Provider Surgery
DX: E11.622 Type 2 diabetes mellitus with other skin ulcer (principal); L98.492 Non-pressure chronic ulcer of skin of other sites with fat layer exposed; M79.3 Panniculitis, unspecified; Z86.14 Personal history of Methicillin resistant Staphylococcus aureus infection; E11.42 Type 2 diabetes mellitus with diabetic polyneuropathy; Z91.19 Patient's noncompliance with other medical treatment and regimen; Z91.5 Personal history of self-harm; Z87.891 Personal history of nicotine dependence
CPT/HCPCS: 11042; 11045; 87070; 87075; 87077; 87186; 87205

== ENCOUNTER 2018-11-25 14:00 | Outpatient (RCR) | payer MEDICARE, MEDICAID, SELFPAY ==
[2018-10-30 00:48] VITALS: BP 138/79; PULSE 97; RESP 18; TEMP 36.1
[2018-11-11 14:28] VITALS: BP 120/74; PULSE 83; RESP 18; TEMP 35.7; BMI 42.3
--- NOTE | 2018-11-11 17:09 | PCM.WC.PN ---
(1) Skin ulcer of abdominal wall with fat layer exposed Status: Chronic Code(s): L98.492 - Non-pressure chronic ulcer of skin of other sites with fat layer exposed (2) Ulcer of abdomen wall with fat layer exposed Status: Chronic Code(s): L98.492 - Non-pressure chronic ulcer of skin of other sites with fat layer exposed (3) Personal history of Methicillin resistant Staphylococcus aureus infection Status: Chronic Code(s): Z86.14 - Personal history of Methicillin resistant Staphylococcus aureus infection (4) Abdominal panniculus Status: Chronic Code(s): E65 - Localized adiposity (5) History of self-harm Status: Chronic Code(s): Z91.5 - Personal history of self-harm Comment: scratching and picking (6) Type 2 diabetes mellitus Status: Chronic Code(s): E11.9 - Type 2 diabetes mellitus without complications Type of Wound Date of Service: 11/11/18 Chief Complaint: Nonhealing ulcer abdominal wall and vulval area. History of Wound: Surgery 06/03/18 - 1. Surgical preparation lower anterior abdominal wall with incision and drainage and excisional debridement nonhealing abscess ulcer and skin and subcutaneous tissue for necrotizing soft tissue infection (450 cm2). 2. Surgical preparation vulva (mons pubis, left genitocrural area up to labia) with partial vulvectomy including deep subcutaneous tissue. Wound care -discontinue the VAC. Start using silver dressing daily to both the left lower abdomen and the new cluster on right abdomen. Operative culture - Proteus mirabilis, MRSA, and Bacteroides fragilis. She was treated with Unasyn and Zosyn and Doxycycline and has finished them. Prealbumin from 06/03/18 was 18.2. Encourage nutritional supplementation with protein to help the healing process. Progress of Wound: Left lower abdominal ulcer is improved. Due to the patient picking, she has multiple clusters of opened ulcers on right abdomen. - Physical Exam Vital Signs Temp Pulse Resp BP 96.2 F L 83 18 120/74 11/11/18 14:28 11/11/18 14:28 11/11/18 14:28 11/11/18 14:28 General: Alert, Oriented x3, Cooperative HEENT: Atraumatic Oral: Moist Mucosa Lungs: Normal air movement Cardiovascular: Regular rate Abdomen: Soft, Obese Extremities: Capillary Refill Less than 3 Seconds, Edema Skin: Ulcer/ Wound - Midabdominal ulcer improved, right abdominal ulcers improving Wound Measurements and Assessment WC - Nurse 1 - General Ulcer Measurement Start: 11/11/18 14:26 Freq: Status: Active Protocol: Activity Type Activity Date Activity User E-Sign Co-Sign Detail Recorded Client Recorded Date Recorded By Document 11/11/18 14:28 DV [id number] 11/11/18 14:33 DV 11/11/18 14:28 Wound Center Nurse 1 [Ulcer Assessment] #9 LOWER RIGHT ABDOMEN CLUSTER -Combined with other wound No -Current Size (cm) - Length 11.0 -Current Size (cm) - Width 20.0 -Current Size (cm) - Depth 0.1 -Total Square Cm 220.00 -Photo Taken Yes -Epithelialization None Present -Tunneling No -Undermining/Tunneling No -Circular Undermining No -Classification - Thickness Full Thickness without Exposed Support Structure -Exudate Amt Small -Exudate Type Serous -Wound Margin Flat & Intact -Granulation Amt Large (67-100%) -Granulation Quality N/A,Pale,[place] -Slough/Fibrin Yes -Necrosis Amt Small (1-33%) -Necrotic Tissue Type Adherent Slough -Structure Exposed None/Limited to Skin Breakdown -Texture (Elsa-wound Skin Appearance) Assessed, Scarring -Moisture (Elsa-wound Skin Appearance Assessed, ) Weeping -Color (Elsa-wound Skin Appearance) Assessed, Erythema -Temperature (Elsa-wound Skin No Abnormality Appearance) (Pt Warm) -Tenderness on Palpation (Elsa-wound No Skin Appearance) -Foul Odor after Cleansing No -Anesthetic Used 4% Lidocaine Solution #8 MID PANNIS -Combined with other wound No -Current Size (cm) - Length 3.4 -Current Size (cm) - Width 8.2 -Current Size (cm) - Depth 0.1 -Total Square Cm 27.88 -Date of Last Picture (Recall this 11/11/18 field) -Photo Taken Yes -Epithelialization Small 1-33% -Tunneling No -Undermining/Tunneling No -Circular Undermining No -Exudate Amt Large -Exudate Type Serosanguineous -Wound Margin Flat & Intact -Granulation Amt Medium (34-66%) -Granulation Quality Pale,Red -Slough/Fibrin Yes -Necrosis Amt Large (67-100%) -Necrotic Tissue Type Adherent Slough -Structure Exposed None/Limited to Skin Breakdown -Texture (Elsa-wound Skin Appearance) Assessed, Scarring -Moisture (Elsa-wound Skin Appearance Assessed, ) Weeping -Color (Elsa-wound Skin Appearance) Assessed, Erythema -Temperature (Elsa-wound Skin No Abnormality Appearance) (Pt Warm) -Tenderness on Palpation (Elsa-wound No Skin Appearance) -Foul Odor after Cleansing No -Anesthetic Used 4% Lidocaine Solution WC - Nurse 2 - General Ulcer CM Notes Start: 11/11/18 14:26 Freq: Status: Active Protocol: Activity Type Activity Date Activity User E-Sign Co-Sign Detail Recorded Client Recorded Date Recorded By Document 11/11/18 14:48 ESTEBAN [id number] 11/11/18 14:50 ESTEBAN 11/11/18 14:48 Wound Center Nurse 2 [Procedure/Treatment] #9 LOWER RIGHT ABDOMEN CLUSTER -Time 14:49 -Correct Patient Yes -Correct Side, Site, Position Yes -Correct Procedure Yes -Procedure Performed Yes -Type of Procedure Debridement -Clinical Debridement Subcutaneous -Post Debridement Size (cm) - Length 17 -Post Debridement Size (cm) - Width 18.7 -Post Debridement Size (cm) - Depth 0.1 -Total Square Cm 317.9 -Wound/Ulcer Outcome Not Healed -Ulcer Cleansing Rinsed/ Irrigated with Saline -Foul Odor after Cleansing No -Bioengineered Tissue No -Bleeding Controlled with Pressure -Offloading No -Treatment Response Procedure Tolerated Well #8 MID PANNIS -Time 14:49 -Correct Patient Yes -Correct Side, Site, Position Yes -Correct Procedure Yes -Procedure Performed Yes -Type of Procedure Debridement -Clinical Debridement Subcutaneous -Post Debridement Size (cm) - Length 3.0 -Post Debridement Size (cm) - Width 7.4 -Post Debridement Size (cm) - Depth 0.2 -Total Square Cm 22.20 -Wound/Ulcer Outcome Not Healed -Ulcer Cleansing Rinsed/ Irrigated with Saline -Foul Odor after Cleansing No -Bioengineered Tissue No -Bleeding Controlled with Pressure -Offloading No -Treatment Response Procedure Tolerated Well [See Physician Procedure note for Specifics] Pain Scale: 0-10 Numeric [Pain] -Is Patient Pain Free? Yes Musculoskeletal: No Tenderness to Palpation of Joints or Extremities Neurological: Neuro grossly intact Psych/Mental Status: Normal Affect Debridement Note Post-Debridement Measurements/Treatment WC - Nurse 2 - General Ulcer CM Notes Start: 11/11/18 14:26 Freq: Status: Active Protocol: Activity Type Activity Date Activity User E-Sign Co-Sign Detail Recorded Client Recorded Date Recorded By Document 11/11/18 14:48 ESTEBAN [id number] 11/11/18 14:50 ESTEBAN 11/11/18 14:48 Wound Center Nurse 2 #9 LOWER RIGHT ABDOMEN CLUSTER -Time 14:49 -Correct Patient Yes -Correct Side, Site, Position Yes -Correct Procedure Yes -Procedure Performed Yes -Type of Procedure Debridement -Clinical Debridement Subcutaneous -Post Debridement Size (cm) - Length 17 -Post Debridement Size (cm) - Width 18.7 -Post Debridement Size (cm) - Depth 0.1 -Total Square Cm 317.9 -Wound/Ulcer Outcome Not Healed -Ulcer Cleansing Rinsed/ Irrigated with Saline -Foul Odor after Cleansing No -Bioengineered Tissue No -Bleeding Controlled with Pressure -Offloading No -Treatment Response Procedure Tolerated Well #8 MID PANNIS -Time 14:49 -Correct Patient Yes -Correct Side, Site, Position Yes -Correct Procedure Yes -Procedure Performed Yes -Type of Procedure Debridement -Clinical Debridement Subcutaneous -Post Debridement Size (cm) - Length 3.0 -Post Debridement Size (cm) - Width 7.4 -Post Debridement Size (cm) - Depth 0.2 -Total Square Cm 22.20 -Wound/Ulcer Outcome Not Healed -Ulcer Cleansing Rinsed/ Irrigated with Saline -Foul Odor after Cleansing No -Bioengineered Tissue No -Bleeding Controlled with Pressure -Offloading No -Treatment Response Procedure Tolerated Well Pain Scale: 0-10 Numeric Is Patient Pain Free? Yes Wound debrided: mid abdominal ulcer Type of Debridement: Excisional debridement Anesthesia Used: 4% Lidocaine Solution, 5% Lidocaine Gel Depth: Down to and including healthy tissue, in the subcutaneous layer Percentage of wound debrided: 100 Instrument Used: 7mm curette Tissue Removed: Subcutaneous tissue and slough Severity: Fat Layer Exposed Amount of bleeding with debridement: Mild Bleeding Controlled with: Pressure, Compression and gauze Patient tolerated procedure well - Additional Wound Wound debrided: right abdomen ulcers Laterality: Right Type of Debridement: Excisional debridement Anesthesia Used: 4% Lidocaine Solution Depth: Down to and including healthy tissue, in the subcutaneous layer Percentage of wound debrided: 100 Instrument Used: 7mm curette Tissue Removed: Subcutaneous tissue and slough Severity: Fat Layer Exposed Amount of bleeding with debridement: Mild Bleeding Controlled with: Pressure, Compression and gauze Patient tolerated procedure: Patient tolerated procedure well Assessment/Plan Assessment: 1. Nonhealing ulcer abdominal wall and vulval area. 2. Right abdominal ulcer cluster. 3. Diabetes mellitus. 4. History of MRSA. Plan: Continue silver to mid abdominal ulcer. Use colloagen hydrogel to ulcers on right abdomen. Instructed the area needs to be washed with soap and water daily before the dressing changes. Prealbumin from 06/03/18 was 18.2. Encourage nutritional supplementation with protein to help the healing process. If there is a plateau in the healing process, can proceed with delayed closure with skin grafting. Her last HgbA1c from 05/29/18 was 6.0. It needs to be less than 8 before proceeding with skin grafting. Cultures from 10/21/18 grew MRSA, Proteus mirabilis, Staphylococcus, epidermidis, Corynebacterium striatum, Pseudomonas aeroginosa. She has been placed on Cipro, Doxycycline and Augmentin. Follow up in 2 weeks. Code Visit 111xxx-113xx: 18346 Susy subq tissue 20 sq cm/< Add On Codes: 30968 Susy subq tissue add-on - x15
[2018-11-25 14:32] VITALS: BP 113/76; PULSE 82; RESP 20; TEMP 36.3; BMI 42.3
--- NOTE | 2018-11-25 17:13 | PN.PCM_ITS ---
(1) Skin ulcer of abdominal wall with fat layer exposed Status: Chronic Current Visit: Yes Code(s): L98.492 - Non-pressure chronic ulcer of skin of other sites with fat layer exposed (2) Ulcer of abdomen wall with fat layer exposed Status: Chronic Current Visit: Yes Code(s): L98.492 - Non-pressure chronic ulcer of skin of other sites with fat layer exposed (3) Personal history of Methicillin resistant Staphylococcus aureus infection Status: Chronic Current Visit: Yes Code(s): Z86.14 - Personal history of Methicillin resistant Staphylococcus aureus infection (4) Abdominal panniculus Status: Chronic Current Visit: Yes Code(s): E65 - Localized adiposity (5) History of self-harm Status: Chronic Current Visit: Yes Code(s): Z91.5 - Personal history of self-harm Comment: scratching and picking (6) Type 2 diabetes mellitus Status: Chronic Current Visit: Yes Code(s): E11.9 - Type 2 diabetes mellitus without complications Type of Wound Date of Service: 11/25/18 Chief Complaint: Nonhealing ulcer abdominal wall and vulval area. History of Wound: Surgery 06/03/18 - 1. Surgical preparation lower anterior abdominal wall with incision and drainage and excisional debridement nonhealing abscess ulcer and skin and subcutaneous tissue for necrotizing soft tissue infection (450 cm2). 2. Surgical preparation vulva (mons pubis, left genitocrural area up to labia) with partial vulvectomy including deep subcutaneous tissue. Wound care -discontinue the VAC. Start using silver dressing daily to both the left lower abdomen and the new cluster on right abdomen. Operative culture - Proteus mirabilis, MRSA, and Bacteroides fragilis. She was treated with Unasyn and Zosyn and Doxycycline and has finished them. Prealbumin from 06/03/18 was 18.2. Encourage nutritional supplementation with protein to help the healing process. Progress of Wound: Left lower abdominal ulcer is improved. Due to the patient picking, she has multiple clusters of opened ulcers on right abdomen, which are improving. - Physical Exam Vital Signs Temp Pulse Resp BP 97.4 F L 82 20 H 113/76 11/25/18 14:32 11/25/18 14:32 11/25/18 14:32 11/25/18 14:32 General: Alert, Oriented x3, Cooperative HEENT: Atraumatic Oral: Moist Mucosa Lungs: Normal air movement Cardiovascular: Regular rate Abdomen: Soft, Obese Extremities: Capillary Refill Less than 3 Seconds Skin: Ulcer/ Wound - lower abdominal ulcer and right abdominal cluster Wound Measurements and Assessment WC - Nurse 1 - General Ulcer Measurement Start: 11/11/18 14:26 Freq: Status: Active Protocol: Activity Type Activity Date Activity User E-Sign Co-Sign Detail Recorded Client Recorded Date Recorded By Document 11/25/18 14:32 DL [id number] 11/25/18 14:48 DL 11/25/18 14:32 Wound Center Nurse 1 [Ulcer Assessment] #9 LOWER RIGHT ABDOMEN CLUSTER -Current Size (cm) - Length 13 -Current Size (cm) - Width 19.5 -Current Size (cm) - Depth 0.1 -Total Square Cm 253.5 -Photo Taken No -Exudate Amt None Present -Wound Margin Distinct, Outline Attached -Granulation Amt Large (67-100%) -Granulation Quality [place],Red -Necrosis Amt Small (1-33%) -Necrotic Tissue Type Adherent Slough -Structure Exposed N/A -Texture (Elsa-wound Skin Appearance) Scarring -Moisture (Elsa-wound Skin Appearance Dry/Scaly ) -Color (Elsa-wound Skin Appearance) No Abnormality -Temperature (Elsa-wound Skin No Abnormality Appearance) (Pt Warm) -Tenderness on Palpation (Elsa-wound No Skin Appearance) -Ulcer Cleansing Wound Cleanser -Foul Odor after Cleansing No -Anesthetic Used 5% Lidocaine Gel #8 MID PANNIS -Current Size (cm) - Length 3.1 -Current Size (cm) - Width 5.2 -Current Size (cm) - Depth 0.1 -Total Square Cm 16.12 -Photo Taken No -Exudate Amt Small -Exudate Type Serosanguineous -Wound Margin Distinct, Outline Attached -Granulation Amt Small (1-33%) -Granulation Quality [place] -Necrosis Amt Large (67-100%) -Necrotic Tissue Type Adherent Slough -Structure Exposed N/A -Texture (Elsa-wound Skin Appearance) Scarring -Moisture (Elsa-wound Skin Appearance Dry/Scaly ) -Color (Elsa-wound Skin Appearance) No Abnormality -Temperature (Elsa-wound Skin No Abnormality Appearance) (Pt Warm) -Tenderness on Palpation (Elsa-wound No Skin Appearance) -Ulcer Cleansing Wound Cleanser -Foul Odor after Cleansing No -Anesthetic Used 4% Lidocaine Solution WC - Nurse 2 - General Ulcer CM Notes Start: 11/11/18 14:26 Freq: Status: Active Protocol: Activity Type Activity Date Activity User E-Sign Co-Sign Detail Recorded Client Recorded Date Recorded By Document 11/25/18 15:05 [id number] 11/25/18 15:06 11/25/18 15:05 Wound Center Nurse 2 [Procedure/Treatment] #9 LOWER RIGHT ABDOMEN CLUSTER -Time 15:05 -Correct Patient Yes -Correct Side, Site, Position Yes -Correct Procedure Yes -Procedure Performed Yes -Type of Procedure Debridement -Clinical Debridement Subcutaneous -Post Debridement Size (cm) - Length 12 -Post Debridement Size (cm) - Width 20.5 -Post Debridement Size (cm) - Depth 0.1 -Total Square Cm 246.0 -Wound/Ulcer Outcome Not Healed -Ulcer Cleansing Rinsed/ Irrigated with Saline -Foul Odor after Cleansing No -Bioengineered Tissue No -Bleeding Controlled with Pressure -Offloading No -Treatment Response Procedure Tolerated Well #8 MID PANNIS -Time 15:06 -Correct Patient Yes -Correct Side, Site, Position Yes -Correct Procedure Yes -Procedure Performed Yes -Type of Procedure Debridement -Clinical Debridement Subcutaneous -Post Debridement Size (cm) - Length 3.7 -Post Debridement Size (cm) - Width 5.7 -Post Debridement Size (cm) - Depth 0.1 -Total Square Cm 21.09 -Wound/Ulcer Outcome Not Healed -Ulcer Cleansing Rinsed/ Irrigated with Saline -Foul Odor after Cleansing No -Bioengineered Tissue No -Bleeding Controlled with Pressure -Offloading No -Treatment Response Procedure Tolerated Well [See Physician Procedure note for Specifics] Pain Scale: 0-10 Numeric [Pain] -Is Patient Pain Free? Yes Musculoskeletal: No Tenderness to Palpation of Joints or Extremities Neurological: Neuro grossly intact Psych/Mental Status: Normal Affect, Appropriate Debridement Note Post-Debridement Measurements/Treatment - Nurse 2 - General Ulcer CM Notes Start: 11/11/18 14:26 Freq: Status: Active Protocol: Activity Type Activity Date Activity User E-Sign Co-Sign Detail Recorded Client Recorded Date Recorded By Document 11/11/18 14:48 [id number] 11/11/18 14:50 Document 11/25/18 15:05 [id number] 11/25/18 15:06 11/11/18 11/25/18 14:48 15:05 Wound Center Nurse 2 #9 LOWER RIGHT ABDOMEN CLUSTER -Time 14:49 15:05 -Correct Patient Yes Yes -Correct Side, Site, Position Yes Yes -Correct Procedure Yes Yes -Procedure Performed Yes Yes -Type of Procedure Debridement Debridement -Clinical Debridement Subcutaneous Subcutaneous -Post Debridement Size (cm) - Length 17 12 -Post Debridement Size (cm) - Width 18.7 20.5 -Post Debridement Size (cm) - Depth 0.1 0.1 -Total Square Cm 317.9 246.0 -Wound/Ulcer Outcome Not Healed Not Healed -Ulcer Cleansing Rinsed/ Rinsed/ Irrigated with Irrigated with Saline Saline -Foul Odor after Cleansing No No -Bioengineered Tissue No No -Bleeding Controlled with Pressure Pressure -Offloading No No -Treatment Response Procedure Procedure Tolerated Well Tolerated Well #8 MID PANNIS -Time 14:49 15:06 -Correct Patient Yes Yes -Correct Side, Site, Position Yes Yes -Correct Procedure Yes Yes -Procedure Performed Yes Yes -Type of Procedure Debridement Debridement -Clinical Debridement Subcutaneous Subcutaneous -Post Debridement Size (cm) - Length 3.0 3.7 -Post Debridement Size (cm) - Width 7.4 5.7 -Post Debridement Size (cm) - Depth 0.2 0.1 -Total Square Cm 22.20 21.09 -Wound/Ulcer Outcome Not Healed Not Healed -Ulcer Cleansing Rinsed/ Rinsed/ Irrigated with Irrigated with Saline Saline -Foul Odor after Cleansing No No -Bioengineered Tissue No No -Bleeding Controlled with Pressure Pressure -Offloading No No -Treatment Response Procedure Procedure Tolerated Well Tolerated Well Pain Scale: 0-10 Numeric Is Patient Pain Free? Yes Yes Wound debrided: Lower abdominal ulcer Type of Debridement: Excisional debridement Anesthesia Used: 4% Lidocaine Solution, 5% Lidocaine Gel Depth: Down to and including healthy tissue, in the subcutaneous layer Percentage of wound debrided: 100 Instrument Used: 7mm curette Tissue Removed: Subcutaneous tissue and slough Severity: Fat Layer Exposed Amount of bleeding with debridement: Mild Bleeding Controlled with: Pressure, Compression and gauze Patient tolerated procedure well - Additional Wound Wound debrided: Right abdominal cluster ulcers Laterality: Right Type of Debridement: Excisional debridement Anesthesia Used: 4% Lidocaine Solution, 5% Lidocaine Gel Depth: Down to and including healthy tissue, in the subcutaneous layer Percentage of wound debrided: 100 Instrument Used: 7mm curette Tissue Removed: Subcutaneous tissue and slough Severity: Fat Layer Exposed Amount of bleeding with debridement: Mild Bleeding Controlled with: Pressure, Compression and gauze Patient tolerated procedure: Patient tolerated procedure well Assessment/Plan Active Problems (Last Reviewed 07/04/18 @ 13:28 by Angelica Basurto) Skin ulcer of abdominal wall with fat layer exposed (Chronic) Personal history of Methicillin resistant Staphylococcus aureus infection (Chronic) Abdominal panniculus (Chronic) Ulcer of abdomen wall with fat layer exposed (Chronic) History of self-harm (Chronic) scratching and picking Type 2 diabetes mellitus (Chronic) Assessment: 1. Nonhealing ulcer abdominal wall and vulval area. 2. Right abdominal ulcer cluster. 3. Diabetes mellitus. 4. History of MRSA. Plan: Continue silver to mid abdominal ulcer. Use colloagen hydrogel to ulcers on right abdomen. Instructed the area needs to be washed with soap and water daily before the dressing changes. Reinforced the daily washing with soap and water and that the dressings need to be changed daily (patient states that the dressings are not getting changed daily due to nurses not having enough time.) Patient is at [facility]. Prealbumin from 06/03/18 was 18.2. Encourage nutritional supplementation with protein to help the healing process. If there is a plateau in the healing process, can proceed with delayed closure with skin grafting. Her last HgbA1c from 05/29/18 was 6.0. It needs to be less than 8 before proceeding with skin grafting. Cultures from 10/21/18 grew MRSA, Proteus mirabilis, Staphylococcus, epidermidis, Corynebacterium striatum, Pseudomonas aeroginosa. She has been placed on Cipro, Doxycycline and Augmentin. Follow up in 2 weeks. Code Visit 111xxx-113xx: 14570 Susy subq tissue 20 sq cm/< Add On Codes: 21526 Susy subq tissue add-on - x3
== END 2018-11-29 23:59 ==
LOC: WC 14:00
PROVIDERS: Family Provider Family Medicine; PCP Family Medicine; Visit Provider Surgery
DX: E11.622 Type 2 diabetes mellitus with other skin ulcer (principal); L98.492 Non-pressure chronic ulcer of skin of other sites with fat layer exposed; Z86.14 Personal history of Methicillin resistant Staphylococcus aureus infection; Z91.5 Personal history of self-harm; M79.3 Panniculitis, unspecified
CPT/HCPCS: 11042; 11045

== ENCOUNTER 2018-12-16 13:45 | Outpatient (RCR) | payer MEDICARE, MEDICAID, SELFPAY ==
[2018-11-30 00:40] VITALS: BP 113/76; PULSE 82; RESP 20; TEMP 36.3
[2018-12-16 13:53] VITALS: BP 117/73; PULSE 89; RESP 16; TEMP 36.1; BMI 42.3
--- NOTE | 2018-12-16 15:39 | PN.PCM_ITS ---
(1) Ulcer of abdomen wall with fat layer exposed Status: Chronic Code(s): L98.492 - Non-pressure chronic ulcer of skin of other sites with fat layer exposed (2) Abdominal panniculus Status: Chronic Code(s): E65 - Localized adiposity (3) Intertrigo Status: Chronic Code(s): L30.4 - Erythema intertrigo Comment: abdominal wall skin crease intertrigo (4) Noncompliance Status: Chronic Code(s): Z91.19 - Patient's noncompliance with other medical treatment and regimen Comment: with diabetic therapy (5) Personal history of Methicillin resistant Staphylococcus aureus infection Status: Chronic Code(s): Z86.14 - Personal history of Methicillin resistant Staphylococcus aureus infection (6) Type 2 diabetes mellitus Status: Chronic Code(s): E11.9 - Type 2 diabetes mellitus without complications Type of Wound Date of Service: 12/16/18 Chief Complaint: Nonhealing ulcer abdominal wall and vulval area. History of Wound: Surgery 06/03/18 - 1. Surgical preparation lower anterior abdominal wall with incision and drainage and excisional debridement nonhealing abscess ulcer and skin and subcutaneous tissue for necrotizing soft tissue infection (450 cm2). 2. Surgical preparation vulva (mons pubis, left genitocrural area up to labia) with partial vulvectomy including deep subcutaneous tissue. Wound care -Mid abdominal pannus Dakins solution daily. Right abdominal cluster will stop collagen hydrogel and place xeroform gauze over opened areas. Operative culture - Proteus mirabilis, MRSA, and Bacteroides fragilis. She was treated with Unasyn and Zosyn and Doxycycline and has finished them. Prealbumin from 06/03/18 was 18.2. Encourage nutritional supplementation with protein to help the healing process. Progress of Wound: Left lower abdominal ulcer is improved. Due to the patient picking, she has multiple clusters of opened ulcers on right abdomen, which are slowly improving. - Physical Exam Vital Signs Temp Pulse Resp BP 96.9 F L 89 16 117/73 12/16/18 13:53 12/16/18 13:53 12/16/18 13:53 12/16/18 13:53 General: Alert, Oriented x3 HEENT: Atraumatic Oral: Moist Mucosa Lungs: Normal air movement Cardiovascular: Regular rate Abdomen: Obese Extremities: Capillary Refill Less than 3 Seconds, Edema Skin: Ulcer/ Wound - Right abdominal cluster ulcers and lower mid abdominal ulcer Wound Measurements and Assessment WC - Nurse 1 - General Ulcer Measurement Start: 12/16/18 13:53 Freq: Status: Active Protocol: Activity Type Activity Date Activity User E-Sign Co-Sign Detail Recorded Client Recorded Date Recorded By Document 12/16/18 13:53 [facility] [id number] 12/16/18 14:05 [facility] 12/16/18 13:53 Wound Center Nurse 1 [Ulcer Assessment] #9 LOWER RIGHT ABDOMEN CLUSTER -Combined with other wound No -Current Size (cm) - Length 14 -Current Size (cm) - Width 17.3 -Current Size (cm) - Depth 0.2 -Total Square Cm 242.2 -Photo Taken No -Epithelialization None Present -Tunneling No -Undermining/Tunneling No -Circular Undermining No -Exudate Amt None Present -Wound Margin Distinct, Outline Attached -Granulation Amt Medium (34-66%) -Granulation Quality Pale,[place] -Slough/Fibrin Yes -Necrosis Amt Medium (34-66%) -Necrotic Tissue Type Adherent Slough -Texture (Elsa-wound Skin Appearance) Assessed, Scarring -Moisture (Elsa-wound Skin Appearance Assessed,Dry/ ) Scaly -Color (Elsa-wound Skin Appearance) Assessed -Temperature (Elsa-wound Skin No Abnormality Appearance) (Pt Warm) -Tenderness on Palpation (Elsa-wound No Skin Appearance) -Ulcer Cleansing soap and water -Foul Odor after Cleansing No -Anesthetic Used 5% Lidocaine Gel #8 MID PANNIS -Combined with other wound No -Current Size (cm) - Length 4.3 -Current Size (cm) - Width 20.3 -Current Size (cm) - Depth 0.1 -Total Square Cm 87.29 -Photo Taken No -Epithelialization None Present -Tunneling No -Undermining/Tunneling No -Circular Undermining No -Exudate Amt Small -Exudate Type Serosanguineous -Wound Margin Flat & Intact -Granulation Amt Large (67-100%) -Granulation Quality Red -Slough/Fibrin Yes -Necrosis Amt Medium (34-66%) -Necrotic Tissue Type Adherent Slough -Texture (Elsa-wound Skin Appearance) Assessed, Scarring -Moisture (Elsa-wound Skin Appearance Assessed ) -Color (Elsa-wound Skin Appearance) Assessed -Temperature (Elsa-wound Skin No Abnormality Appearance) (Pt Warm) -Tenderness on Palpation (Elsa-wound No Skin Appearance) -Ulcer Cleansing soap and water -Foul Odor after Cleansing No -Anesthetic Used 4% Lidocaine Solution MARYLIN - Nurse 2 - General Ulcer CM Notes Start: 12/16/18 13:53 Freq: Status: Active Protocol: Activity Type Activity Date Activity User E-Sign Co-Sign Detail Recorded Client Recorded Date Recorded By Document 12/16/18 14:13 ESTEBAN [id number] 12/16/18 14:19 12/16/18 14:13 Wound Center Nurse 2 [Procedure/Treatment] #9 LOWER RIGHT ABDOMEN CLUSTER -Time 14:16 -Correct Patient Yes -Correct Side, Site, Position Yes -Correct Procedure Yes -Procedure Performed Yes -Type of Procedure Debridement -Clinical Debridement Subcutaneous -Post Debridement Size (cm) - Length 19 -Post Debridement Size (cm) - Width 19 -Post Debridement Size (cm) - Depth 0.2 -Total Square Cm 361 -Wound/Ulcer Outcome Not Healed -Ulcer Cleansing Rinsed/ Irrigated with Saline -Foul Odor after Cleansing No -Bioengineered Tissue No -Bleeding Controlled with Pressure -Offloading No -Treatment Response Procedure Tolerated Well #8 MID PANNIS -Time 14:16 -Correct Patient Yes -Correct Side, Site, Position Yes -Correct Procedure Yes -Procedure Performed Yes -Type of Procedure Debridement -Clinical Debridement Subcutaneous -Post Debridement Size (cm) - Length 4 -Post Debridement Size (cm) - Width 19.7 -Post Debridement Size (cm) - Depth 0.1 -Total Square Cm 78.8 -Wound/Ulcer Outcome Not Healed -Ulcer Cleansing Rinsed/ Irrigated with Saline -Foul Odor after Cleansing No -Bioengineered Tissue No -Bleeding Controlled with Pressure -Offloading No -Treatment Response Procedure Tolerated Well [See Physician Procedure note for Specifics] Pain Scale: 0-10 Numeric [Pain] -Is Patient Pain Free? Yes Musculoskeletal: No Tenderness to Palpation of Joints or Extremities Neurological: Neuro grossly intact Psych/Mental Status: Normal Affect, Appropriate Debridement Note Post-Debridement Measurements/Treatment MARYLIN - Nurse 2 - General Ulcer CM Notes Start: 12/16/18 13:53 Freq: Status: Active Protocol: Activity Type Activity Date Activity User E-Sign Co-Sign Detail Recorded Client Recorded Date Recorded By Document 12/16/18 14:13 [id number] 12/16/18 14:19 12/16/18 14:13 Wound Center Nurse 2 #9 LOWER RIGHT ABDOMEN CLUSTER -Time 14:16 -Correct Patient Yes -Correct Side, Site, Position Yes -Correct Procedure Yes -Procedure Performed Yes -Type of Procedure Debridement -Clinical Debridement Subcutaneous -Post Debridement Size (cm) - Length 19 -Post Debridement Size (cm) - Width 19 -Post Debridement Size (cm) - Depth 0.2 -Total Square Cm 361 -Wound/Ulcer Outcome Not Healed -Ulcer Cleansing Rinsed/ Irrigated with Saline -Foul Odor after Cleansing No -Bioengineered Tissue No -Bleeding Controlled with Pressure -Offloading No -Treatment Response Procedure Tolerated Well #8 MID PANNIS -Time 14:16 -Correct Patient Yes -Correct Side, Site, Position Yes -Correct Procedure Yes -Procedure Performed Yes -Type of Procedure Debridement -Clinical Debridement Subcutaneous -Post Debridement Size (cm) - Length 4 -Post Debridement Size (cm) - Width 19.7 -Post Debridement Size (cm) - Depth 0.1 -Total Square Cm 78.8 -Wound/Ulcer Outcome Not Healed -Ulcer Cleansing Rinsed/ Irrigated with Saline -Foul Odor after Cleansing No -Bioengineered Tissue No -Bleeding Controlled with Pressure -Offloading No -Treatment Response Procedure Tolerated Well Pain Scale: 0-10 Numeric Is Patient Pain Free? Yes Wound debrided: Lower mid abdominal ulcer Type of Debridement: Excisional debridement Anesthesia Used: 4% Lidocaine Solution, 5% Lidocaine Gel Depth: Down to and including healthy tissue, in the subcutaneous layer Percentage of wound debrided: 100 Instrument Used: 7mm curette Tissue Removed: Subcutaneous tissue and slough Severity: Fat Layer Exposed Amount of bleeding with debridement: Mild Bleeding Controlled with: Pressure, Compression and gauze Patient tolerated procedure well - Additional Wound Wound debrided: Right abdominal cluster ulcers Laterality: Right Type of Debridement: Excisional debridement Anesthesia Used: 4% Lidocaine Solution, 5% Lidocaine Gel Depth: Down to and including healthy tissue, in the subcutaneous layer Percentage of wound debrided: 100 Instrument Used: 5mm curette Tissue Removed: Subcutaneous tissue and slough Severity: Limited To Skin Breakdown Amount of bleeding with debridement: Mild Bleeding Controlled with: Pressure, Compression and gauze Patient tolerated procedure: Patient tolerated procedure well Assessment/Plan Assessment: 1. Nonhealing ulcer abdominal wall and vulval area. 2. Right abdominal ulcer cluster. 3. Diabetes mellitus. 4. History of MRSA. Plan: Continue Dakins solution to lower mid abdominal ulcer. Stop colloagen hydrogel to ulcers on right abdomen and will start xeroform gauze to hopefully prevent the area from becoming so dry. Reinforced the daily washing with soap and water and that the dressings need to be changed daily. Patient is at [facility]. Prealbumin from 06/03/18 was 18.2. Encourage nutritional supplementation with protein to help the healing process. Cultures from 10/21/18 grew MRSA, Proteus mirabilis, Staphylococcus, epidermidis, Corynebacterium striatum, Pseudomonas aeroginosa. She has been placed on Cipro, Doxycycline and Augmentin. Encouraged patient to stop picking at the right abdominal ulcers. Follow up in 2 weeks. Code Visit 111xxx-113xx: 03014 Susy subq tissue 20 sq cm/< Add On Codes: [id number] Susy subq tissue add-on - x21
== END 2018-12-29 23:59 ==
LOC: WC 13:45
PROVIDERS: Family Provider Family Medicine; PCP Family Medicine; Visit Provider Surgery
DX: E11.622 Type 2 diabetes mellitus with other skin ulcer (principal); L30.4 Erythema intertrigo; E65 Localized adiposity; L98.492 Non-pressure chronic ulcer of skin of other sites with fat layer exposed; Z86.14 Personal history of Methicillin resistant Staphylococcus aureus infection; L98.491 Non-pressure chronic ulcer of skin of other sites limited to breakdown of skin
CPT/HCPCS: 11042; 11045

== ENCOUNTER 2019-01-27 13:00 | Outpatient (RCR) | payer MEDICARE, MEDICAID, SELFPAY ==
[2018-12-30 00:41] VITALS: BP 117/73; PULSE 89; RESP 16; TEMP 36.1
[2018-12-30 13:20] VITALS: BP 115/80; PULSE 92; RESP 18; TEMP 35.7; BMI 42.3
--- NOTE | 2018-12-30 14:30 | PN.PCM_ITS ---
(1) Skin ulcer of abdominal wall with fat layer exposed Status: Chronic Current Visit: Yes Code(s): L98.492 - Non-pressure chronic ulcer of skin of other sites with fat layer exposed (2) Intertrigo Status: Chronic Current Visit: Yes Code(s): L30.4 - Erythema intertrigo Comment: abdominal wall skin crease intertrigo (3) Panniculitis Status: Chronic Current Visit: Yes Code(s): M79.3 - Panniculitis, unspecified (4) Type 2 diabetes mellitus Status: Chronic Current Visit: Yes Code(s): E11.9 - Type 2 diabetes mellitus without complications (5) Personal history of Methicillin resistant Staphylococcus aureus infection Status: Chronic Current Visit: Yes Code(s): Z86.14 - Personal history of Methicillin resistant Staphylococcus aureus infection Type of Wound Date of Service: 12/30/18 Chief Complaint: Nonhealing ulcer abdominal wall and vulval area. History of Wound: Surgery 06/03/18 - 1. Surgical preparation lower anterior abdominal wall with incision and drainage and excisional debridement nonhealing abscess ulcer and skin and subcutaneous tissue for necrotizing soft tissue infection (450 cm2). 2. Surgical preparation vulva (mons pubis, left genitocrural area up to labia) with partial vulvectomy including deep subcutaneous tissue. Wound care -Mid abdominal pannus Dakins solution daily. Right abdominal cluster will stop collagen hydrogel and place xeroform gauze over opened areas. Operative culture - Proteus mirabilis, MRSA, and Bacteroides fragilis. She was treated with Unasyn and Zosyn and Doxycycline and has finished them. Prealbumin from 06/03/18 was 18.2. Encourage nutritional supplementation with protein to help the healing process. Progress of Wound: Left lower abdominal ulcer is improved. Due to the patient picking, she has multiple clusters of opened ulcers on right abdomen, which are slowly improving. - Physical Exam Vital Signs Temp Pulse Resp BP 96.2 F L 92 18 115/80 12/30/18 13:20 12/30/18 13:20 12/30/18 13:20 12/30/18 13:20 General: Alert, Oriented x3, Cooperative HEENT: Atraumatic Oral: Moist Mucosa Lungs: Normal air movement Cardiovascular: Regular rate Abdomen: Obese, Tender Extremities: Capillary Refill Less than 3 Seconds, Peripheral Pulses Normal Skin: Ulcer/ Wound - Lower abdominal/pannus ulcers and right abdominal cluster ulcers Wound Measurements and Assessment WC - Nurse 1 - General Ulcer Measurement Start: 12/30/18 13:20 Freq: Status: Active Protocol: Activity Type Activity Date Activity User E-Sign Co-Sign Detail Recorded Client Recorded Date Recorded By Document 12/30/18 13:20 [facility] [id number] 12/30/18 13:25 [facility] 12/30/18 13:20 Wound Center Nurse 1 [Ulcer Assessment] #9 LOWER RIGHT ABDOMEN CLUSTER -Combined with other wound No -Current Size (cm) - Length 7.8 -Current Size (cm) - Width 12 -Current Size (cm) - Depth 0.1 -Total Square Cm 93.6 -Photo Taken No -Epithelialization Small 1-33% -Tunneling No -Undermining/Tunneling No -Circular Undermining No -Wound Margin Flat & Intact -Granulation Amt Large (67-100%) -Granulation Quality Red -Slough/Fibrin No -Necrosis Amt None Present (0 %) -Texture (Elsa-wound Skin Appearance) Assessed, Scarring -Moisture (Elsa-wound Skin Appearance Assessed ) -Color (Elsa-wound Skin Appearance) Assessed -Temperature (Elsa-wound Skin No Abnormality Appearance) (Pt Warm) -Tenderness on Palpation (Elsa-wound Yes Skin Appearance) -Ulcer Cleansing SOAP AND WATER -Foul Odor after Cleansing No -Anesthetic Used 4% Lidocaine Solution #8 MID PANNUS -Combined with other wound No -Current Size (cm) - Length 3.9 -Current Size (cm) - Width 23 -Current Size (cm) - Depth 0.1 -Total Square Cm 89.7 -Photo Taken No -Epithelialization Small 1-33% -Tunneling No -Undermining/Tunneling No -Circular Undermining No -Exudate Amt Medium -Exudate Type Serosanguineous -Wound Margin Flat & Intact -Granulation Amt Large (67-100%) -Granulation Quality Red -Slough/Fibrin Yes -Necrosis Amt Small (1-33%) -Necrotic Tissue Type Adherent Slough -Texture (Elsa-wound Skin Appearance) Assessed, Scarring -Moisture (Elsa-wound Skin Appearance Assessed,Dry/ ) Scaly -Color (Elsa-wound Skin Appearance) Assessed -Temperature (Elsa-wound Skin No Abnormality Appearance) (Pt Warm) -Tenderness on Palpation (Elsa-wound Yes Skin Appearance) -Ulcer Cleansing SOAP AND WATER -Foul Odor after Cleansing No -Anesthetic Used 4% Lidocaine Solution WC - Nurse 2 - General Ulcer CM Notes Start: 12/30/18 13:20 Freq: Status: Active Protocol: Activity Type Activity Date Activity User E-Sign Co-Sign Detail Recorded Client Recorded Date Recorded By Document 12/30/18 13:32 ESTEBAN [id number] 12/30/18 13:39 12/30/18 13:32 Wound Center Nurse 2 [Procedure/Treatment] #9 LOWER RIGHT ABDOMEN CLUSTER -Time 13:38 -Correct Patient Yes -Correct Side, Site, Position Yes -Correct Procedure Yes -Procedure Performed Yes -Type of Procedure Debridement -Clinical Debridement Subcutaneous -Post Debridement Size (cm) - Length 14 -Post Debridement Size (cm) - Width 27.0 -Post Debridement Size (cm) - Depth 0.1 -Total Square Cm 378.0 -Wound/Ulcer Outcome Not Healed -Ulcer Cleansing Rinsed/ Irrigated with Saline -Foul Odor after Cleansing No -Bioengineered Tissue No -Bleeding Controlled with Pressure -Offloading No -Treatment Response Procedure Tolerated Well #8 MID PANNUS -Time 13:37 -Correct Patient Yes -Correct Side, Site, Position Yes -Correct Procedure Yes -Procedure Performed Yes -Type of Procedure Debridement -Clinical Debridement Subcutaneous -Post Debridement Size (cm) - Length 3.8 -Post Debridement Size (cm) - Width 20 -Post Debridement Size (cm) - Depth 0.2 -Total Square Cm 76.0 -Wound/Ulcer Outcome Not Healed -Ulcer Cleansing Rinsed/ Irrigated with Saline -Foul Odor after Cleansing No -Bioengineered Tissue No -Bleeding Controlled with Pressure -Offloading No -Treatment Response Procedure Tolerated Well [See Physician Procedure note for Specifics] Pain Scale: 0-10 Numeric [Pain] -Is Patient Pain Free? Yes Neurological: Neuro grossly intact Psych/Mental Status: Normal Affect Debridement Note Post-Debridement Measurements/Treatment MARYLIN - Nurse 2 - General Ulcer CM Notes Start: 12/30/18 13:20 Freq: Status: Active Protocol: Activity Type Activity Date Activity User E-Sign Co-Sign Detail Recorded Client Recorded Date Recorded By Document 12/30/18 13:32 [id number] 12/30/18 13:39 10/01/19 13:32 Wound Center Nurse 2 #9 LOWER RIGHT ABDOMEN CLUSTER -Time 13:38 -Correct Patient Yes -Correct Side, Site, Position Yes -Correct Procedure Yes -Procedure Performed Yes -Type of Procedure Debridement -Clinical Debridement Subcutaneous -Post Debridement Size (cm) - Length 14 -Post Debridement Size (cm) - Width 27.0 -Post Debridement Size (cm) - Depth 0.1 -Total Square Cm 378.0 -Wound/Ulcer Outcome Not Healed -Ulcer Cleansing Rinsed/ Irrigated with Saline -Foul Odor after Cleansing No -Bioengineered Tissue No -Bleeding Controlled with Pressure -Offloading No -Treatment Response Procedure Tolerated Well #8 MID PANNUS -Time 13:37 -Correct Patient Yes -Correct Side, Site, Position Yes -Correct Procedure Yes -Procedure Performed Yes -Type of Procedure Debridement -Clinical Debridement Subcutaneous -Post Debridement Size (cm) - Length 3.8 -Post Debridement Size (cm) - Width 20 -Post Debridement Size (cm) - Depth 0.2 -Total Square Cm 76.0 -Wound/Ulcer Outcome Not Healed -Ulcer Cleansing Rinsed/ Irrigated with Saline -Foul Odor after Cleansing No -Bioengineered Tissue No -Bleeding Controlled with Pressure -Offloading No -Treatment Response Procedure Tolerated Well Pain Scale: 0-10 Numeric Is Patient Pain Free? Yes Wound debrided: lower abdominal ulcer Laterality: Not Applicable Type of Debridement: Excisional debridement Anesthesia Used: 4% Lidocaine Solution, 5% Lidocaine Gel Depth: Down to and including healthy tissue, in the subcutaneous layer Percentage of wound debrided: 100 Instrument Used: 7mm curette Tissue Removed: subcutaneous tissue and slough Severity: Fat Layer Exposed Amount of bleeding with debridement: Mild Bleeding Controlled with: Pressure, Compression and gauze Patient tolerated procedure well - Additional Wound Wound debrided: right abdominal cluster ulcers Laterality: Right Type of Debridement: Excisional debridement Anesthesia Used: 4% Lidocaine Solution, 5% Lidocaine Gel Depth: Down to and including healthy tissue, in the subcutaneous layer Percentage of wound debrided: 100 Instrument Used: 3mm curette Tissue Removed: Subcutaneous tissue and slough Severity: Limited To Skin Breakdown Amount of bleeding with debridement: Mild Bleeding Controlled with: Pressure Patient tolerated procedure: Patient tolerated procedure well Assessment/Plan Active Problems (Last Reviewed 07/04/18 @ 13:28 by Angelica Basurto) Skin ulcer of abdominal wall with fat layer exposed (Chronic) Personal history of Methicillin resistant Staphylococcus aureus infection (Chronic) Intertrigo (Chronic) abdominal wall skin crease intertrigo Panniculitis (Chronic) Type 2 diabetes mellitus (Chronic) Assessment: 1. Nonhealing ulcer abdominal wall and vulval area. 2. Right abdominal ulcer cluster. 3. Diabetes mellitus. 4. History of MRSA. Plan: Continue Dakins solution to lower mid abdominal ulcer. Stop xeroform gauze and will start bactroban ointment to ulcers on right abdomen. Reinforced the daily washing with soap and water and that the dressings need to be changed daily. Patient is at [facility]. Prealbumin from 06/03/18 was 18.2. Encourage nutritional supplementation with protein to help the healing process. Cultures from 10/21/18 grew MRSA, Proteus mirabilis, Staphylococcus, epidermidis, Corynebacterium striatum, Pseudomonas aeroginosa. She is done with antibiotics. Encouraged patient to stop picking at the right abdominal ulcers. Follow up in 2 weeks. Code Visit 111xxx-113xx: 90883 Susy subq tissue 20 sq cm/< Add On Codes: [id number] Susy subq tissue add-on - x22
[2019-01-13 13:26] VITALS: BP 121/66; PULSE 94; RESP 18; TEMP 36.2; BMI 42.3
--- NOTE | 2019-01-13 17:03 | PN.PCM_ITS ---
(1) Skin ulcer of abdominal wall with fat layer exposed Status: Chronic Current Visit: Yes Code(s): L98.492 - Non-pressure chronic ulcer of skin of other sites with fat layer exposed (2) Intertrigo Status: Chronic Current Visit: Yes Code(s): L30.4 - Erythema intertrigo Comment: abdominal wall skin crease intertrigo (3) Panniculitis Status: Chronic Current Visit: Yes Code(s): M79.3 - Panniculitis, unspecified (4) Type 2 diabetes mellitus Status: Chronic Current Visit: Yes Code(s): E11.9 - Type 2 diabetes mellitus without complications (5) Personal history of Methicillin resistant Staphylococcus aureus infection Status: Chronic Current Visit: Yes Code(s): Z86.14 - Personal history of Methicillin resistant Staphylococcus aureus infection Type of Wound Date of Service: 01/13/19 Chief Complaint: Nonhealing ulcer abdominal wall and vulval area. History of Wound: Surgery 06/03/18 - 1. Surgical preparation lower anterior abdominal wall with incision and drainage and excisional debridement nonhealing abscess ulcer and skin and subcutaneous tissue for necrotizing soft tissue infection (450 cm2). 2. Surgical preparation vulva (mons pubis, left genitocrural area up to labia) with partial vulvectomy including deep subcutaneous tissue. Wound care -Mid abdominal pannus will stop Dakins solution and start Aquacel AG daily. Right abdominal cluster will apply antibiotic ointment. Operative culture - Proteus mirabilis, MRSA, and Bacteroides fragilis. She was treated with Unasyn and Zosyn and Doxycycline and has finished them. Prealbumin from 06/03/18 was 18.2. Encourage nutritional supplementation with protein to help the healing process. Progress of Wound: Left lower abdominal ulcer is improved. Due to the patient picking, she has multiple clusters of opened ulcers on right abdomen, which are slowly improving. - Physical Exam Vital Signs Temp Pulse Resp BP 97.2 F L 94 18 121/66 H 01/13/19 13:26 01/13/19 13:26 01/13/19 13:26 01/13/19 13:26 General: Alert, Oriented x3, Cooperative HEENT: Atraumatic Oral: Moist Mucosa Lungs: Normal air movement Cardiovascular: Regular rate Abdomen: Obese Extremities: Capillary Refill Less than 3 Seconds Skin: Ulcer/ Wound - Lower abdominal ulcer and right abdominal ulcer clusters from her picking/scratching Wound Measurements and Assessment WC - Nurse 1 - General Ulcer Measurement Start: 12/30/18 13:20 Freq: Status: Active Protocol: Activity Type Activity Date Activity User E-Sign Co-Sign Detail Recorded Client Recorded Date Recorded By Document 01/13/19 13:26 AN [id number] 01/13/19 13:38 AN 01/13/19 13:26 Wound Center Nurse 1 [Ulcer Assessment] #9 LOWER RIGHT ABDOMEN CLUSTER -Current Size (cm) - Length 3 -Current Size (cm) - Width 0.7 -Current Size (cm) - Depth 0.1 -Total Square Cm 2.1 -Photo Taken No -Classification - Thickness Full Thickness with Exposed Support Structure -Exudate Amt Medium -Exudate Type Serosanguineous -Wound Margin Distinct, Outline Attached -Granulation Amt Medium (34-66%) -Granulation Quality [place] -Necrosis Amt Medium (34-66%) -Necrotic Tissue Type Adherent Slough -Structure Exposed None/Limited to Skin Breakdown -Texture (Elsa-wound Skin Appearance) Assessed, Scarring -Moisture (Elsa-wound Skin Appearance Assessed ) -Color (Elsa-wound Skin Appearance) Assessed -Temperature (Elsa-wound Skin No Abnormality Appearance) (Pt Warm) -Tenderness on Palpation (Elsa-wound No Skin Appearance) -Ulcer Cleansing Rinsed/ Irrigated with Saline -Foul Odor after Cleansing No -Anesthetic Used 4% Lidocaine Solution #8 MID PANNUS -Current Size (cm) - Length 8.8 -Current Size (cm) - Width 2.0 -Current Size (cm) - Depth 0.1 -Total Square Cm 17.60 -Photo Taken No -Tunneling No -Undermining/Tunneling No -Classification - Thickness Full Thickness without Exposed Support Structure -Exudate Amt Medium -Exudate Type Serosanguineous -Wound Margin Distinct, Outline Attached -Granulation Amt Large (67-100%) -Granulation Quality Red -Necrosis Amt Small (1-33%) -Necrotic Tissue Type Adherent Slough -Structure Exposed Fat Layer Exposed -Texture (Elsa-wound Skin Appearance) Assessed, Scarring -Moisture (Elsa-wound Skin Appearance Assessed ) -Color (Elsa-wound Skin Appearance) Assessed, Erythema -Temperature (Elsa-wound Skin No Abnormality Appearance) (Pt Warm) -Tenderness on Palpation (Elsa-wound No Skin Appearance) -Ulcer Cleansing Rinsed/ Irrigated with Saline -Foul Odor after Cleansing No -Anesthetic Used 4% Lidocaine Solution WC - Nurse 2 - General Ulcer CM Notes Start: 12/30/18 13:20 Freq: Status: Active Protocol: Activity Type Activity Date Activity User E-Sign Co-Sign Detail Recorded Client Recorded Date Recorded By Document 01/13/19 13:45 [email or web address] [id number] 01/13/19 13:57 [email or web address] 01/13/19 13:45 Wound Center Nurse 2 [Procedure/Treatment] 10-right pannus -Time 13:47 -Correct Patient Yes -Correct Side, Site, Position Yes -Correct Procedure Yes -Procedure Performed Yes -Type of Procedure Debridement -Clinical Debridement Subcutaneous -Post Debridement Size (cm) - Length 0.5 -Post Debridement Size (cm) - Width 2.5 -Post Debridement Size (cm) - Depth 0.2 -Total Square Cm 1.25 -Wound/Ulcer Outcome Not Healed -Ulcer Cleansing Rinsed/ Irrigated with Saline -Foul Odor after Cleansing No -Bioengineered Tissue No -Bleeding Controlled with Pressure -Offloading No -Treatment Response Procedure Tolerated Well #9 LOWER RIGHT ABDOMEN CLUSTER -Time 13:49 -Correct Patient Yes -Correct Side, Site, Position Yes -Correct Procedure Yes -Procedure Performed Yes -Type of Procedure Debridement -Clinical Debridement Subcutaneous -Post Debridement Size (cm) - Length 24 -Post Debridement Size (cm) - Width 14.5 -Post Debridement Size (cm) - Depth 0.2 -Total Square Cm 348.0 -Wound/Ulcer Outcome Not Healed -Ulcer Cleansing Rinsed/ Irrigated with Saline -Foul Odor after Cleansing No -Bioengineered Tissue No -Bleeding Controlled with Pressure -Offloading No -Treatment Response Procedure Tolerated Well #8 MID PANNUS -Time 13:48 -Correct Patient Yes -Correct Side, Site, Position Yes -Correct Procedure Yes -Procedure Performed Yes -Type of Procedure Debridement -Clinical Debridement Subcutaneous -Post Debridement Size (cm) - Length 2.0 -Post Debridement Size (cm) - Width 8.8 -Post Debridement Size (cm) - Depth 0.2 -Total Square Cm 17.60 -Wound/Ulcer Outcome Not Healed -Ulcer Cleansing Rinsed/ Irrigated with Saline -Foul Odor after Cleansing No -Bioengineered Tissue No -Bleeding Controlled with Pressure -Offloading No -Treatment Response Procedure Tolerated Well [See Physician Procedure note for Specifics] Pain Scale: 0-10 Numeric [Pain] -Is Patient Pain Free? Yes Musculoskeletal: No Tenderness to Palpation of Joints or Extremities Neurological: Neuro grossly intact Psych/Mental Status: Normal Affect, Appropriate Debridement Note Post-Debridement Measurements/Treatment WC - Nurse 2 - General Ulcer CM Notes Start: 12/30/18 13:20 Freq: Status: Active Protocol: Activity Type Activity Date Activity User E-Sign Co-Sign Detail Recorded Client Recorded Date Recorded By Document 12/30/18 13:32 [id number] 12/30/18 13:39 Document 01/13/19 13:45 [id number] 01/13/19 13:57 12/30/18 01/13/19 13:32 13:45 Wound Center Nurse 2 10-right pannus -Time 13:47 -Correct Patient Yes -Correct Side, Site, Position Yes -Correct Procedure Yes -Procedure Performed Yes -Type of Procedure Debridement -Clinical Debridement Subcutaneous -Post Debridement Size (cm) - Length 0.5 -Post Debridement Size (cm) - Width 2.5 -Post Debridement Size (cm) - Depth 0.2 -Total Square Cm 1.25 -Wound/Ulcer Outcome Not Healed -Ulcer Cleansing Rinsed/ Irrigated with Saline -Foul Odor after Cleansing No -Bioengineered Tissue No -Bleeding Controlled with Pressure -Offloading No -Treatment Response Procedure Tolerated Well #9 LOWER RIGHT ABDOMEN CLUSTER -Time 13:38 13:49 -Correct Patient Yes Yes -Correct Side, Site, Position Yes Yes -Correct Procedure Yes Yes -Procedure Performed Yes Yes -Type of Procedure Debridement Debridement -Clinical Debridement Subcutaneous Subcutaneous -Post Debridement Size (cm) - Length 14 24 -Post Debridement Size (cm) - Width 27.0 14.5 -Post Debridement Size (cm) - Depth 0.1 0.2 -Total Square Cm 378.0 348.0 -Wound/Ulcer Outcome Not Healed Not Healed -Ulcer Cleansing Rinsed/ Rinsed/ Irrigated with Irrigated with Saline Saline -Foul Odor after Cleansing No No -Bioengineered Tissue No No -Bleeding Controlled with Pressure Pressure -Offloading No No -Treatment Response Procedure Procedure Tolerated Well Tolerated Well #8 MID PANNUS -Time 13:37 13:48 -Correct Patient Yes Yes -Correct Side, Site, Position Yes Yes -Correct Procedure Yes Yes -Procedure Performed Yes Yes -Type of Procedure Debridement Debridement -Clinical Debridement Subcutaneous Subcutaneous -Post Debridement Size (cm) - Length 3.8 2.0 -Post Debridement Size (cm) - Width 20 8.8 -Post Debridement Size (cm) - Depth 0.2 0.2 -Total Square Cm 76.0 17.60 -Wound/Ulcer Outcome Not Healed Not Healed -Ulcer Cleansing Rinsed/ Rinsed/ Irrigated with Irrigated with Saline Saline -Foul Odor after Cleansing No No -Bioengineered Tissue No No -Bleeding Controlled with Pressure Pressure -Offloading No No -Treatment Response Procedure Procedure Tolerated Well Tolerated Well Pain Scale: 0-10 Numeric Is Patient Pain Free? Yes Yes Wound debrided: mid lower abdomen is now two separate ulcers Type of Debridement: Excisional debridement Anesthesia Used: 4% Lidocaine Solution, 5% Lidocaine Gel Depth: Down to and including healthy tissue, in the subcutaneous layer Percentage of wound debrided: 100 Instrument Used: 5mm curette Tissue Removed: Subcutaneous tissue and slough Severity: Fat Layer Exposed Amount of bleeding with debridement: Mild Bleeding Controlled with: Pressure, Compression and gauze Patient tolerated procedure well - Additional Wound Wound debrided: Right abdominal cluster areas Laterality: Right Type of Debridement: Excisional debridement Anesthesia Used: 4% Lidocaine Solution, 5% Lidocaine Gel Depth: Down to and including healthy tissue, in the subcutaneous layer Percentage of wound debrided: 100 Instrument Used: 5mm curette Tissue Removed: Subcutaneous tissue and slough Severity: Limited To Skin Breakdown Amount of bleeding with debridement: Mild Bleeding Controlled with: Pressure, Compression and gauze Assessment/Plan Active Problems (Last Reviewed 07/04/18 @ 13:28 by Angelica Basurto) Skin ulcer of abdominal wall with fat layer exposed (Chronic) Personal history of Methicillin resistant Staphylococcus aureus infection (Chronic) Intertrigo (Chronic) abdominal wall skin crease intertrigo Panniculitis (Chronic) Type 2 diabetes mellitus (Chronic) Assessment: 1. Nonhealing ulcer abdominal wall and vulval area. 2. Right abdominal ulcer cluster. 3. Diabetes mellitus. 4. History of MRSA. Plan: Stop Dakins solution to lower mid abdominal ulcer and start daily aquacel AG. Start bactroban ointment to ulcers on right abdomen. Reinforced the daily washing with soap and water and that the dressings need to be changed daily. Patient is at [facility]. Prealbumin from 06/03/18 was 18.2. Encourage nutritional supplementation with protein to help the healing process. Cultures from 10/21/18 grew MRSA, Proteus mirabilis, Staphylococcus, epidermidis, Corynebacterium striatum, Pseudomonas aeroginosa. She is done with antibiotics. Encouraged patient to stop picking/scratching at the right abdominal ulcers. Follow up in 2 weeks. Code Visit 111xxx-113xx: 57095 Susy subq tissue 20 sq cm/< Add On Codes: 40631 Susy subq tissue add-on - x18
[2019-01-27 13:09] VITALS: BMI 42.3
--- NOTE | 2019-01-27 16:04 | PN.PCM_ITS ---
(1) Skin ulcer of abdominal wall with fat layer exposed Status: Chronic Code(s): L98.492 - Non-pressure chronic ulcer of skin of other sites with fat layer exposed (2) Intertrigo Status: Chronic Code(s): L30.4 - Erythema intertrigo Comment: abdominal wall skin crease intertrigo (3) Panniculitis Status: Chronic Code(s): M79.3 - Panniculitis, unspecified (4) Type 2 diabetes mellitus Status: Chronic Code(s): E11.9 - Type 2 diabetes mellitus without complications (5) Personal history of Methicillin resistant Staphylococcus aureus infection Status: Chronic Code(s): Z86.14 - Personal history of Methicillin resistant S taphylococcus aureus infection Type of Wound Date of Service: 01/27/19 Chief Complaint: Nonhealing ulcer abdominal wall and vulval area. History of Wound: Surgery 06/03/18 - 1. Surgical preparation lower anterior abdominal wall with incision and drainage and excisional debridement nonhealing abscess ulcer and skin and subcutaneous tissue for necrotizing soft tissue infection (450 cm2). 2. Surgical preparation vulva (mons pubis, left genitocrural area up to labia) with partial vulvectomy including deep subcutaneous tissue. Wound care -Mid abdominal pannus will stop Dakins solution and start Aquacel AG daily. Right abdominal cluster will apply antibiotic ointment. Operative culture - Proteus mirabilis, MRSA, and Bacteroides fragilis. She was treated with Unasyn and Zosyn and Doxycycline and has finished them. Prealbumin from 06/03/18 was 18.2. Encourage nutritional supplementation with protein to help the healing process. Progress of Wound: Improved - Physical Exam Vital Signs Temp Pulse Resp BP 97.2 F L 94 18 121/66 H 01/13/19 13:26 01/13/19 13:26 01/13/19 13:26 01/13/19 13:26 General: Alert, Oriented x3 HEENT: Atraumatic Oral: Moist Mucosa Lungs: Normal air movement Cardiovascular: Regular rate Abdomen: Soft, Obese Extremities: Capillary Refill Less than 3 Seconds Skin: Ulcer/ Wound - Lower abdomen ulcer and right abdomen cluster ulcers Wound Measurements and Assessment WC - Nurse 1 - General Ulcer Measurement Start: 12/30/18 13:20 Freq: Status: Active Protocol: Activity Type Activity Date Activity User E-Sign Co-Sign Detail Recorded Client Recorded Date Recorded By Document 01/27/19 13:09 WI [id number] 01/27/19 13:19 WI 01/27/19 13:09 Wound Center Nurse 1 [Ulcer Assessment] 10-right pannus -Current Size (cm) - Length 4.8 -Current Size (cm) - Width 19 -Current Size (cm) - Depth 0.8 -Total Square Cm 91.2 -Exudate Type Serosanguineous -Wound Margin Flat & Intact -Granulation Amt Large (67-100%) -Granulation Quality Pale,[place],Red -Slough/Fibrin No -Texture (Elsa-wound Skin Appearance) Assessed, Scarring -Moisture (Elsa-wound Skin Appearance Assessed, ) Maceration -Color (Elsa-wound Skin Appearance) Assessed -Temperature (Elsa-wound Skin No Abnormality Appearance) (Pt Warm) -Tenderness on Palpation (Elsa-wound No Skin Appearance) #9 LOWER RIGHT ABDOMEN CLUSTER -Current Size (cm) - Length 12.5 -Current Size (cm) - Width 11.5 -Current Size (cm) - Depth 0.1 -Total Square Cm 143.75 -Wound Margin Flat & Intact -Granulation Amt Large (67-100%) -Granulation Quality Pale,[place] -Slough/Fibrin No -Necrosis Amt None Present (0 %) -Texture (Elsa-wound Skin Appearance) Assessed, Scarring -Moisture (Elsa-wound Skin Appearance Assessed, ) Maceration -Color (Elsa-wound Skin Appearance) Assessed, Erythema -Temperature (Elsa-wound Skin No Abnormality Appearance) (Pt Warm) -Tenderness on Palpation (Elsa-wound No Skin Appearance) -Ulcer Cleansing Rinsed/ Irrigated with Saline -Foul Odor after Cleansing No -Anesthetic Used 4% Lidocaine Solution #8 MID PANNUS -Current Size (cm) - Length 2.0 -Current Size (cm) - Width 3.0 -Current Size (cm) - Depth 0.1 -Total Square Cm 6.00 -Exudate Amt Small -Exudate Type Serosanguineous -Wound Margin Flat & Intact -Granulation Amt Large (67-100%) -Granulation Quality Pale,[place],Red -Slough/Fibrin No -Texture (Elsa-wound Skin Appearance) Assessed, Scarring -Moisture (Elsa-wound Skin Appearance Assessed, ) Maceration -Color (Elsa-wound Skin Appearance) Assessed -Temperature (Elsa-wound Skin No Abnormality Appearance) (Pt Warm) -Tenderness on Palpation (Elsa-wound No Skin Appearance) -Ulcer Cleansing Rinsed/ Irrigated with Saline -Foul Odor after Cleansing No -Anesthetic Used 4% Lidocaine Solution WC - Nurse 2 - General Ulcer CM Notes Start: 12/30/18 13:20 Freq: Status: Active Protocol: Activity Type Activity Date Activity User E-Sign Co-Sign Detail Recorded Client Recorded Date Recorded By Document 01/27/19 13:30 [id number] 01/27/19 13:37 01/27/19 13:30 Wound Center Nurse 2 [Procedure/Treatment] 10-right pannus -Correct Patient No -Correct Side, Site, Position No -Correct Procedure No -Procedure Performed No -Post Debridement Size (cm) - Length 0 -Post Debridement Size (cm) - Width 0 -Post Debridement Size (cm) - Depth 0 -Total Square Cm 0 -Wound/Ulcer Outcome Healed- Epithelialized #9 LOWER RIGHT ABDOMEN CLUSTER -Time 13:34 -Correct Patient Yes -Correct Side, Site, Position Yes -Correct Procedure Yes -Procedure Performed Yes -Type of Procedure Debridement -Clinical Debridement Subcutaneous -Post Debridement Size (cm) - Length 18 -Post Debridement Size (cm) - Width 19 -Post Debridement Size (cm) - Depth 0.1 -Total Square Cm 342 -Wound/Ulcer Outcome Not Healed -Ulcer Cleansing Rinsed/ Irrigated with Saline -Foul Odor after Cleansing No -Bioengineered Tissue No -Bleeding Controlled with Pressure -Offloading No -Treatment Response Procedure Tolerated Well #8 MID PANNUS -Time 13:34 -Correct Patient Yes -Correct Side, Site, Position Yes -Correct Procedure Yes -Procedure Performed Yes -Type of Procedure Debridement -Clinical Debridement Subcutaneous -Post Debridement Size (cm) - Length 4.5 -Post Debridement Size (cm) - Width 20.0 -Post Debridement Size (cm) - Depth 1.0 -Total Square Cm 90.00 -Wound/Ulcer Outcome Not Healed -Ulcer Cleansing Rinsed/ Irrigated with Saline -Foul Odor after Cleansing No -Bioengineered Tissue No -Bleeding Controlled with Pressure -Offloading No -Treatment Response Procedure Tolerated Well [See Physician Procedure note for Specifics] Pain Scale: 0-10 Numeric [Pain] -Is Patient Pain Free? Yes Musculoskeletal: No Tenderness to Palpation of Joints or Extremities Neurological: Neuro grossly intact Psych/Mental Status: Normal Affect, Appropriate Debridement Note Post-Debridement Measurements/Treatment WC - Nurse 2 - General Ulcer CM Notes Start: 12/30/18 13:20 Freq: Status: Active Protocol: Activity Type Activity Date Activity User E-Sign Co-Sign Detail Recorded Client Recorded Date Recorded By Document 12/30/18 13:32 [id number] 12/30/18 13:39 Document 01/13/19 13:45 [id number] 01/13/19 13:57 Document 01/27/19 13:30 [id number] 01/27/19 13:37 12/30/18 01/13/19 01/27/19 13:32 13:45 13:30 Wound Center Nurse 2 10-right pannus -Time 13:47 -Correct Patient Yes No -Correct Side, Site, Position Yes No -Correct Procedure Yes No -Procedure Performed Yes No -Type of Procedure Debridement -Clinical Debridement Subcutaneous -Post Debridement Size (cm) - Length 0.5 0 -Post Debridement Size (cm) - Width 2.5 0 -Post Debridement Size (cm) - Depth 0.2 0 -Total Square Cm 1.25 0 -Wound/Ulcer Outcome Not Healed Healed- Epithelialized -Ulcer Cleansing Rinsed/ Irrigated with Saline -Foul Odor after Cleansing No -Bioengineered Tissue No -Bleeding Controlled with Pressure -Offloading No -Treatment Response Procedure Tolerated Well #9 LOWER RIGHT ABDOMEN CLUSTER -Time 13:38 13:49 13:34 -Correct Patient Yes Yes Yes -Correct Side, Site, Position Yes Yes Yes -Correct Procedure Yes Yes Yes -Procedure Performed Yes Yes Yes -Type of Procedure Debridement Debridement Debridement -Clinical Debridement Subcutaneous Subcutaneous Subcutaneous -Post Debridement Size (cm) - Length 14 24 18 -Post Debridement Size (cm) - Width 27.0 14.5 19 -Post Debridement Size (cm) - Depth 0.1 0.2 0.1 -Total Square Cm 378.0 348.0 342 -Wound/Ulcer Outcome Not Healed Not Healed Not Healed -Ulcer Cleansing Rinsed/ Rinsed/ Rinsed/ Irrigated with Irrigated with Irrigated with Saline Saline Saline -Foul Odor after Cleansing No No No -Bioengineered Tissue No No No -Bleeding Controlled with Pressure Pressure Pressure -Offloading No No No -Treatment Response Procedure Procedure Procedure Tolerated Well Tolerated Well Tolerated Well #8 MID PANNUS -Time 13:37 13:48 13:34 -Correct Patient Yes Yes Yes -Correct Side, Site, Position Yes Yes Yes -Correct Procedure Yes Yes Yes -Procedure Performed Yes Yes Yes -Type of Procedure Debridement Debridement Debridement -Clinical Debridement Subcutaneous Subcutaneous Subcutaneous -Post Debridement Size (cm) - Length 3.8 2.0 4.5 -Post Debridement Size (cm) - Width 20 8.8 20.0 -Post Debridement Size (cm) - Depth 0.2 0.2 1.0 -Total Square Cm 76.0 17.60 90.00 -Wound/Ulcer Outcome Not Healed Not Healed Not Healed -Ulcer Cleansing Rinsed/ Rinsed/ Rinsed/ Irrigated with Irrigated with Irrigated with Saline Saline Saline -Foul Odor after Cleansing No No No -Bioengineered Tissue No No No -Bleeding Controlled with Pressure Pressure Pressure -Offloading No No No -Treatment Response Procedure Procedure Procedure Tolerated Well Tolerated Well Tolerated Well Pain Scale: 0-10 Numeric Is Patient Pain Free? Yes Yes Yes Wound debrided: lower abdomen/pannus Laterality: Left Type of Debridement: Excisional debridement Anesthesia Used: 4% Lidocaine Solution, 5% Lidocaine Gel Depth: Down to and including healthy tissue, in the subcutaneous layer Percentage of wound debrided: 100 Instrument Used: 7mm curette Tissue Removed: Subcutaneous tissue and slough Severity: Fat Layer Exposed Amount of bleeding with debridement: Mild Bleeding Controlled with: Pressure, Compression and gauze Patient tolerated procedure well - Additional Wound Wound debrided: cluster of ulcers on right abdomen Laterality: Right Type of Debridement: Excisional debridement Anesthesia Used: 4% Lidocaine Solution Depth: Down to and including healthy tissue, in the subcutaneous layer Percentage of wound debrided: 100 Instrument Used: 5mm curette Tissue Removed: Subcutaneous tissue and slough Severity: Fat Layer Exposed Amount of bleeding with debridement: Mild Bleeding Controlled with: Pressure, Compression and gauze Patient tolerated procedure: Patient tolerated procedure well Assessment/Plan Assessment: 1. Nonhealing ulcer abdominal wall and vulval area. 2. Right abdominal ulcer cluster. 3. Diabetes mellitus. 4. History of MRSA. Plan: Lower mid abdominal ulcer daily aquacel AG. Silver hydrogel to ulcers on right abdomen. Reinforced the daily washing with soap and water and that the dressings need to be changed daily. Patient is at [facility]. Prealbumin from 06/03/18 was 18.2. Encourage nutritional supplementation with protein to help the healing process. Cultures from 10/21/18 grew MRSA, Proteus mirabilis, Staphylococcus, epidermidis, Corynebacterium striatum, Pseudomonas aeroginosa. She is done with antibiotics. Encouraged patient to stop picking/scratching at the right abdominal ulcers. Follow up 4 weeks. Code Visit 111xxx-113xx: 38233 Susy subq tissue 20 sq cm/< Add On Codes: 32154 Susy subq tissue add-on - x21
== END 2019-01-29 23:59 ==
LOC: WC 13:00
PROVIDERS: Family Provider Family Medicine; PCP Family Medicine; Visit Provider Surgery
DX: E11.622 Type 2 diabetes mellitus with other skin ulcer (principal); L30.4 Erythema intertrigo; M79.3 Panniculitis, unspecified; Z86.14 Personal history of Methicillin resistant Staphylococcus aureus infection; L98.492 Non-pressure chronic ulcer of skin of other sites with fat layer exposed; L98.491 Non-pressure chronic ulcer of skin of other sites limited to breakdown of skin
CPT/HCPCS: 11042; 11045

== ENCOUNTER 2019-02-24 08:28 | Outpatient (RCR) | payer MEDICARE, MEDICAID, SELFPAY ==
[2019-01-30 00:42] VITALS: BP 121/66; PULSE 94; RESP 18; TEMP 36.2
== END 2019-02-28 23:59 ==
LOC: WC 08:28
PROVIDERS: Family Provider Family Medicine; PCP Family Medicine; Visit Provider Surgery
DX: Z09 Encounter for follow-up examination after completed treatment for conditions other than malignant neoplasm (principal)

== ENCOUNTER 2019-03-03 12:19 | Outpatient (RCR) | payer MEDICARE, MEDICAID, SELFPAY ==
[2019-03-01 00:35] VITALS: BP 121/66; PULSE 94; RESP 18; TEMP 36.2
== END 2019-03-31 23:59 ==
LOC: WC 12:19
PROVIDERS: Family Provider Family Medicine; PCP Family Medicine; Visit Provider Surgery
DX: Z09 Encounter for follow-up examination after completed treatment for conditions other than malignant neoplasm (principal)

== ENCOUNTER 2019-03-09 10:33 | Observation (INO) | payer MEDICARE, MEDICAID, SELFPAY ==
[2019-03-09] VITALS (11 sets, daily range): BP systolic 91–113; BP diastolic 60–85; PULSE 82–93; RESP 12–19; TEMP 36.4–36.6; O2SAT 95–99; BMI 54.3; BMI 47.7; BMI 47.8
--- NOTE | 2019-03-09 10:42 | EKG12_ITS ---
Test Reason : Blood Pressure : / mmHG Vent. Rate : 083 BPM Atrial Rate : 083 BPM P-R Int : 192 ms QRS Dur : 092 ms QT Int : 384 ms P-R-T Axes : 030 009 181 degrees QTc Int : 451 ms Sinus rhythm with Premature atrial complexes Low voltage QRS Nonspecific T wave abnormality Abnormal ECG Confirmed by SANDY SAN, THIEN ([id number]), subeditor VITOR OSULLIVAN ([id number]) on 03/11/2019 11:43:06 AM Referred By: LASHAWN Confirmed By:THIEN DELGADO MD
--- NOTE | 2019-03-09 10:42 | RAD_ITS ---
STUDY: X-RAY CHEST REASON FOR EXAM: Female, 63 years old. Chest pain. TECHNIQUE: Single AP portable view of the chest. COMPARISON: Comparison is made with prior study dated January 27, 2015. FINDINGS: Limited examination. The patient is rotated. The left hemithorax unremarkable. Unable to assess the right hemithorax. RAD/Chest 1 View (Portable) IMPRESSION: Limited examination due to rotation. The left hemithorax is unremarkable. The right hemithorax was unable to be assessed due to the rotation of the patient. Electronically Signed: Abdirizak Courtney, at 11:26 EST , Service support ,
--- NOTE | 2019-03-09 10:49 | ED.VIS.GEN ---
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 with subsequent soft tissue abdominal wall abscess/infection multiple skin lesions cellulitis weakness neuromuscular dysfunction chronic kidney disease cellulitis obesity left below the knee amputation anemia urinary retention diabetes Patient was found to be hypotensive today she had vomiting and diarrhea for days given all the above the [facility] sent her to the hospital patient reports her wound management is ongoing at penitentiary she points to anterior abdominal wall lesion incision that is slowly healing in addition she has scattered lesions across her anterior abdominal wall and extremities to see state are red and draining slightly that she indicates are related to the fact that she picks at her skin, she does have quite a bit loose diarrhea discovering her Shay catheter in her lower body, she is also has diffuse whole body pain she is awake and alert her current blood pressure is 100 over palp Past Medical History - Allergies and Home Meds Allergies/Adverse Reactions: Allergies adhesive Allergy (Verified 03/09/19 11:33) Rash cefadroxil hydrate [From Duricef] Allergy (Verified 03/09/19 11:33) Rash cephalexin monohydrate [From Keflex] Allergy (Verified 03/09/19 11:33) Rash venom-honey bee [bee venom (honey bee)] Allergy (Verified 03/09/19 11:33) Rash Primary Care Physician: Leroy Marie MD [Primary Care Provider] - Past Medical History: - Surgical History: - - Multiple panniculectomy is for necrotizing soft tissue infection Smoking Status: Former smoker - Family History Maternal Family History: Reports: Diabetes, Heart Disease, Hypertension Paternal Family History: Reports: - - epilepsy Sibling Family History: Reports: Diabetes Review of Systems ROS: - Extensive as noted above General: Denies: Chills, Fever, Sweats Eyes: Denies: Visual changes - bilaterally, Diplopia ENT: Denies: Rhinorrhea, Sore throat Cardiovascular: Denies: Chest pain, Palpitations Respiratory: Denies: Dyspnea, Cough, Dyspnea on exertion Gastrointestinal: Reports: Vomiting, Diarrhea. Denies: Abdominal pain, Nausea, Melena, Hematochezia Genitourinary: Denies: Dysuria, Hematuria, Frequency Musculoskeletal: Denies: Back pain, Extremity Pain Skin: Denies: Rash, Wounds Neurological: Denies: Headache, Weakness, Numbness Physical Exam Vital Signs/Narrative: Vital Signs Temp Pulse Resp BP Pulse Ox 03/09/19 10:30 97.8 F 84 15 102/63 97 General: Well nourished, Well developed, Unkempt, No Acute Distress Head: Normocephalic, Atraumatic Eyes: Perrl, EOMI ENT: Moist mucous membranes, No rhinorrhea Neck: Supple, Nontender Cardiovascular: Regular rate, Regular rhythm, No murmurs Respiratory: No distress, CTA bilaterally, Chest nontender, Diminished Abdomen: Soft, Nontender, Nondistended, Normal bowel sounds, - - She has over her pannus in the center of that area what appears to be a healing abdominal incision her wound is linear it is not actively draining, there are scattered multiple circular lesions over the anterior abdominal wall that have some degree of drainage to them that are red there is some on her upper extremities similarly there is no crepitus subcu air or obvious abscess to any of these, she is stooling watery diarrhea this covering her perineum and Shay we did not notice any obvious lesions over her low lumbar back region just red skin Back: Nontender, Normal Inspection Extremities: Nontender, No edema Skin: Normal color, No rash Neurological: Alert, Oriented x3, Cranial nerves II-XII grossly intact, Normal Strength, Normal Sensation Psychological: Normal affect, Normal Mood Diagnostic/Tx/Re-eval - Medical Decision Making The differential is rather extensive she has multiple medical problems the cardiomyopathy diabetes renal failure chronic skin infections cellulitis IV fluids IV antibiotics lactate The patient screening labs reveal a creatinine of 2.9 white count about 13, lactate negative the patient's creatinines been that high before but not recently mostly seen Ynes is lower, we have replaced Shay catheter UA is pending we will start her IV fluids IV antibiotics her vital signs of stabilized given the copious diarrhea the elevation in the creatinine the possibility of underlying infection UTI etc. I have asked the hospital see her for the management admission Admit pending hospitalist evaluation Impression worsening renal failure, copious diarrhea, hypotension urinary tract infection ED Disposition - Plan for ED Patient: Diagnosis: Gastroenteritis, Abdominal panniculus, CKD stage 3 secondary to diabetes Referrals: Leroy Marie MD [Primary Care Provider] -
[2019-03-09] MEDS: 0.9% Normal Saline 1,000 ML 1000 ML IV (11:22)
[2019-03-09] MEDS: Ceftriaxone 1 GM/50 ML BAG IV (11:23)
[2019-03-09 11:27] LABS: Absolute Lymphocyte Count 0.66 X10^3/uL (0.83-4.51); Absolute Neutrophil Count 9.8 X10^3/uL (2.0-7.7); Basophil# 0.05 X10^3/uL; Basophil% 0.4 % (0-1); Eosinophil# 0.24 X10^3/uL; Hematocrit 39.5 % (37-47); Hemoglobin 12.3 g/dL (12.0-15.0); Lymphocyte # 0.66 X10^3/ul (4.0); Lymphocyte % 5.5 % (19-41); Mean Corp Hgb Conc 31.1 g/dL (32-36); Mean Corpuscular Hgb 25.9 pg (27.0-32.0); Mean Corpuscular Volume 83.2 fL (81-99); Monocyte% 9.2 % (0-10); NRBC Flagged by Analyzer 0 % (0-5); Neutrophil # 9.82 X10^3/uL (2.7-7.7); Neutrophil % 82.4 % (47-70); Platelet Count 305 K/mm3 (150-450); RBC Distribution Width CV 15.1 % (11.6-14.6); RBC Distribution Width SD 44.8 fl (35.1-43.9); Red Blood Count 4.75 M/mm3 (4.2-5.4); White Blood Count 11.9 K/mm3 (4.4-11.0)
[2019-03-09 11:41] LABS: International Normalized Ratio 1.4; Prothrombin Time (Protime)PT. 17.1 SECONDS (11.7-14.9)
[2019-03-09 11:48] LABS: Anion Gap 6 (5-15); BUN 72 mg/dL (7-18); BUN/Creat Ratio 24.8 RATIO (10-20); Calcium,Total 8.4 mg/dL (8.5-10.1); Chloride 107 mmol/L (98-107); EST Glomerular Filtration Rate 18 mL/min (>60); Est Glom Filt Rate - Afr Amer 21 mL/min (>60); Estimated Creatinine Clearance 17.59 ml/min; Glucose 74 mg/dL (74-106); Potassium 5.3 mmol/L (3.5-5.1); Sodium Level 140 mmol/L (136-145)
--- NOTE | 2019-03-09 12:00 | ED.RN ---
PT COMPLAINT OF TOO MUCH PAIN WHILE CLEANING HER UP. PT REFUSED TO KEEP TURNING AT THIS MOMENT. NOTIFIED DR. HARDIN ABOUT PAINS PAIN. ORDERED GIVEN FOR NAUSEA AND PAIN MEDS. WILL GIVE TO PT THEN CONTINUE TO CLEAN HER AND PLACE NEW CATHETER.
[2019-03-09] MEDS: Morphine 4 MG/ML Syringe IV (12:07)
[2019-03-09] MEDS: Ondansetron 4 MG/2 ML Vial IV (12:07)
[2019-03-09 12:32] LABS: Lactic Acid 0.8 mmol/L (0.4-1.9)
[2019-03-09 13:19] LABS: Mucous, Urine 0 SEEN /hpf (<or=2+); Red Blood Cells-Urine 0 SEEN /hpf (0-5); Squamous Epithelial Cells - UA 0 SEEN /hpf (5-10)
[2019-03-09 13:31] LABS: Color, Urine Yellow (Yellow); Glucose, Dipstick Normal (Normal); Ketone-Dipstick Negative (Negative); Leukocyte Esterase-Dipstick 500 /ul (Negative); Nitrite-Dipstick Negative (Negative); Occult Blood-Urine 250 /ul (Negative); Protein-Dipstick 100 mg/dl (Negative); Specific Gravity, Urine 1.015 (1.002-1.030); Urine Bilirubin Dipstick Negative (Negative); Urine Clarity Turbid (Clear); Urine Urobilinogen Normal (Normal)
[2019-03-09 13:36] LABS: Bacteria 2+ /hpf (None Seen); White Blood Cells >100 SEEN /hpf (0-5)
--- NOTE | 2019-03-09 15:29 | HP.PCM_ITS ---
Problem List (1) Skin ulcer of abdominal wall with fat layer exposed Status: Resolved (2) Personal history of Methicillin resistant Staphylococcus aureus infection Status: Chronic (3) GI bleed Status: Resolved Qualifiers: GI bleed type/associated pathology: gastrointestinal hemorrhage with hematemesis Qualified Code(s): K92.0 - Hematemesis (4) Necrotizing soft tissue infection Status: Chronic (5) Intertrigo Status: Chronic Comment: abdominal wall skin crease intertrigo (6) Panniculitis Status: Chronic (7) Abdominal panniculus Status: Chronic (8) Ulcer of abdomen wall with fat layer exposed Status: Chronic (9) Abdominal wall abscess Status: Chronic (10) Ulceration, vulva Status: Acute (11) Vulvar abscess Status: Acute (12) Iron deficiency anemia Status: Chronic (13) Chronic respiratory failure with hypoxia Status: Chronic (14) Gastroenteritis Status: Acute (15) Anemia in chronic kidney disease Status: Acute Qualifiers: (16) Osteomyelitis of foot, right, acute Status: Acute (17) UTI (urinary tract infection) Status: Acute (18) Sepsis Status: Acute (19) Neutrophilic leukocytosis Status: Acute (20) Cellulitis of right foot Status: Acute (21) Type 2 diabetes mellitus with diabetic polyneuropathy Status: Chronic (22) Diabetic ulcer of right foot Status: Acute (23) History of tobacco abuse Status: Chronic (24) HLD (hyperlipidemia) Status: Chronic (25) HTN (hypertension) Status: Chronic (26) Morbid obesity Status: Chronic Comment: bmi 46 (27) Noncompliance Status: Chronic Comment: with diabetic therapy (28) Personality disorder Status: Chronic (29) History of self-harm Status: Chronic Comment: scratching and picking (30) Self neglect Status: Chronic (31) Type 2 diabetes mellitus Status: Chronic (32) Bipolar disorder Status: Chronic (33) Anxiety Status: Chronic (34) CKD stage 3 secondary to diabetes Status: Chronic (35) Type 2 diabetes mellitus with diabetic polyneuropathy Status: Chronic History of Present Illness Date of Admission: 03/09/19 Chief Complaint: Low blood pressure at [facility]. The patient is a 63 year old F who presents emergency room from senior care facility due to reported low blood pressure. Patient reports her blood pressure was noted to be in the 80s systolically and she felt dizzy at that time. She reports loose stool over the past few days. Denies recent antibiotic use. Denies history of C. difficile. No nausea, vomiting. Denies fever, chills. Denies other associated complaints. She has a past medical history of chronic kidney disease stage IV, hypertension, hyperlipidemia, anemia of chronic disease/iron deficiency anemia, type 2 diabetes mellitus, morbid obesity, anxiety, depression, bipolar disorder, personality disorder. Patient is a long- term SNF resident. Past Medical History Past Medical History (Chronic Problems): Chronic Problems (Last Reviewed 07/04/18 @ 13:28 by Angelica Basurto) Personal history of Methicillin resistant Staphylococcus aureus infection (Chronic) Necrotizing soft tissue infection (Chronic) Intertrigo (Chronic) abdominal wall skin crease intertrigo Panniculitis (Chronic) Abdominal panniculus (Chronic) Ulcer of abdomen wall with fat layer exposed (Chronic) Abdominal wall abscess (Chronic) Iron deficiency anemia (Chronic) Chronic respiratory failure with hypoxia (Chronic) Type 2 diabetes mellitus with diabetic polyneuropathy (Chronic) History of tobacco abuse (Chronic) HLD (hyperlipidemia) (Chronic) HTN (hypertension) (Chronic) Morbid obesity (Chronic) bmi 46 Noncompliance (Chronic) with diabetic therapy Personality disorder (Chronic) History of self-harm (Chronic) scratching and picking Self neglect (Chronic) Type 2 diabetes mellitus (Chronic) Bipolar disorder (Chronic) Anxiety (Chronic) 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 2 diabetes mellitus with diabetic polyneuropathy (Chronic) Medical History: Medical History (Last Reviewed 07/04/18 @ 13:28 by Angelica Basurto) Necrotizing soft tissue infection (Chronic) M79.89 Intertrigo (Chronic) L30.4 abdominal wall skin crease intertrigo Panniculitis (Chronic) M79.3 Abdominal panniculus (Chronic) E65 Ulcer of abdomen wall with fat layer exposed (Chronic) L98.492 Abdominal wall abscess (Chronic) L02.211 Ulceration, vulva (Acute) N76.6 Vulvar abscess (Acute) N76.4 Iron deficiency anemia (Chronic) D50.9 Chronic respiratory failure with hypoxia (Chronic) J96.11 Gastroenteritis (Acute) K52.9 Anemia in chronic kidney disease (Acute) N18.9, D63.1 Osteomyelitis of foot, right, acute (Acute) M86.171 UTI (urinary tract infection) (Acute) N39.0 Sepsis (Acute) A41.9 Neutrophilic leukocytosis (Acute) D72.9 Cellulitis of right foot (Acute) L03.115 Type 2 diabetes mellitus with diabetic polyneuropathy (Chronic) E11.42 Diabetic ulcer of right foot (Acute) E11.621, L97.519 History of tobacco abuse (Chronic) Z87.891 HLD (hyperlipidemia) (Chronic) E78.5 HTN (hypertension) (Chronic) I10 Morbid obesity (Chronic) E66.01 bmi 46 Noncompliance (Chronic) Z91.19 with diabetic therapy Personality disorder (Chronic) F60.9 History of self-harm (Chronic) Z91.5 scratching and picking Self neglect (Chronic) R46.89 Type 2 diabetes mellitus (Chronic) E11.9 Bipolar disorder (Chronic) F31.9 Anxiety (Chronic) F41.9 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) E11.22, N18.3 Type 2 diabetes mellitus with diabetic polyneuropathy (Chronic) E11.42 GI bleed (Resolved) K92.2 Allergies adhesive Allergy (Verified 03/09/19 11:33) Rash cefadroxil hydrate [From Duricef] Allergy (Verified 03/09/19 11:33) Rash cephalexin monohydrate [From Keflex] Allergy (Verified 03/09/19 11:33) Rash venom-honey bee [bee venom (honey bee)] Allergy (Verified 03/09/19 11:33) Rash Home Medications: Ambulatory Orders Medication Instructions Recorded Ascorbic Acid [Vitamin C] 500 mg PO BID 05/28/18 Calcium Carbonate [Tums] 500 mg PO TIDCM 05/28/18 Calcium Carbonate/Vitamin D3 1 ea PO BID 05/28/18 [Calcium 600-Vit D3 200 Tablet] Meclizine HCl 25 mg PO Q6H PRN PRN 05/28/18 Multivitamin [Multivitamins] 1 ea PO DAILY 05/28/18 Pravastatin Sodium 10 mg PO DAILY 05/28/18 hydrOXYzine pamoate capsule 25 mg PO DAILY 05/28/18 [Vistaril pamoate capsule] Ondansetron [Zofran Odt] 4 mg PO Q6H PRN PRN 06/10/18 Pantoprazole Sodium [Protonix] 40 mg PO DAILY #30 tab 06/14/18 Hydrocodone/Acetaminophen [[place] 1 each PO Q8H PRN PRN 07/25/18 5-325 Tablet] Cholecalciferol (VIT D3) [Vitamin 2,000 unit PO DAILY 03/09/19 D] Ferrous Sulfate 325 mg PO BID 03/09/19 Furosemide [Lasix] 40 mg PO BIDLX 03/09/19 Hydroxyzine Pamoate 50 mg PO QHS PRN 03/09/19 Lisinopril 5 mg PO DAILY 03/09/19 Metoprolol Tartrate 25 mg PO BID 03/09/19 Nitroglycerin 0.4 mg SL PRN PRN 03/09/19 Nut.tx.gluc Intol,Lf,Soy/Fiber 237 ml PO TID 03/09/19 [Boost Glucose Control Liquid] Paroxetine HCl [Paxil] 40 mg PO DAILY 03/09/19 Pyridoxine HCl [Vitamin B-6] 100 mg PO DAILY 03/09/19 Quetiapine Fumarate [Seroquel] 50 mg PO DAILY 03/09/19 Quetiapine Fumarate [Seroquel] 300 mg PO DAILY 03/09/19 Venlafaxine HCl [Venlafaxine HCl 75 mg PO DAILY 03/09/19 ER] Venlafaxine HCl [Venlafaxine HCl 150 mg PO DAILY 03/09/19 ER] Surgical History: Surgical History (Last Updated 07/04/18 @ 13:29 by Angelica Basurto) History of colonoscopy Z98.890 History of esophagogastroduodenoscopy (EGD) Z98.890 Surgical History: - - Multiple panniculectomy is for necrotizing soft tissue infection Psychiatric History: Anxiety, Bipolar, Depression 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 Denies: Chest Pain, Palpitations, Syncope Respiratory: Denies: Cough, Shortness of breath at rest, Sputum production Gastrointestinal: Denies: Abdominal Pain, Nausea, Vomiting Genitourinary: Denies: Dysuria Musculoskeletal: Denies: Joint Pain, Joint Tenderness Skin: Reports: - - Multiple skin abrasions due to chronic picking Neurological: Denies: Numbness, Tingling, Focal weakness Psychiatric: Reports: Anxiety, Depression. Denies: Homicidal Ideations, Suicidal Ideations Hematologic/ Lymphatic: Denies: Easy Bruising, Easy Bleeding VTE Information - Inpt Only VTE Present on Admission: No VTE Mechan Device Prophylaxis: None VTE Pharm Prophylaxis ordered?: Yes Patient Problems: Active and Suspected Problems (Last Reviewed 07/04/18 @ 13:28 by Angelica Basurto) Gastroenteritis (Acute) - Physical Exam Vitals/I&O's: Vital Signs Temp Pulse Resp BP Pulse Ox 97.7 F L 86 16 99/60 97 03/09/19 15:19 03/09/19 15:19 03/09/19 15:19 03/09/19 15:19 03/09/19 15: Oxygen Flow Rate (L/min) 2 Oxygen Delivery Method Nasal Cannula Weight: 305 lb Body Mass Index (BMI) 47.7 Finger Stick Blood Glucose 122 Intake and Output for Last 24 Hours 03/07/19 03/08/19 03/09/19 23:59 23:59 23:59 Intake Total 1325 / 1325 Balance 1325 / 1325 General: Alert, Oriented x3, Cooperative HEENT: Atraumatic, PERRLA, EOMI, Normocephalic Oral: Dry Mucosa Neck: Supple, No JVD, Negative Carotid Bruits Lungs: Clear to auscultation, Diminished Cardiovascular: Regular rate, Regular Rhythm, Normal S1, Normal S2, No murmurs Abdomen: Bowel Sounds Present, Soft, Non Tender, Non-Distended, Obese Extremities: No clubbing, No cyanosis, Capillary Refill Less than 3 Seconds Skin: - - Generalized scattered abrasions secondary to chronic picking, abdominal dressings covering scabbed areas intact. Musculoskeletal: No Tenderness to Palpation of Joints or Extremities, - - Left BKA Neurological: Cranial nerves II-XII grossly intact, Neuro grossly intact Psych/Mental Status: Normal Affect, Appropriate Laboratory Results 03/09/19 11:15: WBC 11.9 H, RBC 4.75, Hgb 12.3, Hct 39.5, MCV 83.2, MCH 25.9 L, MCHC 31.1 L, RDW Std Deviation 44.8 H, RDW Coeff of Annmarie 15.1 H, Plt Count 305, MPV 10.0, Immature Gran % (Auto) 0.500, Neut % (Auto) 82.4 H, Lymph % (Auto) 5.5 L, [place] % (Auto) 9.2, Eos % (Auto) 2.0, Baso % (Auto) 0.4, Absolute Neuts (auto) 9.8 H, Absolute Lymphs (auto) 0.66 L, Nucleated RBC % 0 03/09/19 11:15: Sodium 140, Potassium 5.3 H, Chloride 107, Carbon Dioxide 27.0, Anion Gap 6, BUN 72 H, Creatinine 2.90 H, Estim Creat Clear Calc 17.59, Est GFR (MDRD) Af Amer 21 L, Est GFR (MDRD) Non-Af 18 L, BUN/Creatinine Ratio 24.8 H, Glucose 74, Calcium 8.4 L, Troponin I < 0.015 03/09/19 11:15: PT 17.1 H, INR 1.4 03/09/19 11:15: Lactic Acid Cancelled 03/09/19 12:01: Lactic Acid 0.8 03/09/19 13:10: Urine Color Yellow, Urine Clarity Turbid, Urine pH 6.0, Ur Specific [place] 1.015, Urine Protein 100 H, Urine Glucose (UA) Normal, Urine Ketones Negative, Urine Occult Blood 250 H, Urine Nitrite Negative, Urine Bilirubin Negative, Urine Urobilinogen Normal, Ur Leukocyte Esterase 500 H, Urine RBC 0 SEEN, Urine WBC >100 SEEN, Ur Squamous Epith Cells 0 SEEN, Urine Bacteria 2+, Urine Mucus 0 SEEN Current Medications Calamine/Phenol (Calmoseptine Ointment) 1 applic TOPICAL BID MARCOS; Protocol Influenza Virus Vaccine Quadrival (Flucelvax /Fluzone [id number]) 0.5 ml IM .ONCE ONE Stop: 03/10/19 10:01 Sodium Chloride () 10 - 40 ml IV UD PRN PRN Reason: SALINE FLUSH Assessment/Plan All Active Problems (Last Reviewed 07/04/18 @ 13:28 by Angelica Basurto) Skin ulcer of abdominal wall with fat layer exposed (Resolved) Ulceration, vulva (Acute) Vulvar abscess (Acute) Gastroenteritis (Acute) Anemia in chronic kidney disease (Acute) Osteomyelitis of foot, right, acute (Acute) UTI (urinary tract infection) (Acute) Sepsis (Acute) Neutrophilic leukocytosis (Acute) Cellulitis of right foot (Acute) Diabetic ulcer of right foot (Acute) GI bleed (Resolved) MSSA (methicillin susceptible Staphylococcus aureus) (Resolved) Mycotic cystitis (Resolved) Osteomyelitis (Resolved) 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 Acute kidney injury on chronic kidney disease stage IV-hold nephrotoxic regimen. IV fluids, trend BMP. 2. Acute diarrhea-denies recent antibiotic use or history of C. difficile. C. difficile negative. Enteric bacteriology pending. 3. Questionable UTI- bacteriuria, chronic Shay due to urinary retention. Shay catheter changed in emergency room. Afebrile. Very mild leukocytosis. Follow urine culture. 4. Transient hypotension-improved on admission. Hold BP regimen. IV fluids. 5. Chronic hypoxia respiratory failure-on baseline O2 requirements. Continue supplement oxygen to maintain O2 at or above 90%. 6. 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 Recent follow-up 02/01/2019. Continue dressing changes which include Aquasol AG to lower mid abdominal ulcer, silver hydrogel to ulcers on right abdomen. Keep areas covered. Patient has a history of picking/scratching abdominal ulcers. Wound RN consult. 7. Hypertension-continue metoprolol. Other BP regimen on hold given hypotension. 8. Hyperlipidemia- continue statin. 9. Anemia of chronic disease/iron deficiency anemia-stable, continue iron supplementation. 10. Type 2 diabetes [id number] AC at bedtime with sliding scale insulin. 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 11. Morbid obesity- calorie controlled diet. Nutrition consult. 12. Anxiety/depression/bipolar disorder/personality disorder-continue venlafaxine, Seroquel. DVT prophylaxis- heparin sc This patient was seen by DIMPLE Nicole under the supervision of Dr. Riley.
--- NOTE | 2019-03-09 15:35 | NURSING ---
wound photo: left lower abdomen
--- NOTE | 2019-03-09 15:36 | NURSING ---
wound photo: abdomen
--- NOTE | 2019-03-09 15:39 | NURSING ---
Pt had large loose stool on admission to the unit. patient has a very difficult time turning d/t the very large pannus and dependant edema to the right abdomen. pt yelling and hitting at the nurse to stop. amarilis-rectal area very red and excoriated. orders received for calmoseptine.
[2019-03-09] MEDS: 0.9% Saline Lock 10 ML Syringe IV (17:47)
[2019-03-09] MEDS: 0.9% Normal Saline 1,000 ML 100 ML IV (17:47)
[2019-03-09 22:10] LABS: Bedside Glucose 39 mg/dL (70-110)
[2019-03-09 22:10] LABS: Bedside Glucose 59 mg/dL (70-110)
[2019-03-09] MEDS: Glucerna Shake 120 ML LIQUID PO (22:45)
[2019-03-09] MEDS: Heparin Injection (Vial) 5,000 UNIT/ML VIAL 5000 UNIT SC (22:45)
[2019-03-09] MEDS: Metoprolol Tartrate 25 MG Tablet 12.5 MG PO (22:46)
[2019-03-09] MEDS: QUEtiapine 100 MG Tablet 300 MG PO (22:46)
[2019-03-09] MEDS: Pravastatin 20 MG Tablet 10 MG PO (22:46)
[2019-03-09 23:00] LABS: Bedside Glucose 75 mg/dL (70-110)
[2019-03-10] VITALS (8 sets, daily range): BP systolic 86–104; BP diastolic 49–60; PULSE 74–86; RESP 16–18; TEMP 36.4–36.9; O2SAT 98–100
[2019-03-10 00:11] LABS: Bedside Glucose 108 mg/dL (70-110)
[2019-03-10 02:31] LABS: Bedside Glucose 93 mg/dL (70-110)
[2019-03-10] MEDS: 0.9% Normal Saline 1,000 ML 100 ML IV (02:32)
[2019-03-10 04:50] LABS: Bedside Glucose 96 mg/dL (70-110)
[2019-03-10 06:09] LABS: Anion Gap 8 (5-15); BUN 64 mg/dL (7-18); BUN/Creat Ratio 23.5 RATIO (10-20); Calcium,Total 8.1 mg/dL (8.5-10.1); Chloride 110 mmol/L (98-107); Creatinine, Serum 2.72 mg/dL (0.55-1.02); EST Glomerular Filtration Rate 19 mL/min (>60); Est Glom Filt Rate - Afr Amer 23 mL/min (>60); Estimated Creatinine Clearance 21.12 ml/min; Glucose 79 mg/dL (74-106); Potassium 4.1 mmol/L (3.5-5.1); Sodium Level 141 mmol/L (136-145)
[2019-03-10 06:36] LABS: Bedside Glucose 78 mg/dL (70-110)
--- NOTE | 2019-03-10 09:21 | CASEMGMT ---
Social Work Note Pt is listed as being from [facility] as a skilled nursing resident. SW placed a call to [facility] and spoke with Ghazala. 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 Anette Long ACCESS REGISTRAR, ARTISTIC DIRECTOR
[2019-03-10] MEDS: Menthol/Lanolin/Calamine/Znox 113 GM Tube 1 APPLIC TOPICAL (10:08)
[2019-03-10] MEDS: Venlafaxine XR 75 MG Capsule 225 MG PO (10:09)
[2019-03-10] MEDS: Heparin Injection (Vial) 5,000 UNIT/ML VIAL 5000 UNIT SC (10:11)
[2019-03-10] MEDS: Metoprolol Tartrate 25 MG Tablet 12.5 MG PO (10:11)
[2019-03-10] MEDS: Pantoprazole Sodium 40 MG Tablet PO (10:12)
[2019-03-10] MEDS: hydrOXYzine PAM 25 MG Capsule PO (10:12)
[2019-03-10] MEDS: Paroxetine 20 MG Tablet 40 MG PO (10:13)
[2019-03-10 11:46] LABS: Bedside Glucose 103 mg/dL (70-110)
--- NOTE | 2019-03-10 12:06 | PCM.EXTCARCO ---
- Diet 03/09/19 16:38 Diet: Calorie Controlled Food consistency:: Regular Liquid Consistency:: Regular/Thin How many daily calories?: 1800 calorie - Routine Orders/Code Status Enema Type: Fleetz Enema Frequency: Daily PRN Suppository Type: Dulcolax 10mg Suppository Frequency: Daily PRN O2 Liters per Minute: 2 O2 Frequency: Continuous Keep PO Greater than or Equal to (%): 90 Routine Lab Work: - - BMP in 3 days - Wound(s) ABDOMEN Wound Type: scattered open areas from picking Dressing Change: Adaptic GROIN Wound Type: EXCORIATION BACK Wound Type: Self scratching and picking left lower abdomen Wound Type: healing surgical wound Dressing Change: Aquacel - Suggestions for Active Care Change Position every (hours): 2 Times a day to sit in chair: 3 - Therapies Physical Therapy: Eval and Treat Occupational Therapy: Eval and Treat - Problem/Diagnosis (1) Skin ulcer of abdominal wall with fat layer exposed Status: Resolved Current Visit: No (2) Personal history of Methicillin resistant Staphylococcus aureus infection Status: Chronic Current Visit: No (3) GI bleed Status: Resolved Current Visit: No (4) Necrotizing soft tissue infection Status: Resolved Current Visit: No (5) Intertrigo Status: Chronic Comment: abdominal wall skin crease intertrigo Current Visit: No (6) Abdominal panniculus Status: Chronic Current Visit: Yes (7) Abdominal wall abscess Status: Chronic Current Visit: No (8) Ulceration, vulva Status: Acute Current Visit: No (9) Vulvar abscess Status: Chronic Current Visit: No (10) Iron deficiency anemia Status: Chronic Current Visit: No (11) Chronic respiratory failure with hypoxia Status: Chronic Current Visit: No (12) Gastroenteritis Status: Acute Current Visit: Yes (13) Anemia in chronic kidney disease Status: Chronic Current Visit: No (14) Osteomyelitis of foot, right, acute Status: Resolved Current Visit: No (15) UTI (urinary tract infection) Status: Ruled-out Current Visit: No (16) Neutrophilic leukocytosis Status: Acute Current Visit: No (17) Cellulitis of right foot Status: Acute Current Visit: No (18) Type 2 diabetes mellitus with diabetic polyneuropathy Status: Chronic Current Visit: No (19) Diabetic ulcer of right foot Status: Chronic Current Visit: No (20) History of tobacco abuse Status: Chronic Current Visit: No (21) HLD (hyperlipidemia) Status: Chronic Current Visit: No (22) HTN (hypertension) Status: Chronic Current Visit: No (23) Morbid obesity Status: Chronic Comment: bmi 46 Current Visit: No (24) Noncompliance Status: Chronic Comment: with diabetic therapy Current Visit: No (25) Personality disorder Status: Chronic Current Visit: No (26) History of self-harm Status: Chronic Comment: scratching and picking Current Visit: No (27) Self neglect Status: Chronic Current Visit: No (28) Type 2 diabetes mellitus Status: Chronic Current Visit: No (29) Bipolar disorder Status: Chronic Current Visit: No (30) Anxiety Status: Chronic Current Visit: No (31) CKD stage 3 secondary to diabetes Status: Chronic Current Visit: No (32) Type 2 diabetes mellitus with diabetic polyneuropathy Status: Chronic Current Visit: No (33) Hypotension Status: Acute Current Visit: Yes - Allergies/Procedures Done in Hospital Allergies/Adverse Reactions: Allergies adhesive Allergy (Verified 03/09/19 11:33) Rash cefadroxil hydrate [From Duricef] Allergy (Verified 03/09/19 11:33) Rash cephalexin monohydrate [From Keflex] Allergy (Verified 03/09/19 11:33) Rash venom-honey bee [bee venom (honey bee)] Allergy (Verified 03/09/19 11:33) Rash Procedures: None - Type of Care/Length of Stay Estimated LOS: More Than 30 Days Type of Care Needed: Skilled Rehab Potential: Fair Prognosis: Fair - Additional Orders/Day of Discharge Additional Orders: Hold lasix until repeat BMP in 3 days. H&P will serve as current which was dated: 03/09/19 Day of Discharge: 03/10/19 - Dietary and Speech Recommendations Dietitian Recommendations/Changes: Suggest advance diet as tolerated to 2000 calorie; cardiac/low sodium with protein/K+ restriction as indicated for CKD. Suggest Yunier 1 packet BID for wound healing--order from pharmacy. - Follow Up Care Primary Care Physician: Leroy Marie MD [Primary Care Provider] - Please follow up with your Primary Care Physician in: 1 Week
--- NOTE | 2019-03-10 12:10 | PCM.DC.SUM ---
Discharge Date and Diagnosis Date of Admission: 03/09/19 Date of Discharge: 03/10/19 - Primary Discharge Diagnosis Active and Suspected Problems (Last Reviewed 07/04/18 @ 13:28 by Angelica Basurto) 1. Acute kidney injury on chronic kidney disease stage IV 2. Acute diarrhea, viral gastroenteritis-other infectious etiology ruled out. 3. 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 4. Hypotension-secondary to hypovolemia, improved. 5. Recent diagnosis cardiomyopathy with EF 20% 6. 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 Hypertension 8. Hyperlipidemia 9. Anemia of chronic disease/iron deficiency anemia 10. Type 2 diabetes mellitus 11. Morbid obesity 12. Anxiety/depression/bipolar disorder/personality disorder 13. 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) History of tobacco abuse (Chronic) HLD (hyperlipidemia) (Chronic) HTN (hypertension) (Chronic) Morbid obesity (Chronic) bmi 46 Noncompliance (Chronic) with diabetic therapy Personality disorder (Chronic) History of self-harm (Chronic) scratching and picking Self neglect (Chronic) Type 2 diabetes mellitus (Chronic) Bipolar disorder (Chronic) Anxiety (Chronic) 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 2 diabetes mellitus with diabetic polyneuropathy (Chronic) Hospital Course and Treatment Imaging Results: Diagnostic Data Chest X-Ray 03/09/19 10:42 IMPRESSION: Limited examination due to rotation. The left hemithorax is unremarkable. The right hemithorax was unable to be assessed due to the rotation of the patient. Electronically Signed: Abdirizak Courtney, at 11:26 EST , Service support , Consultations 03/09/19 16:40 Consult: Onc/Wound/advanced solutions architect Routine Comment: Reason for Consult:: abdominal wounds Operations: None Procedures: None Summary of Care Provided: The patient is a 63 year old F admitted 03/09/2019 due to low blood pressure at [facility]. 1. Acute kidney injury on chronic kidney disease stage IV-Lasix held. Improved with IV fluids. Repeat BMP in 3 days. Continue to hold Lasix pending repeat BMP. 2. Acute diarrhea, secondary to viral gastroenteritis-other infectious etiology including C. difficile ruled out. 3. 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 Shay catheter changed in emergency room. Afebrile. Urine culture growing gram-negative galindo although this appears chronic. 4. Transient hypotension-improved on admission. Improved with IV fluids. Home beta-chary and lisinopril regimen reduced. 5. Recent diagnosis cardiomyopathy with EF 20%, unknown etiology-echo completed prior at [facility]. Unrelated to presenting complaints/admission. Continue outpatient follow-up. Continue low-dose lisinopril, beta-chary and Lasix regimen. 6. 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 Recent follow-up 02/01/2019. Continue dressing changes which include Aquasol AG to lower mid abdominal ulcer, silver hydrogel to ulcers on right abdomen. Keep areas covered. Patient has a history of picking/scratching abdominal ulcers. Continue follow-up with wound center. 7. Hypertension-metoprolol and lisinopril reduced as noted above. 8. Hyperlipidemia- continue statin. 9. Anemia of chronic disease/iron deficiency anemia-stable, continue iron supplementation. 10. 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 11. Morbid obesity- calorie controlled diet. 12. Anxiety/depression/bipolar disorder/personality disorder-continue venlafaxine, Seroquel. 13. Chronic hypoxia respiratory failure-on baseline O2 requirements. Continue supplement oxygen to maintain O2 at or above 90%. General: Alert, Oriented x3, Cooperative HEENT: Atraumatic, PERRLA, EOMI, Normocephalic Oral: Dry Mucosa Neck: Supple, No JVD, Negative Carotid Bruits Lungs: Clear to auscultation, Diminished Cardiovascular: Regular rate, Regular Rhythm, Normal S1, Normal S2, No murmurs Abdomen: Bowel Sounds Present, Soft, Non Tender, Non-Distended, Obese Extremities: No clubbing, No cyanosis, Capillary Refill Less than 3 Seconds Skin: - - Generalized scattered abrasions secondary to chronic picking, abdominal dressings covering scabbed areas intact. Musculoskeletal: No Tenderness to Palpation of Joints or Extremities, - - Left BKA Neurological: Cranial nerves II-XII grossly intact, Neuro grossly intact Psych/Mental Status: Normal Affect, Appropriate Patient seen and examined prior to discharge. Physical assessment as noted above. Patient is stable for discharge with follow up recommendations as noted above. This patient was seen by DIMPLE Nicole under the supervision of Dr. Riley. - Physical Exam Vitals/I&O's: Vital Signs Temp Pulse Resp BP Pulse Ox 98.1 F 82 18 104/60 100 03/10/19 10:45 03/10/19 10:45 03/10/19 10:45 03/10/19 10:45 03/10/19 10:45 Oxygen Flow Rate (L/min) 2 Oxygen Delivery Method Room Air Weight: 304 lb 14.389 oz Body Mass Index (BMI) 47.7 Finger Stick Blood Glucose 122 Intake and Output for Last 24 Hours 03/08/19 03/09/19 03/10/19 23:59 23:59 23:59 Intake Total 1325 / 1625 1915 / 1915 Output Total 950 / 950 Balance 1325 / 950 965 / 965 Microbiology Past 72 Hours 03/09/19 13:10 Urine Catheter - Catheter Urine Culture - Preliminary Gram negative galindo 03/09/19 13:10 Stool Enteric Bacteriology - Final 03/09/19 13:10 Stool C. difficile DNA Amplification - Final Laboratory Results 03/09/19 12:01: Lactic Acid 0.8 03/09/19 13:10: Urine Color Yellow, Urine Clarity Turbid, Urine pH 6.0, Ur Specific [place] 1.015, Urine Protein 100 H, Urine Glucose (UA) Normal, Urine Ketones Negative, Urine Occult Blood 250 H, Urine Nitrite Negative, Urine Bilirubin Negative, Urine Urobilinogen Normal, Ur Leukocyte Esterase 500 H, Urine RBC 0 SEEN, Urine WBC >100 SEEN, Ur Squamous Epith Cells 0 SEEN, Urine Bacteria 2+, Urine Mucus 0 SEEN 03/09/19 21:44: POC Glucose 39 L* 03/09/19 22:06: POC Glucose 59 L 03/09/19 22:56: POC Glucose 75 03/10/19 00:05: POC Glucose 108 03/10/19 02:28: POC Glucose 93 03/10/19 04:47: POC Glucose 96 03/10/19 05:24: Sodium 141, Potassium 4.1, Chloride 110 H, Carbon Dioxide 23.0, Anion Gap 8, BUN 64 H, Creatinine 2.72 H, Estim Creat Clear Calc 21.12, Est GFR (MDRD) Af Amer 23 L, Est GFR (MDRD) Non-Af 19 L, BUN/Creatinine Ratio 23.5 H, Glucose 79, Calcium 8.1 L 03/10/19 06:31: POC Glucose 78 03/10/19 11:37: POC Glucose 103 Current Medications Acetaminophen (Tylenol) 650 mg PO Q6H PRN PRN PRN Reason: FEVER Hydrocodone Bitart/Acetaminophen ([place] 5mg-325mg) 1 tablet PO Q8H PRN PRN PRN Reason: Pain Score 1-1010 Calamine/Phenol (Calmoseptine Ointment) 1 applic TOPICAL BID REPLACED BY [facility]; Protocol Last Admin: 03/10/19 10:08 Dose: 1 applicatio Documented by: Heparin Sodium (Porcine) (Heparin Na) 5,000 unit SC Q12 REPLACED BY [facility] Last Admin: 03/10/19 10:11 Dose: 5,000 unit Documented by: Hydroxyzine Pamoate (Vistaril Pamoate Capsule) 50 mg PO QHS PRN PRN Reason: SLEEP Hydroxyzine Pamoate (Vistaril Pamoate Capsule) 25 mg PO DAILY REPLACED BY [facility] Last Admin: 03/10/19 10:12 Dose: 25 mg Documented by: Sodium Chloride () 1,000 mls @ 100 mls/hr IV .Q10H REPLACED BY [facility] Last Admin: 03/10/19 02:32 Dose: 100 mls/hr Documented by: Loperamide HCl (Imodium) 4 mg PO PRN PRN PRN Reason: Diarrhea Metoprolol Tartrate (Lopressor (Beta Chary)) 12.5 mg PO BID REPLACED BY [facility] Last Admin: 03/10/19 10:11 Dose: 12.5 mg Documented by: Nutritional Formula ([place]un[place] - [place] Flavor) 1 packet PO BID REPLACED BY [facility] Last Admin: 03/10/19 10:11 Dose: 1 packet Documented by: Nutritional Formula (Lactose Free) (Glucerna Shake) 120 ml PO 4X/DAY REPLACED BY [facility] Last Admin: 03/10/19 10:10 Dose: Not Given Documented by: Nystatin (Mycostatin Powder) 1 applic TOPICAL TID REPLACED BY [facility]; Protocol Ondansetron HCl (Zofran Odt) 4 mg PO Q6H PRN PRN PRN Reason: NAUSEA Ondansetron HCl (Zofran) 4 mg IV Q8H PRN PRN PRN Reason: NAUSEA/VOMITING Pantoprazole Sodium (Protonix) 40 mg PO DAILY REPLACED BY [facility] Last Admin: 03/10/19 10:12 Dose: 40 mg Documented by: Paroxetine HCl (Paxil) 40 mg PO DAILY REPLACED BY [facility] Last Admin: 03/10/19 10:13 Dose: 40 mg Documented by: Pravastatin Sodium (Pravachol) 10 mg PO QHS REPLACED BY [facility] Last Admin: 03/09/19 22:46 Dose: 10 mg Documented by: Quetiapine Fumarate (Seroquel) 300 mg PO QHS REPLACED BY [facility] Last Admin: 03/09/19 22:46 Dose: 300 mg Documented by: Sodium Chloride () 10 - 40 ml IV UD PRN PRN Reason: SALINE FLUSH Last Admin: 03/09/19 17:47 Dose: 10 ml Documented by: Venlafaxine HCl (Effexor Xr) 225 mg PO DAILY REPLACED BY [facility] Last Admin: 03/10/19 10:09 Dose: 225 mg Documented by: Home Medications: Medications to take at Discharge Ascorbic Acid [Vitamin C] 500 mg PO BID 05/28/18 Calcium Carbonate [Tums] 500 mg PO TIDCM 05/28/18 Calcium Carbonate/Vitamin D3 [Calcium 600-Vit D3 200 Tablet] 1 ea PO BID 05/28/18 Meclizine HCl 25 mg PO DAILY PRN PRN 05/28/18 Multivitamin [Multivitamins] 1 ea PO DAILY 05/28/18 Pravastatin Sodium 10 mg PO DAILY 05/28/18 hydrOXYzine pamoate capsule [Vistaril pamoate capsule] 25 mg PO DAILY 05/28/18 Ondansetron [Zofran Odt] 4 mg PO Q6H PRN PRN 06/10/18 Pantoprazole Sodium [Protonix] 40 mg PO DAILY #30 tab 06/14/18 Hydrocodone/Acetaminophen [[place] 5-325 Tablet] 1 each PO Q8H PRN PRN 07/25/18 Cholecalciferol (VIT D3) [Vitamin D3] 2,000 unit PO DAILY 03/09/19 Ferrous Sulfate 325 mg PO BID 03/09/19 Furosemide [Lasix] 40 mg PO BIDLX 03/09/19 Hydroxyzine Pamoate 50 mg PO QHS PRN 03/09/19 Nitroglycerin 0.4 mg SL PRN PRN 03/09/19 Nut.tx.gluc Intol,Lf,Soy/Fiber [Boost Glucose Control Liquid] 237 ml PO TID 03/09/19 Paroxetine HCl [Paxil] 40 mg PO DAILY 03/09/19 Pyridoxine HCl [Vitamin B-6] 100 mg PO DAILY 03/09/19 Quetiapine Fumarate [Seroquel] 50 mg PO DAILY 03/09/19 Quetiapine Fumarate [Seroquel] 300 mg PO DAILY 03/09/19 Venlafaxine HCl [Venlafaxine HCl ER] 75 mg PO DAILY 03/09/19 Venlafaxine HCl [Venlafaxine HCl ER] 150 mg PO DAILY 03/09/19 Lisinopril 2.5 mg PO DAILY #0 03/10/19 Menthol/Lanolin/Calamine/Znox [Calmoseptine Ointment] 1 applic TOPICAL BID tube 03/10/19 Metoprolol Tartrate [Lopressor (beta chary)] 12.5 mg PO BID tab 03/10/19 Nystatin Powder [Mycostatin Powder] 1 applic TOPICAL TID bottle 03/10/19 Primary Care Physician: Leroy Marie MD [Primary Care Provider] - Please follow up with your Primary Care Physician in: 1 Week Disposition: Custodial facility Minutes spent on discharge:: 35 Patient Condition:: Stable Medical Necessity - Tobacco Use Smoking Status: Never smoker Tobacco Use: Non-smoker Meaningful Use Info Meaningful Use Diagnoses (Choose all that apply): None applicable
--- NOTE | 2019-03-10 12:50 | CASEMGMT ---
Social Work Note Pt is discharging back to [facility] today. STEPHAN faxed completed discharge paperwork to [facility] including transfer to extended care facility, signed medication list and any scripts. Original in SNF folder and copy on pt's chart. 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 Pt is bariatric and needs bariatric cot. [facility] is only company that can provide bariatric cots. STEPHAN placed a call to [facility] and arranged transportation via bariatric cot for 5:00pm as this is the earliest [facility] states they are able to transport pt. STEPHAN placed a call to Yaron at [facility] and updated her on discharge and transportation time. STEPHAN placed a call to pt's sister Allie who is HCPOA (pt does have periods of confusion) and updated her that pt is discharging back to [facility] today and transportation time. STEPHAN updated charge nurse and RN on transportation time and explained that pt is bariatric and needs bariatric cot and earliest [facility] is able to transport with bariatric cot is 5:00pm. 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
== END 2019-03-10 18:25 | disposition skilled nursing facility (03) ==
LOC: ED 11:32 → MS3 13:33
PROVIDERS: Admitting Provider Internal Medicine; Emergency Provider Emergency Medicine; Family Provider Family Medicine; PCP Family Medicine; Visit Provider Internal Medicine
DX: N17.9 Acute kidney failure, unspecified (principal); E11.22 Type 2 diabetes mellitus with diabetic chronic kidney disease; I12.9 Hypertensive chronic kidney disease with stage 1 through stage 4 chronic kidney disease, or unspecified chronic kidney disease; N18.4 Chronic kidney disease, stage 4 (severe); A08.4 Viral intestinal infection, unspecified; E78.5 Hyperlipidemia, unspecified; D50.9 Iron deficiency anemia, unspecified; E66.01 Morbid (severe) obesity due to excess calories; F60.9 Personality disorder, unspecified; F31.9 Bipolar disorder, unspecified; D63.1 Anemia in chronic kidney disease; R19.7 Diarrhea, unspecified; E11.42 Type 2 diabetes mellitus with diabetic polyneuropathy; F41.9 Anxiety disorder, unspecified; R33.9 Retention of urine, unspecified; E86.1 Hypovolemia; J96.11 Chronic respiratory failure with hypoxia; Z68.42 Body mass index [BMI] 45.0-49.9, adult; Z71.3 Dietary counseling and surveillance; Z93.50 Unspecified cystostomy status; Z89.512 Acquired absence of left leg below knee; Z87.891 Personal history of nicotine dependence; Z79.899 Other long term (current) drug therapy; Z91.19 Patient's noncompliance with other medical treatment and regimen; E11.622 Type 2 diabetes mellitus with other skin ulcer; L98.499 Non-pressure chronic ulcer of skin of other sites with unspecified severity
CPT/HCPCS: 36415; 51702; 71045; 80048; 81001; 82962; 83605; 84484; 85025; 85610; 87040; 87077; 87086; 87088; 87186; 87493; 87506; 93005; 96361; 96365; 96366; 96367; 96372; 96375; 97802; 99218; 99285; J7030; J7040; J7050; A4216; G0378; J2405